=== PATIENT | female | born 1985 | race Two or more races ===

== ENCOUNTER 2019-12-11 17:24 | Emergency (ER) | payer OTHER, SELFPAY ==
[2019-12-11 17:25] VITALS: BP 150/88; PULSE 81; RESP 20; TEMP 36.4; O2SAT 100
[2019-12-11 18:04] VITALS: BP 150/88; PULSE 100; RESP 20; TEMP 36.4; O2SAT 100
--- NOTE | 2019-12-11 18:18 | ED.GENADULT ---
HPI - General Adult General Chief complaint: Headache Stated complaint: headache History of Present Illness HPI narrative: Patient is a 34-year-old female presents the urgent care via POV for evaluation of a headache that has been present for approximately 5 days. She reports her headache to be intermittent and stabbing and throbbing in nature. Headache is located in the occipital region that radiates to frontal region. She also reports mild nausea, lightheaded, fatigue, and photophobia. No relief with 1000 mg of Tylenol. Current pain is 5 out of 10 on a pain scale. Sleep improved symptoms. Of note, she reports she has been unusually stressed. She states she has a 4-month-old, a sister who relies on her for emotional support, and lack of sleep. Denies history of hypertension, renal insufficiency, diabetes mellitus. pertinent negatives: fever, chills, sweats, change in appetite, poor p.o. intake, dizziness, lymphadenopathy, vision changes, swelling, erythema, weakness, syncope, vertigo, LOC, seizure activity, memory loss, difficulty with coordination/gait/equilibrium, paresthesias, abdominal pain, vomiting, diarrhea, constipation, shortness of breath, cough, chest pain, and heart palpitations/murmurs. Additionally, she denies any systemic symptoms, illness, or condition (eg, fever, weight loss, cancer, , immunocompromised state, including human immunodeficiency virus [HIV]). The onset is not new or sudden. Hx of headaches. Today's headache is different to previous headaches. She states this headache is more painful and it is the worst headache of her life. No associated conditions or features (eg, head trauma, illicit drug use, or toxic exposure; headache awakens from sleep, is worse with Valsalva maneuvers, or is precipitated by cough, exertion, or sexual activity) Related Data Home Medications Medication Instructions Recorded Confirmed norethindrone (contraceptive) mg 12/11/19 Allergies Allergy/AdvReac Type Severity Reaction Status Date / Time latex Allergy Mild ITCHING Verified 06/27/19 12:36 Review of Systems Review of Systems: Narrative: All other systems reviewed and are negative [facility] Family History Family History Grandparent Diabetes mellitus Carcinoma of colon Father Adrenal disease Heart disease Mother Parkinson disease Sibling Dameon de la Tourette disorder Social History Social History Smoking status: Unknown if ever smoked Second hand tobacco smoke exposure: No Alcohol intake: never Substance use: never Gender identity (if verbalized by the patient): Female Comments I have reviewed and agree with the patient's past medical, surgical, social, and family hx as documented by the RN. There is no relevant family history pertinent to the presenting complaint. Exam Narrative: Exam Narrative: GENERAL: Well-appearing, well-nourished, and in no acute distress. HEAD: Normocephalic, atraumatic. No sinus tenderness or facial swelling appreciated. No evidence of ear bleeding or drainage from ears. No evidence of foreign bodies. No signs of basilar skull fracture: no hemotympanum, bautista's sign, or raccoon's eyes. EYES: PERRLA and EOMI. No evidence of erythema, swelling, or drainage. ENT: Bilateral external ears and ear canals normal. Bilateral TMs are normal. No TM perforation. Nares clear, no septal hematoma or epistaxis. Bilateral turbinates without erythema/ swelling. Mucous membranes moist and pink. Uvula is midline without erythema and swelling. No evidence of petechial rash, cobblestoning, lesions, ulcers, erythema, swelling, exudates, peritonsillar abscess, tenting, or drooling. Breath odor and voice normal. NECK: Supple. No injury or pain appreciated. No lymphadenopathy or nuchal rigidity appreciated. CHEST: Bilateral lung
== END 2019-12-11 18:21 | disposition left against medical advice (07) ==
PROVIDERS: Emergency Provider Nurse Practitioner Family
DX: R51 Headache (principal); R01.1 Cardiac murmur, unspecified
CPT/HCPCS: 99213; G0463

== ENCOUNTER → 2021-05-15 03:47 | Outpatient (CLI) | payer OTHER, SELFPAY ==
[2021-05-15 18:14] LABS: SARS-CoV-2 RNA PCR Negative
== END ==
PROVIDERS: PCP Family Medicine; Visit Provider Physician Assistant Medical
DX: Z20.822 Contact with and (suspected) exposure to COVID-19 (principal); R09.89 Other specified symptoms and signs involving the circulatory and respiratory systems
CPT/HCPCS: C9803; U0003; U0005

== ENCOUNTER → 2021-10-08 08:36 | Outpatient (CLI) | payer OTHER, SELFPAY ==
--- NOTE | ~2021-10-08 | XR_ITS ---
EXAMINATION: XR foot RT min 3V EXAM DATE: 10/08/2021 08:54 INDICATION: M79.671 - Pain in right foot. TECHNIQUE: Right foot dorsoplantar, lateral and oblique projections obtained and reviewed. There is no prior study for comparison. FINDINGS: Right metatarsal bones unremarkable. There are no acute fractures or dislocations identifi ed. There is no subcutaneous gas. The soft tissue is unremarkable. There are no radiopaque foreig n bodies. There are no bony erosions identified. No periosteal reaction or band of sclerosis to sugg est subacute stress fracture. IMPRESSION: 1. Unremarkable XR foot RT min 3V exam. Reviewed, dictated and finalized at location A. ER MACHINE HAND
== END ==
PROVIDERS: PCP Family Medicine; Visit Provider Nurse Practitioner Family
DX: M79.671 Pain in right foot (principal)
CPT/HCPCS: 73630

== ENCOUNTER 2021-12-23 08:00 | Outpatient (RCR) | payer OTHER, SELFPAY ==
--- NOTE | 2021-11-25 10:08 | PTOPEVAL ---
PHYSICAL THERAPY INITIAL EVALUATION. Thank you for referring Whit Rivers to [facility].? The patient is scheduled to be seen for therapy?2x/week for 4 weeks. Please review, sign, date and return this plan of care JUAN. I agree with and certify that the following plan of care is medically necessary. Referring Physician Date Attending Provider: Abbey Ferguson DPM *PT Outpatient Evaluation Start: 11/25/21 Evaluation Information Diagnosis R plantar fascitis Onset Sep' Subjective Information Pt states she went to the foot Query Text:As Reported By Patient/ doctor 2 weeks ago, they gave Family her custom shoe insoles. She states she can only tolerate standing 4-5 hours before she absolutely needs to sit down, her pain increases during walking. She has a job that requires her to stand all day. Pt described her pain as someone stabbing her heel, since this started she has been walking on just the ball of her foot which causes other pains. 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 Pain started just in heel, is now along the medial arch, ball of her foot, and ankle, she also reports numbness and tingling. Pain Assessment Right Heel(s) Reported Pain Level 4 Pain Description Numbness,Stabbing,Tingling, With Movement Pain Frequency Acute,Intermittent Lowest Pain Intensity 2 Greatest Pain Intensity 10 Lower Extremity Range of Motion Gross Lower Extremity Range of Motion R hamstring - 35 Comments L hamsting -20 Ankle/Foot Range of Motion Right Ankle Dorsiflexion With Knee Extension 10 Range of Motion - Active Ankle Dorsiflexion With Knee Extension 18 Range of Motion - Passive Ankle Dorsiflexion With Knee Flexed 16 Range of Motion - Active Ankle Plantarflexion Range of Motion - 46 Active Ankle Range of Motion Comments L active df with knee bent 18 L active df with knee straight 0 L active pf 44 Foot
--- NOTE | 2021-12-16 08:30 | PCPTNOTE ---
Patient called & cancelled scheduled appointment this date due to children being sick.
--- NOTE | 2021-12-23 08:38 | PTOPEVAL ---
PHYSICAL THERAPY PROGRESS REPORT AND DISCHARGE NOTE. Thank you for referring Whit Rivers to [facility].? The patient is to be discharged from skilled physical therapy services at this time. Please review, sign, date and return this plan of care JUAN. I agree with and certify that the following plan of care is medically necessary. Referring Physician Date Attending Provider: Abbey Ferguson DPM *PT Outpatient Evaluation Start: 11/25/21 Evaluation Information Diagnosis R plantar fascitis Onset Sep' Subjective Information Pt states her pain in doing Query Text:As Reported By Patient/ better, she reports good Family compliance with her home exercise program. She has occasional heel pain but the stretches she has been taught help to relieve this. 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 Pain Assessment Right Heel(s) Reported Pain Level 0 Greatest Pain Intensity 3 Lower Extremity Range of Motion Gross Lower Extremity Range of Motion R hamstring - 20 Comments L hamstring -20 Ankle/Foot Range of Motion Right Ankle Dorsiflexion With Knee Extension 10 active Ankle Dorsiflexion With Knee Extension 18 passive Ankle Dorsiflexion With Knee Flexed 18 active Ankle Plantarflexion Range of Motion - 45 active Ankle Range of Motion Comments L active df with knee bent 18 L active df with knee straight 12 L active pf 44 Foot/Toe Range of Motion Comments B great toe extension 80 deg Lower Extremity Muscle Strength Testing Gross Lower Extremity Strength limited ROM during single leg heel raise Ankle Strength Right Ankle Dorsiflexion Strength 5 Normal Ankle Plantarflexion Strength 5 Normal Ankle Eversion Strength 5 Normal Ankle Inversion Strength 5 Normal Posture Ankle/Foot Posture (L) Neutral,(R) Neutral Foot Arch Posture (L) Medium Arch,(R) Medium Arch Gait Assessment Gait Pattern Assessment Other Gait Observations Increased pelvic rotation, and slight in toeing PT Clinical Summary Whit presents to therapy today for her progress report following 3 visits of therapy to address her plantar fascitis. Today she demonstrates increase active and passive ankle ROM, increase ankle strength, and
== END 2021-12-30 14:30 | disposition home or self-care (01) ==
LOC: ANHPT 08:00
PROVIDERS: PCP Family Medicine; Visit Provider Student in an Organized Health Care Education/Training Program
DX: M72.2 Plantar fascial fibromatosis (principal)
CPT/HCPCS: 97110; 97112; 97140; 97161; 97530

== ENCOUNTER 2022-02-19 14:04 | Emergency (ER) | payer OTHER, SELFPAY ==
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
[2022-02-19 14:06] VITALS: BP 156/104; PULSE 105; RESP 14; TEMP 36.5; O2SAT 99
[2022-02-19] MEDS: IBUPROFEN 600 MG TABLET PO (14:49)
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
--- NOTE | 2022-02-19 15:32 | PC.NURSE ---
removed c-collar - ok per Dr Robbins
== END 2022-02-19 16:31 | disposition home or self-care (01) ==
PROVIDERS: Emergency Provider Emergency Medicine; PCP Family Medicine
DX: S06.0X0A Concussion without loss of consciousness, initial encounter (principal); S16.1XXA Strain of muscle, fascia and tendon at neck level, initial encounter; Z86.2 Personal history of diseases of the blood and blood-forming organs and certain disorders involving the immune mechanism; E66.01 Morbid (severe) obesity due to excess calories; Z68.41 Body mass index [BMI] 40.0-44.9, adult; E55.9 Vitamin D deficiency, unspecified; V43.52XA Car driver injured in collision with other type car in traffic accident, initial encounter
CPT/HCPCS: 72125; 72128; 99284; A9270

== ENCOUNTER 2022-02-25 03:00 | Emergency (ER) | payer OTHER, SELFPAY ==
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
[2022-02-25 03:01] VITALS: BP 121/75; PULSE 69; RESP 18; TEMP 36.1; O2SAT 100
[2022-02-25 03:16] VITALS: BP 105/64; PULSE 71; RESP 18; O2SAT 96
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
[2022-02-25] MEDS: methocarbamoL 750 MG TABLET PO (03:52)
[2022-02-25 03:57] VITALS: BP 138/84; PULSE 72; RESP 16; O2SAT 100
== END 2022-02-25 03:58 | disposition home or self-care (01) ==
PROVIDERS: Emergency Provider Family Medicine; PCP Family Medicine
DX: M62.830 Muscle spasm of back (principal); E66.01 Morbid (severe) obesity due to excess calories; Z68.41 Body mass index [BMI] 40.0-44.9, adult; E55.9 Vitamin D deficiency, unspecified; F41.9 Anxiety disorder, unspecified; Z86.2 Personal history of diseases of the blood and blood-forming organs and certain disorders involving the immune mechanism; Z79.899 Other long term (current) drug therapy; V49.40XA Driver injured in collision with unspecified motor vehicles in traffic accident, initial encounter; M47.814 Spondylosis without myelopathy or radiculopathy, thoracic region
CPT/HCPCS: 72070; 99283; A9270

== ENCOUNTER 2023-07-22 19:47 | Emergency (ER) | payer OTHER, SELFPAY ==
[2023-07-22] VITALS (7 sets, daily range): BP systolic 119–135; BP diastolic 71–77; PULSE 80–90; RESP 13–19; TEMP 36.1; O2SAT 97–100
--- NOTE | ~2023-07-22 | CT_ITS ---
EXAMINATION: CT abdomen pelvis w con DATE: 07/22/2023 21:44 INDICATION: Abdominal pain. Diarrhea. Leukocytosis. TECHNIQUE: Computed tomography (CT) of the abdomen and pelvis was performed with 100 mL Omnipaque 350 intravenous contrast. Automated exposure control and iterative reconstruction technique were employe d. The dose-length product was 1605.66 mGy-cm. COMPARISON: CT abdomen and pelvis 11/28/2005 FINDINGS: The visualized portions of the lung bases demonstrate mild kyphosis. No pleural effusion. T he heart size is normal. No pericardial effusion. The liver is normal. There are gallstones in the ga llbladder, which is normal in size. The spleen, pancreas, adrenal glands, and kidneys are normal. The re are no dilated loops of bowel. There is liquid stool in the colon correlating with the symptom of diarrhea. The appendix is normal. There are no pathologically enlarged lymph nodes. There is no free intraperitoneal fluid. There is mild thoracic and lumbar spondylosis. IMPRESSION: 1. Cholelithiasis. No evidence of acute cholecystitis. Reviewed, dictated and finalized at location E. COLLECTOR OPERATOR
--- NOTE | ~2023-07-22 | XR_ITS ---
EXAMINATION: XR chest 1V portable DATE: 07/22/2023 20:29 INDICATION: Syncope. TECHNIQUE: A single frontal view of the chest was obtained. COMPARISON: Chest single view 09/13/2018 FINDINGS: There is mild elevation of left hemidiaphragm. No pneumonia, pleural effusion, or pneumotho rax. The heart size is normal. IMPRESSION: 1. No acute cardiopulmonary disease. Reviewed, dictated and finalized at location E. PATIONAL THERAPIST'S ASSISTANT
--- NOTE | 2023-07-22 19:50 | ECG_ITS ---
Measurements Intervals [place] Rate: 50 P: 5 VT: 168 QRS: 28 QRSD: 82 T: 37 QT: 402 QTc: 370 Interpretive Statements SINUS BRADYCARDIA BASELINE WANDER- III, AVR, AVF, V1-V2 BORDERLINE ECG COMPARED TO ECG 05/23/2019 12:55:25 SINUS BRADYCARDIA NOW PRESENT Electronically Signed On 07-24-2023 11:59:09 DETAIL MANAGER by Wilmer Garcia D.O.
[2023-07-22 20:04] LABS: Glucose Point of Care 150 mg/dl (65-105)
[2023-07-22 20:09] LABS: Basophils Absolute Auto 0.1 K/mm3 (0.0-0.1); Basophils Percent Auto 0.3 % (0.2-1.2); Eosinophils Absolute Auto 0.3 K/mm3 (0-0.3); Eosinophils Percent Auto 1.3 % (0-4.4); Hematocrit 43.6 % (37.0-47.0); Immature Granulocyte Absolute 0.07 K/mm3 (0.00-0.031); Immature Granulocyte Percent A 0.3 % (0-0.5); Lymphocytes Absolute Auto 3.31 K/mm3 (0.9-3.2); Lymphocytes Percent Auto 16.2 % (18.3-44.2); Mean Corpuscular HGB Conc 32.1 g/dl (32-36); Mean Corpuscular Hemoglobin 27.3 pg (26-34); Mean Corpuscular Volume 85.2 fl (80-100); Mean Platelet Volume 9.8 fl (7.4-10.4); Monocytes Absolute Auto 1.2 K/mm3 (0.1-0.6); Monocytes Percent Auto 5.9 % (2.6-8.5); Neutrophils Absolute Auto 15.6 K/mm3 (1.3-6.7); Platelet Count Result 322 k/mm3 (150-375); Red Blood Count 5.12 M/mm3 (4.2-5.4); Red Cell Distribution Width 12.7 % (11.5-14.5); White Blood Count 20.5 K/mm3 (4.5-10.0)
[2023-07-22 20:18] LABS: Alanine Aminotransferase 40 U/L (6-35); Albumin Level 4.7 g/dL (3.5-5.1); Alkaline Phosphatase 105 U/L (38-126); Anion Gap 13 mmol/L (8-16); Aspartate Amino Transferase 31 U/L (14-36); Bilirubin,Total 0.8 mg/dL (0.2-1.3); Blood Urea Nitrogen 13 mg/dL (7-17); Calcium 9.6 mg/dL (8.4-10.2); Carbon Dioxide 21 mmol/L (22-30); Chloride 104 mmol/L (98-107); Estimated Glomerular Filt Rate > 60; Glucose 149 mg/dL (65-110); Potassium 3.7 mmol/L (3.4-5.0); Sodium 138 mmol/L (137-145)
[2023-07-22] MEDS: SODIUM CHLORIDE 0.9% IV 1,000 ML 999 ML IV CONT ×2 (20:22)
--- NOTE | 2023-07-22 20:29 | ED.GENADULT ---
HPI - General Adult General Chief complaint: Syncope Stated complaint: syncope Time Seen by Provider: 07/22/23 20:06 History of Present Illness HPI narrative: Patient is a 38-year-old female who presents the emergency department with chief complaint of syncope. Patient reports throughout the day she has had multiple episodes of diarrhea and has been unable to keep fluids in her body. Patient states that every time she drinks something she has explosive watery diarrhea patient reports that she does not really have abdominal pain but does have cramping right before she has a bowel movement. Patient states that she had several episodes where she became extremely lightheaded and then briefly passed out. The patient denies chest pain denies shortness of breath patient states that she has had similar episodes in the past whenever she is getting dehydrated Related Data Home Medications Medication Instructions Recorded Confirmed multivitamin 1 tablet PO DAILY 12/12/20 07/11/23 Allergies Allergy/AdvReac Type Severity Reaction Status Date / Time No Known Allergies Allergy Verified 07/11/23 08:20 Review of Systems Review of Systems: A 10 system review of systems was completed on the patient and is negative except for what is stated in the HPI. Nursing and ancillary documentation was reviewed. [facility] Past Medical History Medical History Acute left flank pain Anemia Anxiety BMI 40.0-44.9, adult BMI 45.0-49.9, adult Obesity, Class III, BMI 40-49.9 (morbid obesity) Seasonal allergies Tendinopathy of right biceps tendon Vitamin D deficiency Surgical History Surgical History History of wisdom tooth extraction Family History Family History Grandparent Diabetes mellitus Carcinoma of colon Father Adrenal disease Heart disease Mother Parkinson disease Sibling Dameon de la Tourette disorder Social History Social History Smoking status: Never smoker Second hand tobacco smoke exposure: No Alcohol intake: current Substance use: never Substance use type: does not use Lack of Transportation: No Lack of Food: Never True Current Housing: I Have Housing Concerned About Future Housing: No Difficulty Paying Gas/Electric Bills: No Difficulty Paying for Meds: No Currently Unemployed: No Education: Associate Degree Difficulty w/ Childcare or Family Care: No Living arrangements: with family Occupation/Education: occupation 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 Gender identity (if verbalized by the patient): Female Exam Narrative: GENERAL: Well-appearing, well-nourished, and in no acute distress. HEAD: Normocephalic, atraumatic. EYES: PERRLA and EOMI. ENT: Nares clear, no rhinorrhea or epistaxis. Mucous membranes moist. NECK: Supple. CHEST: Clear to auscultation. No respiratory distress. HEART: Regular rate and rhythm. No murmur heard. Normal peripheral pulses. ABDOMEN: Soft, nontender, nondistended, normal active bowel sounds. EXTREMITIES: Normal range of motion. No edema. SKIN: Warm, dry, no rash. NEURO: No focal deficits. Alert and oriented x3. PSYCH: Normal mood and affect. Course Vital Signs Vital signs: Vital Signs Temperature 36.1 C L 07/22/23 20:02 Pulse Rate 81 07/22/23 20:02 Respiratory Rate 14 07/22/23 20:02 Blood Pressure 125/71 07/22/23 20:02 Pulse Oximetry 97 07/22/23 20:02 Temperature 36.1 C L 07/22/23 20:02 Pulse Rate 90 07/22/23 22:00 Respiratory Rate 17 07/22/23 22:00 Blood Pressure 119/77 07/22/23 20:31 Pulse Oximetry 100 07/22/23 22:00 Medical Decision Making Vital Si
[2023-07-22 20:35] LABS: Lactic Acid Reflex 1.4 mmol/L (0.7-2.0)
[2023-07-22 20:41] LABS: Lipase 49 U/L (23-300); Magnesium 1.8 mg/dL (1.6-2.3)
[2023-07-22 21:49] LABS: Appearance Urine Cloudy (Clear); Bacteria Urine 1+ /hpf; Bilirubin Urine Negative (Negative); Blood Urine Negative (Negative); Color Urine Dark Yellow (Yellow); Glucose Urine UA Negative (Negative); Ketones Urine Negative (Negative); Leukocyte Esterase Ur Negative LEU/UL (Negative); Need Manual Microscopic Reviewed; Nitrate Urine Negative (Negative); Protein Urine Trace mg/dL (Negative); Specific Grav Ur 1.029 (1.001-1.035); Squamous Epithelial Cell Urine Few /hpf (Few); Urobilinogen Urine 0.2 mg/dL (<2.0)
[2023-07-22 21:50] LABS: Add Urine Microscopic? YES
== END 2023-07-22 23:12 | disposition home or self-care (01) ==
PROVIDERS: Emergency Provider Emergency Medicine; PCP Family Medicine
DX: R55 Syncope and collapse (principal); N39.0 Urinary tract infection, site not specified; R19.7 Diarrhea, unspecified
CPT/HCPCS: 36415; 71045; 74177; 80053; 81001; 81025; 82948; 83605; 83690; 83735; 85025; 87086; 93005; 96360; 99284; J2405; J7030; Q9967

== ENCOUNTER 2024-02-07 08:04 | Emergency (ER) | payer OTHER, SELFPAY ==
[2024-02-07 08:07] VITALS: BP 146/80; PULSE 82; RESP 17; O2SAT 99
--- NOTE | 2024-02-07 08:10 | ECG_ITS ---
SEE SCANNED COPY FOR CONFIRMED REPORT MTDD
[2024-02-07 08:12] VITALS: PULSE 87
[2024-02-07 08:17] VITALS: BP 146/80; PULSE 88
[2024-02-07 08:18] VITALS: BP 143/111; BP 146/103; PULSE 87; PULSE 88
[2024-02-07 08:40] LABS: Basophils Percent Auto 0.3 % (0.2-1.2); Eosinophils Absolute Auto 0.2 K/mm3 (0-0.3); Eosinophils Percent Auto 2.1 % (0-4.4); Hematocrit 39.7 % (37.0-47.0); Hemoglobin 12.9 g/dL (12.0-15.0); Immature Granulocyte Absolute 0.04 K/mm3 (0.00-0.031); Immature Granulocyte Percent A 0.4 % (0-0.5); Lymphocytes Percent Auto 21.5 % (18.3-44.2); Mean Corpuscular HGB Conc 32.5 g/dl (32-36); Mean Corpuscular Hemoglobin 28.1 pg (26-34); Mean Corpuscular Volume 86.5 fl (80-100); Mean Platelet Volume 9.6 fl (7.4-10.4); Monocytes Absolute Auto 0.6 K/mm3 (0.1-0.6); Monocytes Percent Auto 6.1 % (2.6-8.5); Neutrophils Absolute Auto 7.1 K/mm3 (1.3-6.7); Neutrophils Percent Auto 69.6 % (45.5-73.1); Platelet Count Result 298 k/mm3 (150-375); Red Blood Count 4.59 M/mm3 (4.2-5.4); Red Cell Distribution Width 12.7 % (11.5-14.5); White Blood Count 10.2 K/mm3 (4.5-10.0)
[2024-02-07 08:51] LABS: Alanine Aminotransferase 16 U/L (6-35); Albumin Level 4.1 g/dL (3.5-5.1); Alkaline Phosphatase 100 U/L (38-126); Anion Gap 6 mmol/L (4-12); Aspartate Amino Transferase 17 U/L (14-36); Bilirubin,Total 0.3 mg/dL (0.2-1.3); Blood Urea Nitrogen 12 mg/dL (7-17); Calcium 8.7 mg/dL (8.4-10.2); Carbon Dioxide 21 mmol/L (22-30); Chloride 111 mmol/L (98-107); Estimated CRCL calculation 108 ml/min; Estimated Glomerular Filt Rate > 60; Glucose 121 mg/dL (65-110); Potassium 3.7 mmol/L (3.4-5.0); Sodium 138 mmol/L (137-145)
[2024-02-07 09:22] VITALS: BP 110/64; PULSE 71; RESP 12; O2SAT 100
[2024-02-07] MEDS: SODIUM CHLORIDE 0.9% IV 1,000 ML 999 ML IV CONT (09:42)
--- NOTE | 2024-02-07 10:00 | ED.DIZZY ---
HPI - Dizziness General Chief Complaint: Dizziness Stated Complaint: dizzy Time Seen by Provider: 02/07/24 08:56 Source: patient Mode of arrival: ambulatory Limitations: no limitations History of Present Illness HPI Narrative: This is a 38-year-old female who presents to the ED with chief complaint of dizziness and palpitations this started last night. Patient reports the dizziness is worse with movements. States it does feel like she gets lightheaded and that she might pass out. Denies any full syncope. Reports that when she lays on her right side sometimes the palpitations will improve. Dizziness and palpitations seem to be intermittent. Denies any chest pain or shortness of breath. She does note that her kids have been sick and she started to get sick yesterday. Denies fevers, chills, cough, headache, back pain, abdominal pain, nausea, vomiting, numbness, weakness. States she has not had any problems with ambulation. Related Data Home Medications Medication Instructions Recorded Confirmed multivitamin 1 tablet PO DAILY 12/12/20 12/02/23 cholecalciferol (vitamin D3) 125 250 mcg PO DAILY 12/02/23 01/09/24 mcg (5,000 unit) capsule norethindrone acetate 1 mg-ethinyl 1 tablet PO DAILY 01/09/24 01/09/24 estradiol 20 mcg tablet Allergies Allergy/AdvReac Type Severity Reaction Status Date / Time No Known Allergies Allergy Verified 02/07/24 08:13 Review of Systems Review of Systems: All systems as dictated in HPI PMFSH Past Medical History Medical History Acute left flank pain Anemia Anxiety BMI 40.0-44.9, adult Obesity, Class III, BMI 40-49.9 (morbid obesity) Seasonal allergies Tendinopathy of right biceps tendon Vitamin D deficiency Surgical History Surgical History History of wisdom tooth extraction Family History Family History Grandparent Diabetes mellitus Carcinoma of colon Father Adrenal disease Heart disease Mother Parkinson disease H/O Jaciel thyroiditis Sibling Dameon de la Tourette disorder Low testosterone Social History Social History Smoking status: Never smoker Second hand tobacco smoke exposure: No Alcohol intake: current Substance use: never Substance use type: does not use Do You Feel Safe in your Home?: Yes Lack of Transportation: No Lack of Food: Never True Current Housing: I Have Housing Concerned About Future Housing: No Difficulty Paying Gas/Electric Bills: No Difficulty Paying for Meds: No Currently Unemployed: No Education: Associate Degree Difficulty w/ Childcare or Family Care: No Living arrangements: with family Occupation/Education: occupation 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 Gender identity (if verbalized by the patient): Female Exam Narrative: GENERAL: Well-appearing, well-nourished, and in no acute distress. HEAD: Normocephalic, atraumatic. EYES: PERRLA and EOMI. ENT: Nares clear, no rhinorrhea or epistaxis. Mucous membranes moist. Oropharynx without tonsillar hypertrophy exudate or other lesions. NECK: Supple. No adenopathy or masses. CHEST: No respiratory distress. Clear to auscultation. No wheezes rales or rhonchi HEART: Regular rate and rhythm. No murmur heard. Normal peripheral pulses. ABDOMEN: Soft, nontender, nondistended, normal active bowel sounds. MSK: Normal range of motion. No edema. SKIN: Warm, dry, no rash. NEURO: Alert and oriented x4. No focal deficits. No nystagmus. Coordination intact. PSYCH: Normal mood and affect. Course Vital Signs Vital signs: Vital Signs Pulse Rate 82 02/07/24 08:07 Respiratory Rate 17 02/07/24 08:07 Blood Pressure 146/80 H 02/07/24 08:07 Pulse Oxi
[2024-02-07] MEDS: METOCLOPRAMIDE HCL INJ 10 MG/2 ML VIAL IV PUSH (10:39)
[2024-02-07] MEDS: MECLIZINE HCL 25 MG TABLET PO (10:39)
[2024-02-07 10:53] VITALS: BP 128/93; PULSE 75; RESP 15; O2SAT 100
== END 2024-02-07 10:55 | disposition home or self-care (01) ==
PROVIDERS: Emergency Medicine; Emergency Provider Physician Assistant; PCP Family Medicine
DX: R42 Dizziness and giddiness (principal); Z86.2 Personal history of diseases of the blood and blood-forming organs and certain disorders involving the immune mechanism; E55.9 Vitamin D deficiency, unspecified; Z79.3 Long term (current) use of hormonal contraceptives; Z79.899 Other long term (current) drug therapy
CPT/HCPCS: 36415; 80053; 85025; 93005; 96361; 96374; 99284; A9270; J2765; J7030

== ENCOUNTER 2024-04-18 08:31 | Outpatient (CLI) | payer OTHER, SELFPAY ==
[2024-04-18 09:06] LABS: Anion Gap 10 mmol/L (4-12); Blood Urea Nitrogen 15 mg/dL (7-17); Carbon Dioxide 24 mmol/L (22-30); Chloride 103 mmol/L (98-107); Cholesterol 180 mg/dL (0-200); Estimated Glomerular Filt Rate > 60; Glucose 100 mg/dL (65-110); HDL Direct 46 mg/dL; Potassium 4.5 mmol/L (3.4-5.0); Sodium 137 mmol/L (137-145); Triglycerides 143 mg/dL (<150)
[2024-04-18 09:16] LABS: Basophils Percent Auto 0.4 % (0.2-1.2); Eosinophils Absolute Auto 0.2 K/mm3 (0-0.3); Eosinophils Percent Auto 2.1 % (0-4.4); Hematocrit 40.5 % (37.0-47.0); Hemoglobin 12.9 g/dL (12.0-15.0); Immature Granulocyte Absolute 0.04 K/mm3 (0.00-0.031); Immature Granulocyte Percent A 0.4 % (0-0.5); Lymphocytes Percent Auto 27.7 % (18.3-44.2); Mean Corpuscular HGB Conc 31.9 g/dl (32-36); Mean Platelet Volume 10.2 fl (7.4-10.4); Monocytes Absolute Auto 0.7 K/mm3 (0.1-0.6); Monocytes Percent Auto 7.1 % (2.6-8.5); Neutrophils Absolute Auto 5.8 K/mm3 (1.3-6.7); Neutrophils Percent Auto 62.3 % (45.5-73.1); Platelet Count Result 311 k/mm3 (150-375); Red Cell Distribution Width 12.6 % (11.5-14.5); White Blood Count 9.4 K/mm3 (4.5-10.0)
[2024-04-18 09:17] LABS: LDL Cholesterol Direct 106 mg/dL
[2024-04-18 10:02] LABS: Hemoglobin A1C 5.6 % (<5.7)
[2024-04-18 10:10] LABS: Iron 51 ug/dL (37-170)
[2024-04-18 10:19] LABS: Percent Iron Saturation 14 % (20-50)
[2024-04-18 12:05] LABS: Vitamin D 25 Hydroxy 30.9 ng/mL
[2024-04-18 12:57] LABS: Free T4 Free Thyroxine 1.06 ng/mL (0.78-2.19)
== END 2024-04-18 08:32 | disposition home or self-care (01) ==
LOC: ANHLAB 08:34
PROVIDERS: PCP Family Medicine; Visit Provider Family Medicine
DX: E55.9 Vitamin D deficiency, unspecified (principal); R73.9 Hyperglycemia, unspecified; Z13.220 Encounter for screening for lipoid disorders; D64.9 Anemia, unspecified; F41.9 Anxiety disorder, unspecified
CPT/HCPCS: 36415; 80048; 80061; 82306; 82728; 83036; 83540; 83550; 84439; 84443; 85025

== ENCOUNTER 2024-04-18 08:54 | Outpatient (CLI) | payer OTHER, SELFPAY ==
--- NOTE | ~2024-04-18 | XR_ITS ---
3 VIEWS LUMBAR SPINE Ordering provider: Tawanda Sanders MD History: . M54.16 - Radiculopathy, lumbar region; chronic . Comparison: None. FINDINGS: VERTEBRAL BODIES: No visible fracture or subluxation. DISK SPACES: Normal. SOFT TISSUES: Normal. IMPRESSION: No acute osseous abnormality lumbar spine. Reviewed, dictated and finalized at location A.
== END 2024-04-18 08:55 ==
PROVIDERS: PCP Chiropractor; Visit Provider Family Medicine
DX: M54.16 Radiculopathy, lumbar region (principal)
CPT/HCPCS: 72114

== ENCOUNTER 2025-05-05 08:21 | Outpatient (CLI) | payer OTHER, SELFPAY ==
--- NOTE | ~2025-05-05 | US_ITS ---
US OB limited 05/05/2025 09:27 Indication: Possible fluid leak. Evaluate amniotic fluid index. Procedure: Limited obstetrical ultrasound Comparison: 05/21/2016 Findings: There is a single living intrauterine in vertex presentation. heart rate 162 BPM. Placenta is posterior without previa. Normal HILL measures 19.5 cm. No cervical funneling. Impression: 1: Normal HILL measures 19.5 cm. Reviewed, dictated and finalized at location O. Impression: 1: Normal HILL measures 19.5 cm.
[2025-05-05 08:46] VITALS: BP 116/74; PULSE 91
--- NOTE | 2025-05-05 09:26 | PC.NURSE ---
Called Larissa Whitaker CNM with ultrasound report. January D/C home.
[2025-05-05 09:36] LABS: OBXCEM ROM Plus Negative (Negative)
== END 2025-05-05 09:30 | disposition home or self-care (01) ==
LOC: ANHOBOP 08:27 → ANHOBPP 08:28
PROVIDERS: Advanced Practice Midwife; PCP Family Medicine; Visit Provider Obstetrics & Gynecology
DX: O42.90 Premature rupture of membranes, unspecified as to length of time between rupture and onset of labor, unspecified weeks of gestation (principal); Z3A.00 Weeks of gestation of pregnancy not specified
CPT/HCPCS: 59025; 76815; 84112; 99199

== ENCOUNTER 2025-07-26 05:48 | Inpatient (IN) | payer OTHER, SELFPAY ==
[2025-07-26] VITALS (210 sets, daily range): BP systolic 112–180; BP diastolic 52–128; PULSE 25–109; RESP 20–24; TEMP 36.6–37.1; O2SAT 80–100; BMI 48.8
--- OUTSIDE RECORDS SUMMARY | 2025-07-26 05:55 | XMS_ITS | Clinical Summary ---
Author Organization [facility] Address [address] [place] [address] Care Team Providers Care Gis Instructor Name Role Phone Nathaniel Chacon MD Primary Care Provider [phone] Allergies No known active allergies Medications multi vitamin/minerals tablet Take 1 tablet by mouth daily. Active Cholecalciferol (VITAMIN D) 1000 UNIT tablet Take 1,000 Units by mouth daily. Active Ascorbic Acid (VITAMIN C) 100 MG tablet Take 100 mg by mouth daily. Active guaifenesin-code ine 100-10 MG/5ML syrupIndications :Acute bronchitis, unspecified organism,Upper respiratory tract infection, unspecified type Take 5 mLs by mouth every 4 (four) hours as needed for Cough. 120 mL 08/24/2018 Active predniSONE 20 MG tabletIndication s:Acute bronchitis, unspecified organism,Upper respiratory tract infection, unspecified type 3 tabs by mouth today, then 2 tabs by mouth every morning x 3 days, then 1 tab every morning x 3 days, then 1/2 tab every morning x 3 days. 14 tablet 08/24/2018 Active Active Problems Problem Noted Date Diagnosed Date BMI 40.0-44.9, adult 09/13/2017 Overview (08/24/2018): Transitioned From: Obese Occipital headache 09/13/2017 Weight increased 09/13/2017 Immunizations Immunization Administration Dates Next Due Tdap (Boostrix) 04/26/2016 Family History Medical History Relation Comments None Father CVA Maternal Grandmother Cancer Maternal Grandmother None Mother Diabetes Paternal Grandfather Tourettes Sister Relation Status Comments Father Maternal Grandmother Mother Paternal Grandfather Sister Social History Tobacco Use Types Packs/Day Years Used Date Smoking Tobacco: Never Smokeless Tobacco: Never Comments Unknown Sex and Gender Information Value Date Recorded Sex Assigned at Not on file Legal Sex Female 11:37 PM CDT Gender Identity Not on file Sexual Orientation Not on file Last Filed Vital Signs Vital Sign Reading Time Taken Comments Blood Pressure 110/70 08/24/2018 10:38 AM [facility] Pulse 90 08/24/2018 10:38 AM [facility] Temperature 36.9 C (98.4 F) 08/24/2018 10:38 AM [facility] Respiratory Rate 18 08/24/2018 10:38 AM [facility] Oxygen Saturation 99% 08/24/2018 10:38 AM [facility] Inhaled Oxygen Concentration - - Weight 133.4 kg (294 lb) 08/24/2018 10:38 AM [facility] Height 170.2 cm (5' 7) 08/24/2018 10:38 AM [facility] Body Mass Index 46.05 08/24/2018 10:38 AM [facility] Plan of Treatment Health Maintenance Due Date Last Done Comments Cervical Cancer Screening Pa p Smear (Age 30 to 64) Every 3 Years 1987 Annual Physical 1990 Hepatitis B Vaccines (1 of 3 - 19+ 3-dose series) 2006 HPV Vaccines (1 - 3-dose SCD M series) 2014 Cervical Cancer Screening Pa p with HPV Testing (Age 30 to 64) Every 5 Years 2017 Cervical Cancer Screening with HPV 2017 COVID-19 Vaccine (2024-2 6 season) 2025 Influenza Adult (#1) 2025 DTaP, Tdap and Td Vaccines ( 2 - Td or Tdap) 04/26/2026 04/26/2016 Hepatitis C Completed 11/17/2016 Hepatitis A Vaccines Aged Out No long er eligible based on patient's age to complete this topic Meningococcal B Vaccine Aged Out No l onger eligible based on patient's age to complete this topic Meningococcal Vaccine Aged Out No susan raquel eligible based on patient's age to complete this topic Pneumococcal Vaccine: Pediat rics (0 to 5 Years) and At-Risk Patients (6 to 49 Years) Aged Out No longer eligi ble based on patient's age to complete this topic RSV Immunizations Under 20 Months Aged Out No longer eligible based on patient's age to complete this topic Procedures Procedure Name Priority Date/Time Associated Diagnosis Comments HEPATITIS C ANTIBODY Routine 11/17/2016 9:15 AM [facility] from Last 3 Months or Most Recently Relevant to Health Maintenance Results * HEPATITIS C ANTIBODY (11/17/2016 9:15 AM [facility]) HEPATITIS C AB NON-REACTI VE NON-REACTI VE 11/18/2016 6:29 PM [facility] Comment: TEST[place] [address] SERUM OR PLASMA SPECIMEN / Unknown 11/17/2016 9:15 AM [facility] 11/17/2016 10:47 AM [facility] us Generic Conversion Md [facility] Final R esult [facility] [address] [place] [id number], from Last 3 Months or Most Recently Relevant to Health Maintenance Insurance [place] Care Teams Gis Instructor Relationship Specialty Start Date End Date Nathaniel Chacon MD PCP - General INTERNAL MEDICINE 08/24/18
--- OUTSIDE RECORDS SUMMARY | 2025-07-26 05:55 | XMS_ITS | Continuity of Care Document ---
Author Organization [facility] Address [address] [place] [address] Care Team Providers Care Manager Cancer Name Role Phone HA MORTON Primary Care Provider Assessment No assessment recorded. Plan of Treatment Reminders Order Date Submit Date Provider Last Modified By Organization Details Last Modified Time Details Appointments INDUCTI ON 2024 06:00A M VILLA BurnsM Not available Not available Not available U/S OB BPP 2024 08:30A M ULTRASOUND Not available Not available Not available NST 2024 09:00A M NST SCHEDULE Not available Not available Not available OB ROUTINE 2024 09:30A M Medina Whitaker CNM Not available Not available Not available U/S OB BPP 2024 08:30A M ULTRASOUND Not available Not available Not available NST 2024 09:00A M NST SCHEDULE Not available Not available Not available OB ROUTINE 2024 09:30A M Medina Whitaker CNM Not available Not available Not available U/S OB BPP 2024 08:30A M ULTRASOUND Not available Not available Not available NST 2024 09:00A M NST SCHEDULE Not available Not available Not available OB ROUTINE 2024 09:30A M Medina Whitaker CNM Not available Not available Not available Lab None recorde d. Referral None recorde d. Procedures None recorde d. Surgeries None recorde d. Imaging non-str ess test 2024 025 [email or web address], [address], [address], [place], [address], 07/10/2025 17:20:31 Medication Orders None recorde d. Patient TargetsNo targets recorded. Patient InstructionsNo instructions recorded. Reason for Referral None Reported. Results Created Date Observation Date Name Description Value Unit Range Abnormal Flag Note LastModifiedBy Organization Detail LastModifiedTime 02/15/2002/14/2025 [UNIT Y] ANEUP LOIDY NIPT fraction 3.9% normal Not Available [facility] [address], [place], [address], 02/14/2025 01:55:32 02/15/20 25 02/14/2025 [UNIT Y] ANEUP LOIDY NIPT 22Q11.2 microdeletio n LOW RISK <1 in 10,000 normal Not Available [facility] [address], [place], [address], 02/14/2025 01:55:32 02/15/20 25 02/14/2025 [UNIT Y] ANEUP LOIDY NIPT sex chromosome aneuploidy NOT DETECT ED normal Not Available [facility] [address], [place], [address], 02/14/2025 01:55:32 02/15/20 25 02/14/2025 [UNIT Y] ANEUP LOIDY NIPT monosomy X LOW RISK <1 in 10,000 normal Not Available [facility] [address], [place], [address], 02/14/2025 01:55:32 02/15/20 25 02/14/2025 [UNIT Y] ANEUP LOIDY NIPT trisomy 13 LOW RISK <1 in 10,000 normal Not Available [facility] [address], [place], [address], 02/14/2025 01:55:32 02/15/20 25 02/14/2025 [UNIT Y] ANEUP LOIDY NIPT trisomy 18 LOW RISK <1 in 10,000 normal Not Available [facility] [address], [place], [address], 02/14/2025 01:55:32 02/15/20 25 02/14/2025 [UNIT Y] ANEUP LOIDY NIPT trisomy 21 LOW RISK <1 in 10,000 normal Not Available [facility] [address], [place], [address], 02/14/2025 01:55:32 02/15/20 25 02/14/2025 [UNIT Y] ANEUP LOIDY NIPT sex MALE normal Not Available [facility] [address], [place], [address], 02/14/2025 01:55:32 02/15/20 25 02/14/2025 [UNIT Y] ANEUP LOIDY NIPT gestation SINGLE TON normal Not Available [facility] [address], [place], [address], 02/14/2025 01:55:32 02/15/20 25 02/14/2025 [UNIT Y] ANEUP LOIDY NIPT for detailed report, see pdf See PDF normal Not Available [facility] [address], [place], [address], 02/14/2025 01:55:32 02/18/20 25 02/17/2025 [UNIT Y] OTTO Islas sickle cell disease/beta -thalassemia /hemoglobino pathies carrier screen NEGATI VE normal Not Available [facility] [address], [place], [address], 02/17/2025 10:24:39 02/18/20 25 02/17/2025 [UNIT Y] OTTO JORGE Islas alpha-thalas semia carrier screen NEGATI VE normal Not Available [facility] [address], [place], [address], 02/17/2025 10:24:39 02/18/20 25 02/17/2025 [UNIT Y] OTTO LANGFORD Janel cystic fibrosis carrier screen NEGATI VE normal Not Available [facility] [address], [place], [address], 02/17/2025 10:24:39 02/18/20 25 02/17/2025 [UNIT Y] OTTO LANGFORD Janel spinal muscular atrophy carrier screen NEGATI VE 2 SMN1 copies , SNP not presen t normal Not Available [facility] [address], [place], [address], 02/17/2025 10:24:39 02/18/20 25 02/17/2025 [UNIT Y] OTTO KNIGHTTracie Islas for detailed report, see pdf See PDF normal Not Available [facility] [address], [place], [address], 02/17/2025 10:24:39 02/07/20 25 02/06/2025 CBC W/DIF F WBC 12.0 10'3/ uL 3.5-10 .5 high Not Available [facility] (Lab) [address], [place], [address], 02/07/2025 13:12:55 02/07/20 25 02/06/2025 CBC W/DIF F RBC 4.52 10'6/ uL (based on docume nted legal sex) 3.80-5 .20 Not Available [facility] (Lab) [address], [place], [address], 02/07/2025 13:12:55 02/07/20 25 02/06/2025 CBC W/DIF F HGB 12.4 g/dL (based on docume nted legal sex) 11.6-1 5.4 Not Available [facility] (Lab) [address] , [place], [address], 02/07/2025 13:12:55 02/07/20 25 02/06/2025 CBC W/DIF F HCT 38.9 % (based on docume nted legal sex) 34.0-4 5.0 Not Available [facility] (Lab) [address], [place], [address], 02/07/2025 13:12:55 02/07/20 25 02/06/2025 CBC W/DIF F MCV 86.1 fL 80.0-9 9.0 Not Available [facility] (Lab) [address], [place], [address], 02/07/2025 13:12:55 02/07/20 25 02/06/2025 CBC W/DIF F MCH 27.4 pg 27.0-3 4.0 Not Available [facility] (Lab) [address], [place], [address], 02/07/2025 13:12:55 02/07/20 25 02/06/2025 CBC W/DIF F MCHC 31.9 g/dL 32.0-3 5.5 low Not Available [facility] (Lab) [address], [place], [address], 02/07/2025 13:12:55 02/07/20 25 02/06/2025 CBC W/DIF F RDW 12.9 % 11.0-1 5.0 Not Available [facility] (Lab) [address], [place], [address], 02/07/2025 13:12:55 02/07/20 25 02/06/2025 CBC W/DIF F plt 281 10'3/ uL 150-40 0 Not Available [facility] (Lab) [address] [place], [address], 02/07/2025 13:12:55 02/07/20 25 02/06/2025 CBC W/DIF F MPV 11.0 fL 8.8-12 .1 Not Available [facility] (Lab) [address], [place], [address], 02/07/2025 13:12:55 02/07/20 25 02/06/2025 CBC W/DIF F NRBC's 0.0 % 0.0 Not Available [facility] (Lab) [address], [place], [address], 02/07/2025 13:12:55 02/07/20 25 02/06/2025 CBC W/DIF F absolute NRBCs 0.0 10'3/ uL no refere nce range establ ished Not Available [facility] (Lab) [address], [place], [address], 02/07/2025 13:12:55 02/07/20 25 02/06/2025 CBC W/DIF F neutrophils 72.5 % 34.0-7 3.0 Not Available [facility] (Lab) [address], [place], [address], 02/07/2025 13:12:55 02/07/20 25 02/06/2025 CBC W/DIF F lymphocytes 20.4 % 15.0-5 0.0 Not Available [facility] (Lab) [address], [place], [address], 02/07/2025 13:12:55 02/07/20 25 02/06/2025 CBC W/DIF F monocytes 5.9 % 1.0-15 .0 Not Available [facility] (Lab) [address], [place], [address], 02/07/2025 13:12:55 02/07/20 25 02/06/2025 CBC W/DIF F eosinophils 0.6 % 0.0-8. 0 Not Available [facility] (Lab) [address], [place], [address], 02/07/2025 13:12:55 02/07/20 25 02/06/2025 CBC W/DIF F basophils 0.3 % 0.0-2. 0 Not Available [facility] (Lab) [address], [place], [address], 02/07/2025 13:12:55 02/07/2002/06/2025 CBC W/DIF F immature granulocytes 0.3 % no define d refere nce range Immat ure Granu locyt es (IG) repre sents autom ated enume ratio n of Metam yeloc ytes, Myelo cytes and Promy elocy shlomo when IG is < 5%. Blast s are not inclu ded in IG and repor ruy separ ately if prese nt. Not Available [facility] (Lab) [address], [place], [address], 02/07/2025 13:12:55 02/07/20 25 02/06/2025 CBC W/DIF F absolute neutrophils 8.7 10'3/ uL 1.5-8. 0 high Not Available [facility] (Lab) [address], [place], [address], 02/07/2025 13:12:55 02/07/20 25 02/06/2025 CBC W/DIF F absolute lymphocytes 2.4 10'3/ uL 1.0-4. 0 Not Available [facility] (Lab) [address], [place], [address], 02/07/2025 13:12:55 02/07/20 25 02/06/2025 CBC W/DIF F absolute monocytes 0.7 10'3/ uL 0.2-1. 0 Not Available [facility] (Lab) [address], [place], [address], 02/07/2025 13:12:55 02/07/20 25 02/06/2025 CBC W/DIF F absolute eosinophils 0.1 10'3/ uL 0.0-0. 6 Not Available [facility] (Lab) [address], [place], [address], 02/07/2025 13:12:55 02/07/20 25 02/06/2025 CBC W/DIF F absolute basophils 0.0 10'3/ uL 0.0-0. 3 Not Available [facility] (Lab) [address], [place], [address], 02/07/2025 13:12:55 02/07/2002/06/2025 CBC W/DIF F absolute immature granulocytes 0.0 10'3/ uL 0.00-0 .10 Refer ence range s for nonbi nary/ inter sex or unspe cifie d gende r patie nts have not been estab lishe d. Pleas e refer to the follo wing table for range s estab lishe d for cisge nder patie nts and evalu ate in the clini patrice kristal xt of the indiv idual patie nt: https :[email or web address] [email or web address] book. [email or web address].or g/gen derx Not Available [facility] (Lab) [address], [place], [address], 02/07/2025 13:12:55 02/07/2002/06/2025 HEPAT ITIS B SURFA CE ANTIG EN hepatitis B surface antigen Non-re active non-re active This assay was perfo rmed using [employer] ratio n reage nts and test kits. Value s obtai dexter with other assay metho ds or kits canno t be used inter lopez eably . Not Available [facility] (Lab) [address], [place], [address], 02/07/2025 13:12:55 02/07/2002/06/2025 HIV 1/2 ANTIG EN/AN TIBOD Y, REFLE X CONFI RMATI ON HIV antigen/anti body Nonrea ctive nonrea ctive HIV-1 antig en and HIV-1 /HIV- 2 antib odies were not detec ruy. No labor atory evide nce of HIV infec tion. Not Available [facility] (Lab) [address] , [place], [address], 02/07/2025 13:12:56 02/07/2002/06/2025 HEPAT ITIS C ANTIB ANITA SCREE N, REFLE X TO CONFI RMATI ON hepatitis C antibody Non-re active non-re active Antib odies to HCV Not Detec ruy, does not exclu de the possi bilit y of expos ure to HCV. Not Available [facility] (Lab) [address], [place], [address], 02/07/2025 13:12:56 02/07/2002/06/2025 RUBEL LA IGG ANTIB ANITA, QUANT rubella antibodies, IgG Reacti ve reacti ve Not Available [facility] (Lab) [address], [place], [address], 02/07/2025 13:12:56 02/07/2002/06/2025 RUBEL LA IGG ANTIB ANITA, QUANT rubella antibodies, IgG quant 61.9 IU/mL >=10 Non-r eacti ve (Non- Immun e) <10 IU/mL React essie (Immu ne) > or = 10 IU/mL Not Available [facility] (Lab) [address], [place], [address], 02/07/2025 13:12:56 02/07/2002/06/2025 TYPE/ RH/SC REEN ABO/Rh type O POS Not Available [facility] (Lab) [address], [place], [address], 02/07/2025 13:12:57 02/07/2002/06/2025 TYPE/ RH/SC REEN antibody screen NEG Not Available [facility] (Lab) [address], [place], [address], 02/07/2025 13:12:57 02/07/20 25 02/06/2025 TYPE/ RH/SC REEN exp date 2024 23:59 Not Available [facility] (Lab) [address], [place], [address], 02/07/2025 13:12:57 02/07/20 25 02/06/2025 RPR SCREE N, REFLE X TITER /CONF IRMAT ION RPR qualitative Nonrea ctive nonrea ctive Not Available [facility] (Lab) [address], [place], [address], 02/07/2025 13:12:57 02/07/20 25 02/06/2025 HEMOG LOBIN A1C hemoglobin A1C 5.4 % 4.0-5. 6 The Ameri can Diabe shlomo [employer] iatio n recom mends that a prima ry goal of thera py shoul d be a HBA1C of < 7% and that physi cians shoul d reeva luate the treat ment regim en in patie nts with HBA1C value s consi stent ly > 8%. <5.7% Carol l 5.7 - 6.4% Incre ased risk for diabe shlomo >=6.5 % Diagn ostic of diabe shlomo <7.0% Goal of thera py >8.0% Actio n sugge sted Not Available [facility] (Lab) [address], [place], [address], 02/07/2025 13:12:57 02/07/2002/06/2025 CULTU RE: URINE result report SEE RESULT S BELOW Test: Cultu re: Urine Speci men Sourc e: Urine - Clean Catch Speci men Type: Urine Speci men Date: 2024 1737 Resul t Date: 2024 0700 Resul t Statu s: Final resul t Abnor mal: No Resul ting Lab: [facility] [address] [facility] [address] Tel: CULTU RE ----- ----- ----- --- Cultu re resul t (>=3 organ isms prese nt) indic ates possi ble conta minat ion. Repea t cultu re if sympt oms indic ate. Not Available [facility] (Lab) [address], [place], [address], 02/08/2025 08:03:32 05/28/20 25 02/06/2025 drug scree n, urine Amphetamines : negati ve Not Available [facility] [address], [place], [address], 02/06/2025 18:30:19 02/07/20 25 02/06/2025 drug scree n, urine Cannabinoids : negati ve Not Available [facility] [address], [place], [address], 02/06/2025 18:30:19 02/07/20 25 02/06/2025 drug scree n, urine Cocaine: negati ve Not Available [facility] [address], [place], [address], 02/06/2025 18:30:19 02/07/20 25 02/06/2025 drug scree n, urine Opiates: negati ve Not Available [facility] [address], [place], [address], 02/06/2025 18:30:19 02/07/20 25 02/06/2025 drug scree n, urine Phenocyclidi ne: negati ve Not Available [facility] [address], [place], [address], 02/06/2025 18:30:19 02/07/20 25 02/06/2025 drug scree n, urine Barbiturates : negati ve Not Available [facility] [address], [place], [address], 02/06/2025 18:30:19 02/07/20 25 02/06/2025 drug scree n, urine Benzodiazepi brayan: negati ve Not Available [facility] [address], [place], [address], 02/06/2025 18:30:19 02/07/20 25 02/06/2025 drug scree n, urine Ethanol: negati ve Not Available [facility] [address], [place], [address], 02/06/2025 18:30:19 02/07/20 25 02/06/2025 drug scree n, urine Hallucinogen s: negati ve Not Available [facility] [address], [place], [address], 02/06/2025 18:30:19 02/07/20 25 02/06/2025 drug scree n, urine Inhalants: negati ve Not Available [address], [place], [address], 02/06/2025 18:30:19 02/07/20 25 02/06/2025 drug scree n, urine Anabolic Steroids: negati ve Not Available [address], [place], [address], 02/06/2025 18:30:19 02/07/20 25 02/06/2025 drug scree n, urine Other: negati ve Not Available [address], [place], [address], 02/06/2025 18:30:19 05/15/20 25 05/15/2025 HEMOG LOBIN (HGB) HGB 10.9 g/dL (based on docume nted legal sex) 11.6-1 5.4 low Not Available [facility] (Lab) [address], [place], [address], 05/16/2025 09:55:38 05/15/20 25 05/15/2025 HEMAT OCRIT (HCT) HCT 35.7 % (based on docume nted legal sex) 34.0-4 5.0 Not Available [facility] (Lab) [address], [place], [address], 05/16/2025 09:55:39 05/15/2005/15/2025 CBC W/DIF F WBC 14.6 10'3/ uL 3.5-10 .5 high Not Available [facility] (Lab) [address], [place], [address], 05/16/2025 09:55:39 05/15/2005/15/2025 CBC W/DIF F RBC 4.01 10'6/ uL (based on docume nted legal sex) 3.80-5 .20 Not Available [facility] (Lab) [address], [place], [address], 05/16/2025 09:55:39 05/15/2005/15/2025 CBC W/DIF F HGB 10.9 g/dL (based on docume nted legal sex) 11.6-1 5.4 low Not Available [facility] (Lab) [address], [place], [address], 05/16/2025 09:55:39 05/15/2005/15/2025 CBC W/DIF F HCT 35.7 % (based on docume nted legal sex) 34.0-4 5.0 Not Available [facility] (Lab) [address], [place], [address], 05/16/2025 09:55:39 05/15/2005/15/2025 CBC W/DIF F MCV 89.0 fL 80.0-9 9.0 Not Available [facility] (Lab) [address], [place], [address], 05/16/2025 09:55:39 05/15/2005/15/2025 CBC W/DIF F MCH 27.2 pg 27.0-3 4.0 Not Available [facility] (Lab) [address], [place], [address], 05/16/2025 09:55:39 05/15/2005/15/2025 CBC W/DIF F MCHC 30.5 g/dL 32.0-3 5.5 low Not Available [facility] (Lab) [address], [place], [address], 05/16/2025 09:55:39 05/15/2005/15/2025 CBC W/DIF F RDW 14.5 % 11.0-1 5.0 Not Available [facility] (Lab) [address], [place], [address], 05/16/2025 09:55:39 05/15/2005/15/2025 CBC W/DIF F plt 218 10'3/ uL 150-40 0 Not Available [facility] (Lab) [address], [place], [address], 05/16/2025 09:55:39 05/15/2005/15/2025 CBC W/DIF F MPV 11.1 fL 8.8-12 .1 Not Available [facility] (Lab) [address], [place], [address], 05/16/2025 09:55:39 05/15/2005/15/2025 CBC W/DIF F NRBC's 0.0 % 0.0 Not Available [facility] (Lab) [address], [place], [address], 05/16/2025 09:55:39 05/15/2005/15/2025 CBC W/DIF F absolute NRBCs 0.0 10'3/ uL no refere nce range establ ished Not Available [facility] (Lab) [address], [place], [address], 05/16/2025 09:55:39 05/15/2005/15/2025 CBC W/DIF F neutrophils 78.7 % 34.0-7 3.0 high Not Available [facility] (Lab) [address], [place], [address], 05/16/2025 09:55:39 05/15/20 05/15/2025 CBC W/DIF F lymphocytes 15.0 % 15.0-5 0.0 Not Available [facility] (Lab) [address], [place], [address], 05/16/2025 09:55:39 05/15/2005/15/2025 CBC W/DIF F monocytes 4.9 % 1.0-15 .0 Not Available [facility] (Lab) [address], [place], [address], 05/16/2025 09:55:39 05/15/2005/15/2025 CBC W/DIF F eosinophils 0.6 % 0.0-8. 0 Not Available [facility] (Lab) [address], [place], [address], 05/16/2025 09:55:39 05/15/2005/15/2025 CBC W/DIF F basophils 0.3 % 0.0-2. 0 Not Available [facility] (Lab) [address], [place], [address], 05/16/2025 09:55:39 05/15/2005/15/2025 CBC W/DIF F immature granulocytes 0.5 % no define d refere nce range Immat ure Granu locyt es (IG) repre sents autom ated enume ratio n of Metam yeloc ytes, Myelo cytes and Promy elocy shlomo when IG is < 5%. Blast s are not inclu ded in IG and repor ruy separ ately if prese nt. Not Available [facility] (Lab) [address], [place], [address], 05/16/2025 09:55:39 05/15/2005/15/2025 CBC W/DIF F absolute neutrophils 11.4 10'3/ uL 1.5-8. 0 high Not Available [facility] (Lab) [address], [place], [address], 05/16/2025 09:55:39 05/15/2005/15/2025 CBC W/DIF F absolute lymphocytes 2.2 10'3/ uL 1.0-4. 0 Not Available [facility] (Lab) [address], [place], [address], 05/16/2025 09:55:39 05/15/2005/15/2025 CBC W/DIF F absolute monocytes 0.7 10'3/ uL 0.2-1. 0 Not Available [facility] (Lab) [address], [place], [address], 05/16/2025 09:55:39 05/15/2005/15/2025 CBC W/DIF F absolute eosinophils 0.1 10'3/ uL 0.0-0. 6 Not Available [facility] (Lab) [address], [place], [address], 05/16/2025 09:55:39 05/15/2005/15/2025 CBC W/DIF F absolute basophils 0.1 10'3/ uL 0.0-0. 3 Not Available [facility] (Lab) [address], [place], [address], 05/16/2025 09:55:39 05/15/2005/15/2025 CBC W/DIF F absolute immature granulocytes 0.1 10'3/ uL 0.00-0 .10 Refer ence range s for nonbi nary/ inter sex or unspe cifie d gende r patie nts have not been estab lishe d. Pleas e refer to the follo wing table for range s estab lishe d for cisge nder patie nts and evalu ate in the clini patrice kristal xt of the indiv idual patie nt: https :[email or web address] [email or web address] [email or web address].or g/gen derx Not Available [facility] (Lab) [address], [place], [address], 05/16/2025 09:55:39 05/15/2005/15/2025 GTT - GESTA KHANH Bryce PRIMITIVO Janel, ACOG OB glucose, 1 hour screen 115 mg/dL 70-135 Not Available [facility] (Lab) [address], [place], [address], 05/16/2025 09:55:40 05/15/20 25 05/15/2025 URIC ACID uric acid 4.1 mg/dL 2.3-6. 6 Not Available [facility] (Lab) [address], [place], [address], 05/16/2025 09:55:40 05/15/20 25 05/15/2025 CMP(C OMPRE HENSI VE METAB OLIC PANEL ) sodium 138 mmol/ L 133-14 6 Not Available [facility] (Lab) [address], [place], [address], 05/16/2025 09:55:41 05/15/20 25 05/15/2025 CMP(C OMPRE HENSI VE METAB OLIC PANEL ) potassium 4.1 mmol/ L 3.5-5. 1 Not Available [facility] (Lab) [address], [place], [address], 05/16/2025 09:55:41 05/15/20 25 05/15/2025 CMP(C OMPRE HENSI VE METAB OLIC PANEL ) chloride 104 mmol/ L 98-107 Not Available [facility] (Lab) [address] [place], [address], 05/16/2025 09:55:41 05/15/20 25 05/15/2025 CMP(C OMPRE HENSI VE METAB OLIC PANEL ) carbon dioxide 24 mmol/ L 21-31 Not Available [facility] (Lab) [address] [place], [address], 05/16/2025 09:55:41 05/15/20 25 05/15/2025 CMP(C OMPRE HENSI VE METAB OLIC PANEL ) anion gap 10 mmol/ L 4-13 Not Available [facility] (Lab) [address], [place], [address], 05/16/2025 09:55:41 05/15/2005/15/2025 CMP(C OMPRE HENSI VE METAB OLIC PANEL ) blood urea nitrogen 7 mg/dL 7-25 Not Available [facility] (Lab) [address], [place], [address], 05/16/2025 09:55:41 05/15/2005/15/2025 CMP(C OMPRE HENSI VE METAB OLIC PANEL ) creatinine 0.55 mg/dL 0.60-1 .30 low Not Available [facility] (Lab) [address], [place], [address], 05/16/2025 09:55:41 05/15/2005/15/2025 CMP(C OMPRE HENSI VE METAB OLIC PANEL ) egfrcr (CKD-epi 2020) >90 mL/mi n/1.7 3_m2 >=60 Not Available [facility] (Lab) [address], [place], [address], 05/16/2025 09:55:41 05/15/2005/15/2025 CMP(C OMPRE HENSI VE METAB OLIC PANEL ) calcium 8.7 mg/dL 8.3-10 .5 Not Available [facility] (Lab) [address], [place], [address], 05/16/2025 09:55:41 05/15/2005/15/2025 CMP(C OMPRE HENSI VE METAB OLIC PANEL ) glucose 115 mg/dL 70-100 high Not Available [facility] (Lab) [address], [place], [address], 05/16/2025 09:55:41 05/15/2005/15/2025 CMP(C OMPRE HENSI VE METAB OLIC PANEL ) protein, total 5.7 g/dL 6.4-8. 3 low Not Available [facility] (Lab) [address], [place], [address], 05/16/2025 09:55:41 05/15/2005/15/2025 CMP(C OMPRE HENSI VE METAB OLIC PANEL ) albumin 3.1 g/dL 3.5-5. 0 low Not Available [facility] (Lab) [address], [place], [address], 05/16/2025 09:55:41 05/15/20 25 05/15/2025 CMP(C OMPRE HENSI VE METAB OLIC PANEL ) ALT 9 units /L 9-43 Not Available [facility] (Lab) [address], [place], [address], 05/16/2025 09:55:41 05/15/2005/15/2025 CMP(C OMPRE HENSI VE METAB OLIC PANEL ) alkaline phosphatase 114 units /L 34-104 high Not Available [facility] (Lab) [address], [place], [place], [address], 05/16/2025 09:55:41 05/15/20 25 05/15/2025 CMP(C OMPRE HENSI VE METAB OLIC PANEL ) AST 11 units /L 13-39 low Not Available [facility] (Lab) [address], [place], [address], 05/16/2025 09:55:41 05/15/2005/15/2025 CMP(C OMPRE HENSI VE METAB OLIC PANEL ) bilirubin, total 0.3 mg/dL 0.2-1. 2 Not Available [facility] (Lab) [address] [place], [address], 05/16/2025 09:55:41 05/15/2005/15/2025 HIV 1/2 ANTIG EN/AN TIBOD Y, REFLE X CONFI RMATI ON HIV antigen/anti body Nonrea ctive nonrea ctive HIV-1 antig en and HIV-1 /HIV- 2 antib odies were not detec ruy. No labor atory evide nce of HIV infec tion. Not Available [facility] (Lab) [address], [place], [address], 05/16/2025 09:55:41 05/15/20 25 05/15/2025 PROTE IN/CR EATIN INE RATIO , URINE creatinine, urine 13.0 mg/dL R-No refer ence range estab lishe d for this assay Not Available [facility] (Lab) [address], [place], [address], 05/16/2025 09:55:42 05/15/20 25 05/15/2025 PROTE IN/CR EATIN INE RATIO , URINE protein, urine <4 mg/dL R-No refer ence range estab lishe d for this assay Not Available [facility] (Lab) [address], [place], [address], 05/16/2025 09:55:42 05/15/20 25 05/15/2025 PROTE IN/CR EATIN INE RATIO , URINE protein/crea tinine ratio, urine . No Refer ence Range avail able for Rando m Urine s. Unabl e to perfo rm calcu latio n due to low david te yogi ntrat ion A prote in to creat inine ratio of >=0.1 9 is a good predi ctor of signi fican t prote inuri a. A level of <0.14 can rule out signi fican t prote inuri a. Not Available [facility] (Lab) [address], [place], [address], 05/16/2025 09:55:42 05/15/20 25 05/15/2025 RPR SCREE N, REFLE X TITER /CONF IRMAT ION RPR qualitative Nonrea ctive nonrea ctive Not Available [facility] (Lab) [address], [place], [address], 05/16/2025 09:55:42 06/26/20 25 06/26/2025 PROTE IN/CR EATIN INE RATIO , URINE creatinine, urine 177.6 mg/dL R-No refer ence range estab lishe d for this assay Not Available [facility] (Lab) [address], [place], [address], 06/27/2025 04:29:05 06/26/20 25 06/26/2025 PROTE IN/CR EATIN INE RATIO , URINE protein, urine 15 mg/dL R-No refer ence range estab lishe d for this assay Not Available [facility] (Lab) [address], [place], [address], 06/27/2025 04:29:05 06/26/2006/26/2025 PROTE IN/CR EATIN INE RATIO , URINE protein/crea tinine ratio, urine 0.08 . No Refer ence Range avail able for Rando m Urine s. A prote in to creat inine ratio of >=0.1 9 is a good predi ctor of signi fican t prote inuri a. A level of <0.14 can rule out signi fican t prote inuri a. Not Available [facility] (Lab) [address], [place], [address], 06/27/2025 04:29:05 06/26/20 25 06/26/2025 CBC W/DIF F WBC 13.4 10'3/ uL 3.5-10 .5 high Not Available [facility] (Lab) [address], [place], [address], 06/27/2025 04:29:05 06/26/20 25 06/26/2025 CBC W/DIF F RBC 4.22 10'6/ uL (based on docume nted legal sex) 3.80-5 .20 Not Available [facility] (Lab) [address], [place], [address], 06/27/2025 04:29:05 06/26/20 25 06/26/2025 CBC W/DIF F HGB 11.9 g/dL (based on docume nted legal sex) 11.6-1 5.4 Not Available [facility] (Lab) [address], [place], [address], 06/27/2025 04:29:05 06/26/2006/26/2025 CBC W/DIF F HCT 37.5 % (based on docume nted legal sex) 34.0-4 5.0 Not Available [facility] (Lab) [address], [place], [address], 06/27/2025 04:29:05 06/26/2006/26/2025 CBC W/DIF F MCV 88.9 fL 80.0-9 9.0 Not Available [facility] (Lab) [address], [place], [address], 06/27/2025 04:29:05 06/26/2006/26/2025 CBC W/DIF F MCH 28.2 pg 27.0-3 4.0 Not Available [facility] (Lab) [address], [place], [address], 06/27/2025 04:29:05 06/26/2006/26/2025 CBC W/DIF F MCHC 31.7 g/dL 32.0-3 5.5 low Not Available [facility] (Lab) [address], [place], [address], 06/27/2025 04:29:05 06/26/2006/26/2025 CBC W/DIF F RDW 14.6 % 11.0-1 5.0 Not Available [facility] (Lab) [address], [place], [address], 06/27/2025 04:29:05 06/26/2006/26/2025 CBC W/DIF F plt 224 10'3/ uL 150-40 0 Not Available [facility] (Lab) [address] [place], [address], 06/27/2025 04:29:05 06/26/20 06/26/2025 CBC W/DIF F MPV 12.2 fL 8.8-12 .1 high Not Available [facility] (Lab) [address], [place], [address], 06/27/2025 04:29:05 06/26/20 25 06/26/2025 CBC W/DIF F NRBC's 0.0 % 0.0 Not Available [facility] (Lab) [address], [place], [address], 06/27/2025 04:29:05 06/26/20 25 06/26/2025 CBC W/DIF F absolute NRBCs 0.0 10'3/ uL no refere nce range establ ished Not Available [facility] (Lab) [address], [place], [address], 06/27/2025 04:29:05 06/26/20 25 06/26/2025 CBC W/DIF F neutrophils 73.2 % 34.0-7 3.0 high Not Available [facility] (Lab) [address], [place], [address], 06/27/2025 04:29:05 06/26/20 25 06/26/2025 CBC W/DIF F lymphocytes 18.3 % 15.0-5 0.0 Not Available [facility] (Lab) [address], [place], [address], 06/27/2025 04:29:05 06/26/20 25 06/26/2025 CBC W/DIF F monocytes 7.5 % 1.0-15 .0 Not Available [facility] (Lab) [address], [place], [address], 06/27/2025 04:29:05 06/26/20 25 06/26/2025 CBC W/DIF F eosinophils 0.4 % 0.0-8. 0 Not Available [facility] (Lab) [address], [place], [address], 06/27/2025 04:29:05 06/26/20 25 06/26/2025 CBC W/DIF F basophils 0.2 % 0.0-2. 0 Not Available [facility] (Lab) [address], [place], [address], 06/27/2025 04:29:05 06/26/20 25 06/26/2025 CBC W/DIF F immature granulocytes 0.4 % no define d refere nce range Immat ure Granu locyt es (IG) repre sents autom ated enume ratio n of Metam yeloc ytes, Myelo cytes and Promy elocy shlomo when IG is < 5%. Blast s are not inclu ded in IG and repor ruy separ ately if prese nt. Not Available [facility] (Lab) [address], [place], [address], 06/27/2025 04:29:05 06/26/20 25 06/26/2025 CBC W/DIF F absolute neutrophils 9.8 10'3/ uL 1.5-8. 0 high Not Available [facility] (Lab) [address], [place], [address], 06/27/2025 04:29:05 06/26/20 25 06/26/2025 CBC W/DIF F absolute lymphocytes 2.5 10'3/ uL 1.0-4. 0 Not Available [facility] (Lab) [address], [place], [address], 06/27/2025 04:29:05 06/26/20 25 06/26/2025 CBC W/DIF F absolute monocytes 1.0 10'3/ uL 0.2-1. 0 Not Available [facility] (Lab) [address], [place], [address], 06/27/2025 04:29:05 06/26/20 25 06/26/2025 CBC W/DIF F absolute eosinophils 0.1 10'3/ uL 0.0-0. 6 Not Available [facility] (Lab) [address], [place], [address], 06/27/2025 04:29:05 06/26/20 25 06/26/2025 CBC W/DIF F absolute basophils 0.0 10'3/ uL 0.0-0. 3 Not Available [facility] (Lab) [address], [place], [address], 06/27/2025 04:29:05 06/26/20 25 06/26/2025 CBC W/DIF F absolute immature granulocytes 0.1 10'3/ uL 0.00-0 .10 Refer ence range s for nonbi nary/ inter sex or unspe cifie d gende r patie nts have not been estab lishe d. [facility] for range s estab lishe d for cisge nder patie nts and evalu ate in the clini patrice kristal xt of the indiv idual patie nt: [email or web address] :[email or web address] [email or web address] book. nm.or g/gen derx Not Available [facility] (Lab) [address], [place], [address], 06/27/2025 04:29:05 06/26/2006/26/2025 URIC ACID uric acid 4.8 mg/dL 2.3-6. 6 Not Available [facility] (Lab) [address] [place], [address], 06/27/2025 04:29:06 06/26/2006/26/2025 CMP(C OMPRE HENSI VE METAB OLIC PANEL ) sodium 138 mmol/ L 133-14 6 Not Available [facility] (Lab) [address] [place], [address], 06/27/2025 04:29:06 06/26/20 25 06/26/2025 CMP(C OMPRE HENSI VE METAB OLIC PANEL ) potassium 4.0 mmol/ L 3.5-5. 1 Not Available [facility] (Lab) [address] [place], [address], 06/27/2025 04:29:06 06/26/20 25 06/26/2025 CMP(C OMPRE HENSI VE METAB OLIC PANEL ) chloride 103 mmol/ L 98-107 Not Available [facility] (Lab) [address], [place], [address], 06/27/2025 04:29:06 06/26/20 25 06/26/2025 CMP(C OMPRE HENSI VE METAB OLIC PANEL ) carbon dioxide 26 mmol/ L 21-31 Not Available [facility] (Lab) [address], [place], [address], 06/27/2025 04:29:06 06/26/2006/26/2025 CMP(C OMPRE HENSI VE METAB OLIC PANEL ) anion gap 9 mmol/ L 4-13 Not Available [facility] (Lab) [address], [place], [address], 06/27/2025 04:29:06 06/26/2006/26/2025 CMP(C OMPRE HENSI VE METAB OLIC PANEL ) blood urea nitrogen 7 mg/dL 7-25 Not Available [facility] (Lab) [address], [place], [address], 06/27/2025 04:29:06 06/26/2006/26/2025 CMP(C OMPRE HENSI VE METAB OLIC PANEL ) creatinine 0.66 mg/dL 0.60-1 .30 Not Available [facility] (Lab) [address], [place], [address], 06/27/2025 04:29:06 06/26/2006/26/2025 CMP(C OMPRE HENSI VE METAB OLIC PANEL ) egfrcr (CKD-epi 2020) >90 mL/mi n/1.7 3_m2 >=60 Not Available [facility] (Lab) [address], [place], [address], 06/27/2025 04:29:06 06/26/20 25 06/26/2025 CMP(C OMPRE HENSI VE METAB OLIC PANEL ) calcium 9.0 mg/dL 8.3-10 .5 Not Available [facility] (Lab) [address], [place], [address], 06/27/2025 04:29:06 06/26/20 25 06/26/2025 CMP(C OMPRE HENSI VE METAB OLIC PANEL ) glucose 74 mg/dL 70-100 Not Available [facility] (Lab) [address], [place], [address], 06/27/2025 04:29:06 06/26/2006/26/2025 CMP(C OMPRE HENSI VE METAB OLIC PANEL ) protein, total 6.1 g/dL 6.4-8. 3 low Not Available [facility] (Lab) [address], [place], [address], 06/27/2025 04:29:06 06/26/20 25 06/26/2025 CMP(C OMPRE HENSI VE METAB OLIC PANEL ) albumin 3.3 g/dL 3.5-5. 0 low Not Available [facility] (Lab) [address], [place], [address], 06/27/2025 04:29:06 06/26/20 25 06/26/2025 CMP(C OMPRE HENSI VE METAB OLIC PANEL ) ALT 36 units /L 9-43 Not Available [facility] (Lab) [address], [place], [address], 06/27/2025 04:29:06 06/26/20 25 06/26/2025 CMP(C OMPRE HENSI VE METAB OLIC PANEL ) alkaline phosphatase 131 units /L 34-104 high Not Available [facility] (Lab) [address] [place], [address], 06/27/2025 04:29:06 06/26/20 25 06/26/2025 CMP(C OMPRE HENSI VE METAB OLIC PANEL ) AST 20 units /L 13-39 Not Available [facility] (Lab) [address], [place], [address], 06/27/2025 04:29:06 06/26/20 25 06/26/2025 CMP(C OMPRE HENSI VE METAB OLIC PANEL ) bilirubin, total 0.3 mg/dL 0.2-1. 2 Not Available [facility] (Lab) [address], [place], [address], 06/27/2025 04:29:06 07/10/20 25 07/10/2025 CULTU RE: GROUP B STREP SCREE N, REFLE X SUSCE PTIBI LITY result report SEE RESULT S BELOW Test: Cultu re: Group B Strep , Refle x Susce ptibi lity ([facility]/ [facility] ) Speci men Sourc e: Vagin a/Rec fernando Speci men Type: Vagin al/Re ctal Speci men Date: 07/10 1436 Resul t Date: 2024 1404 Resul t Statu s: Final resul t Abnor mal: No Resul ting Lab: [facility] [address] [facility] [address] Tel: CULTU RE ----- ----- ----- --- No Group B strep isola ruy at 2 days (bailee ctive broth enhan cemen t) Not Available [facility] (Lab) [address], [place], [address], 07/13/2025 15:08:33 02/07/20 25 02/06/2025 US, opal lemos, nucha l trans lucen cy No observ ation record ed. [email or web address] [address], [place], [address], 02/06/2025 17:26:10 02/07/20 25 02/06/2025 US, opal lemos, follo w-up No observ ation record ed. Vivi [address], [place], [address], 02/07/2025 11:49:39 03/27/20 25 03/27/2025 US, obste tric, 2nd or 3rd trime ster No observ ation record ed. [email or web address] [address], [place], [address], 03/27/2025 16:50:03 03/27/20 25 03/27/2025 US, obste tric, 2nd or 3rd trime ster No observ ation record ed. [email or web address] [address], [place], [address], 04/01/2025 20:55:55 04/24/20 25 04/24/2025 US, obste tric, follo w-up No observ ation record ed. [email or web address] [address], [place], [address], 04/24/2025 18:50:20 04/24/20 25 04/24/2025 US, obste tric, follo w-up No observ ation record ed. [email or web address] [address], [place], [address], 05/02/2025 18:12:06 05/05/20 25 05/05/2025 US, obste tric, limit ed No observ ation record ed. [address] [facility], [place], [address], 05/08/2025 11:23:32 05/05/20 25 05/05/2025 US, obste tric, limit ed No observ ation record ed. [address], [place], [address], 05/08/2025 11:23:15 05/06/20 25 05/05/2025 non-s tress test No observ ation record ed. [facility] [address], [place], [address], 05/14/2025 16:17:57 06/12/2006/12/2025 US, obste tric, follo w-up No observ ation record ed. [email or web address] [address], [place], [address], 06/12/2025 13:37:49 06/12/2006/12/2025 US, obste tric, follo w-up No observ ation record ed. [email or web address] [address], [place], [address], 06/14/2025 12:40:46 06/26/2006/26/2025 non-s tress test No observ ation record ed. [address], [place], [address], 06/26/2025 17:40:02 06/26/20 non-s tress test No observ ation record ed. [email or web address] [address], [place], [address], 06/26/2025 17:40:25 07/03/2007/03/2025 US, obsttracie tric, bioph ysica l profi le + non-s tress test No observ ation record ed. [email or web address] [address], [place], [address], 07/03/2025 10:21:51 07/03/2007/03/2025 US, obste tric, bioph ysica l profi le + non-s tress test No observ ation record ed. [email or web address] [address], [place], [address], 07/03/2025 10:36:03 07/03/2007/03/2025 non-s tress test No observ ation record ed. [email or web address] [address], [place], [address], 07/03/2025 17:34:00 07/03/20 non-s tress test No observ ation record ed. [address], [place], [address], 07/03/2025 16:02:31 07/10/2007/10/2025 US, obste tric, follo w-up No observ ation record ed. [email or web address] Trinidad [address], [place], [address], 07/10/2025 11:53:53 07/10/2007/10/2025 US, obste tric, follo w-up No observ ation record ed. [facility] [address], [place], [address], 07/10/2025 13:24:28 07/10/2007/10/2025 US, obste tric, bioph ysica l profi le + non-s tress test No observ ation record ed. [facility] [address], [place], [address], 07/10/2025 13:24:41 07/10/2007/10/2025 non-s tress test No observ ation record ed. [address], [place], [address], 07/10/2025 16:54:42 07/10/20 non-s tress test No observ ation record ed. [address], [place], [address], 07/10/2025 16:55:51 07/17/2007/17/2025 non-s tress test No observ ation record ed. FELICITY [address], [place], [address], 07/19/2025 11:50:49 07/17/20 non-s tress test No observ ation record ed. [address], [place], [address], 07/17/2025 10:56:47 07/17/2007/17/2025 US, obste tric, bioph ysica l profi le + non-s tress test No observ ation record ed. [email or web address] [address], [place], [address], 07/17/2025 13:24:17 07/17/2007/17/2025 US, obste tric, bioph ysica l profi le + non-s tress test No observ ation record ed. [email or web address] [address], [place], [address], 07/17/2025 11:37:56 07/24/2007/24/2025 US, obste tric, bioph ysica l profi le + non-s tress test No observ ation record ed. [email or web address] [address], [place], [address], 07/24/2025 11:16:54 07/24/2007/24/2025 US, obste tric, bioph ysica l profi le + non-s tress test No observ ation record ed. bertha [address], [place], [address], 07/24/2025 18:17:48 07/24/2007/24/2025 non-s tress test No observ ation record ed. bertha [address], [place], [address], 07/24/2025 18:19:09 07/24/20 25 non-s tress test No observ ation record ed. [address], [place], [address], 07/24/2025 16:00:08 Result Notes None recorded. Problems Name Problem SNOMED Code Status Onset Date Resolution Date Notes Provider Name and Address Organization Details Recorded Time Pregnanc y test negative 294401052 Completed 201409/02/2020 Pregnanc y examinat ion or test, negative result;R ecorded Elsewher e: No Locat ion: [facility] S ource: EHR Stage Technician elena: N Practi ce ID: 0001 Grabiel lable Time: 03:15:00 PM Beverley lopez, [facility] 0 17:56:19 Obesity [id number] Completed 201409/03/2020 Obesity, unspecif ied;Prac bronson ID: 0001 Beverley lopez, [facility] 0 14:20:47 Speciali zed medical examinat ion Completed 201409/02/2020 Routine gynecolo gical examinat ion;Prac bronson ID: 0001 Beverley lopez, [facility] 0 17:57:40 Screenin g for malignan t neoplasm of cervix Completed 201409/02/2020 Pap Smear;Pr actice ID: 0001 Beverley lopez, [facility] 0 17:56:38 Educatio n Completed 201409/02/2020 Family planning ;Recorde d Elsewher e: No Locat ion: [facility] S ource: EHR Stage Technician elena: N Practi ce ID: 0001 Grabiel lable Time: 04:00:00 PM Beverley lopez [facility] 0 17:55:08 Female inferbonifacio covington [id number] Completed 201410/17/2020 Ebony covington, female, of unspecif ied origin;Tomeka sabatice ID: 0001 Beverley lopez, [facility] 1 10:55:45 Body mass index 30+ - obesity [id number] Completed 201510/17/2020 Body mass index (BMI) 39.0-39. 9, adult;Re corded Elsewher e: No Locat ion: [facility] S ource: EHR Stage Technician elena: N Practi ce ID: 0001 Grabiel lable Time: 11:00:00 AM Beverley lopez, [facility] 1 10:55:40 Syncope and collapse [id number] Completed 201510/17/2020 Syncope and collapse ;Recorde d Elsewher e: No Locat ion: [facility] S ource: EHR Stage Technician elena: N Practi ce ID: 0001 Grabiel lable Time: 10:30:00 AM Beverley lopez, [facility] 1 10:56:12 Gestatio n less than 9 weeks [id number] Completed 201509/02/2020 Less than 8 weeks gestatio n of pregnanc y;Practi ce ID: 0001 Beverley lopez, [facility] 0 17:55:27 Pregnanc y, childbir th and puerperi um finding Completed 201510/17/2020 Encntr for suprvsn of normal first preg, first trimeste r;Practi ce ID: 0001 Beverley lopez, [facility] 1 10:55:59 Gestatio n period, 12 weeks [id number] Completed 201509/02/2020 12 weeks gestatio n of pregnanc y;Practi ce ID: 0001 Beverley lopez [facility] 0 17:55:30 Pregnanc y, childbir th and puerperi um finding Completed 201509/02/2020 Encntr for suprvsn of normal first preg, second trimeste r;Practi ce ID: 0001 Beverley Dos Santostz jessica, [facility] 0 17:56:27 Gestatio n period, 32 weeks [id number] Completed 201509/02/2020 32 weeks gestatio n of pregnanc y;Practi ce ID: 0001 Beverley Sun jessica, [facility] 0 17:55:35 Pregnanc y, childbir th and puerperi um finding Completed 201509/03/2020 Encounte r for supervis ion of normal first pregnanc y, third trimeste r;Record ed Elsewher e: No Locat ion: [facility] S ource: EHR Stage Technician elena: N Practi ce ID: 0001 Grabiel lable Time: 05:30:00 PM Beverley Dos Santostz jessica, [facility] 0 14:20:36 Gestatio n period, 33 weeks [id number] Completed 201509/02/2020 33 weeks gestatio n of pregnanc y;Record ed Elsewher e: No Locat ion: [facility] S ource: EHR Stage Technician elena: N Practi ce ID: 0001 Grabiel lable Time: 09:00:00 AM Beverley Dos Santostz jessica, [facility] 0 17:55:39 Normal pregnanc y in multigra geneva [id number] Completed 201509/02/2020 Encounte r for suprvsn of normal pregnanc y, third trimeste r;Practi ce ID: 0001 Beverley Sun jessica, [facility] 0 17:56:11 Gestatio n period, 34 weeks [id number] Completed 201509/02/2020 34 weeks gestatio n of pregnanc y;Practi ce ID: 0001 Beverley lopez, [facility] 0 17:55:42 Pregnanc y-induce d hyperten tonya Completed 201503/27/2021 Gestatio nal htn w/o signific ant proteinu che, third trimeste r;Record ed Elsewher e: No Locat ion: [facility] S ource: EHR Stage Technician elena: N Practi ce ID: 0001 Grabiel lable Time: 03:00:00 PM Beverley lopez, [facility] 1 16:36:34 Gestatio n period, 36 weeks [id number] Completed 201509/02/2020 36 weeks gestatio n of pregnanc y;Practi ce ID: 0001 Beverley lopez, [facility] 0 17:55:48 Single live from singleto n pregnanc y [id number] Completed 201509/03/2020 Single live ;Pr actice ID: 0001 Beverley lopez, [facility] 0 14:20:54 Gestatio n period, 37 weeks [id number] Completed 201509/02/2020 37 weeks gestatio n of pregnanc y;Practi ce ID: 0001 Beverley lopez, [facility] 0 17:55:50 Pregnanc y-induce d hyperten tonya Completed 201509/02/2020 Gestatio nal htn w/o signific ant proteinu che, unsp trimeste r;Practi ce ID: 0001 Beverley lopez, [facility] 0 17:57:29 Hyperten sive disorder [id number] Completed 201503/27/2021 Benign hyperten tonya;Rec orded Elsewher e: No Locat ion: [facility] S ource: EHR Stage Technician elena: N Practi ce ID: [id number] Grabiel lable Time: 10:30:00 AM Beverley Corinne lopez [facility] 5 19:18:30 Non-prot einuric hyperten tonya of pregnanc y [id number] Completed 201510/17/2020 Gestatnl htn without signific ant protein, comp the puerp;Pr actice ID: 0001 Beverley Sun jessica, [facility] 1 10:56:02 Lochia finding Completed 201510/17/2020 Encounte r for routine postpart um follow-u p;Pracxenia ce ID: 0001 Beverley Sun jessica, [facility] 1 10:55:[address] Concept Completed 201809/02/2020 Encntr for basket person exam (general ) (routine ) w/o abn findings ;Recorde d Elsewher e: No Locat ion: Sally [facility] S ource: EHR Stage Technician elena: N Practi ce ID: [id number] Grabiel lable Time: 10:30:00 AM Beverley Corinne lopez [facility] 0 17:56:45 Pregnanc y detectio n examinat ion Completed 201809/02/2020 Encounte r for pregnanc y test, result positive ;Practic e ID: 0001 Beverley Sun jessica, [facility] 0 17:56:17 Uterine size for dates discrepa ncy Completed 201810/17/2020 Uterine size-malia e discrepa ncy, first trimeste r;Mathieuti ce ID: 0001 Beverley Sun [facility], [facility] 1 10:56:17 Secondar y amenorrh ea [id number] Completed 201810/17/2020 Secondar y amenorrh ea;Recor ded Elsewher e: No Locat ion: Sally malik [facility] S ource: EHR Stage Technician elena: N Practi ce ID: 0001 Grabiel lable Time: 10:30:00 AM Beverley Corinne jessica, [facility] 1 10:56:05 Infectio n screenin g Completed 201809/02/2020 Encounte r for screenin g for oth infec/pa rastc diseases ;Recorde d Elsewher e: No Locat ion: [facility] N Practi ce ID: 0001 Grabiel lable Time: 10:30:00 AM Beverley Corinne jessica, [facility] 0 17:56:03 Syphilis test finding [id number] Completed 201809/03/2020 Encntr screen for infectio ns w sexl mode of transmis s;Record ed Elsewher e: No Locat ion: [facility]: N Practi ce ID: 0001 Grabiel lable Time: 10:30:00 AM Beverley Sun jessica, [facility] 0 14:20:58 Finding of viabilit y of pregnanc y [id number] Completed 201809/02/2020 Pregnanc y w inconclu sive viabilit y, unsp;Pra ctice ID: 0001 Beverley Sun [facility], [facility] 0 17:55:21 Finding of contents of cervix [id number] Completed 201809/02/2020 Weeks of gestatio n of pregnanc y not specifie d;Practi ce ID: 0001 Beverley Sun [facility], [facility] 0 17:55:14 Threaten ed miscarri age [id number] Completed 201810/17/2020 Threaten ed ;Recorde d Elsewher e: No Locat ion: [facility] S ource: EHR Stage Technician elena: N Practi ce ID: 0001 Grabiel lable Time: 12:30:00 PM Beverley Sun null, [facility] 1 10:56:15 Gestatio n period, 8 weeks [id number] Completed 201809/02/2020 8 weeks gestatio n of pregnanc y;Practi ce ID: 0001 Beverley lopez, [facility] 0 17:55:55 Rubella screenin g status [id number] Completed 201809/02/2020 Encounte r for antenata l screenin g, unspecif ied;Benitez rded Elsewher e: No Locat ion: Sally [facility] S ource: EHR Stage Technician elena: N Practi ce ID: 0001 Grabiel lable Time: 04:30:00 PM Beverley lopez, [facility] 0 17:56:34 Antenata l screenin g Completed 201809/02/2020 Encounte r for antenata l screenin g for nuchal transluc ency;Pra ctice ID: 0001 Beverley lopez, [facility] 0 17:57:11 Antenata l screenin g for malforma tion Completed 201809/02/2020 Encounte r for antenata l screenin g for malforma tions;Re corded Elsewher e: No [facility] S ource: EHR Stage Technician elena: N Practi ce ID: 0001 Grabiel lable Time: 08:15:00 AM Beverley lopez, [facility] 0 17:57:13 Gestatio n period, 29 weeks [id number] Completed 201809/02/2020 29 weeks gestatio n of pregnanc y;Record ed Elsewher e: No Locat ion: [facility] S ource: EHR Stage Technician elena: N Practi ce ID: 0001 Grabiel lable Time: 03:45:00 PM Beverley lopez [facility] 0 17:55:32 Clinical finding Completed 201810/17/2020 Tachycar rishi, unspecif ied;Benitez rded Elsewher e: No Locat ion: Liviabhaveshmario alberto malik [facility] S ource: EHR Stage Technician elena: N Practi ce ID: 0001 Grabiel lable Time: 11:15:00 AM Beverley lopez, [facility] 1 10:55:44 Clinical finding Completed 201809/02/2020 Obesity, unspecif ied;Benitez rded Elsewher e: No Locat ion: Liviabhaveshmario alberto malik [facility] S ource: EHR Stage Technician elena: N Practi ce ID: 0001 Grabiel lable Time: 03:00:00 PM Beverley lopez, [facility] 0 17:55:24 Finding of body mass index 191445108 Completed 201809/02/2020 Body mass index (BMI) 40.0-44. 9, adult;Re corded Elsewher e: No [facility] S ource: EHR Stage Technician elena: N Practi ce ID: 0001 Grabiel lable Time: 02:00:00 PM Beverley lopez, [facility] 0 17:56:59 Gestatio n period, 35 weeks [id number] Completed 201809/02/2020 35 weeks gestatio n of pregnanc y;Record ed Elsewher e: No Locat ion: Sally malik [facility] S ource: EHR Stage Technician elena: N Practi ce ID: 0001 Grabiel lable Time: 02:00:00 PM Beverley lopez, [facility] 0 17:55:44 Severe obesity complica ting pregnanc y [id number] Completed 201810/17/2020 Obesity complica ting pregnanc y, third trimeste r;Record ed Elsewher e: No Locat ion: Liviaella tracie [facility] S ource: EHR Stage Technician elena: N Practi ce ID: 0001 Grabiel lable Time: 03:00:00 PM Beverley lopez, [facility] 1 10:56:10 Gestatio n period, 38 weeks [id number] Completed 201809/02/2020 38 weeks gestatio n of pregnanc y;Record ed Elsewher e: No [facility] S ource: EHR Stage Technician elena: N Practi ce ID: 0001 Grabiel lable Time: 11:00:00 AM Beverley lopez, [facility] 0 17:55:53 Hyperten tonya in the obstetri c context Completed 201810/17/2020 Pre-exis ting essentia l htn comp pregnanc y, third trimeste r;Practi ce ID: 0001 Beverley lopez, [facility] 1 10:55:52 Attentio n deficit hyperact ivity disorder 988253220 Active 2024 stopped taking medicati on when found out Beverley lopez [facility] 5 19:38:30 Mixed anxiety and depressi ve disorder 293415940 Active 2024 Beverley lopez, [facility] 5 19:37:00 Hyperten sive disorder 38457516 Active 2024 Medina Whitaker CNM [address], [place], [address], [facility] 5 17:26:39 Headache 79508718 Active 2024 Beverley lopez, [facility] 5 19:37:14 Pregnanc y 28978670 Active 2024 Beverley lopez [facility] 19:36:35 Mixed anxiety and depressi ve disorder 477648770 Active 2024 Beverley lopez [facility] 19:37:00 Headache 50927397 Active 2024 Beverley lopez [facility] 19:37:14 Past pregnanc y history of gestatio nal hyperten tonya 634393316 Active 2024 2016 pregnanc y start bASA x 2 daily Medina Whitaker CNM [address], [place], [address], [facility] 17:26:14 Attentio n deficit hyperact ivity disorder 101026672 Active 2024 stopped taking medicati on when found out Beverley Sun [facility] 19:38:30 Obesity 865313309 Active 2024 antenata l testing @ [facility] Sonya Lester [facility] 5 20:55:07 Hyperten tonya AND/OR vomiting complica ting pregnanc y childbir th AND/OR puerperi um 804648158 Active 2024 Medina Whitaker CNM [address], [place], [address], [facility] 5 15:51:32 Notes:Encounter for antenata l screening of mother Recorded Elsewhere: No Location: [facility] Source: EHR Chronic: N Practice ID: 0001 Billable Time: 10:30:00 AM Encounter for screening of mother Practice ID: 0001 Encounter for screening of mother Recorded Elsewhere: No Location: [facility] Source: EHR Chronic: N Practice ID: 0001 Billable Time: 10:30:00 AM Encounter for screening of mother Practice ID: 0001 Problem Notes None recorded. Procedures Surgical History Date Name Laterality Status Provider Name and Address Organization Details Recorded Time Date of Last Pap Smear completed Beverley Sun [facility] 02/06/2025 08:37:03 1 extraction of wisdom tooth completed Beverley Sun [facility] 02/06/2025 19:33:27 Imaging Results None recorded. Procedure Notes None recorded. Medical Equipment None Reported. Allergies No known drug allergies Medications Name Sig Start Date Stop Date Status Note LastModified by Organization Details LastModified Time Prescript ion - Prior Authoriza tion Request 03/27 completed Not Available Not Available Not Available cyclobenz aprine 10 mg tablet TAKE 1 TABLET BY MOUTH THREE TIMES DAILY NEEDED FOR MUSCLE SPASM 01/07 completed Not Available Not Available Not Available prednison e 10 mg tablet TAKE 3 TABLETS BY MOUTH DAILY FOR 5 DAYS 01/07 completed Not Available Not Available Not Available ibuprofen 800 mg tablet 09/02 completed Not Available Not Available Not Available clomiphen e citrate 50 mg tablet take 1 tablet by oral route cycle days 5-9 06/28 completed Prescrib ed Elsewher e: No Locat ion: [facility] odify By: [email or web address] Bosch ter DateTime : 08/25/20 08:06:19 AM Not Available Not Available Not Available meloxicam 15 mg tablet TAKE 1 TABLET BY MOUTH DAILY ALTERNAT E WITH NAPROXEN 01/07 completed Not Available Not Available Not Available ondansetr on HCl 4 mg tablet 09/02 completed Not Available Not Available Not Available dextroamp hetamine- amphetami ne 10 mg tablet TAKE 1 TABLET BY MOUTH TWICE DAILY NEEDED AT LEAST 4 TO 6 HOURS APART 01/07 completed Not Available Not Available Not Available sertralin e 100 mg tablet TAKE 1 TABLET BY MOUTH EVERY DAY 02/25 completed Not Available Not Available Not Available phentermi ne 15 mg capsule TAKE 1 CAPSULE BY MOUTH DAILY 01/07 completed Not Available Not Available Not Available Diflucan 150 mg tablet Take 1 tablet by oral route once and again in 48 hours if needed 09/02 completed Prescrib ed Elsewher e: No Locat ion: [facility] M odify By: [email or web address] Bosch ter DateTime : 10/26/19 11:16:05 AM Not Available Not Available Not Available sumatript an 50 mg tablet Take 1 tablet by oral route as needed. 03/27 completed Not Available Not Available Not Available topiramat e 25 mg tablet TAKE 1 TABLET BY MOUTH DAILY 01/07 completed Not Available Not Available Not Available Zyrtec 10 mg tablet Take 1 tablet every day by oral route. active Not Available Not Available No t Available phentermi ne 37.5 mg tablet TAKE 1 TABLET BY MOUTH EVERY DAY 03/27 completed Not Available Not Available Not Available alprazola m 0.25 mg tablet TAKE 1 TABLET BY MOUTH THREE TIMES DAILY NEEDED FOR ANXIETY 02/25 completed Not Available Not Available Not Available dextroamp hetamine- amphetami ne ER 20 mg 24hr capsule,e xtend release TAKE 1 CAPSULE BY MOUTH DAILY 01/07 completed Not Available Not Available Not Available cephalexi n 500 mg capsule TAKE 1 CAPSULE BY MOUTH EVERY 12 HOURS FOR 7 DAYS 01/07 completed Not Available Not Available Not Available sertralin e 25 mg tablet TAKE 1 TABLET BY MOUTH EVERY DAY 03/27 completed Not Available Not Available Not Available dextroamp hetamine- amphetami ne ER 10 mg 24hr capsule,e xtend release TAKE 1 CAPSULE BY MOUTH DAILY 01/07 completed Not Available Not Available Not Available norethind anson acetate 1 mg-ethiny l estradiol 20 mcg tablet TAKE 1 TABLET DAILY 01/07 completed Not Available Not Available Not Available diclofena c sodium 50 mg tablet,de layed release TAKE 1 TABLET BY MOUTH TWICE DAILY 03/27 completed Not Available Not Available Not Available ergocalci ferol (vitamin D2) 1,250 mcg (50,000 unit) capsule TAKE 1 CAPSULE BY MOUTH EVERY WEEK 02/25 completed Not Available Not Available Not Available ibuprofen 600 mg tablet TAKE 1 TABLET BY MOUTH THREE TIMES DAILY 02/25 completed Not Available Not Available Not Available letrozole 2.5 mg tablet take 1 tablet by oral route cycle days 5-9 06/28 completed Prescrib camilo Fritz e: No Locat ion: [facility] odify By: [email or web address] z Encoun ter DateTime : 03/31/20 15 09:00:00 AM Not Available Not Available Not Available methylpre dnisolone 4 mg tablets in a dose pack FOLLOW PACKAGE DIRECTIO NS. DO NOT TAKE NSAIDS DURING STEROID PACK 02/25 completed Not Available Not Available Not Available labetalol 100 mg tablet take 1 tablet by oral route 2 times every day 07/23 completed Prescrib ed Lam e: No Locat ion: Sally malik [facility] odify By: [email or web address] Encounte r DateTime : 07/05/20 12:34:25 PM Not Available Not Available Not Available norethind anson (contrace ptive) 0.35 mg tablet TAKE ONE TABLET BY MOUTH ONCE DAILY. BC, RMA 09/02 completed Not Available Not Available Not Available sertralin e 50 mg tablet Take one tablet by mouth every day 11/05 completed Not Available Not Available Not Available phentermi ne 37.5 mg capsule TAKE 1 CAPSULE BY MOUTH DAILY MUST ADMINIST ER 30 MINUTES BEFORE OR 1 TO 2 HOURS AFTER BREAKFAS T 03/27 completed Not Available Not Available Not Available naproxen 500 mg tablet TAKE 1 TABLET BY MOUTH TWICE DAILY 03/27 completed Not Available Not Available Not Available escitalop igor 10 mg tablet (NEW DOSE) PATIENT IS TO TAKE 1 AND 1/2 TABLETS DAILY 10/17 completed Not Available Not Available Not Available escitalop igor 20 mg tablet TAKE 1 TABLET BY MOUTH EVERY DAY 10/17 completed Not Available Not Available Not Available bupropion HCl XL 300 mg 24 hr tablet, extended release TAKE 1 TABLET BY MOUTH EVERY DAY 03/27 completed Not Available Not Available Not Available bupropion HCl XL 150 mg 24 hr tablet, extended release TAKE 1 TABLET BY MOUTH EVERY MORNING 03/27 completed Not Available Not Available Not Available nitrofura ntoin monohydra te/macroc rystals 100 mg capsule TAKE 1 CAPSULE BY MOUTH EVERY 12 HOURS FOR 10 DAYS 01/07 completed Not Available Not Available Not Available iron active Not Available Not Availa ble Not Available Stool Softener active Not Available Not Available Not Available Vitamin D3 active Not Available Not Available Not Available active Not Available Not Avai lable Not Available C 500 Timed Released 02/06 completed Not Available Not Available Not Available Iodides Tincture topical 08/13 /2025 completed Not Available Not Available Not Available Naprelan CR 750 mg tab,exten ded release 24 hr mphase 03/27 completed Not Available Not Available Not Available OB Complete One 40 mg-10 mg-1 mg-300 mg capsule Take One Capsule By mouth Daily 2024 active Not Available Not Available Not Avai lable Fish Oil 1,000 mg (120 mg-180 mg) capsule Take 1 capsule every day by oral route. 2024 active Not Available Not Available Not Avai lable omega3 300 mg-dha,ep a 250 mg-other omega 3s-fish oil 1,000 mg capsule TAKE 1 CAPSULE BY MOUTH EVERY DAY active Not Available Not Available No t Available Slynd 4 mg (28) tablet TAKE 1 TABLET DAILY 02/25 completed Not Available Not Available Not Available Zepbound 10 mg/0.5 mL subcutane ous pen injector ADMINIST ER 10 MG UNDER THE SKIN WEEKLY 01/07 completed Not Available Not Available Not Available Zepbound 5 mg/0.5 mL subcutane ous pen injector ADMINIST ER 5 MG UNDER THE SKIN WEEKLY 01/07 completed Not Available Not Available Not Available Zepbound 2.5 mg/0.5 mL subcutane ous pen injector ADMINIST ER 2.5 MG UNDER THE SKIN WEEKLY FOR 4 WEEKS 01/07 completed Not Available Not Available Not Available Zepbound 7.5 mg/0.5 mL subcutane ous pen injector ADMINIST ER 7.5 MG UNDER THE SKIN WEEKLY 01/07 completed Not Available Not Available Not Available Vitals Date Recorded Body weight Systolic And Diastolic Provider Name and Address Organization Details Last Updated DateTime 07/10/2025 727391.5331 g 128/85 mm[Hg] Barbie Coronado [facility] 07/10/2025 10:56:59 Date Recorded Body height Body mass index (BMI) Body weight Systolic And Diastolic Provider Name and Address Organization Details Last Updated DateTime 07/10/2025 167.64 cm 50 kg/m2 906495.63 g 128/85 mm[Hg] Zita Westfall [facility] 07/10/2025 16:50:05 Social History Question Answer Notes LastModified by Organizat ion Details LastModified Time Tobacco Smoking Status Never Smoker Beverley Sun [facility] 03/21/2020 13:16:23 Do You Have An Advance Directive? No Information n ot available 01/07/2025 If You Are , What Was Your Level Of Alcohol Consumption Prior To ? Occasional [email or web address] Information not available 10/17/2020 Are You Blind Or Do You Have Difficulty Seeing? No [email or web address] Information n ot available 03/27/2021 What Is Your Level Of Caffeine Consumption? Occasional [email or web address] Information not available 10/17/2020 In The 14 Days Before Symptom Onset, Have You Had Close Contact With A Laboratory-confirm ed COVID-19 While That Case Was Ill? No [email or web address] Information n ot available 03/27/2021 In The 14 Days Before Symptom Onset, Have You Had Close Contact With A Person Who Is Under Investigation For COVID-19 While That Person Was Ill? No [email or web address] Information not available 03/27/2021 Have You Been To An Area Known To Be High Risk For COVID-19? No [email or web address] Information not available 03/27/2021 Are You Deaf Or Do You Have Serious Difficulty Hearing? No [email or web address] Information not available 03/27/2021 What Type Of Diet Are You Following? REGULAR [email or web address] Information n ot available 03/27/2021 What Is The Highest Grade Or Level Of School You Have Completed Or The Highest Degree You Have Received? [id number] Information not available 01/07/2025 What Was The Date Of Your Most Recent Tobacco Screening? 02/06/2025 [email or web address] Information not available 02/06/2025 Have You Ever Been Counseled For Unhealthy Alcohol Use? No [email or web address] Information not available 10/17/2020 Do You Use Protection During Sex? No Information not available 01/07/2025 Do You Use Your Seat Belt Or Car Seat Routinely? Yes [email or web address] Information not available 03/27/2021 Do You Have Smoke And Carbon Monoxide Detectors In Your Home? Yes [email or web address] Information not available 03/27/2021 How Much Tobacco Do You Smoke? No [email or web address] Information not available 03/21/2020 Do You Use Sunscreen Routinely? Yes [email or web address] Information not available 03/27/2021 Has Tobacco Cessation Counseling Been Provided? No Information not available 10/17/2020 Have You Used IV Drugs? No Information not available 01/07/2025 Do You Have Difficulty Walking Or Climbing Stairs? No [email or web address] Information not available 02/06/2025 Sex: Unknown Functional Status Question Answer Note LastModified by Organizat ion Details LastModified Time Do you use any illicit or recreational drugs? No [email or web address] Information not available 10/17/2020 Do you or have you ever used any other forms of tobacco or nicotine? No [email or web address] Information not available 10/17/2020 What is your level of alcohol consumption? None [email or web address] Information not available 02/06/2025 Do you or have you ever used smokeless tobacco? Never used smokeless tobacco [email or web address] Information not available 03/21/2020 Are you able to walk independently without assistance or assistive devices? YESWOREST [email or web address] Information not available 03/27/2021 Are you able to care for yourself independently? Yes Information not available 02/06/2025 Do you have difficulty dressing, bathing, grooming, or toileting? No [email or web address] Information not available 02/06/2025 Do you or have you ever used e-cigarettes or vape? Never used electronic cigarettes [email or web address] Information not available 03/21/2020 What is your exercise level? Occasional [email or web address] Information not available 03/21/2020 Mental Status Question Answer Note LastModified by Organization D etails LastModified Time Do you feel stressed (tense, restless, nervous, or anxious, or unable to sleep at night)? [id number] [email or web address] Information not available 03/27/2021 Family History Relationship Description Onset Age of this Age Resolved Age Notes LastModified by Organization Details LastModified Time Mother Disorder of thyroid gland [email or web address] Not available 03/21 13:15:49 Father Diabetes mellitus [email or web address] Not available 03/21 13:16:06 Maternal Grandfather Diabetes mellitus [email or web address] Not available 03/21 13:16:06 Maternal Grandmother Malignant neoplasm of lung [email or web address] Not available 12/13 11:16:48 Medical History Condition Response Allergies (Food, seasonal, environmental ) Y Other N Drug/Latex Allergies/Reactions N Blood Transfusion N Breast Cancer N Dermatologic Disorders N Lung Disease N Defects or Inherited Disease N Breast Problem N Gestational Diabetes N Hematologic disorders N Anesthesia Complications N History of STI Y Deep Vein Thrombosis N Polycystic ovary syndrome N Anxiety Disorder Y Autoimmune disease N Arthritis N Polyps N Infertility N Acid Reflux (GERD) N History of abnormal pap N Cancer N Varicosities N Stroke N Neurologic/Epilepsy Y Endometriosis N High Cholesterol N Fibromyalgia N Headaches Y Kidney Disease N Heart Problems N Thyroid Problems N Kidney or Bladder Problems N GI Problems N Eating Disorder N Anemia N Art (IVF or FET) N Psychiatric Illness Y Ovarian Cancer N Diabetes N Pulmonary (TB, Asthma) N Hepatitis/Liver Disease N Eczema N Urinary Tract Infection N Abuse/Domestic Violence N Asthma N Trauma/Violence N Depression/ depression Y Heart Disease N Pre-Eclampsia N Hypertension Y Osteoporosis N Thrombophilias N Gynecological History Statement/Question Response Abnormal Pap N Date of Last Mammogram Date of LMP Was last menstrual period normal Y STIs/STDs Y HPV Vaccine N Current Control Method Are cycles usually normal Y Date of Last Colonoscopy Sexually Active? Y Menses Monthly N Date of DEXA bone scan Age of first menstrual cycle 12 Date of Last Pap Smear 03/27/2021 Sexual Problems? N Desired Control Method LMP Unknown Obstetrics History GPAL:G 3 P 2 0 0 2 Type Value Full Term 2 Living 2 Total 3 Past Encounters Encounter ID Performer Location Encounter Start Date Encounter Closed Date Diagnosis/Indication Diagnosis SNOMED-CT Code Diagnosis ICD10 Code Diagnosis IMO Codes Diagnosis Note [id number] Lobito Salinas MD [facility] [address] [address] 06/12/2025 11:17:33 06/12/2025 12:05:04 Large for gestation age fetus 248275428 O36.60X0 Z3A.31 [id number] Medina Whitaker CNM [facility] [address] [address] 06/12/2025 11:18:32 06/12/2025 14:07:15 Gestation period, 31 weeks 65111573 Z3A.31 7477496 [id number] Medina Whitaker [facility] [address],[place] [address] 06/26/2025 14:50:38 06/26/2025 15:53:19 Gestation period, 33 weeks 66123991 Z3A.33 [id number] Medina Whitaker [facility] [address],[place] [address] 06/26/2025 15:32:15 06/26/2025 17:47:00 Hypertension AND/OR vomiting complicating childbirth AND/OR puerperium 899504773 O13.3 5362917 [id number] Lobito Salinas MD [facility] [address] [place] [address] 07/03/2025 09:24:44 07/03/2025 10:27:55 -induced hypertension 29050003 O13.3 Z3A.34 [id number] Medina Whitaker [place] [address] [place] [address] 07/03/2025 09:24:58 07/03/2025 16:17:39 Maternal obesity complicating , childbirth and the puerperium, antepartum 5097041131 07 O99.210 [id number] rf phentermin e, ok for one more refill then must take break [id number] [facility] [address] [place] [address] 07/03/2025 09:25:15 07/03/2025 11:45:20 Gestation period, 34 weeks 39325073 Z3A.34 [id number] Lobito Salinas MD [facility] [address] [place] [address] 07/10/2025 09:26:17 07/10/2025 10:22:03 Chronic hypertension complicating AND/OR reason for care during 40540343 O10.919 O36.60X0 O99.210 Z3A.35 [id number] Medina Whitaker CNM [facility] [address] [address] 07/10/2025 09:27:40 07/10/2025 17:20:31 Maternal obesity complicating , childbirth and the puerperium, antepartum 8472224967 07 O99.210 [id number] rf phentermin e, ok for one more refill then must take break [id number] Medina Whitaker CNM [facility] [address] [address] 07/10/2025 09:27:58 07/10/2025 12:08:57 Gestation period, 35 weeks 04723364 Z3A.35 [id number] Health Concerns Section Related Observation LastModified by Organization Detai ls LastModified Time None Recorded Concern Status LastModified by Organization Details LastModified Time None Recorded Payers Encounter Date Sequence Insurance Name Policy Number Policy [place] Covered Member ID [place] Member ID Guarantor Name 07/10/2025 1 [facility] [id number] Apolinar Rivers [id number] Whit Rivers Notes Date Note Type Note Provider Name and Address Organization Details Recorded Time 07/10/2025 text/html Generic HPI TemplateReported by Patient Medina Whitaker CNM [address], [place], [address], [facility] 07/10/2025 12:07:27 OBGyn Episode Ob Episode Information Episode Created Date Number of Fetuses Patient Bloodtype Patient rh Status Prepregnancy Weight lbs Domestic Partner Domestic Partner Phone Father Name Infrastructure Tech Status 02/07/20 25 1 O Positive 291 Apolinar Rivers OPEN Fetus Data First Name Last Name Admitted to NICU Weight (g) Sex Living Outcome Pediatric Complications Fetus ID Race Codes Race Delivery Type [id number] Problems Problem Notes Problem Name Start Date End Date Resolution Snomed Code Not e Attention deficit hyperactivity disorder 02/06/2025 [id number] stopped taking medication when found out Past history of gestational hypertension 02/06/2025 [id number] 2016 pregnancys tart bASA x 2 daily Obesity 02/07/2025 [id number] testing @ 34wks Headache 02/06/2025 [id number] Mixed anxiety and depressive disorder 02/06/2025 [id number] Hypertension AND/OR vomiting complicating childbirth AND/OR puerperium 06/26/2025 [id number] Alfa Calculation Initial Alfa Date Initial Exam Date Initial Exam Provider Initial Ultrasound Date Last Menstrual Period Date Ultra Sound Weeks Gestation 08/14/2025 01/09/2025 [email or web address] 12/25/2024 6 Eighteen To Twenty Week Alfa Update Ultra Sound Date Fundal Height At Umbil Quickening Date Ultra Sound Latest Weeks Gestation Final Alfa Confirmed By Final Alfa Confirmed Date Final Alfa Date Ultra Sound Latest Days Gestation 0 08/14/20 25 0 Pre-alonso Flowsheet Flowsheet Date 02/06/2025 Bunn Score Blood Edema Fundus Height Fundus Units Glucose Ketones Leukocytes Nitrite Labor Signs Protein Cervic Dilation Cervic Effacement Cervic Station neg none none trace Type Weight in lbs Pre/Post Dialysis Refused Weight 289.778439229818 BP Diastolic BP Location Tested BP Systolic BP Type 84 130 Fetus Heart Rate Present Fetus Movement A Yes Comments Patient states that is havin g some nausea. reviewed us wnl, reviewed hx of vaginal deliveries with HTN, plan bASA x 2, testing, education and precautions, begin routine care Flowsheet Date 03/06/2025 Bunn Score Blood Edema Fundus Height Fundus Units Glucose Ketones Leukocytes Nitrite Labor Signs Protein Cervic Dilation Cervic Effacement Cervic Station Type Weight in lbs Pre/Post Dialysis Refused Weight 294.803738175336 BP Diastolic BP Location Tested BP Systolic BP Type 79 L arm 127 sitting Fetus Heart Rate Present A 145 Fetus Movement Comments +FM, doing well, precautions and education f/u anatomy in 3 weeks Flowsheet Date 03/27/2025 Bunn Score Blood Edema Fundus Height Fundus Units Glucose Ketones Leukocytes Nitrite Labor Signs Protein Cervic Dilation Cervic Effacement Cervic Station Type Weight in lbs Pre/Post Dialysis Refused BP Diastolic BP Location Tested BP Systolic BP Type Fetus Heart Rate Present Fetus Movement Comments Flowsheet Date 03/27/2025 Bunn Score Blood Edema Fundus Height Fundus Units Glucose Ketones Leukocytes Nitrite Labor Signs Protein Cervic Dilation Cervic Effacement Cervic Station Type Weight in lbs Pre/Post Dialysis Refused 297.529548800837 BP Diastolic BP Location Tested BP Systolic BP Type 79 L arm 116 sitting Fetus Heart Rate Present Fetus Movement A Yes Comments anatomy incomplete, efw 92%, precautions and education f/u 4 weeks Flowsheet Date 04/17/2025 Bunn Score Blood Edema Fundus Height Fundus Units Glucose Ketones Leukocytes Nitrite Labor Signs Protein Cervic Dilation Cervic Effacement Cervic Station Type Weight in lbs Pre/Post Dialysis Refused BP Diastolic BP Location Tested BP Systolic BP Type Fetus Heart Rate Present Fetus Movement Comments pt here today for decreased movement, fluid appears wnl, baby is now breach FHR 155, very active and pt now feels movement and is reassured f/u scheduled Flowsheet Date 04/24/2025 Bunn Score Blood Edema Fundus Height Fundus Units Glucose Ketones Leukocytes Nitrite Labor Signs Protein Cervic Dilation Cervic Effacement Cervic Station Type Weight in lbs Pre/Post Dialysis Refused BP Diastolic BP Location Tested BP Systolic BP Type Fetus Heart Rate Present Fetus Movement Comments Flowsheet Date 04/24/2025 Bunn Score Blood Edema Fundus Height Fundus Units Glucose Ketones Leukocytes Nitrite Labor Signs Protein Cervic Dilation Cervic Effacement Cervic Station Type Weight in lbs Pre/Post Dialysis Refused 302.468751456364 BP Diastolic BP Location Tested BP Systolic BP Type 84 L arm 131 sitting Fetus Heart Rate Present Fetus Movement A Yes Comments LGA at efw 95%, discussed IO L desired by pt, would like fish oil rx to pharmacy education and precautions anatomy complete f/u 4 weeks with gct Flowsheet Date 05/15/2025 Bunn Score Blood Edema Fundus Height Fundus Units Glucose Ketones Leukocytes Nitrite Labor Signs Protein Cervic Dilation Cervic Effacement Cervic Station Type Weight in lbs Pre/Post Dialysis Refused Weight 305.020403585512 BP Diastolic BP Location Tested BP Systolic BP Type 80 L arm 150 sitting Fetus Heart Rate Present A 142 Present Fetus Movement A Yes Comments no sxs check labs with gct t thony, +FM, precautions and education f/u 2 week Flowsheet Date 05/29/2025 Bunn Score Blood Edema Fundus Height Fundus Units Glucose Ketones Leukocytes Nitrite Labor Signs Protein Cervic Dilation Cervic Effacement Cervic Station Type Weight in lbs Pre/Post Dialysis Refused Weight 306.015042446949 BP Diastolic BP Location Tested BP Systolic BP Type 85 L arm 138 sitting Fetus Heart Rate Present A 146 Present Fetus Movement A Yes Comments +FM doing well, denies any c omplaints f/u 2 weeks with growth LGA f/u 2 weeks Flowsheet Date 06/12/2025 Bunn Score Blood Edema Fundus Height Fundus Units Glucose Ketones Leukocytes Nitrite Labor Signs Protein Cervic Dilation Cervic Effacement Cervic Station Type Weight in lbs Pre/Post Dialysis Refused BP Diastolic BP Location Tested BP Systolic BP Type Fetus Heart Rate Present Fetus Movement Comments Flowsheet Date 06/12/2025 Bunn Score Blood Edema Fundus Height Fundus Units Glucose Ketones Leukocytes Nitrite Labor Signs Protein Cervic Dilation Cervic Effacement Cervic Station Type Weight in lbs Pre/Post Dialysis Refused Weight 305.490994665954 BP Diastolic BP Location Tested BP Systolic BP Type 86 L arm 124 sitting Fetus Heart Rate Present Fetus Movement A Yes Comments +FM, precautions and educati on efw 99%, vtx, lga rpt in 4 weeks, declines rsv Flowsheet Date 06/26/2025 Bunn Score Blood Edema Fundus Height Fundus Units Glucose Ketones Leukocytes Nitrite Labor Signs Protein Cervic Dilation Cervic Effacement Cervic Station Type Weight in lbs Pre/Post Dialysis Refused Weight 307.301744722909 BP Diastolic BP Location Tested BP Systolic BP Type 90 140 Fetus Heart Rate Present Fetus Movement A Yes Comments discussed elevated bp start weekly bpp, denies any sxs, plan IOL nov 12, precautions and education f/u one week Flowsheet Date 06/26/2025 Bunn Score Blood Edema Fundus Height Fundus Units Glucose Ketones Leukocytes Nitrite Labor Signs Protein Cervic Dilation Cervic Effacement Cervic Station Type Weight in lbs Pre/Post Dialysis Refused BP Diastolic BP Location Tested BP Systolic BP Type Fetus Heart Rate Present Fetus Movement Comments Flowsheet Date 07/03/2025 Bunn Score Blood Edema Fundus Height Fundus Units Glucose Ketones Leukocytes Nitrite Labor Signs Protein Cervic Dilation Cervic Effacement Cervic Station Type Weight in lbs Pre/Post Dialysis Refused BP Diastolic BP Location Tested BP Systolic BP Type Fetus Heart Rate Present Fetus Movement Comments Flowsheet Date 07/03/2025 Bunn Score Blood Edema Fundus Height Fundus Units Glucose Ketones Leukocytes Nitrite Labor Signs Protein Cervic Dilation Cervic Effacement Cervic Station Type Weight in lbs Pre/Post Dialysis Refused 308.846587189637 BP Diastolic BP Location Tested BP Systolic BP Type 81 L arm 132 sitting Fetus Heart Rate Present Fetus Movement A Yes Comments Flowsheet Date 07/03/2025 Bunn Score Blood Edema Fundus Height Fundus Units Glucose Ketones Leukocytes Nitrite Labor Signs Protein Cervic Dilation Cervic Effacement Cervic Station Type Weight in lbs Pre/Post Dialysis Refused 308.126325918574 BP Diastolic BP Location Tested BP Systolic BP Type 81 L arm 132 sitting Fetus Heart Rate Present Fetus Movement Comments +FM bpp 8/8, vertex, denies sxs, diagnosed GHTN, precautions and education , f/u gbs next week Flowsheet Date 07/10/2025 Bunn Score Blood Edema Fundus Height Fundus Units Glucose Ketones Leukocytes Nitrite Labor Signs Protein Cervic Dilation Cervic Effacement Cervic Station Type Weight in lbs Pre/Post Dialysis Refused BP Diastolic BP Location Tested BP Systolic BP Type Fetus Heart Rate Present Fetus Movement Comments Flowsheet Date 07/10/2025 Bunn Score Blood Edema Fundus Height Fundus Units Glucose Ketones Leukocytes Nitrite Labor Signs Protein Cervic Dilation Cervic Effacement Cervic Station Type Weight in lbs Pre/Post Dialysis Refused Weight 310.239302700177 BP Diastolic BP Location Tested BP Systolic BP Type 85 L arm 128 sitting Fetus Heart Rate Present Fetus Movement A Yes Comments Flowsheet Date 07/10/2025 Bunn Score Blood Edema Fundus Height Fundus Units Glucose Ketones Leukocytes Nitrite Labor Signs Protein Cervic Dilation Cervic Effacement Cervic Station Type Weight in lbs Pre/Post Dialysis Refused 310.237330769033 BP Diastolic BP Location Tested BP Systolic BP Type 85 L arm 128 sitting Fetus Heart Rate Present Fetus Movement A Yes Comments +FM, GHTN, efw 99% will disc uss c/s vs vag del next week, pt not currently wanting bpp 8/8 f/u one week Flowsheet Date 07/17/2025 Bunn Score Blood Edema Fundus Height Fundus Units Glucose Ketones Leukocytes Nitrite Labor Signs Protein Cervic Dilation Cervic Effacement Cervic Station Type Weight in lbs Pre/Post Dialysis Refused BP Diastolic BP Location Tested BP Systolic BP Type Fetus Heart Rate Present Fetus Movement Comments Flowsheet Date 07/17/2025 Bunn Score Blood Edema Fundus Height Fundus Units Glucose Ketones Leukocytes Nitrite Labor Signs Protein Cervic Dilation Cervic Effacement Cervic Station Type Weight in lbs Pre/Post Dialysis Refused BP Diastolic BP Location Tested BP Systolic BP Type Fetus Heart Rate Present Fetus Movement Comments Flowsheet Date 07/17/2025 Bunn Score Blood Edema Fundus Height Fundus Units Glucose Ketones Leukocytes Nitrite Labor Signs Protein Cervic Dilation Cervic Effacement Cervic Station Type Weight in lbs Pre/Post Dialysis Refused 311.746670243463 BP Diastolic BP Location Tested BP Systolic BP Type 78 L arm 130 sitting Fetus Heart Rate Present Fetus Movement A Yes Comments bpp 04/21 doing well, denies cardona visual changes, discussed dr bautista rec for delivery due to LGA, discuss risk of , permanent injury. pt declines for now, +FM today percautions and education Flowsheet Date 07/24/2025 Bunn Score Blood Edema Fundus Height Fundus Units Glucose Ketones Leukocytes Nitrite Labor Signs Protein Cervic Dilation Cervic Effacement Cervic Station Type Weight in lbs Pre/Post Dialysis Refused BP Diastolic BP Location Tested BP Systolic BP Type Fetus Heart Rate Present Fetus Movement Comments Flowsheet Date 07/24/2025 Bunn Score Blood Edema Fundus Height Fundus Units Glucose Ketones Leukocytes Nitrite Labor Signs Protein Cervic Dilation Cervic Effacement Cervic Station Type Weight in lbs Pre/Post Dialysis Refused Weight 312.650514027776 BP Diastolic BP Location Tested BP Systolic BP Type 84 L arm 131 sitting Fetus Heart Rate Present Fetus Movement A Yes Comments Flowsheet Date 07/24/2025 Bunn Score Blood Edema Fundus Height Fundus Units Glucose Ketones Leukocytes Nitrite Labor Signs Protein Cervic Dilation Cervic Effacement Cervic Station 1cm 50% -2 Type Weight in lbs Pre/Post Dialysis Refused Weight 312.719809246311 BP Diastolic BP Location Tested BP Systolic BP Type 84 L arm 131 sitting Fetus Heart Rate Present Fetus Movement Comments bpp 06/21 +FM, IOL planned or tuesday reviewed rec for , education and precautions f/u as scheduled Menstrual History Last Menstrual Date Menses Monthly On Bcp Conception Prior Menses Frequency Hcg Plus Date Menarche Onset Age Delivery Information Delivery Date Delivery Type Labor Anesthesia Weeks Gestation Incision Type Labor Labor Length Hrs Delivered By Post Complications Tubal Sterilization Discharge Date Comments Discharge Information Feeding Method Contraceptive Method Maternal HG B and HCT Levels
--- OUTSIDE RECORDS SUMMARY | 2025-07-26 05:55 | XMS_ITS | Continuity of Care Document ---
Author Organization [facility] Address [address] [place] [address] Care Team Providers Care Box Inspector Name Role Phone HA MORTON Primary Care Provider [phone] Assessment Encounter Date Assessment Date Assessment LastModified by Organization Details LastModified Time 06/26/2025 06/26/2025 Patient is 33___weeks . Discussed plan. Not available 06/26/2025 15:50:58 Plan of Treatment Reminders Order Date Submit Date Provider Last Modified By Organization Details Last Modified Time Details Appointments INDUCTI ON 2024 06:00A M Medina Whitaker CNM Not available Not [...] available OB ROUTINE 2024 09:30A M Medina Whitaker, JENNIFER Not available Not available Not available Lab None recorde d. Referral None recorde d. Procedures None recorde d. Surgeries None recorde d. Imaging None recorde d. Medication Orders None recorde d. Patient TargetsNo targets recorded. Patient InstructionsNo instructions recorded. Reason for Referral None Reported. Results Created Date Observation Date Name Description Value Unit Range Abnormal Flag Note LastModifiedBy Organization Detail LastModifiedTime 02/15/20 25 02/14/2025 [UNIT Y] ANEUP LOIDY NIPT fraction 3.9% normal Not Available [facility] [address], [place], [address], 02/14/2025 01:55:32 02/15/20 25 02/14/2025 [UNIT Y] ANEUP LOIDY NIPT 22Q11.2 microdeletio n LOW RISK <1 in 10,000 normal Not Available [facility] [address], [place], [address], 02/14/2025 01:55:32 02/15/20 25 02/14/2025 [UNIT Y] ANEUP LOIDY NIPT sex chromosome aneuploidy NOT DETECT ED normal Not Available [facility] [address], [place], [address], 02/14/2025 01:55:32 02/15/20 25 02/14/2025 [UNIT Y] ANEUP LOIDY NIPT monosomy X LOW RISK <1 in 10,000 normal Not Available [facility] [address], [place], [address], 02/14/2025 01:55:32 02/15/20 25 02/14/2025 [UNIT Y] ANEUP LOIDY NIPT trisomy 13 LOW RISK <1 in 10,000 normal Not Available [facility] [address], [place], [address], 02/14/2025 01:55:32 02/15/20 25 02/14/2025 [UNIT Y] ANEUP LOIDY NIPT trisomy 18 LOW RISK <1 in 10,000 normal Not Available [facility] [address], [place], [address], 02/14/2025 01:55:32 02/15/20 25 02/14/2025 [UNIT Y] ANEUP LOIDY NIPT trisomy 21 LOW RISK <1 in 10,000 normal Not Available [facility] [address], [place], [address], 02/14/2025 01:55:32 02/15/20 25 02/14/2025 [UNIT Y] ANEUP LOIDY NIPT sex MALE normal Not Available [facility] [address], [place], [address], 02/14/2025 01:55:32 02/15/20 25 02/14/2025 [UNIT Y] ANEUP LOIDY NIPT gestation SINGLE TON normal Not Available [facility] [address], [place], [address], 02/14/2025 01:55:32 02/15/20 25 02/14/2025 [UNIT Y] ANEUP LOIDY NIPT for detailed report, see pdf See PDF normal Not Available [facility] [address], [place], [address], 02/14/2025 01:55:32 02/18/20 25 02/17/2025 [UNIT Y] OTTO Islas sickle cell disease/beta -thalassemia /hemoglobino pathies carrier screen NEGATI VE normal Not Available [facility] [address], [place], [address], 02/17/2025 10:24:39 02/18/20 25 02/17/2025 [UNIT Y] OTTO Islas alpha-thalas semia carrier screen NEGATI VE normal Not Available [facility] [address], [place], [address], 02/17/2025 10:24:39 02/18/20 25 02/17/2025 [UNIT Y] OTTO LANGFORD Janel cystic fibrosis carrier screen NEGATI VE normal Not Available [facility] [address], [place], [address], 02/17/2025 10:24:39 02/18/20 25 02/17/2025 [UNIT Y] OTTO LANGFORD Janel spinal muscular atrophy carrier screen NEGATI VE 2 SMN1 copies , SNP not presen t normal Not Available [facility] [address], [place], [address], 02/17/2025 10:24:39 02/18/20 25 02/17/2025 [UNIT Y] OTTO LANGFORD Janel for detailed report, see pdf See PDF normal Not Available [facility] [address], [place], [address], 02/17/2025 10:24:39 02/07/20 25 02/06/2025 CBC W/DIF F WBC 12.0 10'3/ uL 3.5-10 .5 high Not Available [facility] (Lab) [address], [place], [address], 02/07/2025 13:12:55 02/07/20 25 02/06/2025 CBC W/DIF F RBC 4.52 10'6/ uL (based on docume nted legal sex) 3.80-5 .20 Not Available [facility] (Lab) [address] , [place], [address], 02/07/2025 13:12:55 02/07/20 25 02/06/2025 CBC W/DIF F HGB 12.4 g/dL (based on docume nted legal sex) 11.6-1 5.4 Not Available [facility] (Lab) [address], [place], [address], 02/07/2025 13:12:55 02/07/20 25 02/06/2025 CBC W/DIF F HCT 38.9 % (based on docume nted legal sex) 34.0-4 5.0 Not Available [facility] (Lab) [address], [place], [address], 02/07/2025 13:12:55 02/07/20 25 02/06/2025 CBC W/DIF F MCV 86.1 fL 80.0-9 9.0 Not Available [facility] (Lab) [address], [place], [address], 02/07/2025 13:12:55 02/07/20 25 02/06/2025 CBC W/DIF F MCH 27.4 pg 27.0-3 4.0 Not Available [facility] (Lab) [address], [place], [address], 02/07/2025 13:12:55 02/07/20 25 02/06/2025 CBC W/DIF F MCHC 31.9 g/dL 32.0-3 5.5 low Not Available [facility] (Lab) [address], [place], [address], 02/07/2025 13:12:55 02/07/20 25 02/06/2025 CBC W/DIF F RDW 12.9 % 11.0-1 5.0 Not Available [facility] (Lab) [address], [place], [address], 02/07/2025 13:12:55 02/07/20 25 02/06/2025 CBC W/DIF F plt 281 10'3/ uL 150-40 0 Not Available [facility] (Lab) [address], [place], [address], 02/07/2025 13:12:55 02/07/20 25 02/06/2025 CBC W/DIF F MPV 11.0 fL 8.8-12 .1 Not Available [facility] (Lab) [address], [place], [address], 02/07/2025 13:12:55 02/07/20 25 02/06/2025 CBC W/DIF F NRBC's 0.0 % 0.0 Not Available [facility] (Lab) [address], [place], [address], 02/07/2025 13:12:55 02/07/20 25 02/06/2025 CBC W/DIF F absolute NRBCs 0.0 10'3/ uL no refere nce range establ ished Not Available [facility] (Lab) [address], [place], [address], 02/07/2025 13:12:55 02/07/20 25 02/06/2025 CBC W/DIF F neutrophils 72.5 % 34.0-7 3.0 Not Available [facility] (Lab) [address], [place], [address], 02/07/2025 13:12:55 02/07/20 25 02/06/2025 CBC W/DIF F lymphocytes 20.4 % 15.0-5 0.0 Not Available [facility] (Lab) [address], [place], [address], 02/07/2025 13:12:55 02/07/20 25 02/06/2025 CBC W/DIF F monocytes 5.9 % 1.0-15 .0 Not Available [facility] (Lab) [address], [place], [address], 02/07/2025 13:12:55 02/07/20 25 02/06/2025 CBC W/DIF F eosinophils 0.6 % 0.0-8. 0 Not Available [facility] (Lab) [address] [place], [address], 02/07/2025 13:12:55 02/07/20 25 02/06/2025 CBC W/DIF F basophils 0.3 % 0.0-2. 0 Not Available [facility] (Lab) [address], [place], [address], 02/07/2025 13:12:55 02/07/20 25 02/06/2025 CBC W/DIF F immature granulocytes 0.3 % no define d refere nce range Immat ure Granu locyt es (IG) repre sents autom ated enume ratio n of Metam yeloc ytes, Myelo cytes and Promy elocy shlomo when IG is < 5%. Blast s are not inclu ded in IG and repor ruy separ ately if prese nt. Not Available [facility] (Lab) [address], [place], [address], 02/07/2025 13:12:55 02/07/20 25 02/06/2025 CBC W/DIF F absolute neutrophils 8.7 10'3/ uL 1.5-8. 0 high Not Available [facility] (Lab) [address] , [place], [address], 02/07/2025 13:12:55 02/07/20 25 02/06/2025 CBC W/DIF F absolute lymphocytes 2.4 10'3/ uL 1.0-4. 0 Not Available [facility] (Lab) [address], [place], [address], 02/07/2025 13:12:55 02/07/20 25 02/06/2025 CBC W/DIF F absolute monocytes 0.7 10'3/ uL 0.2-1. 0 Not Available [facility] (Lab) [address], [place], [address], 02/07/2025 13:12:55 02/07/20 25 02/06/2025 CBC W/DIF F absolute eosinophils 0.1 10'3/ uL 0.0-0. 6 Not Available [facility] (Lab) [address], [place], [address], 02/07/2025 13:12:55 02/07/20 25 02/06/2025 CBC W/DIF F absolute basophils 0.0 10'3/ uL 0.0-0. 3 Not Available [facility] (Lab) [address], [place], [address], 02/07/2025 13:12:55 02/07/2002/06/2025 CBC W/DIF F absolute [...] of the indiv idual patie nt: https ://la bhand book. nm.or g/gen derx Not Available [facility] (Lab) [address], [place], [address], 02/07/2025 13:12:55 02/07/2002/06/2025 HEPAT ITIS B SURFA CE ANTIG EN hepatitis B surface antigen Non-re active non-re active This assay was perfo rmed using [employer] ratio n reage nts and test kits. Value s obtai dexter with other assay metho ds or kits canno t be used inter lopez eably . Not Available [facility] (Lab) [address], [place], [address], 02/07/2025 13:12:55 02/07/2002/06/2025 HIV 1/2 ANTIG EN/AN TIBOD Y, REFLE X CONFI RMATI ON HIV antigen/anti body Nonrea ctive nonrea ctive HIV-1 antig en and HIV-1 /HIV- 2 antib odies were not detec ruy. No labor atory evide nce of HIV infec tion. Not Available [facility] (Lab) [address], [place], [address], 02/07/2025 13:12:56 02/07/2002/06/2025 HEPAT ITIS C ANTIB ANITA SCREE N, REFLE X TO CONFI RMATI ON hepatitis C antibody Non-re active non-re active Antib odies to HCV Not Detec ruy, does not exclu de the possi bilit y of expos ure to HCV. Not Available [facility] (Lab) [address], [place], [address], 02/07/2025 13:12:56 02/07/20 25 02/06/2025 RUBEL LA IGG ANTIB ANITA, QUANT rubella antibodies, IgG Reacti ve reacti ve Not Available [facility] (Lab) [address], [place], [address], 02/07/2025 13:12:56 02/07/20 25 02/06/2025 RUBEL LA IGG ANTIB ANITA, QUANT rubella antibodies, IgG quant 61.9 IU/mL >=10 Non-r eacti ve (Non- Immun e) <10 IU/mL React essie (Immu ne) > or = 10 IU/mL Not Available [facility] (Lab) [address], [place], [address], 02/07/2025 13:12:56 02/07/2002/06/2025 TYPE/ RH/SC REEN ABO/Rh type O POS Not Available [facility] (Lab) [address], [place], [address], 02/07/2025 13:12:57 02/07/2002/06/2025 TYPE/ RH/SC REEN antibody screen NEG Not Available [facility] (Lab) [address], [place], [address], 02/07/2025 13:12:57 02/07/2002/06/2025 TYPE/ RH/SC REEN exp date 2024 23:59 Not Available [facility] (Lab) [address], [place], [address], 02/07/2025 13:12:57 02/07/20 02/06/2025 RPR SCREE N, REFLE X TITER /CONF IRMAT ION RPR qualitative Nonrea ctive nonrea ctive Not Available [facility] (Lab) [address], [place], [address], 02/07/2025 13:12:57 02/07/20 25 02/06/2025 HEMOG LOBIN [...] >8.0% Actio n sugge sted Not Available [facility] (Lab) [address], [place], [address], 02/07/2025 13:12:57 02/07/2002/06/2025 CULTU RE: URINE result report SEE RESULT S BELOW Test: Cultu re: Urine Speci men Sourc e: Urine - Clean Catch Speci men Type: Urine Speci men Date: 2024 1737 Resul t Date: 2024 0700 Resul t Statu s: Final resul t Abnor mal: No Resul ting Lab: [facility] [address] [facility] [address] Tel: [phone] CULTU RE ----- ----- ----- --- Cultu re resul t (>=3 organ isms prese nt) indic ates possi ble conta minat ion. Repea t cultu re if sympt oms indic ate. Not Available [facility] (Lab) [address], [place], [address], 02/08/2025 08:03:32 02/07/20 25 02/06/2025 drug scree n, urine Amphetamines : negati ve Not Available [facility] [address], [place], [address], 02/06/2025 18:30:19 02/07/20 25 02/06/2025 drug scree n, urine Cannabinoids : negati ve Not Available [facility] [address], [place], [address], 02/06/2025 18:30:19 02/07/20 25 02/06/2025 drug scree n, urine Cocaine: negati ve Not Available [facility] [address], [place], [address], 02/06/2025 18:30:19 02/07/20 25 02/06/2025 drug scree n, urine Opiates: negati ve Not Available [facility] [address], [place], [address], 02/06/2025 18:30:19 02/07/20 25 02/06/2025 drug scree n, urine Phenocyclidi ne: negati ve Not Available [facility] [address], [place], [address], 02/06/2025 18:30:19 02/07/20 25 02/06/2025 drug scree n, urine Barbiturates : negati ve Not Available [facility] [address], [place], [address], 02/06/2025 18:30:19 02/07/20 25 02/06/2025 drug scree n, urine Benzodiazepi brayan: negati ve Not Available [facility] [address], [place], [address], 02/06/2025 18:30:19 02/07/20 25 02/06/2025 drug scree n, urine Ethanol: negati ve Not Available [facility] [address], [place], [address], 02/06/2025 18:30:19 02/07/2002/06/2025 drug scree n, urine Hallucinogen s: negati ve Not Available [facility] [address], [place], [address], 02/06/2025 18:30:19 02/07/20 25 02/06/2025 drug scree n, urine Inhalants: negati ve Not Available [facility] [address], [place], [address], 02/06/2025 18:30:19 02/07/20 25 02/06/2025 drug scree n, urine Anabolic Steroids: negati ve Not Available [facility] [address], [place], [address], 02/06/2025 18:30:19 02/07/20 25 02/06/2025 drug scree n, urine Other: negati ve Not Available [facility] [address], [place], [address], 02/06/2025 18:30:19 05/15/20 25 05/15/2025 HEMOG LOBIN (HGB) HGB 10.9 g/dL (based on docume nted legal sex) 11.6-1 5.4 low Not Available [facility] (Lab) [address] [place], [address], 05/16/2025 09:55:38 05/15/20 25 05/15/2025 HEMAT OCRIT (HCT) HCT 35.7 % (based on docume nted legal sex) 34.0-4 5.0 Not Available [facility] (Lab) [address] , [place], [address], 05/16/2025 09:55:39 05/15/20 25 05/15/2025 CBC W/DIF F WBC 14.6 10'3/ uL 3.5-10 .5 high Not Available [facility] (Lab) [address], [place], [address], 05/16/2025 09:55:39 05/15/2005/15/2025 CBC W/DIF F RBC 4.01 10'6/ uL (based on docume nted legal sex) 3.80-5 .20 Not Available [facility] (Lab) [address], [place], [address], 05/16/2025 09:55:39 05/15/2005/15/2025 CBC W/DIF F HGB 10.9 g/dL (based on docume nted legal sex) 11.6-1 5.4 low Not Available [facility] (Lab) [address], [place], [address], 05/16/2025 09:55:39 05/15/2005/15/2025 CBC W/DIF F HCT 35.7 % (based on docume nted legal sex) 34.0-4 5.0 Not Available [facility] (Lab) [address], [place], [address], 05/16/2025 09:55:39 05/15/2005/15/2025 CBC W/DIF F MCV 89.0 fL 80.0-9 9.0 Not Available [facility] (Lab) [address], [place], [address], 05/16/2025 09:55:39 05/15/2005/15/2025 CBC W/DIF F MCH 27.2 pg 27.0-3 4.0 Not Available [facility] (Lab) [address], [place], [address], 05/16/2025 09:55:39 05/15/2005/15/2025 CBC W/DIF F MCHC 30.5 g/dL 32.0-3 5.5 low Not Available [facility] (Lab) [address], [place], [address], 05/16/2025 09:55:39 05/15/2005/15/2025 CBC W/DIF F RDW 14.5 % 11.0-1 5.0 Not Available [facility] (Lab) [address], [place], [address], 05/16/2025 09:55:39 05/15/2005/15/2025 CBC W/DIF F plt 218 10'3/ uL 150-40 0 Not Available [facility] (Lab) [address], [place], [address], 05/16/2025 09:55:39 05/15/2005/15/2025 CBC W/DIF F MPV 11.1 fL 8.8-12 .1 Not Available [facility] (Lab) [address], [place], [address], 05/16/2025 09:55:39 05/15/2005/15/2025 CBC W/DIF F NRBC's 0.0 % 0.0 Not Available [facility] (Lab) [address], [place], [address], 05/16/2025 09:55:39 05/15/2005/15/2025 CBC W/DIF F absolute NRBCs 0.0 10'3/ uL no refere nce range establ ished Not Available [facility] (Lab) [address], [place], [address], 05/16/2025 09:55:39 05/15/2005/15/2025 CBC W/DIF F neutrophils 78.7 % 34.0-7 3.0 high Not Available [facility] (Lab) [address], [place], [address], 05/16/2025 09:55:39 05/15/2005/15/2025 CBC W/DIF F lymphocytes 15.0 % 15.0-5 0.0 Not Available [facility] (Lab) [address], [place], [address], 05/16/2025 09:55:39 05/15/2005/15/2025 CBC W/DIF F monocytes 4.9 % 1.0-15 .0 Not Available [facility] (Lab) [address], [place], [address], 05/16/2025 09:55:39 05/15/2005/15/2025 CBC W/DIF F eosinophils 0.6 % 0.0-8. 0 Not Available [facility] (Lab) [address], [place], [address], 05/16/2025 09:55:39 05/15/2005/15/2025 CBC W/DIF F basophils 0.3 % 0.0-2. 0 Not Available [facility] (Lab) [address], [place], [address], 05/16/2025 09:55:39 05/15/2005/15/2025 CBC W/DIF F immature granulocytes 0.5 % no define d refere nce range Immat ure Granu locyt es (IG) repre sents autom ated enume ratio n of Metam yeloc ytes, Myelo cytes and Promy elocy shlomo when IG is < 5%. Blast s are not inclu ded in IG and repor ruy separ ately if prese nt. Not Available [facility] (Lab) [address], [place], [address], 05/16/2025 09:55:39 05/15/2005/15/2025 CBC W/DIF F absolute neutrophils 11.4 10'3/ uL 1.5-8. 0 high Not Available [facility] (Lab) [address], [place], [address], 05/16/2025 09:55:39 05/15/2005/15/2025 CBC W/DIF F absolute lymphocytes 2.2 10'3/ uL 1.0-4. 0 Not Available [facility] (Lab) [address], [place], [address], 05/16/2025 09:55:39 05/15/2005/15/2025 CBC W/DIF F absolute monocytes 0.7 10'3/ uL 0.2-1. 0 Not Available [facility] (Lab) [address], [place], [address], 05/16/2025 09:55:39 05/15/2005/15/2025 CBC W/DIF F absolute eosinophils 0.1 10'3/ uL 0.0-0. 6 Not Available [facility] (Lab) [address], [place], [address], 05/16/2025 09:55:39 05/15/2005/15/2025 CBC W/DIF F absolute basophils 0.1 10'3/ uL 0.0-0. 3 Not Available [facility] (Lab) [address], [place], [address], 05/16/2025 09:55:39 05/15/2005/15/2025 CBC W/DIF F absolute [...] hyman book. nm.or g/gen derx Not Available [facility] (Lab) [address] , [place], [address], 05/16/2025 09:55:39 05/15/2005/15/2025 GTT - GESTA KHANH Islas, ACOG OB glucose, 1 hour screen 115 mg/dL 70-135 Not Available [facility] (Lab) [address], [place], [address], 05/16/2025 09:55:40 05/15/20 25 05/15/2025 URIC ACID uric acid 4.1 mg/dL 2.3-6. 6 Not Available [facility] (Lab) [address] [place], [address], 05/16/2025 09:55:40 05/15/20 25 05/15/2025 CMP(C OMPRE HENSI VE METAB OLIC PANEL ) sodium 138 mmol/ L 133-14 6 Not Available [facility] (Lab) [address], [place], [address], 05/16/2025 09:55:41 05/15/20 25 05/15/2025 CMP(C OMPRE HENSI VE METAB OLIC PANEL ) potassium 4.1 mmol/ L 3.5-5. 1 Not Available [facility] (Lab) [address], [place], [address], 05/16/2025 09:55:41 05/15/20 25 05/15/2025 CMP(C OMPRE HENSI VE METAB OLIC PANEL ) chloride 104 mmol/ L 98-107 Not Available [facility] (Lab) [address] [place], [address], 05/16/2025 09:55:41 05/15/20 25 05/15/2025 CMP(C OMPRE HENSI VE METAB OLIC PANEL ) carbon dioxide 24 mmol/ L 21-31 Not Available [facility] (Lab) [address] [place], [address], 05/16/2025 09:55:41 05/15/20 25 05/15/2025 CMP(C OMPRE HENSI VE METAB OLIC PANEL ) anion gap 10 mmol/ L 4-13 Not Available [facility] (Lab) [address] [place], [address], 05/16/2025 09:55:41 05/15/20 25 05/15/2025 CMP(C OMPRE HENSI VE METAB OLIC PANEL ) blood urea nitrogen 7 mg/dL 7-25 Not Available [facility] (Lab) [address], [place], [address], 05/16/2025 09:55:41 05/15/2005/15/2025 CMP(C OMPRE HENSI VE METAB OLIC PANEL ) creatinine 0.55 mg/dL 0.60-1 .30 low Not Available [facility] (Lab) [address], [place], [address], 05/16/2025 09:55:41 05/15/2005/15/2025 CMP(C OMPRE HENSI VE METAB OLIC PANEL ) egfrcr (CKD-epi 2020) >90 mL/mi n/1.7 3_m2 >=60 Not Available [facility] (Lab) [address], [place], [address], 05/16/2025 09:55:41 05/15/20 25 05/15/2025 CMP(C OMPRE HENSI VE METAB OLIC PANEL ) calcium 8.7 mg/dL 8.3-10 .5 Not Available [facility] (Lab) [address] [place], [address], 05/16/2025 09:55:41 05/15/20 25 05/15/2025 CMP(C OMPRE HENSI VE METAB OLIC PANEL ) glucose 115 mg/dL 70-100 high Not Available [facility] (Lab) [address] [place], [address], 05/16/2025 09:55:41 05/15/20 25 05/15/2025 CMP(C OMPRE HENSI VE METAB OLIC PANEL ) protein, total 5.7 g/dL 6.4-8. 3 low Not Available [facility] (Lab) [address], [place], [address], 05/16/2025 09:55:41 05/15/20 25 05/15/2025 CMP(C OMPRE HENSI VE METAB OLIC PANEL ) albumin 3.1 g/dL 3.5-5. 0 low Not Available [facility] (Lab) [address], [place], [address], 05/16/2025 09:55:41 05/15/2005/15/2025 CMP(C OMPRE HENSI VE METAB OLIC PANEL ) ALT 9 units /L 9-43 Not Available [facility] (Lab) [address], [place], [address], 05/16/2025 09:55:41 05/15/2005/15/2025 CMP(C OMPRE HENSI VE METAB OLIC PANEL ) alkaline phosphatase 114 units /L 34-104 high Not Available [facility] (Lab) [address], [place], [address], 05/16/2025 09:55:41 05/15/20 25 05/15/2025 CMP(C OMPRE HENSI VE METAB OLIC PANEL ) AST 11 units /L 13-39 low Not Available [facility] (Lab) [address], [place], [address], 05/16/2025 09:55:41 05/15/2005/15/2025 CMP(C OMPRE HENSI VE METAB OLIC PANEL ) bilirubin, total 0.3 mg/dL 0.2-1. 2 Not Available [facility] (Lab) [address], [place], [address], 05/16/2025 09:55:41 05/15/2005/15/2025 HIV 1/2 ANTIG EN/AN TIBOD Y, REFLE X CONFI RMATI ON HIV antigen/anti body Nonrea ctive nonrea ctive HIV-1 antig en and HIV-1 /HIV- 2 antib odies were not detec ruy. No labor atory evide nce of HIV infec tion. Not Available [facility] (Lab) [address], [place], [address], 05/16/2025 09:55:41 05/15/20 25 05/15/2025 PROTE IN/CR EATIN INE RATIO , URINE creatinine, urine 13.0 mg/dL R-No refer ence range estab lishe d for this assay Not Available [facility] (Lab) [address], [place], [address], 05/16/2025 09:55:42 05/15/20 25 05/15/2025 PROTE IN/CR EATIN INE RATIO , URINE protein, urine <4 mg/dL R-No refer ence range estab lishe d for this assay Not Available [facility] (Lab) [address], [place], [address], 05/16/2025 09:55:42 05/15/20 25 05/15/2025 PROTE IN/CR [...] fican t prote inuri a. Not Available [facility] (Lab) [address], [place], [address], 05/16/2025 09:55:42 05/15/20 25 05/15/2025 RPR SCREE N, REFLE X TITER /CONF IRMAT ION RPR qualitative Nonrea ctive nonrea ctive Not Available [facility] (Lab) [address], [place], [place], [address], 05/16/2025 09:55:42 06/26/20 25 06/26/2025 PROTE IN/CR EATIN INE RATIO , URINE creatinine, urine 177.6 mg/dL R-No refer ence range estab lishe d for this assay Not Available [facility] (Lab) [address], [place], [address], 06/27/2025 04:29:05 06/26/20 25 06/26/2025 PROTE IN/CR EATIN INE RATIO , URINE protein, urine 15 mg/dL R-No refer ence range estab lishe d for this assay Not Available [facility] (Lab) [address], [place], [address], 06/27/2025 04:29:05 06/26/20 25 06/26/2025 PROTE IN/CR [...] fican t prote inuri a. Not Available [facility] (Lab) [address], [place], [address], 06/27/2025 04:29:05 06/26/20 25 06/26/2025 CBC W/DIF F WBC 13.4 10'3/ uL 3.5-10 .5 high Not Available [facility] (Lab) [address], [place], [address], 06/27/2025 04:29:05 06/26/20 25 06/26/2025 CBC W/DIF F RBC 4.22 10'6/ uL (based on docume nted legal sex) 3.80-5 .20 Not Available [facility] (Lab) [address], [place], [address], 06/27/2025 04:29:05 06/26/20 25 06/26/2025 CBC W/DIF F HGB 11.9 g/dL (based on docume nted legal sex) 11.6-1 5.4 Not Available [facility] (Lab) [address], [place], [address], 06/27/2025 04:29:05 06/26/20 25 06/26/2025 CBC W/DIF F HCT 37.5 % (based on docume nted legal sex) 34.0-4 5.0 Not Available [facility] (Lab) [address], [place], [address], 06/27/2025 04:29:05 06/26/20 25 06/26/2025 CBC W/DIF F MCV 88.9 fL 80.0-9 9.0 Not Available [facility] (Lab) [address], [place], [address], 06/27/2025 04:29:05 06/26/2006/26/2025 CBC W/DIF F MCH 28.2 pg 27.0-3 4.0 Not Available [facility] (Lab) [address], [place], [address], 06/27/2025 04:29:05 06/26/20 25 06/26/2025 CBC W/DIF F MCHC 31.7 g/dL 32.0-3 5.5 low Not Available [facility] (Lab) [address], [place], [address], 06/27/2025 04:29:05 06/26/20 25 06/26/2025 CBC W/DIF F RDW 14.6 % 11.0-1 5.0 Not Available [facility] (Lab) [address], [place], [address], 06/27/2025 04:29:05 06/26/2006/26/2025 CBC W/DIF F plt 224 10'3/ uL 150-40 0 Not Available [facility] (Lab) [address], [place], [address], 06/27/2025 04:29:05 06/26/20 25 06/26/2025 CBC W/DIF F MPV 12.2 fL 8.8-12 .1 high Not Available [facility] (Lab) [address], [place], [address], 06/27/2025 04:29:05 06/26/20 25 06/26/2025 CBC W/DIF F NRBC's 0.0 % 0.0 Not Available [facility] (Lab) [address], [place], [address], 06/27/2025 04:29:05 06/26/20 25 06/26/2025 CBC W/DIF F absolute NRBCs 0.0 10'3/ uL no refere nce range establ ished Not Available [facility] (Lab) [address], [place], [address], 06/27/2025 04:29:05 06/26/20 25 06/26/2025 CBC W/DIF F neutrophils 73.2 % 34.0-7 3.0 high Not Available [facility] (Lab) [address], [place], [address], 06/27/2025 04:29:05 06/26/20 25 06/26/2025 CBC W/DIF F lymphocytes 18.3 % 15.0-5 0.0 Not Available [facility] (Lab) [address], [place], [address], 06/27/2025 04:29:05 06/26/20 25 06/26/2025 CBC W/DIF F monocytes 7.5 % 1.0-15 .0 Not Available [facility] (Lab) [address], [place], [address], 06/27/2025 04:29:05 06/26/20 25 06/26/2025 CBC W/DIF F eosinophils 0.4 % 0.0-8. 0 Not Available [facility] (Lab) [address], [place], [address], 06/27/2025 04:29:05 06/26/20 25 06/26/2025 CBC W/DIF F basophils 0.2 % 0.0-2. 0 Not Available [facility] (Lab) [address], [place], [address], 06/27/2025 04:29:05 06/26/20 25 06/26/2025 CBC W/DIF [...] separ ately if prese nt. Not Available [facility] (Lab) [address], [place], [address], 06/27/2025 04:29:05 06/26/20 25 06/26/2025 CBC W/DIF F absolute neutrophils 9.8 10'3/ uL 1.5-8. 0 high Not Available [facility] (Lab) [address] , [place], [address], 06/27/2025 04:29:05 06/26/20 25 06/26/2025 CBC W/DIF F absolute lymphocytes 2.5 10'3/ uL 1.0-4. 0 Not Available [facility] (Lab) [address] , [place], [address], 06/27/2025 04:29:05 06/26/20 25 06/26/2025 CBC W/DIF F absolute monocytes 1.0 10'3/ uL 0.2-1. 0 Not Available [facility] (Lab) [address] , [place], [address], 06/27/2025 04:29:05 06/26/20 25 06/26/2025 CBC W/DIF F absolute eosinophils 0.1 10'3/ uL 0.0-0. 6 Not Available [facility] (Lab) [address], [place], [address], 06/27/2025 04:29:05 06/26/20 25 06/26/2025 CBC W/DIF F absolute basophils 0.0 10'3/ uL 0.0-0. 3 Not Available [facility] (Lab) [address], [place], [address], 06/27/2025 04:29:05 06/26/20 25 06/26/2025 CBC W/DIF F absolute immature granulocytes 0.1 10'3/ uL 0.00-0 .10 Refer ence range s for nonbi nary/ inter sex or unspe cifie d gende r patie nts have not been estab lishe d. [facility] for range s estab lishe d for cisge nder patie nts and evalu ate in the clini patrice kristal xt of the indiv idual patie nt: https ://jose donna book. nm.or g/gen derx Not Available [facility] (Lab) [address], [place], [address], 06/27/2025 04:29:05 06/26/2006/26/2025 URIC ACID uric acid 4.8 mg/dL 2.3-6. 6 Not Available [facility] (Lab) [address] [place], [address], 06/27/2025 04:29:06 06/26/20 25 06/26/2025 CMP(C OMPRE HENSI VE METAB OLIC PANEL ) sodium 138 mmol/ L 133-14 6 Not Available [facility] (Lab) [address], [place], [address], 06/27/2025 04:29:06 06/26/20 25 06/26/2025 CMP(C OMPRE HENSI VE METAB OLIC PANEL ) potassium 4.0 mmol/ L 3.5-5. 1 Not Available [facility] (Lab) [address] [place], [address], 06/27/2025 04:29:06 06/26/20 25 06/26/2025 CMP(C OMPRE HENSI VE METAB OLIC PANEL ) chloride 103 mmol/ L 98-107 Not Available [facility] (Lab) [address], [place], [address], 06/27/2025 04:29:06 06/26/20 25 06/26/2025 CMP(C OMPRE HENSI VE METAB OLIC PANEL ) carbon dioxide 26 mmol/ L 21-31 Not Available [facility] (Lab) [address], [place], [address], 06/27/2025 04:29:06 06/26/2006/26/2025 CMP(C OMPRE HENSI VE METAB OLIC PANEL ) anion gap 9 mmol/ L 4-13 Not Available [facility] (Lab) [address], [place], [address], 06/27/2025 04:29:06 06/26/20 25 06/26/2025 CMP(C OMPRE HENSI VE METAB OLIC PANEL ) blood urea nitrogen 7 mg/dL 7-25 Not Available [facility] (Lab) [address], [place], [address], 06/27/2025 04:29:06 06/26/20 25 06/26/2025 CMP(C OMPRE HENSI VE METAB OLIC PANEL ) creatinine 0.66 mg/dL 0.60-1 .30 Not Available [facility] (Lab) [address], [place], [address], 06/27/2025 04:29:06 06/26/2006/26/2025 CMP(C OMPRE HENSI VE METAB OLIC PANEL ) egfrcr (CKD-epi 2020) >90 mL/mi n/1.7 3_m2 >=60 Not Available [facility] (Lab) [address], [place], [address], 06/27/2025 04:29:06 06/26/20 25 06/26/2025 CMP(C OMPRE HENSI VE METAB OLIC PANEL ) calcium 9.0 mg/dL 8.3-10 .5 Not Available [facility] (Lab) [address], [place], [address], 06/27/2025 04:29:06 06/26/20 25 06/26/2025 CMP(C OMPRE HENSI VE METAB OLIC PANEL ) glucose 74 mg/dL 70-100 Not Available [facility] (Lab) [address], [place], [address], 06/27/2025 04:29:06 06/26/2006/26/2025 CMP(C OMPRE HENSI VE METAB OLIC PANEL ) protein, total 6.1 g/dL 6.4-8. 3 low Not Available [facility] (Lab) [address] [place], [address], 06/27/2025 04:29:06 06/26/20 25 06/26/2025 CMP(C OMPRE HENSI VE METAB OLIC PANEL ) albumin 3.3 g/dL 3.5-5. 0 low Not Available [facility] (Lab) [address] [place], [address], 06/27/2025 04:29:06 06/26/20 25 06/26/2025 CMP(C OMPRE HENSI VE METAB OLIC PANEL ) ALT 36 units /L 9-43 Not Available [facility] (Lab) [address] [place], [address], 06/27/2025 04:29:06 06/26/20 25 06/26/2025 CMP(C OMPRE HENSI VE METAB OLIC PANEL ) alkaline phosphatase 131 units /L 34-104 high Not Available [facility] (Lab) [address] [place], [address], 06/27/2025 04:29:06 06/26/20 25 06/26/2025 CMP(C OMPRE HENSI VE METAB OLIC PANEL ) AST 20 units /L 13-39 Not Available [facility] (Lab) [address], [place], [address], 06/27/2025 04:29:06 06/26/20 25 06/26/2025 CMP(C OMPRE HENSI VE METAB OLIC PANEL ) bilirubin, total 0.3 mg/dL 0.2-1. 2 Not Available [facility] (Lab) [address], [place], [address], 06/27/2025 04:29:06 02/07/20 25 02/06/2025 US, obste tric, nucha l trans lucen cy No observ ation record ed. [email or web address] [address], [place], [address], 02/06/2025 17:26:10 02/07/20 25 02/06/2025 US, obste tric, follo w-up No observ ation record ed. [email or web address] Vivi [address], [place], [address], 02/07/2025 11:49:39 03/27/20 25 03/27/2025 US, obste tric, 2nd or 3rd trime ster No observ ation record ed. [email or web address] [address], [place], [address], 03/27/2025 16:50:03 03/27/20 25 03/27/2025 US, obste tric, 2nd or 3rd trime ster No observ ation record ed. [email or web address] Vivi [address], [place], [address], 04/01/2025 20:55:55 04/24/20 25 04/24/2025 US, obste tric, follo w-up No observ ation record ed. bertha [address], [place], [address], 04/24/2025 18:50:20 04/24/20 25 04/24/2025 US, obste tric, follo w-up No observ ation record ed. [email or web address] Vivi [address], [place], [address], 05/02/2025 18:12:06 05/05/20 25 05/05/2025 US, obste tric, limit ed No observ ation record ed. [address] [facility], [place], [address], 05/08/2025 11:23:32 05/05/20 25 05/05/2025 US, obste tric, limit ed No observ ation record ed. [address] [facility], [place], [address], 05/08/2025 11:23:15 05/06/20 25 05/05/2025 non-s tress test No observ ation record ed. [address] [facility], [place], [address], 05/14/2025 16:17:57 06/12/2006/12/2025 US, obste tric, follo w-up No observ ation record ed. [email or web address] [address], [place], [address], 06/12/2025 13:37:49 06/12/2006/12/2025 US, obste tric, follo w-up No observ ation record ed. [email or web address] Vivi [address], [place], [address], 06/14/2025 12:40:46 06/26/20 25 06/26/2025 non-s tress test No observ ation record ed. [email or web address] [address], [place], [address], 06/26/2025 17:40:02 06/26/20 non-s tress test No observ ation record ed. [email or web address] [address], [place], [address], 06/26/2025 17:40:25 07/03/20 25 07/03/2025 US, obste tric, bioph ysica l profi le + non-s tress test No observ ation record ed. [email or web address] [address], [place], [address], 07/03/2025 10:21:51 07/03/2007/03/2025 US, obste tric, bioph ysica l profi le + non-s tress test No observ ation record ed. [email or web address] Vivi [address], [place], [address], 07/03/2025 10:36:03 07/03/2007/03/2025 non-s tress test No observ ation record ed. [email or web address] [address], [place], [address], 07/03/2025 17:34:00 07/03/20 non-s tress test No observ ation record ed. [email or web address] [address], [place], [address], 07/03/2025 16:02:31 07/10/2007/10/2025 US, obste tric, follo w-up No observ ation record ed. [email or web address] Viv[address], [place], [address], 07/10/2025 11:53:53 07/10/2007/10/2025 US, obste tric, follo w-up No observ ation record ed. [email or web address] [address], [place], [address], 07/10/2025 13:24:28 07/10/20 25 07/10/2025 US, obste tric, bioph ysica l profi le + non-s tress test No observ ation record ed. [email or web address] [address], [place], [address], 07/10/2025 13:24:41 07/10/20 25 07/10/2025 non-s tress test No observ ation record ed. [email or web address] [address], [place], [address], 07/10/2025 16:54:42 07/10/20 non-s tress test No observ ation record ed. [address], [place], [address], 07/10/2025 16:55:51 07/17/2007/17/2025 non-s tress test No observ ation record ed. [email or web address] [address], [place], [address], 07/19/2025 11:50:49 07/17/20 non-s tress test No observ ation record ed. [address], [place], [address], 07/17/2025 10:56:47 07/17/2007/17/2025 US, obste tric, bioph ysica l profi le + non-s tress test No observ ation record ed. [email or web address] [address], [place], [address], 07/17/2025 13:24:17 07/17/20 25 07/17/2025 US, obste tric, bioph ysica l profi le + non-s tress test No observ ation record ed. [email or web address] Vivi [address], [place], [address], 07/17/2025 11:37:56 07/24/2007/24/2025 US, obste tric, bioph ysica l profi le + non-s tress test No observ ation record ed. [email or web address] Vivi [address], [place], [address], 07/24/2025 11:16:54 07/24/2007/24/2025 US, obste tric, bioph ysica l profi le + non-s tress test No observ ation record ed. [facility] [address], [place], [address], 07/24/2025 18:17:48 07/24/2007/24/2025 non-s tress test No observ ation record ed. [facility] [address], [place], [address], 07/24/2025 18:19:09 07/24/20 non-s tress test No observ ation record ed. [email or web address] [address], [place], [address], 07/24/2025 16:00:08 Result Notes None recorded. Problems Name Problem SNOMED Code Status Onset Date Resolution Date Notes Provider Name and Address Organization Details Recorded Time Pregnanc y test negative 659834241 Completed 201409/02/2020 Pregnanc y examinat ion or test, negative result;R ecorded Elsewher e: No [facility] EHR Bulldozer Press Operator elena: N Practi ce ID: 0001 Grabiel lable Time: 03:15:00 PM Beverley [place], [place] - [facility] 0 17:56:19 Obesity [id number] Completed 201409/03/2020 Obesity, unspecif ied;Prac bronson ID: 0001 Beverley lopez, [facility] 0 14:20:47 Speciali zed medical examinat ion Completed 201409/02/2020 Routine gynecolo gical examinat ion;Prac bronson ID: 0001 Beverley lopez, [facility] 0 17:57:40 Screenin g for malignan t neoplasm of cervix Completed 201409/02/2020 Pap Smear;Pr actice ID: 0001 Beverley lopez, [facility] 0 17:56:38 Educatio n Completed 201409/02/2020 Family planning ;Recorde d Elsewher e: No Locat ion: [facility] S ource: EHR Bulldozer Press Operator elena: N Practi ce ID: 0001 Grabiel lable Time: 04:00:00 PM Beverley lopez, [facility] 0 17:55:08 Female infertil ity [id number] Completed 201410/17/2020 Infertil ity, female, of unspecif ied origin;P ractice ID: 0001 Beverley lopez, [facility] 1 10:55:45 Body mass index 30+ - obesity [id number] Completed 201510/17/2020 Body mass index (BMI) 39.0-39. 9, adult;Re corded Elsewher e: No Locat ion: [facility] S ource: EHR Bul[employer]ozer Press Operator elena: N Practi ce ID: 0001 Grabiel lable Time: 11:00:00 AM Beverley lopez, [facility] 1 10:55:40 Syncope and collapse [id number] Completed 201510/17/2020 Syncope and collapse ;Recorde d Elsewher e: No Locat ion: [facility] S ource: EHR Bulldozer Press Operator elena: N Practi ce ID: 0001 Grabiel lable Time: 10:30:00 AM Beverley lopez, [facility] 1 10:56:12 Gestatio n less than 9 weeks [id number] Completed 201509/02/2020 Less than 8 weeks gestatio n of pregnanc y;Practi ce ID: 0001 Beverley Corinne lopez, [facility] 0 17:55:27 Pregnanc y, childbir th and puerperi um finding Completed 201510/17/2020 Encntr for suprvsn of normal first preg, first trimeste r;Practi ce ID: 0001 Beverley lopez, [facility] 1 10:55:59 Gestatio n period, 12 weeks [id number] Completed 201509/02/2020 12 weeks gestatio n of pregnanc y;Practi ce ID: 0001 Beverley lopez, [facility] 0 17:55:30 Pregnanc y, childbir th and puerperi um finding Completed 201509/02/2020 Encntr for suprvsn of normal first preg, second trimeste r;Practi ce ID: 0001 Beverley lopez, [facility] 0 17:56:27 Gestatio n period, 32 weeks [id number] Completed 201509/02/2020 32 weeks gestatio n of pregnanc y;Practi ce ID: 0001 Beverley lopez, [facility] 0 17:55:35 Pregnanc y, childbir th and puerperi um finding Completed 201509/03/2020 Encounte r for supervis ion of normal first pregnanc y, third trimeste r;Record ed Elsewher e: No Locat ion: Sally malik [facility] S ource: EHR Bulldozer Press Operator elena: N Practi ce ID: 0001 Grabiel lable Time: 05:30:00 PM Beverley lopez, [facility] 0 14:20:36 Gestatio n period, 33 weeks [id number] Completed 201509/02/2020 33 weeks gestatio n of pregnanc y;Record ed Elsewher e: No Locat ion: Sally malik [facility] S ource: EHR Bulldozer Press Operator elena: N Practi ce ID: 0001 Grabiel lable Time: 09:00:00 AM Beverley lopez, [facility] 0 17:55:39 Normal pregnanc y in multigra [place] [id number] Completed 201509/02/2020 Encounte r for suprvsn of normal pregnanc y, third trimeste r;Practi ce ID: 0001 Beverley lopez, [facility] 0 17:56:11 Gestatio n period, 34 weeks [id number] Completed 201509/02/2020 34 weeks gestatio n of pregnanc y;Practi ce ID: 0001 Beverley lopez, [facility] 0 17:55:42 Pregnanc y-induce d hyperten tonya Completed 201503/27/2021 Gestatio nal htn w/o signific ant proteinu che, third trimeste r;Record ed Elsewher e: No Locat ion: Sally malik [facility] S ource: EHR Bulldozer Press Operator elena: N Practi ce ID: 0001 Grabiel lable Time: 03:00:00 PM Beverley lopez, [facility] 1 16:36:34 Gestatio n period, 36 weeks [id number] Completed 201509/02/2020 36 weeks gestatio n of pregnanc y;Practi ce ID: 0001 Beverley lopez, [facility] 0 17:55:48 Single live from singleto n pregnanc y [id number] Completed 201509/03/2020 Single live ;Pr actice ID: 0001 Beverley lopez, [facility] 0 14:20:54 Gestatio n period, 37 weeks [id number] Completed 201509/02/2020 37 weeks gestatio n of pregnanc y;Practi ce ID: 0001 Beverley lopez, [facility] 0 17:55:50 Pregnanc y-induce d hyperten tonya Completed 201509/02/2020 Gestatio nal htn w/o signific ant proteinu che, unsp trimeste r;Practi ce ID: 0001 Beverley lopez, [facility] 0 17:57:29 Hyperten sive disorder [id number] Completed 201503/27/2021 Benign hyperten tonya;Rec orded Elsewher e: No Locat ion: Sally malik [facility] S ource: EHR Bulldozer Press Operator elena: N Practi ce ID: 0001 Grabiel lable Time: 10:30:00 AM Beverley lopez [facility] 5 19:18:30 Non-prot einuric hyperten tonya of pregnanc y [id number] Completed 201510/17/2020 Gestatnl htn without signific ant protein, comp the puerp;Pr actice ID: 0001 Beverley lopez [facility] 1 10:56:02 Lochia finding Completed 201510/17/2020 Encounte r for routine postpart um follow-u p;Practi ce ID: 0001 Beverley lopez [facility] 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 S ource: EHR Bulldozer Press Operator elena: N Practi ce ID: 0001 Grabiel lable Time: 10:30:00 AM Beverley lopez, [facility] 0 17:56:45 Pregnanc y detectio n examinat ion Completed 201809/02/2020 Encounte r for pregnanc y test, result positive ;Practic e ID: 0001 Beverley lopez, [facility] 0 17:56:17 Uterine size for dates discrepa ncy Completed 201810/17/2020 Uterine size-malia e discrepa ncy, first trimeste r;Practi ce ID: 0001 Beverley Sun jessica, [facility] 1 10:56:17 Secondar y amenorrh ea [id number] Completed 201810/17/2020 Secondar y amenorrh ea;Recor ded Elsewher e: No Locat ion: [facility] S ource: EHR Bulldozer Press Operator elena: N Practi ce ID: 0001 Grabiel lable Time: 10:30:00 AM Beverley Sun jessica, [facility] 1 10:56:05 Infectio n screenin g Completed 201809/02/2020 Encounte r for screenin g for oth infec/pa rastc diseases ;Recorde d Elsewher e: No Locat ion: [facility] S ource: EHR Bulldozer Press Operator elena: N Practi ce ID: 0001 Grabiel lable Time: 10:30:00 AM Beverley Sun jessica, [facility] 0 17:56:03 Syphilis test finding [id number] Completed 201809/03/2020 Encntr screen for infectio ns w sexl mode of transmis s;Record ed Elsewher e: No Locat ion: [facility] S ource: EHR Bulldozer Press Operator elena: N Practi ce ID: 0001 Grabiel lable Time: 10:30:00 AM Beverley Sun jessica [facility] 0 14:20:58 Finding of viabilit y of pregnanc y [id number] Completed 201809/02/2020 Pregnanc y w inconclu sive viabilit y, unsp;Pra ctice ID: 0001 Beverley lopez, [facility] 0 17:55:21 Finding of contents of cervix [id number] Completed 201809/02/2020 Weeks of gestatio n of pregnanc y not specifie d;Practi ce ID: 0001 Beverley Sun [facility], [facility] 0 17:55:14 Threaten ed miscarri age [id number] Completed 201810/17/2020 Threaten ed ;Recorde d Elsewher e: No Locat ion: [facility] S ource: EHR Bulldozer Press Operator elena: N Practi ce ID: [id number] Grabiel lable Time: 12:30:00 PM Beverley Sun [facility], [facility] 1 10:56:15 Gestatio n period, 8 weeks [id number] Completed 201809/02/2020 8 weeks gestatio n of pregnanc y;Practi ce ID: 0001 Beverley Sun [facility], [facility] 0 17:55:55 Rubella screenin g status [id number] Completed 201809/02/2020 Encounte r for antenata l screenin g, unspecif ied;Benitez rded Elsewher e: No Locat ion: [facility] S ource: EHR Bulldozer Press Operator elena: N Practi ce ID: 0001 Grabiel lable Time: 04:30:00 PM Beverley Sun [facility], [facility] 0 17:56:34 Antenata l screenin g Completed 201809/02/2020 Encounte r for antenata l screenin g for nuchal transluc ency;Pra ctice ID: 0001 Beverleykaty Sun [facility], [facility] 0 17:57:11 Antenata l screenin g for malforma tion Completed 201809/02/2020 Encounte r for antenata l screenin g for malforma tions;Re corded Elsewher e: No Locat ion: Reilly helena [facility] S ource: EHR Bulldozer Press Operator elena: N Practi ce ID: 0001 Grabiel lable Time: 08:15:00 AM Beverley Sun jessica, [facility] 0 17:57:13 Gestatio n period, 29 weeks [id number] Completed 201809/02/2020 29 weeks gestatio n of pregnanc y;Record ed Elsewher e: No Locat ion: [facility] helena [facility] [facility]: EHR Bulldozer Press Operator elena: N Practi ce ID: 0001 Grabiel lable Time: 03:45:00 PM Beverley lopez, [facility] 0 17:55:32 Clinical finding Completed 201810/17/2020 Tachycar rishi, unspecif ied;Benitez rded Elsewher e: No [facility]: EHR Bulldozer Press Operator elena: N Practi ce ID: 0001 Grabiel lable Time: 11:15:00 AM Beverley Sun jessica, [facility] 1 10:55:44 Clinical finding Completed 201809/02/2020 Obesity, unspecif ied;Benitez rded Elsewher e: No [facility]: EHR Bulldozer Press Operator elena: N Practi ce ID: 0001 Grabiel lable Time: 03:00:00 PM Bevelrey Sun jessica, [facility] 0 17:55:24 Finding of body mass index 211602669 Completed 201809/02/2020 Body mass index (BMI) 40.0-44. 9, adult;Re corded Elsewher e: No Locat ion: [facility] S ource: EHR Bulldozer Press Operator elena: N Practi ce ID: 0001 Grabiel lable Time: 02:00:00 PM Beverley lopez [facility] 0 17:56:59 Gestatio n period, 35 weeks 45986112 Completed 201809/02/2020 35 weeks gestatio n of pregnanc y;Record ed Elsewher e: No Locat ion: Sally malik [facility] S ource: EHR Bulldozer Press Operator elena: N Practi ce ID: 0001 Grabiel lable Time: 02:00:00 PM Beverley lopez [facility] 0 17:55:44 Severe obesity complica ting pregnanc y 8554317034 1496142 Completed 201810/17/2020 Obesity complica ting pregnanc y, third trimeste r;Record ed Elsewher e: No Locat ion: Sally malik [facility] S ource: EHR Bulldozer Press Operator elena: N Practi ce ID: 0001 Grabiel lable Time: 03:00:00 PM Beverley lopez [facility] 1 10:56:10 Gestatio n period, 38 weeks 96906069 Completed 201809/02/2020 38 weeks gestatio n of pregnanc y;Record ed Elsewher e: No Locat ion: [facility] Practi ce ID: 0001 Grabiel lable Time: 11:00:00 AM Beverley lopez [facility] 0 17:55:53 Hyperten tonya in the obstetri c context Completed 201810/17/2020 Pre-exis ting essentia l htn comp pregnanc y, third trimeste r;Practi ce ID: 0001 Beverley lopez, [facility] 1 10:55:52 Attentio n deficit hyperact ivity disorder 654009097 Active 2024 stopped taking medicati on when found out Beverley lopez, [facility] 19:38:30 Mixed anxiety and depressi ve disorder 461341721 Active 2024 Beverley lopez, [facility] 19:37:00 Hyperten sive disorder 90480820 Active 2024 Medina Whitaker CNM [address], [place], [address], [facility] 17:26:39 Headache 04228601 Active 2024 Beverley Sun [facility], [facility] 19:37:14 Pregnanc y 04764871 Active 2024 Beverley lopez, [facility] 19:36:35 Mixed anxiety and depressi ve disorder 762601187 Active 2024 Beverley lopez, [facility] 19:37:00 Headache 17765451 Active 2024 Beverley Sun [facility], [facility] 19:37:14 Past pregnanc y history of gestatio nal hyperten tonya 715871294 Active 2024 2016 pregnanc y start bASA x 2 daily Medina Whitaker CNM [address], [place], [address], [facility] 17:26:14 Attentio n deficit hyperact ivity disorder 703846920 Active 2024 stopped taking medicati on when found out Beverley olpez, [facility] 19:38:30 Obesity 838177923 Active 2024 antenata l testing @ 34wks Sonya lopez, [facility] 07/21/202 5 20:55:07 Hyperten tonya AND/OR vomiting complica ting pregnanc y childbir th AND/OR puerperi 416920308 Active 2024 Medina Whitaker CNM [address], [place], [address], [facility] 5 15:51:32 Notes:Encounter for antenata l screening of mother Recorded Elsewhere: No Location: [facility] Source: EHR Chronic: N Practice ID: [id number] Billable Time: 10:30:00 AM Encounter for screening of mother Practice ID: [id number] Encounter for screening of mother Recorded Elsewhere: No Location: [facility] Source: EHR Chronic: N Practice ID: 0001 Billable Time: 10:30:00 AM Encounter for screening of mother Practice ID: 0001 Problem Notes None recorded. Procedures Surgical History Date Name Laterality Status Provider Name and Address Organization Details Recorded Time 1 Date of Last Pap Smear completed [facility] 02/06/2025 08:37:03 1 extraction of wisdom tooth completed [facility] 02/06/2025 19:33:27 Imaging Results None recorded. [...] Prescrib ed Elsewher e: No [facility] odify By: [email or web address] z Encoun ter DateTime : 08/25/20 08:06:19 AM Not [...] hours if needed 09/02 completed Prescrib ed [facility] e: No Locat ion: [facility] odify By: rocio solorzano DateTime : 10/26/19 11:16:05 AM Not Available [...] Prescrib ed Elsewher e: No Locat ion: [facility] odify By: [email or web address] z Encoun ter DateTime [...] times every day 07/23 completed Prescrib ed Elsewher e: No Locat ion: [facility] odify By: [email or web address] Encounte r DateTime : 07/05/20 16 12:34:25 PM Not Available Not Available Not [...] Not Available Not Available Iodides Tincture topical 04/24 completed Not Available Not Available Not Available [...] Not Available Not Available Vitals Date Recorded Systolic And Diastolic Provider Name and Address Organization Details Last Updated DateTime 06/26/2025 140/90 mm[Hg] Medina Whitaker , [facility] [address], [place], [address], [facility] 06/26/2025 15:51:43 Date Recorded Body height Body mass index (BMI) Body weight Provider Name and Address Organization Details Last Updated DateTime 06/26/2025 167.64 cm 49.6 kg/m2 974216.86 g Jaqueline Maier [facility] 06/26/2025 14:59:44 Social History Question Answer Notes LastModified by Organizat ion Details LastModified Time Tobacco Smoking Status Never Smoker Beverley lopez, [facility] 03/21/2020 13:16:23 Do You Have An Advance Directive? No Information n ot available 01/07/2025 If You Are , What Was Your Level Of Alcohol Consumption Prior To ? Occasional Information not available 10/17/2020 Are You Blind Or Do You Have Difficulty Seeing? No [email or web address] Information n ot available 03/27/2021 What Is Your Level Of Caffeine Consumption? Occasional [email or web address] Information not available 10/17/2020 In The 14 Days Before Symptom Onset, Have You Had Close Contact With A Laboratory-confirm ed COVID-19 While That Case Was Ill? No [email or web address] Information n ot available 03/27/2021 In The 14 Days Before Symptom Onset, Have You Had Close Contact With A Person Who Is Under Investigation For COVID-19 While That Person Was Ill? No [email or web address] Information not available 03/27/2021 Have You Been To An Area Known To Be High Risk For COVID-19? No [email or web address] Information not available 03/27/2021 Are You Deaf Or Do You Have Serious Difficulty Hearing? No [email or web address] Information not available 03/27/2021 What Type Of Diet Are You Following? REGULAR [email or web address] Information n ot available 03/27/2021 What Is The Highest Grade Or Level Of School You Have Completed Or The Highest Degree You Have Received? DX87314-7 Information not available 01/07/2025 What Was The Date Of Your Most Recent Tobacco Screening? 02/06/2025 [email or web address] Information not available 02/06/2025 Have You Ever Been Counseled For Unhealthy Alcohol Use? No [email or web address] Information not available 10/17/2020 Do You Use Protection During Sex? No Information not available 01/07/2025 Do You Use Your Seat Belt Or Car Seat Routinely? Yes [email or web address] Information not available 03/27/2021 Do You Have Smoke And Carbon Monoxide Detectors In Your Home? Yes [email or web address] Information not available 03/27/2021 How Much Tobacco Do You Smoke? No [email or web address] Information not available 03/21/2020 Do You Use Sunscreen Routinely? Yes [email or web address] Information not available 03/27/2021 Has Tobacco Cessation Counseling Been Provided? No [email or web address] Information not available 10/17/2020 Have You Used IV Drugs? No Information not available 01/07/2025 Do You Have Difficulty Walking Or Climbing Stairs? No [email or web address] Information not available 02/06/2025 Sex: Unknown Functional Status Question Answer Note LastModified by Organizat ion Details LastModified Time Do you use any illicit or recreational drugs? No [email or web address] Information not available 10/17/2020 Do you or have you ever used any other forms of tobacco or nicotine? No [email or web address] Information not available 10/17/2020 What is your level of alcohol consumption? None [email or web address] Information not available 02/06/2025 Do you or have you ever used smokeless tobacco? Never used smokeless tobacco [email or web address] Information not available 03/21/2020 Are you able to walk independently without assistance or assistive devices? YESWOREST [email or web address] Information not available 03/27/2021 Are you able to care for yourself independently? Yes [email or web address] Information not available 02/06/2025 Do you have difficulty dressing, bathing, grooming, or toileting? No [email or web address] Information not available 02/06/2025 Do you or have you ever used e-cigarettes or vape? Never used electronic cigarettes Information not available 03/21/2020 What is your exercise level? Occasional Information not available 03/21/2020 Mental Status Question Answer Note LastModified by Organization D etails LastModified Time Do you feel stressed (tense, restless, nervous, or anxious, or unable to sleep at night)? [id number] [email or web address] Information not available 03/27/2021 Family History Relationship Description Onset Age of this Age Resolved Age Notes LastModified by Organization Details LastModified Time Mother Disorder of thyroid gland [email or web address] Not available 03/21 13:15:49 Father Diabetes mellitus Not available 03/21 13:16:06 Maternal Grandfather Diabetes mellitus [email or web address] Not available 03/21 13:16:06 Maternal Grandmother Malignant neoplasm of lung [email or web address] Not available 12/13 11:16:48 Medical History Condition Response Allergies (Food, seasonal, environmental ) Y Other N Drug/Latex Allergies/Reactions N Breast Cancer N Blood Transfusion N Dermatologic Disorders N Lung Disease N [...] ICD10 Code Diagnosis IMO Codes Diagnosis Note [id number] [facility] [address] [address] 05/29/2025 09:18:49 05/29/2025 09:51:39 Gestation period, 29 weeks 63212142 Z3A.29 1751341 [id number] Lobito Salinas MD [place] [address] [place] [address] 06/12/2025 11:17:33 06/12/2025 12:05:04 Large for gestation age fetus 310290898 O36.60X0 Z3A.31 61119022 [id number] [facility] [address] [place] [address] 06/12/2025 11:18:32 06/12/2025 14:07:15 Gestation period, 31 weeks 09081100 Z3A.31 9686525 [id number] [facility] [address] [place] [address] 06/26/2025 14:50:38 06/26/2025 15:53:19 Gestation period, 33 weeks 39216370 Z3A.33 0755894 [id number] [facility] [address] [place] [address] 06/26/2025 15:32:15 06/26/2025 17:47:00 Hypertension AND/OR vomiting complicating childbirth AND/OR puerperium 784761960 O13.3 [id number] Health Concerns Section Related Observation LastModified by Organization Detai ls LastModified Time None Recorded Concern Status LastModified by Organization Details LastModified Time None Recorded Payers Encounter Date Sequence Insurance Name Policy Number Policy Ventura Covered Member ID Ventura Member ID Guarantor Name 06/26/2025 1 [employer] [id number] Apolinar Rivers [id number] Whit Rivers Notes Date Note Type Note Provider Name and Address Organization Details Recorded Time 06/26/2025 text/html Generic HPI TemplateReported by Patient Medina Whitaker CNM [address], [place], [address], [facility] 06/26/2025 15:52:45 OBGyn Episode Ob Episode Information Episode Created Date Number of Fetuses Patient Bloodtype Patient rh Status Prepregnancy Weight lbs Domestic Partner Domestic Partner Phone Father Name Solar Technician Status 02/07/20 25 1 O Positive [address] Rivers OPEN Fetus Data First Name Last Name Admitted to NICU Weight (g) Sex Living Outcome Pediatric Complications Fetus ID Race Codes Race Delivery Type [id number] Problems Problem Notes Problem Name Start Date End Date Resolution Snomed Code Not e Attention deficit hyperactivity disorder 02/06/2025 514461672 stopped taking medication when found out Past history of gestational hypertension 02/06/2025 904617968 2016 pregnancys tart bASA x 2 daily Obesity 02/07/2025 188207618 testing @ 34wks Headache 02/06/2025 33537378 Mixed anxiety and depressive disorder 02/06/2025 772343270 Hypertension AND/OR vomiting complicating childbirth AND/OR puerperium 06/26/2025 155930374 Alfa Calculation Initial Alfa Date Initial Exam [...] Latest Days Gestation 0 08/14/20 25 0 Pre- Flowsheet Flowsheet Date 02/06/2025 Bunn Score Blood Edema Fundus Height Fundus Units Glucose Ketones Leukocytes Nitrite Labor Signs Protein Cervic Dilation Cervic Effacement Cervic Station neg none none trace Type Weight in lbs Pre/Post Dialysis Refused Weight 289.964960442770 BP Diastolic BP Location Tested BP Systolic [...] Weight in lbs Pre/Post Dialysis Refused Weight 294.179044577524 BP Diastolic BP Location Tested BP Systolic [...] Type Weight in lbs Pre/Post Dialysis Refused 297.836456270136 BP Diastolic BP Location Tested BP Systolic [...] Type Weight in lbs Pre/Post Dialysis Refused 302.598485637394 BP Diastolic BP Location Tested BP Systolic [...] Weight in lbs Pre/Post Dialysis Refused Weight 305.981088118490 BP Diastolic BP Location Tested BP Systolic [...] Weight in lbs Pre/Post Dialysis Refused Weight 306.498579949646 BP Diastolic BP Location Tested BP Systolic [...] Weight in lbs Pre/Post Dialysis Refused Weight 305.638674295816 BP Diastolic BP Location Tested BP Systolic [...] Weight in lbs Pre/Post Dialysis Refused Weight 307.074453257540 BP Diastolic BP Location Tested BP Systolic [...] Type Weight in lbs Pre/Post Dialysis Refused 308.213178484122 BP Diastolic BP Location Tested BP Systolic BP Type 81 L arm 132 sitting Fetus Heart Rate Present Fetus Movement A Yes Comments Flowsheet Date 07/03/2025 Bunn Score Blood Edema Fundus Height Fundus Units Glucose Ketones Leukocytes Nitrite Labor Signs Protein Cervic Dilation Cervic Effacement Cervic Station Type Weight in lbs Pre/Post Dialysis Refused 308.082437033060 BP Diastolic BP Location Tested BP Systolic [...] Present Fetus Movement Comments Flowsheet Date 07/10/2025 Ubnn Score Blood Edema Fundus Height Fundus Units Glucose Ketones Leukocytes Nitrite Labor Signs Protein Cervic Dilation Cervic Effacement Cervic Station Type Weight in lbs Pre/Post Dialysis Refused Weight 310.868979346093 BP Diastolic BP Location Tested BP Systolic BP Type 85 L arm 128 sitting Fetus Heart Rate Present Fetus Movement A Yes Comments Flowsheet Date 07/10/2025 Bunn Score Blood Edema Fundus Height Fundus Units Glucose Ketones Leukocytes Nitrite Labor Signs Protein Cervic Dilation Cervic Effacement Cervic Station Type Weight in lbs Pre/Post Dialysis Refused 310.373876104233 BP Diastolic BP Location Tested BP Systolic [...] Type Weight in lbs Pre/Post Dialysis Refused 311.410693646999 BP Diastolic BP Location Tested BP Systolic BP Type 78 L arm 130 sitting Fetus Heart Rate Present Fetus Movement A Yes Comments bpp 8/10 doing well, denies cardona visual changes, discussed [...] Weight in lbs Pre/Post Dialysis Refused Weight 312.611463390463 BP Diastolic BP Location Tested BP Systolic BP Type 84 L arm 131 sitting Fetus Heart Rate Present Fetus Movement A Yes Comments Flowsheet Date 07/24/2025 Bunn Score Blood Edema Fundus Height Fundus Units Glucose Ketones Leukocytes Nitrite Labor Signs Protein Cervic Dilation Cervic Effacement Cervic Station 1cm 50% -2 Type Weight in lbs Pre/Post Dialysis Refused Weight 312.736796961517 BP Diastolic BP Location Tested BP Systolic BP Type 84 L arm 131 sitting Fetus Heart Rate Present Fetus Movement Comments bpp 10/10 +FM, IOL planned or tuesday reviewed rec [...]
--- OUTSIDE RECORDS SUMMARY | 2025-07-26 05:55 | XMS_ITS | Patient Health Record ---
Author Organization [facility] Address [address] [place], [place] [address] Care Team Providers Care Museum Guide Name Role Phone CyrilCASTRO white Unavailable [phone] Tawanda Sanders Unavailable Unavailable Reason For Referral No Information Social History Social History Additional Details Category Social Info Options Details Migrated Social History Migrated Social History Smoking Status : Never used tobacco , History of tobacco use : Plan Of Treatment No Information Insurance Providers Payer Name Payer Address Payer Phone Subscriber Number Group Number Insured Name Patient Relationship to Insured Coverage Start Date Coverage End Date [facility] [address] [address] [place] [address] [id number] FIDEL MCGINNIS Self - patient is the insured
--- OUTSIDE RECORDS SUMMARY | 2025-07-26 05:55 | XMS_ITS | Clinical Summary ---
Author Organization [facility] Address [address] [place] [address] Care Team Providers Care Equipment Monitor Phototypesetting Name Role Phone Lobito Salinas MD Unavailable [phone] Lobito Salinas MD Primary Care Provider [phone] Allergies No known active allergies Medications PNV 39-iron jli-hqzqe-skt-d cardona 30 mg iron-1.2 mg-55 mg-265 mg capsule Take 1 capsule by mouth daily Active Active Problems Problem Noted Date Diagnosed Date Sinus tachycardia 05/28/2019 05/28/2019 Murmur, heart 05/28/2019 Mixed hyperlipidemia 05/28/2019 Family History Medical History Relation Name Comments accidental fall Father Parkinsonism Mother Relation Name Status Comments Father (Age 58) Mother Alive Social History Tobacco Use Types Packs/Day Years Used Date Smoking Tobacco: Never Smokeless Tobacco: Never Alcohol Use Standard Drinks/Week Comments Not Currently 0 (1 standard drink = 0.6 oz pur e alcohol) Personal Safety Answer Date Recorded Getting School Help Needed Not on file 11/26 Comments Unknown Sex and Gender Information Value Date Recorded Sex Assigned at Not on file Legal Sex Female 2:34 PM CDT Gender Identity Not on file Sexual Orientation Not on file Obstetrics History Para Term AB IAB SAB Ectopic Multiple Livin g Live Births 1 Date Outcome GA Total Labor Labor/2nd/3rd Weight Sex Type Anes PTL Emilee A1 A5 Name Clin Last Filed Vital Signs Vital Sign Reading Time Taken Comments Blood Pressure 116/82 05/28/2019 8:14 AM CDT Pulse 82 05/28/2019 8:14 AM CDT Temperature - - Respiratory Rate - - Oxygen Saturation 98% 05/28/2019 8:14 AM CDT Inhaled Oxygen Concentration - - Weight 129.3 kg (285 lb) 05/28/2019 8:14 AM CDT Height 170.2 cm (5' 7) 05/28/2019 8:14 AM CDT Body Mass Index 44.64 05/28/2019 8:14 AM CDT Plan of Treatment Not on file Insurance [facility] Care Teams Equipment Monitor Phototypesetting Relationship Specialty Start Date End Date Lobito Salinas MD [address] [place] [address] PCP - General Obstetrics and Gynecology 05/28/19 Lobito Salinas MD [address] [place] [address] Referring Physician Obstetrics and Gynecology 05/27/19
--- OUTSIDE RECORDS SUMMARY | 2025-07-26 05:55 | XMS_ITS | Continuity of Care Document ---
Author Organization [facility] [place] Address [address] [place] [address] Care Team Providers Care Bakery Associate Name Role Phone HA MORTON Primary Care Provider Assessment Encounter Date Assessment Date Assessment LastModified by Organization Details LastModified Time 05/15/2025 05/15/2025 Patient is _27__weeks . Discussed plan. Not available 05/15/2025 10:46:52 Plan of Treatment Reminders Order Date Submit [...] Not Available [facility] [address], [place], [address], 02/14/2025 01:55:32 02/15/20 25 02/14/2025 [UNIT Y] ANEUP LOIDY NIPT 22Q11.2 microdeletio n LOW RISK <1 in 10,000 normal Not Available [facility] [address], [place], [address], 02/14/2025 01:55:32 02/15/20 25 02/14/2025 [UNIT Y] ANEUP LOIDY NIPT sex chromosome aneuploidy NOT DETECT ED normal Not Available [facility] [address], [place], [address], 02/14/2025 01:55:32 02/15/20 25 02/14/2025 [UNIT Y] ANEUP LOIDY NIPT monosomy X LOW RISK <1 in 10,000 normal Not Available [facility] [address], [place], [address], 02/14/2025 01:55:32 02/15/20 25 02/14/2025 [UNIT Y] ANEUP LOIDY NIPT trisomy 13 LOW RISK <1 in 10,000 normal Not Available [facility] [address], [place], [address], 02/14/2025 01:55:32 02/15/20 25 02/14/2025 [UNIT Y] ANEUP LOIDY NIPT trisomy 18 LOW RISK <1 in 10,000 normal Not Available [facility] [address], [place], [address], 02/14/2025 01:55:32 02/15/20 25 02/14/2025 [UNIT Y] ANEUP LOIDY NIPT trisomy 21 LOW RISK <1 in 10,000 normal Not Available [facility] [address], [place], [address], 02/14/2025 01:55:32 02/15/20 25 02/14/2025 [UNIT Y] ANEUP LOIDY NIPT sex MALE normal Not Available [facility] [address], [place], [address], 02/14/2025 01:55:32 02/15/20 25 02/14/2025 [UNIT Y] ANEUP LOIDY NIPT gestation SINGLE TON normal Not Available [facility] [address], [place], [address], 02/14/2025 01:55:32 02/15/20 25 02/14/2025 [UNIT Y] ANEUP LOIDY NIPT for detailed report, see pdf See PDF normal Not Available [facility] [address], [place], [address], 02/14/2025 01:55:32 02/18/20 25 02/17/2025 [UNIT Y] OTTO Islas sickle cell disease/beta -thalassemia /hemoglobino pathies carrier screen NEGATI VE normal Not Available [facility] [address], [place], [address], 02/17/2025 10:24:39 02/18/20 25 02/17/2025 [UNIT Y] OTTO Islas alpha-thalas semia carrier screen NEGATI VE normal Not Available [facility] [address], [place], [address], 02/17/2025 10:24:39 02/18/20 25 02/17/2025 [UNIT Y] OTTO LANGFORD Janel cystic fibrosis carrier screen NEGATI VE normal Not Available [facility] [address], [place], [address], 02/17/2025 10:24:39 02/18/20 25 02/17/2025 [UNIT Y] OTTO LANGFORD Janel spinal muscular atrophy carrier screen NEGATI VE 2 SMN1 copies , SNP not presen t normal Not Available [facility] [address], [place], [address], 02/17/2025 10:24:39 02/18/20 25 02/17/2025 [UNIT Y] OTTO LANGFORD Janel for detailed report, see pdf See PDF normal Not Available [facility] [address], [place], [address], 02/17/2025 10:24:39 02/07/20 25 02/06/2025 CBC W/DIF F WBC 12.0 10'3/ uL 3.5-10 .[address] [facility] (Lab) [address], [place], [address], 02/07/2025 13:12:55 02/07/20 25 02/06/2025 CBC W/DIF F RBC 4.52 10'6/ uL (based on docume nted legal sex) 3.80-[address] [facility] (Lab) [address] , [place], [address], 02/07/2025 13:12:55 02/07/20 25 02/06/2025 CBC W/DIF F HGB 12.4 g/dL (based on docume nted legal sex) 11.6-[address] [facility] (Lab) [address], [place], [address], 02/07/2025 13:12:55 02/07/20 25 02/06/2025 CBC W/DIF F HCT 38.9 % (based on docume nted legal sex) 34.0-[address] [facility] (Lab) [address], [place], [address], 02/07/2025 13:12:55 02/07/20 25 02/06/2025 CBC W/DIF F MCV 86.1 fL 80.0-[address] [facility] (Lab) [address], [place], [address], 02/07/2025 13:12:55 02/07/20 25 02/06/2025 CBC W/DIF F MCH 27.4 pg 27.0-[address] [facility] (Lab) [address], [place], [address], 02/07/2025 13:12:55 02/07/20 25 02/06/2025 CBC W/DIF F MCHC 31.9 g/dL 32.0-3 5.[address] [facility] (Lab) [address], [place], [address], 02/07/2025 13:12:55 02/07/20 25 02/06/2025 CBC W/DIF F RDW 12.9 % 11.0-[address] [facility] (Lab) [address], [place], [address], 02/07/2025 13:12:55 02/07/20 25 02/06/2025 CBC W/DIF F plt 281 10'3/ uL 150-[address] [facility] (Lab) [address], [place], [address], 02/07/2025 13:12:55 02/07/20 25 02/06/2025 CBC W/DIF F MPV 11.0 fL 8.8-[address] [facility] (Lab) [address], [place], [address], 02/07/2025 13:12:55 02/07/20 25 02/06/2025 CBC W/DIF F NRBC's 0.0 % 0.[address] [facility] (Lab) [address], [place], [address], 02/07/2025 13:12:55 02/07/20 25 02/06/2025 CBC W/DIF F absolute NRBCs 0.0 10'3/ uL no refere nce range establ ished Not Available [facility] (Lab) [address], [place], [address], 02/07/2025 13:12:55 02/07/20 25 02/06/2025 CBC W/DIF F neutrophils 72.5 % 34.0-[address] [facility] (Lab) [address], [place], [address], 02/07/2025 13:12:55 02/07/20 25 02/06/2025 CBC W/DIF F lymphocytes 20.4 % 15.0-[address] [facility] (Lab) [address], [place], [address], 02/07/2025 13:12:55 02/07/20 25 02/06/2025 CBC W/DIF F monocytes 5.9 % 1.0-[address] [facility] (Lab) [address] [facility], [place], [address], 02/07/2025 13:12:55 02/07/20 25 02/06/2025 CBC W/DIF F eosinophils 0.6 % 0.0-8. [address] [facility] (Lab) [address] [place], [address], 02/07/2025 13:12:55 02/07/20 25 02/06/2025 CBC W/DIF F basophils 0.3 % 0.0-2. [address] [facility] (Lab) [address], [place], [address], 02/07/2025 13:12:55 02/07/20 25 02/06/2025 CBC W/DIF [...] separ ately if prese nt. Not Available [facility] (Lab) [address] [facility], [place], [address], 02/07/2025 13:12:55 02/07/20 25 02/06/2025 CBC W/DIF F absolute neutrophils 8.7 10'3/ uL 1.5-8. [address] [facility] (Lab) [address] , [place], [address], 02/07/2025 13:12:55 02/07/20 25 02/06/2025 CBC W/DIF F absolute lymphocytes 2.4 10'3/ uL 1.0-4. [address] [facility] (Lab) [address] [facility], [place], [address], 02/07/2025 13:12:55 02/07/20 25 02/06/2025 CBC W/DIF F absolute monocytes 0.7 10'3/ uL 0.2-1. [address] [facility] (Lab) [address] [facility], [place], [address], 02/07/2025 13:12:55 02/07/20 25 02/06/2025 CBC W/DIF F absolute eosinophils 0.1 10'3/ uL 0.0-0. [address] [facility] (Lab) [address] [facility], [place], [address], 02/07/2025 13:12:55 02/07/20 25 02/06/2025 CBC W/DIF F absolute basophils 0.0 10'3/ uL 0.0-0. [address] [facility] (Lab) [address] [facility], [place], [address], 02/07/2025 13:12:55 02/07/2002/06/2025 CBC W/DIF F absolute [...] bhand book. nm.or g/gen derx Not Available [facility] (Lab) [address] [facility], [place], [address], 02/07/2025 13:12:55 02/07/2002/06/2025 HEPAT ITIS B SURFA CE ANTIG EN hepatitis B surface antigen Non-re active non-re active This assay was perfo rmed using [employer] ratio n reage nts and test kits. Value s obtai dexter with other assay metho ds or kits canno t be used inter lopez eably . Not Available [facility] (Lab) [address] [facility], [place], [address], 02/07/2025 13:12:55 02/07/2002/06/2025 HIV 1/2 ANTIG EN/AN TIBOD Y, REFLE X CONFI RMATI ON HIV antigen/anti body Nonrea ctive nonrea ctive HIV-1 antig en and HIV-1 /HIV- 2 antib odies were not detec ruy. No labor atory evide nce of HIV infec tion. Not Available [facility] (Lab) [address] [facility], [place], [address], 02/07/2025 13:12:56 02/07/2002/06/2025 HEPAT ITIS C ANTIB ANITA SCREE N, REFLE X TO CONFI RMATI ON hepatitis C antibody Non-re active non-re active Antib odies to HCV Not Detec ruy, does not exclu de the possi bilit y of expos ure to HCV. Not Available [facility] (Lab) [address] [facility], [place], [address], 02/07/2025 13:12:56 02/07/20 25 02/06/2025 RUBEL LA IGG ANTIB ANITA, QUANT rubella antibodies, IgG Reacti ve reacti ve Not Available [facility] (Lab) [address] [facility], [place], [address], 02/07/2025 13:12:56 02/07/20 25 02/06/2025 RUBEL LA IGG ANTIB ANITA, QUANT rubella antibodies, IgG quant 61.9 IU/mL >=10 Non-r eacti ve (Non- Immun e) <10 IU/mL React essie (Immu ne) > or = 10 IU/mL Not Available [facility] (Lab) [address] [facility], [place], [address], 02/07/2025 13:12:56 02/07/2002/06/2025 TYPE/ RH/SC REEN ABO/Rh type O POS Not Available [facility] (Lab) [address] [facility], [place], [address], 02/07/2025 13:12:57 02/07/2002/06/2025 TYPE/ RH/SC REEN antibody screen NEG Not Available [facility] (Lab) [address] [facility], [place], [address], 02/07/2025 13:12:57 02/07/2002/06/2025 TYPE/ RH/SC REEN exp date 2024 23:[address] [facility] (Lab) [address] [facility], [place], [address], 02/07/2025 13:12:57 02/07/20 02/06/2025 RPR SCREE N, REFLE X TITER /CONF IRMAT ION RPR qualitative Nonrea ctive nonrea ctive Not Available [facility] (Lab) [address] [facility], [place], [address], 02/07/2025 13:12:57 02/07/20 25 02/06/2025 HEMOG LOBIN [...] >8.0% Actio n sugge sted Not Available [facility] (Lab) [address] [facility], [place], [address], 02/07/2025 13:12:57 02/07/2002/06/2025 CULTU RE: URINE result report SEE RESULT S BELOW Test: Cultu re: Urine Speci men Sourc e: Urine - Clean Catch Speci men Type: Urine Speci men Date: 2024 1737 Resul t Date: 2024 0700 Resul t Statu s: Final resul t Abnor mal: No Resul ting Lab: [facility] [address] [facility] [address] Tel: [phone] CULTU RE ----- ----- ----- --- Cultu re resul t (>=3 organ isms prese nt) indic ates possi ble conta minat ion. Repea t cultu re if sympt oms indic ate. Not Available [facility] (Lab) [address] [facility], [place], [address], 02/08/2025 08:03:32 02/07/20 25 02/06/2025 drug scree n, urine Amphetamines : negati ve Not Available [place] [address], [place], [address], 02/06/2025 18:30:19 02/07/20 25 02/06/2025 drug scree n, urine Cannabinoids : negati ve Not Available [facility] [address], [place], [address], 02/06/2025 18:30:19 02/07/20 25 02/06/2025 drug scree n, urine Cocaine: negati ve Not Available [facility] [address], [place], [address], 02/06/2025 18:30:19 02/07/20 25 02/06/2025 drug scree n, urine Opiates: negati ve Not Available [facility] [address], [place], [address], 02/06/2025 18:30:19 02/07/20 25 02/06/2025 drug scree n, urine Phenocyclidi ne: negati ve Not Available [facility] [address], [place], [address], 02/06/2025 18:30:19 02/07/20 25 02/06/2025 drug scree n, urine Barbiturates : negati ve Not Available [facility] [address], [place], [address], 02/06/2025 18:30:19 02/07/20 25 02/06/2025 drug scree n, urine Benzodiazepi brayan: negati ve Not Available [facility] [address], [place], [address], 02/06/2025 18:30:19 02/07/20 25 02/06/2025 drug scree n, urine Ethanol: negati ve Not Available [facility] [address], [place], [address], 02/06/2025 18:30:19 02/07/2002/06/2025 drug scree n, urine Hallucinogen s: negati ve Not Available [facility] [address], [place], [address], 02/06/2025 18:30:19 02/07/20 25 02/06/2025 drug scree n, urine Inhalants: negati ve Not Available [facility] [address], [place], [address], 02/06/2025 18:30:19 02/07/20 25 02/06/2025 drug scree n, urine Anabolic Steroids: negati ve Not Available [facility] [address], [place], [address], 02/06/2025 18:30:19 02/07/20 25 02/06/2025 drug scree n, urine Other: negati ve Not Available [facility] [address], [place], [address], 02/06/2025 18:30:19 05/15/20 25 05/15/2025 HEMOG LOBIN (HGB) HGB 10.9 g/dL (based on docume nted legal sex) 11.6-1 [address] [facility] (Lab) [address] [place], [address], 05/16/2025 09:55:38 05/15/20 25 05/15/2025 HEMAT OCRIT (HCT) HCT 35.7 % (based on docume nted legal sex) 34.0-[address] [facility] (Lab) [address] , [place], [address], 05/16/2025 09:55:39 05/15/20 25 05/15/2025 CBC W/DIF F WBC 14.6 10'3/ uL 3.5-10 .[address] [facility] (Lab) [address], [place], [address], 05/16/2025 09:55:39 05/15/2005/15/2025 CBC W/DIF F RBC 4.01 10'6/ uL (based on docume nted legal sex) 3.80-[address] [facility] (Lab) [address], [place], [address], 05/16/2025 09:55:39 05/15/2005/15/2025 CBC W/DIF F HGB 10.9 g/dL (based on docume nted legal sex) 11.6-1 5.[address] [facility] (Lab) [address], [place], [address], 05/16/2025 09:55:39 05/15/2005/15/2025 CBC W/DIF F HCT 35.7 % (based on docume nted legal sex) 34.0-[address] [facility] (Lab) [address], [place], [address], 05/16/2025 09:55:39 05/15/2005/15/2025 CBC W/DIF F MCV 89.0 fL 80.0-[address] [facility] (Lab) [address], [place], [address], 05/16/2025 09:55:39 05/15/2005/15/2025 CBC W/DIF F MCH 27.2 pg 27.0-[address] [facility] (Lab) [address], [place], [address], 05/16/2025 09:55:39 05/15/2005/15/2025 CBC W/DIF F MCHC 30.5 g/dL 32.0-3 5.5 low Not Available [facility] (Lab) [address], [place], [address], 05/16/2025 09:55:39 05/15/2005/15/2025 CBC W/DIF F RDW 14.5 % 11.0-[address] [facility] (Lab) [address], [place], [address], 05/16/2025 09:55:39 05/15/2005/15/2025 CBC W/DIF F plt 218 10'3/ uL 150-[address] [facility] (Lab) [address], [place], [address], 05/16/2025 09:55:39 05/15/2005/15/2025 CBC W/DIF F MPV 11.1 fL 8.8-[address] [facility] (Lab) [address], [place], [address], 05/16/2025 09:55:39 05/15/2005/15/2025 CBC W/DIF F NRBC's 0.0 % 0.[address] [facility] (Lab) [address], [place], [address], 05/16/2025 09:55:39 05/15/2005/15/2025 CBC W/DIF F absolute NRBCs 0.0 10'3/ uL no refere nce range establ ished Not Available [facility] (Lab) [address], [place], [address], 05/16/2025 09:55:39 05/15/2005/15/2025 CBC W/DIF F neutrophils 78.7 % 34.0-7 3.[address] [facility] (Lab) [address], [place], [address], 05/16/2025 09:55:39 05/15/2005/15/2025 CBC W/DIF F lymphocytes 15.0 % 15.0-[address] [facility] (Lab) [address] [facility], [place], [address], 05/16/2025 09:55:39 05/15/2005/15/2025 CBC W/DIF F monocytes 4.9 % 1.0-[address] [facility] (Lab) [address] [facility], [place], [address], 05/16/2025 09:55:39 05/15/2005/15/2025 CBC W/DIF F eosinophils 0.6 % 0.0-8. [address] [facility] (Lab) [address] [facility], [place], [address], 05/16/2025 09:55:39 05/15/2005/15/2025 CBC W/DIF F basophils 0.3 % 0.0-2. [address] [facility] (Lab) [address] [facility], [place], [address], 05/16/2025 09:55:39 05/15/2005/15/2025 CBC W/DIF F immature granulocytes 0.5 % no define d refere nce range Immat ure Granu locyt es (IG) repre sents autom ated enume ratio n of Metam yeloc ytes, Myelo cytes and Promy elocy shlomo when IG is < 5%. Blast s are not inclu ded in IG and repor ruy separ ately if prese nt. Not Available [facility] (Lab) [address] [facility], [place], [address], 05/16/2025 09:55:39 05/15/2005/15/2025 CBC W/DIF F absolute neutrophils 11.4 10'3/ uL 1.5-8. [address] [facility] (Lab) [address] [facility], [place], [address], 05/16/2025 09:55:39 05/15/2005/15/2025 CBC W/DIF F absolute lymphocytes 2.2 10'3/ uL 1.0-4. [address] [facility] (Lab) [address] [facility], [place], [address], 05/16/2025 09:55:39 05/15/2005/15/2025 CBC W/DIF F absolute monocytes 0.7 10'3/ uL 0.2-1. [address] [facility] (Lab) [address] [facility], [place], [address], 05/16/2025 09:55:39 05/15/2005/15/2025 CBC W/DIF F absolute eosinophils 0.1 10'3/ uL 0.0-0. [address] [facility] (Lab) [address] [facility], [place], [address], 05/16/2025 09:55:39 05/15/2005/15/2025 CBC W/DIF F absolute basophils 0.1 10'3/ uL 0.0-0. [address] [facility] (Lab) [address] [facility], [place], [address], 05/16/2025 09:55:39 05/15/2005/15/2025 CBC W/DIF F absolute [...] hyman book. nm.or g/gen derx Not Available [facility] (Lab) [address] , [place], [address], 05/16/2025 09:55:39 05/15/2005/15/2025 GTT - GESTA KHANH Islas, ACOG OB glucose, 1 hour screen 115 mg/dL 70-[address] [facility] (Lab) [address] [facility], [place], [address], 05/16/2025 09:55:40 05/15/20 25 05/15/2025 URIC ACID uric acid 4.1 mg/dL 2.3-6. [address] [facility] (Lab) [address] [place], [address], 05/16/2025 09:55:40 05/15/20 25 05/15/2025 CMP(C OMPRE HENSI VE METAB OLIC PANEL ) sodium 138 mmol/ L 133-[address] [facility] (Lab) [address] [facility], [place], [address], 05/16/2025 09:55:41 05/15/20 25 05/15/2025 CMP(C OMPRE HENSI VE METAB OLIC PANEL ) potassium 4.1 mmol/ L 3.5-5. [address] [facility] (Lab) [address] [facility], [place], [address], 05/16/2025 09:55:41 05/15/20 25 05/15/2025 CMP(C OMPRE HENSI VE METAB OLIC PANEL ) chloride 104 mmol/ L 98-[address] [facility] (Lab) [address] [place], [address], 05/16/2025 09:55:41 05/15/20 25 05/15/2025 CMP(C OMPRE HENSI VE METAB OLIC PANEL ) carbon dioxide 24 mmol/ L 21-[address] [facility] (Lab) [address] [place], [address], 05/16/2025 09:55:41 05/15/20 25 05/15/2025 CMP(C OMPRE HENSI VE METAB OLIC PANEL ) anion gap 10 mmol/ L 4-[address] [facility] (Lab) [address] [place], [address], 05/16/2025 09:55:41 05/15/20 25 05/15/2025 CMP(C OMPRE HENSI VE METAB OLIC PANEL ) blood urea nitrogen 7 mg/dL 7-[address] [facility] (Lab) [address] [facility], [place], [address], 05/16/2025 09:55:41 05/15/2005/15/2025 CMP(C OMPRE HENSI VE METAB OLIC PANEL ) creatinine 0.55 mg/dL 0.60-1 [address] [facility] (Lab) [address] [facility], [place], [address], 05/16/2025 09:55:41 05/15/2005/15/2025 CMP(C OMPRE HENSI VE METAB OLIC PANEL ) egfrcr (CKD-epi 2020) >90 mL/mi n/1.7 3_m2 >=[address] [facility] (Lab) [address] [facility], [place], [address], 05/16/2025 09:55:41 05/15/20 25 05/15/2025 CMP(C OMPRE HENSI VE METAB OLIC PANEL ) calcium 8.7 mg/dL 8.3-[address] [facility] (Lab) [address] [place], [address], 05/16/2025 09:55:41 05/15/20 25 05/15/2025 CMP(C OMPRE HENSI VE METAB OLIC PANEL ) glucose 115 mg/dL 70-[address] [facility] (Lab) [address] [place], [address], 05/16/2025 09:55:41 05/15/20 25 05/15/2025 CMP(C OMPRE HENSI VE METAB OLIC PANEL ) protein, total 5.7 g/dL 6.4-8. [address] [facility] (Lab) [address] [facility], [place], [address], 05/16/2025 09:55:41 05/15/20 25 05/15/2025 CMP(C OMPRE HENSI VE METAB OLIC PANEL ) albumin 3.1 g/dL 3.5-5. [address] [facility] (Lab) [address] [facility], [place], [address], 05/16/2025 09:55:41 05/15/2005/15/2025 CMP(C OMPRE HENSI VE METAB OLIC PANEL ) ALT 9 units /L 9-[address] [facility] (Lab) [address] [facility], [place], [address], 05/16/2025 09:55:41 05/15/2005/15/2025 CMP(C OMPRE HENSI VE METAB OLIC PANEL ) alkaline phosphatase 114 units /L 34-[address] [facility] (Lab) [address] [facility], [place], [address], 05/16/2025 09:55:41 05/15/20 25 05/15/2025 CMP(C OMPRE HENSI VE METAB OLIC PANEL ) AST 11 units /L 13-[address] [facility] (Lab) [address] [facility], [place], [address], 05/16/2025 09:55:41 05/15/2005/15/2025 CMP(C OMPRE HENSI VE METAB OLIC PANEL ) bilirubin, total 0.3 mg/dL 0.2-1. [address] [facility] (Lab) [address] [facility], [place], [address], 05/16/2025 09:55:41 05/15/2005/15/2025 HIV 1/2 ANTIG EN/AN TIBOD Y, REFLE X CONFI RMATI ON HIV antigen/anti body Nonrea ctive nonrea ctive HIV-1 antig en and HIV-1 /HIV- 2 antib odies were not detec ruy. No labor atory evide nce of HIV infec tion. Not Available [facility] (Lab) [address] [facility], [place], [address], 05/16/2025 09:55:41 05/15/20 25 05/15/2025 PROTE IN/CR EATIN INE RATIO , URINE creatinine, urine 13.0 mg/dL R-No refer ence range estab lishe d for this assay Not Available [facility] (Lab) [address] [facility], [place], [address], 05/16/2025 09:55:42 05/15/20 25 05/15/2025 PROTE IN/CR EATIN INE RATIO , URINE protein, urine <4 mg/dL R-No refer ence range estab lishe d for this assay Not Available [facility] (Lab) [address] [facility], [place], [address], 05/16/2025 09:55:42 05/15/20 25 05/15/2025 PROTE IN/CR [...] fican t prote inuri a. Not Available [facility] (Lab) [address] [facility], [place], [address], 05/16/2025 09:55:42 05/15/20 25 05/15/2025 RPR SCREE N, REFLE X TITER /CONF IRMAT ION RPR qualitative Nonrea ctive nonrea ctive Not Available [facility] (Lab) [address] [facility], [place], [address], 05/16/2025 09:55:42 02/07/20 25 02/06/2025 US, obste tric, nucha l trans lucen cy No observ ation record ed. [email or web address] [place] [address], [place], [address], 02/06/2025 17:26:10 02/07/20 25 02/06/2025 US, obste tric, follo w-up No observ ation record ed. [email or web address] Vivi [address], [place], [address], 02/07/2025 11:49:39 03/27/20 25 03/27/2025 US, obste tric, 2nd or 3rd trime ster No observ ation record ed. [email or web address] [place] [address], [place], [address], 03/27/2025 16:50:03 03/27/20 25 03/27/2025 US, obste tric, 2nd or 3rd trime ster No observ ation record ed. [email or web address] Vivi [address], [place], [address], 04/01/2025 20:55:55 04/24/20 25 04/24/2025 US, obste tric, follo w-up No observ ation record ed. [email or web address] [address], [place], [address], 04/24/2025 18:50:20 04/24/20 25 04/24/2025 US, obste tric, follo w-up No observ ation record ed. [email or web address] Vivi [address], [place], [address], 05/02/2025 18:12:06 05/05/20 25 05/05/2025 US, obste tric, limit ed No observ ation record ed. [place] [id number], [place], [address], 05/08/2025 11:23:32 05/05/20 25 05/05/2025 US, obste tric, limit ed No observ ation record ed. [email or web address] [facility] [address], [place], [address], 05/08/2025 11:23:15 05/06/2005/05/2025 non-s tress test No observ ation record ed. [facility] [address], [place], [address], 05/14/2025 16:17:57 06/12/2006/12/2025 US, obste tric, follo w-up No observ ation record ed. [email or web address] [place] [address], [place], [address], 06/12/2025 13:37:49 06/12/2006/12/2025 US, opal tric, follo w-up No observ ation record ed. [email or web address] Vivi [address], [place], [address], 06/14/2025 12:40:46 06/26/2006/26/2025 non-s tress test No observ ation record ed. [email or web address] [place] [address], [place], [address], 06/26/2025 17:40:02 06/26/20 non-s tress test No observ ation record ed. [email or web address] [place] [address], [place], [address], 06/26/2025 17:40:25 07/03/2007/03/2025 US, opal lemos bioph ysica l profi le + non-s tress test No observ ation record ed. [email or web address] [place] [address], [place], [address], 07/03/2025 10:21:51 07/03/2007/03/2025 US, obste tric, bioph ysica l profi le + non-s tress test No observ ation record ed. [email or web address] Vivi [address], [place], [address], 07/03/2025 10:36:03 07/03/2007/03/2025 non-s tress test No observ ation record ed. [address], [place], [address], 07/03/2025 17:34:00 07/03/20 non-s tress test No observ ation record ed. [address], [place], [address], 07/03/2025 16:02:31 07/10/2007/10/2025 US, obste tric, follo w-up No observ ation record ed. [email or web address] Vivi [address], [place], [address], 07/10/2025 11:53:53 07/10/2007/10/2025 US, obste tric, follo w-up No observ ation record ed. [facility] [address], [place], [address], 07/10/2025 13:24:28 07/10/2007/10/2025 US, obste tric, bioph ysica l profi le + non-s tress test No observ ation record ed. [facility] [address], [place], [address], 07/10/2025 13:24:41 07/10/2007/10/2025 non-s tress test No observ ation record ed. [address], [place], [address], 07/10/2025 16:54:42 07/10/20 non-s tress test No observ ation record ed. [email or web address] [place] [address], [place], [address], 07/10/2025 16:55:51 07/17/2007/17/2025 non-s tress test No observ ation record ed. [email or web address] [place] [address], [place], [address], 07/19/2025 11:50:49 07/17/20 non-s tress test No observ ation record ed. [place] [address], [place], [address], 07/17/2025 10:56:47 07/17/2007/17/2025 US, obste tric, bioph ysica l profi le + non-s tress test No observ ation record ed. [email or web address] [place] [address], [place], [address], 07/17/2025 13:24:17 07/17/2007/17/2025 US, obste tric, bioph ysica l profi le + non-s tress test No observ ation record ed. [email or web address] Vivi [address], [place], [address], 07/17/2025 11:37:56 07/24/2007/24/2025 US, obste tric, bioph ysica l profi le + non-s tress test No observ ation record ed. [email or web address] Vivi [address], [place], [address], 07/24/2025 11:16:54 07/24/20 25 07/24/2025 US, obste tric, bioph ysica l profi le + non-s tress test No observ ation record ed. [email or web address] [place] [address], [place], [address], 07/24/2025 18:17:48 07/24/20 25 07/24/2025 non-s tress test No observ ation record ed. [facility] [address], [place], [address], 07/24/2025 18:19:09 07/24/20 25 non-s tress test No observ ation record ed. [address], [place], [address], 07/24/2025 16:00:08 Result Notes None recorded. 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 0 17:56:19 Obesity 250382063 Completed 201409/03/2020 Obesity, unspecif ied;Prac bronson ID: 0001 Beverley lopez [facility] 0 14:20:47 Speciali zed medical examinat ion Completed 201409/02/2020 Routine gynecolo gical examinat ion;Prac bronson ID: 0001 Beverley lopez [facility] 0 17:57:40 Screenin g for malignan t neoplasm of cervix Completed 201409/02/2020 Pap Smear;Pr actice ID: 0001 Beverley lopez [facility] 0 17:56:38 Educatio n Completed 201409/02/2020 Family planning ;Recorde d Elsewher e: No Locat ion: [facility] S ource: EHR Hospitalist Program Director elena: N Practi ce ID: 0001 Grabiel lable Time: 04:00:00 PM Beverley Sun jessica, [facility] 0 17:55:08 Female infertil ity 3056629 Completed 201410/17/2020 Infertil ity, female, of unspecif ied origin;P ractice ID: 0001 Beverley Sun jessica, [facility] 1 10:55:45 Body mass index 30+ - obesity 923248697 Completed 201510/17/2020 Body mass index (BMI) 39.0-39. 9, adult;Re corded Elsewher e: No [facility]: EHR Hospitalist Program Director elena: N Practi ce ID: 0001 Grabiel lable Time: 11:00:00 AM Beverley Sun jessica [facility] 1 10:55:40 Syncope and collapse 788055953 Completed 201510/17/2020 Syncope and collapse ;Recorde d Elsewher e: No Locat ion: [facility] S ource: EHR Hospitalist Program Director elena: N Practi ce ID: 0001 Grabiel lable Time: 10:30:00 AM Beverley Sun jessica [facility] 1 10:56:12 Gestatio n less than 9 weeks 289547951 Completed 201509/02/2020 Less than 8 weeks gestatio n of pregnanc y;Practi ce ID: 0001 Beverley Sun jessica, [facility] 0 17:55:27 Pregnanc y, childbir th and puerperi um finding Completed 201510/17/2020 Encntr for suprvsn of normal first preg, first trimeste r;Practi ce ID: 0001 Beverley lopez, [facility] 1 10:55:59 Gestatio n period, 12 weeks 76932361 Completed 201509/02/2020 12 weeks gestatio n of pregnanc y;Practi ce ID: 0001 Beverley lopez, [facility] 0 17:55:30 Pregnanc y, childbir th and puerperi um finding Completed 201509/02/2020 Encntr for suprvsn of normal first preg, second trimeste r;Practi ce ID: 0001 Beverley lopez, [facility] 0 17:56:27 Gestatio n period, 32 weeks 7210364 Completed 201509/02/2020 32 weeks gestatio n of pregnanc y;Practi ce ID: 0001 Beverley lopez, [facility] 0 17:55:35 Pregnanc y, childbir th and puerperi um finding Completed 201509/03/2020 Encounte r for supervis ion of normal first pregnanc y, third trimeste r;Record ed Elsewher e: No Locat ion: [facility] S ource: EHR Hospitalist Program Director elena: N Practi ce ID: 0001 Grabiel lable Time: 05:30:00 PM Beverley lopez [facility] 0 14:20:36 Gestatio n period, 33 weeks 30953585 Completed 201509/02/2020 33 weeks gestatio n of pregnanc y;Record ed Elsewher e: No Locat ion: [facility] S ource: EHR Hospitalist Program Director elena: N Practi ce ID: 0001 Grabiel lable Time: 09:00:00 AM Beverley lopez [facility] 0 17:55:39 Normal pregnanc y in multigra [place] 0507744139 26833 Completed 201509/02/2020 Encounte r for suprvsn of normal pregnanc y, third trimeste r;Practi ce ID: 0001 Beverley lopez, [facility] 0 17:56:11 Gestatio n period, 34 weeks 62280380 Completed 201509/02/2020 34 weeks gestatio n of pregnanc y;Practi ce ID: 0001 Beverley lopez, [facility] 0 17:55:42 Pregnanc y-induce d hyperten tonya Completed 201503/27/2021 Gestatio nal htn w/o signific ant proteinu che, third trimeste r;Record ed Elsewher e: No Locat ion: [facility] S ource: EHR Hospitalist Program Director elena: N Practi ce ID: 0001 Grabiel lable Time: 03:00:00 PM Beverley lopez, [facility] 1 16:36:34 Gestatio n period, 36 weeks 01002750 Completed 201509/02/2020 36 weeks gestatio n of pregnanc y;Practi ce ID: 0001 Beverley lopez, [facility] 0 17:55:48 Single live from singleto n pregnanc y 925473805 Completed 201509/03/2020 Single live ;Pr actice ID: 0001 Beverley lopez, [facility] 0 14:20:54 Gestatio n period, 37 weeks 50003651 Completed 201509/02/2020 37 weeks gestatio n of pregnanc y;Practi ce ID: 0001 Beverley lopez, [facility] 0 17:55:50 Pregnanc y-induce d hyperten tonya Completed 201509/02/2020 Gestatio nal htn w/o signific ant proteinu che, unsp trimeste r;Practi ce ID: 0001 Beverley lopez, [facility] 0 17:57:29 Hyperten sive disorder 38643126 Completed 201503/27/2021 Benign hyperten tonya;Rec orded Elsewher e: No Locat ion: [facility] S ource: EHR Hospitalist Program Director elena: N Practi ce ID: 0001 Grabiel lable Time: 10:30:00 AM Beverley Corinne jessica, [facility] 5 19:18:30 Non-prot einuric hyperten tonya of pregnanc y 722828292 Completed 201510/17/2020 Gestatnl htn without signific ant protein, comp the puerp;Pr actice ID: 0001 Beverley Sun jessica, [facility] 1 10:56:02 Lochia finding Completed 201510/17/2020 Encounte r for routine postpart um follow-u p;Practi ce ID: 0001 Beverley Sun [facility], [facility] 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 0 17:56:45 Pregnanc y detectio n examinat ion Completed 201809/02/2020 Encounte r for pregnanc y test, result positive ;Practic e ID: 0001 Beverley Sun jessica [facility] 0 17:56:17 Uterine size for dates discrepa ncy Completed 201810/17/2020 Uterine size-malia e discrepa ncy, first trimeste r;Practi ce ID: 0001 Beverley Sun jessica, [facility] 1 10:56:17 Secondar y amenorrh ea 165033038 Completed 201810/17/2020 Secondar y amenorrh ea;Recor ded Elsewher e: No Locat ion: [facility] S ource: EHR Hospitalist Program Director elena: N Practi ce ID: 0001 Grabiel lable Time: 10:30:00 AM Beverley Sun jessica, [facility] 1 10:56:05 Infectio n screenin g Completed 201809/02/2020 Encounte r for screenin g for oth infec/pa rastc diseases ;Recorde d Elsewher e: No Locat ion: [facility] N Practi ce ID: 0001 Grabiel lable Time: 10:30:00 AM Beverley Sun [facility], [facility] 0 17:56:03 Syphilis test finding 052517872 Completed 201809/03/2020 Encntr screen for infectio ns w sexl mode of transmis s;Record ed Elsewher e: No Locat ion: [facility] S ource: EHR Hospitalist Program Director elena: N Practi ce ID: 0001 Grabiel lable Time: 10:30:00 AM Beverley Sun jessica, [facility] 0 14:20:58 Finding of viabilit y of pregnanc y 415099206 Completed 201809/02/2020 Pregnanc y w inconclu sive viabilit y, unsp;Pra ctice ID: 0001 Beverley Sun jessica, [facility] 0 17:55:21 Finding of contents of cervix 189496927 Completed 201809/02/2020 Weeks of gestatio n of pregnanc y not specifie d;Practi ce ID: 0001 Beverley Sun jessica, [facility] 0 17:55:14 Threaten ed miscarri age 96075935 Completed 201810/17/2020 Threaten ed ;Recorde d Elsewher e: No Locat ion: [facility] S ource: EHR Hospitalist Program Director elena: N Practi ce ID: 0001 Grabiel lable Time: 12:30:00 PM Beverley lopez, [facility] 1 10:56:15 Gestatio n period, 8 weeks 48406113 Completed 201809/02/2020 8 weeks gestatio n of pregnanc y;Practi ce ID: 0001 Beverley Sun [facility], [facility] 0 17:55:55 Rubella screenin g status 569992482 Completed 201809/02/2020 Encounte r for antenata l screenin g, unspecif ied;Benitez rded Elsewher e: No [facility]: EHR Hospitalist Program Director elena: N Practi ce ID: 0001 Grabiel lable Time: 04:30:00 PM Beverley lopez, [facility] 0 17:56:34 Antenata l screenin g Completed 201809/02/2020 Encounte r for antenata l screenin g for nuchal transluc ency;Pra ctice ID: 0001 Beverley lopez, [facility] 0 17:57:11 Antenata l screenin g for malforma tion Completed 201809/02/2020 Encounte r for antenata l screenin g for malforma tions;Re corded Elsewher e: No Locat ion: [facility] S ource: EHR Hospitalist Program Director elena: N Practi ce ID: 0001 Grabiel lable Time: 08:15:00 AM Beverley lopez, [facility] 0 17:57:13 Gestatio n period, 29 weeks [id number] Completed 201809/02/2020 29 weeks gestatio n of pregnanc y;Record ed Elsewher e: No Locat ion: [facility] S ource: EHR Hospitalist Program Director elena: N Mathieuti ce ID: 0001 Grabiel lable Time: 03:45:00 PM Beverley lopez, [facility] 0 17:55:32 Clinical finding Completed 201810/17/2020 Tachycar rishi, unspecif ied;Benitez rded Elsewher e: No Locat ion: [facility] S ource: EHR Hospitalist Program Director elena: N Practi ce ID: 0001 Grabiel lable Time: 11:15:00 AM Beverley Dos Santostz jessica, [facility] 1 10:55:44 Clinical finding Completed 201809/02/2020 Obesity, unspecif ied;Benitez rded Elsewher e: No [facility]at ion[facility] S ource: EHR Hospitalist Program Director elena: N Mathieuti ce ID: 0001 Grabiel lable Time: 03:00:00 PM Beverley Sun jessica, [facility] 0 17:55:24 Finding of body mass index 275299598 Completed 201809/02/2020 Body mass index (BMI) 40.0-44. 9, adult;Re corded Elsewher e: No Locat ion: [facility] S ource: EHR Hospitalist Program Director elena: N Practi ce ID: 0001 Grabiel lable Time: 02:00:00 PM Beverley Dos Santostz jessica, [facility] 0 17:56:59 Gestatio n period, 35 weeks 91128159 Completed 201809/02/2020 35 weeks gestatio n of pregnanc y;Record ed Elsewher e: No Locat ion: [facility] S ource: EHR Hospitalist Program Director elena: N Practi ce ID: 0001 Grabiel lable Time: 02:00:00 PM Beverley Sun jessica, [facility] 0 17:55:44 Severe obesity complica ting pregnanc y 2142626856 1740142 Completed 201810/17/2020 Obesity complica ting pregnanc y, third trimeste r;Record ed Elsewher e: No Locat ion: [facility] S ource: EHR Hospitalist Program Director elena: N Practi ce ID: 0001 Grabiel lable Time: 03:00:00 PM Beverley lopez [facility] 1 10:56:10 Gestatio n period, 38 weeks 15497242 Completed 201809/02/2020 38 weeks gestatio n of pregnanc y;Record ed Elsewher e: No Locat ion: [facility] S ource: EHR Hospitalist Program Director elena: N Practi ce ID: 0001 Grabiel lable Time: 11:00:00 AM Beverley lopez, [facility] 0 17:55:53 Hyperten tonya in the obstetri c context Completed 201810/17/2020 Pre-exis ting essentia l htn comp pregnanc y, third trimeste r;Practi ce ID: 0001 Beverley Sun [facility], [facility] 1 10:55:52 Attentio n deficit hyperact ivity disorder 356764508 Active 2024 stopped taking medicati on when found out Beverley lopez [facility] 5 19:38:30 Mixed anxiety and depressi ve disorder 052717446 Active 2024 Beverley lopez [facility] 5 19:37:00 Hyperten sive disorder 55475640 Active 2024 Medina Whitaker CNM [address], [place], [address], [facility] 17:26:39 Headache 62754183 Active 2024 Beverley Sun [facility], [facility] 19:37:14 Pregnanc y 40707316 Active 2024 Beverley Sun [facility] 19:36:35 Mixed anxiety and depressi ve disorder 293146881 Active 2024 Beverley Dos Santosmontserrat lopez, [facility] 19:37:00 Headache 55769116 Active 2024 Beverley Sun [facility], [facility] 19:37:14 Past pregnanc y history of gestatio nal hyperten tonya 255686537 Active 2024 2016 pregnanc y start bASA x 2 daily Medina Whitaker CNM [address], [place], [address], [facility] 17:26:14 Attentio n deficit hyperact ivity disorder 420798176 Active 2024 stopped taking medicati on when found out Beverley Sun [facility] 19:38:30 Obesity 788429678 Active 2024 antenata l testing @ 34wks Sonya Batista [facility] 20:55:07 Hyperten tonya AND/OR vomiting complica ting pregnanc y childbir th AND/OR puerperi 874871228 Active 2024 Medina Whitaker CNM [address], [place], [address], [facility] 5 15:51:32 Notes:Encounter for antenata l screening of mother Recorded Elsewhere: No Location: [facility] Source: EHR Chronic: N Practice ID: 0001 Billable Time: 10:30:00 AM Encounter for screening of mother Practice ID: 0001 Encounter for screening of mother Recorded Elsewhere: No Location: [facility] Source: EHR Chronic: N Practice ID: 0001 Billable Time: 10:30:00 AM Encounter for screening of mother Practice ID: 0001 Problem Notes None recorded. Procedures Surgical History Date Name Laterality Status Provider Name and Address Organization Details Recorded Time Date of Last Pap Smear completed [facility] 02/06/2025 08:37:03 1 extraction of wisdom tooth completed [facility] 02/06/2025 19:33:27 Imaging Results None recorded. [...] cycle days 5-9 06/28 completed Prescrib camilo Elsewher e: No Locat ion: [facility] M odify By: [email or web address] z Encoun ter [...] Prescrib ed Elsewher e: No Locat ion: [facility] odify By: rocio solorzano DateTime : 10/26/19 [...] Prescrib ed Elsewher e: No Locat ion: [facility] odify By: [email or web address] z Hiro ter DateTime : 03/31/20 09:00:00 AM Not Available Not Available Not Available methylpre dnisolone 4 mg tablets in a dose pack FOLLOW PACKAGE DIRECTIO NS. DO NOT TAKE NSAIDS DURING STEROID PACK 02/25 completed Not Available Not Available Not Available labetalol 100 mg tablet take 1 tablet by oral route 2 times every day 07/23 completed Prescrib ed Elsewher e: No Locat ion: [facility] odify By: belem haley DateTime : 07/05/20 12:34:25 PM Not Available [...] Available Not Available Vitals Date Recorded Body height Body mass index (BMI) Body weight Systolic And Diastolic Provider Name and Address Organization Details Last Updated DateTime 05/15/2025 167.64 cm 49.2 kg/m2 808102.67 g 150/80 mm[Hg] Jaqueline Maier [facility] 05/15/2025 10:26:29 Social History Question Answer Notes LastModified by Organizat ion Details LastModified Time Tobacco Smoking Status Never Smoker Beverley Sun [facility] 03/21/2020 13:16:23 Do You Have An Advance Directive? No Information n ot available 01/07/2025 If You Are , What Was Your Level Of Alcohol Consumption Prior To ? Occasional [email or web address] Information not available 10/17/2020 Are You Blind Or Do You Have Difficulty Seeing? No [email or web address] Information n ot available 03/27/2021 What Is Your Level Of Caffeine Consumption? Occasional Information not available 10/17/2020 In The 14 Days Before Symptom Onset, Have You Had Close Contact With A Laboratory-confirm ed COVID-19 While That Case Was Ill? No [email or web address] Information n ot available 03/27/2021 In The 14 Days Before Symptom Onset, Have You Had Close Contact With A Person Who Is Under Investigation For COVID-19 While That Person Was Ill? No [email or web address] Information not available 03/27/2021 Have You Been To An Area Known To Be High Risk For COVID-19? No [email or web address] Information not available 03/27/2021 Are You Deaf Or Do You Have Serious Difficulty Hearing? No [email or web address] Information not available 03/27/2021 What Type Of Diet Are You Following? REGULAR Information n ot available 03/27/2021 What Is The Highest Grade Or Level Of School You Have Completed Or The Highest Degree You Have Received? [id number] Information not available 01/07/2025 What Was The Date Of Your Most Recent Tobacco Screening? 02/06/2025 [email or web address] Information not available 02/06/2025 Have You Ever Been Counseled For Unhealthy Alcohol Use? No [email or web address] Information not available 10/17/2020 Do You Use Protection During Sex? No Information not available 01/07/2025 Do You Use Your Seat Belt Or Car Seat Routinely? Yes [email or web address] Information not available 03/27/2021 Do You Have Smoke And Carbon Monoxide Detectors In Your Home? Yes [email or web address] Information not available 03/27/2021 How Much Tobacco Do You Smoke? No [email or web address] Information not available 03/21/2020 Do You Use Sunscreen Routinely? Yes [email or web address] Information not available 03/27/2021 Has Tobacco Cessation Counseling Been Provided? No [email or web address] Information not available 10/17/2020 Have You Used IV Drugs? No Information not available 01/07/2025 Do You Have Difficulty Walking Or Climbing Stairs? No [email or web address] Information not available 02/06/2025 Sex: Unknown Functional Status Question Answer Note LastModified by Organizat ion Details LastModified Time Do you use any illicit or recreational drugs? No Information not available 10/17/2020 Do you or have you ever used any other forms of tobacco or nicotine? No [email or web address] Information not available 10/17/2020 What is your level of alcohol consumption? None [email or web address] Information not available 02/06/2025 Do you or have you ever used smokeless tobacco? Never used smokeless tobacco [email or web address] Information not available 03/21/2020 Are you able to walk independently without assistance or assistive devices? YESWOREST [email or web address] Information not available 03/27/2021 Are you able to care for yourself independently? Yes [email or web address] Information not available 02/06/2025 Do you have difficulty dressing, bathing, grooming, or toileting? No [email or web address] Information not available 02/06/2025 Do you or have you ever used e-cigarettes or vape? Never used electronic cigarettes [email or web address] Information not available 03/21/2020 What is your exercise level? Occasional [email or web address] Information not available 03/21/2020 Mental Status Question Answer Note LastModified by Organization D etails LastModified Time Do you feel stressed (tense, restless, nervous, or anxious, or unable to sleep at night)? [id number] [email or web address] Information not available 03/27/2021 Family History Relationship Description Onset Age of this Age Resolved Age Notes LastModified by Organization Details LastModified Time Mother Disorder of thyroid gland [email or web address] Not available 03/21 13:15:49 Father Diabetes mellitus [email or web address] Not available 03/21 13:16:06 Maternal Grandfather Diabetes mellitus [email or web address] Not available 03/21 13:16:06 Maternal Grandmother Malignant [...] ICD10 Code Diagnosis IMO Codes Diagnosis Note [id number] Medina Whitaker CNM [place] [address] [address] 04/17/2025 09:33:41 04/22/2025 10:16:02 [id number] Lobito Salinas MD [place] [address] [address] 04/24/2025 13:55:21 04/24/2025 14:56:57 Follow-up encounter [id number] Z36.2 Z3A.24 [id number] Medina Whitaker CNM [place] [address] [address] 04/24/2025 13:55:53 04/24/2025 15:36:56 Gestation period, 24 weeks [id number] Z3A.24 [id number] Medina Whitaker CNM [place] [address] [address] 05/15/2025 09:49:32 05/15/2025 10:47:27 Gestation period, 27 weeks [id number] Z3A.27 [id number] Health Concerns Section Related Observation LastModified by Organization Detai ls LastModified Time None Recorded Concern Status LastModified by Organization Details LastModified Time None Recorded Payers Encounter Date Sequence Insurance Name Policy Number Policy [place] Covered Member ID [place] Member ID Guarantor Name 05/15/2025 1 [facility] [id number] Apolinar Rivers [id number] Whit Rivers Notes Date Note Type Note Provider Name and Address Organization Details Recorded Time 05/15/2025 text/html Generic HPI TemplateReported by Patient Medina Whitaker CNM [address], [place], [address], [facility] 05/15/2025 10:47:11 OBGyn Episode Ob Episode Information Episode Created Date Number of Fetuses Patient Bloodtype Patient rh Status Prepregnancy Weight lbs Domestic Partner Domestic Partner Phone Father Name Slunk Skinner Status 02/07/20 25 1 O Positive 291 Apolinar Rivers OPEN Fetus Data First Name Last Name Admitted to NICU Weight (g) Sex Living Outcome Pediatric Complications Fetus ID Race Codes Race Delivery Type [id number] Problems Problem Notes Problem Name Start Date End Date Resolution Snomed Code Not e Attention deficit hyperactivity disorder 02/06/2025 [id number] stopped taking medication when found out Past history of gestational hypertension 02/06/2025 [id number] 2015 pregnancys tart bASA x 2 daily Obesity 02/07/2025 [id number] testing @ 34wks Headache 02/06/2025 [id number] Mixed anxiety and depressive disorder 02/06/2025 [id number] Hypertension AND/OR vomiting complicating childbirth AND/OR puerperium 06/26/2025 641906522 Alfa Calculation Initial Alfa Date Initial Exam [...] Weight in lbs Pre/Post Dialysis Refused Weight 289.851754735945 BP Diastolic BP Location Tested BP Systolic [...] Weight in lbs Pre/Post Dialysis Refused Weight 294.938874467092 BP Diastolic BP Location Tested BP Systolic [...] Type Weight in lbs Pre/Post Dialysis Refused 297.946817021994 BP Diastolic BP Location Tested BP Systolic [...] Type Weight in lbs Pre/Post Dialysis Refused 302.625053336752 BP Diastolic BP Location Tested BP Systolic [...] Weight in lbs Pre/Post Dialysis Refused Weight 305.517134309609 BP Diastolic BP Location Tested BP Systolic [...] Weight in lbs Pre/Post Dialysis Refused Weight 306.320020481950 BP Diastolic BP Location Tested BP Systolic [...] Weight in lbs Pre/Post Dialysis Refused Weight 305.661048483021 BP Diastolic BP Location Tested BP Systolic [...] Weight in lbs Pre/Post Dialysis Refused Weight 307.167937988932 BP Diastolic BP Location Tested BP Systolic [...] Type Weight in lbs Pre/Post Dialysis Refused 308.249240550787 BP Diastolic BP Location Tested BP Systolic BP Type 81 L arm 132 sitting Fetus Heart Rate Present Fetus Movement A Yes Comments Flowsheet Date 07/03/2025 Bunn Score Blood Edema Fundus Height Fundus Units Glucose Ketones Leukocytes Nitrite Labor Signs Protein Cervic Dilation Cervic Effacement Cervic Station Type Weight in lbs Pre/Post Dialysis Refused 308.883898256728 BP Diastolic BP Location Tested BP Systolic [...] Weight in lbs Pre/Post Dialysis Refused Weight 310.253961118322 BP Diastolic BP Location Tested BP Systolic BP Type 85 L arm 128 sitting Fetus Heart Rate Present Fetus Movement A Yes Comments Flowsheet Date 07/10/2025 Bunn Score Blood Edema Fundus Height Fundus Units Glucose Ketones Leukocytes Nitrite Labor Signs Protein Cervic Dilation Cervic Effacement Cervic Station Type Weight in lbs Pre/Post Dialysis Refused 310.219350750146 BP Diastolic BP Location Tested BP Systolic [...] Type Weight in lbs Pre/Post Dialysis Refused 311.310435199527 BP Diastolic BP Location Tested BP Systolic [...] Weight in lbs Pre/Post Dialysis Refused Weight 312.837429051544 BP Diastolic BP Location Tested BP Systolic BP Type 84 L arm 131 sitting Fetus Heart Rate Present Fetus Movement A Yes Comments Flowsheet Date 07/24/2025 Bunn Score Blood Edema Fundus Height Fundus Units Glucose Ketones Leukocytes Nitrite Labor Signs Protein Cervic Dilation Cervic Effacement Cervic Station 1cm 50% -2 Type Weight in lbs Pre/Post Dialysis Refused Weight 312.899522560800 BP Diastolic BP Location Tested BP Systolic BP Type 84 L arm 131 sitting Fetus Heart Rate Present Fetus Movement Comments bpp 10 +FM, IOL planned f or tuesday reviewed rec for , education [...]
--- OUTSIDE RECORDS SUMMARY | 2025-07-26 05:56 | XMS_ITS | Continuity of Care Document ---
Author Organization [facility] Address [address] [place] [address] Care Team Providers Care Body Component Engineer Name Role Phone HA MORTON Primary Care Provider [phone] Assessment Encounter Date Assessment Date Assessment LastModified by Organization Details LastModified Time 07/03/2025 07/03/2025 Patient is _34__weeks . Discussed plan. Not available 07/03/2025 11:34:37 Plan of Treatment Reminders Order Date Submit [...] Not Available [facility] [address], [place], [address], 02/14/2025 01:55:32 02/15/20 25 02/14/2025 [UNIT Y] ANEUP LOIDY NIPT 22Q11.2 microdeletio n LOW RISK <1 in 10,000 normal Not Available [facility] [address], [place], [address], 02/14/2025 01:55:32 02/15/20 25 02/14/2025 [UNIT Y] ANEUP LOIDY NIPT sex chromosome aneuploidy NOT DETECT ED normal Not Available [facility] [address], [place], [address], 02/14/2025 01:55:32 02/15/20 25 02/14/2025 [UNIT Y] ANEUP LOIDY NIPT monosomy X LOW RISK <1 in 10,000 normal Not Available [facility] [address], [place], [address], 02/14/2025 01:55:32 02/15/20 25 02/14/2025 [UNIT Y] ANEUP LOIDY NIPT trisomy 13 LOW RISK <1 in 10,000 normal Not Available [facility] [address], [place], [address], 02/14/2025 01:55:32 02/15/20 25 02/14/2025 [UNIT Y] ANEUP LOIDY NIPT trisomy 18 LOW RISK <1 in 10,000 normal Not Available [facility] [address], [place], [address], 02/14/2025 01:55:32 02/15/20 25 02/14/2025 [UNIT Y] ANEUP LOIDY NIPT trisomy 21 LOW RISK <1 in 10,000 normal Not Available [facility] [address], [place], [address], 02/14/2025 01:55:32 02/15/20 25 02/14/2025 [UNIT Y] ANEUP LOIDY NIPT sex MALE normal Not Available [facility] [address], [place], [address], 02/14/2025 01:55:32 02/15/20 25 02/14/2025 [UNIT Y] ANEUP LOIDY NIPT gestation SINGLE TON normal Not Available [facility] [address], [place], [address], 02/14/2025 01:55:32 02/15/20 25 02/14/2025 [UNIT Y] ANEUP LOIDY NIPT for detailed report, see pdf See PDF normal Not Available [facility] [address], [place], [address], 02/14/2025 01:55:32 02/18/20 25 02/17/2025 [UNIT Y] OTTO Islas sickle cell disease/beta -thalassemia /hemoglobino pathies carrier screen NEGATI VE normal Not Available [facility] [address], [place], [address], 02/17/2025 10:24:39 02/18/20 25 02/17/2025 [UNIT Y] OTTO Islas alpha-thalas semia carrier screen NEGATI VE normal Not Available [facility] [address], [place], [address], 02/17/2025 10:24:39 02/18/20 25 02/17/2025 [UNIT Y] OTTO LANGFORD Janel cystic fibrosis carrier screen NEGATI VE normal Not Available [facility] [address], [place], [address], 02/17/2025 10:24:39 02/18/20 25 02/17/2025 [UNIT Y] OTTO LANGFORD Janel spinal muscular atrophy carrier screen NEGATI VE 2 SMN1 copies , SNP not presen t normal Not Available [facility] [address], [place], [address], 02/17/2025 10:24:39 02/18/20 25 02/17/2025 [UNIT Y] OTTO LANGFORD Janel for detailed report, see pdf See PDF normal Not Available [facility] [address], [place], [address], 02/17/2025 10:24:39 02/07/20 25 02/06/2025 CBC W/DIF F WBC 12.0 10'3/ uL 3.5-10 .5 high Not Available [facility] (Lab) [address], [place], [address], 02/07/2025 13:12:55 02/07/20 25 02/06/2025 CBC W/DIF F RBC 4.52 10'6/ uL (based on docume nted legal sex) 3.80-5 .20 Not Available [facility] (Lab) [address] , [place], [address], 02/07/2025 13:12:55 02/07/20 25 02/06/2025 CBC W/DIF F HGB 12.4 g/dL (based on docume nted legal sex) 11.6-1 5.4 Not Available [facility] (Lab) [address], [place], [address], 02/07/2025 13:12:55 02/07/20 25 02/06/2025 CBC W/DIF F HCT 38.9 % (based on docume nted legal sex) 34.0-4 5.0 Not Available [facility] (Lab) [address], [place], [address], 02/07/2025 13:12:55 02/07/20 25 02/06/2025 CBC W/DIF F MCV 86.1 fL 80.0-9 9.0 Not Available [facility] (Lab) [address], [place], [address], 02/07/2025 13:12:55 02/07/20 25 02/06/2025 CBC W/DIF F MCH 27.4 pg 27.0-3 4.0 Not Available [facility] (Lab) [address], [place], [address], 02/07/2025 13:12:55 02/07/20 25 02/06/2025 CBC W/DIF F MCHC 31.9 g/dL 32.0-3 5.5 low Not Available [facility] (Lab) [address], [place], [address], 02/07/2025 13:12:55 02/07/20 25 02/06/2025 CBC W/DIF F RDW 12.9 % 11.0-1 5.0 Not Available [facility] (Lab) [address], [place], [address], 02/07/2025 13:12:55 02/07/20 25 02/06/2025 CBC W/DIF F plt 281 10'3/ uL 150-40 0 Not Available [facility] (Lab) [address], [place], [address], 02/07/2025 13:12:55 02/07/20 25 02/06/2025 CBC W/DIF F MPV 11.0 fL 8.8-12 .1 Not Available [facility] (Lab) [address], [place], [address], 02/07/2025 13:12:55 02/07/20 25 02/06/2025 CBC W/DIF F NRBC's 0.0 % 0.0 Not Available [facility] (Lab) [address], [place], [address], 02/07/2025 13:12:55 02/07/20 25 02/06/2025 CBC W/DIF F absolute NRBCs 0.0 10'3/ uL no refere nce range establ ished Not Available [facility] (Lab) [address], [place], [address], 02/07/2025 13:12:55 02/07/20 25 02/06/2025 CBC W/DIF F neutrophils 72.5 % 34.0-7 3.0 Not Available [facility] (Lab) [address], [place], [address], 02/07/2025 13:12:55 02/07/20 25 02/06/2025 CBC W/DIF F lymphocytes 20.4 % 15.0-5 0.0 Not Available [facility] (Lab) [address], [place], [address], 02/07/2025 13:12:55 02/07/20 25 02/06/2025 CBC W/DIF F monocytes 5.9 % 1.0-15 .0 Not Available [facility] (Lab) [address] [facility], [place], [address], 02/07/2025 13:12:55 02/07/20 25 02/06/2025 CBC W/DIF F eosinophils 0.6 % 0.0-8. 0 Not Available [facility] (Lab) [address] [place], [address], 02/07/2025 13:12:55 02/07/20 25 02/06/2025 CBC W/DIF F basophils 0.3 % 0.0-2. 0 Not Available [facility] (Lab) [address], [place], [address], 02/07/2025 13:12:55 02/07/20 25 02/06/2025 CBC W/DIF [...] separ ately if prese nt. Not Available [facility] (Lab) [address] [facility], [place], [address], 02/07/2025 13:12:55 02/07/20 25 02/06/2025 CBC W/DIF F absolute neutrophils 8.7 10'3/ uL 1.5-8. 0 high Not Available [facility] (Lab) [address] , [place], [address], 02/07/2025 13:12:55 02/07/20 25 02/06/2025 CBC W/DIF F absolute lymphocytes 2.4 10'3/ uL 1.0-4. 0 Not Available [facility] (Lab) [address] [facility], [place], [address], 02/07/2025 13:12:55 02/07/20 25 02/06/2025 CBC W/DIF F absolute monocytes 0.7 10'3/ uL 0.2-1. 0 Not Available [facility] (Lab) [address] [facility], [place], [address], 02/07/2025 13:12:55 02/07/20 25 02/06/2025 CBC W/DIF F absolute eosinophils 0.1 10'3/ uL 0.0-0. 6 Not Available [facility] (Lab) [address] [facility], [place], [address], 02/07/2025 13:12:55 02/07/20 25 02/06/2025 CBC W/DIF F absolute basophils 0.0 10'3/ uL 0.0-0. 3 Not Available [facility] (Lab) [address] [facility], [place], [address], 02/07/2025 13:12:55 02/07/2002/06/2025 CBC W/DIF F absolute [...] bhand book. nm.or g/gen derx Not Available [facility] (Lab) [address] [facility], [place], [address], 02/07/2025 13:12:55 02/07/2002/06/2025 HEPAT ITIS B SURFA CE ANTIG EN hepatitis B surface antigen Non-re active non-re active This assay was perfo rmed using [employer] ratio n reage nts and test kits. Value s obtai dexter with other assay metho ds or kits canno t be used inter lopez eably . Not Available [facility] (Lab) [address] [facility], [place], [address], 02/07/2025 13:12:55 02/07/2002/06/2025 HIV 1/2 ANTIG EN/AN TIBOD Y, REFLE X CONFI RMATI ON HIV antigen/anti body Nonrea ctive nonrea ctive HIV-1 antig en and HIV-1 /HIV- 2 antib odies were not detec ruy. No labor atory evide nce of HIV infec tion. Not Available [facility] (Lab) [address] [facility], [place], [address], 02/07/2025 13:12:56 02/07/2002/06/2025 HEPAT ITIS C ANTIB ANITA SCREE N, REFLE X TO CONFI RMATI ON hepatitis C antibody Non-re active non-re active Antib odies to HCV Not Detec ruy, does not exclu de the possi bilit y of expos ure to HCV. Not Available [facility] (Lab) [address] [facility], [place], [address], 02/07/2025 13:12:56 02/07/20 25 02/06/2025 RUBEL LA IGG ANTIB ANITA, QUANT rubella antibodies, IgG Reacti ve reacti ve Not Available [facility] (Lab) [address] [facility], [place], [address], 02/07/2025 13:12:56 02/07/20 25 02/06/2025 RUBEL LA IGG ANTIB ANITA, QUANT rubella antibodies, IgG quant 61.9 IU/mL >=10 Non-r eacti ve (Non- Immun e) <10 IU/mL React essie (Immu ne) > or = 10 IU/mL Not Available [facility] (Lab) [address] [facility], [place], [address], 02/07/2025 13:12:56 02/07/2002/06/2025 TYPE/ RH/SC REEN ABO/Rh type O POS Not Available [facility] (Lab) [address] [facility], [place], [address], 02/07/2025 13:12:57 02/07/2002/06/2025 TYPE/ RH/SC REEN antibody screen NEG Not Available [facility] (Lab) [address] [facility], [place], [address], 02/07/2025 13:12:57 02/07/2002/06/2025 TYPE/ RH/SC REEN exp date 2024 23:59 Not Available [facility] (Lab) [address] [facility], [place], [address], 02/07/2025 13:12:57 02/07/20 02/06/2025 RPR SCREE N, REFLE X TITER /CONF IRMAT ION RPR qualitative Nonrea ctive nonrea ctive Not Available [facility] (Lab) [address] [facility], [place], [address], 02/07/2025 13:12:57 02/07/20 25 02/06/2025 HEMOG LOBIN [...] >8.0% Actio n sugge sted Not Available [facility] (Lab) [address] [facility], [place], [address], 02/07/2025 13:12:57 02/07/2002/06/2025 CULTU RE: URINE result report SEE RESULT S BELOW Test: Cultu re: Urine Speci men Sourc e: Urine - Clean Catch Speci men Type: Urine Speci men Date: 2024 1737 Resul t Date: 2024 0700 Resul t Statu s: Final resul t Abnor mal: No Resul ting Lab: [facility] [address] [facility] [address] Tel: [phone] CULTU RE ----- ----- ----- --- Cultu re resul t (>=3 organ isms prese nt) indic ates possi ble conta minat ion. Repea t cultu re if sympt oms indic ate. Not Available [facility] (Lab) [address] [facility], [place], [address], 02/08/2025 08:03:32 02/07/20 25 02/06/2025 drug scree n, urine Amphetamines : negati ve Not Available [facility] [address], [place], [address], 02/06/2025 18:30:19 02/07/20 25 02/06/2025 drug scree n, urine Cannabinoids : negati ve Not Available [facility] [address], [place], [address], 02/06/2025 18:30:19 02/07/20 25 02/06/2025 drug scree n, urine Cocaine: negati ve Not Available [facility] [address], [place], [address], 02/06/2025 18:30:19 02/07/20 25 02/06/2025 drug scree n, urine Opiates: negati ve Not Available [facility] [address], [place], [address], 02/06/2025 18:30:19 02/07/20 25 02/06/2025 drug scree n, urine Phenocyclidi ne: negati ve Not Available [facility] [address], [place], [address], 02/06/2025 18:30:19 02/07/20 25 02/06/2025 drug scree n, urine Barbiturates : negati ve Not Available [facility] [address], [place], [address], 02/06/2025 18:30:19 02/07/20 25 02/06/2025 drug scree n, urine Benzodiazepi brayan: negati ve Not Available [facility] [address], [place], [address], 02/06/2025 18:30:19 02/07/20 25 02/06/2025 drug scree n, urine Ethanol: negati ve Not Available [facility] [address], [place], [address], 02/06/2025 18:30:19 02/07/2002/06/2025 drug scree n, urine Hallucinogen s: negati ve Not Available [facility] [address], [place], [address], 02/06/2025 18:30:19 02/07/20 25 02/06/2025 drug scree n, urine Inhalants: negati ve Not Available [facility] [address], [place], [address], 02/06/2025 18:30:19 02/07/20 25 02/06/2025 drug scree n, urine Anabolic Steroids: negati ve Not Available [facility] [address], [place], [address], 02/06/2025 18:30:19 02/07/20 25 02/06/2025 drug scree n, urine Other: negati ve Not Available [facility] [address], [place], [address], 02/06/2025 18:30:19 05/15/20 25 05/15/2025 HEMOG LOBIN (HGB) HGB 10.9 g/dL (based on docume nted legal sex) 11.6-1 5.4 low Not Available [facility] (Lab) [address] [place], [address], 05/16/2025 09:55:38 05/15/20 25 05/15/2025 HEMAT OCRIT (HCT) HCT 35.7 % (based on docume nted legal sex) 34.0-4 5.0 Not Available [facility] (Lab) [address] , [place], [address], 05/16/2025 09:55:39 05/15/20 25 05/15/2025 CBC W/DIF F WBC 14.6 10'3/ uL 3.5-10 .5 high Not Available [facility] (Lab) [address], [place], [address], 05/16/2025 09:55:39 05/15/2005/15/2025 CBC W/DIF F RBC 4.01 10'6/ uL (based on docume nted legal sex) 3.80-5 .20 Not Available [facility] (Lab) [address], [place], [address], 05/16/2025 09:55:39 05/15/2005/15/2025 CBC W/DIF F HGB 10.9 g/dL (based on docume nted legal sex) 11.6-1 5.4 low Not Available [facility] (Lab) [address], [place], [address], 05/16/2025 09:55:39 05/15/2005/15/2025 CBC W/DIF F HCT 35.7 % (based on docume nted legal sex) 34.0-4 5.0 Not Available [facility] (Lab) [address], [place], [address], 05/16/2025 09:55:39 05/15/2005/15/2025 CBC W/DIF F MCV 89.0 fL 80.0-9 9.0 Not Available [facility] (Lab) [address], [place], [address], 05/16/2025 09:55:39 05/15/2005/15/2025 CBC W/DIF F MCH 27.2 pg 27.0-3 4.0 Not Available [facility] (Lab) [address], [place], [address], 05/16/2025 09:55:39 05/15/2005/15/2025 CBC W/DIF F MCHC 30.5 g/dL 32.0-3 5.5 low Not Available [facility] (Lab) [address], [place], [address], 05/16/2025 09:55:39 05/15/2005/15/2025 CBC W/DIF F RDW 14.5 % 11.0-1 5.0 Not Available [facility] (Lab) [address], [place], [address], 05/16/2025 09:55:39 05/15/2005/15/2025 CBC W/DIF F plt 218 10'3/ uL 150-40 0 Not Available [facility] (Lab) [address], [place], [address], 05/16/2025 09:55:39 05/15/2005/15/2025 CBC W/DIF F MPV 11.1 fL 8.8-12 .1 Not Available [facility] (Lab) [address], [place], [address], 05/16/2025 09:55:39 05/15/2005/15/2025 CBC W/DIF F NRBC's 0.0 % 0.0 Not Available [facility] (Lab) [address], [place], [address], 05/16/2025 09:55:39 05/15/2005/15/2025 CBC W/DIF F absolute NRBCs 0.0 10'3/ uL no refere nce range establ ished Not Available [facility] (Lab) [address], [place], [address], 05/16/2025 09:55:39 05/15/2005/15/2025 CBC W/DIF F neutrophils 78.7 % 34.0-7 3.0 high Not Available [facility] (Lab) [address], [place], [address], 05/16/2025 09:55:39 05/15/2005/15/2025 CBC W/DIF F lymphocytes 15.0 % 15.0-5 0.0 Not Available [facility] (Lab) [address] [facility], [place], [address], 05/16/2025 09:55:39 05/15/2005/15/2025 CBC W/DIF F monocytes 4.9 % 1.0-15 .0 Not Available [facility] (Lab) [address] [facility], [place], [address], 05/16/2025 09:55:39 05/15/2005/15/2025 CBC W/DIF F eosinophils 0.6 % 0.0-8. 0 Not Available [facility] (Lab) [address] [facility], [place], [address], 05/16/2025 09:55:39 05/15/2005/15/2025 CBC W/DIF F basophils 0.3 % 0.0-2. 0 Not Available [facility] (Lab) [address] [facility], [place], [address], 05/16/2025 09:55:39 05/15/2005/15/2025 CBC W/DIF F immature granulocytes 0.5 % no define d refere nce range Immat ure Granu locyt es (IG) repre sents autom ated enume ratio n of Metam yeloc ytes, Myelo cytes and Promy elocy shlomo when IG is < 5%. Blast s are not inclu ded in IG and repor ruy separ ately if prese nt. Not Available [facility] (Lab) [address] [facility], [place], [address], 05/16/2025 09:55:39 05/15/2005/15/2025 CBC W/DIF F absolute neutrophils 11.4 10'3/ uL 1.5-8. 0 high Not Available [facility] (Lab) [address] [facility], [place], [address], 05/16/2025 09:55:39 05/15/2005/15/2025 CBC W/DIF F absolute lymphocytes 2.2 10'3/ uL 1.0-4. 0 Not Available [facility] (Lab) [address] [facility], [place], [address], 05/16/2025 09:55:39 05/15/2005/15/2025 CBC W/DIF F absolute monocytes 0.7 10'3/ uL 0.2-1. 0 Not Available [facility] (Lab) [address] [facility], [place], [address], 05/16/2025 09:55:39 05/15/2005/15/2025 CBC W/DIF F absolute eosinophils 0.1 10'3/ uL 0.0-0. 6 Not Available [facility] (Lab) [address] [facility], [place], [address], 05/16/2025 09:55:39 05/15/2005/15/2025 CBC W/DIF F absolute basophils 0.1 10'3/ uL 0.0-0. 3 Not Available [facility] (Lab) [address] [facility], [place], [address], 05/16/2025 09:55:39 05/15/2005/15/2025 CBC W/DIF F absolute [...] hyman book. nm.or g/gen derx Not Available [facility] (Lab) [address] , [place], [address], 05/16/2025 09:55:39 05/15/2005/15/2025 GTT - GESTA KHANH Islas, ACOG OB glucose, 1 hour screen 115 mg/dL 70-135 Not Available [facility] (Lab) [address] [facility], [place], [address], 05/16/2025 09:55:40 05/15/20 25 05/15/2025 URIC ACID uric acid 4.1 mg/dL 2.3-6. 6 Not Available [facility] (Lab) [address] [place], [address], 05/16/2025 09:55:40 05/15/20 25 05/15/2025 CMP(C OMPRE HENSI VE METAB OLIC PANEL ) sodium 138 mmol/ L 133-14 6 Not Available [facility] (Lab) [address] [facility], [place], [address], 05/16/2025 09:55:41 05/15/20 25 05/15/2025 CMP(C OMPRE HENSI VE METAB OLIC PANEL ) potassium 4.1 mmol/ L 3.5-5. 1 Not Available [facility] (Lab) [address] [facility], [place], [address], 05/16/2025 09:55:41 05/15/20 25 05/15/2025 CMP(C OMPRE HENSI VE METAB OLIC PANEL ) chloride 104 mmol/ L 98-107 Not Available [facility] (Lab) [address] [place], [address], 05/16/2025 09:55:41 05/15/20 25 05/15/2025 CMP(C OMPRE HENSI VE METAB OLIC PANEL ) carbon dioxide 24 mmol/ L 21-31 Not Available [facility] (Lab) [address] [place], [address], 05/16/2025 09:55:41 05/15/20 25 05/15/2025 CMP(C OMPRE HENSI VE METAB OLIC PANEL ) anion gap 10 mmol/ L 4-13 Not Available [facility] (Lab) [address] [place], [address], 05/16/2025 09:55:41 05/15/20 25 05/15/2025 CMP(C OMPRE HENSI VE METAB OLIC PANEL ) blood urea nitrogen 7 mg/dL 7-25 Not Available [facility] (Lab) [address] [facility], [place], [address], 05/16/2025 09:55:41 05/15/2005/15/2025 CMP(C OMPRE HENSI VE METAB OLIC PANEL ) creatinine 0.55 mg/dL 0.60-1 .30 low Not Available [facility] (Lab) [address] [facility], [place], [address], 05/16/2025 09:55:41 05/15/2005/15/2025 CMP(C OMPRE HENSI VE METAB OLIC PANEL ) egfrcr (CKD-epi 2020) >90 mL/mi n/1.7 3_m2 >=60 Not Available [facility] (Lab) [address] [facility], [place], [address], 05/16/2025 09:55:41 05/15/20 25 05/15/2025 CMP(C OMPRE HENSI VE METAB OLIC PANEL ) calcium 8.7 mg/dL 8.3-10 .5 Not Available [facility] (Lab) [address] [place], [address], 05/16/2025 09:55:41 05/15/20 25 05/15/2025 CMP(C OMPRE HENSI VE METAB OLIC PANEL ) glucose 115 mg/dL 70-100 high Not Available [facility] (Lab) [address] [place], [address], 05/16/2025 09:55:41 05/15/20 25 05/15/2025 CMP(C OMPRE HENSI VE METAB OLIC PANEL ) protein, total 5.7 g/dL 6.4-8. 3 low Not Available [facility] (Lab) [address] [facility], [place], [address], 05/16/2025 09:55:41 05/15/20 25 05/15/2025 CMP(C OMPRE HENSI VE METAB OLIC PANEL ) albumin 3.1 g/dL 3.5-5. 0 low Not Available [facility] (Lab) [address] [facility], [place], [address], 05/16/2025 09:55:41 05/15/2005/15/2025 CMP(C OMPRE HENSI VE METAB OLIC PANEL ) ALT 9 units /L 9-43 Not Available [facility] (Lab) [address] [facility], [place], [address], 05/16/2025 09:55:41 05/15/2005/15/2025 CMP(C OMPRE HENSI VE METAB OLIC PANEL ) alkaline phosphatase 114 units /L 34-104 high Not Available [facility] (Lab) [address] [facility], [place], [address], 05/16/2025 09:55:41 05/15/20 25 05/15/2025 CMP(C OMPRE HENSI VE METAB OLIC PANEL ) AST 11 units /L 13-39 low Not Available [facility] (Lab) [address] [facility], [place], [address], 05/16/2025 09:55:41 05/15/2005/15/2025 CMP(C OMPRE HENSI VE METAB OLIC PANEL ) bilirubin, total 0.3 mg/dL 0.2-1. 2 Not Available [facility] (Lab) [address] [facility], [place], [address], 05/16/2025 09:55:41 05/15/2005/15/2025 HIV 1/2 ANTIG EN/AN TIBOD Y, REFLE X CONFI RMATI ON HIV antigen/anti body Nonrea ctive nonrea ctive HIV-1 antig en and HIV-1 /HIV- 2 antib odies were not detec ruy. No labor atory evide nce of HIV infec tion. Not Available [facility] (Lab) [address] [facility], [place], [address], 05/16/2025 09:55:41 05/15/20 25 05/15/2025 PROTE IN/CR EATIN INE RATIO , URINE creatinine, urine 13.0 mg/dL R-No refer ence range estab lishe d for this assay Not Available [facility] (Lab) [address] [facility], [place], [address], 05/16/2025 09:55:42 05/15/20 25 05/15/2025 PROTE IN/CR EATIN INE RATIO , URINE protein, urine <4 mg/dL R-No refer ence range estab lishe d for this assay Not Available [facility] (Lab) [address] [facility], [place], [address], 05/16/2025 09:55:42 05/15/20 25 05/15/2025 PROTE IN/CR [...] fican t prote inuri a. Not Available [facility] (Lab) [address], [place], [address], 05/16/2025 09:55:42 05/15/20 25 05/15/2025 RPR SCREE N, REFLE X TITER /CONF IRMAT ION RPR qualitative Nonrea ctive nonrea ctive Not Available [facility] (Lab) [address], [place], [address], 05/16/2025 09:55:42 06/26/20 25 06/26/2025 PROTE IN/CR EATIN INE RATIO , URINE creatinine, urine 177.6 mg/dL R-No refer ence range estab lishe d for this assay Not Available [facility] (Lab) [address], [place], [address], 06/27/2025 04:29:05 06/26/20 25 06/26/2025 PROTE IN/CR EATIN INE RATIO , URINE protein, urine 15 mg/dL R-No refer ence range estab lishe d for this assay Not Available [facility] (Lab) [address], [place], [address], 06/27/2025 04:29:05 06/26/20 25 06/26/2025 PROTE IN/CR [...] fican t prote inuri a. Not Available [facility] (Lab) [address], [place], [address], 06/27/2025 04:29:05 06/26/20 25 06/26/2025 CBC W/DIF F WBC 13.4 10'3/ uL 3.5-10 .5 high Not Available [facility] (Lab) [address], [place], [address], 06/27/2025 04:29:05 06/26/20 25 06/26/2025 CBC W/DIF F RBC 4.22 10'6/ uL (based on docume nted legal sex) 3.80-5 .20 Not Available [facility] (Lab) [address], [place], [address], 06/27/2025 04:29:05 06/26/20 25 06/26/2025 CBC W/DIF F HGB 11.9 g/dL (based on docume nted legal sex) 11.6-1 5.4 Not Available [facility] (Lab) [address], [place], [address], 06/27/2025 04:29:05 06/26/20 25 06/26/2025 CBC W/DIF F HCT 37.5 % (based on docume nted legal sex) 34.0-4 5.0 Not Available [facility] (Lab) [address], [place], [address], 06/27/2025 04:29:05 06/26/20 25 06/26/2025 CBC W/DIF F MCV 88.9 fL 80.0-9 9.0 Not Available [facility] (Lab) [address], [place], [address], 06/27/2025 04:29:05 06/26/2006/26/2025 CBC W/DIF F MCH 28.2 pg 27.0-3 4.0 Not Available [facility] (Lab) [address], [place], [address], 06/27/2025 04:29:05 06/26/20 25 06/26/2025 CBC W/DIF F MCHC 31.7 g/dL 32.0-3 5.5 low Not Available [facility] (Lab) [address], [place], [address], 06/27/2025 04:29:05 06/26/20 25 06/26/2025 CBC W/DIF F RDW 14.6 % 11.0-1 5.0 Not Available [facility] (Lab) [address], [place], [address], 06/27/2025 04:29:05 06/26/2006/26/2025 CBC W/DIF F plt 224 10'3/ uL 150-40 0 Not Available [facility] (Lab) [address], [place], [address], 06/27/2025 04:29:05 06/26/20 25 06/26/2025 CBC W/DIF F MPV 12.2 fL 8.8-12 .1 high Not Available [facility] (Lab) [address], [place], [address], 06/27/2025 04:29:05 06/26/20 25 06/26/2025 CBC W/DIF F NRBC's 0.0 % 0.0 Not Available [facility] (Lab) [address], [place], [address], 06/27/2025 04:29:05 06/26/20 25 06/26/2025 CBC W/DIF F absolute NRBCs 0.0 10'3/ uL no refere nce range establ ished Not Available [facility] (Lab) [address], [place], [address], 06/27/2025 04:29:05 06/26/20 25 06/26/2025 CBC W/DIF F neutrophils 73.2 % 34.0-7 3.0 high Not Available [facility] (Lab) [address], [place], [address], 06/27/2025 04:29:05 06/26/20 25 06/26/2025 CBC W/DIF F lymphocytes 18.3 % 15.0-5 0.0 Not Available [facility] (Lab) [address], [place], [address], 06/27/2025 04:29:05 06/26/20 25 06/26/2025 CBC W/DIF F monocytes 7.5 % 1.0-15 .0 Not Available [facility] (Lab) [address], [place], [address], 06/27/2025 04:29:05 06/26/20 25 06/26/2025 CBC W/DIF F eosinophils 0.4 % 0.0-8. 0 Not Available [facility] (Lab) [address], [place], [address], 06/27/2025 04:29:05 06/26/20 25 06/26/2025 CBC W/DIF F basophils 0.2 % 0.0-2. 0 Not Available [facility] (Lab) [address], [place], [address], 06/27/2025 04:29:05 06/26/20 25 06/26/2025 CBC W/DIF [...] separ ately if prese nt. Not Available [facility] (Lab) [address], [place], [address], 06/27/2025 04:29:05 06/26/20 25 06/26/2025 CBC W/DIF F absolute neutrophils 9.8 10'3/ uL 1.5-8. 0 high Not Available [facility] (Lab) [address] , [place], [address], 06/27/2025 04:29:05 06/26/20 25 06/26/2025 CBC W/DIF F absolute lymphocytes 2.5 10'3/ uL 1.0-4. 0 Not Available [facility] (Lab) [address] , [place], [address], 06/27/2025 04:29:05 06/26/20 25 06/26/2025 CBC W/DIF F absolute monocytes 1.0 10'3/ uL 0.2-1. 0 Not Available [facility] (Lab) [address] , [place], [address], 06/27/2025 04:29:05 06/26/20 25 06/26/2025 CBC W/DIF F absolute eosinophils 0.1 10'3/ uL 0.0-0. 6 Not Available [facility] (Lab) [address], [place], [address], 06/27/2025 04:29:05 06/26/20 25 06/26/2025 CBC W/DIF F absolute basophils 0.0 10'3/ uL 0.0-0. 3 Not Available [facility] (Lab) [address], [place], [address], 06/27/2025 04:29:05 06/26/20 25 06/26/2025 CBC W/DIF F absolute immature granulocytes 0.1 10'3/ uL 0.00-0 .10 Refer ence range s for nonbi nary/ inter sex or unspe cifie d gende r patie nts have not been estab lishe d. [facility]as [facility] for range s estab lishe d for cisge nder patie nts and evalu ate in the clini patrice kristal xt of the indiv idual patie nt: https :[email or web address] donna book. nm.or g/gen derx Not Available [facility] (Lab) [address], [place], [address], 06/27/2025 04:29:05 06/26/2006/26/2025 URIC ACID uric acid 4.8 mg/dL 2.3-6. 6 Not Available [facility] (Lab) [address] [place], [address], 06/27/2025 04:29:06 06/26/20 25 06/26/2025 CMP(C OMPRE HENSI VE METAB OLIC PANEL ) sodium 138 mmol/ L 133-14 6 Not Available [facility] (Lab) [address], [place], [address], 06/27/2025 04:29:06 06/26/20 25 06/26/2025 CMP(C OMPRE HENSI VE METAB OLIC PANEL ) potassium 4.0 mmol/ L 3.5-5. 1 Not Available [facility] (Lab) [address] [place], [address], 06/27/2025 04:29:06 06/26/20 25 06/26/2025 CMP(C OMPRE HENSI VE METAB OLIC PANEL ) chloride 103 mmol/ L 98-107 Not Available [facility] (Lab) [address], [place], [address], 06/27/2025 04:29:06 06/26/20 25 06/26/2025 CMP(C OMPRE HENSI VE METAB OLIC PANEL ) carbon dioxide 26 mmol/ L 21-31 Not Available [facility] (Lab) [address], [place], [address], 06/27/2025 04:29:06 06/26/2006/26/2025 CMP(C OMPRE HENSI VE METAB OLIC PANEL ) anion gap 9 mmol/ L 4-13 Not Available [facility] (Lab) [address], [place], [address], 06/27/2025 04:29:06 06/26/20 25 06/26/2025 CMP(C OMPRE HENSI VE METAB OLIC PANEL ) blood urea nitrogen 7 mg/dL 7-25 Not Available [facility] (Lab) [address], [place], [address], 06/27/2025 04:29:06 06/26/20 25 06/26/2025 CMP(C OMPRE HENSI VE METAB OLIC PANEL ) creatinine 0.66 mg/dL 0.60-1 .30 Not Available [facility] (Lab) [address], [place], [address], 06/27/2025 04:29:06 06/26/2006/26/2025 CMP(C OMPRE HENSI VE METAB OLIC PANEL ) egfrcr (CKD-epi 2020) >90 mL/mi n/1.7 3_m2 >=60 Not Available [facility] (Lab) [address], [place], [address], 06/27/2025 04:29:06 06/26/20 25 06/26/2025 CMP(C OMPRE HENSI VE METAB OLIC PANEL ) calcium 9.0 mg/dL 8.3-10 .5 Not Available [facility] (Lab) [address], [place], [address], 06/27/2025 04:29:06 06/26/20 25 06/26/2025 CMP(C OMPRE HENSI VE METAB OLIC PANEL ) glucose 74 mg/dL 70-100 Not Available [facility] (Lab) [address], [place], [address], 06/27/2025 04:29:06 06/26/2006/26/2025 CMP(C OMPRE HENSI VE METAB OLIC PANEL ) protein, total 6.1 g/dL 6.4-8. 3 low Not Available [facility] (Lab) [address] [place], [address], 06/27/2025 04:29:06 06/26/20 25 06/26/2025 CMP(C OMPRE HENSI VE METAB OLIC PANEL ) albumin 3.3 g/dL 3.5-5. 0 low Not Available [facility] (Lab) [address] [place], [address], 06/27/2025 04:29:06 06/26/20 25 06/26/2025 CMP(C OMPRE HENSI VE METAB OLIC PANEL ) ALT 36 units /L 9-43 Not Available [facility] (Lab) [address] [place], [address], 06/27/2025 04:29:06 06/26/20 25 06/26/2025 CMP(C OMPRE HENSI VE METAB OLIC PANEL ) alkaline phosphatase 131 units /L 34-104 high Not Available [facility] (Lab) [address] [place], [address], 06/27/2025 04:29:06 06/26/20 25 06/26/2025 CMP(C OMPRE HENSI VE METAB OLIC PANEL ) AST 20 units /L 13-39 Not Available [facility] (Lab) [address], [place], [address], 06/27/2025 04:29:06 06/26/20 25 06/26/2025 CMP(C OMPRE HENSI VE METAB OLIC PANEL ) bilirubin, total 0.3 mg/dL 0.2-1. 2 Not Available [facility] (Lab) [address], [place], [address], 06/27/2025 04:29:06 02/07/20 25 02/06/2025 US, obste tric, nucha l trans lucen cy No observ ation record ed. [email or web address] [address], [place], [address], 02/06/2025 17:26:10 02/07/20 25 02/06/2025 US, obste tric, follo w-up No observ ation record ed. [email or web address] [address], [place], [address], 02/07/2025 11:49:39 03/27/20 25 03/27/2025 US, obste tric, 2nd or 3rd trime ster No observ ation record ed. [email or web address] [address], [place], [address], 03/27/2025 16:50:03 03/27/20 25 03/27/2025 US, obste tric, 2nd or 3rd trime ster No observ ation record ed. [email or web address] Vivi [address], [place], [address], 04/01/2025 20:55:55 04/24/20 25 04/24/2025 US, obste tric, follo w-up No observ ation record ed. [email or web address] [address], [place], [address], 04/24/2025 18:50:20 04/24/20 25 04/24/2025 US, obste tric, follo w-up No observ ation record ed. [email or web address] Vivi [address], [place], [address], 05/02/2025 18:12:06 05/05/20 25 05/05/2025 US, obste tric, limit ed No observ ation record ed. [address] [facility], [place], [address], 05/08/2025 11:23:32 05/05/20 25 05/05/2025 US, obste tric, limit ed No observ ation record ed. [address] [facility], [place], [address], 05/08/2025 11:23:15 05/06/20 25 05/05/2025 non-s tress test No observ ation record ed. [address] [facility], [place], [address], 05/14/2025 16:17:57 06/12/2006/12/2025 US, obste tric, follo w-up No observ ation record ed. [email or web address] [address], [place], [address], 06/12/2025 13:37:49 06/12/2006/12/2025 US, obste tric, follo w-up No observ ation record ed. [email or web address] Vivi [address], [place], [address], 06/14/2025 12:40:46 06/26/20 25 06/26/2025 non-s tress test No observ ation record ed. [email or web address] [address], [place], [address], 06/26/2025 17:40:02 06/26/20 non-s tress test No observ ation record ed. [email or web address] [address], [place], [address], 06/26/2025 17:40:25 07/03/20 25 07/03/2025 US, obste tric, bioph ysica l profi le + non-s tress test No observ ation record ed. [email or web address] [address], [place], [address], 07/03/2025 10:21:51 07/03/2007/03/2025 US, obste tric, bioph ysica l profi le + non-s tress test No observ ation record ed. [email or web address] Vivi [address], [place], [address], 07/03/2025 10:36:03 07/03/2007/03/2025 non-s tress test No observ ation record ed. [address], [place], [address], 07/03/2025 17:34:00 07/03/20 non-s tress test No observ ation record ed. [email or web address] [address], [place], [address], 07/03/2025 16:02:31 07/10/2007/10/2025 US, obste tric, follo w-up No observ ation record ed. [email or web address] [address], [place], [address], 07/10/2025 11:53:53 07/10/2007/10/2025 US, obste tric, follo w-up No observ ation record ed. [email or web address] [address], [place], [address], 07/10/2025 13:24:28 07/10/20 25 07/10/2025 US, obste tric, bioph ysica l profi le + non-s tress test No observ ation record ed. [email or web address] [address], [place], [address], 07/10/2025 13:24:41 07/10/20 25 07/10/2025 non-s tress test No observ ation record ed. [email or web address] [address], [place], [address], 07/10/2025 16:54:42 07/10/20 non-s tress test No observ ation record ed. [address], [place], [address], 07/10/2025 16:55:51 07/17/2007/17/2025 non-s tress test No observ ation record ed. FELICITY [address], [place], [address], 07/19/2025 11:50:49 07/17/20 non-s tress test No observ ation record ed. [address], [place], [address], 07/17/2025 10:56:47 07/17/2007/17/2025 US, obste tric, bioph ysica l profi le + non-s tress test No observ ation record ed. [email or web address] [address], [place], [address], 07/17/2025 13:24:17 07/17/20 25 07/17/2025 US, obste tric, bioph ysica l profi le + non-s tress test No observ ation record ed. [email or web address] Vivi [address], [place], [address], 07/17/2025 11:37:56 07/24/2007/24/2025 US, obste tric, bioph ysica l profi le + non-s tress test No observ ation record ed. [email or web address] Vivi [address], [place], [address], 07/24/2025 11:16:54 07/24/2007/24/2025 US, obste tric, bioph ysica l profi le + non-s tress test No observ ation record ed. [facility] [address], [place], [address], 07/24/2025 18:17:48 07/24/2007/24/2025 non-s tress test No observ ation record ed. [facility] [address], [place], [address], 07/24/2025 18:19:09 07/24/20 non-s tress test No observ ation record ed. [email or web address] [address], [place], [address], 07/24/2025 16:00:08 Result Notes None recorded. Problems Name Problem SNOMED Code Status Onset Date Resolution Date Notes Provider Name and Address Organization Details Recorded Time Pregnanc y test negative 098589238 Completed 201409/02/2020 Pregnanc y examinat ion or test, negative result;R ecorded Elsewher e: No [facility] EHR Supervisor [employer] elena: N Practi ce ID: 0001 Grabiel lable Time: 03:15:00 PM Beverley Sun [place], [place] - [facility] 0 17:56:19 Obesity [id number] Completed 201409/03/2020 Obesity, unspecif ied;Prac bronson ID: 0001 Beverley lopez, [facility] 0 14:20:47 Speciali zed medical examinat ion Completed 201409/02/2020 Routine gynecolo gical examinat ion;Prac bronson ID: 0001 Beverley lopez, [facility] 0 17:57:40 Screenin g for malignan t neoplasm of cervix Completed 201409/02/2020 Pap Smear;Pr actice ID: 0001 Beverley lopez, [facility] 0 17:56:38 Educatio n Completed 201409/02/2020 Family planning ;Recorde d Elsewher e: No Locat ion: [facility] S ource: EHR Supervisor [employer] elena: N Practi ce ID: 0001 Grabiel lable Time: 04:00:00 PM Beverley lopez, [facility] 0 17:55:08 Female infertil ity [id number] Completed 201410/17/2020 Infertil ity, female, of unspecif ied origin;P ractice ID: 0001 Beverley lopez, [facility] 1 10:55:45 Body mass index 30+ - obesity [id number] Completed 201510/17/2020 Body mass index (BMI) 39.0-39. 9, adult;Re corded Elsewher e: No Locat ion: [facility] S ource: EHR Supervisor [employer] elena: N Practi ce ID: 0001 Grabiel lable Time: 11:00:00 AM Beverley lopez, [facility] 1 10:55:40 Syncope and collapse [id number] Completed 201510/17/2020 Syncope and collapse ;Recorde d Elsewher e: No Locat ion: [facility] S ource: EHR Supervisor [employer] elena: N Practi ce ID: 0001 Grabiel lable Time: 10:30:00 AM Beverley lopez, [facility] 1 10:56:12 Gestatio n less than 9 weeks [id number] Completed 201509/02/2020 Less than 8 weeks gestatio n of pregnanc y;Practi ce ID: 0001 Beverley Corinne lopez, [facility] 0 17:55:27 Pregnanc y, childbir th and puerperi um finding Completed 201510/17/2020 Encntr for suprvsn of normal first preg, first trimeste r;Practi ce ID: 0001 Beverley lopez, [facility] 1 10:55:59 Gestatio n period, 12 weeks [id number] Completed 201509/02/2020 12 weeks gestatio n of pregnanc y;Practi ce ID: 0001 Beverley lopez, [facility] 0 17:55:30 Pregnanc y, childbir th and puerperi um finding Completed 201509/02/2020 Encntr for suprvsn of normal first preg, second trimeste r;Practi ce ID: 0001 Beverley lopez, [facility] 0 17:56:27 Gestatio n period, 32 weeks [id number] Completed 201509/02/2020 32 weeks gestatio n of pregnanc y;Practi ce ID: 0001 Beverley lopez, [facility] 0 17:55:35 Pregnanc y, childbir th and puerperi um finding Completed 201509/03/2020 Encounte r for supervis ion of normal first pregnanc y, third trimeste r;Record ed Elsewher e: No Locat ion: [facility] S ource: EHR Supervisor [employer] elena: N Practi ce ID: 0001 Grabiel lable Time: 05:30:00 PM Beverley lopez, [facility] 0 14:20:36 Gestatio n period, 33 weeks [id number] Completed 201509/02/2020 33 weeks gestatio n of pregnanc y;Record ed Elsewher e: No Locat ion: [facility] S ource: EHR Supervisor [employer] elena: N Practi ce ID: 0001 Grabiel lable Time: 09:00:00 AM Beverley lopez, [facility] 0 17:55:39 Normal pregnanc y in multigra [place] [id number] 83560 Completed 201509/02/2020 Encounte r for suprvsn of normal pregnanc y, third trimeste r;Practi ce ID: 0001 Beverley lopez, [facility] 0 17:56:11 Gestatio n period, 34 weeks [id number] Completed 201509/02/2020 34 weeks gestatio n of pregnanc y;Practi ce ID: 0001 Beverley lopez, [facility] 0 17:55:42 Pregnanc y-induce d hyperten tonya Completed 201503/27/2021 Gestatio nal htn w/o signific ant proteinu che, third trimeste r;Record ed Elsewher e: No Locat ion: [facility] S ource: EHR Supervisor [employer] elena: N Practi ce ID: 0001 Grabiel lable Time: 03:00:00 PM Beverley lopez, [facility] 1 16:36:34 Gestatio n period, 36 weeks [id number] Completed 201509/02/2020 36 weeks gestatio n of pregnanc y;Practi ce ID: 0001 Beverley lopez, [facility] 0 17:55:48 Single live from singleto n pregnanc y [id number] Completed 201509/03/2020 Single live ;Pr actice ID: 0001 Beverley lopez, [facility] 0 14:20:54 Gestatio n period, 37 weeks [id number] Completed 201509/02/2020 37 weeks gestatio n of pregnanc y;Practi ce ID: 0001 Beverley lopez, [facility] 0 17:55:50 Pregnanc y-induce d hyperten tonya Completed 201509/02/2020 Gestatio nal htn w/o signific ant proteinu che, unsp trimeste r;Practi ce ID: 0001 Beverley lopez, [facility] 0 17:57:29 Hyperten sive disorder [id number] Completed 201503/27/2021 Benign hyperten tonya;Rec orded Elsewher e: No Locat ion: [facility] S ource: EHR Supervisor [employer] elena: N Practi ce ID: 0001 Grabiel lable Time: 10:30:00 AM Beverley lopez [facility] 5 19:18:30 Non-prot einuric hyperten tonya of pregnanc y [id number] Completed 201510/17/2020 Gestatnl htn without signific ant protein, comp the puerp;Pr actice ID: 0001 Beverley lopez [facility] 1 10:56:02 Lochia finding Completed 201510/17/2020 Encounte r for routine postpart um follow-u p;Practi ce ID: 0001 Beverley lopez [facility] 1 10:55:[address] Concept Completed 201809/02/2020 Encntr for manager customer exam (general ) (routine ) w/o abn findings ;Recorde d Elsewher e: No Locat ion: [facility] S ource: EHR Supervisor [employer] elena: N Practi ce ID: 0001 Grabiel lable Time: 10:30:00 AM Beverley lopez, [facility] 0 17:56:45 Pregnanc y detectio n examinat ion Completed 201809/02/2020 Encounte r for pregnanc y test, result positive ;Practic e ID: 0001 Beverley lopez, [facility] 0 17:56:17 Uterine size for dates discrepa ncy Completed 201810/17/2020 Uterine size-malia e discrepa ncy, first trimeste r;Practi ce ID: 0001 Beverley Sun jessica, [facility] 1 10:56:17 Secondar y amenorrh ea [id number] Completed 201810/17/2020 Secondar y amenorrh ea;Recor ded Elsewher e: No Locat ion: [facility] S ource: EHR Supervisor [employer] elena: N Practi ce ID: 0001 Grabiel lable Time: 10:30:00 AM Beverley Sun jessica, [facility] 1 10:56:05 Infectio n screenin g Completed 201809/02/2020 Encounte r for screenin g for oth infec/pa rastc diseases ;Recorde d Elsewher e: No Locat ion: [facility] S ource: EHR Supervisor [employer] elena: N Practi ce ID: 0001 Grabiel lable Time: 10:30:00 AM Beverley Sun jessica, [facility] 0 17:56:03 Syphilis test finding [id number] Completed 201809/03/2020 Encntr screen for infectio ns w sexl mode of transmis s;Record ed Elsewher e: No Locat ion: [facility] S ource: EHR Supervisor [employer] elena: N Practi ce ID: 0001 Grabiel lable Time: 10:30:00 AM Beverley Sun jessica [facility] 0 14:20:58 Finding of viabilit y of pregnanc y [id number] Completed 201809/02/2020 Pregnanc y w inconclu sive viabilit y, unsp;Pra ctice ID: 0001 Beverley lopez, [facility] 0 17:55:21 Finding of contents of cervix [id number] Completed 201809/02/2020 Weeks of gestatio n of pregnanc y not specifie d;Practi ce ID: 0001 Beverley Sun [facility], [facility] 0 17:55:14 Threaten ed miscarri age [id number] Completed 201810/17/2020 Threaten ed ;Recorde d Elsewher e: No Locat ion: [facility] S ource: EHR Supervisor [employer] elena: N Practi ce ID: 0001 Grabiel lable Time: 12:30:00 PM Beverley Sun [facility], [facility] 1 10:56:15 Gestatio n period, 8 weeks [id number] Completed 201809/02/2020 8 weeks gestatio n of pregnanc y;Practi ce ID: 0001 Beverley Sun [facility], [facility] 0 17:55:55 Rubella screenin g status [id number] Completed 201809/02/2020 Encounte r for antenata l screenin g, unspecif ied;Benitez rded Elsewher e: No Locat ion: [facility] S ource: EHR Supervisor [employer] elena: N Practi ce ID: 0001 Grabiel lable Time: 04:30:00 PM Beverley Sun [facility], [facility] 0 17:56:34 Antenata l screenin g Completed 201809/02/2020 Encounte r for antenata l screenin g for nuchal transluc ency;Pra ctice ID: 0001 Beverleykaty Sun [facility], [facility] 0 17:57:11 Antenata l screenin g for malforma tion Completed 201809/02/2020 Encounte r for antenata l screenin g for malforma tions;Re corded Elsewher e: No Locat ion: [facility] S ource: EHR Supervisor [employer] elena: N Practi ce ID: 0001 Grabiel lable Time: 08:15:00 AM Beverley Sun jessica, [facility] 0 17:57:13 Gestatio n period, 29 weeks [id number] Completed 201809/02/2020 29 weeks gestatio n of pregnanc y;Record ed Elsewher e: No Locat ion: [facility] S ource: EHR Supervisor [employer] elena: N Practi ce ID: 0001 Grabiel lable Time: 03:45:00 PM Beverley lopez, [facility] 0 17:55:32 Clinical finding Completed 201810/17/2020 Tachycar rishi, unspecif ied;Benitez rded Elsewher e: No [facility]: EHR Supervisor [employer] elena: N Practi ce ID: 0001 Grabiel lable Time: 11:15:00 AM Beverley Sun jessica, [facility] 1 10:55:44 Clinical finding Completed 201809/02/2020 Obesity, unspecif ied;Benitez rded Elsewher e: No [facility] S ource: EHR Supervisor [employer] elena: N Practi ce ID: 0001 Grabiel lable Time: 03:00:00 PM Beverley Sun jessica, [facility] 0 17:55:24 Finding of body mass index [id number] Completed 201809/02/2020 Body mass index (BMI) 40.0-44. 9, adult;Re corded Elsewher e: No Locat ion: [facility] S ource: EHR Supervisor [employer] elena: N Practi ce ID: [id number] Grabiel lable Time: 02:00:00 PM Beverley lopez [facility] 0 17:56:59 Gestatio n period, 35 weeks [id number] Completed 201809/02/2020 35 weeks gestatio n of pregnanc y;Record ed Elsewher e: No Locat ion: [facility] S ource: EHR Supervisor [employer] elena: N Practi ce ID: [id number] Grabiel lable Time: 02:00:00 PM Beverley lopez [facility] 0 17:55:44 Severe obesity complica ting pregnanc y [id number] Completed 201810/17/2020 Obesity complica ting pregnanc y, third trimeste r;Record ed Elsewher e: No Locat ion: [facility] S ource: EHR Supervisor [employer] elena: N Practi ce ID: [id number] Grabiel lable Time: 03:00:00 PM Beverley lopez [facility] 1 10:56:10 Gestatio n period, 38 weeks [id number] Completed 201809/02/2020 38 weeks gestatio n of pregnanc y;Record ed Elsewher e: No [facility]at [facility] N Practi ce ID: [id number] Grabiel lable Time: 11:00:00 AM Beverley lopez [facility] 0 17:55:53 Hyperten tonya in the obstetri c context Completed 201810/17/2020 Pre-exis ting essentia l htn comp pregnanc y, third trimeste r;Practi ce ID: [id number] Beverley lopez, [facility] 1 10:55:52 Attentio n deficit hyperact ivity disorder 131572853 Active 2024 stopped taking medicati on when found out Beverley lopez, [facility] 19:38:30 Mixed anxiety and depressi ve disorder 334756816 Active 2024 Beverley lopez, [facility] 19:37:00 Hyperten sive disorder 89939109 Active 2024 Medina Whitaker CNM [address], [place], [address], [facility] 17:26:39 Headache 94572801 Active 2024 Beverley [facility], [facility] 19:37:14 Pregnanc y 73517123 Active 2024 Beverley lopez, [facility] 19:36:35 Mixed anxiety and depressi ve disorder 121052649 Active 2024 Beverley lopez, [facility] 19:37:00 Headache 60274568 Active 2024 Beverley [facility], [facility] 19:37:14 Past pregnanc y history of gestatio nal hyperten tonya 595805277 Active 2024 2016 pregnanc y start bASA x 2 daily Medina Whitaker CNM [address], [place], [address], [facility] 17:26:14 Attentio n deficit hyperact ivity disorder 857184952 Active 2024 stopped taking medicati on when found out Beverley lopez, [facility] 19:38:30 Obesity 057777599 Active 2024 antenata l testing @ 34wks Sonya lopez, [facility] 07/21/202 5 20:55:07 Hyperten tonya AND/OR vomiting complica ting pregnanc y childbir th AND/OR puerperi 097725497 Active 2024 Medina Whitaker CNM [address], [place], [address], [facility] 5 15:51:32 Notes:Encounter for antenata l screening of mother Recorded Elsewhere: No Location: [facility] Source: EHR Chronic: N Practice ID: [id number] Billable Time: 10:30:00 AM Encounter for screening of mother Practice ID: [id number] Encounter for screening of mother Recorded Elsewhere: No Location: [facility] Source: EHR Chronic: N Practice ID: [id number] Billable Time: 10:30:00 AM Encounter for screening of mother Practice ID: [id number] Problem Notes None recorded. Procedures Surgical History Date Name Laterality Status Provider Name and Address Organization Details Recorded Time 1 Date of Last Pap Smear completed [facility] 02/06/2025 08:37:03 1 extraction of wisdom tooth completed [facility] 02/06/2025 19:33:27 Imaging Results None [...] Prescrib ed Elsewher e: No [facility] [email or web address] [facility] [...] hours if needed 09/02 completed Prescrib ed [facility] e: No Locat ion: [facility] odify By: rocio solorzano DateTime : 10/26/19 [...] Prescrib ed Elsewher e: No Locat ion: [facility] odify By: [email or web address] z Encoun ter DateTime [...] Prescrib ed Elsewher e: No Locat ion: [facility] odify By: [email or web address] Encounte r DateTime : [...] and Address Organization Details Last Updated DateTime 07/03/2025 808248.92586 g 132/81 mm[Hg] Barbie Coronado [facility] 07/03/2025 11:23:56 Date Recorded Body weight Systolic And Diastolic Provider Name and Address Organization Details Last Updated DateTime 07/03/2025 464317.97811 g 132/81 mm[Hg] Zita Khoi [facility] 07/03/2025 15:58:08 Social History Question Answer Notes LastModified by Organizat ion Details LastModified Time Tobacco Smoking Status Never Smoker Beverley lopez, [facility] 03/21/2020 13:16:23 Do You Have An Advance Directive? No Information n ot available 01/07/2025 If You Are , What Was Your Level Of Alcohol Consumption Prior To ? Occasional [email or web address] Information not available 10/17/2020 Are You Blind Or Do You Have Difficulty Seeing? No Information n ot available 03/27/2021 What Is Your Level Of Caffeine Consumption? Occasional [email or web address] Information not available 10/17/2020 In The 14 Days Before Symptom Onset, Have You Had Close Contact With A Laboratory-confirm ed COVID-19 While That Case Was Ill? No [email or web address] Information n ot available 03/27/2021 In The 14 Days Before Symptom Onset, Have You Had Close Contact With A Person Who Is Under Investigation For COVID-19 While That Person Was Ill? No [email or web address] Information not available 03/27/2021 Have You Been To An Area Known To Be High Risk For COVID-19? No [email or web address] Information not available 03/27/2021 Are You Deaf Or Do You Have Serious Difficulty Hearing? No [email or web address] Information not available 03/27/2021 What Type Of Diet Are You Following? REGULAR [email or web address] Information n ot available 03/27/2021 What Is The Highest Grade Or Level Of School You Have Completed Or The Highest Degree You Have Received? [id number] Information not available 01/07/2025 What Was The Date Of Your Most Recent Tobacco Screening? 02/06/2025 [email or web address] Information not available 02/06/2025 Have You Ever Been Counseled For Unhealthy Alcohol Use? No [email or web address] Information not available 10/17/2020 Do You Use Protection During Sex? No Information not available 01/07/2025 Do You Use Your Seat Belt Or Car Seat Routinely? Yes [email or web address] Information not available 03/27/2021 Do You Have Smoke And Carbon Monoxide Detectors In Your Home? Yes [email or web address] Information not available 03/27/2021 How Much Tobacco Do You Smoke? No Information not available 03/21/2020 Do You Use Sunscreen Routinely? Yes [email or web address] Information not available 03/27/2021 Has Tobacco Cessation Counseling Been Provided? No [email or web address] Information not available 10/17/2020 Have You Used IV Drugs? No Information not available 01/07/2025 Do You Have Difficulty Walking Or Climbing Stairs? No [email or web address] Information not available 02/06/2025 Sex: Unknown Functional Status Question Answer Note LastModified by Organizat ion Details LastModified Time Do you use any illicit or recreational drugs? No [email or web address] Information not available 10/17/2020 Do you or have you ever used any other forms of tobacco or nicotine? No [email or web address] Information not available 10/17/2020 What is your level of alcohol consumption? None [email or web address] Information not available 02/06/2025 Do you or have you ever used smokeless tobacco? Never used smokeless tobacco Information not available 03/21/2020 Are you able to walk independently without assistance or assistive devices? YESWOREST [email or web address] Information not available 03/27/2021 Are you able to care for yourself independently? Yes [email or web address] Information not available 02/06/2025 Do you have difficulty dressing, bathing, grooming, or toileting? No [email or web address] Information not available 02/06/2025 Do you or have you ever used e-cigarettes or vape? Never used electronic cigarettes [email or web address] Information not available 03/21/2020 What is your exercise level? Occasional [email or web address] Information not available 03/21/2020 Mental Status Question Answer Note LastModified by Organization D etails LastModified Time Do you feel stressed (tense, restless, nervous, or anxious, or unable to sleep at night)? [id number] [email or web address] Information not available 03/27/2021 Family History Relationship Description Onset Age of this Age Resolved Age Notes LastModified by Organization Details LastModified Time Mother Disorder of thyroid gland [email or web address] Not available 03/21 13:15:49 Father Diabetes mellitus [email or web address] Not available 03/21 13:16:06 Maternal Grandfather Diabetes mellitus [email or web address] Not available 03/21 13:16:06 Maternal Grandmother Malignant [...] ICD10 Code Diagnosis IMO Codes Diagnosis Note [id number] Lobito Salinas MD [facility] [address] [address] 06/12/2025 11:17:33 06/12/2025 12:05:04 Large for gestation age fetus 928940388 O36.60X0 Z3A.31 58024873 [id number] Medina Whitaker [address] [place] [address] 06/12/2025 11:18:32 06/12/2025 14:07:15 Gestation period, 31 weeks 28150553 Z3A.31 6537814 [id number] Medina Whitaker [address] [place] [address] 06/26/2025 14:50:38 06/26/2025 15:53:19 Gestation period, 33 weeks 64014285 Z3A.33 6970271 [id number] Medina Whitaker [facility] [address] [place] [address] 06/26/2025 15:32:15 06/26/2025 17:47:00 Hypertension AND/OR vomiting complicating childbirth AND/OR puerperium 491967295 O13.3 6114356 [id number] Lobito Salinas MD [facility] [address] [place] [address] 07/03/2025 09:24:44 07/03/2025 10:27:55 -induced hypertension 52046529 O13.3 Z3A.34 724600 [id number] Medina Whitaker [facility] [address] [place] [address] 07/03/2025 09:24:58 07/03/2025 16:17:39 Maternal obesity complicating , childbirth and the puerperium, antepartum 0032148101 07 O99.210 [id number] rf phentermin e, ok for one more refill then must take break [id number] Medina Whitaker CNM [facility] [address] [address] 07/03/2025 09:25:15 07/03/2025 11:45:20 Gestation period, 34 weeks 27534261 Z3A.34 [id number] Health Concerns Section Related Observation LastModified by Organization Detai ls LastModified Time None Recorded Concern Status LastModified by Organization Details LastModified Time None Recorded Payers Encounter Date Sequence Insurance Name Policy Number Policy [place] Covered Member ID Ventura Member ID Guarantor Name 07/03/2025 1 [facility] [id number] Apolinar Rivers [id number] Whit Rivers Notes Date Note Type Note Provider Name and Address Organization Details Recorded Time 07/03/2025 text/html Generic HPI TemplateReported by Patient Medina Whitaker CNM [address], [place], [address], [facility] 07/03/2025 11:34:57 OBGyn Episode Ob Episode Information Episode Created Date Number of Fetuses Patient Bloodtype Patient rh Status Prepregnancy Weight lbs Domestic Partner Domestic Partner Phone Father Name Service Manager Status 02/07/20 25 1 O Positive 291 Apolinar Rivers OPEN Fetus Data First Name Last Name Admitted to NICU Weight (g) Sex Living Outcome Pediatric Complications Fetus ID Race Codes Race Delivery Type [id number] Problems Problem Notes Problem Name Start Date End Date Resolution Snomed Code Not e Attention deficit hyperactivity disorder 02/06/2025 431841609 stopped taking medication when found out Past history of gestational hypertension 02/06/2025 430485346 2016 pregnancys tart bASA x 2 daily Obesity 02/07/2025 244150765 testing @ 34wks Headache 02/06/2025 66286224 Mixed anxiety and depressive disorder 02/06/2025 887515668 Hypertension AND/OR vomiting complicating childbirth AND/OR puerperium 06/26/2025 149234619 Alfa Calculation Initial Alfa Date Initial Exam [...] Weight in lbs Pre/Post Dialysis Refused Weight 289.858952015843 BP Diastolic BP Location Tested BP Systolic [...] Weight in lbs Pre/Post Dialysis Refused Weight 294.066316597863 BP Diastolic BP Location Tested BP Systolic [...] Type Weight in lbs Pre/Post Dialysis Refused 297.240985372871 BP Diastolic BP Location Tested BP Systolic [...] Type Weight in lbs Pre/Post Dialysis Refused 302.998209693889 BP Diastolic BP Location Tested BP Systolic [...] Weight in lbs Pre/Post Dialysis Refused Weight 305.060929199529 BP Diastolic BP Location Tested BP Systolic [...] Weight in lbs Pre/Post Dialysis Refused Weight 306.484387836290 BP Diastolic BP Location Tested BP Systolic [...] Weight in lbs Pre/Post Dialysis Refused Weight 305.261935705040 BP Diastolic BP Location Tested BP Systolic [...] Weight in lbs Pre/Post Dialysis Refused Weight 307.996983667091 BP Diastolic BP Location Tested BP Systolic BP Type 90 140 Fetus Heart Rate Present Fetus Movement A Yes Comments discussed elevated bp start weekly bpp, denies any sxs, plan IOL nov , precautions and education f/u one week Flowsheet [...] Type Weight in lbs Pre/Post Dialysis Refused 308.746650684742 BP Diastolic BP Location Tested BP Systolic BP Type 81 L arm 132 sitting Fetus Heart Rate Present Fetus Movement A Yes Comments Flowsheet Date 07/03/2025 Bunn Score Blood Edema Fundus Height Fundus Units Glucose Ketones Leukocytes Nitrite Labor Signs Protein Cervic Dilation Cervic Effacement Cervic Station Type Weight in lbs Pre/Post Dialysis Refused 308.614118528486 BP Diastolic BP Location Tested BP Systolic [...] Weight in lbs Pre/Post Dialysis Refused Weight 310.810485817080 BP Diastolic BP Location Tested BP Systolic BP Type 85 L arm 128 sitting Fetus Heart Rate Present Fetus Movement A Yes Comments Flowsheet Date 07/10/2025 Bunn Score Blood Edema Fundus Height Fundus Units Glucose Ketones Leukocytes Nitrite Labor Signs Protein Cervic Dilation Cervic Effacement Cervic Station Type Weight in lbs Pre/Post Dialysis Refused 310.327991741168 BP Diastolic BP Location Tested BP Systolic [...] Type Weight in lbs Pre/Post Dialysis Refused 311.244197097819 BP Diastolic BP Location Tested BP Systolic [...] Weight in lbs Pre/Post Dialysis Refused Weight 312.675482030966 BP Diastolic BP Location Tested BP Systolic BP Type 84 L arm 131 sitting Fetus Heart Rate Present Fetus Movement A Yes Comments Flowsheet Date 07/24/2025 Bunn Score Blood Edema Fundus Height Fundus Units Glucose Ketones Leukocytes Nitrite Labor Signs Protein Cervic Dilation Cervic Effacement Cervic Station 1cm 50% -2 Type Weight in lbs Pre/Post Dialysis Refused Weight 312.205509329716 BP Diastolic BP Location Tested BP Systolic BP Type 84 L arm 131 sitting Fetus Heart Rate Present Fetus Movement Comments bpp 06/21 +FM, IOL planned f or tuesday reviewed [...]
--- OUTSIDE RECORDS SUMMARY | 2025-07-26 05:56 | XMS_ITS | Continuity of Care Document ---
Author Organization [facility] Address [address] [place] [address] Care Team Providers Care Yard Person Name Role Phone HA MOTRON Primary Care Provider Assessment No assessment recorded. Plan of Treatment Reminders Order Date Submit Date Provider Last Modified By Organization Details Last Modified Time Details Appointments [place] 2024 06:00A M VLILA BurnsM Not available Not available Not available [...] d. Imaging non-str ess test 2024 025 [email or web address] [address], [address], [place], [address], 07/24/2025 16:13:38 Medication Orders None recorde d. Patient TargetsNo targets recorded. Patient InstructionsNo instructions recorded. Reason for Referral None Reported. Results Created Date Observation Date Name Description Value Unit Range Abnormal Flag Note LastModifiedBy Organization Detail LastModifiedTime 02/15/2002/14/2025 [UNIT Y] ANEUP LOIDY NIPT fraction 3.9% normal Not Available [facility] [address], [place], [address], 02/14/2025 01:55:32 02/15/20 25 02/14/2025 [UNIT Y] ANEUP LOIDY NIPT 22Q11.2 microdeletio n LOW RISK <1 in 10,000 normal Not Available [facility] [address], [place], [address], 02/14/2025 01:55:32 02/15/20 25 02/14/2025 [UNIT Y] ANEUP LOIDY NIPT sex chromosome aneuploidy NOT DETECT ED normal Not Available [facility] [address], [place], [address], 02/14/2025 01:55:32 02/15/20 25 02/14/2025 [UNIT Y] ANEUP LOIDY NIPT monosomy X LOW RISK <1 in 10,000 normal Not Available [facility] [address], [place], [address], 02/14/2025 01:55:32 02/15/20 25 02/14/2025 [UNIT Y] ANEUP LOIDY NIPT trisomy 13 LOW RISK <1 in 10,000 normal Not Available [facility] [address], [place], [address], 02/14/2025 01:55:32 02/15/20 25 02/14/2025 [UNIT Y] ANEUP LOIDY NIPT trisomy 18 LOW RISK <1 in 10,000 normal Not Available [facility] [address], [place], [address], 02/14/2025 01:55:32 02/15/20 25 02/14/2025 [UNIT Y] ANEUP LOIDY NIPT trisomy 21 LOW RISK <1 in 10,000 normal Not Available [facility] [address], [place], [address], 02/14/2025 01:55:32 02/15/20 25 02/14/2025 [UNIT Y] ANEUP LOIDY NIPT sex MALE normal Not Available [facility] [address], [place], [address], 02/14/2025 01:55:32 02/15/20 25 02/14/2025 [UNIT Y] ANEUP LOIDY NIPT gestation SINGLE TON normal Not Available [facility] [address], [place], [address], 02/14/2025 01:55:32 02/15/20 25 02/14/2025 [UNIT Y] ANEUP LOIDY NIPT for detailed report, see pdf See PDF normal Not Available [facility] [address], [place], [address], 02/14/2025 01:55:32 02/18/20 25 02/17/2025 [UNIT Y] OTTO Islas sickle cell disease/beta -thalassemia /hemoglobino pathies carrier screen NEGATI VE normal Not Available [facility] [address], [place], [address], 02/17/2025 10:24:39 02/18/20 25 02/17/2025 [UNIT Y] OTTO Islas alpha-thalas semia carrier screen NEGATI VE normal Not Available [facility] [address], [place], [address], 02/17/2025 10:24:39 02/18/20 25 02/17/2025 [UNIT Y] OTTO LANGFORD Janel cystic fibrosis carrier screen NEGATI VE normal Not Available [facility] [address], [place], [address], 02/17/2025 10:24:39 02/18/20 25 02/17/2025 [UNIT Y] OTTO LANGFORD Janel spinal muscular atrophy carrier screen NEGATI VE 2 SMN1 copies , SNP not presen t normal Not Available [facility] [address], [place], [address], 02/17/2025 10:24:39 02/18/20 25 02/17/2025 [UNIT Y] OTTO LANGFORD Janel for detailed report, see pdf See PDF normal Not Available [facility] [address], [place], [address], 02/17/2025 10:24:39 02/07/20 25 02/06/2025 CBC W/DIF F WBC 12.0 10'3/ uL 3.5-10 .5 high Not Available [facility] (Lab) [address], [place], [address], 02/07/2025 13:12:55 02/07/20 25 02/06/2025 CBC W/DIF F RBC 4.52 10'6/ uL (based on docume nted legal sex) 3.80-5 .20 Not Available [facility] (Lab) [address], [place], [address], 02/07/2025 13:12:55 02/07/20 25 02/06/2025 CBC W/DIF F HGB 12.4 g/dL (based on docume nted legal sex) 11.6-1 5.4 Not Available [facility] (Lab) [address] [place], [address], 02/07/2025 13:12:55 02/07/20 25 02/06/2025 CBC W/DIF F HCT 38.9 % (based on docume nted legal sex) 34.0-4 5.0 Not Available [facility] (Lab) [address], [place], [address], 02/07/2025 13:12:55 02/07/20 25 02/06/2025 CBC W/DIF F MCV 86.1 fL 80.0-9 9.0 Not Available [facility] (Lab) [address], [place], [address], 02/07/2025 13:12:55 02/07/20 25 02/06/2025 CBC W/DIF F MCH 27.4 pg 27.0-3 4.0 Not Available [facility] (Lab) [address], [place], [address], 02/07/2025 13:12:55 02/07/20 25 02/06/2025 CBC W/DIF F MCHC 31.9 g/dL 32.0-3 5.5 low Not Available [facility] (Lab) [address], [place], [address], 02/07/2025 13:12:55 02/07/20 25 02/06/2025 CBC W/DIF F RDW 12.9 % 11.0-1 5.0 Not Available [facility] (Lab) [address], [place], [address], 02/07/2025 13:12:55 02/07/20 25 02/06/2025 CBC W/DIF F plt 281 10'3/ uL 150-40 0 Not Available [facility] (Lab) [address] [place], [address], 02/07/2025 13:12:55 02/07/20 25 02/06/2025 CBC W/DIF F MPV 11.0 fL 8.8-12 .1 Not Available [facility] (Lab) [address], [place], [address], 02/07/2025 13:12:55 02/07/20 25 02/06/2025 CBC W/DIF F NRBC's 0.0 % 0.0 Not Available [facility] (Lab) [address] [facility], [place], [address], 02/07/2025 13:12:55 02/07/20 25 02/06/2025 CBC W/DIF F absolute NRBCs 0.0 10'3/ uL no refere nce range establ ished Not Available [facility] (Lab) [address] [facility], [place], [address], 02/07/2025 13:12:55 02/07/20 25 02/06/2025 CBC W/DIF F neutrophils 72.5 % 34.0-7 3.0 Not Available [facility] (Lab) [address] [facility], [place], [address], 02/07/2025 13:12:55 02/07/20 25 02/06/2025 CBC W/DIF F lymphocytes 20.4 % 15.0-5 0.0 Not Available [facility] (Lab) [address] [facility], [place], [address], 02/07/2025 13:12:55 02/07/20 25 02/06/2025 CBC W/DIF F monocytes 5.9 % 1.0-15 .0 Not Available [facility] (Lab) [address] [facility], [place], [address], 02/07/2025 13:12:55 02/07/20 25 02/06/2025 CBC W/DIF F eosinophils 0.6 % 0.0-8. 0 Not Available [facility] (Lab) [address] [facility], [place], [address], 02/07/2025 13:12:55 02/07/20 25 02/06/2025 CBC W/DIF F basophils 0.3 % 0.0-2. 0 Not Available [facility] (Lab) [address] [facility], [place], [address], 02/07/2025 13:12:55 02/07/2002/06/2025 CBC W/DIF F immature granulocytes 0.3 % no define d refere nce range Immat ure Granu locyt es (IG) repre sents autom ated enume ratio n of Metam yeloc ytes, Myelo cytes and Promy elocy shlomo when IG is < 5%. Blast s are not inclu ded in IG and repor ruy separ ately if prese nt. Not Available [facility] (Lab) [address] [facility], [place], [address], 02/07/2025 13:12:55 02/07/20 25 02/06/2025 CBC W/DIF F absolute neutrophils 8.7 10'3/ uL 1.5-8. 0 high Not Available [facility] (Lab) [address] [facility], [place], [address], 02/07/2025 13:12:55 02/07/20 25 02/06/2025 CBC W/DIF F absolute lymphocytes 2.4 10'3/ uL 1.0-4. 0 Not Available [facility] (Lab) [address] [facility], [place], [address], 02/07/2025 13:12:55 02/07/20 25 02/06/2025 CBC W/DIF F absolute monocytes 0.7 10'3/ uL 0.2-1. 0 Not Available [facility] (Lab) [address] [facility], [place], [address], 02/07/2025 13:12:55 02/07/20 25 02/06/2025 CBC W/DIF F absolute eosinophils 0.1 10'3/ uL 0.0-0. 6 Not Available [facility] (Lab) [address] [facility], [place], [address], 02/07/2025 13:12:55 02/07/20 25 02/06/2025 CBC W/DIF F absolute basophils 0.0 10'3/ uL 0.0-0. 3 Not Available [facility] (Lab) [address], [place], [address], 02/07/2025 13:12:55 02/07/20 25 02/06/2025 CBC W/DIF F absolute immature granulocytes 0.0 [...] hyman book. nm.or g/gen derx Not Available [facility] (Lab) [address], [place], [address], 02/07/2025 13:12:55 02/07/2002/06/2025 HEPAT ITIS B SURFA CE ANTIG EN hepatitis B surface antigen Non-re active non-re active This assay was perfo rmed using [employer] ratio n reage nts and test kits. Value s obtai dexter with other assay metho ds or kits canno t be used inter lopez eably . Not Available [facility] (Lab) [address] , [place], [address], 02/07/2025 13:12:55 02/07/2002/06/2025 HIV 1/2 ANTIG EN/AN TIBOD Y, REFLE X CONFI RMATI ON HIV antigen/anti body Nonrea ctive nonrea ctive HIV-1 antig en and HIV-1 /HIV- 2 antib odies were not detec ruy. No labor atory evide nce of HIV infec tion. Not Available [facility] (Lab) [address] , [place], [address], 02/07/2025 13:12:56 02/07/2002/06/2025 HEPAT ITIS C ANTIB ANITA SCREE N, REFLE X TO CONFI RMATI ON hepatitis C antibody Non-re active non-re active Antib odies to HCV Not Detec ruy, does not exclu de the possi bilit y of expos ure to HCV. Not Available [facility] (Lab) [address], [place], [address], 02/07/2025 13:12:56 02/07/2002/06/2025 RUBEL LA IGG ANTIB ANITA, QUANT rubella antibodies, IgG Reacti ve reacti ve Not Available [facility] (Lab) [address] [facility], [place], [address], 02/07/2025 13:12:56 02/07/20 25 02/06/2025 RUBEL LA IGG ANTIB ANITA, QUANT rubella antibodies, IgG quant 61.9 IU/mL >=10 Non-r eacti ve (Non- Immun e) <10 IU/mL React essie (Immu ne) > or = 10 IU/mL Not Available [facility] (Lab) [address] [facility], [place], [address], 02/07/2025 13:12:56 02/07/2002/06/2025 TYPE/ RH/SC REEN ABO/Rh type O POS Not Available [facility] (Lab) [address] [facility], [place], [address], 02/07/2025 13:12:57 02/07/2002/06/2025 TYPE/ RH/SC REEN antibody screen NEG Not Available [facility] (Lab) [address] [facility], [place], [address], 02/07/2025 13:12:57 02/07/20 25 02/06/2025 TYPE/ RH/SC REEN exp date 2024 23:59 Not Available [facility] (Lab) [address] [facility], [place], [address], 02/07/2025 13:12:57 02/07/20 25 02/06/2025 RPR SCREE N, REFLE X TITER /CONF IRMAT ION RPR qualitative Nonrea ctive nonrea ctive Not Available [facility] (Lab) [address] [facility], [place], [address], 02/07/2025 13:12:57 02/07/20 25 02/06/2025 HEMOG LOBIN [...] >8.0% Actio n sugge sted Not Available [facility] (Lab) [address] [facility], [place], [address], 02/07/2025 13:12:57 02/07/2002/06/2025 CULTU RE: URINE result report SEE RESULT S BELOW Test: Cultu re: Urine Speci men Sourc e: Urine - Clean Catch Speci men Type: Urine Speci men Date: 2024 1737 Resul t Date: 2024 0700 Resul t Statu s: Final resul t Abnor mal: No Resul ting Lab: [facility] [address] [facility] [address] Tel: CULTU RE ----- ----- ----- --- Cultu re resul t (>=3 organ isms prese nt) indic ates possi ble conta minat ion. Repea t cultu re if sympt oms indic ate. Not Available [facility] (Lab) [address] [facility], [place], [address], 02/08/2025 08:03:32 02/07/20 25 02/06/2025 drug scree n, urine Amphetamines : negati ve Not Available [facility] [address], [place], [address], 02/06/2025 18:30:19 02/07/20 25 02/06/2025 drug scree n, urine Cannabinoids : negati ve Not Available [facility] [address], [place], [address], 02/06/2025 18:30:19 02/07/20 25 02/06/2025 drug scree n, urine Cocaine: negati ve Not Available [address], [place], [address], 02/06/2025 18:30:19 02/07/20 25 02/06/2025 drug scree n, urine Opiates: negati ve Not Available [facility] [address], [place], [address], 02/06/2025 18:30:19 02/07/20 25 02/06/2025 drug scree n, urine Phenocyclidi ne: negati ve Not Available [facility] [address], [place], [address], 02/06/2025 18:30:19 02/07/20 25 02/06/2025 drug scree n, urine Barbiturates : negati ve Not Available [facility] [address], [place], [address], 02/06/2025 18:30:19 02/07/20 25 02/06/2025 drug scree n, urine Benzodiazepi brayan: negati ve Not Available [address] [address], [place], [address], 02/06/2025 18:30:19 02/07/20 25 02/06/2025 drug scree n, urine Ethanol: negati ve Not Available [address], [place], [address], 02/06/2025 18:30:19 02/07/20 25 02/06/2025 drug scree n, urine Hallucinogen s: negati ve Not Available [facility] [address], [place], [address], 02/06/2025 18:30:19 02/07/20 25 02/06/2025 drug scree n, urine Inhalants: negati ve Not Available [address], [place], [address], 02/06/2025 18:30:19 02/07/20 25 02/06/2025 drug scree n, urine Anabolic Steroids: negati ve Not Available [address], [place], [address], 02/06/2025 18:30:19 02/07/20 25 02/06/2025 drug scree n, urine Other: negati ve Not Available [facility] [address], [place], [address], 02/06/2025 18:30:19 05/15/20 25 05/15/2025 HEMOG LOBIN (HGB) HGB 10.9 g/dL (based on docume nted legal sex) 11.6-1 5.4 low Not Available [facility] (Lab) [address] [place], [address], 05/16/2025 09:55:38 05/15/2005/15/2025 HEMAT OCRIT (HCT) HCT 35.7 % (based on docume nted legal sex) 34.0-4 5.0 Not Available [facility] (Lab) [address] [place], [address], 05/16/2025 09:55:39 05/15/2005/15/2025 CBC W/DIF F WBC 14.6 10'3/ uL 3.5-10 .5 high Not Available [facility] (Lab) [address], [place], [address], 05/16/2025 09:55:39 05/15/2005/15/2025 CBC W/DIF F RBC 4.01 10'6/ uL (based on docume nted legal sex) 3.80-5 .20 Not Available [facility] (Lab) [address] [facility], [place], [address], 05/16/2025 09:55:39 05/15/2005/15/2025 CBC W/DIF F HGB 10.9 g/dL (based on docume nted legal sex) 11.6-1 5.4 low Not Available [facility] (Lab) [address] [facility], [place], [address], 05/16/2025 09:55:39 05/15/2005/15/2025 CBC W/DIF F HCT 35.7 % (based on docume nted legal sex) 34.0-4 5.0 Not Available [facility] (Lab) [address], [place], [address], 05/16/2025 09:55:39 05/15/2005/15/2025 CBC W/DIF F MCV 89.0 fL 80.0-9 9.0 Not Available [facility] (Lab) [address] [facility], [place], [address], 05/16/2025 09:55:39 05/15/2005/15/2025 CBC W/DIF F MCH 27.2 pg 27.0-3 4.0 Not Available [facility] (Lab) [address] [facility], [place], [address], 05/16/2025 09:55:39 05/15/2005/15/2025 CBC W/DIF F MCHC 30.5 g/dL 32.0-3 5.5 low Not Available [facility] (Lab) [address] [facility], [place], [address], 05/16/2025 09:55:39 05/15/2005/15/2025 CBC W/DIF F RDW 14.5 % 11.0-1 5.0 Not Available [facility] (Lab) [address] [facility], [place], [address], 05/16/2025 09:55:39 05/15/2005/15/2025 CBC W/DIF F plt 218 10'3/ uL 150-40 0 Not Available [facility] (Lab) [address] [facility], [place], [address], 05/16/2025 09:55:39 05/15/2005/15/2025 CBC W/DIF F MPV 11.1 fL 8.8-12 .1 Not Available [facility] (Lab) [address] [facility], [place], [address], 05/16/2025 09:55:39 05/15/2005/15/2025 CBC W/DIF F NRBC's 0.0 % 0.0 Not Available [facility] (Lab) [address] [facility], [place], [address], 05/16/2025 09:55:39 05/15/2005/15/2025 CBC W/DIF F absolute NRBCs 0.0 10'3/ uL no refere nce range establ ished Not Available [facility] (Lab) [address] [facility], [place], [address], 05/16/2025 09:55:39 05/15/2005/15/2025 CBC W/DIF F neutrophils 78.7 % 34.0-7 3.0 high Not Available [facility] (Lab) [address] [facility], [place], [address], 05/16/2025 09:55:39 05/15/2005/15/2025 CBC W/DIF F lymphocytes 15.0 % 15.0-5 0.0 Not Available [facility] (Lab) [address] [facility], [place], [address], 05/16/2025 09:55:39 05/15/2005/15/2025 CBC W/DIF F monocytes 4.9 % 1.0-15 .0 Not Available [facility] (Lab) [address] [facility], [place], [address], 05/16/2025 09:55:39 05/15/2005/15/2025 CBC W/DIF F eosinophils 0.6 % 0.0-8. 0 Not Available [facility] (Lab) [address] [facility], [place], [address], 05/16/2025 09:55:39 05/15/2005/15/2025 CBC W/DIF F basophils 0.3 % 0.0-2. 0 Not Available [facility] (Lab) [address] [facility], [place], [address], 05/16/2025 09:55:39 05/15/2005/15/2025 CBC W/DIF F immature granulocytes 0.5 % no define d refere nce range Immat ure Granu locyt es (IG) repre sents autom ated enume ratio n of Metam yeloc ytes, Myelo cytes and Promy elocy shlomo when IG is < 5%. Blast s are not inclu ded in IG and repor ruy separ ately if prese nt. Not Available [facility] (Lab) [address] [facility], [place], [address], 05/16/2025 09:55:39 05/15/2005/15/2025 CBC W/DIF F absolute neutrophils 11.4 10'3/ uL 1.5-8. 0 high Not Available [facility] (Lab) [address] [facility], [place], [address], 05/16/2025 09:55:39 05/15/2005/15/2025 CBC W/DIF F absolute lymphocytes 2.2 10'3/ uL 1.0-4. 0 Not Available [facility] (Lab) [address] [facility], [place], [address], 05/16/2025 09:55:39 05/15/2005/15/2025 CBC W/DIF F absolute monocytes 0.7 10'3/ uL 0.2-1. 0 Not Available [facility] (Lab) [address] [facility], [place], [address], 05/16/2025 09:55:39 05/15/2005/15/2025 CBC W/DIF F absolute eosinophils 0.1 10'3/ uL 0.0-0. 6 Not Available [facility] (Lab) [address] [facility], [place], [address], 05/16/2025 09:55:39 05/15/2005/15/2025 CBC W/DIF F absolute basophils 0.1 10'3/ uL 0.0-0. 3 Not Available [facility] (Lab) [address] [facility], [place], [address], 05/16/2025 09:55:39 05/15/2005/15/2025 CBC W/DIF F absolute [...] hyman book. nm.or g/gen derx Not Available [facility] (Lab) [address], [place], [address], 05/16/2025 09:55:39 05/15/2005/15/2025 GTT - GESTA KHANH L PRIMITIVO Janel, ACOG OB glucose, 1 hour screen 115 mg/dL 70-[address] [facility] (Lab) [address] [facility], [place], [address], 05/16/2025 09:55:40 05/15/20 25 05/15/2025 URIC ACID uric acid 4.1 mg/dL 2.3-6. 6 Not Available [facility] (Lab) [address] [place], [address], 05/16/2025 09:55:40 05/15/20 25 05/15/2025 CMP(C OMPRE HENSI VE METAB OLIC PANEL ) sodium 138 mmol/ L 133-14 6 Not Available [facility] (Lab) [address] [facility], [place], [address], 05/16/2025 09:55:41 05/15/20 25 05/15/2025 CMP(C OMPRE HENSI VE METAB OLIC PANEL ) potassium 4.1 mmol/ L 3.5-5. 1 Not Available [facility] (Lab) [address] [place], [address], 05/16/2025 09:55:41 05/15/20 25 05/15/2025 CMP(C OMPRE HENSI VE METAB OLIC PANEL ) chloride 104 mmol/ L 98-107 Not Available [facility] (Lab) [address] [place], [address], 05/16/2025 09:55:41 05/15/20 25 05/15/2025 CMP(C OMPRE HENSI VE METAB OLIC PANEL ) carbon dioxide 24 mmol/ L 21-31 Not Available [facility] (Lab) [address] [place], [address], 05/16/2025 09:55:41 05/15/20 25 05/15/2025 CMP(C OMPRE HENSI VE METAB OLIC PANEL ) anion gap 10 mmol/ L 4-13 Not Available [facility] (Lab) [address] [place], [address], 05/16/2025 09:55:41 05/15/20 25 05/15/2025 CMP(C OMPRE HENSI VE METAB OLIC PANEL ) blood urea nitrogen 7 mg/dL 7-[address] [facility] (Lab) [address] [facility], [place], [address], 05/16/2025 09:55:41 05/15/20 25 05/15/2025 CMP(C OMPRE HENSI VE METAB OLIC PANEL ) creatinine 0.55 mg/dL 0.60-1 .30 low Not Available [facility] (Lab) [address] [facility], [place], [address], 05/16/2025 09:55:41 05/15/20 25 05/15/2025 CMP(C OMPRE HENSI VE METAB OLIC PANEL ) egfrcr (CKD-epi 2020) >90 mL/mi n/1.7 3_m2 >=60 Not Available [facility] (Lab) [address] [facility], [place], [address], 05/16/2025 09:55:41 05/15/2005/15/2025 CMP(C OMPRE HENSI VE METAB OLIC PANEL ) calcium 8.7 mg/dL 8.3-10 .5 Not Available [facility] (Lab) [address] [place], [address], 05/16/2025 09:55:41 05/15/2005/15/2025 CMP(C OMPRE HENSI VE METAB OLIC PANEL ) glucose 115 mg/dL 70-100 high Not Available [facility] (Lab) [address] [place], [address], 05/16/2025 09:55:41 05/15/2005/15/2025 CMP(C OMPRE HENSI VE METAB OLIC PANEL ) protein, total 5.7 g/dL 6.4-8. 3 low Not Available [facility] (Lab) [address] [place], [address], 05/16/2025 09:55:41 05/15/20 25 05/15/2025 CMP(C OMPRE HENSI VE METAB OLIC PANEL ) albumin 3.1 g/dL 3.5-5. 0 low Not Available [facility] (Lab) [address] [facility], [place], [address], 05/16/2025 09:55:41 05/15/20 25 05/15/2025 CMP(C OMPRE HENSI VE METAB OLIC PANEL ) ALT 9 units /L 9-43 Not Available [facility] (Lab) [address] [facility], [place], [address], 05/16/2025 09:55:41 05/15/20 25 05/15/2025 CMP(C OMPRE HENSI VE METAB OLIC PANEL ) alkaline phosphatase 114 units /L 34-104 high Not Available [facility] (Lab) [address] [facility], [place], [address], 05/16/2025 09:55:41 05/15/20 25 05/15/2025 CMP(C OMPRE HENSI VE METAB OLIC PANEL ) AST 11 units /L 13-39 low Not Available [facility] (Lab) [address] [facility], [place], [address], 05/16/2025 09:55:41 05/15/2005/15/2025 CMP(C OMPRE HENSI VE METAB OLIC PANEL ) bilirubin, total 0.3 mg/dL 0.2-1. 2 Not Available [facility] (Lab) [address] [place], [address], 05/16/2025 09:55:41 05/15/2005/15/2025 HIV 1/2 ANTIG EN/AN TIBOD Y, REFLE X CONFI RMATI ON HIV antigen/anti body Nonrea ctive nonrea ctive HIV-1 antig en and HIV-1 /HIV- 2 antib odies were not detec ruy. No labor atory evide nce of HIV infec tion. Not Available [facility] (Lab) [address], [place], [address], 05/16/2025 09:55:41 05/15/20 25 05/15/2025 PROTE IN/CR EATIN INE RATIO , URINE creatinine, urine 13.0 mg/dL R-No refer ence range estab lishe d for this assay Not Available [facility] (Lab) [address], [place], [address], 05/16/2025 09:55:42 05/15/20 25 05/15/2025 PROTE IN/CR EATIN INE RATIO , URINE protein, urine <4 mg/dL R-No refer ence range estab lishe d for this assay Not Available [facility] (Lab) [address], [place], [address], 05/16/2025 09:55:42 05/15/20 25 05/15/2025 PROTE IN/CR [...] fican t prote inuri a. Not Available [facility] (Lab) [address], [place], [address], 05/16/2025 09:55:42 05/15/20 25 05/15/2025 RPR SCREE N, REFLE X TITER /CONF IRMAT ION RPR qualitative Nonrea ctive nonrea ctive Not Available [facility] (Lab) [address], [place], [address], 05/16/2025 09:55:42 06/26/20 25 06/26/2025 PROTE IN/CR EATIN INE RATIO , URINE creatinine, urine 177.6 mg/dL R-No refer ence range estab lishe d for this assay Not Available [facility] (Lab) [address], [place], [address], 06/27/2025 04:29:05 06/26/20 25 06/26/2025 PROTE IN/CR EATIN INE RATIO , URINE protein, urine 15 mg/dL R-No refer ence range estab lishe d for this assay Not Available [facility] (Lab) [address], [place], [address], 06/27/2025 04:29:05 06/26/20 25 06/26/2025 PROTE IN/CR [...] fican t prote inuri a. Not Available [facility] (Lab) [address], [place], [address], 06/27/2025 04:29:05 06/26/20 25 06/26/2025 CBC W/DIF F WBC 13.4 10'3/ uL 3.5-10 .5 high Not Available [facility] (Lab) [address], [place], [address], 06/27/2025 04:29:05 06/26/20 25 06/26/2025 CBC W/DIF F RBC 4.22 10'6/ uL (based on docume nted legal sex) 3.80-5 .20 Not Available [facility] (Lab) [address], [place], [address], 06/27/2025 04:29:05 06/26/20 25 06/26/2025 CBC W/DIF F HGB 11.9 g/dL (based on docume nted legal sex) 11.6-1 5.4 Not Available [facility] (Lab) [address], [place], [address], 06/27/2025 04:29:05 06/26/2006/26/2025 CBC W/DIF F HCT 37.5 % (based on docume nted legal sex) 34.0-4 5.0 Not Available [facility] (Lab) [address], [place], [address], 06/27/2025 04:29:05 06/26/2006/26/2025 CBC W/DIF F MCV 88.9 fL 80.0-9 9.0 Not Available [facility] (Lab) [address], [place], [address], 06/27/2025 04:29:05 06/26/2006/26/2025 CBC W/DIF F MCH 28.2 pg 27.0-3 4.0 Not Available [facility] (Lab) [address], [place], [address], 06/27/2025 04:29:05 06/26/2006/26/2025 CBC W/DIF F MCHC 31.7 g/dL 32.0-3 5.5 low Not Available [facility] (Lab) [address], [place], [address], 06/27/2025 04:29:05 06/26/2006/26/2025 CBC W/DIF F RDW 14.6 % 11.0-1 5.0 Not Available [facility] (Lab) [address], [place], [address], 06/27/2025 04:29:05 06/26/2006/26/2025 CBC W/DIF F plt 224 10'3/ uL 150-40 0 Not Available [facility] (Lab) [address] [place], [address], 06/27/2025 04:29:05 06/26/2006 0706/26/2025 CBC W/DIF F MPV 12.2 fL 8.8-12 .1 high Not Available [facility] (Lab) [address], [place], [address], 06/27/2025 04:29:05 06/26/20 25 06/26/2025 CBC W/DIF F NRBC's 0.0 % 0.0 Not Available [facility] (Lab) [address], [place], [address], 06/27/2025 04:29:05 06/26/20 25 06/26/2025 CBC W/DIF F absolute NRBCs 0.0 10'3/ uL no refere nce range establ ished Not Available [facility] (Lab) [address], [place], [address], 06/27/2025 04:29:05 06/26/20 25 06/26/2025 CBC W/DIF F neutrophils 73.2 % 34.0-7 3.0 high Not Available [facility] (Lab) [address], [place], [address], 06/27/2025 04:29:05 06/26/20 25 06/26/2025 CBC W/DIF F lymphocytes 18.3 % 15.0-5 0.0 Not Available [facility] (Lab) [address], [place], [address], 06/27/2025 04:29:05 06/26/20 25 06/26/2025 CBC W/DIF F monocytes 7.5 % 1.0-15 .0 Not Available [facility] (Lab) [address], [place], [address], 06/27/2025 04:29:05 06/26/20 25 06/26/2025 CBC W/DIF F eosinophils 0.4 % 0.0-8. 0 Not Available [facility] (Lab) [address] [place], [address], 06/27/2025 04:29:05 06/26/20 25 06/26/2025 CBC W/DIF F basophils 0.2 % 0.0-2. 0 Not Available [facility] (Lab) [address], [place], [address], 06/27/2025 04:29:05 06/26/20 25 06/26/2025 CBC W/DIF [...] separ ately if prese nt. Not Available [facility] (Lab) [address], [place], [address], 06/27/2025 04:29:05 06/26/20 25 06/26/2025 CBC W/DIF F absolute neutrophils 9.8 10'3/ uL 1.5-8. 0 high Not Available [facility] (Lab) [address], [place], [address], 06/27/2025 04:29:05 06/26/20 25 06/26/2025 CBC W/DIF F absolute lymphocytes 2.5 10'3/ uL 1.0-4. 0 Not Available [facility] (Lab) [address], [place], [address], 06/27/2025 04:29:05 06/26/20 25 06/26/2025 CBC W/DIF F absolute monocytes 1.0 10'3/ uL 0.2-1. 0 Not Available [facility] (Lab) [address], [place], [address], 06/27/2025 04:29:05 06/26/20 25 06/26/2025 CBC W/DIF F absolute eosinophils 0.1 10'3/ uL 0.0-0. 6 Not Available [facility] (Lab) [address], [place], [address], 06/27/2025 04:29:05 06/26/20 25 06/26/2025 CBC W/DIF F absolute basophils 0.0 10'3/ uL 0.0-0. 3 Not Available [facility] (Lab) [address], [place], [address], 06/27/2025 04:29:05 06/26/20 25 06/26/2025 CBC W/DIF F absolute immature granulocytes 0.1 10'3/ uL 0.00-0 .10 Refer ence range s for nonbi nary/ inter sex or unspe cifie d gende r patie nts have not been estab lishe d. [facility]as [facility] for range s estab lishe d for cisge nder patie nts and evalu ate in the clini patrice kristal xt of the indiv idual patie nt: https :[email or web address] hyman book. nm.or g/gen derx Not Available [facility] (Lab) [address], [place], [address], 06/27/2025 04:29:05 06/26/2006/26/2025 URIC ACID uric acid 4.8 mg/dL 2.3-6. 6 Not Available [facility] (Lab) [address] [place], [address], 06/27/2025 04:29:06 06/26/20 25 06/26/2025 CMP(C OMPRE HENSI VE METAB OLIC PANEL ) sodium 138 mmol/ L 133-14 6 Not Available [facility] (Lab) [address] [place], [address], 06/27/2025 04:29:06 06/26/20 25 06/26/2025 CMP(C OMPRE HENSI VE METAB OLIC PANEL ) potassium 4.0 mmol/ L 3.5-5. 1 Not Available [facility] (Lab) [address] [place], [address], 06/27/2025 04:29:06 06/26/20 25 06/26/2025 CMP(C OMPRE HENSI VE METAB OLIC PANEL ) chloride 103 mmol/ L 98-107 Not Available [facility] (Lab) [address], [place], [address], 06/27/2025 04:29:06 06/26/20 25 06/26/2025 CMP(C OMPRE HENSI VE METAB OLIC PANEL ) carbon dioxide 26 mmol/ L 21-31 Not Available [facility] (Lab) [address], [place], [address], 06/27/2025 04:29:06 06/26/2006/26/2025 CMP(C OMPRE HENSI VE METAB OLIC PANEL ) anion gap 9 mmol/ L 4-13 Not Available [facility] (Lab) [address], [place], [address], 06/27/2025 04:29:06 06/26/2006/26/2025 CMP(C OMPRE HENSI VE METAB OLIC PANEL ) blood urea nitrogen 7 mg/dL 7-[address] [facility] (Lab) [address], [place], [address], 06/27/2025 04:29:06 06/26/20 25 06/26/2025 CMP(C OMPRE HENSI VE METAB OLIC PANEL ) creatinine 0.66 mg/dL 0.60-1 .30 Not Available [facility] (Lab) [address], [place], [address], 06/27/2025 04:29:06 06/26/2006/26/2025 CMP(C OMPRE HENSI VE METAB OLIC PANEL ) egfrcr (CKD-epi 2020) >90 mL/mi n/1.7 3_m2 >=60 Not Available [facility] (Lab) [address], [place], [address], 06/27/2025 04:29:06 06/26/20 25 06/26/2025 CMP(C OMPRE HENSI VE METAB OLIC PANEL ) calcium 9.0 mg/dL 8.3-10 .5 Not Available [facility] (Lab) [address], [place], [address], 06/27/2025 04:29:06 06/26/20 25 06/26/2025 CMP(C OMPRE HENSI VE METAB OLIC PANEL ) glucose 74 mg/dL 70-100 Not Available [facility] (Lab) [address], [place], [address], 06/27/2025 04:29:06 06/26/2006/26/2025 CMP(C OMPRE HENSI VE METAB OLIC PANEL ) protein, total 6.1 g/dL 6.4-8. 3 low Not Available [facility] (Lab) [address], [place], [address], 06/27/2025 04:29:06 06/26/20 25 06/26/2025 CMP(C OMPRE HENSI VE METAB OLIC PANEL ) albumin 3.3 g/dL 3.5-5. 0 low Not Available [facility] (Lab) [address] [facility] [address], [place], [address], 06/27/2025 04:29:06 06/26/20 25 06/26/2025 CMP(C OMPRE HENSI VE METAB OLIC PANEL ) ALT 36 units /L 9-43 Not Available [facility] (Lab) [address] [facility], [place], [address], 06/27/2025 04:29:06 06/26/2006/26/2025 CMP(C OMPRE HENSI VE METAB OLIC PANEL ) alkaline phosphatase 131 units /L 34-104 high Not Available [facility] (Lab) [address], [place], [address], 06/27/2025 04:29:06 06/26/20 25 06/26/2025 CMP(C OMPRE HENSI VE METAB OLIC PANEL ) AST 20 units /L 13-39 Not Available [facility] (Lab) [address], [place], [address], 06/27/2025 04:29:06 06/26/20 25 06/26/2025 CMP(C OMPRE HENSI VE METAB OLIC PANEL ) bilirubin, total 0.3 mg/dL 0.2-1. 2 Not Available [facility] (Lab) [address], [place], [address], 06/27/2025 04:29:06 07/10/20 25 07/10/2025 CULTU RE: [...] t Abnor mal: No Resul ting Lab: [facility] [address] [facility] [address] Tel: CULTU RE ----- ----- ----- --- No Group B strep isola ruy at 2 days (bailee ctive broth enhan cemen t) Not Available [facility] (Lab) [address], [place], [address], 07/13/2025 15:08:33 02/07/20 25 02/06/2025 US, opal lemos, nucha l trans lucen cy No observ ation record ed. [email or web address] [address], [place], [address], 02/06/2025 17:26:10 02/07/20 25 02/06/2025 US, opal lemos, follo w-up No observ ation record ed. [email or web address] Vivi [address], [place], [address], 02/07/2025 11:49:39 03/27/20 25 03/27/2025 US, obste tric, 2nd or 3rd trime ster No observ ation record ed. [email or web address] [address], [place], [address], 03/27/2025 16:50:03 03/27/20 25 03/27/2025 US, obste tric, 2nd or 3rd trime ster No observ ation record ed. [email or web address] Vivi [address], [place], [address], 04/01/2025 20:55:55 04/24/20 25 04/24/2025 US, obste tric, follo w-up No observ ation record ed. [email or web address] [address], [place], [address], 04/24/2025 18:50:20 04/24/20 25 04/24/2025 US, obste tric, follo w-up No observ ation record ed. [email or web address] Vivi [address], [place], [address], 05/02/2025 18:12:06 05/05/20 25 05/05/2025 US, obste tric, limit ed No observ ation record ed. [address] [facility], [place], [address], 05/08/2025 11:23:32 05/05/20 25 05/05/2025 US, obste tric, limit ed No observ ation record ed. [address], [place], [address], 05/08/2025 11:23:15 05/06/20 25 05/05/2025 non-s tress test No observ ation record ed. [facility] [address], [place], [address], 05/14/2025 16:17:57 06/12/2006/12/2025 US, obste tric, follo w-up No observ ation record ed. [email or web address] [address], [place], [address], 06/12/2025 13:37:49 06/12/2006/12/2025 US, obste tric, follo w-up No observ ation record ed. [email or web address] Vivi [address], [place], [address], 06/14/2025 12:40:46 06/26/2006/26/2025 non-s tress test No observ ation record ed. [email or web address] [address], [place], [address], 06/26/2025 17:40:02 06/26/20 non-s tress test No observ ation record ed. [email or web address] [address], [place], [address], 06/26/2025 17:40:25 07/03/2007/03/2025 US, obste tric, bioph ysica l profi le + non-s tress test No observ ation record ed. [email or web address] [address], [place], [address], 07/03/2025 10:21:51 07/03/2007/03/2025 US, obste tric, bioph ysica l profi le + non-s tress test No observ ation record ed. [email or web address] Vivi [address], [place], [address], 07/03/2025 10:36:03 07/03/2007/03/2025 non-s tress test No observ ation record ed. [address], [place], [address], 07/03/2025 17:34:00 07/03/20 non-s tress test No observ ation record ed. [address], [place], [address], 07/03/2025 16:02:31 07/10/2007/10/2025 US, obste tric, follo w-up No observ ation record ed. [email or web address] Lemose [address], [place], [address], 07/10/2025 11:53:53 07/10/2007/10/2025 US, obste tric, follo w-up No observ ation record ed. [facility] [address], [place], [address], 07/10/2025 13:24:28 07/10/2007/10/2025 US, obste tric, bioph ysica l profi le + non-s tress test No observ ation record ed. [facility] [address], [place], [address], 07/10/2025 13:24:41 07/10/2007/10/2025 non-s tress test No observ ation record ed. [address], [place], [address], 07/10/2025 16:54:42 07/10/20 non-s tress test No observ ation record ed. [address], [place], [address], 07/10/2025 16:55:51 07/17/2007/17/2025 non-s tress test No observ ation record ed. [email or web address] [address], [place], [address], 07/19/2025 11:50:49 07/17/20 non-s tress test No observ ation record ed. [address], [place], [address], 07/17/2025 10:56:47 07/17/2007/17/2025 US, obste tric, bioph ysica l profi le + non-s tress test No observ ation record ed. [email or web address] [address], [place], [address], 07/17/2025 13:24:17 07/17/2007/17/2025 US, obste tric, bioph ysica l profi le + non-s tress test No observ ation record ed. [email or web address] Vivi [address], [place], [address], 07/17/2025 11:37:56 07/24/2007/24/2025 US, obste tric, bioph ysica l profi le + non-s tress test No observ ation record ed. [email or web address] Vivi [address], [place], [address], 07/24/2025 11:16:54 07/24/2007/24/2025 US, obste tric, bioph ysica l profi le + non-s tress test No observ ation record ed. bertha [address], [place], [address], 07/24/2025 18:17:48 07/24/2007/24/2025 non-s tress test No observ ation record ed. bertha [address], [place], [address], 07/24/2025 18:19:09 07/24/20 25 non-s tress test No observ ation record ed. [email or web address] [address] [address], [place], [address], 07/24/2025 16:00:08 Result Notes None recorded. Problems Name Problem SNOMED Code Status Onset Date Resolution Date Notes Provider Name and Address Organization Details Recorded Time Pregnanc y test negative 317732916 Completed 201409/02/2020 Pregnanc y examinat ion or test, negative result;R ecorded Elsewher e: No Locat ion: [facility] S ource: EHR Radiator Core Tester elena: N Practi ce ID: 0001 Grabiel lable Time: 03:15:00 PM Beverley lopez, [facility] 0 17:56:19 Obesity [id number] Completed 201409/03/2020 Obesity, unspecif ied;Prac bronson ID: 0001 Beverley lopez, [facility] 0 14:20:47 Speciali zed medical examinat ion Completed 201409/02/2020 Routine gynecolo gical examinat ion;Prac bronson ID: 0001 Beverley lopez, [facility] 0 17:57:40 Screenin g for malignan t neoplasm of cervix Completed 201409/02/2020 Pap Smear;Pr actice ID: 0001 Beverley lopez, [facility] 0 17:56:38 Educatio n Completed 201409/02/2020 Family planning ;Recorde d Elsewher e: No Locat ion: [facility] S ource: EHR Radiator Core Tester elena: N Practi ce ID: 0001 Grabiel lable Time: 04:00:00 PM Beverley lopez, [facility] 0 17:55:08 Female inferbonifacio covington [id number] Completed 201410/17/2020 Ebony covington, female, of unspecif ied origin;Tomeka sabatice ID: 0001 Beverley lopez, [facility] 1 10:55:45 Body mass index 30+ - obesity [id number] Completed 201510/17/2020 Body mass index (BMI) 39.0-39. 9, adult;Re corded Elsewher e: No Locat ion: [facility] S ource: EHR Radiator Core Tester elena: N Practi ce ID: 0001 Grabiel lable Time: 11:00:00 AM Beverley lopez [facility] 1 10:55:40 Syncope and collapse [id number] Completed 201510/17/2020 Syncope and collapse ;Recorde d Elsewher e: No Locat ion: [facility] S ource: EHR Radiator Core Tester elena: N Practi ce ID: 0001 Grabiel lable Time: 10:30:00 AM Beverley lopez [facility] 1 10:56:12 Gestatio n less than 9 weeks [id number] Completed 201509/02/2020 Less than 8 weeks gestatio n of pregnanc y;Practi ce ID: 0001 Beverley lopez [facility] 0 17:55:27 Pregnanc y, childbir th and puerperi um finding Completed 201510/17/2020 Encntr for suprvsn of normal first preg, first trimeste r;Practi ce ID: 0001 Beverley lopez, [facility] 1 10:55:59 Gestatio n period, 12 weeks [id number] Completed 201509/02/2020 12 weeks gestatio n of pregnanc y;Practi ce ID: 0001 Beverley lopez [facility] 0 17:55:30 Pregnanc y, childbir th and puerperi um finding Completed 201509/02/2020 Encntr for suprvsn of normal first preg, second trimeste r;Practi ce ID: 0001 Beverley lopez, [facility] 0 17:56:27 Gestatio n period, 32 weeks [id number] Completed 201509/02/2020 32 weeks gestatio n of pregnanc y;Practi ce ID: 0001 Beverley Sun jessica, [facility] 0 17:55:35 Pregnanc y, childbir th and puerperi um finding Completed 201509/03/2020 Encounte r for supervis ion of normal first pregnanc y, third trimeste r;Record ed Elsewher e: No Locat ion: [facility] S ource: EHR Radiator Core Tester elena: N Practi ce ID: 0001 Grabiel lable Time: 05:30:00 PM Beverley Dos Santostz jessica, [facility] 0 14:20:36 Gestatio n period, 33 weeks [id number] Completed 201509/02/2020 33 weeks gestatio n of pregnanc y;Record ed Elsewher e: No Locat ion: [facility] S ource: EHR Radiator Core Tester elena: N Practi ce ID: 0001 Grabiel lable Time: 09:00:00 AM Beverley lopez, [facility] 0 17:55:39 Normal pregnanc y in multig[place] [id number] Completed 201509/02/2020 Encounte r for suprvsn of normal pregnanc y, third trimeste r;Practi ce ID: 0001 Beverley Corinne jessica, [facility] 0 17:56:11 Gestatio n period, 34 weeks [id number] Completed 201509/02/2020 34 weeks gestatio n of pregnanc y;Practi ce ID: 0001 Beverley lopez, [facility] 0 17:55:42 Pregnanc y-induce d hyperten tonya Completed 201503/27/2021 Gestatio nal htn w/o signific ant proteinu che, third trimeste r;Record ed Elsewher e: No Locat ion: [facility] S ource: EHR Radiator Core Tester elena: N Practi ce ID: 0001 Grabiel lable Time: 03:00:00 PM Beverley lopez, [facility] 1 16:36:34 Gestatio n period, 36 weeks [id number] Completed 201509/02/2020 36 weeks gestatio n of pregnanc y;Practi ce ID: 0001 Beverley lopez, [facility] 0 17:55:48 Single live from singleto n pregnanc y [id number] Completed 201509/03/2020 Single live ;Pr actice ID: 0001 Beverley lopez, [facility] 0 14:20:54 Gestatio n period, 37 weeks [id number] Completed 201509/02/2020 37 weeks gestatio n of pregnanc y;Practi ce ID: 0001 Beverley lopez, [facility] 0 17:55:50 Pregnanc y-induce d hyperten tonya Completed 201509/02/2020 Gestatio nal htn w/o signific ant proteinu che, unsp trimeste r;Practi ce ID: 0001 Beverley lopez, [facility] 0 17:57:29 Hyperten sive disorder [id number] Completed 201503/27/2021 Benign hyperten tonya;Rec orded Elsewher e: No Locat ion: [facility] S ource: EHR Radiator Core Tester elena: N Practi ce ID: 0001 Grabiel lable Time: 10:30:00 AM Beverley lopez [facility] 5 19:18:30 Non-prot einuric hyperten tonya of pregnanc y [id number] Completed 201510/17/2020 Gestatnl htn without signific ant protein, comp the puerp;Pr actice ID: 0001 Beverley Sun jessica, [facility] 1 10:56:02 Lochia finding Completed 201510/17/2020 Encounte r for routine postpart um follow-u p;Practi ce ID: 0001 Beverley Sun jessica, [facility] 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 0 17:56:45 Pregnanc y detectio n examinat ion Completed 201809/02/2020 Encounte r for pregnanc y test, result positive ;Practic e ID: 0001 Beverley Sun jessica, [facility] 0 17:56:17 Uterine size for dates discrepa ncy Completed 201810/17/2020 Uterine size-malia e discrepa ncy, first trimeste r;Mathieuti ce ID: 0001 Beverley Sun [facility], [facility] 1 10:56:17 Secondar y amenorrh ea [id number] Completed 201810/17/2020 Secondar y amenorrh ea;Recor ded Elsewher e: No Locat ion: [facility] S ource: EHR Radiator Core Tester elena: N Practi ce ID: 0001 Grabiel lable Time: 10:30:00 AM Beverley Corinne jessica, [facility] 1 10:56:05 Infectio n screenin g Completed 201809/02/2020 Encounte r for screenin g for oth infec/pa rastc diseases ;Recorde d Elsewher e: No Locat ion: [facility] Practi [facility] ID: 0001 Grabiel lable Time: 10:30:00 AM Beverley Corinne jessica, [facility] 0 17:56:03 Syphilis test finding [id number] Completed 201809/03/2020 Encntr screen for infectio ns w sexl mode of transmis s;Record ed Elsewher e: No [facility]at [facility] Practi ce ID: 0001 Grabiel lable Time: 10:30:00 AM Beverley Sun jessica, [facility] 0 14:20:58 Finding of viabilit y of pregnanc y [id number] Completed 201809/02/2020 Pregnanc y w inconclu sive viabilit y, unsp;Pra ctice ID: 0001 Beverley Sun [facility], [facility] 0 17:55:21 Finding of contents of cervix [id number] Completed 201809/02/2020 Weeks of gestatio n of pregnanc y not specifie d;Practi ce ID: 0001 Beverley Sun [facility], [facility] 0 17:55:14 Threaten ed miscarri age [id number] Completed 201810/17/2020 Threaten ed ;Recorde d Elsewher e: No [facility]at ion[facility] Practi ce ID: 0001 Grabiel lable Time: 12:30:00 PM Beverley Sun null, [facility] 1 10:56:15 Gestatio n period, 8 weeks [id number] Completed 201809/02/2020 8 weeks gestatio n of pregnanc y;Practi ce ID: 0001 Beverley lopez, [facility] 0 17:55:55 Rubella screenin g status [id number] Completed 201809/02/2020 Encounte r for antenata l screenin g, unspecif ied;Benitez rded Elsewher e: No [facility] [employer] elena: N Practi ce ID: 0001 Grabiel lable Time: 04:30:00 PM Beverley lopez, [facility] 0 17:56:34 Antenata l screenin g Completed 201809/02/2020 Encounte r for antenata l screenin g for nuchal transluc ency;Pra ctice ID: 0001 Beverley lopez, [facility] [facility] 0 17:57:11 Antenata l screenin g for malforma tion Completed 201809/02/2020 Encounte r for antenata l screenin g for malforma tions;Re corded Elsewher e: No [facility] S ource: EHR Radiator Core Tester elena: N Practi ce ID: 0001 Grabiel lable Time: 08:15:00 AM Beverley lopez, [facility] 0 17:57:13 Gestatio n period, 29 weeks 55923839 Completed 201809/02/2020 29 weeks gestatio n of pregnanc y;Record ed Elsewher e: No Locat ion: [facility] S ource: EHR Radiator Core Tester elena: N Practi ce ID: 0001 Grabiel lable Time: 03:45:00 PM Beverley lopez [facility] 0 17:55:32 Clinical finding Completed 201810/17/2020 Tachycar rishi, unspecif ied;Benitez rded Elsewher e: No Locat ion: Liviaella helena [facility] S ource: EHR Radiator Core Tester elena: N Practi ce ID: 0001 Grabiel lable Time: 11:15:00 AM Beverley lopez, [facility] 1 10:55:44 Clinical finding Completed 201809/02/2020 Obesity, unspecif ied;Benitez rded Elsewher e: No Locat ion: Liviaella helena [facility] S ource: EHR Radiator Core Tester elena: N Practi ce ID: 0001 Grabiel lable Time: 03:00:00 PM Beverley lopez, [facility] 0 17:55:24 Finding of body mass index 743507128 Completed 201809/02/2020 Body mass index (BMI) 40.0-44. 9, adult;Re corded Elsewher e: No Locat ion: Liviabhavesh helena [facility] S ource: EHR Radiator Core Tester elena: N Practi ce ID: 0001 Grabiel lable Time: 02:00:00 PM Beverley lopez, [facility] 0 17:56:59 Gestatio n period, 35 weeks 24137449 Completed 201809/02/2020 35 weeks gestatio n of pregnanc y;Record ed Elsewher e: No Locat ion: [facility]io alberto malik [facility] S ource: EHR Radiator Core Tester elena: N Practi ce ID: 0001 Grabiel lable Time: 02:00:00 PM Beverley lopez, [facility] 0 17:55:44 Severe obesity complica ting pregnanc y 0600656166 8803175 Completed 201810/17/2020 Obesity complica ting pregnanc y, third trimeste r;Record ed Elsewher e: No Locat ion: Liviaella helena [facility] S ource: EHR Radiator Core Tester elena: N Practi ce ID: 0001 Grabiel lable Time: 03:00:00 PM Beverley lopez, [facility] 1 10:56:10 Gestatio n period, 38 weeks 44671492 Completed 201809/02/2020 38 weeks gestatio n of pregnanc y;Record ed Elsewher e: No Locat ion: Livia[facility] S ource: EHR Radiator Core Tester elena: N Practi ce ID: 0001 Grabiel lable Time: 11:00:00 AM Beverley lopez, [facility] 0 17:55:53 Hyperten tonya in the obstetri c context Completed 201810/17/2020 Pre-exis ting essentia l htn comp pregnanc y, third trimeste r;Practi ce ID: 0001 Beverley lopez, [facility] 1 10:55:52 Attentio n deficit hyperact ivity disorder 512881875 Active 2024 stopped taking medicati on when found out Beverley lopez [facility] 5 19:38:30 Mixed anxiety and depressi ve disorder 307763782 Active 2024 Beverley lopez, [facility] 5 19:37:00 Hyperten sive disorder 28897912 Active 2024 Medina Whitaker CNM [address], [place], [address], [facility] 5 17:26:39 Headache 72901317 Active 2024 Beverley lopez, [facility] 5 19:37:14 Pregnanc y 86695219 Active 2024 Beverley lopez [facility] 19:36:35 Mixed anxiety and depressi ve disorder 143375276 Active 2024 Beverley lopez, [facility] 19:37:00 Headache 34245156 Active 2024 Beverley lopez [facility] 19:37:14 Past pregnanc y history of gestatio nal hyperten tonya 633889364 Active 2024 2016 pregnanc y start bASA x 2 daily Medina Whitaker CNM [address], [place], [address], [facility] 17:26:14 Attentio n deficit hyperact ivity disorder 710279815 Active 2024 stopped taking medicati on when found out Beverley Sun [facility] 5 19:38:30 Obesity 460066917 Active 2024 antenata l testing @ 34ks Sonya Lester [facility] 5 20:55:07 Hyperten tonya AND/OR vomiting complica ting pregnanc y childbir th AND/OR puerperi 537899271 Active 2024 Medina Whitaker CNM [address], [place], [address], [facility] 5 15:51:32 Notes:Encounter for antenata l screening of mother Recorded Elsewhere: No Location: [facility] Source: EHR Chronic: N Practice ID: [id number] Billable Time: 10:30:00 AM Encounter for screening of mother Practice ID: [id number] Encounter for screening of mother Recorded Elsewhere: No Location: [facility] Source: EHR Chronic: N Practice ID: [id number] Billable Time: 10:30:00 AM Encounter for screening of mother Practice ID: [id number] Problem Notes None recorded. Procedures Surgical History Date Name Laterality Status Provider Name and Address Organization Details Recorded Time Date of Last Pap Smear completed Beverley Sun [facility] 02/06/2025 08:37:03 1 extraction of wisdom tooth completed Beverley Sun [facility] 02/06/2025 19:33:27 Imaging Results None [...] Prescrib ed Elsewher e: No Locat ion: [facility] odify By: [email or web address] Bosch ter DateTime : [...] Prescrib ed Elsewher e: No Locat ion: [facility] odify By: [email or web address] Bosch ter DateTime : [...] Prescrib camilo Fritz e: No Locat ion: [facility] odify By: [email or web address] z Encoun ter [...] times every day 07/23 completed Prescrib ed Blayneher e: No Locat ion: Sally malik [facility] [place] odify By: [email or web address] Encounte r DateTime [...] and Address Organization Details Last Updated DateTime 07/24/2025 167.64 cm 50.4 kg/m2 362629.82 g 131/84 mm[Hg] Barbie Coronado [facility] 07/24/2025 10:38:14 Date Recorded Body height Body mass index (BMI) Body weight Systolic And Diastolic Provider Name and Address Organization Details Last Updated DateTime 07/24/2025 167.64 cm 50.4 kg/m2 970968.82 g 131/84 mm[Hg] Zita Westfall [facility] 07/24/2025 15:57:46 Social History Question Answer Notes LastModified by Organizat ion Details LastModified Time Tobacco Smoking Status Never Smoker Beverley Sun [facility] 03/21/2020 13:16:23 Do You Have An Advance Directive? No Information n ot available 01/07/2025 If You Are , What Was Your Level Of Alcohol Consumption Prior To ? Occasional [email or web address] Information not available 10/17/2020 Are You Blind Or Do You Have Difficulty Seeing? No [email or web address] Information n ot available 03/27/2021 What Is Your Level Of Caffeine Consumption? Occasional [email or web address] Information not available 10/17/2020 In The 14 Days Before Symptom Onset, Have You Had Close Contact With A Laboratory-confirm ed COVID-19 While That Case Was Ill? No [email or web address] Information n ot available 03/27/2021 In The 14 Days Before Symptom Onset, Have You Had Close Contact With A Person Who Is Under Investigation For COVID-19 While That Person Was Ill? No [email or web address] Information not available 03/27/2021 Have You Been To An Area Known To Be High Risk For COVID-19? No [email or web address] Information not available 03/27/2021 Are You Deaf Or Do You Have Serious Difficulty Hearing? No [email or web address] Information not available 03/27/2021 What Type Of Diet Are You Following? REGULAR [email or web address] Information n ot available 03/27/2021 What Is The Highest Grade Or Level Of School You Have Completed Or The Highest Degree You Have Received? [id number] Information not available 01/07/2025 What Was The Date Of Your Most Recent Tobacco Screening? 02/06/2025 [email or web address] Information not available 02/06/2025 Have You Ever Been Counseled For Unhealthy Alcohol Use? No [email or web address] Information not available 10/17/2020 Do You Use Protection During Sex? No Information not available 01/07/2025 Do You Use Your Seat Belt Or Car Seat Routinely? Yes [email or web address] Information not available 03/27/2021 Do You Have Smoke And Carbon Monoxide Detectors In Your Home? Yes Information not available 03/27/2021 How Much Tobacco Do You Smoke? No [email or web address] Information not available 03/21/2020 Do You Use Sunscreen Routinely? Yes [email or web address] Information not available 03/27/2021 Has Tobacco Cessation Counseling Been Provided? No [email or web address] Information not available 10/17/2020 Have You Used IV Drugs? No Information not available 01/07/2025 Do You Have Difficulty Walking Or Climbing Stairs? No Information not available 02/06/2025 Sex: Unknown Functional Status Question Answer Note LastModified by Organizat ion Details LastModified Time Do you use any illicit or recreational drugs? No [email or web address] Information not available 10/17/2020 Do you or have you ever used any other forms of tobacco or nicotine? No Information not available 10/17/2020 What is your level of alcohol consumption? None [email or web address] Information not available 02/06/2025 Do you or have you ever used smokeless tobacco? Never used smokeless tobacco [email or web address] Information not available 03/21/2020 Are you able to walk independently without assistance or assistive devices? YESWOREST [email or web address] Information not available 03/27/2021 Are you able to care for yourself independently? Yes [email or web address] Information not available 02/06/2025 Do you have difficulty dressing, bathing, grooming, or toileting? No [email or web address] Information not available 02/06/2025 Do you or have you ever used e-cigarettes or vape? Never used electronic cigarettes [email or web address] Information not available 03/21/2020 What is your exercise level? Occasional [email or web address] Information not available 03/21/2020 Mental Status Question Answer Note LastModified by Organization D etails LastModified Time Do you feel stressed (tense, restless, nervous, or anxious, or unable to sleep at night)? [id number] [email or web address] Information not available 03/27/2021 Family History Relationship Description Onset Age of this Age Resolved Age Notes LastModified by Organization Details LastModified Time Mother Disorder of thyroid gland [email or web address] Not available 03/21 13:15:49 Father Diabetes mellitus [email or web address] Not available 03/21 13:16:06 Maternal Grandfather Diabetes mellitus [email or web address] Not available 03/21 13:16:06 Maternal Grandmother Malignant neoplasm of lung [email or web address] Not available 12/13 11:16:48 Medical History Condition Response Allergies (Food, seasonal, environmental ) Y Other N Breast Cancer N Drug/Latex Allergies/Reactions N Blood Transfusion N Dermatologic Disorders N Lung Disease N Defects or Inherited Disease N Breast Problem N Gestational Diabetes N Hematologic disorders N Anesthesia Complications N History of STI Y Deep Vein Thrombosis N Polycystic ovary syndrome N Anxiety Disorder Y Autoimmune disease N Arthritis N Infertility N Polyps N Acid Reflux (GERD) N History of abnormal pap N Cancer N Stroke N Varicosities N Neurologic/Epilepsy Y Endometriosis N High Cholesterol N Headaches Y Fibromyalgia N Kidney Disease N Heart Problems N Kidney or Bladder Problems N Thyroid Problems N GI Problems N Eating Disorder [...] ICD10 Code Diagnosis IMO Codes Diagnosis Note [id number] Medina Whitaker CNM [facility] [address] [address] 06/26/2025 14:50:38 06/26/2025 15:53:19 Gestation period, 33 weeks 38178387 Z3A.33 6751834 [id number] Medina Whitaker CNM [facility] [address] [address] 06/26/2025 15:32:15 06/26/2025 17:47:00 Hypertension AND/OR vomiting complicating childbirth AND/OR puerperium 350454677 O13.3 0989235 [id number] Lobito Salinas MD [facility] [address],[place] [address] 07/03/2025 09:24:44 07/03/2025 10:27:55 -induced hypertension 36194793 O13.3 Z3A.34 724033 [id number] Medina Whitaker CNM [facility] [address] [place] [address] 07/03/2025 09:24:58 07/03/2025 16:17:39 Maternal obesity complicating , childbirth and the puerperium, antepartum 3551666405 07 O99.210 4369452601 rf phentermin e, ok for one more refill then must take break [id number] Medina Whitaker CNM [facility] [address] [place] [address] 07/03/2025 09:25:15 07/03/2025 11:45:20 Gestation period, 34 weeks 65462211 Z3A.34 6679806 [id number] Lobito Salinas MD [facility] [address] [place] [address] 07/10/2025 09:26:17 07/10/2025 10:22:03 Chronic hypertension complicating AND/OR reason for care during 34068198 O10.919 O36.60X0 O99.210 Z3A.35 70649105 [id number] Medina Whitaker CNM [facility] [address] [place] [address] 07/10/2025 09:27:40 07/10/2025 17:20:31 Maternal obesity complicating , childbirth and the puerperium, antepartum 2496811569 07 O99.210 5005846970 rf phentermin e, ok for one more refill then must take break [id number] Medina Whitaker CNM [facility] [address],[place] [address] 07/10/2025 09:27:58 07/10/2025 12:08:57 Gestation period, 35 weeks 48336281 Z3A.35 4755426 [id number] Lobito Salinas MD [facility] [address],[place] [address] 07/17/2025 09:20:51 07/17/2025 11:18:20 -induced hypertension 78019114 O13.3 O99.213 Z3A.36 895874 [id number] MIKE OROZCO MD [facility] [address],[place] [address] 07/17/2025 09:21:09 07/17/2025 11:18:15 Maternal obesity complicating , childbirth and the puerperium, antepartum 6579397794 07 O99.210 2808905240 [id number] Medina Whitaker [facility] [address],[place] [address] 07/17/2025 09:21:21 07/17/2025 11:41:53 Gestation period, 36 weeks 99431814 Z3A.36 7906975 [id number] Lobito Salinas MD [facility] [address],[place] [address] 07/24/2025 09:18:30 07/24/2025 12:01:03 Maternal hypertension 012422335 O16.3 O99.210 Z3A.37 8336333 [id number] Medina Whitaker [facility] [address],[place] [address] 07/24/2025 09:18:44 07/24/2025 16:13:38 Maternal obesity complicating , childbirth and the puerperium, antepartum 3033696233 07 O99.210 4546604974 [id number] Medina Whitaker [facility] [address],[place] [address] 07/24/2025 09:18:55 07/24/2025 13:26:59 Gestation period, 37 weeks 26874625 Z3A.37 9045707 Health Concerns Section Related Observation LastModified by Organization Detai ls LastModified Time None Recorded Concern Status LastModified by Organization Details LastModified Time None Recorded Payers Encounter Date Sequence Insurance Name Policy Number Policy Ventura Covered Member ID Ventura Member ID Guarantor Name 07/24/2025 1 [facility] [id number] Apolinar Rivers [id number] Whit Rivers Notes Date Note Type Note Provider Name and Address Organization Details Recorded Time 07/24/2025 text/html Generic HPI TemplateReported by Patient Medina Herber Whitaker CNM [address], [place], [address], [facility] 07/24/2025 13:05:42 OBGyn Episode Ob Episode Information Episode Created Date Number of Fetuses Patient Bloodtype Patient rh Status Prepregnancy Weight lbs Domestic Partner Domestic Partner Phone Father Name Match Up Person Status 02/07/20 25 1 O Positive 291 Apolinar Rivers OPEN Fetus Data First Name Last Name Admitted to NICU Weight (g) Sex Living Outcome Pediatric Complications Fetus ID Race Codes Race Delivery Type [id number] Problems Problem Notes Problem Name Start Date End Date Resolution Snomed Code Not e Attention deficit hyperactivity disorder 02/06/2025 565135242 stopped taking medication when found out Past history of gestational hypertension 02/06/2025 508556265 2016 pregnancys tart bASA x 2 daily Obesity 02/07/2025 923087616 testing @ 34wks Headache 02/06/2025 23132299 Mixed anxiety and depressive disorder 02/06/2025 532803100 Hypertension AND/OR vomiting complicating childbirth AND/OR puerperium 06/26/2025 191534685 Alfa Calculation Initial Alfa Date Initial Exam [...] Weight in lbs Pre/Post Dialysis Refused Weight 289.510018085431 BP Diastolic BP Location Tested BP Systolic [...] Weight in lbs Pre/Post Dialysis Refused Weight 294.639057228877 BP Diastolic BP Location Tested BP Systolic [...] Type Weight in lbs Pre/Post Dialysis Refused 297.875435324968 BP Diastolic BP Location Tested BP Systolic [...] Type Weight in lbs Pre/Post Dialysis Refused 302.519108745681 BP Diastolic BP Location Tested BP Systolic [...] Weight in lbs Pre/Post Dialysis Refused Weight 305.322668915997 BP Diastolic BP Location Tested BP Systolic [...] Weight in lbs Pre/Post Dialysis Refused Weight 306.515036149167 BP Diastolic BP Location Tested BP Systolic [...] Weight in lbs Pre/Post Dialysis Refused Weight 305.378895079713 BP Diastolic BP Location Tested BP Systolic [...] Weight in lbs Pre/Post Dialysis Refused Weight 307.970542243375 BP Diastolic BP Location Tested BP Systolic [...] Type Weight in lbs Pre/Post Dialysis Refused 308.577525715027 BP Diastolic BP Location Tested BP Systolic BP Type 81 L arm 132 sitting Fetus Heart Rate Present Fetus Movement A Yes Comments Flowsheet Date 07/03/2025 Bunn Score Blood Edema Fundus Height Fundus Units Glucose Ketones Leukocytes Nitrite Labor Signs Protein Cervic Dilation Cervic Effacement Cervic Station Type Weight in lbs Pre/Post Dialysis Refused 308.367544600079 BP Diastolic BP Location Tested BP Systolic [...] Weight in lbs Pre/Post Dialysis Refused Weight 310.582763670028 BP Diastolic BP Location Tested BP Systolic BP Type 85 L arm 128 sitting Fetus Heart Rate Present Fetus Movement A Yes Comments Flowsheet Date 07/10/2025 Bunn Score Blood Edema Fundus Height Fundus Units Glucose Ketones Leukocytes Nitrite Labor Signs Protein Cervic Dilation Cervic Effacement Cervic Station Type Weight in lbs Pre/Post Dialysis Refused 310.286571710669 BP Diastolic BP Location Tested BP Systolic BP Type 85 L arm 128 sitting Fetus Heart Rate Present Fetus Movement A Yes Comments +FM, GHTN, efw 99% will disc uss c/s vs vag del next week, pt not currently wanting bpp 8/ f/u one week Flowsheet Date 07/17/2025 Bunn [...] Type Weight in lbs Pre/Post Dialysis Refused 311.522979718380 BP Diastolic BP Location Tested BP Systolic BP Type 78 L arm 130 sitting Fetus Heart Rate Present Fetus Movement A Yes Comments bpp 8 doing well, denies cardona visual changes, discussed [...] Weight in lbs Pre/Post Dialysis Refused Weight 312.758275561308 BP Diastolic BP Location Tested BP Systolic BP Type 84 L arm 131 sitting Fetus Heart Rate Present Fetus Movement A Yes Comments Flowsheet Date 07/24/2025 Bunn Score Blood Edema Fundus Height Fundus Units Glucose Ketones Leukocytes Nitrite Labor Signs Protein Cervic Dilation Cervic Effacement Cervic Station 1cm 50% -2 Type Weight in lbs Pre/Post Dialysis Refused Weight 312.188763167723 BP Diastolic BP Location Tested BP Systolic [...]
--- OUTSIDE RECORDS SUMMARY | 2025-07-26 05:56 | XMS_ITS | Continuity of Care Document ---
Author Organization [facility] Address [address] [place] [address] Care Team Providers Care It Systems Engineer Name Role Phone HA MORTON Primary [...] d. Imaging non-str ess test 2024 025 [email or web address] [address], [address], [address], [place], [address], 06/26/2025 17:47:00 Medication Orders None recorde d. Patient TargetsNo targets recorded. Patient InstructionsNo instructions recorded. Reason for Referral None Reported. Results Created Date Observation Date Name Description Value Unit Range Abnormal Flag Note LastModifiedBy Organization Detail LastModifiedTime 02/15/2002/14/2025 [UNIT Y] ANEUP LOIDY NIPT fraction 3.9% normal Not Available [facility] [address], [place], [address], 02/14/2025 01:55:32 02/15/20 25 02/14/2025 [UNIT Y] ANEUP LOIDY NIPT 22Q11.2 microdeletio n LOW RISK <1 in 10,000 normal Not Available [facility] [address], [place], [address], 02/14/2025 01:55:32 02/15/20 25 02/14/2025 [UNIT Y] ANEUP LOIDY NIPT sex chromosome aneuploidy NOT DETECT ED normal Not Available [facility] [address], [place], [address], 02/14/2025 01:55:32 02/15/20 25 02/14/2025 [UNIT Y] ANEUP LOIDY NIPT monosomy X LOW RISK <1 in 10,000 normal Not Available [facility] [address], [place], [address], 02/14/2025 01:55:32 02/15/20 25 02/14/2025 [UNIT Y] ANEUP LOIDY NIPT trisomy 13 LOW RISK <1 in 10,000 normal Not Available [facility] [address], [place], [address], 02/14/2025 01:55:32 02/15/20 25 02/14/2025 [UNIT Y] ANEUP LOIDY NIPT trisomy 18 LOW RISK <1 in 10,000 normal Not Available [facility] [address], [place], [address], 02/14/2025 01:55:32 02/15/20 25 02/14/2025 [UNIT Y] ANEUP LOIDY NIPT trisomy 21 LOW RISK <1 in 10,000 normal Not Available [facility] [address], [place], [address], 02/14/2025 01:55:32 02/15/20 25 02/14/2025 [UNIT Y] ANEUP LOIDY NIPT sex MALE normal Not Available [facility] [address], [place], [address], 02/14/2025 01:55:32 02/15/20 25 02/14/2025 [UNIT Y] ANEUP LOIDY NIPT gestation SINGLE TON normal Not Available [facility] [address], [place], [address], 02/14/2025 01:55:32 02/15/20 25 02/14/2025 [UNIT Y] ANEUP LOIDY NIPT for detailed report, see pdf See PDF normal Not Available [facility] [address], [place], [address], 02/14/2025 01:55:32 02/18/20 25 02/17/2025 [UNIT Y] OTTO Islas sickle cell disease/beta -thalassemia /hemoglobino pathies carrier screen NEGATI VE normal Not Available [facility] [address], [place], [address], 02/17/2025 10:24:39 02/18/20 25 02/17/2025 [UNIT Y] OTTO JORGE Islas alpha-thalas semia carrier screen NEGATI VE normal Not Available [facility] [address], [place], [address], 02/17/2025 10:24:39 02/18/20 25 02/17/2025 [UNIT Y] OTTO LANGFORD Jnael cystic fibrosis carrier screen NEGATI VE normal Not Available [facility] [address], [place], [address], 02/17/2025 10:24:39 02/18/20 25 02/17/2025 [UNIT Y] OTTO LANGFORD Janel spinal muscular atrophy carrier screen NEGATI VE 2 SMN1 copies , SNP not presen t normal Not Available [facility] [address], [place], [address], 02/17/2025 10:24:39 02/18/20 25 02/17/2025 [UNIT Y] OTTO KNIGHTHelena Islas for detailed report, see pdf See PDF normal Not Available [facility] [address], [place], [address], 02/17/2025 10:24:39 02/07/20 25 02/06/2025 CBC W/DIF F WBC 12.0 10'3/ uL 3.5-10 .5 high Not Available [facility] (Lab) [address], [place], [address], 02/07/2025 13:12:55 02/07/20 25 02/06/2025 CBC W/DIF F RBC 4.52 10'6/ uL (based on docume nted legal sex) 3.80-5 .20 Not Available [facility] (Lab) [address], [place], [address], 02/07/2025 13:12:55 02/07/20 25 02/06/2025 CBC W/DIF F HGB 12.4 g/dL (based on docume nted legal sex) 11.6-1 5.4 Not Available [facility] (Lab) [address] , [place], [address], 02/07/2025 13:12:55 02/07/20 25 02/06/2025 CBC W/DIF F HCT 38.9 % (based on docume nted legal sex) 34.0-4 5.0 Not Available [facility] (Lab) [address], [place], [address], 02/07/2025 13:12:55 02/07/20 25 02/06/2025 CBC W/DIF F MCV 86.1 fL 80.0-9 9.0 Not Available [facility] (Lab) [address], [place], [address], 02/07/2025 13:12:55 02/07/20 25 02/06/2025 CBC W/DIF F MCH 27.4 pg 27.0-3 4.0 Not Available [facility] (Lab) [address], [place], [address], 02/07/2025 13:12:55 02/07/20 25 02/06/2025 CBC W/DIF F MCHC 31.9 g/dL 32.0-3 5.5 low Not Available [facility] (Lab) [address], [place], [address], 02/07/2025 13:12:55 02/07/20 25 02/06/2025 CBC W/DIF F RDW 12.9 % 11.0-1 5.0 Not Available [facility] (Lab) [address], [place], [address], 02/07/2025 13:12:55 02/07/20 25 02/06/2025 CBC W/DIF F plt 281 10'3/ uL 150-40 0 Not Available [facility] (Lab) [address] [place], [address], 02/07/2025 13:12:55 02/07/20 25 02/06/2025 CBC W/DIF F MPV 11.0 fL 8.8-12 .1 Not Available [facility] (Lab) [address], [place], [address], 02/07/2025 13:12:55 02/07/20 25 02/06/2025 CBC W/DIF F NRBC's 0.0 % 0.0 Not Available [facility] (Lab) [address] [facility], [place], [address], 02/07/2025 13:12:55 02/07/20 25 02/06/2025 CBC W/DIF F absolute NRBCs 0.0 10'3/ uL no refere nce range establ ished Not Available [facility] (Lab) [address] [facility], [place], [address], 02/07/2025 13:12:55 02/07/20 25 02/06/2025 CBC W/DIF F neutrophils 72.5 % 34.0-7 3.0 Not Available [facility] (Lab) [address] [facility], [place], [address], 02/07/2025 13:12:55 02/07/20 25 02/06/2025 CBC W/DIF F lymphocytes 20.4 % 15.0-5 0.0 Not Available [facility] (Lab) [address] [facility], [place], [address], 02/07/2025 13:12:55 02/07/20 25 02/06/2025 CBC W/DIF F monocytes 5.9 % 1.0-15 .0 Not Available [facility] (Lab) [address] [facility], [place], [address], 02/07/2025 13:12:55 02/07/20 25 02/06/2025 CBC W/DIF F eosinophils 0.6 % 0.0-8. 0 Not Available [facility] (Lab) [address] [facility], [place], [address], 02/07/2025 13:12:55 02/07/20 25 02/06/2025 CBC W/DIF F basophils 0.3 % 0.0-2. 0 Not Available [facility] (Lab) [address] [facility], [place], [address], 02/07/2025 13:12:55 02/07/2002/06/2025 CBC W/DIF F immature granulocytes 0.3 % no define d refere nce range Immat ure Granu locyt es (IG) repre sents autom ated enume ratio n of Metam yeloc ytes, Myelo cytes and Promy elocy shlomo when IG is < 5%. Blast s are not inclu ded in IG and repor ruy separ ately if prese nt. Not Available [facility] (Lab) [address] [facility], [place], [address], 02/07/2025 13:12:55 02/07/20 25 02/06/2025 CBC W/DIF F absolute neutrophils 8.7 10'3/ uL 1.5-8. 0 high Not Available [facility] (Lab) [address] [facility], [place], [address], 02/07/2025 13:12:55 02/07/20 25 02/06/2025 CBC W/DIF F absolute lymphocytes 2.4 10'3/ uL 1.0-4. 0 Not Available [facility] (Lab) [address] [facility], [place], [address], 02/07/2025 13:12:55 02/07/20 25 02/06/2025 CBC W/DIF F absolute monocytes 0.7 10'3/ uL 0.2-1. 0 Not Available [facility] (Lab) [address] [facility], [place], [address], 02/07/2025 13:12:55 02/07/20 25 02/06/2025 CBC W/DIF F absolute eosinophils 0.1 10'3/ uL 0.0-0. 6 Not Available [facility] (Lab) [address] [facility], [place], [address], 02/07/2025 13:12:55 02/07/20 25 02/06/2025 CBC W/DIF F absolute basophils 0.0 10'3/ uL 0.0-0. 3 Not Available [facility] (Lab) [address], [place], [address], 02/07/2025 13:12:55 02/07/2002/06/2025 CBC W/DIF F absolute [...] hyman book. nm.or g/gen derx Not Available [facility] (Lab) [address], [place], [address], 02/07/2025 13:12:55 02/07/2002/06/2025 HEPAT ITIS B SURFA CE ANTIG EN hepatitis B surface antigen Non-re active non-re active This assay was perfo rmed using [employer] ratio n reage nts and test kits. Value s obtai dexter with other assay metho ds or kits canno t be used inter lopez eably . Not Available [facility] (Lab) [address], [place], [address], 02/07/2025 13:12:55 02/07/2002/06/2025 HIV 1/2 ANTIG EN/AN TIBOD Y, REFLE X CONFI RMATI ON HIV antigen/anti body Nonrea ctive nonrea ctive HIV-1 antig en and HIV-1 /HIV- 2 antib odies were not detec ruy. No labor atory evide nce of HIV infec tion. Not Available [facility] (Lab) [address] , [place], [address], 02/07/2025 13:12:56 02/07/2002/06/2025 HEPAT ITIS C ANTIB ANITA SCREE N, REFLE X TO CONFI RMATI ON hepatitis C antibody Non-re active non-re active Antib odies to HCV Not Detec ruy, does not exclu de the possi bilit y of expos ure to HCV. Not Available [facility] (Lab) [address], [place], [address], 02/07/2025 13:12:56 02/07/2002/06/2025 RUBEL LA IGG ANTIB ANITA, QUANT rubella antibodies, IgG Reacti ve reacti ve Not Available [facility] (Lab) [address] [facility], [place], [address], 02/07/2025 13:12:56 02/07/2002/06/2025 RUBEL LA IGG ANTIB ANITA, QUANT rubella antibodies, IgG quant 61.9 IU/mL >=10 Non-r eacti ve (Non- Immun e) <10 IU/mL React essie (Immu ne) > or = 10 IU/mL Not Available [facility] (Lab) [address] [facility], [place], [address], 02/07/2025 13:12:56 02/07/2002/06/2025 TYPE/ RH/SC REEN ABO/Rh type O POS Not Available [facility] (Lab) [address] [facility], [place], [address], 02/07/2025 13:12:57 02/07/2002/06/2025 TYPE/ RH/SC REEN antibody screen NEG Not Available [facility] (Lab) [address] [facility], [place], [address], 02/07/2025 13:12:57 02/07/20 25 02/06/2025 TYPE/ RH/SC REEN exp date 2024 23:59 Not Available [facility] (Lab) [address] [facility], [place], [address], 02/07/2025 13:12:57 02/07/20 25 02/06/2025 RPR SCREE N, REFLE X TITER /CONF IRMAT ION RPR qualitative Nonrea ctive nonrea ctive Not Available [facility] (Lab) [address] [facility], [place], [address], 02/07/2025 13:12:57 02/07/20 25 02/06/2025 HEMOG LOBIN [...] >8.0% Actio n sugge sted Not Available [facility] (Lab) [address] [facility], [place], [address], 02/07/2025 13:12:57 02/07/2002/06/2025 CULTU RE: URINE result report SEE RESULT S BELOW Test: Cultu re: Urine Speci men Sourc e: Urine - Clean Catch Speci men Type: Urine Speci men Date: 2024 1737 Resul t Date: 2024 0700 Resul t Statu s: Final resul t Abnor mal: No Resul ting Lab: [facility] [address] [facility] [address] Tel: CULTU RE ----- ----- ----- --- Cultu re resul t (>=3 organ isms prese nt) indic ates possi ble conta minat ion. Repea t cultu re if sympt oms indic ate. Not Available [facility] (Lab) [address] [facility], [place], [address], 02/08/2025 08:03:32 05/28/20 25 02/06/2025 drug scree n, urine Amphetamines : negati ve Not Available [facility] [address], [place], [address], 02/06/2025 18:30:19 02/07/20 25 02/06/2025 drug scree n, urine Cannabinoids : negati ve Not Available [facility] [address], [place], [address], 02/06/2025 18:30:19 02/07/20 25 02/06/2025 drug scree n, urine Cocaine: negati ve Not Available [facility] [address], [place], [address], 02/06/2025 18:30:19 02/07/20 25 02/06/2025 drug scree n, urine Opiates: negati ve Not Available [facility] [address], [place], [address], 02/06/2025 18:30:19 02/07/20 25 02/06/2025 drug scree n, urine Phenocyclidi ne: negati ve Not Available [facility] [address], [place], [address], 02/06/2025 18:30:19 02/07/20 25 02/06/2025 drug scree n, urine Barbiturates : negati ve Not Available [facility] [address], [place], [address], 02/06/2025 18:30:19 02/07/20 25 02/06/2025 drug scree n, urine Benzodiazepi brayan: negati ve Not Available [facility] [address], [place], [address], 02/06/2025 18:30:19 02/07/20 25 02/06/2025 drug scree n, urine Ethanol: negati ve Not Available [facility] [address], [place], [address], 02/06/2025 18:30:19 02/07/20 25 02/06/2025 drug scree n, urine Hallucinogen s: negati ve Not Available [facility] [address], [place], [address], 02/06/2025 18:30:19 02/07/20 25 02/06/2025 drug scree n, urine Inhalants: negati ve Not Available [facility] [address], [place], [address], 02/06/2025 18:30:19 02/07/20 25 02/06/2025 drug scree n, urine Anabolic Steroids: negati ve Not Available [facility] [address], [place], [address], 02/06/2025 18:30:19 02/07/20 25 02/06/2025 drug scree n, urine Other: negati ve Not Available [facility] [address], [place], [address], 02/06/2025 18:30:19 05/15/20 25 05/15/2025 HEMOG LOBIN (HGB) HGB 10.9 g/dL (based on docume nted legal sex) 11.6-1 5.4 low Not Available [facility] (Lab) [address], [place], [address], 05/16/2025 09:55:38 05/15/20 25 05/15/2025 HEMAT OCRIT (HCT) HCT 35.7 % (based on docume nted legal sex) 34.0-4 5.0 Not Available [facility] (Lab) [address], [place], [address], 05/16/2025 09:55:39 05/15/2005/15/2025 CBC W/DIF F WBC 14.6 10'3/ uL 3.5-10 .5 high Not Available [facility] (Lab) [address], [place], [address], 05/16/2025 09:55:39 05/15/2005/15/2025 CBC W/DIF F RBC 4.01 10'6/ uL (based on docume nted legal sex) 3.80-5 .20 Not Available [facility] (Lab) [address] [facility], [place], [address], 05/16/2025 09:55:39 05/15/2005/15/2025 CBC W/DIF F HGB 10.9 g/dL (based on docume nted legal sex) 11.6-1 5.4 low Not Available [facility] (Lab) [address] [facility], [place], [address], 05/16/2025 09:55:39 05/15/2005/15/2025 CBC W/DIF F HCT 35.7 % (based on docume nted legal sex) 34.0-4 5.0 Not Available [facility] (Lab) [address], [place], [address], 05/16/2025 09:55:39 05/15/2005/15/2025 CBC W/DIF F MCV 89.0 fL 80.0-9 9.0 Not Available [facility] (Lab) [address] [facility], [place], [address], 05/16/2025 09:55:39 05/15/2005/15/2025 CBC W/DIF F MCH 27.2 pg 27.0-3 4.0 Not Available [facility] (Lab) [address] [facility], [place], [address], 05/16/2025 09:55:39 05/15/2005/15/2025 CBC W/DIF F MCHC 30.5 g/dL 32.0-3 5.5 low Not Available [facility] (Lab) [address] [facility], [place], [address], 05/16/2025 09:55:39 05/15/2005/15/2025 CBC W/DIF F RDW 14.5 % 11.0-1 5.0 Not Available [facility] (Lab) [address] [facility], [place], [address], 05/16/2025 09:55:39 05/15/2005/15/2025 CBC W/DIF F plt 218 10'3/ uL 150-40 0 Not Available [facility] (Lab) [address] [facility], [place], [address], 05/16/2025 09:55:39 05/15/2005/15/2025 CBC W/DIF F MPV 11.1 fL 8.8-12 .1 Not Available [facility] (Lab) [address] [facility], [place], [address], 05/16/2025 09:55:39 05/15/2005/15/2025 CBC W/DIF F NRBC's 0.0 % 0.0 Not Available [facility] (Lab) [address] [facility], [place], [address], 05/16/2025 09:55:39 05/15/2005/15/2025 CBC W/DIF F absolute NRBCs 0.0 10'3/ uL no refere nce range establ ished Not Available [facility] (Lab) [address] [facility], [place], [address], 05/16/2025 09:55:39 05/15/2005/15/2025 CBC W/DIF F neutrophils 78.7 % 34.0-7 3.0 high Not Available [facility] (Lab) [address] [facility], [place], [address], 05/16/2025 09:55:39 05/15/20 05/15/2025 CBC W/DIF F lymphocytes 15.0 % 15.0-5 0.0 Not Available [facility] (Lab) [address] [facility], [place], [address], 05/16/2025 09:55:39 05/15/2005/15/2025 CBC W/DIF F monocytes 4.9 % 1.0-15 .0 Not Available [facility] (Lab) [address] [facility], [place], [address], 05/16/2025 09:55:39 05/15/2005/15/2025 CBC W/DIF F eosinophils 0.6 % 0.0-8. 0 Not Available [facility] (Lab) [address] [facility], [place], [address], 05/16/2025 09:55:39 05/15/2005/15/2025 CBC W/DIF F basophils 0.3 % 0.0-2. 0 Not Available [facility] (Lab) [address] [facility], [place], [address], 05/16/2025 09:55:39 05/15/2005/15/2025 CBC W/DIF F immature granulocytes 0.5 % no define d refere nce range Immat ure Granu locyt es (IG) repre sents autom ated enume ratio n of Metam yeloc ytes, Myelo cytes and Promy elocy shlomo when IG is < 5%. Blast s are not inclu ded in IG and repor ruy separ ately if prese nt. Not Available [facility] (Lab) [address], [place], [address], 05/16/2025 09:55:39 05/15/2005/15/2025 CBC W/DIF F absolute neutrophils 11.4 10'3/ uL 1.5-8. 0 high Not Available [facility] (Lab) [address], [place], [address], 05/16/2025 09:55:39 05/15/2005/15/2025 CBC W/DIF F absolute lymphocytes 2.2 10'3/ uL 1.0-4. 0 Not Available [facility] (Lab) [address] [facility], [place], [address], 05/16/2025 09:55:39 05/15/2005/15/2025 CBC W/DIF F absolute monocytes 0.7 10'3/ uL 0.2-1. 0 Not Available [facility] (Lab) [address] [facility], [place], [address], 05/16/2025 09:55:39 05/15/2005/15/2025 CBC W/DIF F absolute eosinophils 0.1 10'3/ uL 0.0-0. 6 Not Available [facility] (Lab) [address] [facility], [place], [address], 05/16/2025 09:55:39 05/15/2005/15/2025 CBC W/DIF F absolute basophils 0.1 10'3/ uL 0.0-0. 3 Not Available [facility] (Lab) [address] [facility], [place], [address], 05/16/2025 09:55:39 05/15/2005/15/2025 CBC W/DIF F absolute [...] hyman book. nm.or g/gen derx Not Available [facility] (Lab) [address], [place], [address], 05/16/2025 09:55:39 05/15/2005/15/2025 GTT - GESTA KHANH Bryce PRIMITIVO Janel, ACOG OB glucose, 1 hour screen 115 mg/dL 70-135 Not Available [facility] (Lab) [address] [facility], [place], [address], 05/16/2025 09:55:40 05/15/20 25 05/15/2025 URIC ACID uric acid 4.1 mg/dL 2.3-6. 6 Not Available [facility] (Lab) [address] [facility], [place], [address], 05/16/2025 09:55:40 05/15/20 25 05/15/2025 CMP(C OMPRE HENSI VE METAB OLIC PANEL ) sodium 138 mmol/ L 133-14 6 Not Available [facility] (Lab) [address] [facility], [place], [address], 05/16/2025 09:55:41 05/15/20 25 05/15/2025 CMP(C OMPRE HENSI VE METAB OLIC PANEL ) potassium 4.1 mmol/ L 3.5-5. 1 Not Available [facility] (Lab) [address] [facility], [place], [address], 05/16/2025 09:55:41 05/15/20 25 05/15/2025 CMP(C OMPRE HENSI VE METAB OLIC PANEL ) chloride 104 mmol/ L 98-107 Not Available [facility] (Lab) [address] [place], [address], 05/16/2025 09:55:41 05/15/20 25 05/15/2025 CMP(C OMPRE HENSI VE METAB OLIC PANEL ) carbon dioxide 24 mmol/ L 21-31 Not Available [facility] (Lab) [address] [place], [address], 05/16/2025 09:55:41 05/15/20 25 05/15/2025 CMP(C OMPRE HENSI VE METAB OLIC PANEL ) anion gap 10 mmol/ L 4-13 Not Available [facility] (Lab) [address] [facility], [place], [address], 05/16/2025 09:55:41 05/15/2005/15/2025 CMP(C OMPRE HENSI VE METAB OLIC PANEL ) blood urea nitrogen 7 mg/dL 7-25 Not Available [facility] (Lab) [address] [facility], [place], [address], 05/16/2025 09:55:41 05/15/2005/15/2025 CMP(C OMPRE HENSI VE METAB OLIC PANEL ) creatinine 0.55 mg/dL 0.60-1 .30 low Not Available [facility] (Lab) [address] [facility], [place], [address], 05/16/2025 09:55:41 05/15/2005/15/2025 CMP(C OMPRE HENSI VE METAB OLIC PANEL ) egfrcr (CKD-epi 2020) >90 mL/mi n/1.7 3_m2 >=60 Not Available [facility] (Lab) [address] [facility], [place], [address], 05/16/2025 09:55:41 05/15/2005/15/2025 CMP(C OMPRE HENSI VE METAB OLIC PANEL ) calcium 8.7 mg/dL 8.3-10 .5 Not Available [facility] (Lab) [address] [facility], [place], [address], 05/16/2025 09:55:41 05/15/2005/15/2025 CMP(C OMPRE HENSI VE METAB OLIC PANEL ) glucose 115 mg/dL 70-100 high Not Available [facility] (Lab) [address] [facility], [place], [address], 05/16/2025 09:55:41 05/15/2005/15/2025 CMP(C OMPRE HENSI VE METAB OLIC PANEL ) protein, total 5.7 g/dL 6.4-8. 3 low Not Available [facility] (Lab) [address] [facility], [place], [address], 05/16/2025 09:55:41 05/15/2005/15/2025 CMP(C OMPRE HENSI VE METAB OLIC PANEL ) albumin 3.1 g/dL 3.5-5. 0 low Not Available [facility] (Lab) [address] [facility], [place], [address], 05/16/2025 09:55:41 05/15/20 25 05/15/2025 CMP(C OMPRE HENSI VE METAB OLIC PANEL ) ALT 9 units /L 9-43 Not Available [facility] (Lab) [address] [facility], [place], [address], 05/16/2025 09:55:41 05/15/2005/15/2025 CMP(C OMPRE HENSI VE METAB OLIC PANEL ) alkaline phosphatase 114 units /L 34-104 high Not Available [facility] (Lab) [address] [facility], [place], [address], 05/16/2025 09:55:41 05/15/20 25 05/15/2025 CMP(C OMPRE HENSI VE METAB OLIC PANEL ) AST 11 units /L 13-39 low Not Available [facility] (Lab) [address] [facility], [place], [address], 05/16/2025 09:55:41 05/15/2005/15/2025 CMP(C OMPRE HENSI VE METAB OLIC PANEL ) bilirubin, total 0.3 mg/dL 0.2-1. 2 Not Available [facility] (Lab) [address] [place], [address], 05/16/2025 09:55:41 05/15/2005/15/2025 HIV 1/2 ANTIG EN/AN TIBOD Y, REFLE X CONFI RMATI ON HIV antigen/anti body Nonrea ctive nonrea ctive HIV-1 antig en and HIV-1 /HIV- 2 antib odies were not detec ruy. No labor atory evide nce of HIV infec tion. Not Available [facility] (Lab) [address] [facility], [place], [address], 05/16/2025 09:55:41 05/15/20 25 05/15/2025 PROTE IN/CR EATIN INE RATIO , URINE creatinine, urine 13.0 mg/dL R-No refer ence range estab lishe d for this assay Not Available [facility] (Lab) [address] [facility], [place], [address], 05/16/2025 09:55:42 05/15/20 25 05/15/2025 PROTE IN/CR EATIN INE RATIO , URINE protein, urine <4 mg/dL R-No refer ence range estab lishe d for this assay Not Available [facility] (Lab) [address] [facility], [place], [address], 05/16/2025 09:55:42 05/15/20 25 05/15/2025 PROTE IN/CR [...] fican t prote inuri a. Not Available [facility] (Lab) [address] [facility], [place], [address], 05/16/2025 09:55:42 05/15/20 25 05/15/2025 RPR SCREE N, REFLE X TITER /CONF IRMAT ION RPR qualitative Nonrea ctive nonrea ctive Not Available [facility] (Lab) [address] [facility], [place], [address], 05/16/2025 09:55:42 06/26/20 25 06/26/2025 PROTE IN/CR EATIN INE RATIO , URINE creatinine, urine 177.6 mg/dL R-No refer ence range estab lishe d for this assay Not Available [facility] (Lab) [address] [facility], [place], [address], 06/27/2025 04:29:05 06/26/20 25 06/26/2025 PROTE IN/CR EATIN INE RATIO , URINE protein, urine 15 mg/dL R-No refer ence range estab lishe d for this assay Not Available [facility] (Lab) [address] [facility], [place], [address], 06/27/2025 04:29:05 06/26/2006/26/2025 PROTE IN/CR EATIN INE [...] fican t prote inuri a. Not Available [facility] (Lab) [address] [facility], [place], [address], 06/27/2025 04:29:05 06/26/20 25 06/26/2025 CBC W/DIF F WBC 13.4 10'3/ uL 3.5-10 .5 high Not Available [facility] (Lab) [address] [facility], [place], [address], 06/27/2025 04:29:05 06/26/20 25 06/26/2025 CBC W/DIF F RBC 4.22 10'6/ uL (based on docume nted legal sex) 3.80-5 .20 Not Available [facility] (Lab) [address] [facility], [place], [address], 06/27/2025 04:29:05 06/26/20 25 06/26/2025 CBC W/DIF F HGB 11.9 g/dL (based on docume nted legal sex) 11.6-1 5.4 Not Available [facility] (Lab) [address] [facility], [place], [address], 06/27/2025 04:29:05 06/26/2006/26/2025 CBC W/DIF F HCT 37.5 % (based on docume nted legal sex) 34.0-4 5.0 Not Available [facility] (Lab) [address] [facility], [place], [address], 06/27/2025 04:29:05 06/26/2006/26/2025 CBC W/DIF F MCV 88.9 fL 80.0-9 9.0 Not Available [facility] (Lab) [address] [facility], [place], [address], 06/27/2025 04:29:05 06/26/2006/26/2025 CBC W/DIF F MCH 28.2 pg 27.0-3 4.0 Not Available [facility] (Lab) [address] [facility], [place], [address], 06/27/2025 04:29:05 06/26/2006/26/2025 CBC W/DIF F MCHC 31.7 g/dL 32.0-3 5.5 low Not Available [facility] (Lab) [address] [facility], [place], [address], 06/27/2025 04:29:05 06/26/2006/26/2025 CBC W/DIF F RDW 14.6 % 11.0-1 5.0 Not Available [facility] (Lab) [address] [facility], [place], [address], 06/27/2025 04:29:05 06/26/2006/26/2025 CBC W/DIF F plt 224 10'3/ uL 150-40 0 Not Available [facility] (Lab) [address] [place], [address], 06/27/2025 04:29:05 06/26/20 06/26/2025 CBC W/DIF F MPV 12.2 fL 8.8-12 .1 high Not Available [facility] (Lab) [address] [facility], [place], [address], 06/27/2025 04:29:05 06/26/20 25 06/26/2025 CBC W/DIF F NRBC's 0.0 % 0.0 Not Available [facility] (Lab) [address] [facility], [place], [address], 06/27/2025 04:29:05 06/26/20 25 06/26/2025 CBC W/DIF F absolute NRBCs 0.0 10'3/ uL no refere nce range establ ished Not Available [facility] (Lab) [address] [facility], [place], [address], 06/27/2025 04:29:05 06/26/20 25 06/26/2025 CBC W/DIF F neutrophils 73.2 % 34.0-7 3.0 high Not Available [facility] (Lab) [address] [facility], [place], [address], 06/27/2025 04:29:05 06/26/20 25 06/26/2025 CBC W/DIF F lymphocytes 18.3 % 15.0-5 0.0 Not Available [facility] (Lab) [address] [facility], [place], [address], 06/27/2025 04:29:05 06/26/20 25 06/26/2025 CBC W/DIF F monocytes 7.5 % 1.0-15 .0 Not Available [facility] (Lab) [address] [facility], [place], [address], 06/27/2025 04:29:05 06/26/20 25 06/26/2025 CBC W/DIF F eosinophils 0.4 % 0.0-8. 0 Not Available [facility] (Lab) [address] [facility], [place], [address], 06/27/2025 04:29:05 06/26/20 25 06/26/2025 CBC W/DIF F basophils 0.2 % 0.0-2. 0 Not Available [facility] (Lab) [address], [place], [address], 06/27/2025 04:29:05 06/26/20 25 06/26/2025 CBC W/DIF [...] separ ately if prese nt. Not Available [facility] (Lab) [address], [place], [address], 06/27/2025 04:29:05 06/26/20 25 06/26/2025 CBC W/DIF F absolute neutrophils 9.8 10'3/ uL 1.5-8. 0 high Not Available [facility] (Lab) [address], [place], [address], 06/27/2025 04:29:05 06/26/20 25 06/26/2025 CBC W/DIF F absolute lymphocytes 2.5 10'3/ uL 1.0-4. 0 Not Available [facility] (Lab) [address], [place], [address], 06/27/2025 04:29:05 06/26/20 25 06/26/2025 CBC W/DIF F absolute monocytes 1.0 10'3/ uL 0.2-1. 0 Not Available [facility] (Lab) [address], [place], [address], 06/27/2025 04:29:05 06/26/20 25 06/26/2025 CBC W/DIF F absolute eosinophils 0.1 10'3/ uL 0.0-0. 6 Not Available [facility] (Lab) [address] [facility], [place], [address], 06/27/2025 04:29:05 06/26/20 25 06/26/2025 CBC W/DIF F absolute basophils 0.0 10'3/ uL 0.0-0. 3 Not Available [facility] (Lab) [address] [facility], [place], [address], 06/27/2025 04:29:05 06/26/20 25 06/26/2025 CBC W/DIF F absolute immature granulocytes 0.1 10'3/ uL 0.00-0 .10 Refer ence range s for nonbi nary/ inter sex or unspe cifie d gende r patie nts have not been estab lishe d. [facility]as [facility] for range s estab lishe d for cisge nder patie nts and evalu ate in the clini patrice kristal xt of the indiv idual patie nt: https :[email or web address] hyman book. nm.or g/gen derx Not Available [facility] (Lab) [address] [facility], [place], [address], 06/27/2025 04:29:05 06/26/2006/26/2025 URIC ACID uric acid 4.8 mg/dL 2.3-6. 6 Not Available [facility] (Lab) [address] [place], [address], 06/27/2025 04:29:06 06/26/2006/26/2025 CMP(C OMPRE HENSI VE METAB OLIC PANEL ) sodium 138 mmol/ L 133-14 6 Not Available [facility] (Lab) [address] [place], [address], 06/27/2025 04:29:06 06/26/20 25 06/26/2025 CMP(C OMPRE HENSI VE METAB OLIC PANEL ) potassium 4.0 mmol/ L 3.5-5. 1 Not Available [facility] (Lab) [address] [place], [address], 06/27/2025 04:29:06 06/26/20 25 06/26/2025 CMP(C OMPRE HENSI VE METAB OLIC PANEL ) chloride 103 mmol/ L 98-107 Not Available [facility] (Lab) [address] [facility], [place], [address], 06/27/2025 04:29:06 06/26/20 25 06/26/2025 CMP(C OMPRE HENSI VE METAB OLIC PANEL ) carbon dioxide 26 mmol/ L 21-31 Not Available [facility] (Lab) [address] [facility], [place], [address], 06/27/2025 04:29:06 06/26/2006/26/2025 CMP(C OMPRE HENSI VE METAB OLIC PANEL ) anion gap 9 mmol/ L 4-13 Not Available [facility] (Lab) [address] [facility], [place], [address], 06/27/2025 04:29:06 06/26/2006/26/2025 CMP(C OMPRE HENSI VE METAB OLIC PANEL ) blood urea nitrogen 7 mg/dL 7-25 Not Available [facility] (Lab) [address] [facility], [place], [address], 06/27/2025 04:29:06 06/26/2006/26/2025 CMP(C OMPRE HENSI VE METAB OLIC PANEL ) creatinine 0.66 mg/dL 0.60-1 .30 Not Available [facility] (Lab) [address] [facility], [place], [address], 06/27/2025 04:29:06 06/26/2006/26/2025 CMP(C OMPRE HENSI VE METAB OLIC PANEL ) egfrcr (CKD-epi 2020) >90 mL/mi n/1.7 3_m2 >=60 Not Available [facility] (Lab) [address] [facility], [place], [address], 06/27/2025 04:29:06 06/26/20 25 06/26/2025 CMP(C OMPRE HENSI VE METAB OLIC PANEL ) calcium 9.0 mg/dL 8.3-10 .5 Not Available [facility] (Lab) [address] [facility], [place], [address], 06/27/2025 04:29:06 06/26/20 25 06/26/2025 CMP(C OMPRE HENSI VE METAB OLIC PANEL ) glucose 74 mg/dL 70-100 Not Available [facility] (Lab) [address] [facility], [place], [address], 06/27/2025 04:29:06 06/26/2006/26/2025 CMP(C OMPRE HENSI VE METAB OLIC PANEL ) protein, total 6.1 g/dL 6.4-8. 3 low Not Available [facility] (Lab) [address] [facility], [place], [address], 06/27/2025 04:29:06 06/26/20 25 06/26/2025 CMP(C OMPRE HENSI VE METAB OLIC PANEL ) albumin 3.3 g/dL 3.5-5. 0 low Not Available [facility] (Lab) [address] [facility], [place], [address], 06/27/2025 04:29:06 06/26/20 25 06/26/2025 CMP(C OMPRE HENSI VE METAB OLIC PANEL ) ALT 36 units /L 9-43 Not Available [facility] (Lab) [address] [facility], [place], [address], 06/27/2025 04:29:06 06/26/20 25 06/26/2025 CMP(C OMPRE HENSI VE METAB OLIC PANEL ) alkaline phosphatase 131 units /L 34-104 high Not Available [facility] (Lab) [address] [place], [address], 06/27/2025 04:29:06 06/26/20 25 06/26/2025 CMP(C OMPRE HENSI VE METAB OLIC PANEL ) AST 20 units /L 13-39 Not Available [facility] (Lab) [address] [facility], [place], [address], 06/27/2025 04:29:06 06/26/20 25 06/26/2025 CMP(C OMPRE HENSI VE METAB OLIC PANEL ) bilirubin, total 0.3 mg/dL 0.2-1. 2 Not Available [facility] (Lab) [address] [facility], [place], [address], 06/27/2025 04:29:06 02/07/20 25 02/06/2025 US, obste tric, nucha l trans lucen cy No observ ation record ed. [email or web address] Connelly [address], [place], [address], 02/06/2025 17:26:10 02/07/20 25 02/06/2025 US, obste tric, follo w-up No observ ation record ed. [email or web address] Vivi [address], [place], [address], 02/07/2025 11:49:39 03/27/20 25 03/27/2025 US, obste tric, 2nd or 3rd trime ster No observ ation record ed. [email or web address] Connelly [address], [place], [address], 03/27/2025 16:50:03 03/27/20 25 03/27/2025 US, obste tric, 2nd or 3rd trime ster No observ ation record ed. [email or web address] Vivi [address], [place], [address], 04/01/2025 20:55:55 04/24/20 25 04/24/2025 US, obste tric, follo w-up No observ ation record ed. [email or web address] Connelly [address], [place], [address], 04/24/2025 18:50:20 04/24/2004/24/2025 US, obste tric, follo w-up No observ ation record ed. [email or web address] Vivi [address], [place], [address], 05/02/2025 18:12:06 05/05/20 25 05/05/2025 US, obste tric, limit ed No observ ation record ed. [address] [facility], [place], [address], 05/08/2025 11:23:32 05/05/20 25 05/05/2025 US, obste tric, limit ed No observ ation record ed. [address] [facility], [place], [address], 05/08/2025 11:23:15 05/06/20 25 05/05/2025 non-s tress test No observ ation record ed. [address] [facility], [place], [address], 05/14/2025 16:17:57 06/12/2006/12/2025 US, obste tric, follo w-up No observ ation record ed. [email or web address] Connelly [address], [place], [address], 06/12/2025 13:37:49 06/12/2006/12/2025 US, obste tric, follo w-up No observ ation record ed. [email or web address] Vivi [address], [place], [address], 06/14/2025 12:40:46 06/26/20 25 06/26/2025 non-s tress test No observ ation record ed. [email or web address] Connelly [address], [place], [address], 06/26/2025 17:40:02 06/26/20 non-s tress test No observ ation record ed. [email or web address] Connelly [address], [place], [address], 06/26/2025 17:40:25 07/03/20 25 07/03/2025 US, obste tric, bioph ysica l profi le + non-s tress test No observ ation record ed. [email or web address] Connelly [address], [place], [address], 07/03/2025 10:21:51 07/03/2007/03/2025 US, obste tric, bioph ysica l profi le + non-s tress test No observ ation record ed. [email or web address] Vivi [address], [place], [address], 07/03/2025 10:36:03 07/03/2007/03/2025 non-s tress test No observ ation record ed. [email or web address] Connelly [address], [place], [address], 07/03/2025 17:34:00 07/03/20 non-s tress test No observ ation record ed. Connel[address], [place], [address], 07/03/2025 16:02:31 07/10/20 25 07/10/2025 US, obste tric, follo w-up No observ ation record ed. [email or web address] Vivi [address], [place], [address], 07/10/2025 11:53:53 07/10/20 25 07/10/2025 US, obste tric, follo w-up No observ ation record ed. [email or web address] Connel[address], [place], [address], 07/10/2025 13:24:28 07/10/2007/10/2025 US, obste tric, bioph ysica l profi le + non-s tress test No observ ation record ed. [email or web address] Connel[address], [place], [address], 07/10/2025 13:24:41 07/10/20 25 07/10/2025 non-s tress test No observ ation record ed. Connelly [address], [place], [address], 07/10/2025 16:54:42 07/10/20 non-s tress test No observ ation record ed. Connel[address], [place], [address], 07/10/2025 16:55:51 07/17/2007/17/2025 non-s tress test No observ ation record ed. [email or web address] Connelly [address], [place], [address], 07/19/2025 11:50:49 07/17/20 non-s tress test No observ ation record ed. Connel[address], [place], [address], 07/17/2025 10:56:47 07/17/2007/17/2025 US, obste tric, bioph ysica l profi le + non-s tress test No observ ation record ed. [email or web address] Connelly [address], [place], [address], 07/17/2025 13:24:17 07/17/20 25 07/17/2025 US, obste tric, bioph ysica l profi le + non-s tress test No observ ation record ed. [email or web address] Vivi [address], [place], [address], 07/17/2025 11:37:56 07/24/20 25 07/24/2025 US, obste tric, bioph ysica l profi le + non-s tress test No observ ation record ed. [email or web address] Vivi [address] [place] [address] [address], [place], [address], 07/24/2025 11:16:54 07/24/20 25 07/24/2025 US, obste tric, bioph ysica l profi le + non-s tress test No observ ation record ed. [facility] [address], [place], [address], 07/24/2025 18:17:48 07/24/20 25 07/24/2025 non-s tress test No observ ation record ed. [facility] [address], [place], [address], 07/24/2025 18:19:09 07/24/20 non-s tress test No observ ation record ed. [email or web address] [place] [address] [address], [place], [address], 07/24/2025 16:00:08 Result Notes None recorded. Problems Name Problem SNOMED Code Status Onset Date Resolution Date Notes Provider Name and Address Organization Details Recorded Time Pregnanc y test negative 131489464 Completed 201409/02/2020 Pregnanc y examinat ion or test, negative result;R ecorded Elsewher e: No Locat ion: Sally malik [facility] S ource: EHR Architectural Project Manager elena: N Practi ce ID: 0001 Grabiel lable Time: 03:15:00 PM Beverley Sun [facility] [place] - [facility] 0 17:56:19 Obesity [id number] Completed 201409/03/2020 Obesity, unspecif ied;Prac bronson ID: 0001 Beverley lopez, [facility] 0 14:20:47 Speciali zed medical examinat ion Completed 201409/02/2020 Routine gynecolo gical examinat ion;Prac bronson ID: 0001 Beverley lopez, [facility] 0 17:57:40 Screenin g for malignan t neoplasm of cervix Completed 201409/02/2020 Pap Smear;Pr actice ID: 0001 Beverley Sun [facility], [facility] 0 17:56:38 Educatio n Completed 201409/02/2020 Family planning ;Recorde d Elsewher e: No Locat ion: [facility] S ource: EHR Architectural Project Manager elena: N Mathieuti ce ID: 0001 Grabiel lable Time: 04:00:00 PM Beverley lopez, [facility] 0 17:55:08 Female infertil ity [id number] Completed 201410/17/2020 Infertil ity, female, of unspecif ied origin;P ractice ID: 0001 Beverley lopez, [facility] 1 10:55:45 Body mass index 30+ - obesity [id number] Completed 201510/17/2020 Body mass index (BMI) 39.0-39. 9, adult;Re corded Elsewher e: No Locat ion: [facility] S ource: EHR Architectural Project Manager elena: N Practi ce ID: 0001 Grabiel lable Time: 11:00:00 AM Beverley Sun [facility], [facility] 1 10:55:40 Syncope and collapse [id number] Completed 201510/17/2020 Syncope and collapse ;Recorde d Elsewher e: No Locat ion: [facility] S ource: EHR Architectural Project Manager elena: N Practi ce ID: 0001 Grabiel lable Time: 10:30:00 AM Beverley Dos Santosmontserrat lopez, [facility] 1 10:56:12 Gestatio n less than 9 weeks [id number] Completed 201509/02/2020 Less than 8 weeks gestatio n of pregnanc y;Practi ce ID: 0001 Beverley Dos Santosmontserrat lopez, [facility] 0 17:55:27 Pregnanc y, childbir th and puerperi um finding Completed 201510/17/2020 Encntr for suprvsn of normal first preg, first trimeste r;Practi ce ID: 0001 Beverley Dos Santosmontserrat lopez, [facility] 1 10:55:59 Gestatio n period, 12 weeks [id number] Completed 201509/02/2020 12 weeks gestatio n of pregnanc y;Practi ce ID: 0001 Beverley Sun null, [facility] 0 17:55:30 Pregnanc y, childbir th and puerperi um finding Completed 201509/02/2020 Encntr for suprvsn of normal first preg, second trimeste r;Practi ce ID: 0001 Beverley Dos Santosmontserrat lopez, [facility] 0 17:56:27 Gestatio n period, 32 weeks [id number] Completed 201509/02/2020 32 weeks gestatio n of pregnanc y;Practi ce ID: 0001 Beverley Dos Santosmontserrat lopez, [facility] 0 17:55:35 Pregnanc y, childbir th and puerperi um finding Completed 201509/03/2020 Encounte r for supervis ion of normal first pregnanc y, third trimeste r;Record ed Elsewher e: No Locat ion: Sally malik [facility] S ource: EHR Architectural Project Manager elena: N Practi ce ID: 0001 Grabiel lable Time: 05:30:00 PM Beverley lopez, [facility] 0 14:20:36 Gestatio n period, 33 weeks [id number] Completed 201509/02/2020 33 weeks gestatio n of pregnanc y;Record ed Elsewher e: No Locat ion: Sally malik [facility] S ource: EHR Architectural Project Manager elena: N Practi ce ID: 0001 Grabiel lable Time: 09:00:00 AM Beverley lopez, [facility] 0 17:55:39 Normal pregnanc y in multigra [place] [id number] 21201 Completed 201509/02/2020 Encounte r for suprvsn of normal pregnanc y, third trimeste r;Practi ce ID: 0001 Beverley lopez, [facility] 0 17:56:11 Gestatio n period, 34 weeks [id number] Completed 201509/02/2020 34 weeks gestatio n of pregnanc y;Practi ce ID: 0001 Beverley lopez, [facility] 0 17:55:42 Pregnanc y-induce d hyperten tonya Completed 201503/27/2021 Gestatio nal htn w/o signific ant proteinu che, third trimeste r;Record ed Elsewher e: No Locat ion: [facility] S ource: EHR Architectural Project Manager elena: N Practi ce ID: 0001 Grabiel lable Time: 03:00:00 PM Beverley lopez, [facility] 1 16:36:34 Gestatio n period, 36 weeks [id number] Completed 201509/02/2020 36 weeks gestatio n of pregnanc y;Practi ce ID: 0001 Beverley lopez, [facility] 0 17:55:48 Single live from singleto n pregnanc y [id number] Completed 201509/03/2020 Single live ;Pr actice ID: 0001 Beverley lopez, [facility] 0 14:20:54 Gestatio n period, 37 weeks [id number] Completed 201509/02/2020 37 weeks gestatio n of pregnanc y;Practi ce ID: 0001 Beverley lopze, [facility] 0 17:55:50 Pregnanc y-induce d hyperten tonya Completed 201509/02/2020 Gestatio nal htn w/o signific ant proteinu che, unsp trimeste r;Practi ce ID: 0001 Beverley lopez, [facility] 0 17:57:29 Hyperten sive disorder [id number] Completed 201503/27/2021 Benign hyperten tonya;Rec orded Elsewher e: No Locat ion: Sally malik [facility] S ource: EHR Architectural Project Manager elena: N Practi ce ID: 0001 Grabiel lable Time: 10:30:00 AM Beverley lopez [facility] 5 19:18:30 Non-prot einuric hyperten tonya of pregnanc y [id number] Completed 201510/17/2020 Gestatnl htn without signific ant protein, comp the puerp;Pr actice ID: 0001 Beverley lopez, [facility] 1 10:56:02 Lochia finding Completed 201510/17/2020 Encounte r for routine postpart um follow-u p;Practi ce ID: 0001 Beverley lopez [facility] 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 0 17:56:45 Pregnanc y detectio n examinat ion Completed 201809/02/2020 Encounte r for pregnanc y test, result positive ;Practic e ID: 0001 Beverley lopez, [facility] 0 17:56:17 Uterine size for dates discrepa ncy Completed 201810/17/2020 Uterine size-malia e discrepa ncy, first trimeste r;Practi ce ID: 0001 Beverley Sun jessica, [facility] 1 10:56:17 Secondar y amenorrh ea [id number] Completed 201810/17/2020 Secondar y amenorrh ea;Recor ded Elsewher e: No Locat ion: [facility]ce[facility]: N Mathieuti ce ID: 0001 Grabiel lable Time: 10:30:00 AM Beverley lopez [facility] 1 10:56:05 Infectio n screenin g Completed 201809/02/2020 Encounte r for screenin g for oth infec/pa rastc diseases ;Recorde d Elsewher e: No Locat ion: [facility] S ource: EHR Architectural Project Manager elena: N Practi ce ID: 0001 Grabiel lable Time: 10:30:00 AM Beverley lopez [facility] 0 17:56:03 Syphilis test finding [id number] Completed 201809/03/2020 Encntr screen for infectio ns w sexl mode of transmis s;Record ed Elsewher e: No Locat ion: [facility] S ource: EHR Architectural Project Manager elena: N Practi ce ID: 0001 Grabiel lable Time: 10:30:00 AM Beverley lopez [facility] 0 14:20:58 Finding of viabilit y of pregnanc y [id number] Completed 201809/02/2020 Pregnanc y w inconclu sive viabilit y, unsp;Pra ctice ID: 0001 Beverley lopez, [facility] 0 17:55:21 Finding of contents of cervix [id number] Completed 201809/02/2020 Weeks of gestatio n of pregnanc y not specifie d;Practi ce ID: 0001 Beverley Sun [facility], [facility] 0 17:55:14 Threaten ed miscarri age [id number] Completed 201810/17/2020 Threaten ed ;Recorde d Elsewher e: No Locat ion: [facility] S ource: EHR Architectural Project Manager elena: N Practi ce ID: [id number] Grabiel lable Time: 12:30:00 PM Beverley Sun [facility], [facility] 1 10:56:15 Gestatio n period, 8 weeks [id number] Completed 201809/02/2020 8 weeks gestatio n of pregnanc y;Practi ce ID: 0001 Beverley Sun [facility], [facility] 0 17:55:55 Rubella screenin g status [id number] Completed 201809/02/2020 Encounte r for antenata l screenin g, unspecif ied;Benitez rded Elsewher e: No [facility] S ource: EHR Architectural Project Manager elena: N Practi ce ID: 0001 Grabiel lable Time: 04:30:00 PM Beverley Sun [facility], [facility] 0 17:56:34 Antenata l screenin g Completed 201809/02/2020 Encounte r for antenata l screenin g for nuchal transluc ency;Pra ctice ID: 0001 Beverley lopez, [facility] 0 17:57:11 Antenata l screenin g for malforma tion Completed 201809/02/2020 Encounte r for antenata l screenin g for malforma tions;Re corded Elsewher e: No Locat ion: [facility] S ource: EHR Architectural Project Manager elena: N Practi ce ID: 0001 Grabiel lable Time: 08:15:00 AM Beverley lopez, [facility] 0 17:57:13 Gestatio n period, 29 weeks [id number] Completed 201809/02/2020 29 weeks gestatio n of pregnanc y;Record ed Elsewher e: No Locat ion: [facility] S ource: EHR Architectural Project Manager elena: N Practi ce ID: 0001 Grabiel lable Time: 03:45:00 PM Beverley Sun jessica, [facility] 0 17:55:32 Clinical finding Completed 201810/17/2020 Tachycar rishi, unspecif ied;Benitez rded Elsewher e: No [facility] S ource: EHR Architectural Project Manager elena: N Practi ce ID: 0001 Grabiel lable Time: 11:15:00 AM Beverley lopez, [facility] 1 10:55:44 Clinical finding Completed 201809/02/2020 Obesity, unspecif ied;Benitez rded Elsewher e: No [facility] S ource: EHR Architectural Project Manager elena: N Practi ce ID: 0001 Grabiel lable Time: 03:00:00 PM Beverley lopez, [facility] 0 17:55:24 Finding of body mass index 232372977 Completed 201809/02/2020 Body mass index (BMI) 40.0-44. 9, adult;Re corded Elsewher e: No [facility] S ource: EHR Architectural Project Manager elena: N Practi ce ID: 0001 Grabiel lable Time: 02:00:00 PM Beverley lopez, [facility] 0 17:56:59 Gestatio n period, 35 weeks 57727591 Completed 201809/02/2020 35 weeks gestatio n of pregnanc y;Record ed Elsewher e: No Locat ion: Sally malik [facility] S ource: EHR Architectural Project Manager elena: N Practi ce ID: 0001 Grabiel lable Time: 02:00:00 PM Beverley lopez [facility] 0 17:55:44 Severe obesity complica ting pregnanc y 4939971596 4780904 Completed 201810/17/2020 Obesity complica ting pregnanc y, third trimeste r;Record ed Elsewher e: No Locat ion: Sally malik [facility] S ource: EHR Architectural Project Manager elena: N Practi ce ID: 0001 Grabiel lable Time: 03:00:00 PM Beverley lopez [facility] 1 10:56:10 Gestatio n period, 38 weeks 87112675 Completed 201809/02/2020 38 weeks gestatio n of pregnanc y;Record ed Elsewher e: No Locat ion: [facility] S ource: EHR Architectural Project Manager elena: N Practi ce ID: 0001 Grabiel lable Time: 11:00:00 AM Beverley lopez, [facility] 0 17:55:53 Hyperten tonya in the obstetri c context Completed 201810/17/2020 Pre-exis ting essentia l htn comp pregnanc y, third trimeste r;Practi ce ID: 0001 Beverley lopez, [facility] 1 10:55:52 Attentio n deficit hyperact ivity disorder 692076384 Active 2024 stopped taking medicati on when found out Beverley lopez [facility] 19:38:30 Mixed anxiety and depressi ve disorder 906781568 Active 2024 Beverley lopez, [facility] 19:37:00 Hyperten sive disorder 83991026 Active 2024 Medina Whitaker CNM [address], [place], [address], [facility] 17:26:39 Headache 43834265 Active 2024 Beverley lopez, [facility] 19:37:14 Pregnanc y 92761048 Active 2024 Beverley Sun [facility], [facility] 19:36:35 Mixed anxiety and depressi ve disorder 468998498 Active 2024 Beverley lopez, [facility] 19:37:00 Headache 00130896 Active 2024 Beverley Sun [facility], [facility] 19:37:14 Past pregnanc y history of gestatio nal hyperten tonya 015342829 Active 2024 2016 pregnanc y start bASA x 2 daily Medina Whitaker CNM [address], [place], [address], [facility] 17:26:14 Attentio n deficit hyperact ivity disorder 201460087 Active 2024 stopped taking medicati on when found out Beverley Sun [facility], [facility] 19:38:30 Obesity 972238620 Active 2024 antenata l testing @ [facility] Sonya lopez, [facility] 5 20:55:07 Hyperten tonya AND/OR vomiting complica ting pregnanc y childbir th AND/OR puerperi 711003525 Active 2024 Medina Whitaker CNM [address], [place], [address], [place] [facility] 5 15:51:32 Notes:Encounter for antenata l screening of mother Recorded Elsewhere: No Location: [facility] Source: EHR Chronic: N Practice ID: [id number] Billable Time: 10:30:00 AM Encounter for screening of mother Practice ID: [id number] Encounter for screening of mother Recorded Elsewhere: No Location: [facility] Source: EHR Chronic: N Practice ID: 0001 Billable Time: 10:30:00 AM Encounter for screening of mother Practice ID: 0001 Problem Notes None recorded. Procedures Surgical History Date Name Laterality Status Provider Name and Address Organization Details Recorded Time 1 Date of Last Pap Smear completed [facility] 02/06/2025 08:37:03 1 extraction of wisdom tooth completed [facility] 02/06/2025 19:33:27 Imaging Results None recorded. [...] Prescrib ed Elsewher e: No [facility] odify By: [email or web address] z [...] hours if needed 09/02 completed [facility] No Locat ion: [facility] odify By: rocio solorzano DateTime : [...] Prescrib ed Elsewher e: No Locat ion: [facility] odify By: cmsguillermo z Hiro solorzano DateTime : 03/31/20 15 09:00:00 AM Not Available Not Available Not Available methylpre dnisolone 4 mg tablets in a dose pack FOLLOW PACKAGE DIRECTIO NS. DO NOT TAKE NSAIDS DURING STEROID PACK 02/25 completed Not Available Not Available Not Available labetalol 100 mg tablet take 1 tablet by oral route 2 times every day 07/23 completed Prescrib ed Elsewher e: No Locat ion: [facility] odify By: [email or web address] Brea haley DateTime : 07/05/20 16 12:34:25 PM Not [...] DateTime 06/26/2025 140/90 mm[Hg] Medina Whitaker , JENNIFER [address], [place], [address], [facility] 06/26/2025 15:51:43 Date Recorded Body height Body mass index (BMI) Body weight Provider Name and Address Organization Details Last Updated DateTime 06/26/2025 167.64 cm 49.6 kg/m2 820451.86 g Jaqueline Maier [facility] 06/26/2025 14:59:44 Social History Question Answer Notes LastModified by Organizat ion Details LastModified Time Tobacco Smoking Status Never Smoker Beverley lopez, [facility] 03/21/2020 13:16:23 Do You Have An Advance Directive? No Information n ot available 01/07/2025 If You Are , What Was Your Level Of Alcohol Consumption Prior To ? Occasional [email or web address] Information not available 10/17/2020 Are You Blind Or Do You Have Difficulty Seeing? No [email or web address] Information n ot available 03/27/2021 What Is Your Level Of Caffeine Consumption? Occasional [email or web address] Information not available 10/17/2020 In The 14 Days Before Symptom Onset, Have You Had Close Contact With A Laboratory-confirm ed COVID-19 While That Case Was Ill? No [email or web address] Information n ot available 03/27/2021 In The 14 Days Before Symptom Onset, Have You Had Close Contact With A Person Who Is Under Investigation For COVID-19 While That Person Was Ill? No Information not available 03/27/2021 Have You Been To An Area Known To Be High Risk For COVID-19? No [email or web address] Information not available 03/27/2021 Are You Deaf Or Do You Have Serious Difficulty Hearing? No [email or web address] Information not available 03/27/2021 What Type Of Diet Are You Following? REGULAR Information n ot available 03/27/2021 What Is The Highest Grade Or Level Of School You Have Completed Or The Highest Degree You Have Received? [id number] Information not available 01/07/2025 What Was The Date Of Your Most Recent Tobacco Screening? 02/06/2025 Information not available 02/06/2025 Have You Ever Been Counseled For Unhealthy Alcohol Use? No [email or web address] Information not available 10/17/2020 Do You Use Protection During Sex? No Information not available 01/07/2025 Do You Use Your Seat Belt Or Car Seat Routinely? Yes [email or web address] Information not available 03/27/2021 Do You Have Smoke And Carbon Monoxide Detectors In Your Home? Yes [email or web address] Information not available 03/27/2021 How Much Tobacco Do You Smoke? No [email or web address] Information not available 03/21/2020 Do You Use Sunscreen Routinely? Yes [email or web address] Information not available 03/27/2021 Has Tobacco Cessation Counseling Been Provided? No Information not available 10/17/2020 Have You Used IV Drugs? No Information not available 01/07/2025 Do You Have Difficulty Walking Or Climbing Stairs? No [email or web address] Information not available 02/06/2025 Sex: Unknown Functional Status Question Answer Note LastModified by Organizat ion Details LastModified Time Do you use any illicit or recreational drugs? No [email or web address] Information not available 10/17/2020 Do you or have you ever used any other forms of tobacco or nicotine? No [email or web address] Information not available 10/17/2020 What is your level of alcohol consumption? None [email or web address] Information not available 02/06/2025 Do you or have you ever used smokeless tobacco? Never used smokeless tobacco [email or web address] Information not available 03/21/2020 Are you able to walk independently without assistance or assistive devices? YESWOREST [email or web address] Information not available 03/27/2021 Are you able to care for yourself independently? Yes [email or web address] Information not available 02/06/2025 Do you have difficulty dressing, bathing, grooming, or toileting? No [email or web address] Information not available 02/06/2025 Do you or have you ever used e-cigarettes or vape? Never used electronic cigarettes [email or web address] Information not available 03/21/2020 What is your exercise level? Occasional [email or web address] Information not available 03/21/2020 Mental Status Question Answer Note LastModified by Organization D etails LastModified Time Do you feel stressed (tense, restless, nervous, or anxious, or unable to sleep at night)? [id number] [email or web address] Information not available 03/27/2021 Family History Relationship Description Onset Age of this Age Resolved Age Notes LastModified by Organization Details LastModified Time Mother Disorder of thyroid gland [email or web address] Not available 03/21 13:15:49 Father Diabetes mellitus [email or web address] Not available 03/21 13:16:06 Maternal Grandfather Diabetes mellitus [email or web address] Not available 03/21 13:16:06 Maternal Grandmother Malignant [...] ICD10 Code Diagnosis IMO Codes Diagnosis Note [id number] [place] [address] [address] 05/29/2025 09:18:49 05/29/2025 09:51:39 Gestation period, 29 weeks 22763870 Z3A.29 0243391 [id number] Lobito Salinas MD Connelly [address],[place] [address] 06/12/2025 11:17:33 06/12/2025 12:05:04 Large for gestation age fetus 001851196 O36.60X0 Z3A.31 05902509 [id number] Medina Whitaker [facility] [address],[place] [address] 06/12/2025 11:18:32 06/12/2025 14:07:15 Gestation period, 31 weeks 06146753 Z3A.31 6354742 [id number] Medina Whitaker [facility] [address],[place] [address] 06/26/2025 14:50:38 06/26/2025 15:53:19 Gestation period, 33 weeks 08076320 Z3A.33 5993630 [id number] [facility] [address],[place] [address] 06/26/2025 15:32:15 06/26/2025 17:47:00 Hypertension AND/OR vomiting complicating childbirth AND/OR puerperium 456583127 O13.3 [id number] Health Concerns Section Related Observation LastModified by Organization Detai ls LastModified Time None Recorded Concern Status LastModified by Organization Details LastModified Time None Recorded Payers Encounter Date Sequence Insurance Name Policy Number Policy [place] Covered Member ID [place] Member ID Guarantor Name 06/26/2025 1 [facility] [id number] Apolinar Rivers [id number] Whit Rivers Notes Date Note Type Note Provider Name and Address Organization Details Recorded Time 06/26/2025 text/html Generic HPI TemplateReported by Patient Medina Whitaker CNM [address], [place], [address], [facility] 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 Status 02/07/20 25 1 O Positive 291 Apolinar Silvestre OPEN Fetus Data First Name Last Name Admitted to NICU Weight (g) Sex Living Outcome Pediatric Complications Fetus ID Race Codes Race Delivery Type [id number] Problems Problem Notes Problem Name Start Date End Date Resolution Snomed Code Not e Attention deficit hyperactivity disorder 02/06/2025 720391543 stopped taking medication when found out Past history of gestational hypertension 02/06/2025 502041536 2015 pregnancys tart bASA x 2 daily Obesity 02/07/2025 697800462 testing @ 34w[facility] Headache 02/06/2025 92885309 Mixed anxiety and depressive disorder 02/06/2025 734696677 Hypertension AND/OR vomiting complicating childbirth AND/OR puerperium 06/26/2025 461527434 Alfa Calculation Initial Alfa Date Initial Exam [...] Weight in lbs Pre/Post Dialysis Refused Weight 289.099643434408 BP Diastolic BP Location Tested BP Systolic [...] Weight in lbs Pre/Post Dialysis Refused Weight 294.290220772504 BP Diastolic BP Location Tested BP Systolic [...] Type Weight in lbs Pre/Post Dialysis Refused 297.725410450080 BP Diastolic BP Location Tested BP Systolic [...] Type Weight in lbs Pre/Post Dialysis Refused 302.578483403588 BP Diastolic BP Location Tested BP Systolic [...] Weight in lbs Pre/Post Dialysis Refused Weight 305.706182893297 BP Diastolic BP Location Tested BP Systolic [...] Weight in lbs Pre/Post Dialysis Refused Weight 306.297562652116 BP Diastolic BP Location Tested BP Systolic [...] Weight in lbs Pre/Post Dialysis Refused Weight 305.738150758191 BP Diastolic BP Location Tested BP Systolic [...] Weight in lbs Pre/Post Dialysis Refused Weight 307.757555597349 BP Diastolic BP Location Tested BP Systolic [...] Type Weight in lbs Pre/Post Dialysis Refused 308.793367339864 BP Diastolic BP Location Tested BP Systolic BP Type 81 L arm 132 sitting Fetus Heart Rate Present Fetus Movement A Yes Comments Flowsheet Date 07/03/2025 Bunn Score Blood Edema Fundus Height Fundus Units Glucose Ketones Leukocytes Nitrite Labor Signs Protein Cervic Dilation Cervic Effacement Cervic Station Type Weight in lbs Pre/Post Dialysis Refused 308.365115934740 BP Diastolic BP Location Tested BP Systolic [...] Weight in lbs Pre/Post Dialysis Refused Weight 310.907430176639 BP Diastolic BP Location Tested BP Systolic BP Type 85 L arm 128 sitting Fetus Heart Rate Present Fetus Movement A Yes Comments Flowsheet Date 07/10/2025 Bunn Score Blood Edema Fundus Height Fundus Units Glucose Ketones Leukocytes Nitrite Labor Signs Protein Cervic Dilation Cervic Effacement Cervic Station Type Weight in lbs Pre/Post Dialysis Refused 310.107397908229 BP Diastolic BP Location Tested BP Systolic [...] Type Weight in lbs Pre/Post Dialysis Refused 311.715517690117 BP Diastolic BP Location Tested BP Systolic [...] Weight in lbs Pre/Post Dialysis Refused Weight 312.158255724154 BP Diastolic BP Location Tested BP Systolic BP Type 84 L arm 131 sitting Fetus Heart Rate Present Fetus Movement A Yes Comments Flowsheet Date 07/24/2025 Bunn Score Blood Edema Fundus Height Fundus Units Glucose Ketones Leukocytes Nitrite Labor Signs Protein Cervic Dilation Cervic Effacement Cervic Station 1cm 50% -2 Type Weight in lbs Pre/Post Dialysis Refused Weight 312.152123745061 BP Diastolic BP Location Tested BP Systolic [...]
--- OUTSIDE RECORDS SUMMARY | 2025-07-26 05:56 | XMS_ITS | Continuity of Care Document ---
Author Organization [facility] Address [address] [place] [address] Care Team Providers Care Football Scout Name Role Phone HA MORTON Primary Care Provider [phone] Assessment Encounter Date Assessment Date Assessment LastModified by Organization Details LastModified Time 06/12/2025 06/12/2025 Patient is _31__weeks . Discussed plan. Not available 06/12/2025 14:00:53 Plan of Treatment Reminders Order Date Submit [...] Not Available [facility] [address], [place], [address], 02/14/2025 01:55:32 02/15/20 25 02/14/2025 [UNIT Y] ANEUP LOIDY NIPT 22Q11.2 microdeletio n LOW RISK <1 in 10,000 normal Not Available [facility] [address], [place], [address], 02/14/2025 01:55:32 02/15/20 25 02/14/2025 [UNIT Y] ANEUP LOIDY NIPT sex chromosome aneuploidy NOT DETECT ED normal Not Available [facility] [address], [place], [address], 02/14/2025 01:55:32 02/15/20 25 02/14/2025 [UNIT Y] ANEUP LOIDY NIPT monosomy X LOW RISK <1 in 10,000 normal Not Available [facility] [address], [place], [address], 02/14/2025 01:55:32 02/15/20 25 02/14/2025 [UNIT Y] ANEUP LOIDY NIPT trisomy 13 LOW RISK <1 in 10,000 normal Not Available [facility] [address], [place], [address], 02/14/2025 01:55:32 02/15/20 25 02/14/2025 [UNIT Y] ANEUP LOIDY NIPT trisomy 18 LOW RISK <1 in 10,000 normal Not Available [facility] [address], [place], [address], 02/14/2025 01:55:32 02/15/20 25 02/14/2025 [UNIT Y] ANEUP LOIDY NIPT trisomy 21 LOW RISK <1 in 10,000 normal Not Available [facility] [address], [place], [address], 02/14/2025 01:55:32 02/15/20 25 02/14/2025 [UNIT Y] ANEUP LOIDY NIPT sex MALE normal Not Available [facility] [address], [place], [address], 02/14/2025 01:55:32 02/15/20 25 02/14/2025 [UNIT Y] ANEUP LOIDY NIPT gestation SINGLE TON normal Not Available [facility] [address], [place], [address], 02/14/2025 01:55:32 02/15/20 25 02/14/2025 [UNIT Y] ANEUP LOIDY NIPT for detailed report, see pdf See PDF normal Not Available [facility] [address], [place], [address], 02/14/2025 01:55:32 02/18/20 25 02/17/2025 [UNIT Y] OTTO Islas sickle cell disease/beta -thalassemia /hemoglobino pathies carrier screen NEGATI VE normal Not Available [facility] [address], [place], [address], 02/17/2025 10:24:39 02/18/20 25 02/17/2025 [UNIT Y] OTTO Islas alpha-thalas semia carrier screen NEGATI VE normal Not Available [facility] [address], [place], [address], 02/17/2025 10:24:39 02/18/20 25 02/17/2025 [UNIT Y] OTTO LANGFORD Janel cystic fibrosis carrier screen NEGATI VE normal Not Available [facility] [address], [place], [address], 02/17/2025 10:24:39 02/18/20 25 02/17/2025 [UNIT Y] OTTO LANGFORD Janel spinal muscular atrophy carrier screen NEGATI VE 2 SMN1 copies , SNP not presen t normal Not Available [facility] [address], [place], [address], 02/17/2025 10:24:39 02/18/20 25 02/17/2025 [UNIT Y] OTTO LANGFORD Janel for detailed report, see pdf See PDF normal Not Available [facility] [address], [place], [address], 02/17/2025 10:24:39 02/07/20 25 02/06/2025 CBC W/DIF F WBC 12.0 10'3/ uL 3.5-10 .5 high Not Available [facility] (Lab) [address], [place], [address], 02/07/2025 13:12:55 02/07/20 25 02/06/2025 CBC W/DIF F RBC 4.52 10'6/ uL (based on docume nted legal sex) 3.80-5 .20 Not Available [facility] (Lab) [address] , [place], [address], 02/07/2025 13:12:55 02/07/20 25 02/06/2025 CBC W/DIF F HGB 12.4 g/dL (based on docume nted legal sex) 11.6-1 5.4 Not Available [facility] (Lab) [address], [place], [address], 02/07/2025 13:12:55 02/07/20 25 02/06/2025 CBC W/DIF F HCT 38.9 % (based on docume nted legal sex) 34.0-4 5.0 Not Available [facility] (Lab) [address], [place], [address], 02/07/2025 13:12:55 02/07/20 25 02/06/2025 CBC W/DIF F MCV 86.1 fL 80.0-9 9.0 Not Available [facility] (Lab) [address], [place], [address], 02/07/2025 13:12:55 02/07/20 25 02/06/2025 CBC W/DIF F MCH 27.4 pg 27.0-3 4.0 Not Available [facility] (Lab) [address], [place], [address], 02/07/2025 13:12:55 02/07/20 25 02/06/2025 CBC W/DIF F MCHC 31.9 g/dL 32.0-3 5.5 low Not Available [facility] (Lab) [address], [place], [address], 02/07/2025 13:12:55 02/07/20 25 02/06/2025 CBC W/DIF F RDW 12.9 % 11.0-1 5.0 Not Available [facility] (Lab) [address], [place], [address], 02/07/2025 13:12:55 02/07/20 25 02/06/2025 CBC W/DIF F plt 281 10'3/ uL 150-40 0 Not Available [facility] (Lab) [address], [place], [address], 02/07/2025 13:12:55 02/07/20 25 02/06/2025 CBC W/DIF F MPV 11.0 fL 8.8-12 .1 Not Available [facility] (Lab) [address], [place], [address], 02/07/2025 13:12:55 02/07/20 25 02/06/2025 CBC W/DIF F NRBC's 0.0 % 0.0 Not Available [facility] (Lab) [address], [place], [address], 02/07/2025 13:12:55 02/07/20 25 02/06/2025 CBC W/DIF F absolute NRBCs 0.0 10'3/ uL no refere nce range establ ished Not Available [facility] (Lab) [address], [place], [address], 02/07/2025 13:12:55 02/07/20 25 02/06/2025 CBC W/DIF F neutrophils 72.5 % 34.0-7 3.0 Not Available [facility] (Lab) [address], [place], [address], 02/07/2025 13:12:55 02/07/20 25 02/06/2025 CBC W/DIF F lymphocytes 20.4 % 15.0-5 0.0 Not Available [facility] (Lab) [address], [place], [address], 02/07/2025 13:12:55 02/07/20 25 02/06/2025 CBC W/DIF F monocytes 5.9 % 1.0-15 .0 Not Available [facility] (Lab) [address] [facility], [place], [address], 02/07/2025 13:12:55 02/07/20 25 02/06/2025 CBC W/DIF F eosinophils 0.6 % 0.0-8. 0 Not Available [facility] (Lab) [address] [place], [address], 02/07/2025 13:12:55 02/07/20 25 02/06/2025 CBC W/DIF F basophils 0.3 % 0.0-2. 0 Not Available [facility] (Lab) [address], [place], [address], 02/07/2025 13:12:55 02/07/20 25 02/06/2025 CBC W/DIF [...] separ ately if prese nt. Not Available [facility] (Lab) [address] [facility], [place], [address], 02/07/2025 13:12:55 02/07/20 25 02/06/2025 CBC W/DIF F absolute neutrophils 8.7 10'3/ uL 1.5-8. 0 high Not Available [facility] (Lab) [address] , [place], [address], 02/07/2025 13:12:55 02/07/20 25 02/06/2025 CBC W/DIF F absolute lymphocytes 2.4 10'3/ uL 1.0-4. 0 Not Available [facility] (Lab) [address] [facility], [place], [address], 02/07/2025 13:12:55 02/07/20 25 02/06/2025 CBC W/DIF F absolute monocytes 0.7 10'3/ uL 0.2-1. 0 Not Available [facility] (Lab) [address] [facility], [place], [address], 02/07/2025 13:12:55 02/07/20 25 02/06/2025 CBC W/DIF F absolute eosinophils 0.1 10'3/ uL 0.0-0. 6 Not Available [facility] (Lab) [address] [facility], [place], [address], 02/07/2025 13:12:55 02/07/20 25 02/06/2025 CBC W/DIF F absolute basophils 0.0 10'3/ uL 0.0-0. 3 Not Available [facility] (Lab) [address] [facility], [place], [address], 02/07/2025 13:12:55 02/07/2002/06/2025 CBC W/DIF F absolute [...] bhand book. nm.or g/gen derx Not Available [facility] (Lab) [address] [facility], [place], [address], 02/07/2025 13:12:55 02/07/2002/06/2025 HEPAT ITIS B SURFA CE ANTIG EN hepatitis B surface antigen Non-re active non-re active This assay was perfo rmed using [employer] ratio n reage nts and test kits. Value s obtai dexter with other assay metho ds or kits canno t be used inter lopez eably . Not Available [facility] (Lab) [address] [facility], [place], [address], 02/07/2025 13:12:55 02/07/2002/06/2025 HIV 1/2 ANTIG EN/AN TIBOD Y, REFLE X CONFI RMATI ON HIV antigen/anti body Nonrea ctive nonrea ctive HIV-1 antig en and HIV-1 /HIV- 2 antib odies were not detec ruy. No labor atory evide nce of HIV infec tion. Not Available [facility] (Lab) [address] [facility], [place], [address], 02/07/2025 13:12:56 02/07/2002/06/2025 HEPAT ITIS C ANTIB ANITA SCREE N, REFLE X TO CONFI RMATI ON hepatitis C antibody Non-re active non-re active Antib odies to HCV Not Detec ruy, does not exclu de the possi bilit y of expos ure to HCV. Not Available [facility] (Lab) [address] [facility], [place], [address], 02/07/2025 13:12:56 02/07/20 25 02/06/2025 RUBEL LA IGG ANTIB ANITA, QUANT rubella antibodies, IgG Reacti ve reacti ve Not Available [facility] (Lab) [address] [facility], [place], [address], 02/07/2025 13:12:56 02/07/20 25 02/06/2025 RUBEL LA IGG ANTIB ANITA, QUANT rubella antibodies, IgG quant 61.9 IU/mL >=10 Non-r eacti ve (Non- Immun e) <10 IU/mL React essie (Immu ne) > or = 10 IU/mL Not Available [facility] (Lab) [address] [facility], [place], [address], 02/07/2025 13:12:56 02/07/2002/06/2025 TYPE/ RH/SC REEN ABO/Rh type O POS Not Available [facility] (Lab) [address] [facility], [place], [address], 02/07/2025 13:12:57 02/07/2002/06/2025 TYPE/ RH/SC REEN antibody screen NEG Not Available [facility] (Lab) [address] [facility], [place], [address], 02/07/2025 13:12:57 02/07/2002/06/2025 TYPE/ RH/SC REEN exp date 2024 23:59 Not Available [facility] (Lab) [address] [facility], [place], [address], 02/07/2025 13:12:57 02/07/20 02/06/2025 RPR SCREE N, REFLE X TITER /CONF IRMAT ION RPR qualitative Nonrea ctive nonrea ctive Not Available [facility] (Lab) [address] [facility], [place], [address], 02/07/2025 13:12:57 02/07/20 25 02/06/2025 HEMOG LOBIN [...] >8.0% Actio n sugge sted Not Available [facility] (Lab) [address] [facility], [place], [address], 02/07/2025 13:12:57 02/07/2002/06/2025 CULTU RE: URINE result report SEE RESULT S BELOW Test: Cultu re: Urine Speci men Sourc e: Urine - Clean Catch Speci men Type: Urine Speci men Date: 2024 1737 Resul t Date: 2024 0700 Resul t Statu s: Final resul t Abnor mal: No Resul ting Lab: [facility] [address] [facility] [address] Tel: [phone] CULTU RE ----- ----- ----- --- Cultu re resul t (>=3 organ isms prese nt) indic ates possi ble conta minat ion. Repea t cultu re if sympt oms indic ate. Not Available [facility] (Lab) [address] [facility], [place], [address], 02/08/2025 08:03:32 02/07/20 25 02/06/2025 drug scree n, urine Amphetamines : negati ve Not Available [facility] [address], [place], [address], 02/06/2025 18:30:19 02/07/20 25 02/06/2025 drug scree n, urine Cannabinoids : negati ve Not Available [facility] [address], [place], [address], 02/06/2025 18:30:19 02/07/20 25 02/06/2025 drug scree n, urine Cocaine: negati ve Not Available [facility] [address], [place], [address], 02/06/2025 18:30:19 02/07/20 25 02/06/2025 drug scree n, urine Opiates: negati ve Not Available [facility] [address], [place], [address], 02/06/2025 18:30:19 02/07/20 25 02/06/2025 drug scree n, urine Phenocyclidi ne: negati ve Not Available [facility] [address], [place], [address], 02/06/2025 18:30:19 02/07/20 25 02/06/2025 drug scree n, urine Barbiturates : negati ve Not Available [facility] [address], [place], [address], 02/06/2025 18:30:19 02/07/20 25 02/06/2025 drug scree n, urine Benzodiazepi brayan: negati ve Not Available [facility] [address], [place], [address], 02/06/2025 18:30:19 02/07/20 25 02/06/2025 drug scree n, urine Ethanol: negati ve Not Available [facility] [address], [place], [address], 02/06/2025 18:30:19 02/07/2002/06/2025 drug scree n, urine Hallucinogen s: negati ve Not Available [facility] [address], [place], [address], 02/06/2025 18:30:19 02/07/20 25 02/06/2025 drug scree n, urine Inhalants: negati ve Not Available [facility] [address], [place], [address], 02/06/2025 18:30:19 02/07/20 25 02/06/2025 drug scree n, urine Anabolic Steroids: negati ve Not Available [facility] [address], [place], [address], 02/06/2025 18:30:19 02/07/20 25 02/06/2025 drug scree n, urine Other: negati ve Not Available [facility] [address], [place], [address], 02/06/2025 18:30:19 05/15/20 25 05/15/2025 HEMOG LOBIN (HGB) HGB 10.9 g/dL (based on docume nted legal sex) 11.6-1 5.4 low Not Available [facility] (Lab) [address] [place], [address], 05/16/2025 09:55:38 05/15/20 25 05/15/2025 HEMAT OCRIT (HCT) HCT 35.7 % (based on docume nted legal sex) 34.0-4 5.0 Not Available [facility] (Lab) [address] , [place], [address], 05/16/2025 09:55:39 05/15/20 25 05/15/2025 CBC W/DIF F WBC 14.6 10'3/ uL 3.5-10 .5 high Not Available [facility] (Lab) [address], [place], [address], 05/16/2025 09:55:39 05/15/2005/15/2025 CBC W/DIF F RBC 4.01 10'6/ uL (based on docume nted legal sex) 3.80-5 .20 Not Available [facility] (Lab) [address], [place], [address], 05/16/2025 09:55:39 05/15/2005/15/2025 CBC W/DIF F HGB 10.9 g/dL (based on docume nted legal sex) 11.6-1 5.4 low Not Available [facility] (Lab) [address], [place], [address], 05/16/2025 09:55:39 05/15/2005/15/2025 CBC W/DIF F HCT 35.7 % (based on docume nted legal sex) 34.0-4 5.0 Not Available [facility] (Lab) [address], [place], [address], 05/16/2025 09:55:39 05/15/2005/15/2025 CBC W/DIF F MCV 89.0 fL 80.0-9 9.0 Not Available [facility] (Lab) [address], [place], [address], 05/16/2025 09:55:39 05/15/2005/15/2025 CBC W/DIF F MCH 27.2 pg 27.0-3 4.0 Not Available [facility] (Lab) [address], [place], [address], 05/16/2025 09:55:39 05/15/2005/15/2025 CBC W/DIF F MCHC 30.5 g/dL 32.0-3 5.5 low Not Available [facility] (Lab) [address], [place], [address], 05/16/2025 09:55:39 05/15/2005/15/2025 CBC W/DIF F RDW 14.5 % 11.0-1 5.0 Not Available [facility] (Lab) [address], [place], [address], 05/16/2025 09:55:39 05/15/2005/15/2025 CBC W/DIF F plt 218 10'3/ uL 150-40 0 Not Available [facility] (Lab) [address], [place], [address], 05/16/2025 09:55:39 05/15/2005/15/2025 CBC W/DIF F MPV 11.1 fL 8.8-12 .1 Not Available [facility] (Lab) [address], [place], [address], 05/16/2025 09:55:39 05/15/2005/15/2025 CBC W/DIF F NRBC's 0.0 % 0.0 Not Available [facility] (Lab) [address], [place], [address], 05/16/2025 09:55:39 05/15/2005/15/2025 CBC W/DIF F absolute NRBCs 0.0 10'3/ uL no refere nce range establ ished Not Available [facility] (Lab) [address], [place], [address], 05/16/2025 09:55:39 05/15/2005/15/2025 CBC W/DIF F neutrophils 78.7 % 34.0-7 3.0 high Not Available [facility] (Lab) [address], [place], [address], 05/16/2025 09:55:39 05/15/2005/15/2025 CBC W/DIF F lymphocytes 15.0 % 15.0-5 0.0 Not Available [facility] (Lab) [address] [facility], [place], [address], 05/16/2025 09:55:39 05/15/2005/15/2025 CBC W/DIF F monocytes 4.9 % 1.0-15 .0 Not Available [facility] (Lab) [address] [facility], [place], [address], 05/16/2025 09:55:39 05/15/2005/15/2025 CBC W/DIF F eosinophils 0.6 % 0.0-8. 0 Not Available [facility] (Lab) [address] [facility], [place], [address], 05/16/2025 09:55:39 05/15/2005/15/2025 CBC W/DIF F basophils 0.3 % 0.0-2. 0 Not Available [facility] (Lab) [address] [facility], [place], [address], 05/16/2025 09:55:39 05/15/2005/15/2025 CBC W/DIF F immature granulocytes 0.5 % no define d refere nce range Immat ure Granu locyt es (IG) repre sents autom ated enume ratio n of Metam yeloc ytes, Myelo cytes and Promy elocy shlomo when IG is < 5%. Blast s are not inclu ded in IG and repor ruy separ ately if prese nt. Not Available [facility] (Lab) [address] [facility], [place], [address], 05/16/2025 09:55:39 05/15/2005/15/2025 CBC W/DIF F absolute neutrophils 11.4 10'3/ uL 1.5-8. 0 high Not Available [facility] (Lab) [address] [facility], [place], [address], 05/16/2025 09:55:39 05/15/2005/15/2025 CBC W/DIF F absolute lymphocytes 2.2 10'3/ uL 1.0-4. 0 Not Available [facility] (Lab) [address] [facility], [place], [address], 05/16/2025 09:55:39 05/15/2005/15/2025 CBC W/DIF F absolute monocytes 0.7 10'3/ uL 0.2-1. 0 Not Available [facility] (Lab) [address] [facility], [place], [address], 05/16/2025 09:55:39 05/15/2005/15/2025 CBC W/DIF F absolute eosinophils 0.1 10'3/ uL 0.0-0. 6 Not Available [facility] (Lab) [address] [facility], [place], [address], 05/16/2025 09:55:39 05/15/2005/15/2025 CBC W/DIF F absolute basophils 0.1 10'3/ uL 0.0-0. 3 Not Available [facility] (Lab) [address] [facility], [place], [address], 05/16/2025 09:55:39 05/15/2005/15/2025 CBC W/DIF F absolute [...] hyman book. nm.or g/gen derx Not Available [facility] (Lab) [address] , [place], [address], 05/16/2025 09:55:39 05/15/2005/15/2025 GTT - GESTA KHANH Islas, ACOG OB glucose, 1 hour screen 115 mg/dL 70-135 Not Available [facility] (Lab) [address] [facility], [place], [address], 05/16/2025 09:55:40 05/15/20 25 05/15/2025 URIC ACID uric acid 4.1 mg/dL 2.3-6. 6 Not Available [facility] (Lab) [address] [place], [address], 05/16/2025 09:55:40 05/15/20 25 05/15/2025 CMP(C OMPRE HENSI VE METAB OLIC PANEL ) sodium 138 mmol/ L 133-14 6 Not Available [facility] (Lab) [address] [facility], [place], [address], 05/16/2025 09:55:41 05/15/20 25 05/15/2025 CMP(C OMPRE HENSI VE METAB OLIC PANEL ) potassium 4.1 mmol/ L 3.5-5. 1 Not Available [facility] (Lab) [address] [facility], [place], [address], 05/16/2025 09:55:41 05/15/20 25 05/15/2025 CMP(C OMPRE HENSI VE METAB OLIC PANEL ) chloride 104 mmol/ L 98-107 Not Available [facility] (Lab) [address] [place], [address], 05/16/2025 09:55:41 05/15/20 25 05/15/2025 CMP(C OMPRE HENSI VE METAB OLIC PANEL ) carbon dioxide 24 mmol/ L 21-31 Not Available [facility] (Lab) [address] [place], [address], 05/16/2025 09:55:41 05/15/20 25 05/15/2025 CMP(C OMPRE HENSI VE METAB OLIC PANEL ) anion gap 10 mmol/ L 4-13 Not Available [facility] (Lab) [address] [place], [address], 05/16/2025 09:55:41 05/15/20 25 05/15/2025 CMP(C OMPRE HENSI VE METAB OLIC PANEL ) blood urea nitrogen 7 mg/dL 7-25 Not Available [facility] (Lab) [address] [facility], [place], [address], 05/16/2025 09:55:41 05/15/2005/15/2025 CMP(C OMPRE HENSI VE METAB OLIC PANEL ) creatinine 0.55 mg/dL 0.60-1 .30 low Not Available [facility] (Lab) [address] [facility], [place], [address], 05/16/2025 09:55:41 05/15/2005/15/2025 CMP(C OMPRE HENSI VE METAB OLIC PANEL ) egfrcr (CKD-epi 2020) >90 mL/mi n/1.7 3_m2 >=60 Not Available [facility] (Lab) [address] [facility], [place], [address], 05/16/2025 09:55:41 05/15/20 25 05/15/2025 CMP(C OMPRE HENSI VE METAB OLIC PANEL ) calcium 8.7 mg/dL 8.3-10 .5 Not Available [facility] (Lab) [address] [place], [address], 05/16/2025 09:55:41 05/15/20 25 05/15/2025 CMP(C OMPRE HENSI VE METAB OLIC PANEL ) glucose 115 mg/dL 70-100 high Not Available [facility] (Lab) [address] [place], [address], 05/16/2025 09:55:41 05/15/20 25 05/15/2025 CMP(C OMPRE HENSI VE METAB OLIC PANEL ) protein, total 5.7 g/dL 6.4-8. 3 low Not Available [facility] (Lab) [address] [facility], [place], [address], 05/16/2025 09:55:41 05/15/20 25 05/15/2025 CMP(C OMPRE HENSI VE METAB OLIC PANEL ) albumin 3.1 g/dL 3.5-5. 0 low Not Available [facility] (Lab) [address] [facility], [place], [address], 05/16/2025 09:55:41 05/15/2005/15/2025 CMP(C OMPRE HENSI VE METAB OLIC PANEL ) ALT 9 units /L 9-43 Not Available [facility] (Lab) [address] [facility], [place], [address], 05/16/2025 09:55:41 05/15/2005/15/2025 CMP(C OMPRE HENSI VE METAB OLIC PANEL ) alkaline phosphatase 114 units /L 34-104 high Not Available [facility] (Lab) [address] [facility], [place], [address], 05/16/2025 09:55:41 05/15/20 25 05/15/2025 CMP(C OMPRE HENSI VE METAB OLIC PANEL ) AST 11 units /L 13-39 low Not Available [facility] (Lab) [address] [facility], [place], [address], 05/16/2025 09:55:41 05/15/2005/15/2025 CMP(C OMPRE HENSI VE METAB OLIC PANEL ) bilirubin, total 0.3 mg/dL 0.2-1. 2 Not Available [facility] (Lab) [address] [facility], [place], [address], 05/16/2025 09:55:41 05/15/2005/15/2025 HIV 1/2 ANTIG EN/AN TIBOD Y, REFLE X CONFI RMATI ON HIV antigen/anti body Nonrea ctive nonrea ctive HIV-1 antig en and HIV-1 /HIV- 2 antib odies were not detec ruy. No labor atory evide nce of HIV infec tion. Not Available [facility] (Lab) [address] [facility], [place], [address], 05/16/2025 09:55:41 05/15/20 25 05/15/2025 PROTE IN/CR EATIN INE RATIO , URINE creatinine, urine 13.0 mg/dL R-No refer ence range estab lishe d for this assay Not Available [facility] (Lab) [address] [facility], [place], [address], 05/16/2025 09:55:42 05/15/20 25 05/15/2025 PROTE IN/CR EATIN INE RATIO , URINE protein, urine <4 mg/dL R-No refer ence range estab lishe d for this assay Not Available [facility] (Lab) [address] [facility], [place], [address], 05/16/2025 09:55:42 05/15/20 25 05/15/2025 PROTE IN/CR [...] fican t prote inuri a. Not Available [facility] (Lab) [address] [facility], [place], [address], 05/16/2025 09:55:42 05/15/20 25 05/15/2025 RPR SCREE N, REFLE X TITER /CONF IRMAT ION RPR qualitative Nonrea ctive nonrea ctive Not Available [facility] (Lab) [address] [facility], [place], [address], 05/16/2025 09:55:42 02/07/20 25 02/06/2025 US, obste tric, nucha l trans lucen cy No observ ation record ed. [email or web address] [facility] [address], [place], [address], 02/06/2025 17:26:10 02/07/20 25 02/06/2025 US, obste tric, follo w-up No observ ation record ed. Vivi [address], [place], [address], 02/07/2025 11:49:39 03/27/20 25 03/27/2025 US, obste tric, 2nd or 3rd trime ster No observ ation record ed. [email or web address] [address], [place], [address], 03/27/2025 16:50:03 03/27/20 25 03/27/2025 US, obste tric, 2nd or 3rd trime ster No observ ation record ed. [email or web address] [address], [place], [address], 04/01/2025 20:55:55 04/24/20 25 04/24/2025 US, obste tric, follo w-up No observ ation record ed. [email or web address] [address], [place], [address], 04/24/2025 18:50:20 04/24/20 25 04/24/2025 US, obste tric, follo w-up No observ ation record ed. [email or web address] [address], [place], [address], 05/02/2025 18:12:06 05/05/20 25 05/05/2025 US, obste tric, limit ed No observ ation record ed. [place] [id number], [place], [address], 05/08/2025 11:23:32 05/05/20 25 05/05/2025 US, obste tric, limit ed No observ ation record ed. [email or web address] [facility] [address], [place], [place], [id number], 05/08/2025 11:23:15 05/06/2005/05/2025 non-s tress test No observ ation record ed. [facility] [address], [place], [address], 05/14/2025 16:17:57 06/12/2006/12/2025 US, obste tric, follo w-up No observ ation record ed. [email or web address] [facility] [address], [place], [address], 06/12/2025 13:37:49 06/12/2006/12/2025 US, opal tric, follo w-up No observ ation record ed. [email or web address] Vivi [address], [place], [address], 06/14/2025 12:40:46 06/26/2006/26/2025 non-s tress test No observ ation record ed. [email or web address] [facility] [address], [place], [address], 06/26/2025 17:40:02 06/26/20 non-s tress test No observ ation record ed. [email or web address] [facility] [address], [place], [address], 06/26/2025 17:40:25 07/03/2007/03/2025 US, opal lemos bioph ysica l profi le + non-s tress test No observ ation record ed. [email or web address] [facility] [address], [place], [address], 07/03/2025 10:21:51 07/03/2007/03/2025 US, obste tric, bioph ysica l profi le + non-s tress test No observ ation record ed. [email or web address] Vivi [address], [place], [address], 07/03/2025 10:36:03 07/03/2007/03/2025 non-s tress test No observ ation record ed. [address], [place], [address], 07/03/2025 17:34:00 07/03/20 non-s tress test No observ ation record ed. [address], [place], [address], 07/03/2025 16:02:31 07/10/2007/10/2025 US, obste tric, follo w-up No observ ation record ed. [email or web address] Vivi [address], [place], [address], 07/10/2025 11:53:53 07/10/2007/10/2025 US, obste tric, follo w-up No observ ation record ed. [facility] [address], [place], [address], 07/10/2025 13:24:28 07/10/2007/10/2025 US, obste tric, bioph ysica l profi le + non-s tress test No observ ation record ed. [facility] [address], [place], [address], 07/10/2025 13:24:41 07/10/2007/10/2025 non-s tress test No observ ation record ed. [address], [place], [address], 07/10/2025 16:54:42 07/10/20 non-s tress test No observ ation record ed. [email or web address] [facility] [address], [place], [address], 07/10/2025 16:55:51 07/17/2007/17/2025 non-s tress test No observ ation record ed. FELICITY [facility] [address], [place], [address], 07/19/2025 11:50:49 07/17/20 non-s tress test No observ ation record ed. [facility] [address], [place], [address], 07/17/2025 10:56:47 07/17/2007/17/2025 US, obste tric, bioph ysica l profi le + non-s tress test No observ ation record ed. [email or web address] [facility] [address], [place], [address], 07/17/2025 13:24:17 07/17/2007/17/2025 US, obste tric, bioph ysica l profi le + non-s tress test No observ ation record ed. [email or web address] Vivi [address], [place], [address], 07/17/2025 11:37:56 07/24/2007/24/2025 US, obste tric, bioph ysica l profi le + non-s tress test No observ ation record ed. [email or web address] Vivi [address], [place], [address], 07/24/2025 11:16:54 07/24/20 25 07/24/2025 US, obste tric, bioph ysica l profi le + non-s tress test No observ ation record ed. [email or web address] [facility] [address], [place], [address], 07/24/2025 18:17:48 07/24/20 25 07/24/2025 non-s tress test No observ ation record ed. [facility] [address], [place], [address], 07/24/2025 18:19:09 07/24/20 25 non-s tress test No observ ation record ed. [address], [place], [address], 07/24/2025 16:00:08 Result Notes None recorded. Problems Name Problem SNOMED Code Status Onset Date Resolution Date Notes Provider Name and Address Organization Details Recorded Time Pregnanc y test negative 264411710 Completed 201409/02/2020 Pregnanc y examinat ion or test, negative result;R ecorded Elsewher e: No Locat ion: [facility] S ource: E[employer] Trustee Of Estate elena: N Practi ce ID: 0001 Grabiel lable Time: 03:15:00 PM Beverley lopez [facility] 0 17:56:19 Obesity 539097624 Completed 201409/03/2020 Obesity, unspecif ied;Prac bronson ID: 0001 Beverley lopez [facility] 0 14:20:47 Speciali zed medical examinat ion Completed 201409/02/2020 Routine gynecolo gical examinat ion;Prac bronson ID: 0001 Beverley lopez [facility] 0 17:57:40 Screenin g for malignan t neoplasm of cervix Completed 201409/02/2020 Pap Smear;Pr actice ID: 0001 Beverley lopez [facility] 0 17:56:38 Educatio n Completed 201409/02/2020 Family planning ;Recorde d Elsewher e: No Locat ion: [facility] S ource: EHR Trustee Of Estate elena: N Practi ce ID: 0001 Grabiel lable Time: 04:00:00 PM Beverley Sun jessica, [facility] 0 17:55:08 Female infertil ity 1577179 Completed 201410/17/2020 Infertil ity, female, of unspecif ied origin;P ractice ID: 0001 Beverley Sun jessica, [facility] 1 10:55:45 Body mass index 30+ - obesity 679336677 Completed 201510/17/2020 Body mass index (BMI) 39.0-39. 9, adult;Re corded Elsewher e: No [facility]: EHR Trustee Of Estate elena: N Practi ce ID: 0001 Grabiel lable Time: 11:00:00 AM Beverley Sun jessica [facility] 1 10:55:40 Syncope and collapse 588896757 Completed 201510/17/2020 Syncope and collapse ;Recorde d Elsewher e: No Locat ion: [facility] S ource: EHR Trustee Of Estate elena: N Practi ce ID: 0001 Grabiel lable Time: 10:30:00 AM Beverley Sun jessica [facility] 1 10:56:12 Gestatio n less than 9 weeks 753204448 Completed 201509/02/2020 Less than 8 weeks gestatio n of pregnanc y;Practi ce ID: 0001 Beverley Sun jessica, [facility] 0 17:55:27 Pregnanc y, childbir th and puerperi um finding Completed 201510/17/2020 Encntr for suprvsn of normal first preg, first trimeste r;Practi ce ID: 0001 Beverley lopez, [facility] 1 10:55:59 Gestatio n period, 12 weeks 74446307 Completed 201509/02/2020 12 weeks gestatio n of pregnanc y;Practi ce ID: 0001 Beverley lopez, [facility] 0 17:55:30 Pregnanc y, childbir th and puerperi um finding Completed 201509/02/2020 Encntr for suprvsn of normal first preg, second trimeste r;Practi ce ID: 0001 Beverley lopez, [facility] 0 17:56:27 Gestatio n period, 32 weeks 7403590 Completed 201509/02/2020 32 weeks gestatio n of pregnanc y;Practi ce ID: 0001 Beverley lopez, [facility] 0 17:55:35 Pregnanc y, childbir th and puerperi um finding Completed 201509/03/2020 Encounte r for supervis ion of normal first pregnanc y, third trimeste r;Record ed Elsewher e: No Locat ion: [facility] S ource: E[employer] Trustee [employer] Estate elena: N Practi ce ID: 0001 Grabiel lable Time: 05:30:00 PM Beverley lopez [facility] 0 14:20:36 Gestatio n period, 33 weeks 55111635 Completed 201509/02/2020 33 weeks gestatio n of pregnanc y;Record ed Elsewher e: No Locat ion: [facility] S ource: E[employer] Trustee [employer] Estate elena: N Practi ce ID: 0001 Grabiel lable Time: 09:00:00 AM Beverley lopez [facility] 0 17:55:39 Normal pregnanc y in multigra [place] [id number] 29507 Completed 201509/02/2020 Encounte r for suprvsn of normal pregnanc y, third trimeste r;Practi ce ID: 0001 Beverley lopez, [facility] 0 17:56:11 Gestatio n period, 34 weeks 34340204 Completed 201509/02/2020 34 weeks gestatio n of pregnanc y;Practi ce ID: 0001 Beverley lopez, [facility] 0 17:55:42 Pregnanc y-induce d hyperten tonya Completed 201503/27/2021 Gestatio nal htn w/o signific ant proteinu che, third trimeste r;Record ed Elsewher e: No Locat ion: [facility] S ource: E[employer] Trustee [employer] Estate elena: N Practi ce ID: 0001 Grabiel lable Time: 03:00:00 PM Beverley lopez, [facility] 1 16:36:34 Gestatio n period, 36 weeks 63698656 Completed 201509/02/2020 36 weeks gestatio n of pregnanc y;Practi ce ID: 0001 Beverley lopez, [facility] 0 17:55:48 Single live from singleto n pregnanc y 297808908 Completed 201509/03/2020 Single live ;Pr actice ID: 0001 Beverley lopez, [facility] 0 14:20:54 Gestatio n period, 37 weeks 84963011 Completed 201509/02/2020 37 weeks gestatio n of pregnanc y;Practi ce ID: 0001 Beverley lopez, [facility] 0 17:55:50 Pregnanc y-induce d hyperten tonya Completed 201509/02/2020 Gestatio nal htn w/o signific ant proteinu che, unsp trimeste r;Practi ce ID: 0001 Beverley lopez, [facility] 0 17:57:29 Hyperten sive disorder 94010729 Completed 201503/27/2021 Benign hyperten tonya;Rec orded Elsewher e: No Locat ion: [facility] S ource: E[employer] Trustee Of Estate elena: N Practi ce ID: 0001 Grabiel lable Time: 10:30:00 AM Beverley Corinne jessica, [facility] 5 19:18:30 Non-prot einuric hyperten tonya of pregnanc y 097501102 Completed 201510/17/2020 Gestatnl htn without signific ant protein, comp the puerp;Pr actice ID: 0001 Beverley Sun jessica, [facility] 1 10:56:02 Lochia finding Completed 201510/17/2020 Encounte r for routine postpart um follow-u p;Practi ce ID: 0001 Beverley Sun [facility] [place] [facility], [facility] [address] 10:55:[address] Concept Completed 201809/02/2020 Encntr for director of institutional sales exam (general ) (routine ) w/o abn findings ;Recorde d Elsewher e: No Locat ion: [facility] S ource: EHR Trustee Of Estate elena: N Practi ce ID: 0001 Grabiel lable Time: 10:30:00 AM Beverley Corinne jessica [facility] 0 17:56:45 Pregnanc y detectio n examinat ion Completed 201809/02/2020 Encounte r for pregnanc y test, result positive ;Practic e ID: 0001 Beverley Sun jessica [facility] 0 17:56:17 Uterine size for dates discrepa ncy Completed 201810/17/2020 Uterine size-malia e discrepa ncy, first trimeste r;Practi ce ID: 0001 Beverley Sun jessica, [facility] 1 10:56:17 Secondar y amenorrh ea 067051599 Completed 201810/17/2020 Secondar y amenorrh ea;Recor ded Elsewher e: No Locat ion: [facility] S ource: E[employer] Trustee [employer] Estate elena: N Practi ce ID: 0001 Grabiel lable Time: 10:30:00 AM Beverley Sun jessica, [facility] 1 10:56:05 Infectio n screenin g Completed 201809/02/2020 Encounte r for screenin g for oth infec/pa rastc diseases ;Recorde d Elsewher e: No Locat ion: [facility]: [facility]: N Practi ce ID: 0001 Grabiel lable Time: 10:30:00 AM Beverley Sun [facility] [place] [facility], [facility] 0 17:56:03 Syphilis test finding 514944601 Completed 201809/03/2020 Encntr screen for infectio ns w sexl mode of transmis s;Record ed Elsewher e: No Locat ion: [facility] S ource: E[employer] Trustee Of Estate elena: N Practi ce ID: 0001 Grabiel lable Time: 10:30:00 AM Beverley Sun jessica, [facility] 0 14:20:58 Finding of viabilit y of pregnanc y 127616315 Completed 201809/02/2020 Pregnanc y w inconclu sive viabilit y, unsp;Pra ctice ID: 0001 Beverley Sun jessica, [facility] 0 17:55:21 Finding of contents of cervix 018023291 Completed 201809/02/2020 Weeks of gestatio n of pregnanc y not specifie d;Practi ce ID: 0001 Beverley Sun jessica, [facility] 0 17:55:14 Threaten ed miscarri age 34947424 Completed 201810/17/2020 Threaten ed ;Recorde d Elsewher e: No Locat ion: [facility] S ource: [employer] Trustee [employer] Estate elena: N Practi ce ID: 0001 Grabiel lable Time: 12:30:00 PM Beverley lopez, [facility] 1 10:56:15 Gestatio n period, 8 weeks 84844601 Completed 201809/02/2020 8 weeks gestatio n of pregnanc y;Practi ce ID: 0001 Beverley Sun [facility] [place] [facility], [facility] 0 17:55:55 Rubella screenin g status 710550039 Completed 201809/02/2020 Encounte r for antenata l screenin g, unspecif ied;Benitez rded Elsewher e: No [facility]: EHR Trustee Of Estate elena: N Practi ce ID: 0001 Grabiel lable Time: 04:30:00 PM Beverley lopez, [facility] 0 17:56:34 Antenata l screenin g Completed 201809/02/2020 Encounte r for antenata l screenin g for nuchal transluc ency;Pra ctice ID: 0001 Beverley lopez, [facility] 0 17:57:11 Antenata l screenin g for malforma tion Completed 201809/02/2020 Encounte r for antenata l screenin g for malforma tions;Re corded Elsewher e: No Locat ion: [facility] S ource: E[employer] Trustee [employer] Estate elena: N Practi ce ID: 0001 Grabiel lable Time: 08:15:00 AM Beverley lopez, [facility] 0 17:57:13 Gestatio n period, 29 weeks [id number] Completed 201809/02/2020 29 weeks gestatio n of pregnanc y;Record ed Elsewher e: No Locat ion: Sally malik [facility] S ource: EHR Trustee Of Estate elena: N Mathieuti ce ID: 0001 Grabiel lable Time: 03:45:00 PM Beverley lopez, [facility] 0 17:55:32 Clinical finding Completed 201810/17/2020 Tachycar rishi, unspecif ied;Benitez rded Elsewher e: No Locat ion: Sally malik [facility] S ource: EHR Trustee Of Estate elena: N Practi ce ID: 0001 Grabiel lable Time: 11:15:00 AM Beverley Dos Santostz jessica, [facility] 1 10:55:44 Clinical finding Completed 201809/02/2020 Obesity, unspecif ied;Benitez rded Elsewher e: No [facility] S ource: EHR Trustee [employer] Estate elena: N Mathieuti ce ID: 0001 Grabiel lable Time: 03:00:00 PM Beverley Sun jessica, [facility] 0 17:55:24 Finding of body mass index 207291064 Completed 201809/02/2020 Body mass index (BMI) 40.0-44. 9, adult;Re corded Elsewher e: No [facility] S ource: EHR Trustee Of Estate elena: N Practi ce ID: 0001 Grabiel lable Time: 02:00:00 PM Beverley Dos Santostz jessica, [facility] 0 17:56:59 Gestatio n period, 35 weeks 96177138 Completed 201809/02/2020 35 weeks gestatio n of pregnanc y;Record ed Elsewher e: No Locat ion: [facility] S ource: E[employer] Trustee Of Estate elena: N Practi ce ID: 0001 Grabiel lable Time: 02:00:00 PM Beverley Sun jessica, [facility] 0 17:55:44 Severe obesity complica ting pregnanc y 7640119814 8977257 Completed 201810/17/2020 Obesity complica ting pregnanc y, third trimeste r;Record ed Elsewher e: No Locat ion: [facility] S ource: E[employer] Trustee [employer] Estate elena: N Practi ce ID: 0001 Grabiel lable Time: 03:00:00 PM Beverley lopez [facility] 1 10:56:10 Gestatio n period, 38 weeks 23982275 Completed 201809/02/2020 38 weeks gestatio n of pregnanc y;Record ed Elsewher e: No Locat ion: [facility] S ource: EHR Trustee Of Estate elena: N Practi ce ID: 0001 Grabiel lable Time: 11:00:00 AM Beverley lopez, [facility] 0 17:55:53 Hyperten tonya in the obstetri c context Completed 201810/17/2020 Pre-exis ting essentia l htn comp pregnanc y, third trimeste r;Practi ce ID: 0001 Beverley Sun [facility] [place] [facility], [facility] 1 10:55:52 Attentio n deficit hyperact ivity disorder 033133873 Active 2024 stopped taking medicati on when found out Beverley lopez [facility] 5 19:38:30 Mixed anxiety and depressi ve disorder 023331244 Active 2024 Beverley lopez [facility] 5 19:37:00 Hyperten sive disorder 97025015 Active 2024 Medina Whitaker CNM [address], [place], [address], [facility] 17:26:39 Headache 59423720 Active 2024 Beverley Sun [facility] [place] [facility], [facility] 19:37:14 Pregnanc y 78487011 Active [address] [facility] 19:36:35 Mixed anxiety and depressi ve disorder 674027769 Active 2024 Beverley Dos Santosmontserrat lopez, [facility] 19:37:00 Headache 68312417 Active 2024 Beverley Sun [facility] [place] [facility], [facility] 19:37:14 Past pregnanc y history of gestatio nal hyperten tonya 650052645 Active 2024 2016 pregnanc y start bASA x 2 daily Medina Whitaker CNM [address], [place], [address], [facility] 17:26:14 Attentio n deficit hyperact ivity disorder 101743599 Active 2024 stopped taking medicati on when found out Beverley Sun [facility] 19:38:30 Obesity 248921846 Active 2024 antenata l testing @ 34wks Sonya Batista [facility] 20:55:07 Hyperten tonya AND/OR vomiting complica ting pregnanc y childbir th AND/OR puerperi 745989447 Active 2024 Medina Wihtaker CNM [address], [place], [address], [facility] 5 15:51:32 Notes:Encounter for antenata l screening of mother Recorded Elsewhere: No Location: [facility] Source: EHR Chronic: N Practice ID: 0001 Billable Time: 10:30:00 AM Encounter for screening of mother Practice ID: 0001 Encounter for screening of mother Recorded Elsewhere: No Location: [facility] Source: EHR Chronic: N Practice ID: 0001 Billable Time: 10:30:00 AM Encounter for screening of mother Practice ID: 0001 Problem Notes None recorded. Procedures Surgical History Date Name Laterality Status Provider Name and Address Organization Details Recorded Time Date of Last Pap Smear completed [facility] 02/06/2025 08:37:03 1 extraction of wisdom tooth completed [facility] 02/06/2025 19:33:27 Imaging Results None [...] Prescrib camilo Elsewher e: No Locat ion: [facility] M odify By: [email or web address] z Encoun ter [...] Prescrib ed Elsewher e: No Locat ion: [facility] odify By: rocio solorzano DateTime : [...] Prescrib ed Elsewher e: No Locat ion: [facility] odify By: [email or web address] z Hiro ter DateTime [...] Prescrib ed Elsewher e: No Locat ion: [facility] odify By: belem haley DateTime : 07/05/20 [...] and Address Organization Details Last Updated DateTime 06/12/2025 167.64 cm 49.2 kg/m2 437901.67 g 124/86 mm[Hg] Jaqueline Maier [facility] 06/12/2025 12:17:18 Social History Question Answer Notes LastModified by Organizat ion Details LastModified Time Tobacco Smoking Status Never Smoker Beverley Sun [facility] 03/21/2020 13:16:23 Do You Have An Advance Directive? No Information n ot available 01/07/2025 If You Are , What Was Your Level Of Alcohol Consumption Prior To ? Occasional Information not available 10/17/2020 Are You Blind Or Do You Have Difficulty Seeing? No [email or web address] Information n ot available 03/27/2021 What Is Your Level Of Caffeine Consumption? Occasional [email or web address] Information not available 10/17/2020 In The 14 Days Before Symptom Onset, Have You Had Close Contact With A Laboratory-confirm ed COVID-19 While That Case Was Ill? No [email or web address] Information n ot available 03/27/2021 In The 14 Days Before Symptom Onset, Have You Had Close Contact With A Person Who Is Under Investigation For COVID-19 While That Person Was Ill? No [email or web address] Information not available 03/27/2021 Have You Been To An Area Known To Be High Risk For COVID-19? No Information not available 03/27/2021 Are You Deaf Or Do You Have Serious Difficulty Hearing? No [email or web address] Information not available 03/27/2021 What Type Of Diet Are You Following? REGULAR [email or web address] Information n ot available 03/27/2021 What Is The Highest Grade Or Level Of School You Have Completed Or The Highest Degree You Have Received? [id number] Information not available 01/07/2025 What Was The Date Of Your Most Recent Tobacco Screening? 02/06/2025 [email or web address] Information not available 02/06/2025 Have You Ever Been Counseled For Unhealthy Alcohol Use? No [email or web address] Information not available 10/17/2020 Do You Use Protection During Sex? No Information not available 01/07/2025 Do You Use Your Seat Belt Or Car Seat Routinely? Yes [email or web address] Information not available 03/27/2021 Do You Have Smoke And Carbon Monoxide Detectors In Your Home? Yes [email or web address] Information not available 03/27/2021 How Much Tobacco Do You Smoke? No [email or web address] Information not available 03/21/2020 Do You Use Sunscreen Routinely? Yes Information not available 03/27/2021 Has Tobacco Cessation Counseling Been Provided? No Information not available 10/17/2020 Have You Used IV Drugs? No Information not available 01/07/2025 Do You Have Difficulty Walking Or Climbing Stairs? No [email or web address] Information not available 02/06/2025 Sex: Unknown Functional Status Question Answer Note LastModified by Organizat ion Details LastModified Time Do you use any illicit or recreational drugs? No [email or web address] Information not available 10/17/2020 Do you or have you ever used any other forms of tobacco or nicotine? No [email or web address] Information not available 10/17/2020 What is your level of alcohol consumption? None [email or web address] Information not available 02/06/2025 Do you or have you ever used smokeless tobacco? Never used smokeless tobacco [email or web address] Information not available 03/21/2020 Are you able to walk independently without assistance or assistive devices? YESWOREST Information not available 03/27/2021 Are you able to care for yourself independently? Yes [email or web address] Information not available 02/06/2025 Do you have difficulty dressing, bathing, grooming, or toileting? No [email or web address] Information not available 02/06/2025 Do you or have you ever used e-cigarettes or vape? Never used electronic cigarettes [email or web address] Information not available 03/21/2020 What is your exercise level? Occasional [email or web address] Information not available 03/21/2020 Mental Status Question Answer Note LastModified by Organization D etails LastModified Time Do you feel stressed (tense, restless, nervous, or anxious, or unable to sleep at night)? [id number] [email or web address] Information not available 03/27/2021 Family History Relationship Description Onset Age of this Age Resolved Age Notes LastModified by Organization Details LastModified Time Mother Disorder of thyroid gland [email or web address] Not available 03/21 13:15:49 Father Diabetes mellitus [email or web address] Not available 03/21 13:16:06 Maternal Grandfather Diabetes mellitus Not available 03/21 13:16:06 Maternal Grandmother Malignant neoplasm of lung [email or web address] Not available 12/13 11:16:48 Medical History Condition Response Allergies (Food, seasonal, environmental ) Y Other N Drug/Latex Allergies/Reactions N Blood Transfusion N Breast Cancer N Lung Disease N Dermatologic Disorders N Defects or Inherited Disease N Breast [...] ICD10 Code Diagnosis IMO Codes Diagnosis Note [id number] Medina Whitaker CNM [facility] [address] [address] 05/15/2025 09:49:32 05/15/2025 10:47:27 Gestation period, 27 weeks 59547855 Z3A.27 6715351 [id number] Medina Whitaker CNM [facility] [address] [address] 05/29/2025 09:18:49 05/29/2025 09:51:39 Gestation period, 29 weeks 38429060 Z3A.29 [id number] Lobito Salinas MD [facility] [address] [address] 06/12/2025 11:17:33 06/12/2025 12:05:04 Large for gestation age fetus 505971970 [id number] Z3A.31 [id number] [id number] Medina Whitaker CNM [facility] [address] [address] 06/12/2025 11:18:32 06/12/2025 14:07:15 Gestation period, 31 weeks 46668272 Z3A.31 [id number] Health Concerns Section Related Observation LastModified by Organization Detai ls LastModified Time None Recorded Concern Status LastModified by Organization Details LastModified Time None Recorded Payers Encounter Date Sequence Insurance Name Policy Number Policy [employer] Covered Member ID [employer] Member ID Guarantor Name 06/12/[address] [facility] [address] [id number] Whit Rivers Notes Date Note Type Note Provider Name and Address Organization Details Recorded Time 06/12/2025 text/html Generic HPI TemplateReported by Patient Medina Whitaker CNM [address], [place], [address], [facility] 06/12/2025 14:01:10 OBGyn Episode Ob Episode Information Episode Created Date Number of Fetuses Patient Bloodtype Patient rh Status Prepregnancy Weight lbs Domestic Partner Domestic Partner Phone Father Name Dispatch Supervisor Status 02/07/20 25 1 O Positive [address] OPEN Fetus Data First Name Last Name Admitted to NICU Weight (g) Sex Living Outcome Pediatric Complications Fetus ID Race Codes Race Delivery Type [id number] Problems Problem Notes Problem Name Start Date End Date Resolution Snomed Code Not e Attention deficit hyperactivity disorder 02/06/2025 [id number] stopped taking medication when found out Past history of gestational hypertension 02/06/2025 [id number] 2016 pregnancys tart bASA x 2 daily Obesity 02/07/2025 [id number] testing @ 34wks Headache 02/06/2025 [id number] Mixed anxiety and depressive disorder 02/06/2025 [id number] Hypertension AND/OR vomiting complicating childbirth AND/OR puerperium 06/26/2025 [id number] Alfa Calculation Initial Alfa Date Initial Exam [...] Weight in lbs Pre/Post Dialysis Refused Weight 289.890390418532 BP Diastolic BP Location Tested BP Systolic [...] Weight in lbs Pre/Post Dialysis Refused Weight 294.124779079752 BP Diastolic BP Location Tested BP Systolic [...] Type Weight in lbs Pre/Post Dialysis Refused 297.059570680150 BP Diastolic BP Location Tested BP Systolic [...] Type Weight in lbs Pre/Post Dialysis Refused 302.665735056274 BP Diastolic BP Location Tested BP Systolic [...] Weight in lbs Pre/Post Dialysis Refused Weight 305.435801588639 BP Diastolic BP Location Tested BP Systolic [...] Weight in lbs Pre/Post Dialysis Refused Weight 306.850618463148 BP Diastolic BP Location Tested BP Systolic [...] Weight in lbs Pre/Post Dialysis Refused Weight 305.848715585204 BP Diastolic BP Location Tested BP Systolic [...] Weight in lbs Pre/Post Dialysis Refused Weight 307.634587944775 BP Diastolic BP Location Tested BP Systolic BP Type 90 140 Fetus Heart Rate Present Fetus Movement A Yes Comments discussed elevated bp start weekly bpp, denies any sxs, plan IOL jul 24, precautions and education f/u one week Flowsheet [...] Type Weight in lbs Pre/Post Dialysis Refused 308.385126257340 BP Diastolic BP Location Tested BP Systolic BP Type 81 L arm 132 sitting Fetus Heart Rate Present Fetus Movement A Yes Comments Flowsheet Date 07/03/2025 Bunn Score Blood Edema Fundus Height Fundus Units Glucose Ketones Leukocytes Nitrite Labor Signs Protein Cervic Dilation Cervic Effacement Cervic Station Type Weight in lbs Pre/Post Dialysis Refused 308.912750277623 BP Diastolic BP Location Tested BP Systolic [...] Weight in lbs Pre/Post Dialysis Refused Weight 310.701658503091 BP Diastolic BP Location Tested BP Systolic BP Type 85 L arm 128 sitting Fetus Heart Rate Present Fetus Movement A Yes Comments Flowsheet Date 07/10/2025 Bunn Score Blood Edema Fundus Height Fundus Units Glucose Ketones Leukocytes Nitrite Labor Signs Protein Cervic Dilation Cervic Effacement Cervic Station Type Weight in lbs Pre/Post Dialysis Refused 310.820287604362 BP Diastolic BP Location Tested BP Systolic [...] Type Weight in lbs Pre/Post Dialysis Refused 311.917093980106 BP Diastolic BP Location Tested BP Systolic [...] Weight in lbs Pre/Post Dialysis Refused Weight 312.887652629763 BP Diastolic BP Location Tested BP Systolic BP Type 84 L arm 131 sitting Fetus Heart Rate Present Fetus Movement A Yes Comments Flowsheet Date 07/24/2025 Bunn Score Blood Edema Fundus Height Fundus Units Glucose Ketones Leukocytes Nitrite Labor Signs Protein Cervic Dilation Cervic Effacement Cervic Station 1cm 50% -2 Type Weight in lbs Pre/Post Dialysis Refused Weight 312.891283030039 BP Diastolic BP Location Tested BP Systolic [...]
--- OUTSIDE RECORDS SUMMARY | 2025-07-26 05:56 | XMS_ITS | Continuity of Care Document ---
Author Organization [facility] Address [address] [place] [address] Care Team Providers Care Certified Control Systems Technician Name Role Phone HA MORTON Primary Care Provider Assessment Encounter Date Assessment Date Assessment LastModified by Organization Details LastModified Time 07/17/2025 07/17/2025 Patient is _36__weeks . Discussed plan. Not available 07/17/2025 11:28:45 Plan of Treatment Reminders Order Date Submit [...] Not Available [facility] [address], [place], [address], 02/14/2025 01:55:32 02/15/20 25 02/14/2025 [UNIT Y] ANEUP LOIDY NIPT 22Q11.2 microdeletio n LOW RISK <1 in 10,000 normal Not Available [facility] [address], [place], [address], 02/14/2025 01:55:32 02/15/20 25 02/14/2025 [UNIT Y] ANEUP LOIDY NIPT sex chromosome aneuploidy NOT DETECT ED normal Not Available [facility] [address], [place], [address], 02/14/2025 01:55:32 02/15/20 25 02/14/2025 [UNIT Y] ANEUP LOIDY NIPT monosomy X LOW RISK <1 in 10,000 normal Not Available [facility] [address], [place], [address], 02/14/2025 01:55:32 02/15/20 25 02/14/2025 [UNIT Y] ANEUP LOIDY NIPT trisomy 13 LOW RISK <1 in 10,000 normal Not Available [facility] [address], [place], [address], 02/14/2025 01:55:32 02/15/20 25 02/14/2025 [UNIT Y] ANEUP LOIDY NIPT trisomy 18 LOW RISK <1 in 10,000 normal Not Available [facility] [address], [place], [address], 02/14/2025 01:55:32 02/15/20 25 02/14/2025 [UNIT Y] ANEUP LOIDY NIPT trisomy 21 LOW RISK <1 in 10,000 normal Not Available [facility] [address], [place], [address], 02/14/2025 01:55:32 02/15/20 25 02/14/2025 [UNIT Y] ANEUP LOIDY NIPT sex MALE normal Not Available [facility] [address], [place], [address], 02/14/2025 01:55:32 02/15/20 25 02/14/2025 [UNIT Y] ANEUP LOIDY NIPT gestation SINGLE TON normal Not Available [facility] [address], [place], [address], 02/14/2025 01:55:32 02/15/20 25 02/14/2025 [UNIT Y] ANEUP LOIDY NIPT for detailed report, see pdf See PDF normal Not Available [facility] [address], [place], [address], 02/14/2025 01:55:32 02/18/20 25 02/17/2025 [UNIT Y] OTTO Islas sickle cell disease/beta -thalassemia /hemoglobino pathies carrier screen NEGATI VE normal Not Available [facility] [address], [place], [address], 02/17/2025 10:24:39 02/18/20 25 02/17/2025 [UNIT Y] OTTO Islas alpha-thalas semia carrier screen NEGATI VE normal Not Available [facility] [address], [place], [address], 02/17/2025 10:24:39 02/18/20 25 02/17/2025 [UNIT Y] OTTO LANGFORD Janel cystic fibrosis carrier screen NEGATI VE normal Not Available [facility] [address], [place], [address], 02/17/2025 10:24:39 02/18/20 25 02/17/2025 [UNIT Y] OTTO LANGFORD Janel spinal muscular atrophy carrier screen NEGATI VE 2 SMN1 copies , SNP not presen t normal Not Available [facility] [address], [place], [address], 02/17/2025 10:24:39 02/18/20 25 02/17/2025 [UNIT Y] OTTO LANGFODR Janel for detailed report, see pdf See PDF normal Not Available [facility] [address], [place], [address], 02/17/2025 10:24:39 02/07/20 25 02/06/2025 CBC W/DIF F WBC 12.0 10'3/ uL 3.5-10 .5 high Not Available [facility] (Lab) [address], [place], [address], 02/07/2025 13:12:55 02/07/20 25 02/06/2025 CBC W/DIF F RBC 4.52 10'6/ uL (based on docume nted legal sex) 3.80-5 .20 Not Available [facility] (Lab) [address] , [place], [address], 02/07/2025 13:12:55 02/07/20 25 02/06/2025 CBC W/DIF F HGB 12.4 g/dL (based on docume nted legal sex) 11.6-1 5.4 Not Available [facility] (Lab) [address], [place], [address], 02/07/2025 13:12:55 02/07/20 25 02/06/2025 CBC W/DIF F HCT 38.9 % (based on docume nted legal sex) 34.0-4 5.0 Not Available [facility] (Lab) [address], [place], [address], 02/07/2025 13:12:55 02/07/20 25 02/06/2025 CBC W/DIF F MCV 86.1 fL 80.0-9 9.0 Not Available [facility] (Lab) [address], [place], [address], 02/07/2025 13:12:55 02/07/20 25 02/06/2025 CBC W/DIF F MCH 27.4 pg 27.0-3 4.0 Not Available [facility] (Lab) [address], [place], [address], 02/07/2025 13:12:55 02/07/20 25 02/06/2025 CBC W/DIF F MCHC 31.9 g/dL 32.0-3 5.5 low Not Available [facility] (Lab) [address], [place], [address], 02/07/2025 13:12:55 02/07/20 25 02/06/2025 CBC W/DIF F RDW 12.9 % 11.0-1 5.0 Not Available [facility] (Lab) [address], [place], [address], 02/07/2025 13:12:55 02/07/20 25 02/06/2025 CBC W/DIF F plt 281 10'3/ uL 150-40 0 Not Available [facility] (Lab) [address], [place], [address], 02/07/2025 13:12:55 02/07/20 25 02/06/2025 CBC W/DIF F MPV 11.0 fL 8.8-12 .1 Not Available [facility] (Lab) [address], [place], [address], 02/07/2025 13:12:55 02/07/20 25 02/06/2025 CBC W/DIF F NRBC's 0.0 % 0.0 Not Available [facility] (Lab) [address], [place], [address], 02/07/2025 13:12:55 02/07/20 25 02/06/2025 CBC W/DIF F absolute NRBCs 0.0 10'3/ uL no refere nce range establ ished Not Available [facility] (Lab) [address], [place], [address], 02/07/2025 13:12:55 02/07/20 25 02/06/2025 CBC W/DIF F neutrophils 72.5 % 34.0-7 3.0 Not Available [facility] (Lab) [address], [place], [address], 02/07/2025 13:12:55 02/07/20 25 02/06/2025 CBC W/DIF F lymphocytes 20.4 % 15.0-5 0.0 Not Available [facility] (Lab) [address], [place], [address], 02/07/2025 13:12:55 02/07/20 25 02/06/2025 CBC W/DIF F monocytes 5.9 % 1.0-15 .0 Not Available [facility] (Lab) [address] [facility], [place], [address], 02/07/2025 13:12:55 02/07/20 25 02/06/2025 CBC W/DIF F eosinophils 0.6 % 0.0-8. 0 Not Available [facility] (Lab) [address] [place], [address], 02/07/2025 13:12:55 02/07/20 25 02/06/2025 CBC W/DIF F basophils 0.3 % 0.0-2. 0 Not Available [facility] (Lab) [address], [place], [address], 02/07/2025 13:12:55 02/07/20 25 02/06/2025 CBC W/DIF [...] separ ately if prese nt. Not Available [facility] (Lab) [address] [facility], [place], [address], 02/07/2025 13:12:55 02/07/20 25 02/06/2025 CBC W/DIF F absolute neutrophils 8.7 10'3/ uL 1.5-8. 0 high Not Available [facility] (Lab) [address] , [place], [address], 02/07/2025 13:12:55 02/07/20 25 02/06/2025 CBC W/DIF F absolute lymphocytes 2.4 10'3/ uL 1.0-4. 0 Not Available [facility] (Lab) [address] [facility], [place], [address], 02/07/2025 13:12:55 02/07/20 25 02/06/2025 CBC W/DIF F absolute monocytes 0.7 10'3/ uL 0.2-1. 0 Not Available [facility] (Lab) [address] [facility], [place], [address], 02/07/2025 13:12:55 02/07/20 25 02/06/2025 CBC W/DIF F absolute eosinophils 0.1 10'3/ uL 0.0-0. 6 Not Available [facility] (Lab) [address] [facility], [place], [address], 02/07/2025 13:12:55 02/07/20 25 02/06/2025 CBC W/DIF F absolute basophils 0.0 10'3/ uL 0.0-0. 3 Not Available [facility] (Lab) [address] [facility], [place], [address], 02/07/2025 13:12:55 02/07/2002/06/2025 CBC W/DIF F absolute [...] bhand book. nm.or g/gen derx Not Available [facility] (Lab) [address] [facility], [place], [address], 02/07/2025 13:12:55 02/07/2002/06/2025 HEPAT ITIS B SURFA CE ANTIG EN hepatitis B surface antigen Non-re active non-re active This assay was perfo rmed using [employer] ratio n reage nts and test kits. Value s obtai dexter with other assay metho ds or kits canno t be used inter lopez eably . Not Available [facility] (Lab) [address] [facility], [place], [address], 02/07/2025 13:12:55 02/07/2002/06/2025 HIV 1/2 ANTIG EN/AN TIBOD Y, REFLE X CONFI RMATI ON HIV antigen/anti body Nonrea ctive nonrea ctive HIV-1 antig en and HIV-1 /HIV- 2 antib odies were not detec ruy. No labor atory evide nce of HIV infec tion. Not Available [facility] (Lab) [address] [facility], [place], [address], 02/07/2025 13:12:56 02/07/2002/06/2025 HEPAT ITIS C ANTIB ANITA SCREE N, REFLE X TO CONFI RMATI ON hepatitis C antibody Non-re active non-re active Antib odies to HCV Not Detec ruy, does not exclu de the possi bilit y of expos ure to HCV. Not Available [facility] (Lab) [address] [facility], [place], [address], 02/07/2025 13:12:56 02/07/20 25 02/06/2025 RUBEL LA IGG ANTIB ANITA, QUANT rubella antibodies, IgG Reacti ve reacti ve Not Available [facility] (Lab) [address] [facility], [place], [address], 02/07/2025 13:12:56 02/07/20 25 02/06/2025 RUBEL LA IGG ANTIB ANITA, QUANT rubella antibodies, IgG quant 61.9 IU/mL >=10 Non-r eacti ve (Non- Immun e) <10 IU/mL React essie (Immu ne) > or = 10 IU/mL Not Available [facility] (Lab) [address] [facility], [place], [address], 02/07/2025 13:12:56 02/07/2002/06/2025 TYPE/ RH/SC REEN ABO/Rh type O POS Not Available [facility] (Lab) [address] [facility], [place], [address], 02/07/2025 13:12:57 02/07/2002/06/2025 TYPE/ RH/SC REEN antibody screen NEG Not Available [facility] (Lab) [address] [facility], [place], [address], 02/07/2025 13:12:57 02/07/2002/06/2025 TYPE/ RH/SC REEN exp date 2024 23:59 Not Available [facility] (Lab) [address] [facility], [place], [address], 02/07/2025 13:12:57 02/07/20 02/06/2025 RPR SCREE N, REFLE X TITER /CONF IRMAT ION RPR qualitative Nonrea ctive nonrea ctive Not Available [facility] (Lab) [address] [facility], [place], [address], 02/07/2025 13:12:57 02/07/20 25 02/06/2025 HEMOG LOBIN [...] >8.0% Actio n sugge sted Not Available [facility] (Lab) [address] [facility], [place], [address], 02/07/2025 13:12:57 02/07/2002/06/2025 CULTU RE: URINE result report SEE RESULT S BELOW Test: Cultu re: Urine Speci men Sourc e: Urine - Clean Catch Speci men Type: Urine Speci men Date: 2024 1737 Resul t Date: 2024 0700 Resul t Statu s: Final resul t Abnor mal: No Resul ting Lab: [facility] [address] [facility] [address] Tel: [phone] CULTU RE ----- ----- ----- --- Cultu re resul t (>=3 organ isms prese nt) indic ates possi ble conta minat ion. Repea t cultu re if sympt oms indic ate. Not Available [facility] (Lab) [address] [facility], [place], [address], 02/08/2025 08:03:32 02/07/20 25 02/06/2025 drug scree n, urine Amphetamines : negati ve Not Available [facility] [address], [place], [address], 02/06/2025 18:30:19 02/07/20 25 02/06/2025 drug scree n, urine Cannabinoids : negati ve Not Available [facility] [address], [place], [address], 02/06/2025 18:30:19 02/07/20 25 02/06/2025 drug scree n, urine Cocaine: negati ve Not Available [facility] [address], [place], [address], 02/06/2025 18:30:19 02/07/20 25 02/06/2025 drug scree n, urine Opiates: negati ve Not Available [facility] [address], [place], [address], 02/06/2025 18:30:19 02/07/20 25 02/06/2025 drug scree n, urine Phenocyclidi ne: negati ve Not Available [facility] [address], [place], [address], 02/06/2025 18:30:19 02/07/20 25 02/06/2025 drug scree n, urine Barbiturates : negati ve Not Available [facility] [address], [place], [address], 02/06/2025 18:30:19 02/07/20 25 02/06/2025 drug scree n, urine Benzodiazepi brayan: negati ve Not Available [facility] [address], [place], [address], 02/06/2025 18:30:19 02/07/20 25 02/06/2025 drug scree n, urine Ethanol: negati ve Not Available [facility] [address], [place], [address], 02/06/2025 18:30:19 02/07/2002/06/2025 drug scree n, urine Hallucinogen s: negati ve Not Available [facility] [address], [place], [address], 02/06/2025 18:30:19 02/07/20 25 02/06/2025 drug scree n, urine Inhalants: negati ve Not Available [facility] [address], [place], [address], 02/06/2025 18:30:19 02/07/20 25 02/06/2025 drug scree n, urine Anabolic Steroids: negati ve Not Available [facility] [address], [place], [address], 02/06/2025 18:30:19 02/07/20 25 02/06/2025 drug scree n, urine Other: negati ve Not Available [facility] [address], [place], [address], 02/06/2025 18:30:19 05/15/20 25 05/15/2025 HEMOG LOBIN (HGB) HGB 10.9 g/dL (based on docume nted legal sex) 11.6-1 5.4 low Not Available [facility] (Lab) [address] [place], [address], 05/16/2025 09:55:38 05/15/20 25 05/15/2025 HEMAT OCRIT (HCT) HCT 35.7 % (based on docume nted legal sex) 34.0-4 5.0 Not Available [facility] (Lab) [address] , [place], [address], 05/16/2025 09:55:39 05/15/20 25 05/15/2025 CBC W/DIF F WBC 14.6 10'3/ uL 3.5-10 .5 high Not Available [facility] (Lab) [address], [place], [address], 05/16/2025 09:55:39 05/15/2005/15/2025 CBC W/DIF F RBC 4.01 10'6/ uL (based on docume nted legal sex) 3.80-5 .20 Not Available [facility] (Lab) [address], [place], [address], 05/16/2025 09:55:39 05/15/2005/15/2025 CBC W/DIF F HGB 10.9 g/dL (based on docume nted legal sex) 11.6-1 5.4 low Not Available [facility] (Lab) [address], [place], [address], 05/16/2025 09:55:39 05/15/2005/15/2025 CBC W/DIF F HCT 35.7 % (based on docume nted legal sex) 34.0-4 5.0 Not Available [facility] (Lab) [address], [place], [address], 05/16/2025 09:55:39 05/15/2005/15/2025 CBC W/DIF F MCV 89.0 fL 80.0-9 9.0 Not Available [facility] (Lab) [address], [place], [address], 05/16/2025 09:55:39 05/15/2005/15/2025 CBC W/DIF F MCH 27.2 pg 27.0-3 4.0 Not Available [facility] (Lab) [address], [place], [address], 05/16/2025 09:55:39 05/15/2005/15/2025 CBC W/DIF F MCHC 30.5 g/dL 32.0-3 5.5 low Not Available [facility] (Lab) [address], [place], [address], 05/16/2025 09:55:39 05/15/2005/15/2025 CBC W/DIF F RDW 14.5 % 11.0-1 5.0 Not Available [facility] (Lab) [address], [place], [address], 05/16/2025 09:55:39 05/15/2005/15/2025 CBC W/DIF F plt 218 10'3/ uL 150-40 0 Not Available [facility] (Lab) [address], [place], [address], 05/16/2025 09:55:39 05/15/2005/15/2025 CBC W/DIF F MPV 11.1 fL 8.8-12 .1 Not Available [facility] (Lab) [address], [place], [address], 05/16/2025 09:55:39 05/15/2005/15/2025 CBC W/DIF F NRBC's 0.0 % 0.0 Not Available [facility] (Lab) [address], [place], [address], 05/16/2025 09:55:39 05/15/2005/15/2025 CBC W/DIF F absolute NRBCs 0.0 10'3/ uL no refere nce range establ ished Not Available [facility] (Lab) [address], [place], [address], 05/16/2025 09:55:39 05/15/2005/15/2025 CBC W/DIF F neutrophils 78.7 % 34.0-7 3.0 high Not Available [facility] (Lab) [address], [place], [address], 05/16/2025 09:55:39 05/15/2005/15/2025 CBC W/DIF F lymphocytes 15.0 % 15.0-5 0.0 Not Available [facility] (Lab) [address] [facility], [place], [address], 05/16/2025 09:55:39 05/15/2005/15/2025 CBC W/DIF F monocytes 4.9 % 1.0-15 .0 Not Available [facility] (Lab) [address] [facility], [place], [address], 05/16/2025 09:55:39 05/15/2005/15/2025 CBC W/DIF F eosinophils 0.6 % 0.0-8. 0 Not Available [facility] (Lab) [address] [facility], [place], [address], 05/16/2025 09:55:39 05/15/2005/15/2025 CBC W/DIF F basophils 0.3 % 0.0-2. 0 Not Available [facility] (Lab) [address] [facility], [place], [address], 05/16/2025 09:55:39 05/15/2005/15/2025 CBC W/DIF F immature granulocytes 0.5 % no define d refere nce range Immat ure Granu locyt es (IG) repre sents autom ated enume ratio n of Metam yeloc ytes, Myelo cytes and Promy elocy shlomo when IG is < 5%. Blast s are not inclu ded in IG and repor ruy separ ately if prese nt. Not Available [facility] (Lab) [address] [facility], [place], [address], 05/16/2025 09:55:39 05/15/2005/15/2025 CBC W/DIF F absolute neutrophils 11.4 10'3/ uL 1.5-8. 0 high Not Available [facility] (Lab) [address] [facility], [place], [address], 05/16/2025 09:55:39 05/15/2005/15/2025 CBC W/DIF F absolute lymphocytes 2.2 10'3/ uL 1.0-4. 0 Not Available [facility] (Lab) [address] [facility], [place], [address], 05/16/2025 09:55:39 05/15/2005/15/2025 CBC W/DIF F absolute monocytes 0.7 10'3/ uL 0.2-1. 0 Not Available [facility] (Lab) [address] [facility], [place], [address], 05/16/2025 09:55:39 05/15/2005/15/2025 CBC W/DIF F absolute eosinophils 0.1 10'3/ uL 0.0-0. 6 Not Available [facility] (Lab) [address] [facility], [place], [address], 05/16/2025 09:55:39 05/15/2005/15/2025 CBC W/DIF F absolute basophils 0.1 10'3/ uL 0.0-0. 3 Not Available [facility] (Lab) [address] [facility], [place], [address], 05/16/2025 09:55:39 05/15/2005/15/2025 CBC W/DIF F absolute [...] hyman book. nm.or g/gen derx Not Available [facility] (Lab) [address] , [place], [address], 05/16/2025 09:55:39 05/15/2005/15/2025 GTT - GESTA KHANH Islas, ACOG OB glucose, 1 hour screen 115 mg/dL 70-135 Not Available [facility] (Lab) [address] [facility], [place], [address], 05/16/2025 09:55:40 05/15/20 25 05/15/2025 URIC ACID uric acid 4.1 mg/dL 2.3-6. 6 Not Available [facility] (Lab) [address] [place], [address], 05/16/2025 09:55:40 05/15/20 25 05/15/2025 CMP(C OMPRE HENSI VE METAB OLIC PANEL ) sodium 138 mmol/ L 133-14 6 Not Available [facility] (Lab) [address] [facility], [place], [address], 05/16/2025 09:55:41 05/15/20 25 05/15/2025 CMP(C OMPRE HENSI VE METAB OLIC PANEL ) potassium 4.1 mmol/ L 3.5-5. 1 Not Available [facility] (Lab) [address] [facility], [place], [address], 05/16/2025 09:55:41 05/15/20 25 05/15/2025 CMP(C OMPRE HENSI VE METAB OLIC PANEL ) chloride 104 mmol/ L 98-107 Not Available [facility] (Lab) [address] [place], [address], 05/16/2025 09:55:41 05/15/20 25 05/15/2025 CMP(C OMPRE HENSI VE METAB OLIC PANEL ) carbon dioxide 24 mmol/ L 21-31 Not Available [facility] (Lab) [address] [place], [address], 05/16/2025 09:55:41 05/15/20 25 05/15/2025 CMP(C OMPRE HENSI VE METAB OLIC PANEL ) anion gap 10 mmol/ L 4-13 Not Available [facility] (Lab) [address] [place], [address], 05/16/2025 09:55:41 05/15/20 25 05/15/2025 CMP(C OMPRE HENSI VE METAB OLIC PANEL ) blood urea nitrogen 7 mg/dL 7-25 Not Available [facility] (Lab) [address] [facility], [place], [address], 05/16/2025 09:55:41 05/15/2005/15/2025 CMP(C OMPRE HENSI VE METAB OLIC PANEL ) creatinine 0.55 mg/dL 0.60-1 .30 low Not Available [facility] (Lab) [address] [facility], [place], [address], 05/16/2025 09:55:41 05/15/2005/15/2025 CMP(C OMPRE HENSI VE METAB OLIC PANEL ) egfrcr (CKD-epi 2020) >90 mL/mi n/1.7 3_m2 >=60 Not Available [facility] (Lab) [address] [facility], [place], [address], 05/16/2025 09:55:41 05/15/20 25 05/15/2025 CMP(C OMPRE HENSI VE METAB OLIC PANEL ) calcium 8.7 mg/dL 8.3-10 .5 Not Available [facility] (Lab) [address] [place], [address], 05/16/2025 09:55:41 05/15/20 25 05/15/2025 CMP(C OMPRE HENSI VE METAB OLIC PANEL ) glucose 115 mg/dL 70-100 high Not Available [facility] (Lab) [address] [place], [address], 05/16/2025 09:55:41 05/15/20 25 05/15/2025 CMP(C OMPRE HENSI VE METAB OLIC PANEL ) protein, total 5.7 g/dL 6.4-8. 3 low Not Available [facility] (Lab) [address] [facility], [place], [address], 05/16/2025 09:55:41 05/15/20 25 05/15/2025 CMP(C OMPRE HENSI VE METAB OLIC PANEL ) albumin 3.1 g/dL 3.5-5. 0 low Not Available [facility] (Lab) [address] [facility], [place], [address], 05/16/2025 09:55:41 05/15/2005/15/2025 CMP(C OMPRE HENSI VE METAB OLIC PANEL ) ALT 9 units /L 9-43 Not Available [facility] (Lab) [address] [facility], [place], [address], 05/16/2025 09:55:41 05/15/2005/15/2025 CMP(C OMPRE HENSI VE METAB OLIC PANEL ) alkaline phosphatase 114 units /L 34-104 high Not Available [facility] (Lab) [address] [facility], [place], [address], 05/16/2025 09:55:41 05/15/20 25 05/15/2025 CMP(C OMPRE HENSI VE METAB OLIC PANEL ) AST 11 units /L 13-39 low Not Available [facility] (Lab) [address] [facility], [place], [address], 05/16/2025 09:55:41 05/15/2005/15/2025 CMP(C OMPRE HENSI VE METAB OLIC PANEL ) bilirubin, total 0.3 mg/dL 0.2-1. 2 Not Available [facility] (Lab) [address] [facility], [place], [address], 05/16/2025 09:55:41 05/15/2005/15/2025 HIV 1/2 ANTIG EN/AN TIBOD Y, REFLE X CONFI RMATI ON HIV antigen/anti body Nonrea ctive nonrea ctive HIV-1 antig en and HIV-1 /HIV- 2 antib odies were not detec ruy. No labor atory evide nce of HIV infec tion. Not Available [facility] (Lab) [address] [facility], [place], [address], 05/16/2025 09:55:41 05/15/20 25 05/15/2025 PROTE IN/CR EATIN INE RATIO , URINE creatinine, urine 13.0 mg/dL R-No refer ence range estab lishe d for this assay Not Available [facility] (Lab) [address] [facility], [place], [address], 05/16/2025 09:55:42 05/15/20 25 05/15/2025 PROTE IN/CR EATIN INE RATIO , URINE protein, urine <4 mg/dL R-No refer ence range estab lishe d for this assay Not Available [facility] (Lab) [address] [facility], [place], [address], 05/16/2025 09:55:42 05/15/20 25 05/15/2025 PROTE IN/CR [...] fican t prote inuri a. Not Available [facility] (Lab) [address] [facility] [facility], [place], [address], 05/16/2025 09:55:42 05/15/20 25 05/15/2025 RPR SCREE N, REFLE X TITER /CONF IRMAT ION RPR qualitative Nonrea ctive nonrea ctive Not Available [facility] (Lab) [address] [facility], [place], [address], 05/16/2025 09:55:42 06/26/20 25 06/26/2025 PROTE IN/CR EATIN INE RATIO , URINE creatinine, urine 177.6 mg/dL R-No refer ence range estab lishe d for this assay Not Available [facility] (Lab) [address] [facility], [place], [address], 06/27/2025 04:29:05 06/26/20 25 06/26/2025 PROTE IN/CR EATIN INE RATIO , URINE protein, urine 15 mg/dL R-No refer ence range estab lishe d for this assay Not Available [facility] (Lab) [address] [facility], [place], [address], 06/27/2025 04:29:05 06/26/20 25 06/26/2025 PROTE IN/CR [...] fican t prote inuri a. Not Available [facility] (Lab) [address] [facility], [place], [address], 06/27/2025 04:29:05 06/26/20 25 06/26/2025 CBC W/DIF F WBC 13.4 10'3/ uL 3.5-10 .5 high Not Available [facility] (Lab) [address] [facility], [place], [address], 06/27/2025 04:29:05 06/26/20 25 06/26/2025 CBC W/DIF F RBC 4.22 10'6/ uL (based on docume nted legal sex) 3.80-5 .20 Not Available [facility] (Lab) [address] [facility], [place], [address], 06/27/2025 04:29:05 06/26/20 25 06/26/2025 CBC W/DIF F HGB 11.9 g/dL (based on docume nted legal sex) 11.6-1 5.4 Not Available [facility] (Lab) [address] [facility], [place], [address], 06/27/2025 04:29:05 06/26/20 25 06/26/2025 CBC W/DIF F HCT 37.5 % (based on docume nted legal sex) 34.0-4 5.0 Not Available [facility] (Lab) [address] [facility], [place], [address], 06/27/2025 04:29:05 06/26/20 25 06/26/2025 CBC W/DIF F MCV 88.9 fL 80.0-9 9.0 Not Available [facility] (Lab) [address] [facility], [place], [address], 06/27/2025 04:29:05 06/26/2006/26/2025 CBC W/DIF F MCH 28.2 pg 27.0-3 4.0 Not Available [facility] (Lab) [address] [facility], [place], [address], 06/27/2025 04:29:05 06/26/20 25 06/26/2025 CBC W/DIF F MCHC 31.7 g/dL 32.0-3 5.5 low Not Available [facility] (Lab) [address] [facility], [place], [address], 06/27/2025 04:29:05 06/26/20 25 06/26/2025 CBC W/DIF F RDW 14.6 % 11.0-1 5.0 Not Available [facility] (Lab) [address] [facility], [place], [address], 06/27/2025 04:29:05 06/26/2006/26/2025 CBC W/DIF F plt 224 10'3/ uL 150-40 0 Not Available [facility] (Lab) [address] [facility], [place], [address], 06/27/2025 04:29:05 06/26/20 25 06/26/2025 CBC W/DIF F MPV 12.2 fL 8.8-12 .1 high Not Available [facility] (Lab) [address] [facility], [place], [address], 06/27/2025 04:29:05 06/26/20 25 06/26/2025 CBC W/DIF F NRBC's 0.0 % 0.0 Not Available [facility] (Lab) [address] [facility], [place], [address], 06/27/2025 04:29:05 06/26/20 25 06/26/2025 CBC W/DIF F absolute NRBCs 0.0 10'3/ uL no refere nce range establ ished Not Available [facility] (Lab) [address] [facility], [place], [address], 06/27/2025 04:29:05 06/26/20 25 06/26/2025 CBC W/DIF F neutrophils 73.2 % 34.0-7 3.0 high Not Available [facility] (Lab) [address] [facility], [place], [address], 06/27/2025 04:29:05 06/26/20 25 06/26/2025 CBC W/DIF F lymphocytes 18.3 % 15.0-5 0.0 Not Available [facility] (Lab) [address] [facility], [place], [address], 06/27/2025 04:29:05 06/26/20 25 06/26/2025 CBC W/DIF F monocytes 7.5 % 1.0-15 .0 Not Available [facility] (Lab) [address] [facility], [place], [address], 06/27/2025 04:29:05 06/26/20 25 06/26/2025 CBC W/DIF F eosinophils 0.4 % 0.0-8. 0 Not Available [facility] (Lab) [address] [facility], [place], [address], 06/27/2025 04:29:05 06/26/20 25 06/26/2025 CBC W/DIF F basophils 0.2 % 0.0-2. 0 Not Available [facility] (Lab) [address], [place], [address], 06/27/2025 04:29:05 06/26/20 25 06/26/2025 CBC W/DIF [...] separ ately if prese nt. Not Available [facility] (Lab) [address], [place], [address], 06/27/2025 04:29:05 06/26/20 25 06/26/2025 CBC W/DIF F absolute neutrophils 9.8 10'3/ uL 1.5-8. 0 high Not Available [facility] (Lab) [address] , [place], [address], 06/27/2025 04:29:05 06/26/20 25 06/26/2025 CBC W/DIF F absolute lymphocytes 2.5 10'3/ uL 1.0-4. 0 Not Available [facility] (Lab) [address] , [place], [address], 06/27/2025 04:29:05 06/26/20 25 06/26/2025 CBC W/DIF F absolute monocytes 1.0 10'3/ uL 0.2-1. 0 Not Available [facility] (Lab) [address] , [place], [address], 06/27/2025 04:29:05 06/26/20 25 06/26/2025 CBC W/DIF F absolute eosinophils 0.1 10'3/ uL 0.0-0. 6 Not Available [facility] (Lab) [address], [place], [address], 06/27/2025 04:29:05 06/26/20 25 06/26/2025 CBC W/DIF F absolute basophils 0.0 10'3/ uL 0.0-0. 3 Not Available [facility] (Lab) [address] [facility], [place], [address], 06/27/2025 04:29:05 06/26/20 25 06/26/2025 CBC W/DIF F absolute immature granulocytes 0.1 10'3/ uL 0.00-0 .10 Refer ence range s for nonbi nary/ inter sex or unspe cifie d gende r patie nts have not been estab lishe d. [facility]as [facility] for range s estab lishe d for cisge nder patie nts and evalu ate in the clini patrice kristal xt of the indiv idual patie nt: https ://jose donna book. nm.or g/gen derx Not Available [facility] (Lab) [address] [facility], [place], [address], 06/27/2025 04:29:05 06/26/2006/26/2025 URIC ACID uric acid 4.8 mg/dL 2.3-6. 6 Not Available [facility] (Lab) [address] [place], [address], 06/27/2025 04:29:06 06/26/20 25 06/26/2025 CMP(C OMPRE HENSI VE METAB OLIC PANEL ) sodium 138 mmol/ L 133-14 6 Not Available [facility] (Lab) [address] [facility], [place], [address], 06/27/2025 04:29:06 06/26/20 25 06/26/2025 CMP(C OMPRE HENSI VE METAB OLIC PANEL ) potassium 4.0 mmol/ L 3.5-5. 1 Not Available [facility] (Lab) [address] [place], [address], 06/27/2025 04:29:06 06/26/20 25 06/26/2025 CMP(C OMPRE HENSI VE METAB OLIC PANEL ) chloride 103 mmol/ L 98-107 Not Available [facility] (Lab) [address] [facility], [place], [address], 06/27/2025 04:29:06 06/26/20 25 06/26/2025 CMP(C OMPRE HENSI VE METAB OLIC PANEL ) carbon dioxide 26 mmol/ L 21-31 Not Available [facility] (Lab) [address] [facility], [place], [address], 06/27/2025 04:29:06 06/26/2006/26/2025 CMP(C OMPRE HENSI VE METAB OLIC PANEL ) anion gap 9 mmol/ L 4-13 Not Available [facility] (Lab) [address] [facility], [place], [address], 06/27/2025 04:29:06 06/26/20 25 06/26/2025 CMP(C OMPRE HENSI VE METAB OLIC PANEL ) blood urea nitrogen 7 mg/dL 7-25 Not Available [facility] (Lab) [address] [facility], [place], [address], 06/27/2025 04:29:06 06/26/20 25 06/26/2025 CMP(C OMPRE HENSI VE METAB OLIC PANEL ) creatinine 0.66 mg/dL 0.60-1 .30 Not Available [facility] (Lab) [address] [facility], [place], [address], 06/27/2025 04:29:06 06/26/2006/26/2025 CMP(C OMPRE HENSI VE METAB OLIC PANEL ) egfrcr (CKD-epi 2020) >90 mL/mi n/1.7 3_m2 >=60 Not Available [facility] (Lab) [address] [facility], [place], [address], 06/27/2025 04:29:06 06/26/20 25 06/26/2025 CMP(C OMPRE HENSI VE METAB OLIC PANEL ) calcium 9.0 mg/dL 8.3-10 .5 Not Available [facility] (Lab) [address] [facility], [place], [address], 06/27/2025 04:29:06 06/26/20 25 06/26/2025 CMP(C OMPRE HENSI VE METAB OLIC PANEL ) glucose 74 mg/dL 70-100 Not Available [facility] (Lab) [address] [facility], [place], [address], 06/27/2025 04:29:06 06/26/2006/26/2025 CMP(C OMPRE HENSI VE METAB OLIC PANEL ) protein, total 6.1 g/dL 6.4-8. 3 low Not Available [facility] (Lab) [address] [place], [address], 06/27/2025 04:29:06 06/26/20 25 06/26/2025 CMP(C OMPRE HENSI VE METAB OLIC PANEL ) albumin 3.3 g/dL 3.5-5. 0 low Not Available [facility] (Lab) [address] [place], [address], 06/27/2025 04:29:06 06/26/20 25 06/26/2025 CMP(C OMPRE HENSI VE METAB OLIC PANEL ) ALT 36 units /L 9-43 Not Available [facility] (Lab) [address] [place], [address], 06/27/2025 04:29:06 06/26/20 25 06/26/2025 CMP(C OMPRE HENSI VE METAB OLIC PANEL ) alkaline phosphatase 131 units /L 34-104 high Not Available [facility] (Lab) [address] [place], [address], 06/27/2025 04:29:06 06/26/20 25 06/26/2025 CMP(C OMPRE HENSI VE METAB OLIC PANEL ) AST 20 units /L 13-39 Not Available [facility] (Lab) [address] [facility], [place], [address], 06/27/2025 04:29:06 06/26/20 25 06/26/2025 CMP(C OMPRE HENSI VE METAB OLIC PANEL ) bilirubin, total 0.3 mg/dL 0.2-1. 2 Not Available [facility] (Lab) [address] [facility], [place], [address], 06/27/2025 04:29:06 07/10/20 25 07/10/2025 CULTU RE: [...] Resul ting Lab: [facility] [address] [facility] [address] Tel: CULTU RE ----- ----- ----- --- No Group B strep isola ruy at 2 days (bailee ctive broth enhan cemen t) Not Available [facility] (Lab) [address] [facility], [place], [address], 07/13/2025 15:08:33 02/07/20 25 02/06/2025 US, opal tric, nucha l trans lucen cy No observ ation record ed. [email or web address] [place] [address], [place], [address], 02/06/2025 17:26:10 02/07/20 25 02/06/2025 US, elíase tric, follo w-up No observ ation record ed. [email or web address] [address], [place], [address], 02/07/2025 11:49:39 03/27/20 25 03/27/2025 US, obste tric, 2nd or 3rd trime ster No observ ation record ed. [email or web address] [place] [address], [place], [address], 03/27/2025 16:50:03 03/27/20 25 03/27/2025 US, obste tric, 2nd or 3rd trime ster No observ ation record ed. Vivi [address], [place], [address], 04/01/2025 20:55:55 04/24/20 25 04/24/2025 US, obste tric, follo w-up No observ ation record ed. [email or web address] [place] [address], [place], [address], 04/24/2025 18:50:20 04/24/20 25 04/24/2025 US, obste tric, follo w-up No observ ation record ed. [email or web address] [address], [place], [address], 05/02/2025 18:12:06 05/05/20 25 05/05/2025 US, obste tric, limit ed No observ ation record ed. [address] [facility], [place], [address], 05/08/2025 11:23:32 05/05/20 25 05/05/2025 US, obste tric, limit ed No observ ation record ed. [address], [place], [address], 05/08/2025 11:23:15 05/06/20 25 05/05/2025 non-s tress test No observ ation record ed. [place] [address], [place], [address], 05/14/2025 16:17:57 06/12/2006/12/2025 US, obste tric, follo w-up No observ ation record ed. [email or web address] [place] [address], [place], [address], 06/12/2025 13:37:49 06/12/2006/12/2025 US, obste tric, follo w-up No observ ation record ed. [email or web address] [address], [place], [address], 06/14/2025 12:40:46 06/26/2006/26/2025 non-s tress test No observ ation record ed. [place] [address], [place], [address], 06/26/2025 17:40:02 06/26/20 non-s tress test No observ ation record ed. [place] [address], [place], [address], 06/26/2025 17:40:25 07/03/20 25 07/03/2025 US, opal tric, bioph ysica l profi le + non-s tress test No observ ation record ed. [email or web address] [place] [address], [place], [address], 07/03/2025 10:21:51 07/03/2007/03/2025 US, obste tric, bioph ysica l profi le + non-s tress test No observ ation record ed. [email or web address] [address], [place], [address], 07/03/2025 10:36:03 07/03/2007/03/2025 non-s tress test No observ ation record ed. [email or web address] [place] [address], [place], [address], 07/03/2025 17:34:00 07/03/20 non-s tress test No observ ation record ed. [address], [place], [address], 07/03/2025 16:02:31 07/10/2007/10/2025 US, obste tric, follo w-up No observ ation record ed. [email or web address] [address], [place], [address], 07/10/2025 11:53:53 07/10/2007/10/2025 US, obste tric, follo w-up No observ ation record ed. [facility] [address], [place], [address], 07/10/2025 13:24:28 07/10/2007/10/2025 US, obste tric, bioph ysica l profi le + non-s tress test No observ ation record ed. [facility] [address], [place], [address], 07/10/2025 13:24:41 07/10/2007/10/2025 non-s tress test No observ ation record ed. [address], [place], [address], 07/10/2025 16:54:42 07/10/20 non-s tress test No observ ation record ed. [address], [place], [address], 07/10/2025 16:55:51 07/17/2007/17/2025 non-s tress test No observ ation record ed. FELICITY [place] [address], [place], [address], 07/19/2025 11:50:49 07/17/20 non-s tress test No observ ation record ed. [place] [address], [place], [address], 07/17/2025 10:56:47 07/17/2007/17/2025 US, obste tric, bioph ysica l profi le + non-s tress test No observ ation record ed. [email or web address] [place] [address], [place], [address], 07/17/2025 13:24:17 07/17/2007/17/2025 US, obste tric, bioph ysica l profi le + non-s tress test No observ ation record ed. [email or web address] [address], [place], [address], 07/17/2025 11:37:56 07/24/2007/24/2025 US, obste tric, bioph ysica l profi le + non-s tress test No observ ation record ed. [email or web address] [address], [place], [address], 07/24/2025 11:16:54 07/24/2007/24/2025 US, obste tric, bioph ysica l profi le + non-s tress test No observ ation record ed. bertha [place] [address], [place], [address], 07/24/2025 18:17:48 07/24/2007/24/2025 non-s tress test No observ ation record ed. bertha [place] [address], [place], [address], 07/24/2025 18:19:09 07/24/20 25 non-s tress test No observ ation record ed. [email or web address] [place] [address], [place], [address], 07/24/2025 16:00:08 Result Notes None recorded. Problems Name Problem SNOMED Code Status Onset Date Resolution Date Notes Provider Name and Address Organization Details Recorded Time Pregnanc y test negative [id number] Completed 201409/02/2020 Pregnanc y examinat ion or test, negative result;R ecorded Elsewher e: No Locat ion: [facility] S ource: EHR [employer] Equipment Sales Engineer elena: N Practi ce ID: 0001 Grabiel lable Time: 03:15:00 PM Beverley lopez, [facility] 0 17:56:19 Obesity [id number] Completed 201409/03/2020 Obesity, unspecif ied;Prac bronson ID: 0001 Beverley [place], [facility] 0 14:20:47 Speciali zed medical examinat ion Completed 201409/02/2020 Routine gynecolo gical examinat ion;Prac bronson ID: 0001 Beverley lopez, [facility] 0 17:57:40 Screenin g for malignan t neoplasm of cervix Completed 201409/02/2020 Pap Smear;Pr actice ID: 0001 Beverley lopez, [facility] 0 17:56:38 Educatio n Completed 201409/02/2020 Family planning ;Recorde d Elsewher e: No Locat ion: [facility] S ource: EHR [employer] Sales Engineer elena: N Practi ce ID: 0001 Grabiel lable Time: 04:00:00 PM Beverley [place], [facility] 0 17:55:08 Female rosa m [place] [id number] Completed 201410/17/2020 Rosa M [place], female, of unspecif ied origin;P wandytice ID: 0001 Beverley lopez, [facility] 1 10:55:45 Body mass index 30+ - obesity [id number] Completed 201510/17/2020 Body mass index (BMI) 39.0-39. 9, adult;Re corded Elsewher e: No [facility] E[facility] [employer] Equipment Sales Engineer elena: N Practi ce ID: 0001 Grabiel lable Time: 11:00:00 AM Beverley lopez [facility] 1 10:55:40 Syncope and collapse [id number] Completed 201510/17/2020 Syncope and collapse ;Recorde d Elsewher e: No Locat ion: [facility] S ource: EHR [employer] Equipment Sales Engineer elena: N Practi ce ID: 0001 Grabiel lable Time: 10:30:00 AM Beverley lopez [facility] 1 10:56:12 Gestatio n less than 9 weeks [id number] Completed 201509/02/2020 Less than 8 weeks gestatio n of pregnanc y;Practi ce ID: 0001 Beverley lopez [facility] 0 17:55:27 Pregnanc y, childbir th and puerperi um finding Completed 201510/17/2020 Encntr for suprvsn of normal first preg, first trimeste r;Practi ce ID: 0001 Beverley lopez [facility] 1 10:55:59 Gestatio n period, 12 weeks [id number] Completed 201509/02/2020 12 weeks gestatio n of pregnanc y;Practi ce ID: 0001 Beverley lopez [facility] 0 17:55:30 Pregnanc y, childbir th and puerperi um finding Completed 201509/02/2020 Encntr for suprvsn of normal first preg, second trimeste r;Practi ce ID: 0001 Beverley lopez, [facility] 0 17:56:27 Gestatio n period, 32 weeks [id number] Completed 201509/02/2020 32 weeks gestatio n of pregnanc y;Practi ce ID: 0001 Beverley Sun jessica, [facility] 0 17:55:35 Pregnanc y, childbir th and puerperi um finding Completed 201509/03/2020 Encounte r for supervis ion of normal first pregnanc y, third trimeste r;Record ed Elsewher e: No Locat ion: [facility] S ource: EHR Agricultural Equipment Sales Engineer elena: N Practi ce ID: 0001 Grabiel lable Time: 05:30:00 PM Beverley Sun jessica, [facility] 0 14:20:36 Gestatio n period, 33 weeks [id number] Completed 201509/02/2020 33 weeks gestatio n of pregnanc y;Record ed Elsewher e: No Locat ion: [facility] S ource: EHR [employer] Equipment Sales Engineer elena: N Practi ce ID: 0001 Grabiel lable Time: 09:00:00 AM Beverley Corinne jessica, [facility] 0 17:55:39 Normal pregnanc y in multigra geneva [id number] Completed 201509/02/2020 Encounte r for suprvsn of normal pregnanc y, third trimeste r;Practi ce ID: 0001 Beverley Sun jessica, [facility] 0 17:56:11 Gestatio n period, 34 weeks [id number] Completed 201509/02/2020 34 weeks gestatio n of pregnanc y;Practi ce ID: 0001 Beverley lopez, [facility] 0 17:55:42 Pregnanc y-induce d hyperten tonya Completed 201503/27/2021 Gestatio nal htn w/o signific ant proteinu che, third trimeste r;Record ed Elsewher e: No Locat ion: Sally malik [facility] S ource: EHR [employer] Equipment Sales Engineer elena: N Practi ce ID: 0001 Grabiel lable Time: 03:00:00 PM Beverley lopez, [facility] 1 16:36:34 Gestatio n period, 36 weeks [id number] Completed 201509/02/2020 36 weeks gestatio n of pregnanc y;Practi ce ID: 0001 Beverley lopez, [facility] 0 17:55:48 Single live from singleto n pregnanc y [id number] Completed 201509/03/2020 Single live ;Pr actice ID: 0001 Beverley Corinne lopez, [facility] 0 14:20:54 Gestatio n period, 37 weeks [id number] Completed 201509/02/2020 37 weeks gestatio n of pregnanc y;Practi ce ID: 0001 Beverley lopez, [facility] 0 17:55:50 Pregnanc y-induce d hyperten tonya Completed 201509/02/2020 Gestatio nal htn w/o signific ant proteinu che, unsp trimeste r;Practi ce ID: 0001 Beverley lopez, [facility] 0 17:57:29 Hyperten sive disorder [id number] Completed 201503/27/2021 Benign hyperten tonya;Rec orded Elsewher e: No [facility] S ource: EHR Agricultural Equipment Sales Engineer elena: N Practi ce ID: 0001 Grabiel lable Time: 10:30:00 AM Beverley Corinne jessica [facility] 5 19:18:30 Non-prot einuric hyperten tonya of pregnanc y [id number] Completed 201510/17/2020 Gestatnl htn without signific ant protein, comp the puerp;Pr actice ID: 0001 Beverley Sun jessica, [facility] 1 10:56:02 Lochia finding Completed 201510/17/2020 Encounte r for routine postpart um follow-u p;Practi ce ID: 0001 Beverley Sun jessica, [facility] 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 0 17:56:45 Pregnanc y detectio n examinat ion Completed 201809/02/2020 Encounte r for pregnanc y test, result positive ;Practic e ID: 0001 Beverley Sun jessica, [facility] 0 17:56:17 Uterine size for dates discrepa ncy Completed 201810/17/2020 Uterine size-malia e discrepa ncy, first trimeste r;Practi ce ID: 0001 Beverley lopez, [facility] 1 10:56:17 Secondar y amenorrh ea [id number] Completed 201810/17/2020 Secondar y amenorrh ea;Recor ded Elsewher e: No Locat ion: Sally malik [facility] S ource: EHR [employer] Equipment Sales Engineer elena: N Practi ce ID: 0001 Grabiel lable Time: 10:30:00 AM Beverley Corinne jessica, [facility] 1 10:56:05 Infectio n screenin g Completed 201809/02/2020 Encounte r for screenin g for oth infec/pa rastc diseases ;Recorde d Elsewher e: No Locat ion: [facility] S ource: EHR [employer] Equipment Sales Engineer elena: N Practi ce ID: 0001 Rgabiel lable Time: 10:30:00 AM Beverley [place], [facility] 0 17:56:03 Syphilis test finding [id number] Completed 201809/03/2020 Encntr screen for infectio ns w sexl mode of transmis s;Record ed Elsewher e: No Locat ion: [facility] S ource: EHR Agricultural Equipment Sales Engineer elena: N Practi ce ID: 0001 Grabiel lable Time: 10:30:00 AM Beverley lopez, [facility] 0 14:20:58 Finding of viabilit y of pregnanc y [id number] Completed 201809/02/2020 Pregnanc y w inconclu sive viabilit y, unsp;Pra ctice ID: 0001 Beverley [place], [facility] 0 17:55:21 Finding of contents of cervix [id number] Completed 201809/02/2020 Weeks of gestatio n of pregnanc y not specifie d;Practi ce ID: 0001 Beverley [place], [facility] 0 17:55:14 Threaten ed miscarri age [id number] Completed 201810/17/2020 Threaten ed ;Recorde d Elsewher e: No Locat ion: [facility] S ource: EHR Agricultural Equipment Sales Engineer elena: N Practi ce ID: 0001 Grabiel lable Time: 12:30:00 PM Beverley [place], [facility] 1 10:56:15 Gestatio n period, 8 weeks [id number] Completed 201809/02/2020 8 weeks gestatio n of pregnanc y;Practi ce ID: 0001 Beverley lopez, [facility] 0 17:55:55 Rubella screenin g status [id number] Completed 201809/02/2020 Encounte r for antenata l screenin g, unspecif ied;Benitez rded Elsewher e: No Locat ion: Sally [facility] S ource: EHR Agricultural Equipment Sales Engineer elena: N Practi ce ID: 0001 Grabiel lable Time: 04:30:00 PM Beverley lopez, [facility] 0 17:56:34 Antenata l screenin g Completed 201809/02/2020 Encounte r for antenata l screenin g for nuchal transluc ency;Pra ctice ID: [id number] Beverley lopez, [facility] 0 17:57:11 Antenata l screenin g for malforma tion Completed 201809/02/2020 Encounte r for antenata l screenin g for malforma tions;Re corded Elsewher e: No [facility] S ource: EHR Agricultural Equipment Sales Engineer elena: N Practi ce ID: [id number] Grabiel lable Time: 08:15:00 AM Beverley lopez, [facility] 0 17:57:13 Gestatio n period, 29 weeks [id number] Completed 201809/02/2020 29 weeks gestatio n of pregnanc y;Record ed Elsewher e: No Locat ion: [facility] S ource: EHR Agricultural Equipment Sales Engineer elena: N Practi ce ID: [id number] Grabiel lable Time: 03:45:00 PM Beverley lopez [facility] 0 17:55:32 Clinical finding Completed 201810/17/2020 Tachycar rishi, unspecif ied;Benitez rded Elsewher e: No Locat ion: [facility] S ource: EHR Agricultural Equipment Sales Engineer elena: N Mathieuti ce ID: [id number] Grabiel lable Time: 11:15:00 AM Beverley lopez, [facility] 1 10:55:44 Clinical finding Completed 201809/02/2020 Obesity, unspecif ied;Benitez rded Elsewher e: No Locat ion: Liviabhaveshmario alberto malik [facility] S ource: EHR Agricultural Equipment Sales Engineer elena: N Practi ce ID: [id number] Grabiel lable Time: 03:00:00 PM Beverley Sun jessica, [facility] 0 17:55:24 Finding of body mass index 353111336 Completed 201809/02/2020 Body mass index (BMI) 40.0-44. 9, adult;Re corded Elsewher e: No Locat ion: Liviabhaveshmario alberto malik [facility] S ource: EHR Agricultural Equipment Sales Engineer elena: N Mathieuti ce ID: 0001 Grabiel lable Time: 02:00:00 PM Beverley Sun jessica, [facility] 0 17:56:59 Gestatio n period, 35 weeks 46400881 Completed 201809/02/2020 35 weeks gestatio n of pregnanc y;Record ed Elsewher e: No Locat ion: Sally malik [facility] S ource: EHR Agricultural Equipment Sales Engineer elena: N Practi ce ID: 0001 Grabiel lable Time: 02:00:00 PM Beverley Sun jessica, [facility] 0 17:55:44 Severe obesity complica ting pregnanc y [id number] Completed 201810/17/2020 Obesity complica ting pregnanc y, third trimeste r;Record ed Elsewher e: No Locat ion: Liviaella helena [facility] S ource: EHR Agricultural Equipment Sales Engineer elena: N Practi ce ID: [id number] Grabiel lable Time: 03:00:00 PM Beverley Sun jessica, [facility] 10:56:10 Gestatio n period, 38 weeks [id number] Completed 201809/02/2020 38 weeks gestatio n of pregnanc y;Record ed Elsewher e: No Locat ion: Sally malik [facility] S ource: EHR Agricultural Equipment Sales Engineer elena: N Practi ce ID: [id number] Grabiel lable Time: 11:00:00 AM Beverley lopez, [facility] 0 17:55:53 Hyperten tonya in the obstetri c context Completed 201810/17/2020 Pre-exis ting essentia l htn comp pregnanc y, third trimeste r;Practi ce ID: 0001 Beverley lopez, [facility] 10:55:52 Attentio n deficit hyperact ivity disorder 016218937 Active 2024 stopped taking medicati on when found out Beverley lopez [facility] 19:38:30 Mixed anxiety and depressi ve disorder 828923287 Active 2024 Beverley lopez [facility] 19:37:00 Hyperten sive disorder 37150335 Active 2024 Medina Whitaker, JENNIFER [address], [place], [address], , P.C[facility] 17:26:39 Headache 29061569 Active 2024 Beverley lopez, [facility] 19:37:14 Pregnanc y 48002740 Active 2024 Beverley lopez [facility] 19:36:35 Mixed anxiety and depressi ve disorder 889937182 Active 2024 Beverley lopez, [facility] 19:37:00 Headache 42245242 Active 2024 Beverley lopez [facility] 19:37:14 Past pregnanc y history of gestatio nal hyperten tonya 807112802 Active 2024 2016 pregnanc y start bASA x 2 daily Medina Whitaker CNM [address], [place], [address], , P.C. 17:26:14 Attentio n deficit hyperact ivity disorder 907493969 Active 2024 stopped taking medicati on when found out Beverley lopez, [facility] 19:38:30 Obesity 691439055 Active 2024 antenata l testing @ [facility] 20:55:07 Hyperten tonya AND/OR vomiting complica ting pregnanc y childbir th AND/OR puerperi um 442129322 Active 2024 Medina Whitaker CNM [address], [place], [address], , P.C[facility] 5 15:51:32 Notes:Encounter for antenata l screening of mother Recorded Elsewhere: No Location: [facility] Source: EHR Chronic: N Practice ID: [id number] Billable Time: 10:30:00 AM Encounter for screening of mother Practice ID: [id number] Encounter for screening of mother Recorded Elsewhere: No Location: [facility] Source: EHR Chronic: N Practice ID: [id number] Billable Time: 10:30:00 AM Encounter for screening of mother Practice ID: 0001 Problem Notes None recorded. Procedures Surgical History Date Name Laterality Status Provider Name and Address Organization Details Recorded Time Date of Last Pap Smear completed Beverley Sun [facility] 02/06/2025 08:37:03 1 extraction of wisdom tooth completed Beverley Sun [facility] 02/06/2025 19:33:27 Imaging Results None recorded. [...] Prescrib ed Elsewher e: No Locat ion: [facility] odify By: [email or web address] Bosch ter DateTime : 08/25/20 08:06:19 AM [...] Prescrib ed Elsewher e: No Locat ion: [facility] odify By: [email or web address] Bosch ter DateTime [...] Prescrib camilo Fritz e: No Locat ion: [facility] M odify By: [email or web address] z Encoun ter [...] 2 times every day 07/23 completed Prescrib camilo Fritz e: No Locat ion: Sally malik [facility] [place] odify By: [email or web address] Encounte r [...] and Address Organization Details Last Updated DateTime 07/17/2025 316419.43056 g 130/78 mm[Hg] Barbie Coronado [facility] 07/17/2025 10:53:15 Social History Question Answer Notes LastModified by Organizat ion Details LastModified Time Tobacco Smoking Status Never Smoker Beverley lopez, [facility] 03/21/2020 13:16:23 Do You Have An Advance Directive? No Information n ot available 01/07/2025 If You Are , What Was Your Level Of Alcohol Consumption Prior To ? Occasional [email or web address] Information not available 10/17/2020 Are You Blind Or Do You Have Difficulty Seeing? No [email or web address] Information n ot available 03/27/2021 What Is Your Level Of Caffeine Consumption? Occasional [email or web address] Information not available 10/17/2020 In The 14 Days Before Symptom Onset, Have You Had Close Contact With A Laboratory-confirm ed COVID-19 While That Case Was Ill? No Information n ot available 03/27/2021 In The 14 Days Before Symptom Onset, Have You Had Close Contact With A Person Who Is Under Investigation For COVID-19 While That Person Was Ill? No [email or web address] Information not available 03/27/2021 Have You Been To An Area Known To Be High Risk For COVID-19? No [email or web address] Information not available 03/27/2021 Are You Deaf Or Do You Have Serious Difficulty Hearing? No [email or web address] Information not available 03/27/2021 What Type Of Diet Are You Following? REGULAR [email or web address] Information n ot available 03/27/2021 What Is The Highest Grade Or Level Of School You Have Completed Or The Highest Degree You Have Received? [id number] Information not available 01/07/2025 What Was The Date Of Your Most Recent Tobacco Screening? 02/06/2025 [email or web address] Information not available 02/06/2025 Have You Ever Been Counseled For Unhealthy Alcohol Use? No [email or web address] Information not available 10/17/2020 Do You Use Protection During Sex? No Information not available 01/07/2025 Do You Use Your Seat Belt Or Car Seat Routinely? Yes Information not available 03/27/2021 Do You Have Smoke And Carbon Monoxide Detectors In Your Home? Yes [email or web address] Information not available 03/27/2021 How Much Tobacco Do You Smoke? No [email or web address] Information not available 03/21/2020 Do You Use Sunscreen Routinely? Yes [email or web address] Information not available 03/27/2021 Has Tobacco Cessation Counseling Been Provided? No [email or web address] Information not available 10/17/2020 Have You Used IV Drugs? No Information not available 01/07/2025 Do You Have Difficulty Walking Or Climbing Stairs? No [email or web address] Information not available 02/06/2025 Sex: Unknown Functional Status Question Answer Note LastModified by Organizat ion Details LastModified Time Do you use any illicit or recreational drugs? No Information not available 10/17/2020 Do you or have you ever used any other forms of tobacco or nicotine? No Information not available 10/17/2020 What is your level of alcohol consumption? None [email or web address] Information not available 02/06/2025 Do you or have you ever used smokeless tobacco? Never used smokeless tobacco [email or web address] Information not available 03/21/2020 Are you able to walk independently without assistance or assistive devices? YESWOREST [email or web address] Information not available 03/27/2021 Are you able to care for yourself independently? Yes [email or web address] Information not available 02/06/2025 Do you have difficulty dressing, bathing, grooming, or toileting? No [email or web address] Information not available 02/06/2025 Do you or have you ever used e-cigarettes or vape? Never used electronic cigarettes [email or web address] Information not available 03/21/2020 What is your exercise level? Occasional Information not available 03/21/2020 Mental Status Question Answer Note LastModified by Organization D etails LastModified Time Do you feel stressed (tense, restless, nervous, or anxious, or unable to sleep at night)? [id number] [email or web address] Information not available 03/27/2021 Family History Relationship Description Onset Age of this Age Resolved Age Notes LastModified by Organization Details LastModified Time Mother Disorder of thyroid gland [email or web address] Not available 03/21 13:15:49 Father Diabetes mellitus [email or web address] Not available 03/21 13:16:06 Maternal Grandfather Diabetes mellitus [email or web address] Not available 03/21 13:16:06 Maternal Grandmother Malignant neoplasm of lung [email or web address] Not available 12/13 11:16:48 Medical History Condition Response Allergies (Food, seasonal, environmental ) Y Other N Blood Transfusion N Drug/Latex Allergies/Reactions N Breast Cancer N Dermatologic Disorders N [...] ICD10 Code Diagnosis IMO Codes Diagnosis Note [id number] Medina Whitaker [facility] [address] [address] 06/26/2025 14:50:38 06/26/2025 15:53:19 Gestation period, 33 weeks 27243124 Z3A.33 7285187 [id number] [facility] [address],[place] [address] 06/26/2025 15:32:15 06/26/2025 17:47:00 Hypertension AND/OR vomiting complicating childbirth AND/OR puerperium 196303557 O13.3 2898657 [id number] Lobito Salinas MD [place] [address],[facility] [place] [address] 07/03/2025 09:24:44 07/03/2025 10:27:55 -induced hypertension 88652726 O13.3 Z3A.34 584185 [id number] Medina Whitaker [facility] [address],[place] [address] 07/03/2025 09:24:58 07/03/2025 16:17:39 Maternal obesity complicating , childbirth and the puerperium, antepartum 2985285133 07 O99.210 2825304149 rf phentermin e, ok for one more refill then must take break [id number] Medina Whitaker [facility] [address] [place] [address] 07/03/2025 09:25:15 07/03/2025 11:45:20 Gestation period, 34 weeks 27296964 Z3A.34 9355807 [id number] Lobito Salinas MD [place] [address] [place] [address] 07/10/2025 09:26:17 07/10/2025 10:22:03 Chronic hypertension complicating AND/OR reason for care during 09742090 O10.919 O36.60X0 O99.210 Z3A.35 30909831 [id number] Medina Whitaker [facility] [address],[place] [address] 07/10/2025 09:27:40 07/10/2025 17:20:31 Maternal obesity complicating , childbirth and the puerperium, antepartum 8821240955 07 O99.210 4619526969 rf phentermin e, ok for one more refill then must take break [id number] [facility] [address] [place] [address] 07/10/2025 09:27:58 07/10/2025 12:08:57 Gestation period, 35 weeks 79042784 Z3A.35 5213149 [id number] Lobito Salinas MD [place] [address] [place] [address] 07/17/2025 09:20:51 07/17/2025 11:18:20 -induced hypertension 99014763 O13.3 O99.213 Z3A.36 977743 [id number] MIKE OROZCO MD [place] [address] [address] 07/17/2025 09:21:09 07/17/2025 11:18:15 Maternal obesity complicating , childbirth and the puerperium, antepartum 5065605628 07 O99.210 0404866029 [id number] Medina Whitaker CNM [place] [address] [address] 07/17/2025 09:21:21 07/17/2025 11:41:53 Gestation period, 36 weeks 35997856 Z3A.36 [id number] Health Concerns Section Related Observation LastModified by Organization Detai ls LastModified Time None Recorded Concern Status LastModified by Organization Details LastModified Time None Recorded Payers Encounter Date Sequence Insurance Name Policy Number Policy [place] Covered Member ID [place] Member ID Guarantor Name 07/17/2025 1 [facility] [id number] Apolinar Rivers [id number] Whit Rivers Notes Date Note Type Note Provider Name and Address Organization Details Recorded Time 07/17/2025 text/html Generic HPI TemplateReported by Patient Medina Whitaker CNM [address], [place], [address], , P[facility] 07/17/2025 11:30:47 OBGyn Episode Ob Episode Information Episode Created Date Number of Fetuses Patient Bloodtype Patient rh Status Prepregnancy Weight lbs Domestic Partner Domestic Partner Phone Father Name Paint Technician Status 02/07/20 25 1 O Positive 291 Apolinar Rivers OPEN Fetus Data First Name Last Name Admitted to NICU Weight (g) Sex Living Outcome Pediatric Complications Fetus ID Race Codes Race Delivery Type [id number] Problems Problem Notes Problem Name Start Date End Date Resolution Snomed Code Not e Attention deficit hyperactivity disorder 02/06/2025 308219821 stopped taking medication when found out Past history of gestational hypertension 02/06/2025 455944954 2016 pregnancys tart bASA x 2 daily Obesity 02/07/2025 598466694 testing @ 34wks Headache 02/06/2025 12334131 Mixed anxiety and depressive disorder 02/06/2025 933022645 Hypertension AND/OR vomiting complicating childbirth AND/OR puerperium 06/26/2025 550352786 Alfa Calculation Initial Alfa Date Initial Exam [...] Weight in lbs Pre/Post Dialysis Refused Weight 289.854331901128 BP Diastolic BP Location Tested BP Systolic [...] Weight in lbs Pre/Post Dialysis Refused Weight 294.374128565251 BP Diastolic BP Location Tested BP Systolic [...] Type Weight in lbs Pre/Post Dialysis Refused 297.420002533428 BP Diastolic BP Location Tested BP Systolic [...] Type Weight in lbs Pre/Post Dialysis Refused 302.914225354042 BP Diastolic BP Location Tested BP Systolic [...] Weight in lbs Pre/Post Dialysis Refused Weight 305.867515704366 BP Diastolic BP Location Tested BP Systolic [...] Weight in lbs Pre/Post Dialysis Refused Weight 306.705167006069 BP Diastolic BP Location Tested BP Systolic [...] Weight in lbs Pre/Post Dialysis Refused Weight 305.736079417342 BP Diastolic BP Location Tested BP Systolic [...] Weight in lbs Pre/Post Dialysis Refused Weight 307.737960958532 BP Diastolic BP Location Tested BP Systolic [...] Type Weight in lbs Pre/Post Dialysis Refused 308.000683551758 BP Diastolic BP Location Tested BP Systolic BP Type 81 L arm 132 sitting Fetus Heart Rate Present Fetus Movement A Yes Comments Flowsheet Date 07/03/2025 Bunn Score Blood Edema Fundus Height Fundus Units Glucose Ketones Leukocytes Nitrite Labor Signs Protein Cervic Dilation Cervic Effacement Cervic Station Type Weight in lbs Pre/Post Dialysis Refused 308.267149833153 BP Diastolic BP Location Tested BP Systolic [...] Weight in lbs Pre/Post Dialysis Refused Weight 310.826945021737 BP Diastolic BP Location Tested BP Systolic BP Type 85 L arm 128 sitting Fetus Heart Rate Present Fetus Movement A Yes Comments Flowsheet Date 07/10/2025 Bunn Score Blood Edema Fundus Height Fundus Units Glucose Ketones Leukocytes Nitrite Labor Signs Protein Cervic Dilation Cervic Effacement Cervic Station Type Weight in lbs Pre/Post Dialysis Refused 310.399805474155 BP Diastolic BP Location Tested BP Systolic [...] Type Weight in lbs Pre/Post Dialysis Refused 311.145261439921 BP Diastolic BP Location Tested BP Systolic [...] Weight in lbs Pre/Post Dialysis Refused Weight 312.036307068297 BP Diastolic BP Location Tested BP Systolic BP Type 84 L arm 131 sitting Fetus Heart Rate Present Fetus Movement A Yes Comments Flowsheet Date 07/24/2025 Bunn Score Blood Edema Fundus Height Fundus Units Glucose Ketones Leukocytes Nitrite Labor Signs Protein Cervic Dilation Cervic Effacement Cervic Station 1cm 50% -2 Type Weight in lbs Pre/Post Dialysis Refused Weight 312.883382596511 BP Diastolic BP Location Tested BP Systolic [...]
--- OUTSIDE RECORDS SUMMARY | 2025-07-26 05:57 | XMS_ITS | Continuity of Care Document ---
Author Organization [facility] Address [address] [place] [address] Care Team Providers Care Resume Writer Name Role Phone HA MORTON Primary Care Provider [phone] Assessment No assessment recorded. Plan of Treatment [...] Not available OB ROUTINE 2024 09:30A M VILLA BurnsM Not available Not available Not available Lab None recorde d. Referral None recorde d. Procedures None recorde d. Surgeries None recorde d. Imaging US, obstetr ic, biophys ical profile + non-str ess test 2024 025 [email or web address] [place], [facility] [address], [address], [place], [address], 07/03/2025 10:41:20 Medication Orders None recorde d. Patient TargetsNo targets recorded. Patient InstructionsNo instructions recorded. Reason for Referral None Reported. Results Created Date Observation Date Name Description Value Unit Range Abnormal Flag Note LastModifiedBy Organization Detail LastModifiedTime 02/15/2002/14/2025 [UNIT Y] ANEUP LOIDY NIPT fraction 3.9% normal Not Available [facility] [address], [place], [address], 02/14/2025 01:55:32 02/15/20 25 02/14/2025 [UNIT Y] ANEUP LOIDY NIPT 22Q11.2 microdeletio n LOW RISK <1 in 10,000 normal Not Available [facility] [address], [place], [address], 02/14/2025 01:55:32 02/15/20 25 02/14/2025 [UNIT Y] ANEUP LOIDY NIPT sex chromosome aneuploidy NOT DETECT ED normal Not Available [facility] [address], [place], [address], 02/14/2025 01:55:32 02/15/20 25 02/14/2025 [UNIT Y] ANEUP LOIDY NIPT monosomy X LOW RISK <1 in 10,000 normal Not Available [facility] [address], [place], [address], 02/14/2025 01:55:32 02/15/20 25 02/14/2025 [UNIT Y] ANEUP LOIDY NIPT trisomy 13 LOW RISK <1 in 10,000 normal Not Available [facility] [address], [place], [address], 02/14/2025 01:55:32 02/15/20 25 02/14/2025 [UNIT Y] ANEUP LOIDY NIPT trisomy 18 LOW RISK <1 in 10,000 normal Not Available [facility] [address], [place], [address], 02/14/2025 01:55:32 02/15/20 25 02/14/2025 [UNIT Y] ANEUP LOIDY NIPT trisomy 21 LOW RISK <1 in 10,000 normal Not Available [facility] [address], [place], [address], 02/14/2025 01:55:32 02/15/20 25 02/14/2025 [UNIT Y] ANEUP LOIDY NIPT sex MALE normal Not Available [facility] [address], [place], [address], 02/14/2025 01:55:32 02/15/20 25 02/14/2025 [UNIT Y] ANEUP LOIDY NIPT gestation SINGLE TON normal Not Available [facility] [address], [place], [address], 02/14/2025 01:55:32 02/15/20 25 02/14/2025 [UNIT Y] ANEUP LOIDY NIPT for detailed report, see pdf See PDF normal Not Available [facility] [address], [place], [address], 02/14/2025 01:55:32 02/18/20 25 02/17/2025 [UNIT Y] OTTO Islas sickle cell disease/beta -thalassemia /hemoglobino pathies carrier screen NEGATI VE normal Not Available [facility] [address], [place], [address], 02/17/2025 10:24:39 02/18/20 25 02/17/2025 [UNIT Y] OTTO Islas alpha-thalas semia carrier screen NEGATI VE normal Not Available [facility] [address], [place], [address], 02/17/2025 10:24:39 02/18/20 25 02/17/2025 [UNIT Y] OTTO JORGE Islas cystic fibrosis carrier screen NEGATI VE normal Not Available [facility] [address], [place], [address], 02/17/2025 10:24:39 02/18/20 25 02/17/2025 [UNIT Y] OTTO JORGE Islas spinal muscular atrophy carrier screen NEGATI VE 2 SMN1 copies , SNP not presen t normal Not Available [facility] [address], [place], [address], 02/17/2025 10:24:39 02/18/20 25 02/17/2025 [UNIT Y] OTTO JORGE Islas for detailed report, see pdf See PDF normal Not Available [facility] [address], [place], [address], 02/17/2025 10:24:39 02/07/20 25 02/06/2025 CBC W/DIF F WBC 12.0 10'3/ uL 3.5-10 .5 high Not Available [facility] (Lab) [address], [place], [address], 02/07/2025 13:12:55 02/07/20 25 02/06/2025 CBC W/DIF F RBC 4.52 10'6/ uL (based on docume nted legal sex) 3.80-5 .20 Not Available [facility] (Lab) [address], [place], [address], 02/07/2025 13:12:55 02/07/20 25 02/06/2025 CBC W/DIF F HGB 12.4 g/dL (based on docume nted legal sex) 11.6-1 5.4 Not Available [facility] (Lab) [address], [place], [address], 02/07/2025 13:12:55 02/07/20 25 02/06/2025 CBC W/DIF F HCT 38.9 % (based on docume nted legal sex) 34.0-4 5.0 Not Available [facility] (Lab) [address], [place], [address], 02/07/2025 13:12:55 02/07/20 25 02/06/2025 CBC W/DIF F MCV 86.1 fL 80.0-9 9.0 Not Available [facility] (Lab) [address], [place], [address], 02/07/2025 13:12:55 02/07/20 25 02/06/2025 CBC W/DIF F MCH 27.4 pg 27.0-3 4.0 Not Available [facility] (Lab) [address], [place], [address], 02/07/2025 13:12:55 02/07/20 25 02/06/2025 CBC W/DIF F MCHC 31.9 g/dL 32.0-3 5.5 low Not Available [facility] (Lab) [address], [place], [address], 02/07/2025 13:12:55 02/07/20 25 02/06/2025 CBC W/DIF F RDW 12.9 % 11.0-1 5.0 Not Available [facility] (Lab) [address], [place], [address], 02/07/2025 13:12:55 02/07/20 25 02/06/2025 CBC W/DIF F plt 281 10'3/ uL 150-40 0 Not Available [facility] (Lab) [address] [place], [address], 02/07/2025 13:12:55 02/07/20 25 02/06/2025 CBC W/DIF F MPV 11.0 fL 8.8-12 .1 Not Available [facility] (Lab) [address], [place], [address], 02/07/2025 13:12:55 02/07/20 25 02/06/2025 CBC W/DIF F NRBC's 0.0 % 0.0 Not Available [facility] (Lab) [address] [facility], [place], [address], 02/07/2025 13:12:55 02/07/20 25 02/06/2025 CBC W/DIF F absolute NRBCs 0.0 10'3/ uL no refere nce range establ ished Not Available [facility] (Lab) [address] [facility], [place], [address], 02/07/2025 13:12:55 02/07/20 25 02/06/2025 CBC W/DIF F neutrophils 72.5 % 34.0-7 3.0 Not Available [facility] (Lab) [address] [facility], [place], [address], 02/07/2025 13:12:55 02/07/20 25 02/06/2025 CBC W/DIF F lymphocytes 20.4 % 15.0-5 0.0 Not Available [facility] (Lab) [address] [facility], [place], [address], 02/07/2025 13:12:55 02/07/20 25 02/06/2025 CBC W/DIF F monocytes 5.9 % 1.0-15 .0 Not Available [facility] (Lab) [address] [facility], [place], [address], 02/07/2025 13:12:55 02/07/20 25 02/06/2025 CBC W/DIF F eosinophils 0.6 % 0.0-8. 0 Not Available [facility] (Lab) [address] [facility], [place], [address], 02/07/2025 13:12:55 02/07/20 25 02/06/2025 CBC W/DIF F basophils 0.3 % 0.0-2. 0 Not Available [facility] (Lab) [address] [facility], [place], [address], 02/07/2025 13:12:55 02/07/20 25 02/06/2025 CBC W/DIF [...] separ ately if prese nt. Not Available [facility] (Lab) [address] [facility], [place], [address], 02/07/2025 13:12:55 02/07/20 25 02/06/2025 CBC W/DIF F absolute neutrophils 8.7 10'3/ uL 1.5-8. 0 high Not Available [facility] (Lab) [address] [facility], [place], [address], 02/07/2025 13:12:55 02/07/20 25 02/06/2025 CBC W/DIF F absolute lymphocytes 2.4 10'3/ uL 1.0-4. 0 Not Available [facility] (Lab) [address] [facility], [place], [address], 02/07/2025 13:12:55 02/07/20 25 02/06/2025 CBC W/DIF F absolute monocytes 0.7 10'3/ uL 0.2-1. 0 Not Available [facility] (Lab) [address] [facility], [place], [address], 02/07/2025 13:12:55 02/07/20 25 02/06/2025 CBC W/DIF F absolute eosinophils 0.1 10'3/ uL 0.0-0. 6 Not Available [facility] (Lab) [address] [facility], [place], [address], 02/07/2025 13:12:55 02/07/20 25 02/06/2025 CBC W/DIF F absolute basophils 0.0 10'3/ uL 0.0-0. 3 Not Available [facility] (Lab) [address], [place], [address], 02/07/2025 13:12:55 02/07/20 25 02/06/2025 CBC W/DIF [...] the indiv idual patie nt: https ://jose and book. nm.or g/gen derx Not Available [facility] (Lab) [address], [place], [address], 02/07/2025 13:12:55 02/07/20 25 02/06/2025 HEPAT ITIS B SURFA CE ANTIG EN hepatitis B surface antigen Non-re active non-re active This assay was perfo rmed using [employer] ratio n reage nts and test kits. Value s obtai dexter with other assay metho ds or kits canno t be used inter lopez eably . Not Available [facility] (Lab) [address], [place], [address], 02/07/2025 13:12:55 02/07/2002/06/2025 HIV 1/2 ANTIG EN/AN TIBOD Y, REFLE X CONFI RMATI ON HIV antigen/anti body Nonrea ctive nonrea ctive HIV-1 antig en and HIV-1 /HIV- 2 antib odies were not detec ruy. No labor atory evide nce of HIV infec tion. Not Available [facility] (Lab) [address], [place], [address], 02/07/2025 13:12:56 02/07/2002/06/2025 HEPAT ITIS C ANTIB ANITA SCREE N, REFLE X TO CONFI RMATI ON hepatitis C antibody Non-re active non-re active Antib odies to HCV Not Detec ruy, does not exclu de the possi bilit y of expos ure to HCV. Not Available [facility] (Lab) [address], [place], [address], 02/07/2025 13:12:56 02/07/20 25 02/06/2025 RUBEL LA IGG ANTIB ANITA, QUANT rubella antibodies, IgG Reacti ve reacti ve Not Available [facility] (Lab) [address], [place], [address], 02/07/2025 13:12:56 02/07/20 25 02/06/2025 RUBEL LA IGG ANTIB ANITA, QUANT rubella antibodies, IgG quant 61.9 IU/mL >=10 Non-r eacti ve (Non- Immun e) <10 IU/mL React essie (Immu ne) > or = 10 IU/mL Not Available [facility] (Lab) [address], [place], [address], 02/07/2025 13:12:56 02/07/20 25 02/06/2025 TYPE/ RH/SC REEN ABO/Rh type O POS Not Available [facility] (Lab) [address], [place], [address], 02/07/2025 13:12:57 02/07/2002/06/2025 TYPE/ RH/SC REEN antibody screen NEG Not Available [facility] (Lab) [address], [place], [address], 02/07/2025 13:12:57 02/07/20 25 02/06/2025 TYPE/ RH/SC REEN exp date 2024 23:59 Not Available [facility] (Lab) [address], [place], [address], 02/07/2025 13:12:57 02/07/20 25 02/06/2025 RPR SCREE N, REFLE X TITER /CONF IRMAT ION RPR qualitative Nonrea ctive nonrea ctive Not Available [facility] (Lab) [address] [place], [address], 02/07/2025 13:12:57 02/07/20 25 02/06/2025 HEMOG LOBIN [...] >8.0% Actio n sugge sted Not Available [facility] (Lab) [address], [place], [address], 02/07/2025 13:12:57 02/07/2002/06/2025 CULTU RE: URINE result report SEE RESULT S BELOW Test: Cultu re: Urine Speci men Sourc e: Urine - Clean Catch Speci men Type: Urine Speci men Date: 2024 1737 Resul t Date: 2024 0700 Resul t Statu s: Final resul t Abnor mal: No Resul ting Lab: [facility] [address] [facility] [address] [address] [facility] [address] Tel: CULTU RE ----- ----- ----- --- Cultu re resul t (>=3 organ isms prese nt) indic ates possi ble conta minat ion. Repea t cultu re if sympt oms indic ate. Not Available [facility] (Lab) [address] [place], [address], 02/08/2025 08:03:32 02/07/20 25 02/06/2025 drug scree n, urine Amphetamines : negati ve Not Available [place] [address], [place], [address], 02/06/2025 18:30:19 02/07/20 25 02/06/2025 drug scree n, urine Cannabinoids : negati ve Not Available [place] [address], [place], [address], 02/06/2025 18:30:19 02/07/20 25 02/06/2025 drug scree n, urine Cocaine: negati ve Not Available [place] [address], [place], [address], 02/06/2025 18:30:19 02/07/20 25 02/06/2025 drug scree n, urine Opiates: negati ve Not Available [place] [address], [place], [address], 02/06/2025 18:30:19 02/07/20 25 02/06/2025 drug scree n, urine Phenocyclidi ne: negati ve Not Available [place] [address], [place], [address], 02/06/2025 18:30:19 02/07/20 25 02/06/2025 drug scree n, urine Barbiturates : negati ve Not Available [place] [address], [place], [address], 02/06/2025 18:30:19 02/07/20 25 02/06/2025 drug scree n, urine Benzodiazepi brayan: negati ve Not Available [place] [address], [place], [address], 02/06/2025 18:30:19 02/07/20 25 02/06/2025 drug scree n, urine Ethanol: negati ve Not Available [place] [address], [place], [address], 02/06/2025 18:30:19 02/07/20 25 02/06/2025 drug scree n, urine Hallucinogen s: negati ve Not Available [place] [address], [place], [address], 02/06/2025 18:30:19 02/07/20 25 02/06/2025 drug scree n, urine Inhalants: negati ve Not Available [place] [address], [place], [address], 02/06/2025 18:30:19 02/07/20 25 02/06/2025 drug scree n, urine Anabolic Steroids: negati ve Not Available [place] [address], [place], [address], 02/06/2025 18:30:19 02/07/20 25 02/06/2025 drug scree n, urine Other: negati ve Not Available [place] [address], [place], [address], 02/06/2025 18:30:19 05/15/20 25 05/15/2025 HEMOG LOBIN (HGB) HGB 10.9 g/dL (based on docume nted legal sex) 11.6-1 5.4 low Not Available [facility] (Lab) [address], [place], [address], 05/16/2025 09:55:38 05/15/2005/15/2025 HEMAT OCRIT (HCT) HCT 35.7 % (based on docume nted legal sex) 34.0-4 5.0 Not Available [facility] (Lab) [address], [place], [address], 05/16/2025 09:55:39 05/15/2005/15/2025 CBC W/DIF F WBC 14.6 10'3/ uL 3.5-10 .5 high Not Available [facility] (Lab) [address], [place], [address], 05/16/2025 09:55:39 05/15/2005/15/2025 CBC W/DIF F RBC 4.01 10'6/ uL (based on docume nted legal sex) 3.80-5 .20 Not Available [facility] (Lab) [address], [place], [address], 05/16/2025 09:55:39 05/15/2005/15/2025 CBC W/DIF F HGB 10.9 g/dL (based on docume nted legal sex) 11.6-1 5.4 low Not Available [facility] (Lab) [address] [place], [address], 05/16/2025 09:55:39 05/15/2005/15/2025 CBC W/DIF F HCT 35.7 % (based on docume nted legal sex) 34.0-4 5.0 Not Available [facility] (Lab) [address], [place], [address], 05/16/2025 09:55:39 05/15/2005/15/2025 CBC W/DIF F MCV 89.0 fL 80.0-9 9.0 Not Available [facility] (Lab) [address] [facility], [place], [address], 05/16/2025 09:55:39 05/15/2005/15/2025 CBC W/DIF F MCH 27.2 pg 27.0-3 4.0 Not Available [facility] (Lab) [address], [place], [address], 05/16/2025 09:55:39 05/15/2005/15/2025 CBC W/DIF F MCHC 30.5 g/dL 32.0-3 5.5 low Not Available [facility] (Lab) [address], [place], [address], 05/16/2025 09:55:39 05/15/2005/15/2025 CBC W/DIF F RDW 14.5 % 11.0-1 5.0 Not Available [facility] (Lab) [address], [place], [address], 05/16/2025 09:55:39 05/15/2005/15/2025 CBC W/DIF F plt 218 10'3/ uL 150-40 0 Not Available [facility] (Lab) [address], [place], [address], 05/16/2025 09:55:39 05/15/2005/15/2025 CBC W/DIF F MPV 11.1 fL 8.8-12 .1 Not Available [facility] (Lab) [address], [place], [address], 05/16/2025 09:55:39 05/15/2005/15/2025 CBC W/DIF F NRBC's 0.0 % 0.0 Not Available [facility] (Lab) [address], [place], [address], 05/16/2025 09:55:39 05/15/2005/15/2025 CBC W/DIF F absolute NRBCs 0.0 10'3/ uL no refere nce range establ ished Not Available [facility] (Lab) [address], [place], [address], 05/16/2025 09:55:39 05/15/2005/15/2025 CBC W/DIF F neutrophils 78.7 % 34.0-7 3.0 high Not Available [facility] (Lab) [address], [place], [address], 05/16/2025 09:55:39 05/15/20 25 05/15/2025 CBC W/DIF F lymphocytes 15.0 % 15.0-5 0.0 Not Available [facility] (Lab) [address], [place], [address], 05/16/2025 09:55:39 05/15/20 25 05/15/2025 CBC W/DIF F monocytes 4.9 % 1.0-15 .0 Not Available [facility] (Lab) [address] [facility], [place], [address], 05/16/2025 09:55:39 05/15/2005/15/2025 CBC W/DIF F eosinophils 0.6 % 0.0-8. 0 Not Available [facility] (Lab) [address], [place], [address], 05/16/2025 09:55:39 05/15/2005/15/2025 CBC W/DIF F basophils 0.3 % 0.0-2. 0 Not Available [facility] (Lab) [address] [facility], [place], [address], 05/16/2025 09:55:39 05/15/2005/15/2025 CBC W/DIF F immature granulocytes 0.5 % no define d refere nce range Immat ure Granu locyt es (IG) repre sents autom ated enume ratio n of Metam yeloc ytes, Myelo cytes and Promy elocy shlomo when IG is < 5%. Blast s are not inclu ded in IG and repor ruy separ ately if prese nt. Not Available [facility] (Lab) [address], [place], [address], 05/16/2025 09:55:39 05/15/2005/15/2025 CBC W/DIF F absolute neutrophils 11.4 10'3/ uL 1.5-8. 0 high Not Available [facility] (Lab) [address], [place], [address], 05/16/2025 09:55:39 05/15/2005/15/2025 CBC W/DIF F absolute lymphocytes 2.2 10'3/ uL 1.0-4. 0 Not Available [facility] (Lab) [address], [place], [address], 05/16/2025 09:55:39 05/15/2005/15/2025 CBC W/DIF F absolute monocytes 0.7 10'3/ uL 0.2-1. 0 Not Available [facility] (Lab) [address], [place], [address], 05/16/2025 09:55:39 05/15/2005/15/2025 CBC W/DIF F absolute eosinophils 0.1 10'3/ uL 0.0-0. 6 Not Available [facility] (Lab) [address], [place], [address], 05/16/2025 09:55:39 05/15/2005/15/2025 CBC W/DIF F absolute basophils 0.1 10'3/ uL 0.0-0. 3 Not Available [facility] (Lab) [address], [place], [address], 05/16/2025 09:55:39 05/15/2005/15/2025 CBC W/DIF F absolute [...] hyman book. nm.or g/gen derx Not Available [facility] (Lab) [address], [place], [address], 05/16/2025 09:55:39 05/15/2005/15/2025 GTT - GESTA KHANH Bryce LANGFORD N, ACOG OB glucose, 1 hour screen 115 mg/dL 70-135 Not Available [facility] (Lab) [address] [facility], [place], [address], 05/16/2025 09:55:40 05/15/20 25 05/15/2025 URIC ACID uric acid 4.1 mg/dL 2.3-6. 6 Not Available [facility] (Lab) [address] [facility], [place], [address], 05/16/2025 09:55:40 05/15/20 25 05/15/2025 CMP(C OMPRE HENSI VE METAB OLIC PANEL ) sodium 138 mmol/ L 133-14 6 Not Available [facility] (Lab) [address] [facility], [place], [address], 05/16/2025 09:55:41 05/15/20 25 05/15/2025 CMP(C OMPRE HENSI VE METAB OLIC PANEL ) potassium 4.1 mmol/ L 3.5-5. 1 Not Available [facility] (Lab) [address] [facility], [place], [address], 05/16/2025 09:55:41 05/15/20 25 05/15/2025 CMP(C OMPRE HENSI VE METAB OLIC PANEL ) chloride 104 mmol/ L 98-107 Not Available [facility] (Lab) [address] [place], [address], 05/16/2025 09:55:41 05/15/20 25 05/15/2025 CMP(C OMPRE HENSI VE METAB OLIC PANEL ) carbon dioxide 24 mmol/ L 21-31 Not Available [facility] (Lab) [address] [facility], [place], [address], 05/16/2025 09:55:41 05/15/20 25 05/15/2025 CMP(C OMPRE HENSI VE METAB OLIC PANEL ) anion gap 10 mmol/ L 4-13 Not Available [facility] (Lab) [address] [facility], [place], [address], 05/16/2025 09:55:41 05/15/20 25 05/15/2025 CMP(C OMPRE HENSI VE METAB OLIC PANEL ) blood urea nitrogen 7 mg/dL 7-25 Not Available [facility] (Lab) [address] [facility], [place], [address], 05/16/2025 09:55:41 05/15/20 25 05/15/2025 CMP(C OMPRE HENSI VE METAB OLIC PANEL ) creatinine 0.55 mg/dL 0.60-1 .30 low Not Available [facility] (Lab) [address] [facility], [place], [address], 05/16/2025 09:55:41 05/15/20 25 05/15/2025 CMP(C OMPRE HENSI VE METAB OLIC PANEL ) egfrcr (CKD-epi 2020) >90 mL/mi n/1.7 3_m2 >=60 Not Available [facility] (Lab) [address] [facility], [place], [address], 05/16/2025 09:55:41 05/15/20 25 05/15/2025 CMP(C OMPRE HENSI VE METAB OLIC PANEL ) calcium 8.7 mg/dL 8.3-10 .5 Not Available [facility] (Lab) [address] [facility], [place], [address], 05/16/2025 09:55:41 05/15/20 25 05/15/2025 CMP(C OMPRE HENSI VE METAB OLIC PANEL ) glucose 115 mg/dL 70-100 high Not Available [facility] (Lab) [address] [facility], [place], [address], 05/16/2025 09:55:41 05/15/20 25 05/15/2025 CMP(C OMPRE HENSI VE METAB OLIC PANEL ) protein, total 5.7 g/dL 6.4-8. 3 low Not Available [facility] (Lab) [address] [facility], [place], [address], 05/16/2025 09:55:41 05/15/2005/15/2025 CMP(C OMPRE HENSI VE METAB OLIC PANEL ) albumin 3.1 g/dL 3.5-5. 0 low Not Available [facility] (Lab) [address] [facility], [place], [address], 05/16/2025 09:55:41 05/15/2005/15/2025 CMP(C OMPRE HENSI VE METAB OLIC PANEL ) ALT 9 units /L 9-43 Not Available [facility] (Lab) [address] [facility], [place], [address], 05/16/2025 09:55:41 05/15/20 25 05/15/2025 CMP(C OMPRE HENSI VE METAB OLIC PANEL ) alkaline phosphatase 114 units /L 34-104 high Not Available [facility] (Lab) [address] [facility], [place], [address], 05/16/2025 09:55:41 05/15/20 25 05/15/2025 CMP(C OMPRE HENSI VE METAB OLIC PANEL ) AST 11 units /L 13-39 low Not Available [facility] (Lab) [address] [facility], [place], [address], 05/16/2025 09:55:41 05/15/20 25 05/15/2025 CMP(C OMPRE HENSI VE METAB OLIC PANEL ) bilirubin, total 0.3 mg/dL 0.2-1. 2 Not Available [facility] (Lab) [address] [place], [address], 05/16/2025 09:55:41 05/15/2005/15/2025 HIV 1/2 ANTIG EN/AN TIBOD Y, REFLE X CONFI RMATI ON HIV antigen/anti body Nonrea ctive nonrea ctive HIV-1 antig en and HIV-1 /HIV- 2 antib odies were not detec ruy. No labor atory evide nce of HIV infec tion. Not Available [facility] (Lab) [address] [facility], [place], [address], 05/16/2025 09:55:41 05/15/20 25 05/15/2025 PROTE IN/CR EATIN INE RATIO , URINE creatinine, urine 13.0 mg/dL R-No refer ence range estab lishe d for this assay Not Available [facility] (Lab) [address] [facility], [place], [address], 05/16/2025 09:55:42 05/15/2005/15/2025 PROTE IN/CR EATIN INE RATIO , URINE protein, urine <4 mg/dL R-No refer ence range estab lishe d for this assay Not Available [facility] (Lab) [address] [facility], [place], [address], 05/16/2025 09:55:42 05/15/20 25 05/15/2025 PROTE IN/CR [...] fican t prote inuri a. Not Available [facility] (Lab) [address] [facility], [place], [address], 05/16/2025 09:55:42 05/15/20 25 05/15/2025 RPR SCREE N, REFLE X TITER /CONF IRMAT ION RPR qualitative Nonrea ctive nonrea ctive Not Available [facility] (Lab) [address] [facility], [place], [address], 05/16/2025 09:55:42 06/26/20 25 06/26/2025 PROTE IN/CR EATIN INE RATIO , URINE creatinine, urine 177.6 mg/dL R-No refer ence range estab lishe d for this assay Not Available [facility] (Lab) [address] [facility], [place], [address], 06/27/2025 04:29:05 06/26/20 25 06/26/2025 PROTE IN/CR EATIN INE RATIO , URINE protein, urine 15 mg/dL R-No refer ence range estab lishe d for this assay Not Available [facility] (Lab) [address] [facility], [place], [address], 06/27/2025 04:29:05 06/26/2006/26/2025 PROTE IN/CR EATIN INE [...] fican t prote inuri a. Not Available [facility] (Lab) [address] [facility], [place], [address], 06/27/2025 04:29:05 06/26/20 25 06/26/2025 CBC W/DIF F WBC 13.4 10'3/ uL 3.5-10 .5 high Not Available [facility] (Lab) [address] [facility], [place], [address], 06/27/2025 04:29:05 06/26/20 25 06/26/2025 CBC W/DIF F RBC 4.22 10'6/ uL (based on docume nted legal sex) 3.80-5 .20 Not Available [facility] (Lab) [address], [place], [address], 06/27/2025 04:29:05 06/26/20 25 06/26/2025 CBC W/DIF F HGB 11.9 g/dL (based on docume nted legal sex) 11.6-1 5.4 Not Available [facility] (Lab) [address], [place], [address], 06/27/2025 04:29:05 06/26/20 25 06/26/2025 CBC W/DIF F HCT 37.5 % (based on docume nted legal sex) 34.0-4 5.0 Not Available [facility] (Lab) [address], [place], [address], 06/27/2025 04:29:05 06/26/20 25 06/26/2025 CBC W/DIF F MCV 88.9 fL 80.0-9 9.0 Not Available [facility] (Lab) [address], [place], [address], 06/27/2025 04:29:05 06/26/2006/26/2025 CBC W/DIF F MCH 28.2 pg 27.0-3 4.0 Not Available [facility] (Lab) [address], [place], [address], 06/27/2025 04:29:05 06/26/2006/26/2025 CBC W/DIF F MCHC 31.7 g/dL 32.0-3 5.5 low Not Available [facility] (Lab) [address], [place], [address], 06/27/2025 04:29:05 06/26/20 25 06/26/2025 CBC W/DIF F RDW 14.6 % 11.0-1 5.0 Not Available [facility] (Lab) [address], [place], [address], 06/27/2025 04:29:05 06/26/20 25 06/26/2025 CBC W/DIF F plt 224 10'3/ uL 150-40 0 Not Available [facility] (Lab) [address], [place], [address], 06/27/2025 04:29:05 06/26/20 25 06/26/2025 CBC W/DIF F MPV 12.2 fL 8.8-12 .1 high Not Available [facility] (Lab) [address], [place], [address], 06/27/2025 04:29:05 06/26/20 25 06/26/2025 CBC W/DIF F NRBC's 0.0 % 0.0 Not Available [facility] (Lab) [address], [place], [address], 06/27/2025 04:29:05 06/26/20 25 06/26/2025 CBC W/DIF F absolute NRBCs 0.0 10'3/ uL no refere nce range establ ished Not Available [facility] (Lab) [address], [place], [address], 06/27/2025 04:29:05 06/26/20 25 06/26/2025 CBC W/DIF F neutrophils 73.2 % 34.0-7 3.0 high Not Available [facility] (Lab) [address], [place], [address], 06/27/2025 04:29:05 06/26/20 25 06/26/2025 CBC W/DIF F lymphocytes 18.3 % 15.0-5 0.0 Not Available [facility] (Lab) [address], [place], [address], 06/27/2025 04:29:05 06/26/20 25 06/26/2025 CBC W/DIF F monocytes 7.5 % 1.0-15 .0 Not Available [facility] (Lab) [address], [place], [address], 06/27/2025 04:29:05 06/26/20 25 06/26/2025 CBC W/DIF F eosinophils 0.4 % 0.0-8. 0 Not Available [facility] (Lab) [address], [place], [address], 06/27/2025 04:29:05 06/26/20 25 06/26/2025 CBC W/DIF F basophils 0.2 % 0.0-2. 0 Not Available [facility] (Lab) [address], [place], [address], 06/27/2025 04:29:05 06/26/20 25 06/26/2025 CBC W/DIF [...] separ ately if prese nt. Not Available [facility] (Lab) [address], [place], [address], 06/27/2025 04:29:05 06/26/20 25 06/26/2025 CBC W/DIF F absolute neutrophils 9.8 10'3/ uL 1.5-8. 0 high Not Available [facility] (Lab) [address], [place], [address], 06/27/2025 04:29:05 06/26/20 25 06/26/2025 CBC W/DIF F absolute lymphocytes 2.5 10'3/ uL 1.0-4. 0 Not Available [facility] (Lab) [address], [place], [address], 06/27/2025 04:29:05 06/26/20 25 06/26/2025 CBC W/DIF F absolute monocytes 1.0 10'3/ uL 0.2-1. 0 Not Available [facility] (Lab) [address], [place], [address], 06/27/2025 04:29:05 06/26/20 25 06/26/2025 CBC W/DIF F absolute eosinophils 0.1 10'3/ uL 0.0-0. 6 Not Available [facility] (Lab) [address], [place], [address], 06/27/2025 04:29:05 06/26/20 25 06/26/2025 CBC W/DIF F absolute basophils 0.0 10'3/ uL 0.0-0. 3 Not Available [facility] (Lab) [address], [place], [address], 06/27/2025 04:29:05 06/26/20 25 06/26/2025 CBC W/DIF F absolute immature granulocytes 0.1 10'3/ uL 0.00-0 .10 Refer ence range s for nonbi nary/ inter sex or unspe cifie d gende r patie nts have not been estab lishe d. [facility] range s estab lishe d for cisge nder patie nts and evalu ate in the clini patrice kristal xt of the indiv idual patie nt: https ://la and book. nm.or g/gen derx Not Available [facility] (Lab) [address], [place], [address], 06/27/2025 04:29:05 06/26/20 25 06/26/2025 URIC ACID uric acid 4.8 mg/dL 2.3-6. 6 Not Available [facility] (Lab) [address] [place], [address], 06/27/2025 04:29:06 06/26/20 25 06/26/2025 CMP(C OMPRE HENSI VE METAB OLIC PANEL ) sodium 138 mmol/ L 133-14 6 Not Available [facility] (Lab) [address] [place], [address], 06/27/2025 04:29:06 06/26/20 25 06/26/2025 CMP(C OMPRE HENSI VE METAB OLIC PANEL ) potassium 4.0 mmol/ L 3.5-5. 1 Not Available [facility] (Lab) [address], [place], [address], 06/27/2025 04:29:06 06/26/20 25 06/26/2025 CMP(C OMPRE HENSI VE METAB OLIC PANEL ) chloride 103 mmol/ L 98-107 Not Available [facility] (Lab) [address], [place], [address], 06/27/2025 04:29:06 06/26/20 25 06/26/2025 CMP(C OMPRE HENSI VE METAB OLIC PANEL ) carbon dioxide 26 mmol/ L 21-31 Not Available [facility] (Lab) [address], [place], [address], 06/27/2025 04:29:06 06/26/20 25 06/26/2025 CMP(C OMPRE HENSI VE METAB OLIC PANEL ) anion gap 9 mmol/ L 4-13 Not Available [facility] (Lab) [address], [place], [address], 06/27/2025 04:29:06 06/26/20 25 06/26/2025 CMP(C OMPRE HENSI VE METAB OLIC PANEL ) blood urea nitrogen 7 mg/dL 7-25 Not Available [facility] (Lab) [address], [place], [address], 06/27/2025 04:29:06 06/26/20 25 06/26/2025 CMP(C OMPRE HENSI VE METAB OLIC PANEL ) creatinine 0.66 mg/dL 0.60-1 .30 Not Available [facility] (Lab) [address], [place], [address], 06/27/2025 04:29:06 06/26/2006/26/2025 CMP(C OMPRE HENSI VE METAB OLIC PANEL ) egfrcr (CKD-epi 2020) >90 mL/mi n/1.7 3_m2 >=60 Not Available [facility] (Lab) [address], [place], [address], 06/27/2025 04:29:06 06/26/20 25 06/26/2025 CMP(C OMPRE HENSI VE METAB OLIC PANEL ) calcium 9.0 mg/dL 8.3-10 .5 Not Available [facility] (Lab) [address], [place], [address], 06/27/2025 04:29:06 06/26/20 25 06/26/2025 CMP(C OMPRE HENSI VE METAB OLIC PANEL ) glucose 74 mg/dL 70-100 Not Available [facility] (Lab) [address], [place], [address], 06/27/2025 04:29:06 06/26/20 25 06/26/2025 CMP(C OMPRE HENSI VE METAB OLIC PANEL ) protein, total 6.1 g/dL 6.4-8. 3 low Not Available [facility] (Lab) [address] [place], [address], 06/27/2025 04:29:06 06/26/20 25 06/26/2025 CMP(C OMPRE HENSI VE METAB OLIC PANEL ) albumin 3.3 g/dL 3.5-5. 0 low Not Available [facility] (Lab) [address] [place], [address], 06/27/2025 04:29:06 06/26/20 25 06/26/2025 CMP(C OMPRE HENSI VE METAB OLIC PANEL ) ALT 36 units /L 9-43 Not Available [facility] (Lab) [address] [place], [address], 06/27/2025 04:29:06 06/26/20 25 06/26/2025 CMP(C OMPRE HENSI VE METAB OLIC PANEL ) alkaline phosphatase 131 units /L 34-104 high Not Available [facility] (Lab) [address] [place], [address], 06/27/2025 04:29:06 06/26/20 25 06/26/2025 CMP(C OMPRE HENSI VE METAB OLIC PANEL ) AST 20 units /L 13-39 Not Available [facility] (Lab) [address], [place], [address], 06/27/2025 04:29:06 06/26/20 25 06/26/2025 CMP(C OMPRE HENSI VE METAB OLIC PANEL ) bilirubin, total 0.3 mg/dL 0.2-1. 2 Not Available [facility] (Lab) [address], [place], [address], 06/27/2025 04:29:06 02/07/20 25 02/06/2025 US, obste tric, nucha l trans lucen cy No observ ation record ed. [email or web address] [place] [address], [place], [address], 02/06/2025 17:26:10 02/07/20 25 02/06/2025 US, obste tric, follo w-up No observ ation record ed. [email or web address] [address], [place], [address], 02/07/2025 11:49:39 03/27/20 25 03/27/2025 US, obste tric, 2nd or 3rd trime ster No observ ation record ed. [email or web address] [place] [address], [place], [address], 03/27/2025 16:50:03 03/27/20 25 03/27/2025 US, obste tric, 2nd or 3rd trime ster No observ ation record ed. [email or web address] Vivi [address], [place], [address], 04/01/2025 20:55:55 04/24/20 25 04/24/2025 US, obste tric, follo w-up No observ ation record ed. [facility] [address], [place], [address], 04/24/2025 18:50:20 04/24/2004/24/2025 US, obste tric, follo w-up No observ ation record ed. [email or web address] Vivi [address], [place], [address], 05/02/2025 18:12:06 05/05/20 25 05/05/2025 US, obste tric, limit ed No observ ation record ed. [address], [place], [address], 05/08/2025 11:23:32 05/05/20 25 05/05/2025 US, obste tric, limit ed No observ ation record ed. [address] [facility], [place], [address], 05/08/2025 11:23:15 05/06/20 25 05/05/2025 non-s tress test No observ ation record ed. [address], [place], [address], 05/14/2025 16:17:57 06/12/20 25 06/12/2025 US, obste tric, follo w-up No observ ation record ed. [email or web address] [place] [address], [place], [address], 06/12/2025 13:37:49 06/12/20 25 06/12/2025 US, obste tric, follo w-up No observ ation record ed. [email or web address] Viv[address], [place], [address], 06/14/2025 12:40:46 06/26/20 25 06/26/2025 non-s tress test No observ ation record ed. [email or web address] [place] [address], [place], [address], 06/26/2025 17:40:02 06/26/20 non-s tress test No observ ation record ed. [email or web address] [place] [address], [place], [address], 06/26/2025 17:40:25 07/03/20 25 07/03/2025 US, obste tric, bioph ysica l profi le + non-s tress test No observ ation record ed. [email or web address] [place] [address], [place], [address], 07/03/2025 10:21:51 07/03/2007/03/2025 US, obste tric, bioph ysica l profi le + non-s tress test No observ ation record ed. [email or web address] [address], [place], [address], 07/03/2025 10:36:03 07/03/20 25 07/03/2025 non-s tress test No observ ation record ed. [email or web address] [place] [address], [place], [address], 07/03/2025 17:34:00 07/03/20 non-s tress test No observ ation record ed. [place] [address], [place], [address], 07/03/2025 16:02:31 07/10/20 25 07/10/2025 US, obste tric, follo w-up No observ ation record ed. [email or web address] Vivi [address], [place], [address], 07/10/2025 11:53:53 07/10/20 25 07/10/2025 US, obste tric, follo w-up No observ ation record ed. [email or web address] [place] [address], [place], [address], 07/10/2025 13:24:28 07/10/2007/10/2025 US, obste tric, bioph ysica l profi le + non-s tress test No observ ation record ed. [email or web address] [place] [address], [place], [address], 07/10/2025 13:24:41 07/10/2007/10/2025 non-s tress test No observ ation record ed. [email or web address] [place] [address], [place], [address], 07/10/2025 16:54:42 07/10/20 non-s tress test No observ ation record ed. [email or web address] [place] [address], [place], [address], 07/10/2025 16:55:51 07/17/2007/17/2025 non-s tress test No observ ation record ed. [email or web address] [place] [address], [place], [address], 07/19/2025 11:50:49 07/17/20 non-s tress test No observ ation record ed. [place] [address], [place], [address], 07/17/2025 10:56:47 07/17/2007/17/2025 US, obste tric, bioph ysica l profi le + non-s tress test No observ ation record ed. [email or web address] [place] [address], [place], [address], 07/17/2025 13:24:17 07/17/20 25 07/17/2025 US, obste tric, bioph ysica l profi le + non-s tress test No observ ation record ed. [email or web address] Vivi [address], [place], [address], 07/17/2025 11:37:56 07/24/2007/24/2025 US, obste tric, bioph ysica l profi le + non-s tress test No observ ation record ed. [email or web address] [address], [place], [address], 07/24/2025 11:16:54 07/24/2007/24/2025 US, obste tric, bioph ysica l profi le + non-s tress test No observ ation record ed. [facility] [address], [place], [address], 07/24/2025 18:17:48 07/24/2007/24/2025 non-s tress test No observ ation record ed. [facility] [address], [place], [address], 07/24/2025 18:19:09 07/24/20 non-s tress test No observ ation record ed. [email or web address] [place] [address], [place], [address], 07/24/2025 16:00:08 Result Notes None recorded. Problems Name Problem SNOMED Code Status Onset Date Resolution Date Notes Provider Name and Address Organization Details Recorded Time Pregnanc y test negative [id number] Completed 201409/02/2020 Pregnanc y examinat ion or test, negative result;R ecorded Elsewher e: No [facility] S ource: EHR Composition Roofer elena: N Practi ce ID: 0001 Grabiel lable Time: 03:15:[address] [facility] [place] - [facility] 0 17:56:19 Obesity [id number] Completed 201409/03/2020 Obesity, unspecif ied;Prac bronson ID: 0001 Beverley lopez, [facility] 0 14:20:47 Speciali zed medical examinat ion Completed 201409/02/2020 Routine gynecolo gical examinat ion;Prac bronson ID: 0001 Beverley lopez, [facility] 0 17:57:40 Screenin g for malignan t neoplasm of cervix Completed 201409/02/2020 Pap Smear;Pr actice ID: [address] [facility], [facility] 0 17:56:38 Educatio n Completed 201409/02/2020 Family planning ;Recorde d Elsewher e: No [facility]: EHR Composition Roofer elena: N Mathieuti ce ID: 0001 Grabiel lable Time: 04:00:00 PM Beverley lopez, [facility] 0 17:55:08 Female infertil ity [id number] Completed 201410/17/2020 Infertil ity, female, of unspecif ied origin;P ractice ID: 0001 Beverley lopez, [facility] 1 10:55:45 Body mass index 30+ - obesity 180315036 Completed 201510/17/2020 Body mass index (BMI) 39.0-39. 9, adult;Re corded Elsewher e: No Locat ion: [facility] S ource: EHR Composition Roofer elena: N Mathieuti ce ID: 0001 Grabiel lable Time: 11:00:[address] [facility], [facility] 1 10:55:40 Syncope and collapse [id number] Completed 201510/17/2020 Syncope and collapse ;Recorde d Elsewher e: No Locat ion: [facility] S ource: EHR Composition Roofer elena: N Practi ce ID: 0001 Grabiel lable Time: 10:30:00 AM Beverley Corinne jessica, [facility] 1 10:56:12 Gestatio n less than 9 weeks [id number] Completed 201509/02/2020 Less than 8 weeks gestatio n of pregnanc y;Practi ce ID: 0001 Beverley Sun jessica, [facility] 0 17:55:27 Pregnanc y, childbir th and puerperi um finding Completed 201510/17/2020 Encntr for suprvsn of normal first preg, first trimeste r;Practi ce ID: 0001 Beverley Sun jessica, [facility] 1 10:55:59 Gestatio n period, 12 weeks [id number] Completed 201509/02/2020 12 weeks gestatio n of pregnanc y;Practi ce ID: 0001 Beverley Sun jessica, [facility] 0 17:55:30 Pregnanc y, childbir th and puerperi um finding Completed 201509/02/2020 Encntr for suprvsn of normal first preg, second trimeste r;Practi ce ID: 0001 Beverley Sun jessica, [facility] 0 17:56:27 Gestatio n period, 32 weeks [id number] Completed 201509/02/2020 32 weeks gestatio n of pregnanc y;Practi ce ID: 0001 Beverley Dos Santostz jessica, [facility] 0 17:55:35 Pregnanc y, childbir th and puerperi um finding Completed 201509/03/2020 Encounte r for supervis ion of normal first pregnanc y, third trimeste r;Record ed Elsewher e: No Locat ion: [facility] S ource: EHR Composition Roofer elena: N Practi ce ID: 0001 Grabiel lable Time: 05:30:00 PM Beverley lopez, [facility] 0 14:20:36 Gestatio n period, 33 weeks [id number] Completed 201509/02/2020 33 weeks gestatio n of pregnanc y;Record ed Elsewher e: No Locat ion: [facility] S ource: [facility] Composition Roofer elena: N Practi ce ID: 0001 Grabiel lable Time: 09:00:00 AM Beverley lopez, [facility] 0 17:55:39 [id number] Completed 201509/02/2020 Encounte r for suprvsn of normal pregnanc y, third trimeste r;Practi ce ID: 0001 Beverley lopez, [facility] 0 17:56:11 Gestatio n period, 34 weeks [id number] Completed 201509/02/2020 34 weeks gestatio n of pregnanc y;Practi ce ID: 0001 Beverley lopez, [facility] 0 17:55:42 Pregnanc y-induce d hyperten tonya Completed 201503/27/2021 Gestatio nal htn w/o signific ant proteinu che, third trimeste r;Record ed Elsewher e: No Locat ion: [facility] S ource: [facility] elena: N Practi ce ID: 0001 Grabiel lable Time: 03:00:00 PM Beverley lopez, [facility] 1 16:36:34 Gestatio n period, 36 weeks [id number] Completed 201509/02/2020 36 weeks gestatio n of pregnanc y;Practi ce ID: 0001 Beverley lopez, [facility] 0 17:55:48 Single live from singleto n pregnanc y [id number] Completed 201509/03/2020 Single live ;Pr actice ID: 0001 Beverley lopez, [facility] 0 14:20:54 Gestatio n period, 37 weeks [id number] Completed 201509/02/2020 37 weeks gestatio n of pregnanc y;Practi ce ID: 0001 Beverley lopez, [facility] 0 17:55:50 Pregnanc y-induce d hyperten tonya Completed 201509/02/2020 Gestatio nal htn w/o signific ant proteinu che, unsp trimeste r;Practi ce ID: 0001 Beverley lopez, [facility] 0 17:57:29 Hyperten sive disorder [id number] Completed 201503/27/2021 Benign hyperten tonya;Rec orded Elsewher e: No Locat ion: [facility] S ource: EHR Composition Roofer elena: N Practi ce ID: 0001 Grabiel lable Time: 10:30:00 AM Beverley lopez [facility] 5 19:18:30 Non-prot einuric hyperten tonya of pregnanc y 621091814 Completed 201510/17/2020 Gestatnl htn without signific ant protein, comp the puerp;Pr actice ID: 0001 Beverley lopez [facility] 1 10:56:02 Lochia finding Completed 201510/17/2020 Encounte r for routine postpart um follow-u p;Practi ce ID: 0001 Beverley lopez [facility] 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 0 17:56:45 Pregnanc y detectio n examinat ion Completed 201809/02/2020 Encounte r for pregnanc y test, result positive ;Practic e ID: 0001 Beverley lopez, [facility] 0 17:56:17 Uterine size for dates discrepa ncy Completed 201810/17/2020 Uterine size-malia e discrepa ncy, first trimeste r;Practi ce ID: 0001 Beverley Sun jessica, [facility] 1 10:56:17 Secondar y amenorrh ea [id number] Completed 201810/17/2020 Secondar y amenorrh ea;Recor ded Elsewher e: No Locat ion: [facility] S ource: EHR Composition Roofer elena: N Practi ce ID: 0001 Grabiel lable Time: 10:30:00 AM Beverley Sun jessica, [facility] 1 10:56:05 Infectio n screenin g Completed 201809/02/2020 Encounte r for screenin g for oth infec/pa rastc diseases ;Recorde d Elsewher e: No [facility]: EHR Composition Roofer elena: N Practi ce ID: 0001 Grabiel lable Time: 10:30:00 AM Beverley lopez, [facility] 0 17:56:03 Syphilis test finding [id number] Completed 201809/03/2020 Encntr screen for infectio ns w sexl mode of transmis s;Record ed Elsewher e: No Locat ion: [facility] S ource: EHR Composition Roofer elena: N Practi ce ID: 0001 Grabiel lable Time: 10:30:00 AM Beverley lopez [facility] 0 14:20:58 Finding of viabilit y of pregnanc y [id number] Completed 201809/02/2020 Pregnanc y w inconclu sive viabilit y, unsp;Pra ctice ID: 0001 Beverley lopez, [facility] 0 17:55:21 Finding of contents of cervix [id number] Completed 201809/02/2020 Weeks of gestatio n of pregnanc y not specifie d;Practi ce ID: [address] [facility], [facility] 0 17:55:14 Threaten ed miscarri age [id number] Completed 201810/17/2020 Threaten ed ;Recorde d Elsewher e: No Locat ion: [facility] S ource: EHR Composition Roofer elena: N Practi ce ID: 0001 Grabiel lable Time: 12:30:00 PM Beverley lopez, [facility] 1 10:56:15 Gestatio n period, 8 weeks [id number] Completed 201809/02/2020 8 weeks gestatio n of pregnanc y;Practi ce ID: 0001 Beverley lopez, [facility] 0 17:55:55 Rubella screenin g status [id number] Completed 201809/02/2020 Encounte r for antenata l screenin g, unspecif ied;Benitez rded Elsewher e: No Locat ion: [facility] S ource: EHR Composition Roofer elena: N Practi ce ID: 0001 Grabiel lable Time: 04:30:00 PM Beverley lopez, [facility] 0 17:56:34 Antenata l screenin g Completed 201809/02/2020 Encounte r for antenata l screenin g for nuchal transluc ency;Pra ctice ID: [id number] Beverley lopez, [facility] 0 17:57:11 Antenata l screenin g for malforma tion Completed 201809/02/2020 Encounte r for antenata l screenin g for malforma tions;Re corded Elsewher e: No Locat ion: [facility] S ource: EHR Composition Roofer elena: N Practi ce ID: [id number] Grabiel lable Time: 08:15:00 AM Beverley lopez, [facility] 0 17:57:13 Gestatio n period, 29 weeks [id number] Completed 201809/02/2020 29 weeks gestatio n of pregnanc y;Record ed Elsewher e: No Locat ion: [facility] S ource: EHR Composition Roofer elena: N Practi ce ID: [id number] Grabiel lable Time: 03:45:00 PM Beverley lopez, [facility] 0 17:55:32 Clinical finding Completed 201810/17/2020 Tachycar rishi, unspecif ied;Benitez rded Elsewher e: No [facility] Composition Roofer elena: N Practi ce ID: [id number] Grabiel lable Time: 11:15:00 AM eBverley lopez, [facility] 1 10:55:44 Clinical finding Completed 201809/02/2020 Obesity, unspecif ied;Benitez rded Elsewher e: No [facility]: [facility] Composition Roofer elena: N Practi ce ID: [id number] Grabiel lable Time: 03:00:00 PM Beverley lopez, [facility] 0 17:55:24 Finding of body mass index [id number] Completed 201809/02/2020 Body mass index (BMI) 40.0-44. 9, adult;Re corded Elsewher e: No Locat ion: [facility] S ource: EHR Composition Roofer elena: N Practi ce ID: [id number] Grabiel lable Time: 02:00:00 PM Beverley lopez, [facility] [facility] 0 17:56:59 Gestatio n period, 35 weeks [id number] Completed 201809/02/2020 35 weeks gestatio n of pregnanc y;Record ed Elsewher e: No Locat ion: [facility] S ource: EHR Composition Roofer elena: N Practi ce ID: 0001 Grabiel lable Time: 02:00:00 PM Beverley lopez, [facility] 0 17:55:44 Severe obesity complica ting pregnanc y [id number] Completed 201810/17/2020 Obesity complica ting pregnanc y, third trimeste r;Record ed Elsewher e: No Locat ion: [facility] S ource: EHR Composition Roofer elena: N Practi ce ID: 0001 Grabiel lable Time: 03:00:00 PM Beverley lopez, [facility] 1 10:56:10 Gestatio n period, 38 weeks 41970379 Completed 201809/02/2020 38 weeks gestatio n of pregnanc y;Record ed Elsewher e: No Locat ion: [facility] S ource: EHR Composition Roofer elena: N Practi ce ID: 0001 Grabiel lable Time: 11:00:00 AM Beverley lopez, [facility] 0 17:55:53 Hyperten tonya in the obstetri c context Completed 201810/17/2020 Pre-exis ting essentia l htn comp pregnanc y, third trimeste r;Practi ce ID: 0001 Beverley lopez, [facility] 1 10:55:52 Attentio n deficit hyperact ivity disorder 290504804 Active 05/28/ 2025 stopped taking medicati on when found out Beverley lopez, [facility] 19:38:30 Mixed anxiety and depressi ve disorder 558291515 Active 2024 Beverley lopez, [facility] 19:37:00 Hyperten sive disorder 09968019 Active 2024 Medina Whitaker CNM [address], [place], [address], [facility] 17:26:39 Headache 47073040 Active 2024 Beverley lopez, [facility] 19:37:14 Pregnanc y 56168475 Active [address] [facility], [facility] 19:36:35 Mixed anxiety and depressi ve disorder 437325651 Active [address] [facility], [facility] 19:37:00 Headache 51729292 Active [address] [facility], [facility] 19:37:14 Past pregnanc y history of gestatio nal hyperten tonya 186021170 Active 2024 2016 pregnanc y start bASA x 2 daily Medina Whitaker CNM [address], [place], [address], [facility] 17:26:14 Attentio n deficit hyperact ivity disorder 064875977 Active 2024 stopped taking medicati on when found out Beverley lopez, [facility] 19:38:30 Obesity 975763743 Active 2024 antenata l testing @ 34wks Sonya lopez, [facility] 5 20:55:07 Hyperten tonya AND/OR vomiting complica ting pregnanc y childbir th AND/OR puerperi 316866169 Active 2024 Medina Whitaker CNM [address], [place], [address], [facility] 5 15:51:32 Notes:Encounter for antenata l screening of mother Recorded Elsewhere: No Location: [facility] Source: EHR Chronic: N Practice ID: [id number] Billable Time: 10:30:00 AM Encounter for screening of mother Practice ID: [id number] Encounter for screening of mother Recorded Elsewhere: No Location: [facility] Source: EHR Chronic: N Practice ID: [id number] Billable Time: 10:30:00 AM Encounter for screening of mother Practice ID: [id number] Problem Notes None recorded. Procedures Surgical History Date Name Laterality Status Provider Name and Address Organization Details Recorded Time 1 Date of Last Pap Smear completed [facility] 02/06/2025 08:37:03 1 extraction of wisdom tooth completed [facility] 02/06/2025 19:33:27 Imaging Results [...] Prescrib ed Elsewher e: No [facility] DateTime : 08/25/20 08:06:19 AM [...] Prescrib ed Elsewher e: No Locat ion: [facility] odify By: [email or web address] solorzano DateTime : 10/26/19 11:16:05 AM Not [...] Prescrib ed Elsewher e: No Locat ion: [facility] odify By: [email or web address] z Hiro ter DateTime : 03/31/20 15 09:00:00 AM [...] Prescrib ed Elsewher e: No Locat ion: [facility] odify By: [email or web address] Brea haley DateTime [...] Address Organization Details Last Updated DateTime 07/03/2025 110911.56176 g 132/81 mm[Hg] Barbie Cliff [facility] 07/03/2025 11:23:56 Date Recorded Body weight Systolic And Diastolic Provider Name and Address Organization Details Last Updated DateTime 07/03/2025 814740.79386 g 132/81 mm[Hg] Zita Westfall [facility] 07/03/2025 15:58:08 Social History Question Answer Notes LastModified by Organizat ion Details LastModified Time Tobacco Smoking Status Never Smoker Beverley lopez, [facility] 03/21/2020 13:16:23 Do You Have An Advance Directive? No Information n ot available 01/07/2025 If You Are , What Was Your Level Of Alcohol Consumption Prior To ? Occasional [email or web address] Information not available 10/17/2020 Are You Blind Or Do You Have Difficulty Seeing? No Information n ot available 03/27/2021 What Is Your Level Of Caffeine Consumption? Occasional [email or web address] Information not available 10/17/2020 In The 14 Days Before Symptom Onset, Have You Had Close Contact With A Laboratory-confirm ed COVID-19 While That Case Was Ill? No [email or web address] Information n ot available 03/27/2021 In The 14 Days Before Symptom Onset, Have You Had Close Contact With A Person Who Is Under Investigation For COVID-19 While That Person Was Ill? No [email or web address] Information not available 03/27/2021 Have You Been To An Area Known To Be High Risk For COVID-19? No [email or web address] Information not available 03/27/2021 Are You Deaf Or Do You Have Serious Difficulty Hearing? No Information not available 03/27/2021 What Type Of Diet Are You Following? REGULAR [email or web address] Information n ot available 03/27/2021 What Is The Highest Grade Or Level Of School You Have Completed Or The Highest Degree You Have Received? [id number] Information not available 01/07/2025 What Was The Date Of Your Most Recent Tobacco Screening? 02/06/2025 [email or web address] Information not available 02/06/2025 Have You Ever Been Counseled For Unhealthy Alcohol Use? No [email or web address] Information not available 10/17/2020 Do You Use Protection During Sex? No Information not available 01/07/2025 Do You Use Your Seat Belt Or Car Seat Routinely? Yes [email or web address] Information not available 03/27/2021 Do You Have Smoke And Carbon Monoxide Detectors In Your Home? Yes [email or web address] Information not available 03/27/2021 How Much Tobacco Do You Smoke? No [email or web address] Information not available 03/21/2020 Do You Use Sunscreen Routinely? Yes [email or web address] Information not available 03/27/2021 Has Tobacco Cessation Counseling Been Provided? No [email or web address] Information not available 10/17/2020 Have You Used IV Drugs? No Information not available 01/07/2025 Do You Have Difficulty Walking Or Climbing Stairs? No [email or web address] Information not available 02/06/2025 Sex: Unknown Functional Status Question Answer Note LastModified by Organizat ion Details LastModified Time Do you use any illicit or recreational drugs? No [email or web address] Information not available 10/17/2020 Do you or have you ever used any other forms of tobacco or nicotine? No [email or web address] Information not available 10/17/2020 What is your level of alcohol consumption? None [email or web address] Information not available 02/06/2025 Do you or have you ever used smokeless tobacco? Never used smokeless tobacco [email or web address] Information not available 03/21/2020 Are you able to walk independently without assistance or assistive devices? YESWOREST [email or web address] Information not available 03/27/2021 Are you able to care for yourself independently? Yes [email or web address] Information not available 02/06/2025 Do you have difficulty dressing, bathing, grooming, or toileting? No [email or web address] Information not available 02/06/2025 Do you or have you ever used e-cigarettes or vape? Never used electronic cigarettes [email or web address] Information not available 03/21/2020 What is your exercise level? Occasional Information not available 03/21/2020 Mental Status Question Answer Note LastModified by Organization D etails LastModified Time Do you feel stressed (tense, restless, nervous, or anxious, or unable to sleep at night)? [id number] [email or web address] Information not available 03/27/2021 Family History Relationship Description Onset Age of this Age Resolved Age Notes LastModified by Organization Details LastModified Time Mother Disorder of thyroid gland [email or web address] Not available 03/21 13:15:49 Father Diabetes mellitus [email or web address] Not available 03/21 13:16:06 Maternal Grandfather Diabetes mellitus [email or web address] Not available 03/21 13:16:06 Maternal Grandmother Malignant [...] ICD10 Code Diagnosis IMO Codes Diagnosis Note [id number] Lobito Salinas MD [place] [address] [address] 06/12/2025 11:17:33 06/12/2025 12:05:04 Large for gestation age fetus 976717617 O36.60X0 Z3A.31 46151092 [id number] [facility] [address],[place] [address] 06/12/2025 11:18:32 06/12/2025 14:07:15 Gestation period, 31 weeks 81823838 Z3A.31 4224637 [id number] Medina Whitaker [facility] [address] 06/26/2025 14:50:38 06/26/2025 15:53:19 Gestation period, 33 weeks 85782526 Z3A.33 0802837 [id number] [facility] [address] [place] [address] 06/26/2025 15:32:15 06/26/2025 17:47:00 Hypertension AND/OR vomiting complicating childbirth AND/OR puerperium 072691656 O13.3 5470298 [id number] Lobito Salinas MD [place] [address],[place] [address] 07/03/2025 09:24:44 07/03/2025 10:27:55 -induced hypertension 71689164 O13.3 Z3A.34 421038 [id number] VILLA Juares[facility] [place] [address] [address] 07/03/2025 09:24:58 07/03/2025 16:17:39 Maternal obesity complicating , childbirth and the puerperium, antepartum 6998349531 07 O99.210 2663051269 rf phentermin e, ok for one more refill then must take break [id number] Medina Whitaker CNM [place] [address] [address] 07/03/2025 09:25:15 07/03/2025 11:45:20 Gestation period, 34 weeks 06364057 Z3A.34 [id number] Health Concerns Section Related Observation LastModified by Organization Detai ls LastModified Time None Recorded Concern Status LastModified by Organization Details LastModified Time None Recorded Payers Encounter Date Sequence Insurance Name Policy Number Policy [place] Covered Member ID [place] Member ID Guarantor Name 07/03/2025 1 [facility] [id number] Apolinar Rivers [id number] Whit Rivers Notes Date Note Type Note Provider Name and Address Organization Details Recorded Time 07/03/2025 text/html Generic HPI TemplateReported by Patient Medina Whitaker CNM [address], [place], [address], [facility] 07/03/2025 11:34:57 OBGyn Episode Ob Episode Information Episode Created Date Number of Fetuses Patient Bloodtype Patient rh Status Prepregnancy Weight lbs Domestic Partner Domestic Partner Phone Father Name Supervisor Wood Room Status 02/07/20 25 1 O Positive 291 Apolinar Rivers OPEN Fetus Data First Name Last Name Admitted to NICU Weight (g) Sex Living Outcome Pediatric Complications Fetus ID Race Codes Race Delivery Type [id number] Problems Problem Notes Problem Name Start Date End Date Resolution Snomed Code Not e Attention deficit hyperactivity disorder 02/06/2025 099744030 stopped taking medication when found out Past history of gestational hypertension 02/06/2025 793769352 2016 pregnancys tart bASA x 2 daily Obesity 02/07/2025 637020456 testing @ 34wks Headache 02/06/2025 84369574 Mixed anxiety and depressive disorder 02/06/2025 972091994 Hypertension AND/OR vomiting complicating childbirth AND/OR puerperium 06/26/2025 570526062 Alfa Calculation Initial Alfa Date Initial Exam [...] Weight in lbs Pre/Post Dialysis Refused Weight 289.019363083198 BP Diastolic BP Location Tested BP Systolic [...] Weight in lbs Pre/Post Dialysis Refused Weight 294.166321341776 BP Diastolic BP Location Tested BP Systolic [...] Type Weight in lbs Pre/Post Dialysis Refused 297.057123428486 BP Diastolic BP Location Tested BP Systolic [...] Type Weight in lbs Pre/Post Dialysis Refused 302.643867355982 BP Diastolic BP Location Tested BP Systolic [...] Weight in lbs Pre/Post Dialysis Refused Weight 305.296103927830 BP Diastolic BP Location Tested BP Systolic BP Type 80 L arm 150 sitting Fetus Heart Rate Present A 142 Present Fetus Movement A Yes Comments no sxs check labs with gct t htony, +FM, precautions and education f/u 2 week Flowsheet Date 05/29/2025 Bunn Score Blood Edema Fundus Height Fundus Units Glucose Ketones Leukocytes Nitrite Labor Signs Protein Cervic Dilation Cervic Effacement Cervic Station Type Weight in lbs Pre/Post Dialysis Refused Weight 306.312259976955 BP Diastolic BP Location Tested BP Systolic [...] Weight in lbs Pre/Post Dialysis Refused Weight 305.414066354312 BP Diastolic BP Location Tested BP Systolic [...] Weight in lbs Pre/Post Dialysis Refused Weight 307.021282177220 BP Diastolic BP Location Tested BP Systolic [...] Type Weight in lbs Pre/Post Dialysis Refused 308.667303053817 BP Diastolic BP Location Tested BP Systolic BP Type 81 L arm 132 sitting Fetus Heart Rate Present Fetus Movement A Yes Comments Flowsheet Date 07/03/2025 Bunn Score Blood Edema Fundus Height Fundus Units Glucose Ketones Leukocytes Nitrite Labor Signs Protein Cervic Dilation Cervic Effacement Cervic Station Type Weight in lbs Pre/Post Dialysis Refused 308.789862630637 BP Diastolic BP Location Tested BP Systolic [...] Weight in lbs Pre/Post Dialysis Refused Weight 310.947834415385 BP Diastolic BP Location Tested BP Systolic BP Type 85 L arm 128 sitting Fetus Heart Rate Present Fetus Movement A Yes Comments Flowsheet Date 07/10/2025 Bunn Score Blood Edema Fundus Height Fundus Units Glucose Ketones Leukocytes Nitrite Labor Signs Protein Cervic Dilation Cervic Effacement Cervic Station Type Weight in lbs Pre/Post Dialysis Refused 310.900804882440 BP Diastolic BP Location Tested BP Systolic [...] Type Weight in lbs Pre/Post Dialysis Refused 311.565339403020 BP Diastolic BP Location Tested BP Systolic [...] Weight in lbs Pre/Post Dialysis Refused Weight 312.907144585538 BP Diastolic BP Location Tested BP Systolic BP Type 84 L arm 131 sitting Fetus Heart Rate Present Fetus Movement A Yes Comments Flowsheet Date 07/24/2025 Bunn Score Blood Edema Fundus Height Fundus Units Glucose Ketones Leukocytes Nitrite Labor Signs Protein Cervic Dilation Cervic Effacement Cervic Station 1cm 50% -2 Type Weight in lbs Pre/Post Dialysis Refused Weight 312.749937645392 BP Diastolic BP Location Tested BP Systolic BP Type 84 L arm 131 sitting Fetus Heart Rate Present Fetus Movement Comments bpp 10 +FM, IOL planned or tuesday reviewed rec [...]
--- OUTSIDE RECORDS SUMMARY | 2025-07-26 05:57 | XMS_ITS | Continuity of Care Document ---
Author Organization [facility] Address [address] [place] [address] Care Team Providers Care Network Support Technician Name Role Phone HA MORTON Primary Care Provider [phone] Assessment No assessment recorded. Plan of Treatment [...] profile + non-str ess test 2024 025 [id number] [facility], [facility] [address], [address], [place], [address], 07/17/2025 11:18:20 Medication Orders None recorde d. Patient TargetsNo targets recorded. Patient InstructionsNo instructions recorded. Reason for Referral None Reported. Results Created Date Observation Date Name Description Value Unit Range Abnormal Flag Note LastModifiedBy Organization Detail LastModifiedTime 02/15/2002/14/2025 [UNIT Y] ANEUP LOIDY NIPT fraction 3.9% normal Not Available [facility] [address], [place], [address], 02/14/2025 01:55:32 02/15/20 25 02/14/2025 [UNIT Y] ANEUP LOIDY NIPT 22Q11.2 microdeletio n LOW RISK <1 in 10,000 normal Not Available [facility] [address], [place], [address], 02/14/2025 01:55:32 02/15/20 25 02/14/2025 [UNIT Y] ANEUP LOIDY NIPT sex chromosome aneuploidy NOT DETECT ED normal Not Available [facility] [address], [place], [address], 02/14/2025 01:55:32 02/15/20 25 02/14/2025 [UNIT Y] ANEUP LOIDY NIPT monosomy X LOW RISK <1 in 10,000 normal Not Available [facility] [address], [place], [address], 02/14/2025 01:55:32 02/15/20 25 02/14/2025 [UNIT Y] ANEUP LOIDY NIPT trisomy 13 LOW RISK <1 in 10,000 normal Not Available [facility] [address], [place], [address], 02/14/2025 01:55:32 02/15/20 25 02/14/2025 [UNIT Y] ANEUP LOIDY NIPT trisomy 18 LOW RISK <1 in 10,000 normal Not Available [facility] [address], [place], [address], 02/14/2025 01:55:32 02/15/20 25 02/14/2025 [UNIT Y] ANEUP LOIDY NIPT trisomy 21 LOW RISK <1 in 10,000 normal Not Available [facility] [address], [place], [address], 02/14/2025 01:55:32 02/15/20 25 02/14/2025 [UNIT Y] ANEUP LOIDY NIPT sex MALE normal Not Available [facility] [address], [place], [address], 02/14/2025 01:55:32 02/15/20 25 02/14/2025 [UNIT Y] ANEUP LOIDY NIPT gestation SINGLE TON normal Not Available [facility] [address], [place], [address], 02/14/2025 01:55:32 02/15/20 25 02/14/2025 [UNIT Y] ANEUP LOIDY NIPT for detailed report, see pdf See PDF normal Not Available [facility] [address], [place], [address], 02/14/2025 01:55:32 02/18/20 25 02/17/2025 [UNIT Y] OTTO Islas sickle cell disease/beta -thalassemia /hemoglobino pathies carrier screen NEGATI VE normal Not Available [facility] [address], [place], [address], 02/17/2025 10:24:39 02/18/20 25 02/17/2025 [UNIT Y] OTTO Islas alpha-thalas semia carrier screen NEGATI VE normal Not Available [facility] [address], [place], [address], 02/17/2025 10:24:39 02/18/20 25 02/17/2025 [UNIT Y] OTTO JORGE Islas cystic fibrosis carrier screen NEGATI VE normal Not Available [facility] [address], [place], [address], 02/17/2025 10:24:39 02/18/20 25 02/17/2025 [UNIT Y] OTTO JORGE Islas spinal muscular atrophy carrier screen NEGATI VE 2 SMN1 copies , SNP not presen t normal Not Available [facility] [address], [place], [address], 02/17/2025 10:24:39 02/18/20 25 02/17/2025 [UNIT Y] OTTO JORGE Islas for detailed report, see pdf See PDF normal Not Available [facility] [address], [place], [address], 02/17/2025 10:24:39 02/07/20 25 02/06/2025 CBC W/DIF F WBC 12.0 10'3/ uL 3.5-10 .5 high Not Available [facility] (Lab) [address], [place], [address], 02/07/2025 13:12:55 02/07/20 25 02/06/2025 CBC W/DIF F RBC 4.52 10'6/ uL (based on docume nted legal sex) 3.80-5 .20 Not Available [facility] (Lab) [address], [place], [address], 02/07/2025 13:12:55 02/07/20 25 02/06/2025 CBC W/DIF F HGB 12.4 g/dL (based on docume nted legal sex) 11.6-1 5.4 Not Available [facility] (Lab) [address], [place], [address], 02/07/2025 13:12:55 02/07/20 25 02/06/2025 CBC W/DIF F HCT 38.9 % (based on docume nted legal sex) 34.0-4 5.0 Not Available [facility] (Lab) [address], [place], [address], 02/07/2025 13:12:55 02/07/20 25 02/06/2025 CBC W/DIF F MCV 86.1 fL 80.0-9 9.0 Not Available [facility] (Lab) [address], [place], [address], 02/07/2025 13:12:55 02/07/20 25 02/06/2025 CBC W/DIF F MCH 27.4 pg 27.0-3 4.0 Not Available [facility] (Lab) [address], [place], [address], 02/07/2025 13:12:55 02/07/20 25 02/06/2025 CBC W/DIF F MCHC 31.9 g/dL 32.0-3 5.5 low Not Available [facility] (Lab) [address], [place], [address], 02/07/2025 13:12:55 02/07/20 25 02/06/2025 CBC W/DIF F RDW 12.9 % 11.0-1 5.0 Not Available [facility] (Lab) [address], [place], [address], 02/07/2025 13:12:55 02/07/20 25 02/06/2025 CBC W/DIF F plt 281 10'3/ uL 150-40 0 Not Available [facility] (Lab) [address] [place], [address], 02/07/2025 13:12:55 02/07/20 25 02/06/2025 CBC W/DIF F MPV 11.0 fL 8.8-12 .1 Not Available [facility] (Lab) [address], [place], [address], 02/07/2025 13:12:55 02/07/20 25 02/06/2025 CBC W/DIF F NRBC's 0.0 % 0.0 Not Available [facility] (Lab) [address] [facility], [place], [address], 02/07/2025 13:12:55 02/07/20 25 02/06/2025 CBC W/DIF F absolute NRBCs 0.0 10'3/ uL no refere nce range establ ished Not Available [facility] (Lab) [address] [facility], [place], [address], 02/07/2025 13:12:55 02/07/20 25 02/06/2025 CBC W/DIF F neutrophils 72.5 % 34.0-7 3.0 Not Available [facility] (Lab) [address] [facility], [place], [address], 02/07/2025 13:12:55 02/07/20 25 02/06/2025 CBC W/DIF F lymphocytes 20.4 % 15.0-5 0.0 Not Available [facility] (Lab) [address] [facility], [place], [address], 02/07/2025 13:12:55 02/07/20 25 02/06/2025 CBC W/DIF F monocytes 5.9 % 1.0-15 .0 Not Available [facility] (Lab) [address] [facility], [place], [address], 02/07/2025 13:12:55 02/07/20 25 02/06/2025 CBC W/DIF F eosinophils 0.6 % 0.0-8. 0 Not Available [facility] (Lab) [address] [facility], [place], [address], 02/07/2025 13:12:55 02/07/20 25 02/06/2025 CBC W/DIF F basophils 0.3 % 0.0-2. 0 Not Available [facility] (Lab) [address] [facility], [place], [address], 02/07/2025 13:12:55 02/07/20 25 02/06/2025 CBC W/DIF [...] separ ately if prese nt. Not Available [facility] (Lab) [address] [facility], [place], [address], 02/07/2025 13:12:55 02/07/20 25 02/06/2025 CBC W/DIF F absolute neutrophils 8.7 10'3/ uL 1.5-8. 0 high Not Available [facility] (Lab) [address] [facility], [place], [address], 02/07/2025 13:12:55 02/07/20 25 02/06/2025 CBC W/DIF F absolute lymphocytes 2.4 10'3/ uL 1.0-4. 0 Not Available [facility] (Lab) [address] [facility], [place], [address], 02/07/2025 13:12:55 02/07/20 25 02/06/2025 CBC W/DIF F absolute monocytes 0.7 10'3/ uL 0.2-1. 0 Not Available [facility] (Lab) [address] [facility], [place], [address], 02/07/2025 13:12:55 02/07/20 25 02/06/2025 CBC W/DIF F absolute eosinophils 0.1 10'3/ uL 0.0-0. 6 Not Available [facility] (Lab) [address] [facility], [place], [address], 02/07/2025 13:12:55 02/07/20 25 02/06/2025 CBC W/DIF F absolute basophils 0.0 10'3/ uL 0.0-0. 3 Not Available [facility] (Lab) [address], [place], [address], 02/07/2025 13:12:55 02/07/20 25 02/06/2025 CBC W/DIF [...] and book. nm.or g/gen derx Not Available [facility] (Lab) [address], [place], [address], 02/07/2025 13:12:55 02/07/20 25 02/06/2025 HEPAT ITIS B SURFA CE ANTIG EN hepatitis B surface antigen Non-re active non-re active This assay was perfo rmed using [employer] ratio n reage nts and test kits. Value s obtai dexter with other assay metho ds or kits canno t be used inter lopez eably . Not Available [facility] (Lab) [address], [place], [address], 02/07/2025 13:12:55 02/07/2002/06/2025 HIV 1/2 ANTIG EN/AN TIBOD Y, REFLE X CONFI RMATI ON HIV antigen/anti body Nonrea ctive nonrea ctive HIV-1 antig en and HIV-1 /HIV- 2 antib odies were not detec ruy. No labor atory evide nce of HIV infec tion. Not Available [facility] (Lab) [address], [place], [address], 02/07/2025 13:12:56 02/07/2002/06/2025 HEPAT ITIS C ANTIB ANITA SCREE N, REFLE X TO CONFI RMATI ON hepatitis C antibody Non-re active non-re active Antib odies to HCV Not Detec ruy, does not exclu de the possi bilit y of expos ure to HCV. Not Available [facility] (Lab) [address], [place], [address], 02/07/2025 13:12:56 02/07/20 25 02/06/2025 RUBEL LA IGG ANTIB ANITA, QUANT rubella antibodies, IgG Reacti ve reacti ve Not Available [facility] (Lab) [address], [place], [address], 02/07/2025 13:12:56 02/07/20 25 02/06/2025 RUBEL LA IGG ANTIB ANITA, QUANT rubella antibodies, IgG quant 61.9 IU/mL >=10 Non-r eacti ve (Non- Immun e) <10 IU/mL React essie (Immu ne) > or = 10 IU/mL Not Available [facility] (Lab) [address], [place], [address], 02/07/2025 13:12:56 02/07/20 25 02/06/2025 TYPE/ RH/SC REEN ABO/Rh type O POS Not Available [facility] (Lab) [address], [place], [address], 02/07/2025 13:12:57 02/07/2002/06/2025 TYPE/ RH/SC REEN antibody screen NEG Not Available [facility] (Lab) [address], [place], [address], 02/07/2025 13:12:57 02/07/20 25 02/06/2025 TYPE/ RH/SC REEN exp date 2024 23:59 Not Available [facility] (Lab) [address], [place], [address], 02/07/2025 13:12:57 02/07/20 25 02/06/2025 RPR SCREE N, REFLE X TITER /CONF IRMAT ION RPR qualitative Nonrea ctive nonrea ctive Not Available [facility] (Lab) [address] [place], [address], 02/07/2025 13:12:57 02/07/20 25 02/06/2025 HEMOG LOBIN [...] >8.0% Actio n sugge sted Not Available [facility] (Lab) [address], [place], [address], 02/07/2025 13:12:57 02/07/2002/06/2025 CULTU RE: URINE result report SEE RESULT S BELOW Test: Cultu re: Urine Speci men Sourc e: Urine - Clean Catch Speci men Type: Urine Speci men Date: 2024 1737 Resul t Date: 2024 0700 Resul t Statu s: Final resul t Abnor mal: No Resul ting Lab: [facility] [address] [facility] [address] Tel: CULTU RE ----- ----- ----- --- Cultu re resul t (>=3 organ isms prese nt) indic ates possi ble conta minat ion. Repea t cultu re if sympt oms indic ate. Not Available [facility] (Lab) [address] , [place], [address], 02/08/2025 08:03:32 02/07/20 25 02/06/2025 drug scree n, urine Amphetamines : negati ve Not Available [facility] [address], [place], [address], 02/06/2025 18:30:19 02/07/20 25 02/06/2025 drug scree n, urine Cannabinoids : negati ve Not Available [facility] [address], [place], [address], 02/06/2025 18:30:19 02/07/20 25 02/06/2025 drug scree n, urine Cocaine: negati ve Not Available [address], [place], [address], 02/06/2025 18:30:19 02/07/20 25 02/06/2025 drug scree n, urine Opiates: negati ve Not Available [address], [place], [address], 02/06/2025 18:30:19 02/07/20 25 02/06/2025 drug scree n, urine Phenocyclidi ne: negati ve Not Available [facility] [address], [place], [address], 02/06/2025 18:30:19 02/07/20 25 02/06/2025 drug scree n, urine Barbiturates : negati ve Not Available [facility] [address], [place], [address], 02/06/2025 18:30:19 02/07/20 25 02/06/2025 drug scree n, urine Benzodiazepi brayan: negati ve Not Available [address], [place], [address], 02/06/2025 18:30:19 02/07/20 25 02/06/2025 drug scree n, urine Ethanol: negati ve Not Available [facility] [address], [place], [address], 02/06/2025 18:30:19 02/07/20 25 02/06/2025 drug scree n, urine Hallucinogen s: negati ve Not Available [address], [place], [address], 02/06/2025 18:30:19 02/07/20 25 02/06/2025 drug scree n, urine Inhalants: negati ve Not Available [facility] [address], [place], [address], 02/06/2025 18:30:19 02/07/20 25 02/06/2025 drug scree n, urine Anabolic Steroids: negati ve Not Available [facility] [address], [place], [address], 02/06/2025 18:30:19 02/07/20 25 02/06/2025 drug scree n, urine Other: negati ve Not Available [facility] [address], [place], [address], 02/06/2025 18:30:19 05/15/20 25 05/15/2025 HEMOG LOBIN (HGB) HGB 10.9 g/dL (based on docume nted legal sex) 11.6-1 5.4 low Not Available [facility] (Lab) [address], [place], [address], 05/16/2025 09:55:38 05/15/2005/15/2025 HEMAT OCRIT (HCT) HCT 35.7 % (based on docume nted legal sex) 34.0-4 5.0 Not Available [facility] (Lab) [address], [place], [address], 05/16/2025 09:55:39 05/15/2005/15/2025 CBC W/DIF F WBC 14.6 10'3/ uL 3.5-10 .5 high Not Available [facility] (Lab) [address], [place], [address], 05/16/2025 09:55:39 05/15/2005/15/2025 CBC W/DIF F RBC 4.01 10'6/ uL (based on docume nted legal sex) 3.80-5 .20 Not Available [facility] (Lab) [address], [place], [address], 05/16/2025 09:55:39 05/15/2005/15/2025 CBC W/DIF F HGB 10.9 g/dL (based on docume nted legal sex) 11.6-1 5.4 low Not Available [facility] (Lab) [address] [place], [address], 05/16/2025 09:55:39 05/15/2005/15/2025 CBC W/DIF F HCT 35.7 % (based on docume nted legal sex) 34.0-4 5.0 Not Available [facility] (Lab) [address], [place], [address], 05/16/2025 09:55:39 05/15/2005/15/2025 CBC W/DIF F MCV 89.0 fL 80.0-9 9.0 Not Available [facility] (Lab) [address] [facility], [place], [address], 05/16/2025 09:55:39 05/15/2005/15/2025 CBC W/DIF F MCH 27.2 pg 27.0-3 4.0 Not Available [facility] (Lab) [address], [place], [address], 05/16/2025 09:55:39 05/15/2005/15/2025 CBC W/DIF F MCHC 30.5 g/dL 32.0-3 5.5 low Not Available [facility] (Lab) [address], [place], [address], 05/16/2025 09:55:39 05/15/2005/15/2025 CBC W/DIF F RDW 14.5 % 11.0-1 5.0 Not Available [facility] (Lab) [address], [place], [address], 05/16/2025 09:55:39 05/15/2005/15/2025 CBC W/DIF F plt 218 10'3/ uL 150-40 0 Not Available [facility] (Lab) [address], [place], [address], 05/16/2025 09:55:39 05/15/2005/15/2025 CBC W/DIF F MPV 11.1 fL 8.8-12 .1 Not Available [facility] (Lab) [address], [place], [address], 05/16/2025 09:55:39 05/15/2005/15/2025 CBC W/DIF F NRBC's 0.0 % 0.0 Not Available [facility] (Lab) [address], [place], [address], 05/16/2025 09:55:39 05/15/2005/15/2025 CBC W/DIF F absolute NRBCs 0.0 10'3/ uL no refere nce range establ ished Not Available [facility] (Lab) [address], [place], [address], 05/16/2025 09:55:39 05/15/2005/15/2025 CBC W/DIF F neutrophils 78.7 % 34.0-7 3.0 high Not Available [facility] (Lab) [address], [place], [address], 05/16/2025 09:55:39 05/15/20 25 05/15/2025 CBC W/DIF F lymphocytes 15.0 % 15.0-5 0.0 Not Available [facility] (Lab) [address], [place], [address], 05/16/2025 09:55:39 05/15/20 25 05/15/2025 CBC W/DIF F monocytes 4.9 % 1.0-15 .0 Not Available [facility] (Lab) [address] [facility], [place], [address], 05/16/2025 09:55:39 05/15/2005/15/2025 CBC W/DIF F eosinophils 0.6 % 0.0-8. 0 Not Available [facility] (Lab) [address], [place], [address], 05/16/2025 09:55:39 05/15/2005/15/2025 CBC W/DIF F basophils 0.3 % 0.0-2. 0 Not Available [facility] (Lab) [address] [facility], [place], [address], 05/16/2025 09:55:39 05/15/2005/15/2025 CBC W/DIF F immature granulocytes 0.5 % no define d refere nce range Immat ure Granu locyt es (IG) repre sents autom ated enume ratio n of Metam yeloc ytes, Myelo cytes and Promy elocy shlomo when IG is < 5%. Blast s are not inclu ded in IG and repor ruy separ ately if prese nt. Not Available [facility] (Lab) [address], [place], [address], 05/16/2025 09:55:39 05/15/2005/15/2025 CBC W/DIF F absolute neutrophils 11.4 10'3/ uL 1.5-8. 0 high Not Available [facility] (Lab) [address], [place], [address], 05/16/2025 09:55:39 05/15/2005/15/2025 CBC W/DIF F absolute lymphocytes 2.2 10'3/ uL 1.0-4. 0 Not Available [facility] (Lab) [address], [place], [address], 05/16/2025 09:55:39 05/15/2005/15/2025 CBC W/DIF F absolute monocytes 0.7 10'3/ uL 0.2-1. 0 Not Available [facility] (Lab) [address], [place], [address], 05/16/2025 09:55:39 05/15/2005/15/2025 CBC W/DIF F absolute eosinophils 0.1 10'3/ uL 0.0-0. 6 Not Available [facility] (Lab) [address], [place], [address], 05/16/2025 09:55:39 05/15/2005/15/2025 CBC W/DIF F absolute basophils 0.1 10'3/ uL 0.0-0. 3 Not Available [facility] (Lab) [address], [place], [address], 05/16/2025 09:55:39 05/15/2005/15/2025 CBC W/DIF F absolute [...] hyman book. nm.or g/gen derx Not Available [facility] (Lab) [address], [place], [address], 05/16/2025 09:55:39 05/15/2005/15/2025 GTT - GESTA KHANH Bryce [place] N, ACOG OB glucose, 1 hour screen 115 mg/dL 70-135 Not Available [facility] (Lab) [address] [facility], [place], [address], 05/16/2025 09:55:40 05/15/20 25 05/15/2025 URIC ACID uric acid 4.1 mg/dL 2.3-6. 6 Not Available [facility] (Lab) [address] [facility], [place], [address], 05/16/2025 09:55:40 05/15/20 25 05/15/2025 CMP(C OMPRE HENSI VE METAB OLIC PANEL ) sodium 138 mmol/ L 133-14 6 Not Available [facility] (Lab) [address] [facility], [place], [address], 05/16/2025 09:55:41 05/15/20 25 05/15/2025 CMP(C OMPRE HENSI VE METAB OLIC PANEL ) potassium 4.1 mmol/ L 3.5-5. 1 Not Available [facility] (Lab) [address] [facility], [place], [address], 05/16/2025 09:55:41 05/15/20 25 05/15/2025 CMP(C OMPRE HENSI VE METAB OLIC PANEL ) chloride 104 mmol/ L 98-107 Not Available [facility] (Lab) [address] [place], [address], 05/16/2025 09:55:41 05/15/20 25 05/15/2025 CMP(C OMPRE HENSI VE METAB OLIC PANEL ) carbon dioxide 24 mmol/ L 21-31 Not Available [facility] (Lab) [address] [facility], [place], [address], 05/16/2025 09:55:41 05/15/20 25 05/15/2025 CMP(C OMPRE HENSI VE METAB OLIC PANEL ) anion gap 10 mmol/ L 4-13 Not Available [facility] (Lab) [address] [facility], [place], [address], 05/16/2025 09:55:41 05/15/20 25 05/15/2025 CMP(C OMPRE HENSI VE METAB OLIC PANEL ) blood urea nitrogen 7 mg/dL 7-25 Not Available [facility] (Lab) [address] [facility], [place], [address], 05/16/2025 09:55:41 05/15/20 25 05/15/2025 CMP(C OMPRE HENSI VE METAB OLIC PANEL ) creatinine 0.55 mg/dL 0.60-1 .30 low Not Available [facility] (Lab) [address] [facility], [place], [address], 05/16/2025 09:55:41 05/15/20 25 05/15/2025 CMP(C OMPRE HENSI VE METAB OLIC PANEL ) egfrcr (CKD-epi 2020) >90 mL/mi n/1.7 3_m2 >=60 Not Available [facility] (Lab) [address] [facility], [place], [address], 05/16/2025 09:55:41 05/15/20 25 05/15/2025 CMP(C OMPRE HENSI VE METAB OLIC PANEL ) calcium 8.7 mg/dL 8.3-10 .5 Not Available [facility] (Lab) [address] [facility], [place], [address], 05/16/2025 09:55:41 05/15/20 25 05/15/2025 CMP(C OMPRE HENSI VE METAB OLIC PANEL ) glucose 115 mg/dL 70-100 high Not Available [facility] (Lab) [address] [facility], [place], [address], 05/16/2025 09:55:41 05/15/20 25 05/15/2025 CMP(C OMPRE HENSI VE METAB OLIC PANEL ) protein, total 5.7 g/dL 6.4-8. 3 low Not Available [facility] (Lab) [address] [facility], [place], [address], 05/16/2025 09:55:41 05/15/2005/15/2025 CMP(C OMPRE HENSI VE METAB OLIC PANEL ) albumin 3.1 g/dL 3.5-5. 0 low Not Available [facility] (Lab) [address] [facility], [place], [address], 05/16/2025 09:55:41 05/15/2005/15/2025 CMP(C OMPRE HENSI VE METAB OLIC PANEL ) ALT 9 units /L 9-43 Not Available [facility] (Lab) [address] [facility], [place], [address], 05/16/2025 09:55:41 05/15/20 25 05/15/2025 CMP(C OMPRE HENSI VE METAB OLIC PANEL ) alkaline phosphatase 114 units /L 34-104 high Not Available [facility] (Lab) [address] [facility], [place], [address], 05/16/2025 09:55:41 05/15/20 25 05/15/2025 CMP(C OMPRE HENSI VE METAB OLIC PANEL ) AST 11 units /L 13-39 low Not Available [facility] (Lab) [address] [facility], [place], [address], 05/16/2025 09:55:41 05/15/20 25 05/15/2025 CMP(C OMPRE HENSI VE METAB OLIC PANEL ) bilirubin, total 0.3 mg/dL 0.2-1. 2 Not Available [facility] (Lab) [address] [place], [address], 05/16/2025 09:55:41 05/15/2005/15/2025 HIV 1/2 ANTIG EN/AN TIBOD Y, REFLE X CONFI RMATI ON HIV antigen/anti body Nonrea ctive nonrea ctive HIV-1 antig en and HIV-1 /HIV- 2 antib odies were not detec ruy. No labor atory evide nce of HIV infec tion. Not Available [facility] (Lab) [address], [place], [address], 05/16/2025 09:55:41 05/15/20 25 05/15/2025 PROTE IN/CR EATIN INE RATIO , URINE creatinine, urine 13.0 mg/dL R-No refer ence range estab lishe d for this assay Not Available [facility] (Lab) [address], [place], [address], 05/16/2025 09:55:42 05/15/2005/15/2025 PROTE IN/CR EATIN INE RATIO , URINE protein, urine <4 mg/dL R-No refer ence range estab lishe d for this assay Not Available [facility] (Lab) [address], [place], [address], 05/16/2025 09:55:42 05/15/20 25 05/15/2025 PROTE IN/CR [...] fican t prote inuri a. Not Available [facility] (Lab) [address], [place], [address], 05/16/2025 09:55:42 05/15/20 25 05/15/2025 RPR SCREE N, REFLE X TITER /CONF IRMAT ION RPR qualitative Nonrea ctive nonrea ctive Not Available [facility] (Lab) [address], [place], [address], 05/16/2025 09:55:42 06/26/20 25 06/26/2025 PROTE IN/CR EATIN INE RATIO , URINE creatinine, urine 177.6 mg/dL R-No refer ence range estab lishe d for this assay Not Available [facility] (Lab) [address], [place], [address], 06/27/2025 04:29:05 06/26/20 25 06/26/2025 PROTE IN/CR EATIN INE RATIO , URINE protein, urine 15 mg/dL R-No refer ence range estab lishe d for this assay Not Available [facility] (Lab) [address], [place], [address], 06/27/2025 04:29:05 06/26/2006/26/2025 PROTE IN/CR EATIN INE [...] fican t prote inuri a. Not Available [facility] (Lab) [address], [place], [address], 06/27/2025 04:29:05 06/26/20 25 06/26/2025 CBC W/DIF F WBC 13.4 10'3/ uL 3.5-10 .5 high Not Available [facility] (Lab) [address], [place], [address], 06/27/2025 04:29:05 06/26/20 25 06/26/2025 CBC W/DIF F RBC 4.22 10'6/ uL (based on docume nted legal sex) 3.80-5 .20 Not Available [facility] (Lab) [address], [place], [address], 06/27/2025 04:29:05 06/26/20 25 06/26/2025 CBC W/DIF F HGB 11.9 g/dL (based on docume nted legal sex) 11.6-1 5.4 Not Available [facility] (Lab) [address], [place], [address], 06/27/2025 04:29:05 06/26/20 25 06/26/2025 CBC W/DIF F HCT 37.5 % (based on docume nted legal sex) 34.0-4 5.0 Not Available [facility] (Lab) [address], [place], [address], 06/27/2025 04:29:05 06/26/20 25 06/26/2025 CBC W/DIF F MCV 88.9 fL 80.0-9 9.0 Not Available [facility] (Lab) [address], [place], [address], 06/27/2025 04:29:05 06/26/2006/26/2025 CBC W/DIF F MCH 28.2 pg 27.0-3 4.0 Not Available [facility] (Lab) [address], [place], [address], 06/27/2025 04:29:05 06/26/2006/26/2025 CBC W/DIF F MCHC 31.7 g/dL 32.0-3 5.5 low Not Available [facility] (Lab) [address], [place], [address], 06/27/2025 04:29:05 06/26/20 25 06/26/2025 CBC W/DIF F RDW 14.6 % 11.0-1 5.0 Not Available [facility] (Lab) [address], [place], [address], 06/27/2025 04:29:05 06/26/20 25 06/26/2025 CBC W/DIF F plt 224 10'3/ uL 150-40 0 Not Available [facility] (Lab) [address], [place], [address], 06/27/2025 04:29:05 06/26/20 25 06/26/2025 CBC W/DIF F MPV 12.2 fL 8.8-12 .1 high Not Available [facility] (Lab) [address], [place], [address], 06/27/2025 04:29:05 06/26/20 25 06/26/2025 CBC W/DIF F NRBC's 0.0 % 0.0 Not Available [facility] (Lab) [address], [place], [address], 06/27/2025 04:29:05 06/26/20 25 06/26/2025 CBC W/DIF F absolute NRBCs 0.0 10'3/ uL no refere nce range establ ished Not Available [facility] (Lab) [address], [place], [address], 06/27/2025 04:29:05 06/26/20 25 06/26/2025 CBC W/DIF F neutrophils 73.2 % 34.0-7 3.0 high Not Available [facility] (Lab) [address], [place], [address], 06/27/2025 04:29:05 06/26/20 25 06/26/2025 CBC W/DIF F lymphocytes 18.3 % 15.0-5 0.0 Not Available [facility] (Lab) [address], [place], [address], 06/27/2025 04:29:05 06/26/20 25 06/26/2025 CBC W/DIF F monocytes 7.5 % 1.0-15 .0 Not Available [facility] (Lab) [address], [place], [address], 06/27/2025 04:29:05 06/26/20 25 06/26/2025 CBC W/DIF F eosinophils 0.4 % 0.0-8. 0 Not Available [facility] (Lab) [address], [place], [address], 06/27/2025 04:29:05 06/26/20 25 06/26/2025 CBC W/DIF F basophils 0.2 % 0.0-2. 0 Not Available [facility] (Lab) [address], [place], [address], 06/27/2025 04:29:05 06/26/20 25 06/26/2025 CBC W/DIF [...] separ ately if prese nt. Not Available [facility] (Lab) [address], [place], [address], 06/27/2025 04:29:05 06/26/20 25 06/26/2025 CBC W/DIF F absolute neutrophils 9.8 10'3/ uL 1.5-8. 0 high Not Available [facility] (Lab) [address], [place], [address], 06/27/2025 04:29:05 06/26/20 25 06/26/2025 CBC W/DIF F absolute lymphocytes 2.5 10'3/ uL 1.0-4. 0 Not Available [facility] (Lab) [address], [place], [address], 06/27/2025 04:29:05 06/26/20 25 06/26/2025 CBC W/DIF F absolute monocytes 1.0 10'3/ uL 0.2-1. 0 Not Available [facility] (Lab) [address], [place], [address], 06/27/2025 04:29:05 06/26/20 25 06/26/2025 CBC W/DIF F absolute eosinophils 0.1 10'3/ uL 0.0-0. 6 Not Available [facility] (Lab) [address], [place], [address], 06/27/2025 04:29:05 06/26/20 25 06/26/2025 CBC W/DIF F absolute basophils 0.0 10'3/ uL 0.0-0. 3 Not Available [facility] (Lab) [address], [place], [address], 06/27/2025 04:29:05 06/26/20 25 06/26/2025 CBC W/DIF F absolute immature granulocytes 0.1 10'3/ uL 0.00-0 .10 Refer ence range s for nonbi nary/ inter sex or unspe cifie d gende r patie nts have not been estab lishe d. [facility]as e [facility] for range s estab lishe d for cisge nder patie nts and evalu ate in the clini patrice kristal xt of the indiv idual patie nt: https ://la and book. nm.or g/gen derx Not Available [facility] (Lab) [address], [place], [address], 06/27/2025 04:29:05 06/26/20 25 06/26/2025 URIC ACID uric acid 4.8 mg/dL 2.3-6. 6 Not Available [facility] (Lab) [address] [place], [address], 06/27/2025 04:29:06 06/26/20 25 06/26/2025 CMP(C OMPRE HENSI VE METAB OLIC PANEL ) sodium 138 mmol/ L 133-14 6 Not Available [facility] (Lab) [address] [place], [address], 06/27/2025 04:29:06 06/26/20 25 06/26/2025 CMP(C OMPRE HENSI VE METAB OLIC PANEL ) potassium 4.0 mmol/ L 3.5-5. 1 Not Available [facility] (Lab) [address], [place], [address], 06/27/2025 04:29:06 06/26/20 25 06/26/2025 CMP(C OMPRE HENSI VE METAB OLIC PANEL ) chloride 103 mmol/ L 98-107 Not Available [facility] (Lab) [address], [place], [address], 06/27/2025 04:29:06 06/26/20 25 06/26/2025 CMP(C OMPRE HENSI VE METAB OLIC PANEL ) carbon dioxide 26 mmol/ L 21-31 Not Available [facility] (Lab) [address], [place], [address], 06/27/2025 04:29:06 06/26/20 25 06/26/2025 CMP(C OMPRE HENSI VE METAB OLIC PANEL ) anion gap 9 mmol/ L 4-13 Not Available [facility] (Lab) [address], [place], [address], 06/27/2025 04:29:06 06/26/20 25 06/26/2025 CMP(C OMPRE HENSI VE METAB OLIC PANEL ) blood urea nitrogen 7 mg/dL 7-25 Not Available [facility] (Lab) [address], [place], [address], 06/27/2025 04:29:06 06/26/20 25 06/26/2025 CMP(C OMPRE HENSI VE METAB OLIC PANEL ) creatinine 0.66 mg/dL 0.60-1 .30 Not Available [facility] (Lab) [address], [place], [address], 06/27/2025 04:29:06 06/26/2006/26/2025 CMP(C OMPRE HENSI VE METAB OLIC PANEL ) egfrcr (CKD-epi 2020) >90 mL/mi n/1.7 3_m2 >=60 Not Available [facility] (Lab) [address], [place], [address], 06/27/2025 04:29:06 06/26/20 25 06/26/2025 CMP(C OMPRE HENSI VE METAB OLIC PANEL ) calcium 9.0 mg/dL 8.3-10 .5 Not Available [facility] (Lab) [address], [place], [address], 06/27/2025 04:29:06 06/26/20 25 06/26/2025 CMP(C OMPRE HENSI VE METAB OLIC PANEL ) glucose 74 mg/dL 70-100 Not Available [facility] (Lab) [address], [place], [address], 06/27/2025 04:29:06 06/26/20 25 06/26/2025 CMP(C OMPRE HENSI VE METAB OLIC PANEL ) protein, total 6.1 g/dL 6.4-8. 3 low Not Available [facility] (Lab) [address] [place], [address], 06/27/2025 04:29:06 06/26/20 25 06/26/2025 CMP(C OMPRE HENSI VE METAB OLIC PANEL ) albumin 3.3 g/dL 3.5-5. 0 low Not Available [facility] (Lab) [address] [place], [address], 06/27/2025 04:29:06 06/26/20 25 06/26/2025 CMP(C OMPRE HENSI VE METAB OLIC PANEL ) ALT 36 units /L 9-43 Not Available [facility] (Lab) [address] [place], [address], 06/27/2025 04:29:06 06/26/20 25 06/26/2025 CMP(C OMPRE HENSI VE METAB OLIC PANEL ) alkaline phosphatase 131 units /L 34-104 high Not Available [facility] (Lab) [address] [place], [address], 06/27/2025 04:29:06 06/26/20 25 06/26/2025 CMP(C OMPRE HENSI VE METAB OLIC PANEL ) AST 20 units /L 13-39 Not Available [facility] (Lab) [address], [place], [address], 06/27/2025 04:29:06 06/26/20 25 06/26/2025 CMP(C OMPRE HENSI VE METAB OLIC PANEL ) bilirubin, total 0.3 mg/dL 0.2-1. 2 Not Available [facility] (Lab) [address], [place], [address], 06/27/2025 04:29:06 07/10/20 25 07/10/2025 CULTU RE: GROUP B STREP SCREE N, REFLE X SUSCE PTIBI LITY result report SEE RESULT S BELOW Test: Cultu re: Group B Strep , Refle x Susce ptibi lity ([facility] ) Speci men Sourc e: Vagin a/Rec fernando Speci men Type: Vagin al/Re ctal Speci men Date: 07/10 1436 Resul t Date: 2024 1404 Resul t Statu s: Final resul t Abnor mal: No Resul ting Lab: [facility] [address] [facility] [address] Tel: CULTU RE ----- ----- ----- --- No Group B strep isola ruy at 2 days (bailee ctive broth enhan cemen t) Not Available [facility] (Lab) [address], [place], [address], 07/13/2025 15:08:33 02/07/20 25 02/06/2025 US, opal lemos, nucha l trans lucen cy No observ ation record ed. [email or web address] [address], [place], [address], 02/06/2025 17:26:10 02/07/20 25 02/06/2025 US, obste tric, follo w-up No observ ation record ed. [email or web address] Vivi [address], , [address], 02/07/2025 11:49:39 03/27/20 25 03/27/2025 US, obste tric, 2nd or 3rd trime ster No observ ation record ed. [email or web address] [address], [place], [address], 03/27/2025 16:50:03 03/27/20 25 03/27/2025 US, obste tric, 2nd or 3rd trime ster No observ ation record ed. [email or web address] Vivi [address], , [address], 04/01/2025 20:55:55 04/24/20 25 04/24/2025 US, obste tric, follo w-up No observ ation record ed. [email or web address] [address], [place], [address], 04/24/2025 18:50:20 04/24/20 25 04/24/2025 US, obste tric, follo w-up No observ ation record ed. [email or web address] Vivi [address], , [address], 05/02/2025 18:12:06 05/05/20 25 05/05/2025 US, obste tric, limit ed No observ ation record ed. [address], [place], [address], 05/08/2025 11:23:32 05/05/20 25 05/05/2025 US, obste tric, limit ed No observ ation record ed. [address], [place], [address], 05/08/2025 11:23:15 05/06/20 25 05/05/2025 non-s tress test No observ ation record ed. [facility] [address], [place], [address], 05/14/2025 16:17:57 06/12/2006/12/2025 US, obste tric, follo w-up No observ ation record ed. [email or web address] [address], [place], [address], 06/12/2025 13:37:49 06/12/2006/12/2025 US, obste tric, follo w-up No observ ation record ed. [email or web address] Vivi [address], , [address], 06/14/2025 12:40:46 06/26/2006/26/2025 non-s tress test No observ ation record ed. [email or web address] [address], [place], [address], 06/26/2025 17:40:02 06/26/20 non-s tress test No observ ation record ed. [email or web address] [address], [place], [address], 06/26/2025 17:40:25 07/03/2007/03/2025 US, obsthelena tric, bioph ysica l profi le + non-s tress test No observ ation record ed. [email or web address] [address], [place], [address], 07/03/2025 10:21:51 07/03/2007/03/2025 US, obste tric, bioph ysica l profi le + non-s tress test No observ ation record ed. [email or web address] Vivi [address], , [address], 07/03/2025 10:36:03 07/03/2007/03/2025 non-s tress test No observ ation record ed. [email or web address] [address], [place], [address], 07/03/2025 17:34:00 07/03/20 non-s tress test No observ ation record ed. [address], [place], [address], 07/03/2025 16:02:31 07/10/2007/10/2025 US, obste tric, follo w-up No observ ation record ed. [email or web address] Trinidad [address], , [address], 07/10/2025 11:53:53 07/10/2007/10/2025 US, obste tric, follo w-up No observ ation record ed. [facility] [address], [place], [address], 07/10/2025 13:24:28 07/10/2007/10/2025 US, obsthelena tric, bioph ysica l profi le + non-s tress test No observ ation record ed. [facility] [address], [place], [address], 07/10/2025 13:24:41 07/10/2007/10/2025 non-s tress test No observ ation record ed. [address], [place], [address], 07/10/2025 16:54:42 07/10/20 non-s tress test No observ ation record ed. [address], [place], [address], 07/10/2025 16:55:51 07/17/2007/17/2025 non-s tress test No observ ation record ed. FELICITY [address], [place], [address], 07/19/2025 11:50:49 07/17/20 non-s tress test No observ ation record ed. [address], [place], [address], 07/17/2025 10:56:47 07/17/2007/17/2025 US, obste tric, bioph ysica l profi le + non-s tress test No observ ation record ed. [email or web address] [address], [place], [address], 07/17/2025 13:24:17 07/17/2007/17/2025 US, obste tric, bioph ysica l profi le + non-s tress test No observ ation record ed. [email or web address] Vivi [address], , [address], 07/17/2025 11:37:56 07/24/2007/24/2025 US, obste tric, bioph ysica l profi le + non-s tress test No observ ation record ed. [email or web address] Vivi [address], , [address], 07/24/2025 11:16:54 07/24/2007/24/2025 US, obste tric, bioph ysica l profi le + non-s tress test No observ ation record ed. bertha [address], [place], [address], 07/24/2025 18:17:48 07/24/2007/24/2025 non-s tress test No observ ation record ed. [facility] [address], [place], [address], 07/24/2025 18:19:09 07/24/20 25 non-s tress test No observ ation record ed. [email or web address] [address], [place], [address], 07/24/2025 16:00:08 Result Notes None recorded. Problems Name Problem SNOMED Code Status Onset Date Resolution Date Notes Provider Name and Address Organization Details Recorded Time Pregnanc y test negative 103578429 Completed 201409/02/2020 Pregnanc y examinat ion or test, negative result;R ecorded Elsewher e: No Locat ion: [facility] S ource: [employer]ter elena: N Practi ce ID: 0001 Grabiel lable Time: 03:15:00 PM Beverley lopez, [facility] 0 17:56:19 Obesity [id number] Completed 201409/03/2020 Obesity, unspecif ied;Prac bronson ID: 0001 Beverley lopez, [facility] 0 14:20:47 Speciali zed medical examinat ion Completed 201409/02/2020 Routine gynecolo gical examinat ion;Prac bronson ID: 0001 Beverley lopez, [facility] 0 17:57:40 Screenin g for malignan t neoplasm of cervix Completed 201409/02/2020 Pap Smear;Pr actice ID: 0001 Beverley lopez, [facility] 0 17:56:38 Educatio n Completed 201409/02/2020 Family planning ;Recorde d Elsewher e: No Locat ion: [facility] S ource: [employer] elena: N Practi ce ID: 0001 Grabiel lable Time: 04:00:00 PM Beverley lopez [facility] 0 17:55:08 Female infertil ity [id number] Completed 201410/17/2020 Infertil nadya, female, of unspecif ied origin;P ractice ID: 0001 Beverley Sun jessica, [facility] 1 10:55:45 Body mass index 30+ - obesity 512400542 Completed 201510/17/2020 Body mass index (BMI) 39.0-39. 9, adult;Re corded Elsewher e: No Locat ion: [facility] S ource: [employer] elena: N Practi ce ID: 0001 Grabiel lable Time: 11:00:00 AM Beverley Sun jessica, [facility] 1 10:55:40 Syncope and collapse [id number] Completed 201510/17/2020 Syncope and collapse ;Recorde d Elsewher e: No Locat ion: [facility] S ource: [employer] elena: N Practi ce ID: 0001 Grabiel lable Time: 10:30:00 AM Beverley Sun jessica, [facility] 1 10:56:12 Gestatio n less than 9 weeks [id number] Completed 201509/02/2020 Less than 8 weeks gestatio n of pregnanc y;Practi ce ID: 0001 Beverley lopez, [facility] 0 17:55:27 Pregnanc y, childbir th and puerperi um finding Completed 201510/17/2020 Encntr for suprvsn of normal first preg, first trimeste r;Practi ce ID: 0001 Beverley lopez, [facility] 1 10:55:59 Gestatio n period, 12 weeks [id number] Completed 201509/02/2020 12 weeks gestatio n of pregnanc y;Practi ce ID: 0001 Beverley Dos Santostz jessica, [facility] 0 17:55:30 Pregnanc y, childbir th and puerperi um finding Completed 201509/02/2020 Encntr for suprvsn of normal first preg, second trimeste r;Practi ce ID: 0001 Beverley Sun jessica, [facility] 0 17:56:27 Gestatio n period, 32 weeks [id number] Completed 201509/02/2020 32 weeks gestatio n of pregnanc y;Practi ce ID: 0001 Beverley Corinne jessica, [facility] 0 17:55:35 Pregnanc y, childbir th and puerperi um finding Completed 201509/03/2020 Encounte r for supervis ion of normal first pregnanc y, third trimeste r;Record ed Elsewher e: No Locat ion: [facility] S ource: [employer] elena: N Practi ce ID: 0001 Grabiel lable Time: 05:30:00 PM Beverley Sun jessica, [facility] 0 14:20:36 Gestatio n period, 33 weeks [id number] Completed 201509/02/2020 33 weeks gestatio n of pregnanc y;Record ed Elsewher e: No Locat ion: [facility] S ource: [employer] elena: N Practi ce ID: 0001 Grabiel lable Time: 09:00:00 AM Beverley Corinne jessica, [facility] 0 17:55:39 Normal pregnanc y in multigra geneva [id number] Completed 201509/02/2020 Encounte r for suprvsn of normal pregnanc y, third trimeste r;Practi ce ID: 0001 Beverley Sun jessica, [facility] 0 17:56:11 Gestatio n period, 34 weeks [id number] Completed 201509/02/2020 34 weeks gestatio n of pregnanc y;Practi ce ID: 0001 Beverley lopez, [facility] 0 17:55:42 Pregnanc y-induce d hyperten tonya Completed 201503/27/2021 Gestatio nal htn w/o signific ant proteinu che, third trimeste r;Record ed Elsewher e: No Locat ion: Sally malik [facility] S ource: E[facility] [employer] elena: N Practi ce ID: 0001 Grabiel lable Time: 03:00:00 PM Beverley lopez, [facility] 1 16:36:34 Gestatio n period, 36 weeks [id number] Completed 201509/02/2020 36 weeks gestatio n of pregnanc y;Practi ce ID: 0001 Beverley lopez, [facility] 0 17:55:48 Single live from singleto n pregnanc y [id number] Completed 201509/03/2020 Single live ;Pr actice ID: 0001 Beverley lopez, [facility] 0 14:20:54 Gestatio n period, 37 weeks [id number] Completed 201509/02/2020 37 weeks gestatio n of pregnanc y;Practi ce ID: 0001 Beverley lopez, [facility] 0 17:55:50 Pregnanc y-induce d hyperten tonya Completed 201509/02/2020 Gestatio nal htn w/o signific ant proteinu che, unsp trimeste r;Practi ce ID: 0001 Beverley lopez, [facility] 0 17:57:29 Hyperten sive disorder [id number] Completed 201503/27/2021 Benign hyperten tonya;Rec orded Elsewher e: No Locat ion: [facility] S ource: EHR Yard Spotter elena: N Practi ce ID: 0001 Grabiel lable Time: 10:30:00 AM Beverley Corinne jessica [facility] 5 19:18:30 Non-prot einuric hyperten tonya of pregnanc y [id number] Completed 201510/17/2020 Gestatnl htn without signific ant protein, comp the puerp;Pr actice ID: 0001 Beverley Sun jessica, [facility] 1 10:56:02 Lochia finding Completed 201510/17/2020 Encounte r for routine postpart um follow-u p;Practi ce ID: 0001 Beverley Sun jessica, [facility] [address] 10:55:[address] [employer] Completed 201809/02/2020 Encntr for fitness consultant exam (general ) (routine ) w/o abn findings ;Recorde d Elsewher e: No Locat ion: Liviabhaveshmario alberto malik [facility]: N Practi ce ID: 0001 Grabiel lable Time: 10:30:00 AM Beverley Sun jessica [facility] 0 17:56:45 Pregnanc y detectio n examinat ion Completed 201809/02/2020 Encounte r for pregnanc y test, result positive ;Practic e ID: 0001 Beverley Sun jessica [facility] 0 17:56:17 Uterine size for dates discrepa ncy Completed 201810/17/2020 Uterine size-malia e discrepa ncy, first trimeste r;Practi ce ID: 0001 Beverley Sun [facility] 1 10:56:17 Secondar y amenorrh ea [id number] Completed 201810/17/2020 Secondar y amenorrh ea;Recor ded Elsewher e: No Locat ion: Sally malik [facility] S ource: [employer] elena: N Practi ce ID: 0001 Grabiel lable Time: 10:30:00 AM Beverley lopez, [facility] 1 10:56:05 Infectio n screenin g Completed 201809/02/2020 Encounte r for screenin g for oth infec/pa rastc diseases ;Recorde d Elsewher e: No Locat ion: Sally malik [facility] S ource: [facility] Yard Spotter elena: N Practi ce ID: 0001 Grabiel lable Time: 10:30:00 AM Beverley Sun jessica, [facility] 0 17:56:03 Syphilis test finding [id number] Completed 201809/03/2020 Encntr screen for infectio ns w sexl mode of transmis s;Record ed Elsewher e: No Locat ion: Sally malik [facility]: N Practi ce ID: [id number] Grabiel lable Time: 10:30:00 AM Beverley lopez, [facility] 0 14:20:58 Finding of viabilit y of pregnanc y [id number] Completed 201809/02/2020 Pregnanc y w inconclu sive viabilit y, unsp;Pra ctice ID: 0001 Beverley Sun jessica, [facility] 0 17:55:21 Finding of contents of cervix [id number] Completed 201809/02/2020 Weeks of gestatio n of pregnanc y not specifie d;Practi ce ID: 0001 Beverley Sun jessica, [facility] 0 17:55:14 Threaten ed miscarri age [id number] Completed 201810/17/2020 Threaten ed ;Recorde d Elsewher e: No Locat ion: Sally malik [facility] S ource: [facility] [employer] elena: N Practi ce ID: [id number] Grabiel lable Time: 12:30:00 PM Beverley lopez, [facility] 1 10:56:15 Gestatio n period, 8 weeks [id number] Completed 201809/02/2020 8 weeks gestatio n of pregnanc y;Practi ce ID: 0001 Beverley lopez, [facility] 0 17:55:55 Rubella screenin g status [id number] Completed 201809/02/2020 Encounte r for antenata l screenin g, unspecif ied;Benitez rded Elsewher e: No Locat ion: Sally malik [facility] S ource: [facility] [employer] elena: N Practi ce ID: 0001 Grabiel lable Time: 04:30:00 PM Beverley lopez [facility] 0 17:56:34 Antenata l screenin g Completed 201809/02/2020 Encounte r for antenata l screenin g for nuchal transluc ency;Pra ctice ID: [id number] Beverley lopez, [facility] 0 17:57:11 Antenata l screenin g for malforma tion Completed 201809/02/2020 Encounte r for antenata l screenin g for malforma tions;Re corded Elsewher e: No Locat ion: Sally malik [facility] S ource: EHR Yard Spotter elena: N Practi ce ID: 0001 Grabiel lable Time: 08:15:00 AM Beverley lopez, [facility] 0 17:57:13 Gestatio n period, 29 weeks [id number] Completed 201809/02/2020 29 weeks gestatio n of pregnanc y;Record ed Elsewher e: No Locat ion: [facility] S ource: EHR Yard Spotter elena: N Practi ce ID: 0001 Grabiel lable Time: 03:45:00 PM Beverley lopez [facility] 0 17:55:32 Clinical finding Completed 201810/17/2020 Tachycar rishi, unspecif ied;Benitez rded Elsewher e: No Locat ion: Liviabhaveshmario alberto malik [facility] S ource: EHR Yard Spotter elena: N Practi ce ID: 0001 Grabiel lable Time: 11:15:00 AM Beverley lopez, [facility] 1 10:55:44 Clinical finding Completed 201809/02/2020 Obesity, unspecif ied;Benitez rded Elsewher e: No Locat ion: Liviaella helena [facility] S ource: EHR Yard Spotter elena: N Practi ce ID: 0001 Grabiel lable Time: 03:00:00 PM Beverley lopez, [facility] 0 17:55:24 Finding of body mass index 613854171 Completed 201809/02/2020 Body mass index (BMI) 40.0-44. 9, adult;Re corded Elsewher e: No Locat ion: Liviabhaveshmario alberto malik [facility] S ource: EHR Yard Spotter elena: N Practi ce ID: 0001 Grabiel lable Time: 02:00:00 PM Beverley lopez, [facility] 0 17:56:59 Gestatio n period, 35 weeks 21441827 Completed 201809/02/2020 35 weeks gestatio n of pregnanc y;Record ed Elsewher e: No Locat ion: Sally malik [facility] S ource: EHR Yard Spotter elena: N Practi ce ID: 0001 Grabiel lable Time: 02:00:00 PM Beverley Sun jessica [facility] 0 17:55:44 Severe obesity complica ting pregnanc y [id number] 9748701 Completed 201810/17/2020 Obesity complica ting pregnanc y, third trimeste r;Record ed Elsewher e: No Locat ion: Sally helena [facility] S ource: EHR Yard Spotter elena: N Practi ce ID: 0001 Grabiel lable Time: 03:00:00 PM Beverley Sun jessica, [facility] 10:56:10 Gestatio n period, 38 weeks 53638220 Completed 201809/02/2020 38 weeks gestatio n of pregnanc y;Record ed Elsewher e: No Locat ion: [facility] S ource: EHR Yard Spotter elena: N Practi ce ID: 0001 Grabiel lable Time: 11:00:00 AM Beverley Corinne lopez, [facility] 0 17:55:53 Hyperten tonya in the obstetri c context Completed 201810/17/2020 Pre-exis ting essentia l htn comp pregnanc y, third trimeste r;Practi ce ID: 0001 Beverley lopez, [facility] 10:55:52 Attentio n deficit hyperact ivity disorder 617228102 Active 2024 stopped taking medicati on when found out Beverley lopez, [facility] 19:38:30 Mixed anxiety and depressi ve disorder 082815983 Active 2024 Beverley lopez, [facility] 19:37:00 Hyperten sive disorder 27657631 Active 2024 Medina Whitaker CNM [address], [place], [address], [facility] 17:26:39 Headache 30005629 Active 2024 Beverley lopez, [facility] 19:37:14 Pregnanc y 19702197 Active 2024 Beverley lopez, [facility] 19:36:35 Mixed anxiety and depressi ve disorder 608618235 Active 2024 Beverley lopez, [facility] 19:37:00 Headache 64156121 Active 2024 Beverley lopze [facility] 19:37:14 Past pregnanc y history of gestatio nal hyperten tonya 159700406 Active 2024 2016 pregnanc y start bASA x 2 daily Medina Whitaker CNM [address], [place], [address], [facility] 17:26:14 Attentio n deficit hyperact ivity disorder 033909583 Active 2024 stopped taking medicati on when found out Beverley lopez [facility] 19:38:30 Obesity 333968821 Active 2024 antenata l [facility] @ [facility] Sonya Lester [facility] 5 20:55:07 Hyperten tonya AND/OR vomiting complica ting pregnanc y childbir th AND/OR puerperi um 199537602 Active 2024 Medina Whitaker CNM [address], [place], [address], [facility] 5 15:51:32 Notes:Encounter for antenata l screening of mother Recorded Elsewhere: No Location: [facility] Source: EHR Chronic: N Practice ID: [id number] Billable Time: 10:30:00 AM Encounter for screening of mother Practice ID: [id number] Encounter for screening of mother Recorded Elsewhere: No Location: [facility] Source: EHR Chronic: N Practice ID: [id number] Billable Time: 10:30:00 AM Encounter for screening of mother Practice ID: [id number] Problem Notes None recorded. Procedures Surgical History Date Name Laterality Status Provider Name and Address Organization Details Recorded Time Date of Last Pap Smear completed Beverley Sun [facility] 02/06/2025 08:37:03 1 extraction of wisdom tooth completed Beverley Sun [facility] 02/06/2025 19:33:27 Imaging Results None recorded. [...] Prescrib ed Elsewher e: No Locat ion: [facility] odify By: geovanny solorzano DateTime : 08/25/20 08:06:19 AM Not Available [...] Prescrib ed Elsewher e: No Locat ion: [facility] odify By: [email or web address] solorzano DateTime : 10/26/19 [...] Prescrib camilo Fritz e: No Locat ion: [facility] odify By: [email or web address] z Encoun ter DateTime : 03/31/20 09:00:00 AM Not [...] Blayneher e: No Locat ion: Sally malik [facility] odify By: belem haley DateTime : [...] Address Organization Details Last Updated DateTime 07/17/2025 037715.27163 g 130/78 mm[Hg] Barbie Coronado [facility] 07/17/2025 10:53:15 Social History Question Answer Notes LastModified by Organizat ion Details LastModified Time Tobacco Smoking Status Never Smoker Beverley lopez, [facility] 03/21/2020 13:16:23 Do You Have An Advance Directive? No Information n ot available 01/07/2025 If You Are , What Was Your Level Of Alcohol Consumption Prior To ? Occasional [email or web address] Information not available 10/17/2020 Are You Blind Or Do You Have Difficulty Seeing? No Information n ot available 03/27/2021 What Is Your Level Of Caffeine Consumption? Occasional [email or web address] Information not available 10/17/2020 In The 14 Days Before Symptom Onset, Have You Had Close Contact With A Laboratory-confirm ed COVID-19 While That Case Was Ill? No [email or web address] Information n ot available 03/27/2021 In The 14 Days Before Symptom Onset, Have You Had Close Contact With A Person Who Is Under Investigation For COVID-19 While That Person Was Ill? No [email or web address] Information not available 03/27/2021 Have You Been To An Area Known To Be High Risk For COVID-19? No [email or web address] Information not available 03/27/2021 Are You Deaf Or Do You Have Serious Difficulty Hearing? No [email or web address] Information not available 03/27/2021 What Type Of Diet Are You Following? REGULAR [email or web address] Information n ot available 03/27/2021 What Is The Highest Grade Or Level Of School You Have Completed Or The Highest Degree You Have Received? [id number] Information not available 01/07/2025 What Was The Date Of Your Most Recent Tobacco Screening? 02/06/2025 [email or web address] Information not available 02/06/2025 Have You Ever Been Counseled For Unhealthy Alcohol Use? No [email or web address] Information not available 10/17/2020 Do You Use Protection During Sex? No Information not available 01/07/2025 Do You Use Your Seat Belt Or Car Seat Routinely? Yes [email or web address] Information not available 03/27/2021 Do You Have Smoke And Carbon Monoxide Detectors In Your Home? Yes [email or web address] Information not available 03/27/2021 How Much Tobacco Do You Smoke? No [email or web address] Information not available 03/21/2020 Do You Use Sunscreen Routinely? Yes [email or web address] Information not available 03/27/2021 Has Tobacco Cessation Counseling Been Provided? No [email or web address] Information not available 10/17/2020 Have You Used IV Drugs? No Information not available 01/07/2025 Do You Have Difficulty Walking Or Climbing Stairs? No [email or web address] Information not available 02/06/2025 Sex: Unknown Functional Status Question Answer Note LastModified by Organizat ion Details LastModified Time Do you use any illicit or recreational drugs? No [email or web address] Information not available 10/17/2020 Do you or have you ever used any other forms of tobacco or nicotine? No Information not available 10/17/2020 What is your level of alcohol consumption? None [email or web address] Information not available 02/06/2025 Do you or have you ever used smokeless tobacco? Never used smokeless tobacco Information not available 03/21/2020 Are you able to walk independently without assistance or assistive devices? YESWOREST [email or web address] Information not available 03/27/2021 Are you able to care for yourself independently? Yes [email or web address] Information not available 02/06/2025 Do you have difficulty dressing, bathing, grooming, or toileting? No [email or web address] Information not available 02/06/2025 Do you or have you ever used e-cigarettes or vape? Never used electronic cigarettes [email or web address] Information not available 03/21/2020 What is your exercise level? Occasional [email or web address] Information not available 03/21/2020 Mental Status Question Answer Note LastModified by Organization D etails LastModified Time Do you feel stressed (tense, restless, nervous, or anxious, or unable to sleep at night)? [id number] [email or web address] Information not available 03/27/2021 Family History Relationship Description Onset Age of this Age Resolved Age Notes LastModified by Organization Details LastModified Time Mother Disorder of thyroid gland [email or web address] Not available 03/21 13:15:49 Father Diabetes mellitus [email or web address] Not available 03/21 13:16:06 Maternal Grandfather Diabetes mellitus [email or web address] Not available 03/21 13:16:06 Maternal Grandmother Malignant [...] ICD10 Code Diagnosis IMO Codes Diagnosis Note [id number] [facility] [address],[facility] [place] [address] 06/26/2025 14:50:38 06/26/2025 15:53:19 Gestation period, 33 weeks 23477273 Z3A.33 8814737 [id number] Medina Whitaker CNM [place] [address] [address] 06/26/2025 15:32:15 06/26/2025 17:47:00 Hypertension AND/OR vomiting complicating childbirth AND/OR puerperium 865023666 O13.3 5948159 [id number] Lobito Salinas MD [place] [address],[facility] [place] [address] 07/03/2025 09:24:44 07/03/2025 10:27:55 -induced hypertension 27934761 O13.3 Z3A.34 267030 [id number] Medina Whitaker [facility] [address] [address] 07/03/2025 09:24:58 07/03/2025 16:17:39 Maternal obesity complicating , childbirth and the puerperium, antepartum 6571705279 07 O99.210 9349900706 rf phentermin e, ok for one more refill then must take break [id number] Medina Whitaker [facility] [address] [place] [address] 07/03/2025 09:25:15 07/03/2025 11:45:20 Gestation period, 34 weeks 31697079 Z3A.34 8044381 [id number] Lobito Salinas MD [place] [address] [address] 07/10/2025 09:26:17 07/10/2025 10:22:03 Chronic hypertension complicating AND/OR reason for care during 53612077 O10.919 O36.60X0 O99.210 Z3A.35 69329165 [id number] Medina Whitaker [place] [address] [place] [address] 07/10/2025 09:27:40 07/10/2025 17:20:31 Maternal obesity complicating , childbirth and the puerperium, antepartum 3252744168 07 O99.210 8101006624 rf phentermin e, ok for one more refill then must take break [id number] [facility] [address] [place] [address] 07/10/2025 09:27:58 07/10/2025 12:08:57 Gestation period, 35 weeks 09660235 Z3A.35 7014073 [id number] Lobito Salinas MD [place] [address] [place] [address] 07/17/2025 09:20:51 07/17/2025 11:18:20 -induced hypertension 44859607 O13.3 O99.213 Z3A.36 941345 [id number] MIKE OROZCO MD [place] [address] [address] 07/17/2025 09:21:09 07/17/2025 11:18:15 Maternal obesity complicating , childbirth and the puerperium, antepartum 2021367141 07 O99.210 0761222173 [id number] Medina Whitaker CNM [place] [address] [address] 07/17/2025 09:21:21 07/17/2025 11:41:53 Gestation period, 36 weeks 40878361 Z3A.36 4234903 Health Concerns Section Related Observation LastModified by Organization Detai ls LastModified Time None Recorded Concern Status LastModified by Organization Details LastModified Time None Recorded Payers Encounter Date Sequence Insurance Name Policy Number Policy [place] Covered Member ID Ventura Member ID Guarantor Name 07/17/2025 1 [facility] [id number] Apolinar Rivers [id number] Whit Rivers Notes Date Note Type Note Provider Name and Address Organization Details Recorded Time 07/17/2025 text/html Generic HPI TemplateReported by Patient Medina Whitaker CNM [address], [place], [address], [facility] 07/17/2025 11:30:47 OBGyn Episode Ob Episode Information Episode Created Date Number of Fetuses Patient Bloodtype Patient rh Status Prepregnancy Weight lbs Domestic Partner Domestic Partner Phone Father Name Motel Manager Status 02/07/20 25 1 O Positive 291 Apolinar Rivers OPEN Fetus Data First Name Last Name Admitted to NICU Weight (g) Sex Living Outcome Pediatric Complications Fetus ID Race Codes Race Delivery Type [id number] Problems Problem Notes Problem Name Start Date End Date Resolution Snomed Code Not e Attention deficit hyperactivity disorder 02/06/2025 502409041 stopped taking medication when found out Past history of gestational hypertension 02/06/2025 326007866 2015 pregnancys tart bASA x 2 daily Obesity 02/07/2025 316666040 testing @ 34wks Headache 02/06/2025 99333466 Mixed anxiety and depressive disorder 02/06/2025 292013076 Hypertension AND/OR vomiting complicating childbirth AND/OR puerperium 06/26/2025 004626116 Alfa Calculation Initial Alfa Date Initial Exam [...] Weight in lbs Pre/Post Dialysis Refused Weight 289.897760872360 BP Diastolic BP Location Tested BP Systolic [...] Weight in lbs Pre/Post Dialysis Refused Weight 294.617161030539 BP Diastolic BP Location Tested BP Systolic [...] Type Weight in lbs Pre/Post Dialysis Refused 297.437565689424 BP Diastolic BP Location Tested BP Systolic [...] Type Weight in lbs Pre/Post Dialysis Refused 302.931338355947 BP Diastolic BP Location Tested BP Systolic [...] Weight in lbs Pre/Post Dialysis Refused Weight 305.328213174791 BP Diastolic BP Location Tested BP Systolic [...] Weight in lbs Pre/Post Dialysis Refused Weight 306.718724898850 BP Diastolic BP Location Tested BP Systolic [...] Weight in lbs Pre/Post Dialysis Refused Weight 305.727521892491 BP Diastolic BP Location Tested BP Systolic [...] Weight in lbs Pre/Post Dialysis Refused Weight 307.300298056895 BP Diastolic BP Location Tested BP Systolic [...] Type Weight in lbs Pre/Post Dialysis Refused 308.395003985953 BP Diastolic BP Location Tested BP Systolic BP Type 81 L arm 132 sitting Fetus Heart Rate Present Fetus Movement A Yes Comments Flowsheet Date 07/03/2025 Bunn Score Blood Edema Fundus Height Fundus Units Glucose Ketones Leukocytes Nitrite Labor Signs Protein Cervic Dilation Cervic Effacement Cervic Station Type Weight in lbs Pre/Post Dialysis Refused 308.658251504505 BP Diastolic BP Location Tested BP Systolic [...] Weight in lbs Pre/Post Dialysis Refused Weight 310.815564400297 BP Diastolic BP Location Tested BP Systolic BP Type 85 L arm 128 sitting Fetus Heart Rate Present Fetus Movement A Yes Comments Flowsheet Date 07/10/2025 Bunn Score Blood Edema Fundus Height Fundus Units Glucose Ketones Leukocytes Nitrite Labor Signs Protein Cervic Dilation Cervic Effacement Cervic Station Type Weight in lbs Pre/Post Dialysis Refused 310.134030226012 BP Diastolic BP Location Tested BP Systolic [...] Type Weight in lbs Pre/Post Dialysis Refused 311.328095798616 BP Diastolic BP Location Tested BP Systolic [...] Weight in lbs Pre/Post Dialysis Refused Weight 312.604721732199 BP Diastolic BP Location Tested BP Systolic BP Type 84 L arm 131 sitting Fetus Heart Rate Present Fetus Movement A Yes Comments Flowsheet Date 07/24/2025 Bunn Score Blood Edema Fundus Height Fundus Units Glucose Ketones Leukocytes Nitrite Labor Signs Protein Cervic Dilation Cervic Effacement Cervic Station 1cm 50% -2 Type Weight in lbs Pre/Post Dialysis Refused Weight 312.994095328312 BP Diastolic BP Location Tested BP Systolic [...]
--- OUTSIDE RECORDS SUMMARY | 2025-07-26 05:57 | XMS_ITS | Continuity of Care Document ---
Author Organization [facility] Address [address] [place] [address] Care Team Providers Care Kettle Cleaner Name Role Phone HA MORTON Primary Care [...] None recorde d. Imaging US, obstetr ic, follow- up 2024 025 [email or web address] [place], [facility] [address], [address], [place], [address], 06/13/2025 11:12:29 Medication Orders None recorde d. Patient TargetsNo targets recorded. Patient InstructionsNo instructions recorded. Reason for Referral None Reported. Results Created Date Observation Date Name Description Value Unit Range Abnormal Flag Note LastModifiedBy Organization Detail LastModifiedTime 02/15/2002/14/2025 [UNIT Y] ANEUP LOIDY NIPT fraction 3.9% normal Not Available [facility] [address], [place], [address], 02/14/2025 01:55:32 02/15/20 25 02/14/2025 [UNIT Y] ANEUP LOIDY NIPT 22Q11.2 microdeletio n LOW RISK <1 in 10,000 normal Not Available [facility] [address], [place], [address], 02/14/2025 01:55:32 02/15/20 25 02/14/2025 [UNIT Y] ANEUP LOIDY NIPT sex chromosome aneuploidy NOT DETECT ED normal Not Available [facility] [address], [place], [address], 02/14/2025 01:55:32 02/15/20 25 02/14/2025 [UNIT Y] ANEUP LOIDY NIPT monosomy X LOW RISK <1 in 10,000 normal Not Available [facility] [address], [place], [address], 02/14/2025 01:55:32 02/15/20 25 02/14/2025 [UNIT Y] ANEUP LOIDY NIPT trisomy 13 LOW RISK <1 in 10,000 normal Not Available [facility] [address], [place], [address], 02/14/2025 01:55:32 02/15/20 25 02/14/2025 [UNIT Y] ANEUP LOIDY NIPT trisomy 18 LOW RISK <1 in 10,000 normal Not Available [facility] [address], [place], [address], 02/14/2025 01:55:32 02/15/20 25 02/14/2025 [UNIT Y] ANEUP LOIDY NIPT trisomy 21 LOW RISK <1 in 10,000 normal Not Available [facility] [address], [place], [address], 02/14/2025 01:55:32 02/15/20 25 02/14/2025 [UNIT Y] ANEUP LOIDY NIPT sex MALE normal Not Available [facility] [address], [place], [address], 02/14/2025 01:55:32 02/15/20 25 02/14/2025 [UNIT Y] ANEUP LOIDY NIPT gestation SINGLE TON normal Not Available [facility] [address], [place], [address], 02/14/2025 01:55:32 02/15/20 25 02/14/2025 [UNIT Y] ANEUP LOIDY NIPT for detailed report, see pdf See PDF normal Not Available [facility] [address], [place], [address], 02/14/2025 01:55:32 02/18/20 25 02/17/2025 [UNIT Y] OTTO Islas sickle cell disease/beta -thalassemia /hemoglobino pathies carrier screen NEGATI VE normal Not Available [facility] [address], [place], [address], 02/17/2025 10:24:39 02/18/20 25 02/17/2025 [UNIT Y] OTTO Islas alpha-thalas semia carrier screen NEGATI VE normal Not Available [facility] [address], [place], [address], 02/17/2025 10:24:39 02/18/20 25 02/17/2025 [UNIT Y] OTTO LANGFORD Janel cystic fibrosis carrier screen NEGATI VE normal Not Available [facility] [address], [place], [address], 02/17/2025 10:24:39 02/18/20 25 02/17/2025 [UNIT Y] OTTO LANGFORD Janel spinal muscular atrophy carrier screen NEGATI VE 2 SMN1 copies , SNP not presen t normal Not Available [facility] [address], [place], [address], 02/17/2025 10:24:39 02/18/20 25 02/17/2025 [UNIT Y] OTTO LANGFORD Janel for detailed report, see pdf See PDF normal Not Available [facility] [address], [place], [address], 02/17/2025 10:24:39 02/07/20 25 02/06/2025 CBC W/DIF F WBC 12.0 10'3/ uL 3.5-10 .5 high Not Available [facility] (Lab) [address], [place], [address], 02/07/2025 13:12:55 02/07/20 25 02/06/2025 CBC W/DIF F RBC 4.52 10'6/ uL (based on docume nted legal sex) 3.80-5 .20 Not Available [facility] (Lab) [address], [place], [address], 02/07/2025 13:12:55 02/07/20 25 02/06/2025 CBC W/DIF F HGB 12.4 g/dL (based on docume nted legal sex) 11.6-1 5.4 Not Available [facility] (Lab) [address] , [place], [address], 02/07/2025 13:12:55 02/07/20 25 02/06/2025 CBC W/DIF F HCT 38.9 % (based on docume nted legal sex) 34.0-4 5.0 Not Available [facility] (Lab) [address], [place], [address], 02/07/2025 13:12:55 02/07/20 25 02/06/2025 CBC W/DIF F MCV 86.1 fL 80.0-9 9.0 Not Available [facility] (Lab) [address], [place], [address], 02/07/2025 13:12:55 02/07/20 25 02/06/2025 CBC W/DIF F MCH 27.4 pg 27.0-3 4.0 Not Available [facility] (Lab) [address], [place], [address], 02/07/2025 13:12:55 02/07/20 25 02/06/2025 CBC W/DIF F MCHC 31.9 g/dL 32.0-3 5.5 low Not Available [facility] (Lab) [address], [place], [address], 02/07/2025 13:12:55 02/07/20 25 02/06/2025 CBC W/DIF F RDW 12.9 % 11.0-1 5.0 Not Available [facility] (Lab) [address], [place], [address], 02/07/2025 13:12:55 02/07/20 25 02/06/2025 CBC W/DIF F plt 281 10'3/ uL 150-40 0 Not Available [facility] (Lab) [address] [place], [address], 02/07/2025 13:12:55 02/07/20 25 02/06/2025 CBC W/DIF F MPV 11.0 fL 8.8-12 .1 Not Available [facility] (Lab) [address] [place], [address], 02/07/2025 13:12:55 02/07/20 25 02/06/2025 CBC W/DIF F NRBC's 0.0 % 0.0 Not Available [facility] (Lab) [address] [facility], [place], [address], 02/07/2025 13:12:55 02/07/20 25 02/06/2025 CBC W/DIF F absolute NRBCs 0.0 10'3/ uL no refere nce range establ ished Not Available [facility] (Lab) [address] [facility], [place], [address], 02/07/2025 13:12:55 02/07/20 25 02/06/2025 CBC W/DIF F neutrophils 72.5 % 34.0-7 3.0 Not Available [facility] (Lab) [address] [facility], [place], [address], 02/07/2025 13:12:55 02/07/20 25 02/06/2025 CBC W/DIF F lymphocytes 20.4 % 15.0-5 0.0 Not Available [facility] (Lab) [address] [facility], [place], [address], 02/07/2025 13:12:55 02/07/20 25 02/06/2025 CBC W/DIF F monocytes 5.9 % 1.0-15 .0 Not Available [facility] (Lab) [address] [facility], [place], [address], 02/07/2025 13:12:55 02/07/20 25 02/06/2025 CBC W/DIF F eosinophils 0.6 % 0.0-8. 0 Not Available [facility] (Lab) [address] [facility], [place], [address], 02/07/2025 13:12:55 02/07/20 25 02/06/2025 CBC W/DIF F basophils 0.3 % 0.0-2. 0 Not Available [facility] (Lab) [address] [facility], [place], [address], 02/07/2025 13:12:55 02/07/2002/06/2025 CBC W/DIF F immature granulocytes 0.3 % no define d refere nce range Immat ure Granu locyt es (IG) repre sents autom ated enume ratio n of Metam yeloc ytes, Myelo cytes and Promy elocy shlomo when IG is < 5%. Blast s are not inclu ded in IG and repor ruy separ ately if prese nt. Not Available [facility] (Lab) [address] [facility], [place], [address], 02/07/2025 13:12:55 02/07/20 25 02/06/2025 CBC W/DIF F absolute neutrophils 8.7 10'3/ uL 1.5-8. 0 high Not Available [facility] (Lab) [address] [facility], [place], [address], 02/07/2025 13:12:55 02/07/20 25 02/06/2025 CBC W/DIF F absolute lymphocytes 2.4 10'3/ uL 1.0-4. 0 Not Available [facility] (Lab) [address] [facility], [place], [address], 02/07/2025 13:12:55 02/07/20 25 02/06/2025 CBC W/DIF F absolute monocytes 0.7 10'3/ uL 0.2-1. 0 Not Available [facility] (Lab) [address] [facility], [place], [address], 02/07/2025 13:12:55 02/07/20 25 02/06/2025 CBC W/DIF F absolute eosinophils 0.1 10'3/ uL 0.0-0. 6 Not Available [facility] (Lab) [address] [facility], [place], [address], 02/07/2025 13:12:55 02/07/20 25 02/06/2025 CBC W/DIF F absolute basophils 0.0 10'3/ uL 0.0-0. 3 Not Available [facility] (Lab) [address], [place], [address], 02/07/2025 13:12:55 02/07/2002/06/2025 CBC W/DIF F absolute [...] hyman book. nm.or g/gen derx Not Available [facility] (Lab) [address], [place], [address], 02/07/2025 13:12:55 02/07/2002/06/2025 HEPAT ITIS B SURFA CE ANTIG EN hepatitis B surface antigen Non-re active non-re active This assay was perfo rmed using [employer] ratio n reage nts and test kits. Value s obtai dextre with other assay metho ds or kits canno t be used inter lopez eably . Not Available [facility] (Lab) [address], [place], [address], 02/07/2025 13:12:55 02/07/2002/06/2025 HIV 1/2 ANTIG EN/AN TIBOD Y, REFLE X CONFI RMATI ON HIV antigen/anti body Nonrea ctive nonrea ctive HIV-1 antig en and HIV-1 /HIV- 2 antib odies were not detec ruy. No labor atory evide nce of HIV infec tion. Not Available [facility] (Lab) [address], [place], [address], 02/07/2025 13:12:56 02/07/2002/06/2025 HEPAT ITIS C ANTIB ANITA SCREE N, REFLE X TO CONFI RMATI ON hepatitis C antibody Non-re active non-re active Antib odies to HCV Not Detec ruy, does not exclu de the possi bilit y of expos ure to HCV. Not Available [facility] (Lab) [address], [place], [address], 02/07/2025 13:12:56 02/07/20 25 02/06/2025 RUBEL LA IGG ANTIB ANITA, QUANT rubella antibodies, IgG Reacti ve reacti ve Not Available [facility] (Lab) [address], [place], [address], 02/07/2025 13:12:56 02/07/20 25 02/06/2025 RUBEL LA IGG ANTIB ANITA, QUANT rubella antibodies, IgG quant 61.9 IU/mL >=10 Non-r eacti ve (Non- Immun e) <10 IU/mL React essie (Immu ne) > or = 10 IU/mL Not Available [facility] (Lab) [address], [place], [address], 02/07/2025 13:12:56 02/07/20 25 02/06/2025 TYPE/ RH/SC REEN ABO/Rh type O POS Not Available [facility] (Lab) [address] [facility], [place], [address], 02/07/2025 13:12:57 02/07/20 25 02/06/2025 TYPE/ RH/SC REEN antibody screen NEG Not Available [facility] (Lab) [address] [facility], [place], [address], 02/07/2025 13:12:57 02/07/20 25 02/06/2025 TYPE/ RH/SC REEN exp date 2024 23:59 Not Available [facility] (Lab) [address], [place], [address], 02/07/2025 13:12:57 02/07/20 25 02/06/2025 RPR SCREE N, REFLE X TITER /CONF IRMAT ION RPR qualitative Nonrea ctive nonrea ctive Not Available [facility] (Lab) [address] , [place], [address], 02/07/2025 13:12:57 02/07/20 25 02/06/2025 HEMOG LOBIN [...] >8.0% Actio n sugge sted Not Available [facility] (Lab) [address] , [place], [address], 02/07/2025 13:12:57 02/07/2002/06/2025 CULTU RE: URINE result report SEE RESULT S BELOW Test: Cultu re: Urine Speci men Sourc e: Urine - Clean Catch Speci men Type: Urine Speci men Date: 2024 1737 Resul t Date: 2024 0700 Resul t Statu s: Final resul t Abnor mal: No Resul ting Lab: [facility] [address] [facility] [address] Tel: CULTU RE ----- ----- ----- --- Cultu re resul t (>=3 organ isms prese nt) indic ates possi ble conta minat ion. Repea t cultu re if sympt oms indic ate. Not Available [facility] (Lab) [address] , [place], [address], 02/08/2025 08:03:32 02/07/20 25 02/06/2025 drug scree n, urine Amphetamines : negati ve Not Available [place] [address], [place], [address], 02/06/2025 18:30:19 02/07/20 25 02/06/2025 drug scree n, urine Cannabinoids : negati ve Not Available [place] [address], [place], [address], 02/06/2025 18:30:19 02/07/20 25 02/06/2025 drug scree n, urine Cocaine: negati ve Not Available [place] [address], [place], [address], 02/06/2025 18:30:19 02/07/20 25 02/06/2025 drug scree n, urine Opiates: negati ve Not Available [place] [address], [place], [address], 02/06/2025 18:30:19 02/07/20 25 02/06/2025 drug scree n, urine Phenocyclidi ne: negati ve Not Available [place] [address], [place], [address], 02/06/2025 18:30:19 02/07/20 25 02/06/2025 drug scree n, urine Barbiturates : negati ve Not Available [place] [address], [place], [address], 02/06/2025 18:30:19 02/07/20 25 02/06/2025 drug scree n, urine Benzodiazepi brayan: negati ve Not Available [place] [address], [place], [address], 02/06/2025 18:30:19 02/07/20 25 02/06/2025 drug scree n, urine Ethanol: negati ve Not Available [place] [address], [place], [address], 02/06/2025 18:30:19 02/07/20 25 02/06/2025 drug scree n, urine Hallucinogen s: negati ve Not Available [place] [address], [place], [address], 02/06/2025 18:30:19 02/07/20 25 02/06/2025 drug scree n, urine Inhalants: negati ve Not Available [place] [address], [place], [address], 02/06/2025 18:30:19 02/07/20 25 02/06/2025 drug scree n, urine Anabolic Steroids: negati ve Not Available [place] [address], [place], [address], 02/06/2025 18:30:19 02/07/20 25 02/06/2025 drug scree n, urine Other: negati ve Not Available [place] [address], [place], [address], 02/06/2025 18:30:19 05/15/20 25 05/15/2025 HEMOG LOBIN (HGB) HGB 10.9 g/dL (based on docume nted legal sex) 11.6-1 5.4 low Not Available [facility] (Lab) [address], [place], [address], 05/16/2025 09:55:38 05/15/20 25 05/15/2025 HEMAT OCRIT (HCT) HCT 35.7 % (based on docume nted legal sex) 34.0-4 5.0 Not Available [facility] (Lab) [address], [place], [address], 05/16/2025 09:55:39 05/15/2005/15/2025 CBC W/DIF F WBC 14.6 10'3/ uL 3.5-10 .5 high Not Available [facility] (Lab) [address] , [place], [address], 05/16/2025 09:55:39 05/15/2005/15/2025 CBC W/DIF F RBC 4.01 10'6/ uL (based on docume nted legal sex) 3.80-5 .20 Not Available [facility] (Lab) [address], [place], [address], 05/16/2025 09:55:39 05/15/2005/15/2025 CBC W/DIF F HGB 10.9 g/dL (based on docume nted legal sex) 11.6-1 5.4 low Not Available [facility] (Lab) [address], [place], [address], 05/16/2025 09:55:39 05/15/2005/15/2025 CBC W/DIF F HCT 35.7 % (based on docume nted legal sex) 34.0-4 5.0 Not Available [facility] (Lab) [address], [place], [address], 05/16/2025 09:55:39 05/15/2005/15/2025 CBC W/DIF F MCV 89.0 fL 80.0-9 9.0 Not Available [facility] (Lab) [address] [facility], [place], [address], 05/16/2025 09:55:39 05/15/2005/15/2025 CBC W/DIF F MCH 27.2 pg 27.0-3 4.0 Not Available [facility] (Lab) [address] [facility], [place], [address], 05/16/2025 09:55:39 05/15/2005/15/2025 CBC W/DIF F MCHC 30.5 g/dL 32.0-3 5.5 low Not Available [facility] (Lab) [address] [facility], [place], [address], 05/16/2025 09:55:39 05/15/2005/15/2025 CBC W/DIF F RDW 14.5 % 11.0-1 5.0 Not Available [facility] (Lab) [address] [facility], [place], [address], 05/16/2025 09:55:39 05/15/2005/15/2025 CBC W/DIF F plt 218 10'3/ uL 150-40 0 Not Available [facility] (Lab) [address] [facility], [place], [address], 05/16/2025 09:55:39 05/15/2005/15/2025 CBC W/DIF F MPV 11.1 fL 8.8-12 .1 Not Available [facility] (Lab) [address] [facility], [place], [address], 05/16/2025 09:55:39 05/15/2005/15/2025 CBC W/DIF F NRBC's 0.0 % 0.0 Not Available [facility] (Lab) [address] [facility], [place], [address], 05/16/2025 09:55:39 05/15/2005/15/2025 CBC W/DIF F absolute NRBCs 0.0 10'3/ uL no refere nce range establ ished Not Available [facility] (Lab) [address] [facility], [place], [address], 05/16/2025 09:55:39 05/15/2005/15/2025 CBC W/DIF F neutrophils 78.7 % 34.0-7 3.0 high Not Available [facility] (Lab) [address] [facility], [place], [address], 05/16/2025 09:55:39 05/15/2005/15/2025 CBC W/DIF F lymphocytes 15.0 % 15.0-5 0.0 Not Available [facility] (Lab) [address] [facility], [place], [address], 05/16/2025 09:55:39 05/15/2005/15/2025 CBC W/DIF F monocytes 4.9 % 1.0-15 .0 Not Available [facility] (Lab) [address], [place], [address], 05/16/2025 09:55:39 05/15/2005/15/2025 CBC W/DIF F eosinophils 0.6 % 0.0-8. 0 Not Available [facility] (Lab) [address] [facility], [place], [address], 05/16/2025 09:55:39 05/15/2005/15/2025 CBC W/DIF F basophils 0.3 % 0.0-2. 0 Not Available [facility] (Lab) [address], [place], [address], 05/16/2025 09:55:39 05/15/2005/15/2025 CBC W/DIF F immature granulocytes 0.5 % no define d refere nce range Immat ure Granu locyt es (IG) repre sents autom ated enume ratio n of Metam yeloc ytes, Myelo cytes and Promy elocy shlomo when IG is < 5%. Blast s are not inclu ded in IG and repor ruy separ ately if prese nt. Not Available [facility] (Lab) [address] [facility], [place], [address], 05/16/2025 09:55:39 05/15/2005/15/2025 CBC W/DIF F absolute neutrophils 11.4 10'3/ uL 1.5-8. 0 high Not Available [facility] (Lab) [address], [place], [address], 05/16/2025 09:55:39 05/15/2005/15/2025 CBC W/DIF F absolute lymphocytes 2.2 10'3/ uL 1.0-4. 0 Not Available [facility] (Lab) [address] [facility], [place], [address], 05/16/2025 09:55:39 05/15/2005/15/2025 CBC W/DIF F absolute monocytes 0.7 10'3/ uL 0.2-1. 0 Not Available [facility] (Lab) [address] [facility], [place], [address], 05/16/2025 09:55:39 05/15/2005/15/2025 CBC W/DIF F absolute eosinophils 0.1 10'3/ uL 0.0-0. 6 Not Available [facility] (Lab) [address] [facility], [place], [address], 05/16/2025 09:55:39 05/15/2005/15/2025 CBC W/DIF F absolute basophils 0.1 10'3/ uL 0.0-0. 3 Not Available [facility] (Lab) [address] [facility], [place], [address], 05/16/2025 09:55:39 05/15/2005/15/2025 CBC W/DIF F absolute [...] hyman book. nm.or g/gen derx Not Available [facility] (Lab) [address] , [place], [address], 05/16/2025 09:55:39 05/15/2005/15/2025 GTT - GESTA KHANH Bryce PRIMITIVO N, ACOG OB glucose, 1 hour screen 115 mg/dL 70-135 Not Available [facility] (Lab) [address] [facility], [place], [address], 05/16/2025 09:55:40 05/15/20 25 05/15/2025 URIC ACID uric acid 4.1 mg/dL 2.3-6. 6 Not Available [facility] (Lab) [address] [facility], [place], [address], 05/16/2025 09:55:40 05/15/20 25 05/15/2025 CMP(C OMPRE HENSI VE METAB OLIC PANEL ) sodium 138 mmol/ L 133-14 6 Not Available [facility] (Lab) [address] [facility], [place], [address], 05/16/2025 09:55:41 05/15/20 25 05/15/2025 CMP(C OMPRE HENSI VE METAB OLIC PANEL ) potassium 4.1 mmol/ L 3.5-5. 1 Not Available [facility] (Lab) [address] [facility], [place], [address], 05/16/2025 09:55:41 05/15/20 25 05/15/2025 CMP(C OMPRE HENSI VE METAB OLIC PANEL ) chloride 104 mmol/ L 98-107 Not Available [facility] (Lab) [address] [place], [address], 05/16/2025 09:55:41 05/15/20 25 05/15/2025 CMP(C OMPRE HENSI VE METAB OLIC PANEL ) carbon dioxide 24 mmol/ L 21-31 Not Available [facility] (Lab) [address] [place], [address], 05/16/2025 09:55:41 05/15/20 25 05/15/2025 CMP(C OMPRE HENSI VE METAB OLIC PANEL ) anion gap 10 mmol/ L 4-13 Not Available [facility] (Lab) [address] [facility], [place], [address], 05/16/2025 09:55:41 05/15/2005/15/2025 CMP(C OMPRE HENSI VE METAB OLIC PANEL ) blood urea nitrogen 7 mg/dL 7-25 Not Available [facility] (Lab) [address] [facility], [place], [address], 05/16/2025 09:55:41 05/15/2005/15/2025 CMP(C OMPRE HENSI VE METAB OLIC PANEL ) creatinine 0.55 mg/dL 0.60-1 .30 low Not Available [facility] (Lab) [address] [facility], [place], [address], 05/16/2025 09:55:41 05/15/2005/15/2025 CMP(C OMPRE HENSI VE METAB OLIC PANEL ) egfrcr (CKD-epi 2020) >90 mL/mi n/1.7 3_m2 >=60 Not Available [facility] (Lab) [address] [facility], [place], [address], 05/16/2025 09:55:41 05/15/2005/15/2025 CMP(C OMPRE HENSI VE METAB OLIC PANEL ) calcium 8.7 mg/dL 8.3-10 .5 Not Available [facility] (Lab) [address] [facility], [place], [address], 05/16/2025 09:55:41 05/15/2005/15/2025 CMP(C OMPRE HENSI VE METAB OLIC PANEL ) glucose 115 mg/dL 70-100 high Not Available [facility] (Lab) [address] [facility], [place], [address], 05/16/2025 09:55:41 05/15/2005/15/2025 CMP(C OMPRE HENSI VE METAB OLIC PANEL ) protein, total 5.7 g/dL 6.4-8. 3 low Not Available [facility] (Lab) [address] [facility], [place], [address], 05/16/2025 09:55:41 05/15/2005/15/2025 CMP(C OMPRE HENSI VE METAB OLIC PANEL ) albumin 3.1 g/dL 3.5-5. 0 low Not Available [facility] (Lab) [address] [facility], [place], [address], 05/16/2025 09:55:41 05/15/2005/15/2025 CMP(C OMPRE HENSI VE METAB OLIC PANEL ) ALT 9 units /L 9-43 Not Available [facility] (Lab) [address] [facility], [place], [address], 05/16/2025 09:55:41 05/15/2005/15/2025 CMP(C OMPRE HENSI VE METAB OLIC PANEL ) alkaline phosphatase 114 units /L 34-104 high Not Available [facility] (Lab) [address] [facility], [place], [address], 05/16/2025 09:55:41 05/15/20 25 05/15/2025 CMP(C OMPRE HENSI VE METAB OLIC PANEL ) AST 11 units /L 13-39 low Not Available [facility] (Lab) [address] [facility], [place], [address], 05/16/2025 09:55:41 05/15/2005/15/2025 CMP(C OMPRE HENSI VE METAB OLIC PANEL ) bilirubin, total 0.3 mg/dL 0.2-1. 2 Not Available [facility] (Lab) [address] [place], [address], 05/16/2025 09:55:41 05/15/2005/15/2025 HIV 1/2 ANTIG EN/AN TIBOD Y, REFLE X CONFI RMATI ON HIV antigen/anti body Nonrea ctive nonrea ctive HIV-1 antig en and HIV-1 /HIV- 2 antib odies were not detec ruy. No labor atory evide nce of HIV infec tion. Not Available [facility] (Lab) [address] [facility], [place], [address], 05/16/2025 09:55:41 05/15/20 25 05/15/2025 PROTE IN/CR EATIN INE RATIO , URINE creatinine, urine 13.0 mg/dL R-No refer ence range estab lishe d for this assay Not Available [facility] (Lab) [address] [facility], [place], [address], 05/16/2025 09:55:42 05/15/20 25 05/15/2025 PROTE IN/CR EATIN INE RATIO , URINE protein, urine <4 mg/dL R-No refer ence range estab lishe d for this assay Not Available [facility] (Lab) [address] [facility], [place], [address], 05/16/2025 09:55:42 05/15/20 25 05/15/2025 PROTE IN/CR [...] fican t prote inuri a. Not Available [facility] (Lab) [address] [facility], [place], [address], 05/16/2025 09:55:42 05/15/20 25 05/15/2025 RPR SCREE N, REFLE X TITER /CONF IRMAT ION RPR qualitative Nonrea ctive nonrea ctive Not Available [facility] (Lab) [address] [facility], [place], [address], 05/16/2025 09:55:42 02/07/20 25 02/06/2025 US, obste tric, nucha l trans lucen cy No observ ation record ed. [email or web address] [place] [address], [place], [address], 02/06/2025 17:26:10 02/07/20 25 02/06/2025 US, obste tric, follo w-up No observ ation record ed. [email or web address] [address], [place], [address], 02/07/2025 11:49:39 03/27/20 25 03/27/2025 US, obste tric, 2nd or 3rd trime ster No observ ation record ed. [email or web address] [place] [address], [place], [address], 03/27/2025 16:50:03 03/27/20 25 03/27/2025 US, obste tric, 2nd or 3rd trime ster No observ ation record ed. [email or web address] [facility] [address], [place], [address], 04/01/2025 20:55:55 04/24/20 25 04/24/2025 US, obste tric, follo w-up No observ ation record ed. [facility] [address], [place], [address], 04/24/2025 18:50:20 04/24/20 25 04/24/2025 US, obste tric, follo w-up No observ ation record ed. [email or web address] [facility], [place], [address], 05/02/2025 18:12:06 05/05/20 25 05/05/2025 US, obste tric, limit ed No observ ation record ed. [place] [id number], [place], [address], 05/08/2025 11:23:32 05/05/20 25 05/05/2025 US, obste tric, limit ed No observ ation record ed. [email or web address], [place], [address], 05/08/2025 11:23:15 05/06/20 25 05/05/2025 non-s tress test No observ ation record ed. [facility] [address], [place], [address], 05/14/2025 16:17:57 06/12/2006/12/2025 US, obste tric, follo w-up No observ ation record ed. [email or web address] [place] [address], [place], [address], 06/12/2025 13:37:49 06/12/2006/12/2025 US, elíase tric, follo w-up No observ ation record ed. [email or web address] [address], [place], [address], 06/14/2025 12:40:46 06/26/2006/26/2025 non-s tress test No observ ation record ed. [place] [address], [place], [address], 06/26/2025 17:40:02 06/26/20 non-s tress test No observ ation record ed. [email or web address] [place] [address], [place], [address], 06/26/2025 17:40:25 07/03/2007/03/2025 US, opal lemos bioph ysica l profi le + non-s tress test No observ ation record ed. [email or web address] [place] [address], [place], [address], 07/03/2025 10:21:51 07/03/2007/03/2025 US, obste tric, bioph ysica l profi le + non-s tress test No observ ation record ed. [email or web address] [address], [place], [address], 07/03/2025 10:36:03 07/03/2007/03/2025 non-s tress test No observ ation record ed. [address], [place], [address], 07/03/2025 17:34:00 07/03/20 non-s tress test No observ ation record ed. [address], [place], [address], 07/03/2025 16:02:31 07/10/2007/10/2025 US, obste tric, follo w-up No observ ation record ed. [email or web address] [address], [place], [address], 07/10/2025 11:53:53 07/10/2007/10/2025 US, obste tric, follo w-up No observ ation record ed. [facility] [address], [place], [address], 07/10/2025 13:24:28 07/10/2007/10/2025 , obste tric, bioph ysica l profi le + non-s tress test No observ ation record ed. [facility] [address], [place], [address], 07/10/2025 13:24:41 07/10/20 25 07/10/2025 non-s tress test No observ ation record ed. [address], [place], [address], 07/10/2025 16:54:42 07/10/20 non-s tress test No observ ation record ed. [email or web address] [place] [address], [place], [address], 07/10/2025 16:55:51 07/17/2007/17/2025 non-s tress test No observ ation record ed. FELICITY [place] [address], [place], [address], 07/19/2025 11:50:49 07/17/20 non-s tress test No observ ation record ed. [place] [address], [place], [address], 07/17/2025 10:56:47 07/17/2007/17/2025 US, obste tric, bioph ysica l profi le + non-s tress test No observ ation record ed. [email or web address] [place] [address], [place], [address], 07/17/2025 13:24:17 07/17/2007/17/2025 US, obste tric, bioph ysica l profi le + non-s tress test No observ ation record ed. [email or web address] [address], [place], [address], 07/17/2025 11:37:56 07/24/2007/24/2025 US, obste tric, bioph ysica l profi le + non-s tress test No observ ation record ed. [email or web address] [address], [place], [address], 07/24/2025 11:16:54 07/24/2007/24/2025 US, obste tric, bioph ysica l profi le + non-s tress test No observ ation record ed. [facility] [address], [place], [address], 07/24/2025 18:17:48 07/24/20 25 07/24/2025 non-s tress test No observ ation record ed. [facility] [address], [place], [address], 07/24/2025 18:19:09 07/24/20 25 non-s tress test No observ ation record ed. [email or web address], [place], [address], 07/24/2025 16:00:08 Result Notes None recorded. Problems Name Problem SNOMED Code Status Onset Date Resolution Date Notes Provider Name and Address Organization Details Recorded Time Pregnanc y test negative 233514624 Completed 201409/02/2020 Pregnanc y examinat ion or test, negative result;R ecorded Elsewher e: No Locat ion: [facility] S ource: EHR Latin American Studies Director elena: N Practi ce ID: 0001 Grabiel lable Time: 03:15:00 PM eBverley lopez [facility] 0 17:56:19 Obesity 554156418 Completed 201409/03/2020 Obesity, unspecif ied;Mathieu bronson ID: 0001 Beverley lopez [facility] 0 14:20:47 Speciali zed medical examinat ion Completed 201409/02/2020 Routine gynecolo gical examinat ion;Prac bronson ID: 0001 [facility] 0 17:57:40 Screenin g for malignan t neoplasm of cervix Completed 201409/02/2020 Pap Smear;Pr actice ID: 0001 Beverley lopez [facility] 0 17:56:38 Educatio n Completed 201409/02/2020 Family planning ;Recorde d Elsewher e: No [facility]at [facility] ource: EHR Latin American Studies Director elena: N Mathieuti ce ID: 0001 Grabiel lable Time: 04:00:00 PM Beverley Sun jessica, [facility] 0 17:55:08 Female rosa m covington [id number] Completed 201410/17/2020 Rosa M covington, female, of unspecif ied origin;P ractice ID: 0001 Beverley Sun jessica, [facility] 1 10:55:45 Body mass index 30+ - obesity 036794875 Completed 201510/17/2020 Body mass index (BMI) 39.0-39. 9, adult;Re corded Elsewher e: No [facility]at [facility] S ource: EHR Latin American Studies Director elena: N Practi ce ID: 0001 Grabiel lable Time: 11:00:00 AM Beverley Sun jessica [facility] 1 10:55:40 Syncope and collapse 392900223 Completed 201510/17/2020 Syncope and collapse ;Recorde d Elsewher e: No Locat ion: [facility] S ource: EHR Latin American Studies Director elena: N Mathieuti ce ID: 0001 Grabiel lable Time: 10:30:00 AM Beverley Sun jessica [facility] 1 10:56:12 Gestatio n less than 9 weeks 707758610 Completed 201509/02/2020 Less than 8 weeks gestatio n of pregnanc y;Mathieuti ce ID: 0001 Beverley lopez, [facility] 0 17:55:27 Pregnanc y, childbir th and puerperi um finding Completed 201510/17/2020 Encntr for suprvsn of normal first preg, first trimeste r;Practi ce ID: 0001 Beverley Corinne lopez, [facility] 1 10:55:59 Gestatio n period, 12 weeks 37703603 Completed 201509/02/2020 12 weeks gestatio n of pregnanc y;Practi ce ID: 0001 Beverley Sun null, [facility] 0 17:55:30 Pregnanc y, childbir th and puerperi um finding Completed 201509/02/2020 Encntr for suprvsn of normal first preg, second trimeste r;Practi ce ID: 0001 Beverley Corinne lopez, [facility] 0 17:56:27 Gestatio n period, 32 weeks [id number] Completed 201509/02/2020 32 weeks gestatio n of pregnanc y;Practi ce ID: 0001 Beverley lopez, [facility] 0 17:55:35 Pregnanc y, childbir th and puerperi um finding Completed 201509/03/2020 Encounte r for supervis ion of normal first pregnanc y, third trimeste r;Record ed Elsewher e: No Locat ion: [facility] S ource: EHR Latin American Studies Director elena: N Practi ce ID: 0001 Grabiel lable Time: 05:30:00 PM Beverley Corinne lopez [facility] 0 14:20:36 Gestatio n period, 33 weeks 07720711 Completed 201509/02/2020 33 weeks gestatio n of pregnanc y;Record ed Elsewher e: No Locat ion: [facility] S ource: EHR Latin American Studies Director elena: N Practi ce ID: 0001 Grabiel lable Time: 09:00:00 AM Beverley lopez [facility] 0 17:55:39 Normal pregnanc y in [place] 6141305161 44661 Completed 201509/02/2020 Encounte r for suprvsn of normal pregnanc y, third trimeste r;Practi ce ID: 0001 Beverley lopez, [facility] 0 17:56:11 Gestatio n period, 34 weeks 83377340 Completed 201509/02/2020 34 weeks gestatio n of pregnanc y;Practi ce ID: 0001 Beverley Sun null, [facility] 0 17:55:42 Pregnanc y-induce d hyperten tonya Completed 201503/27/2021 Gestatio nal htn w/o signific ant proteinu che, third trimeste r;Record ed Elsewher e: No Locat ion: [facility] S ource: EHR Latin American Studies Director elena: N Practi ce ID: 0001 Grabiel lable Time: 03:00:00 PM Beverley lopez, [facility] 1 16:36:34 Gestatio n period, 36 weeks 38549651 Completed 201509/02/2020 36 weeks gestatio n of pregnanc y;Practi ce ID: 0001 Beverley Corinne lopez, [facility] 0 17:55:48 Single live from singleto n pregnanc y 011030836 Completed 201509/03/2020 Single live ;Pr actice ID: 0001 Beverley Corinne lopez, [facility] 0 14:20:54 Gestatio n period, 37 weeks [id number] Completed 201509/02/2020 37 weeks gestatio n of pregnanc y;Practi ce ID: 0001 Beverley lopez, [facility] 0 17:55:50 Pregnanc y-induce d hyperten tonya Completed 201509/02/2020 Gestatio nal htn w/o signific ant proteinu che, unsp trimeste r;Practi ce ID: 0001 Beverley Corinne jessica, [facility] 0 17:57:29 Hyperten sive disorder 70736543 Completed 201503/27/2021 Benign hyperten tonya;Rec orded Elsewher e: No Locat ion: [facility] S ource: EHR Latin American Studies Director elena: N Practi ce ID: 0001 Grabiel lable Time: 10:30:00 AM Beverley Sun jessica, [facility] 5 19:18:30 Non-prot einuric hyperten tonya of pregnanc y 817600578 Completed 201510/17/2020 Gestatnl htn without signific ant protein, comp the puerp;Pr actice ID: 0001 Beverley Corinne jessica, [facility] 1 10:56:02 Lochia finding Completed 201510/17/2020 Encounte r for routine postpart um follow-u p;Practi ce ID: 0001 [facility], [facility] [address] 10:55:[address] Concept Completed 201809/02/2020 Encntr for water and gas helper exam (general ) (routine ) w/o abn findings ;Recorde d Elsewher e: No Locat ion: [facility] S ource: EHR Latin American Studies Director elena: N Practi ce ID: 0001 Grabiel lable Time: 10:30:00 AM Beverley Sun jessica, [facility] 0 17:56:45 Pregnanc y detectio n examinat ion Completed 201809/02/2020 Encounte r for pregnanc y test, result positive ;Practic e ID: 0001 Beverley Sun jessica, [facility] 0 17:56:17 Uterine size for dates discrepa ncy Completed 201810/17/2020 Uterine size-malia e discrepa ncy, first trimeste r;Practi ce ID: 0001 Beverley lopez, [facility] 1 10:56:17 Secondar y amenorrh ea 490452641 Completed 201810/17/2020 Secondar y amenorrh ea;Recor ded Elsewher e: No Locat ion: [facility] S ource: EHR Latin American Studies Director elena: N Practi ce ID: 0001 Grabiel lable Time: 10:30:00 AM Beverley Corinne jessica, [facility] 1 10:56:05 Infectio n screenin g Completed 201809/02/2020 Encounte r for screenin g for oth infec/pa rastc diseases ;Recorde d Elsewher e: No Locat ion: [facility] S ource: EHR Latin American Studies Director elena: N Practi ce ID: 0001 Grabiel lable Time: 10:30:00 AM Beverley Sun jessica, [facility] 0 17:56:03 Syphilis test finding 214954520 Completed 201809/03/2020 Encntr screen for infectio ns w sexl mode of transmis s;Record ed Elsewher e: No Locat ion: [facility] S ource: EHR Latin American Studies Director elena: N Practi ce ID: 0001 Grabiel lable Time: 10:30:00 AM Beverley Sun jessica [facility] 0 14:20:58 Finding of viabilit y of pregnanc y 431986213 Completed 201809/02/2020 Pregnanc y w inconclu sive viabilit y, unsp;Pra ctice ID: 0001 Beverley Sun jessica, [facility] 0 17:55:21 Finding of contents of cervix 268382269 Completed 201809/02/2020 Weeks of gestatio n of pregnanc y not specifie d;Practi ce ID: 0001 Beverley lopez, [facility] 0 17:55:14 Threaten ed miscarri age 48815030 Completed 201810/17/2020 Threaten ed ;Recorde d Elsewher e: No Locat ion: [facility] S ource: EHR Latin American Studies Director elena: N Practi ce ID: 0001 Grabiel lable Time: 12:30:00 PM [facility], [facility] 1 10:56:15 Gestatio n period, 8 weeks 34869172 Completed 201809/02/2020 8 weeks gestatio n of pregnanc y;Practi ce ID: 0001 [facility], [facility] 0 17:55:55 Rubella screenin g status 410133686 Completed 201809/02/2020 Encounte r for antenata l screenin g, unspecif ied;Benitez rded Elsewher e: No [facility]at [facility] S ource: EHR Latin American Studies Director elena: N Practi ce ID: 0001 Grabiel lable Time: 04:30:00 PM [facility], [facility] 0 17:56:34 Antenata l screenin g Completed 201809/02/2020 Encounte r for antenata l screenin g for nuchal transluc ency;Pra ctice ID: 0001 [facility], [facility] 0 17:57:11 Antenata l screenin g for malforma tion Completed 201809/02/2020 Encounte r for antenata l screenin g for malforma tions;Re corded Elsewher e: No Locat ion: [facility] S ource: EHR Latin American Studies Director elena: N Practi ce ID: 0001 Grabiel lable Time: 08:15:00 AM [facility], [facility] 0 17:57:13 Gestatio n period, 29 weeks [id number] Completed 201809/02/2020 29 weeks gestatio n of pregnanc y;Record ed Elsewher e: No [facility] Latin American Studies Director elena: N Mathieuti ce ID: 0001 Grabiel lable Time: 03:45:00 PM Beverley Sun jessica, [facility] 0 17:55:32 Clinical finding Completed 201810/17/2020 Tachycar rishi, unspecif ied;Benitez rded Elsewher e: No Locat ion: [facility] S ource: EHR Latin American Studies Director elena: N Mathieuti ce ID: 0001 Grabiel lable Time: 11:15:00 AM Beverley lopez, [facility] 1 10:55:44 Clinical finding Completed 201809/02/2020 Obesity, unspecif ied;Benitez rded Elsewher e: No Locat ion: [facility] S ource: EHR Latin American Studies Director elena: N Mathieuti ce ID: 0001 Grabiel lable Time: 03:00:00 PM Beverley lopez, [facility] 0 17:55:24 Finding of body mass index 174615069 Completed 201809/02/2020 Body mass index (BMI) 40.0-44. 9, adult;Re corded Elsewher e: No Locat ion: [facility] S ource: EHR Latin American Studies Director elena: N Mathieuti ce ID: 0001 Grabiel lable Time: 02:00:00 PM Beverley lopez, [facility] 0 17:56:59 Gestatio n period, 35 weeks [id number] Completed 201809/02/2020 35 weeks gestatio n of pregnanc y;Record ed Elsewher e: No Locat ion: [facility]: N Mathieuti ce ID: 0001 Grabiel lable Time: 02:00:00 PM Beverley lopez, [facility] 0 17:55:44 Severe obesity complica ting pregnanc y [id number] 0269315 Completed 201810/17/2020 Obesity complica ting pregnanc y, third trimeste r;Record ed Elsewher e: No Locat ion: [facility] S ource: EHR Latin American Studies Director elena: N Practi ce ID: 0001 Grabiel lable Time: 03:00:00 PM Beverley lopez [facility] 1 10:56:10 Gestatio n period, 38 weeks 18953107 Completed 201809/02/2020 38 weeks gestatio n of pregnanc y;Record ed Elsewher e: No Locat ion: [facility] S ource: EHR Latin American Studies Director elena: N Practi ce ID: 0001 Grabiel lable Time: 11:00:00 AM Beverley lopez [facility] 0 17:55:53 Hyperten tonya in the obstetri c context Completed 201810/17/2020 Pre-exis ting essentia l htn comp pregnanc y, third trimeste r;Practi ce ID: 0001 Beverley lopez, [facility] 1 10:55:52 Attentio n deficit hyperact ivity disorder 296756371 Active 2024 stopped taking medicati on when found out Beverley lopez [facility] 5 19:38:30 Mixed anxiety and depressi ve disorder 733606337 Active 2024 Beverley lopez [facility] 5 19:37:00 Hyperten sive disorder 26311139 Active 2024 Medina Whitaker CNM [address], [place], [address], [facility] 5 17:26:39 Headache 61034349 Active 2024 Beverley lopez, [facility] 19:37:14 Pregnanc y 55985533 Active 2024 [facility], [facility] 19:36:35 Mixed anxiety and depressi ve disorder 678785907 Active 2024 Beverley lopez, [facility] 19:37:00 Headache 61675034 Active 2024 [facility], [facility] 19:37:14 Past pregnanc y history of gestatio nal hyperten tonya 388779134 Active 2024 2016 pregnanc y start bASA x 2 daily Medina Whitaker CNM [address], [place], [address], [facility] 17:26:14 Attentio n deficit hyperact ivity disorder 129257083 Active 2024 stopped taking medicati on when found out Bevreley Sun [facility] 19:38:30 Obesity 278010394 Active 2024 antenata l testing @ 34wks Sonya Batista [facility] 20:55:07 Hyperten tonya AND/OR vomiting complica ting pregnanc y childbir th AND/OR puerperi 580731590 Active 2024 Medina Whitaker CNM [address], [place], [address], [facility] 15:51:32 Notes:Encounter for antenata l screening of mother Recorded Elsewhere: No Location: [facility] Source: EHR Chronic: N Practice ID: 0001 Billable Time: 10:30:00 AM Encounter for screening of mother Practice ID: 0001 Encounter for screening of mother Recorded Elsewhere: No Location: [facility] Source: EHR Chronic: N Practice ID: 0001 Billable Time: 10:30:00 AM Encounter for screening of mother Practice ID: 0001 Problem Notes None recorded. Procedures Surgical History Date Name Laterality Status Provider Name and Address Organization Details Recorded Time Date of Last Pap Smear completed [facility]ley [facility] 02/06/2025 08:37:03 1 extraction of wisdom tooth completed [facility] 02/06/2025 19:33:27 Imaging Results None [...] Prescrib ed Elsewher e: No Locat ion: [facility] M odify By: [email or web address] z Encoun ter [...] 48 hours if needed 09/02 completed Prescrib camilo Fritz e: No [facility] By: rocio solorzano DateTime : 10/26/19 [...] 1 TABLET BY MOUTH THREE TIMES DAILY 06/16 /2022 completed Not Available Not Available Not Available letrozole 2.5 mg tablet take 1 tablet by oral route cycle days 5-9 06/28 completed Prescrib ed Elsewher e: No Locat ion: [facility] odify By: geovanny z Hiro ter DateTime : 03/31/20 09:00:00 [...] Prescrib ed Elsewher e: No Locat ion: [facility] odify By: belem haley DateTime : 07/05/20 [...] Updated DateTime 06/12/2025 167.64 cm 49.2 kg/m2 393970.67 g 124/86 mm[Hg] Jaqueline Maier [facility] 06/12/2025 12:17:18 Social History Question Answer Notes LastModified by Organizat ion Details LastModified Time Tobacco Smoking Status Never Smoker [facility] 03/21/2020 13:16:23 Do You Have An Advance Directive? No Information n ot available 01/07/2025 If You Are , What Was Your Level Of Alcohol Consumption Prior To ? Occasional Information not available 10/17/2020 Are You Blind Or Do You Have Difficulty Seeing? No [email or web address] Information n ot available 03/27/2021 What Is Your Level Of Caffeine Consumption? Occasional [email or web address] Information not available 10/17/2020 In The 14 Days Before Symptom Onset, Have You Had Close Contact With A Laboratory-confirm ed COVID-19 While That Case Was Ill? No Information n ot available 03/27/2021 In The 14 Days Before Symptom Onset, Have You Had Close Contact With A Person Who Is Under Investigation For COVID-19 While That Person Was Ill? No [email or web address] Information not available 03/27/2021 Have You Been To An Area Known To Be High Risk For COVID-19? No [email or web address] Information not available 03/27/2021 Are You Deaf Or Do You Have Serious Difficulty Hearing? No [email or web address] Information not available 03/27/2021 What Type Of Diet Are You Following? REGULAR [email or web address] Information n ot available 03/27/2021 What Is The Highest Grade Or Level Of School You Have Completed Or The Highest Degree You Have Received? [id number] Information not available 01/07/2025 What Was The Date Of Your Most Recent Tobacco Screening? 02/06/2025 Information not available 02/06/2025 Have You Ever Been Counseled For Unhealthy Alcohol Use? No [email or web address] Information not available 10/17/2020 Do You Use Protection During Sex? No Information not available 01/07/2025 Do You Use Your Seat Belt Or Car Seat Routinely? Yes [email or web address] Information not available 03/27/2021 Do You Have Smoke And Carbon Monoxide Detectors In Your Home? Yes Information not available 03/27/2021 How Much Tobacco Do You Smoke? No [email or web address] Information not available 03/21/2020 Do You Use Sunscreen Routinely? Yes [email or web address] Information not available 03/27/2021 Has Tobacco Cessation Counseling Been Provided? No [email or web address] Information not available 10/17/2020 Have You Used IV Drugs? No Information not available 01/07/2025 Do You Have Difficulty Walking Or Climbing Stairs? No [email or web address] Information not available 02/06/2025 Sex: Unknown Functional Status Question Answer Note LastModified by Organizat ion Details LastModified Time Do you use any illicit or recreational drugs? No [email or web address] Information not available 10/17/2020 Do you or have you ever used any other forms of tobacco or nicotine? No [email or web address] Information not available 10/17/2020 What is your level of alcohol consumption? None [email or web address] Information not available 02/06/2025 Do you or have you ever used smokeless tobacco? Never used smokeless tobacco [email or web address] Information not available 03/21/2020 Are you able to walk independently without assistance or assistive devices? YESWOREST [email or web address] Information not available 03/27/2021 Are you able to care for yourself independently? Yes [email or web address] Information not available 02/06/2025 Do you have difficulty dressing, bathing, grooming, or toileting? No [email or web address] Information not available 02/06/2025 Do you or have you ever used e-cigarettes or vape? Never used electronic cigarettes [email or web address] Information not available 03/21/2020 What is your exercise level? Occasional [email or web address] Information not available 03/21/2020 Mental Status Question Answer Note LastModified by Organization D etails LastModified Time Do you feel stressed (tense, restless, nervous, or anxious, or unable to sleep at night)? [id number] [email or web address] Information not available 03/27/2021 Family History Relationship Description Onset Age of this Age Resolved Age Notes LastModified by Organization Details LastModified Time Mother Disorder of thyroid gland Not available 03/21 13:15:49 Father Diabetes mellitus [id number] Not available 03/21 13:16:06 Maternal Grandfather Diabetes [...] ICD10 Code Diagnosis IMO Codes Diagnosis Note [id number] Medina Whitaker CNM [place] [address] [address] 05/15/2025 09:49:32 05/15/2025 10:47:27 Gestation period, 27 weeks [id number] Z3A.27 [id number] Medina Whitaker CNM [place] [address] [address] 05/29/2025 09:18:49 05/29/2025 09:51:39 Gestation period, 29 weeks [id number] Z3A.29 [id number] Lobito Salinas MD [place] [address] [address] 06/12/2025 11:17:33 06/12/2025 12:05:04 Large for gestation age fetus [id number] O36.60X0 Z3A.31 [id number] Medina Whitaker CNM [place] [address],[place] [address] 06/12/2025 11:18:32 06/12/2025 14:07:15 Gestation period, 31 weeks [id number] Z3A.31 [id number] Health Concerns Section Related Observation LastModified by Organization Detai ls LastModified Time None Recorded Concern Status LastModified by Organization Details LastModified Time None Recorded Payers Encounter Date Sequence Insurance Name Policy Number Policy [place] Covered Member ID [place] Member ID Guarantor Name 06/12/2025 1 [facility] [id number] Apolinar Rivers [id number] Whit Rivers Notes Date Note Type Note Provider Name and Address Organization Details Recorded Time 06/12/2025 text/html Generic HPI TemplateReported by Patient Medina Whitaker CNM [address], [place], [address], [facility] 06/12/2025 14:01:10 OBGyn Episode Ob Episode Information Episode Created Date Number of Fetuses Patient Bloodtype Patient rh Status Prepregnancy Weight lbs Domestic Partner Domestic Partner Phone Father Name Manager Of Care Status 02/07/20 25 1 O Positive 291 Apolinar Rivers OPEN Fetus Data First Name Last Name Admitted to NICU Weight (g) Sex Living Outcome Pediatric Complications Fetus ID Race Codes Race Delivery Type [id number] Problems Problem Notes Problem Name Start Date End Date Resolution Snomed Code Not e Attention deficit hyperactivity disorder 02/06/2025 [id number] stopped taking medication when found out Past history of gestational hypertension 02/06/2025 [id number] 2016 pregnancys tart bASA x 2 daily Obesity 02/07/2025 [id number] testing @ 34wks Headache 02/06/2025 [id number] Mixed anxiety and depressive disorder 02/06/2025 [id number] Hypertension AND/OR vomiting complicating childbirth AND/OR puerperium 06/26/2025 977020912 Alfa Calculation Initial Alfa Date Initial Exam [...] Weight in lbs Pre/Post Dialysis Refused Weight 289.921190122227 BP Diastolic BP Location Tested BP Systolic [...] Weight in lbs Pre/Post Dialysis Refused Weight 294.106777880592 BP Diastolic BP Location Tested BP Systolic [...] Type Weight in lbs Pre/Post Dialysis Refused 297.124431922240 BP Diastolic BP Location Tested BP Systolic [...] Type Weight in lbs Pre/Post Dialysis Refused 302.668523341006 BP Diastolic BP Location Tested BP Systolic [...] Weight in lbs Pre/Post Dialysis Refused Weight 305.129956474112 BP Diastolic BP Location Tested BP Systolic [...] Weight in lbs Pre/Post Dialysis Refused Weight 306.375932365267 BP Diastolic BP Location Tested BP Systolic [...] Weight in lbs Pre/Post Dialysis Refused Weight 305.607705675266 BP Diastolic BP Location Tested BP Systolic [...] Weight in lbs Pre/Post Dialysis Refused Weight 307.079753912752 BP Diastolic BP Location Tested BP Systolic [...] Type Weight in lbs Pre/Post Dialysis Refused 308.527070148943 BP Diastolic BP Location Tested BP Systolic BP Type 81 L arm 132 sitting Fetus Heart Rate Present Fetus Movement A Yes Comments Flowsheet Date 07/03/2025 Bunn Score Blood Edema Fundus Height Fundus Units Glucose Ketones Leukocytes Nitrite Labor Signs Protein Cervic Dilation Cervic Effacement Cervic Station Type Weight in lbs Pre/Post Dialysis Refused 308.230877500305 BP Diastolic BP Location Tested BP Systolic [...] Weight in lbs Pre/Post Dialysis Refused Weight 310.757459636536 BP Diastolic BP Location Tested BP Systolic BP Type 85 L arm 128 sitting Fetus Heart Rate Present Fetus Movement A Yes Comments Flowsheet Date 07/10/2025 Bunn Score Blood Edema Fundus Height Fundus Units Glucose Ketones Leukocytes Nitrite Labor Signs Protein Cervic Dilation Cervic Effacement Cervic Station Type Weight in lbs Pre/Post Dialysis Refused 310.469547151105 BP Diastolic BP Location Tested BP Systolic [...] Type Weight in lbs Pre/Post Dialysis Refused 311.011139632243 BP Diastolic BP Location Tested BP Systolic [...] Weight in lbs Pre/Post Dialysis Refused Weight 312.837892660076 BP Diastolic BP Location Tested BP Systolic BP Type 84 L arm 131 sitting Fetus Heart Rate Present Fetus Movement A Yes Comments Flowsheet Date 07/24/2025 Bunn Score Blood Edema Fundus Height Fundus Units Glucose Ketones Leukocytes Nitrite Labor Signs Protein Cervic Dilation Cervic Effacement Cervic Station 1cm 50% -2 Type Weight in lbs Pre/Post Dialysis Refused Weight 312.164400036295 BP Diastolic BP Location Tested BP Systolic [...]
--- OUTSIDE RECORDS SUMMARY | 2025-07-26 05:57 | XMS_ITS | Continuity of Care Document ---
Author Organization [facility] Address [address] [place] [address] Care Team Providers Care Environmental Services Manager Name Role Phone HA MORTON Primary Care Provider Assessment Encounter Date Assessment Date Assessment LastModified by Organization Details LastModified Time 07/24/2025 07/24/2025 Patient 39 ___weeks . Discussed plan. Not available 07/24/2025 13:05:26 Plan of Treatment Reminders Order Date Submit [...] Not Available [facility] [address], [place], [address], 02/14/2025 01:55:32 02/15/20 25 02/14/2025 [UNIT Y] ANEUP LOIDY NIPT 22Q11.2 microdeletio n LOW RISK <1 in 10,000 normal Not Available [facility] [address], [place], [address], 02/14/2025 01:55:32 02/15/20 25 02/14/2025 [UNIT Y] ANEUP LOIDY NIPT sex chromosome aneuploidy NOT DETECT ED normal Not Available [facility] [address], [place], [address], 02/14/2025 01:55:32 02/15/20 25 02/14/2025 [UNIT Y] ANEUP LOIDY NIPT monosomy X LOW RISK <1 in 10,000 normal Not Available [facility] [address], [place], [address], 02/14/2025 01:55:32 02/15/20 25 02/14/2025 [UNIT Y] ANEUP LOIDY NIPT trisomy 13 LOW RISK <1 in 10,000 normal Not Available [facility] [address], [place], [address], 02/14/2025 01:55:32 02/15/20 25 02/14/2025 [UNIT Y] ANEUP LOIDY NIPT trisomy 18 LOW RISK <1 in 10,000 normal Not Available [facility] [address], [place], [address], 02/14/2025 01:55:32 02/15/20 25 02/14/2025 [UNIT Y] ANEUP LOIDY NIPT trisomy 21 LOW RISK <1 in 10,000 normal Not Available [facility] [address], [place], [address], 02/14/2025 01:55:32 02/15/20 25 02/14/2025 [UNIT Y] ANEUP LOIDY NIPT sex MALE normal Not Available [facility] [address], [place], [address], 02/14/2025 01:55:32 02/15/20 25 02/14/2025 [UNIT Y] ANEUP LOIDY NIPT gestation SINGLE TON normal Not Available [facility] [address], [place], [address], 02/14/2025 01:55:32 02/15/20 25 02/14/2025 [UNIT Y] ANEUP LOIDY NIPT for detailed report, see pdf See PDF normal Not Available [facility] [address], [place], [address], 02/14/2025 01:55:32 02/18/20 25 02/17/2025 [UNIT Y] OTTO Islas sickle cell disease/beta -thalassemia /hemoglobino pathies carrier screen NEGATI VE normal Not Available [facility] [address], [place], [address], 02/17/2025 10:24:39 02/18/20 25 02/17/2025 [UNIT Y] OTTO Islas alpha-thalas semia carrier screen NEGATI VE normal Not Available [facility] [address], [place], [address], 02/17/2025 10:24:39 02/18/20 25 02/17/2025 [UNIT Y] OTTO KNIGHTTracie Islas cystic fibrosis carrier screen NEGATI VE normal Not Available [facility] [address], [place], [address], 02/17/2025 10:24:39 02/18/20 25 02/17/2025 [UNIT Y] OTTO PATEL PRIMITIVO Islas spinal muscular atrophy carrier screen NEGATI VE 2 SMN1 copies , SNP not presen t normal Not Available [facility] [address], [place], [address], 02/17/2025 10:24:39 02/18/20 25 02/17/2025 [UNIT Y] OTTO PTAEL PRIMITIVO Islas for detailed report, see pdf See PDF normal Not Available [facility] [address], [place], [address], 02/17/2025 10:24:39 02/07/20 25 02/06/2025 CBC W/DIF F WBC 12.0 10'3/ uL 3.5-10 .5 high Not Available [facility] (Lab) [address] , [place], [address], 02/07/2025 13:12:55 02/07/20 25 02/06/2025 CBC W/DIF F RBC 4.52 10'6/ uL (based on docume nted legal sex) 3.80-5 .20 Not Available [facility] (Lab) [address] , [place], [address], 02/07/2025 13:12:55 02/07/20 25 02/06/2025 CBC W/DIF F HGB 12.4 g/dL (based on docume nted legal sex) 11.6-1 5.4 Not Available [facility] (Lab) [address] , [place], [address], 02/07/2025 13:12:55 02/07/20 25 02/06/2025 CBC W/DIF F HCT 38.9 % (based on docume nted legal sex) 34.0-4 5.0 Not Available [facility] (Lab) [address], [place], [address], 02/07/2025 13:12:55 02/07/20 25 02/06/2025 CBC W/DIF F MCV 86.1 fL 80.0-9 9.0 Not Available [facility] (Lab) [address], [place], [address], 02/07/2025 13:12:55 02/07/20 25 02/06/2025 CBC W/DIF F MCH 27.4 pg 27.0-3 4.0 Not Available [facility] (Lab) [address], [place], [address], 02/07/2025 13:12:55 02/07/20 25 02/06/2025 CBC W/DIF F MCHC 31.9 g/dL 32.0-3 5.5 low Not Available [facility] (Lab) [address], [place], [address], 02/07/2025 13:12:55 02/07/20 25 02/06/2025 CBC W/DIF F RDW 12.9 % 11.0-1 5.0 Not Available [facility] (Lab) [address], [place], [address], 02/07/2025 13:12:55 02/07/20 25 02/06/2025 CBC W/DIF F plt 281 10'3/ uL 150-40 0 Not Available [facility] (Lab) [address], [place], [address], 02/07/2025 13:12:55 02/07/20 25 02/06/2025 CBC W/DIF F MPV 11.0 fL 8.8-12 .1 Not Available [facility] (Lab) [address], [place], [address], 02/07/2025 13:12:55 02/07/20 25 02/06/2025 CBC W/DIF F NRBC's 0.0 % 0.0 Not Available [facility] (Lab) [address] [facility], [place], [address], 02/07/2025 13:12:55 02/07/20 25 02/06/2025 CBC W/DIF F absolute NRBCs 0.0 10'3/ uL no refere nce range establ ished Not Available [facility] (Lab) [address] [facility], [place], [address], 02/07/2025 13:12:55 02/07/20 25 02/06/2025 CBC W/DIF F neutrophils 72.5 % 34.0-7 3.0 Not Available [facility] (Lab) [address] [facility], [place], [address], 02/07/2025 13:12:55 02/07/20 25 02/06/2025 CBC W/DIF F lymphocytes 20.4 % 15.0-5 0.0 Not Available [facility] (Lab) [address] [facility], [place], [address], 02/07/2025 13:12:55 02/07/20 25 02/06/2025 CBC W/DIF F monocytes 5.9 % 1.0-15 .0 Not Available [facility] (Lab) [address] [facility], [place], [address], 02/07/2025 13:12:55 02/07/20 25 02/06/2025 CBC W/DIF F eosinophils 0.6 % 0.0-8. 0 Not Available [facility] (Lab) [address] [place], [address], 02/07/2025 13:12:55 02/07/20 25 02/06/2025 CBC W/DIF F basophils 0.3 % 0.0-2. 0 Not Available [facility] (Lab) [address] [facility], [place], [address], 02/07/2025 13:12:55 02/07/20 25 02/06/2025 CBC W/DIF [...] separ ately if prese nt. Not Available [facility] (Lab) [address] [facility], [place], [address], 02/07/2025 13:12:55 02/07/20 25 02/06/2025 CBC W/DIF F absolute neutrophils 8.7 10'3/ uL 1.5-8. 0 high Not Available [facility] (Lab) [address] [facility], [place], [address], 02/07/2025 13:12:55 02/07/20 25 02/06/2025 CBC W/DIF F absolute lymphocytes 2.4 10'3/ uL 1.0-4. 0 Not Available [facility] (Lab) [address] [facility], [place], [address], 02/07/2025 13:12:55 02/07/20 25 02/06/2025 CBC W/DIF F absolute monocytes 0.7 10'3/ uL 0.2-1. 0 Not Available [facility] (Lab) [address] [facility], [place], [address], 02/07/2025 13:12:55 02/07/20 25 02/06/2025 CBC W/DIF F absolute eosinophils 0.1 10'3/ uL 0.0-0. 6 Not Available [facility] (Lab) [address] [facility], [place], [address], 02/07/2025 13:12:55 02/07/20 25 02/06/2025 CBC W/DIF F absolute basophils 0.0 10'3/ uL 0.0-0. 3 Not Available [facility] (Lab) [address] [facility], [place], [address], 02/07/2025 13:12:55 02/07/2002/06/2025 CBC W/DIF F absolute [...] and book. nm.or g/gen derx Not Available [facility] (Lab) [address] [facility], [place], [address], 02/07/2025 13:12:55 02/07/2002/06/2025 HEPAT ITIS B SURFA CE ANTIG EN hepatitis B surface antigen Non-re active non-re active This assay was perfo rmed using [employer] ratio n reage nts and test kits. Value s obtai dexter with other assay metho ds or kits canno t be used inter lopez eably . Not Available [facility] (Lab) [address] [facility], [place], [address], 02/07/2025 13:12:55 02/07/2002/06/2025 HIV 1/2 ANTIG EN/AN TIBOD Y, REFLE X CONFI RMATI ON HIV antigen/anti body Nonrea ctive nonrea ctive HIV-1 antig en and HIV-1 /HIV- 2 antib odies were not detec ruy. No labor atory evide nce of HIV infec tion. Not Available [facility] (Lab) [address] [facility], [place], [address], 02/07/2025 13:12:56 02/07/2002/06/2025 HEPAT ITIS C ANTIB ANITA SCREE N, REFLE X TO CONFI RMATI ON hepatitis C antibody Non-re active non-re active Antib odies to HCV Not Detec ruy, does not exclu de the possi bilit y of expos ure to HCV. Not Available [facility] (Lab) [address] [facility], [place], [address], 02/07/2025 13:12:56 02/07/20 25 02/06/2025 RUBEL LA IGG ANTIB ANITA, QUANT rubella antibodies, IgG Reacti ve reacti ve Not Available [facility] (Lab) [address] [facility], [place], [address], 02/07/2025 13:12:56 02/07/20 25 02/06/2025 RUBEL LA IGG ANTIB ANITA, QUANT rubella antibodies, IgG quant 61.9 IU/mL >=10 Non-r eacti ve (Non- Immun e) <10 IU/mL React essie (Immu ne) > or = 10 IU/mL Not Available [facility] (Lab) [address] [facility], [place], [address], 02/07/2025 13:12:56 02/07/2002/06/2025 TYPE/ RH/SC REEN ABO/Rh type O POS Not Available [facility] (Lab) [address] [facility], [place], [address], 02/07/2025 13:12:57 02/07/2002/06/2025 TYPE/ RH/SC REEN antibody screen NEG Not Available [facility] (Lab) [address] [facility], [place], [address], 02/07/2025 13:12:57 02/07/2002/06/2025 TYPE/ RH/SC REEN exp date 2024 23:59 Not Available [facility] (Lab) [address] [place], [address], 02/07/2025 13:12:57 02/07/20 25 02/06/2025 RPR SCREE N, REFLE X TITER /CONF IRMAT ION RPR qualitative Nonrea ctive nonrea ctive Not Available [facility] (Lab) [address] [facility], [place], [address], 02/07/2025 13:12:57 02/07/20 25 02/06/2025 HEMOG LOBIN [...] >8.0% Actio n sugge sted Not Available [facility] (Lab) [address] [facility], [place], [address], 02/07/2025 13:12:57 02/07/2002/06/2025 CULTU RE: URINE result report SEE RESULT S BELOW Test: Cultu re: Urine Speci men Sourc e: Urine - Clean Catch Speci men Type: Urine Speci men Date: 2024 1737 Resul t Date: 2024 0700 Resul t Statu s: Final resul t Abnor mal: No Resul ting Lab: [facility] [address] [facility] [address] Tel: [phone] CULTU RE ----- ----- ----- --- Cultu re resul t (>=3 organ isms prese nt) indic ates possi ble conta minat ion. Repea t cultu re if sympt oms indic ate. Not Available [facility] (Lab) [address] [facility], [place], [address], 02/08/2025 08:03:32 02/07/2002/06/2025 drug scree n, urine Amphetamines : negati ve Not Available [facility] [address], [place], [address], 02/06/2025 18:30:19 02/07/20 25 02/06/2025 drug scree n, urine Cannabinoids : negati ve Not Available [facility] [address], [place], [address], 02/06/2025 18:30:19 02/07/20 25 02/06/2025 drug scree n, urine Cocaine: negati ve Not Available [facility] [address], [place], [address], 02/06/2025 18:30:19 02/07/20 25 02/06/2025 drug scree n, urine Opiates: negati ve Not Available [facility] [address], [place], [address], 02/06/2025 18:30:19 02/07/20 25 02/06/2025 drug scree n, urine Phenocyclidi ne: negati ve Not Available [facility] [address], [place], [address], 02/06/2025 18:30:19 02/07/20 25 02/06/2025 drug scree n, urine Barbiturates : negati ve Not Available [facility] [address], [place], [address], 02/06/2025 18:30:19 02/07/20 25 02/06/2025 drug scree n, urine Benzodiazepi brayan: negati ve Not Available [facility] [address], [place], [address], 02/06/2025 18:30:19 02/07/20 25 02/06/2025 drug scree n, urine Ethanol: negati ve Not Available [facility] [address], [place], [address], 02/06/2025 18:30:19 02/07/2002/06/2025 drug scree n, urine Hallucinogen s: negati ve Not Available [facility] [address], [place], [address], 02/06/2025 18:30:19 02/07/20 25 02/06/2025 drug scree n, urine Inhalants: negati ve Not Available [facility] [address], [place], [address], 02/06/2025 18:30:19 02/07/20 25 02/06/2025 drug scree n, urine Anabolic Steroids: negati ve Not Available [facility] [address], [place], [address], 02/06/2025 18:30:19 02/07/20 25 02/06/2025 drug scree n, urine Other: negati ve Not Available [facility] [address], [place], [address], 02/06/2025 18:30:19 05/15/20 25 05/15/2025 HEMOG LOBIN (HGB) HGB 10.9 g/dL (based on docume nted legal sex) 11.6-1 5.4 low Not Available [facility] (Lab) [address] [place], [address], 05/16/2025 09:55:38 05/15/20 25 05/15/2025 HEMAT OCRIT (HCT) HCT 35.7 % (based on docume nted legal sex) 34.0-4 5.0 Not Available [facility] (Lab) [address] , [place], [address], 05/16/2025 09:55:39 05/15/20 25 05/15/2025 CBC W/DIF F WBC 14.6 10'3/ uL 3.5-10 .5 high Not Available [facility] (Lab) [address], [place], [address], 05/16/2025 09:55:39 05/15/2005/15/2025 CBC W/DIF F RBC 4.01 10'6/ uL (based on docume nted legal sex) 3.80-5 .20 Not Available [facility] (Lab) [address], [place], [address], 05/16/2025 09:55:39 05/15/2005/15/2025 CBC W/DIF F HGB 10.9 g/dL (based on docume nted legal sex) 11.6-1 5.4 low Not Available [facility] (Lab) [address], [place], [address], 05/16/2025 09:55:39 05/15/2005/15/2025 CBC W/DIF F HCT 35.7 % (based on docume nted legal sex) 34.0-4 5.0 Not Available [facility] (Lab) [address], [place], [address], 05/16/2025 09:55:39 05/15/2005/15/2025 CBC W/DIF F MCV 89.0 fL 80.0-9 9.0 Not Available [facility] (Lab) [address], [place], [address], 05/16/2025 09:55:39 05/15/2005/15/2025 CBC W/DIF F MCH 27.2 pg 27.0-3 4.0 Not Available [facility] (Lab) [address], [place], [address], 05/16/2025 09:55:39 05/15/2005/15/2025 CBC W/DIF F MCHC 30.5 g/dL 32.0-3 5.5 low Not Available [facility] (Lab) [address], [place], [address], 05/16/2025 09:55:39 05/15/2005/15/2025 CBC W/DIF F RDW 14.5 % 11.0-1 5.0 Not Available [facility] (Lab) [address] [facility], [place], [address], 05/16/2025 09:55:39 05/15/2005/15/2025 CBC W/DIF F plt 218 10'3/ uL 150-40 0 Not Available [facility] (Lab) [address], [place], [address], 05/16/2025 09:55:39 05/15/2005/15/2025 CBC W/DIF F MPV 11.1 fL 8.8-12 .1 Not Available [facility] (Lab) [address] [facility], [place], [address], 05/16/2025 09:55:39 05/15/2005/15/2025 CBC W/DIF F NRBC's 0.0 % 0.0 Not Available [facility] (Lab) [address] [facility], [place], [address], 05/16/2025 09:55:39 05/15/2005/15/2025 CBC W/DIF F absolute NRBCs 0.0 10'3/ uL no refere nce range establ ished Not Available [facility] (Lab) [address] [facility], [place], [address], 05/16/2025 09:55:39 05/15/2005/15/2025 CBC W/DIF F neutrophils 78.7 % 34.0-7 3.0 high Not Available [facility] (Lab) [address], [place], [address], 05/16/2025 09:55:39 05/15/2005/15/2025 CBC W/DIF F lymphocytes 15.0 % 15.0-5 0.0 Not Available [facility] (Lab) [address] [facility], [place], [address], 05/16/2025 09:55:39 05/15/2005/15/2025 CBC W/DIF F monocytes 4.9 % 1.0-15 .0 Not Available [facility] (Lab) [address] [facility], [place], [address], 05/16/2025 09:55:39 05/15/2005/15/2025 CBC W/DIF F eosinophils 0.6 % 0.0-8. 0 Not Available [facility] (Lab) [address] [facility], [place], [address], 05/16/2025 09:55:39 05/15/2005/15/2025 CBC W/DIF F basophils 0.3 % 0.0-2. 0 Not Available [facility] (Lab) [address] [facility], [place], [address], 05/16/2025 09:55:39 05/15/2005/15/2025 CBC W/DIF F immature granulocytes 0.5 % no define d refere nce range Immat ure Granu locyt es (IG) repre sents autom ated enume ratio n of Metam yeloc ytes, Myelo cytes and Promy elocy shlomo when IG is < 5%. Blast s are not inclu ded in IG and repor ruy separ ately if prese nt. Not Available [facility] (Lab) [address], [place], [address], 05/16/2025 09:55:39 05/15/2005/15/2025 CBC W/DIF F absolute neutrophils 11.4 10'3/ uL 1.5-8. 0 high Not Available [facility] (Lab) [address] [facility], [place], [address], 05/16/2025 09:55:39 05/15/2005/15/2025 CBC W/DIF F absolute lymphocytes 2.2 10'3/ uL 1.0-4. 0 Not Available [facility] (Lab) [address] [facility], [place], [address], 05/16/2025 09:55:39 05/15/2005/15/2025 CBC W/DIF F absolute monocytes 0.7 10'3/ uL 0.2-1. 0 Not Available [facility] (Lab) [address] [facility], [place], [address], 05/16/2025 09:55:39 05/15/2005/15/2025 CBC W/DIF F absolute eosinophils 0.1 10'3/ uL 0.0-0. 6 Not Available [facility] (Lab) [address] [facility], [place], [address], 05/16/2025 09:55:39 05/15/2005/15/2025 CBC W/DIF F absolute basophils 0.1 10'3/ uL 0.0-0. 3 Not Available [facility] (Lab) [address] [facility], [place], [address], 05/16/2025 09:55:39 05/15/2005/15/2025 CBC W/DIF F absolute immature granulocytes 0.1 10'3/ uL 0.00-0 .10 Refer ence range s for nonbi nary/ inter sex or unspe cifie d gende r patie nts have not been estab lishe d. [facility]as e [facility] for range s estab lishe d for cisge nder patie nts and evalu ate in the clini patrice kristal xt of the indiv idual patie nt: https ://la boogie book. nm.or g/gen derx Not Available [facility] (Lab) [address], [place], [address], 05/16/2025 09:55:39 05/15/2005/15/2025 GTT - GESTA KHANH Islas, ACOG OB glucose, 1 hour screen 115 mg/dL 70-135 Not Available [facility] (Lab) [address] [facility], [place], [address], 05/16/2025 09:55:40 05/15/20 25 05/15/2025 URIC ACID uric acid 4.1 mg/dL 2.3-6. 6 Not Available [facility] (Lab) [address] [facility], [place], [address], 05/16/2025 09:55:40 05/15/20 25 05/15/2025 CMP(C OMPRE HENSI VE METAB OLIC PANEL ) sodium 138 mmol/ L 133-14 6 Not Available [facility] (Lab) [address] [facility], [place], [address], 05/16/2025 09:55:41 05/15/20 25 05/15/2025 CMP(C OMPRE HENSI VE METAB OLIC PANEL ) potassium 4.1 mmol/ L 3.5-5. 1 Not Available [facility] (Lab) [address] [facility], [place], [address], 05/16/2025 09:55:41 05/15/20 25 05/15/2025 CMP(C OMPRE HENSI VE METAB OLIC PANEL ) chloride 104 mmol/ L 98-107 Not Available [facility] (Lab) [address] [place], [address], 05/16/2025 09:55:41 05/15/20 25 05/15/2025 CMP(C OMPRE HENSI VE METAB OLIC PANEL ) carbon dioxide 24 mmol/ L 21-31 Not Available [facility] (Lab) [address] [place], [address], 05/16/2025 09:55:41 05/15/20 25 05/15/2025 CMP(C OMPRE HENSI VE METAB OLIC PANEL ) anion gap 10 mmol/ L 4-13 Not Available [facility] (Lab) [address] [place], [address], 05/16/2025 09:55:41 05/15/20 25 05/15/2025 CMP(C OMPRE HENSI VE METAB OLIC PANEL ) blood urea nitrogen 7 mg/dL 7-25 Not Available [facility] (Lab) [address] [facility], [place], [address], 05/16/2025 09:55:41 05/15/2005/15/2025 CMP(C OMPRE HENSI VE METAB OLIC PANEL ) creatinine 0.55 mg/dL 0.60-1 .30 low Not Available [facility] (Lab) [address] [facility], [place], [address], 05/16/2025 09:55:41 05/15/20 25 05/15/2025 CMP(C OMPRE HENSI VE METAB OLIC PANEL ) egfrcr (CKD-epi 2020) >90 mL/mi n/1.7 3_m2 >=60 Not Available [facility] (Lab) [address] [facility], [place], [address], 05/16/2025 09:55:41 05/15/20 25 05/15/2025 CMP(C OMPRE HENSI VE METAB OLIC PANEL ) calcium 8.7 mg/dL 8.3-10 .5 Not Available [facility] (Lab) [address] [facility], [place], [address], 05/16/2025 09:55:41 05/15/20 25 05/15/2025 CMP(C OMPRE HENSI VE METAB OLIC PANEL ) glucose 115 mg/dL 70-100 high Not Available [facility] (Lab) [address] [place], [address], 05/16/2025 09:55:41 05/15/20 25 05/15/2025 CMP(C OMPRE HENSI VE METAB OLIC PANEL ) protein, total 5.7 g/dL 6.4-8. 3 low Not Available [facility] (Lab) [address] [facility], [place], [address], 05/16/2025 09:55:41 05/15/20 25 05/15/2025 CMP(C OMPRE HENSI VE METAB OLIC PANEL ) albumin 3.1 g/dL 3.5-5. 0 low Not Available [facility] (Lab) [address] [facility], [place], [address], 05/16/2025 09:55:41 05/15/2005/15/2025 CMP(C OMPRE HENSI VE METAB OLIC PANEL ) ALT 9 units /L 9-43 Not Available [facility] (Lab) [address] [facility], [place], [address], 05/16/2025 09:55:41 05/15/2005/15/2025 CMP(C OMPRE HENSI VE METAB OLIC PANEL ) alkaline phosphatase 114 units /L 34-104 high Not Available [facility] (Lab) [address] [facility], [place], [address], 05/16/2025 09:55:41 05/15/20 25 05/15/2025 CMP(C OMPRE HENSI VE METAB OLIC PANEL ) AST 11 units /L 13-39 low Not Available [facility] (Lab) [address] [facility], [place], [address], 05/16/2025 09:55:41 05/15/2005/15/2025 CMP(C OMPRE HENSI VE METAB OLIC PANEL ) bilirubin, total 0.3 mg/dL 0.2-1. 2 Not Available [facility] (Lab) [address] [facility], [place], [address], 05/16/2025 09:55:41 05/15/2005/15/2025 HIV 1/2 ANTIG EN/AN TIBOD Y, REFLE X CONFI RMATI ON HIV antigen/anti body Nonrea ctive nonrea ctive HIV-1 antig en and HIV-1 /HIV- 2 antib odies were not detec ruy. No labor atory evide nce of HIV infec tion. Not Available [facility] (Lab) [address] [facility], [place], [address], 05/16/2025 09:55:41 05/15/20 25 05/15/2025 PROTE IN/CR EATIN INE RATIO , URINE creatinine, urine 13.0 mg/dL R-No refer ence range estab lishe d for this assay Not Available [facility] (Lab) [address] [facility], [place], [address], 05/16/2025 09:55:42 05/15/20 25 05/15/2025 PROTE IN/CR EATIN INE RATIO , URINE protein, urine <4 mg/dL R-No refer ence range estab lishe d for this assay Not Available [facility] (Lab) [address] [facility], [place], [address], 05/16/2025 09:55:42 05/15/20 25 05/15/2025 PROTE IN/CR [...] fican t prote inuri a. Not Available [facility] (Lab) [address] [facility], [place], [address], 05/16/2025 09:55:42 05/15/20 25 05/15/2025 RPR SCREE N, REFLE X TITER /CONF IRMAT ION RPR qualitative Nonrea ctive nonrea ctive Not Available [facility] (Lab) [address] [facility], [place], [address], 05/16/2025 09:55:42 06/26/20 25 06/26/2025 PROTE IN/CR EATIN INE RATIO , URINE creatinine, urine 177.6 mg/dL R-No refer ence range estab lishe d for this assay Not Available [facility] (Lab) [address] [facility] [address], [place], [address], 06/27/2025 04:29:05 06/26/20 25 06/26/2025 PROTE IN/CR EATIN INE RATIO , URINE protein, urine 15 mg/dL R-No refer ence range estab lishe d for this assay Not Available [facility] (Lab) [address] [facility] [address], [place], [address], 06/27/2025 04:29:05 06/26/20 25 06/26/2025 PROTE IN/CR [...] fican t prote inuri a. Not Available [facility] (Lab) [address] [facility], [place], [address], 06/27/2025 04:29:05 06/26/20 25 06/26/2025 CBC W/DIF F WBC 13.4 10'3/ uL 3.5-10 .5 high Not Available [facility] (Lab) [address] [facility], [place], [address], 06/27/2025 04:29:05 06/26/20 25 06/26/2025 CBC W/DIF F RBC 4.22 10'6/ uL (based on docume nted legal sex) 3.80-5 .20 Not Available [facility] (Lab) [address] [facility], [place], [address], 06/27/2025 04:29:05 06/26/20 25 06/26/2025 CBC W/DIF F HGB 11.9 g/dL (based on docume nted legal sex) 11.6-1 5.4 Not Available [facility] (Lab) [address] [facility], [place], [address], 06/27/2025 04:29:05 06/26/20 25 06/26/2025 CBC W/DIF F HCT 37.5 % (based on docume nted legal sex) 34.0-4 5.0 Not Available [facility] (Lab) [address] [facility], [place], [address], 06/27/2025 04:29:05 06/26/20 25 06/26/2025 CBC W/DIF F MCV 88.9 fL 80.0-9 9.0 Not Available [facility] (Lab) [address] [facility], [place], [address], 06/27/2025 04:29:05 06/26/2006/26/2025 CBC W/DIF F MCH 28.2 pg 27.0-3 4.0 Not Available [facility] (Lab) [address] [facility], [place], [address], 06/27/2025 04:29:05 06/26/20 25 06/26/2025 CBC W/DIF F MCHC 31.7 g/dL 32.0-3 5.5 low Not Available [facility] (Lab) [address] [facility], [place], [address], 06/27/2025 04:29:05 06/26/20 25 06/26/2025 CBC W/DIF F RDW 14.6 % 11.0-1 5.0 Not Available [facility] (Lab) [address] [facility], [place], [address], 06/27/2025 04:29:05 06/26/2006/26/2025 CBC W/DIF F plt 224 10'3/ uL 150-40 0 Not Available [facility] (Lab) [address] [facility], [place], [address], 06/27/2025 04:29:05 06/26/20 25 06/26/2025 CBC W/DIF F MPV 12.2 fL 8.8-12 .1 high Not Available [facility] (Lab) [address] [facility], [place], [address], 06/27/2025 04:29:05 06/26/20 25 06/26/2025 CBC W/DIF F NRBC's 0.0 % 0.0 Not Available [facility] (Lab) [address] [facility], [place], [address], 06/27/2025 04:29:05 06/26/20 25 06/26/2025 CBC W/DIF F absolute NRBCs 0.0 10'3/ uL no refere nce range establ ished Not Available [facility] (Lab) [address] [facility], [place], [address], 06/27/2025 04:29:05 06/26/20 25 06/26/2025 CBC W/DIF F neutrophils 73.2 % 34.0-7 3.0 high Not Available [facility] (Lab) [address] [facility], [place], [address], 06/27/2025 04:29:05 06/26/20 25 06/26/2025 CBC W/DIF F lymphocytes 18.3 % 15.0-5 0.0 Not Available [facility] (Lab) [address] [facility], [place], [address], 06/27/2025 04:29:05 06/26/20 25 06/26/2025 CBC W/DIF F monocytes 7.5 % 1.0-15 .0 Not Available [facility] (Lab) [address] [facility], [place], [address], 06/27/2025 04:29:05 06/26/20 25 06/26/2025 CBC W/DIF F eosinophils 0.4 % 0.0-8. 0 Not Available [facility] (Lab) [address] [place], [address], 06/27/2025 04:29:05 06/26/20 25 06/26/2025 CBC W/DIF F basophils 0.2 % 0.0-2. 0 Not Available [facility] (Lab) [address] [facility], [place], [address], 06/27/2025 04:29:05 06/26/20 25 06/26/2025 CBC W/DIF [...] separ ately if prese nt. Not Available [facility] (Lab) [address] [facility], [place], [address], 06/27/2025 04:29:05 06/26/20 25 06/26/2025 CBC W/DIF F absolute neutrophils 9.8 10'3/ uL 1.5-8. 0 high Not Available [facility] (Lab) [address] [facility], [place], [address], 06/27/2025 04:29:05 06/26/20 25 06/26/2025 CBC W/DIF F absolute lymphocytes 2.5 10'3/ uL 1.0-4. 0 Not Available [facility] (Lab) [address] [facility], [place], [address], 06/27/2025 04:29:05 06/26/20 25 06/26/2025 CBC W/DIF F absolute monocytes 1.0 10'3/ uL 0.2-1. 0 Not Available [facility] (Lab) [address] [place], [address], 06/27/2025 04:29:05 06/26/20 25 06/26/2025 CBC W/DIF F absolute eosinophils 0.1 10'3/ uL 0.0-0. 6 Not Available [facility] (Lab) [address] [facility], [place], [address], 06/27/2025 04:29:05 06/26/20 25 06/26/2025 CBC W/DIF F absolute basophils 0.0 10'3/ uL 0.0-0. 3 Not Available [facility] (Lab) [address] [facility], [place], [address], 06/27/2025 04:29:05 06/26/20 25 06/26/2025 CBC W/DIF F absolute immature granulocytes 0.1 10'3/ uL 0.00-0 .10 Refer ence range s for nonbi nary/ inter sex or unspe cifie d gende r patie nts have not been estab lishe d. [facility]as [facility] for range s estab lishe d for cisge nder patie nts and evalu ate in the clini patrice kristal xt of the indiv idual patie nt: [email or web address] :[email or web address] [email or web address] [email or web address] nm.or g/gen derx Not Available [facility] (Lab) [address] [facility], [place], [address], 06/27/2025 04:29:05 06/26/2006/26/2025 URIC ACID uric acid 4.8 mg/dL 2.3-6. 6 Not Available [facility] (Lab) [address] [facility], [place], [address], 06/27/2025 04:29:06 06/26/20 25 06/26/2025 CMP(C OMPRE HENSI VE METAB OLIC PANEL ) sodium 138 mmol/ L 133-14 6 Not Available [facility] (Lab) [address] [facility], [place], [address], 06/27/2025 04:29:06 06/26/20 25 06/26/2025 CMP(C OMPRE HENSI VE METAB OLIC PANEL ) potassium 4.0 mmol/ L 3.5-5. 1 Not Available [facility] (Lab) [address] [facility], [place], [address], 06/27/2025 04:29:06 06/26/20 25 06/26/2025 CMP(C OMPRE HENSI VE METAB OLIC PANEL ) chloride 103 mmol/ L 98-107 Not Available [facility] (Lab) [address] [facility], [place], [address], 06/27/2025 04:29:06 06/26/20 25 06/26/2025 CMP(C OMPRE HENSI VE METAB OLIC PANEL ) carbon dioxide 26 mmol/ L 21-31 Not Available [facility] (Lab) [address] [facility], [place], [address], 06/27/2025 04:29:06 06/26/2006/26/2025 CMP(C OMPRE HENSI VE METAB OLIC PANEL ) anion gap 9 mmol/ L 4-13 Not Available [facility] (Lab) [address] [facility], [place], [address], 06/27/2025 04:29:06 06/26/20 25 06/26/2025 CMP(C OMPRE HENSI VE METAB OLIC PANEL ) blood urea nitrogen 7 mg/dL 7-25 Not Available [facility] (Lab) [address] [facility], [place], [address], 06/27/2025 04:29:06 06/26/20 25 06/26/2025 CMP(C OMPRE HENSI VE METAB OLIC PANEL ) creatinine 0.66 mg/dL 0.60-1 .30 Not Available [facility] (Lab) [address] [facility], [place], [address], 06/27/2025 04:29:06 06/26/2006/26/2025 CMP(C OMPRE HENSI VE METAB OLIC PANEL ) egfrcr (CKD-epi 2020) >90 mL/mi n/1.7 3_m2 >=60 Not Available [facility] (Lab) [address] [facility], [place], [address], 06/27/2025 04:29:06 06/26/20 25 06/26/2025 CMP(C OMPRE HENSI VE METAB OLIC PANEL ) calcium 9.0 mg/dL 8.3-10 .5 Not Available [facility] (Lab) [address] [facility], [place], [address], 06/27/2025 04:29:06 06/26/20 25 06/26/2025 CMP(C OMPRE HENSI VE METAB OLIC PANEL ) glucose 74 mg/dL 70-100 Not Available [facility] (Lab) [address] [facility], [place], [address], 06/27/2025 04:29:06 06/26/20 25 06/26/2025 CMP(C OMPRE HENSI VE METAB OLIC PANEL ) protein, total 6.1 g/dL 6.4-8. 3 low Not Available [facility] (Lab) [address] [place], [address], 06/27/2025 04:29:06 06/26/20 25 06/26/2025 CMP(C OMPRE HENSI VE METAB OLIC PANEL ) albumin 3.3 g/dL 3.5-5. 0 low Not Available [facility] (Lab) [address] [place], [address], 06/27/2025 04:29:06 06/26/20 25 06/26/2025 CMP(C OMPRE HENSI VE METAB OLIC PANEL ) ALT 36 units /L 9-43 Not Available [facility] (Lab) [address] [place], [address], 06/27/2025 04:29:06 06/26/20 25 06/26/2025 CMP(C OMPRE HENSI VE METAB OLIC PANEL ) alkaline phosphatase 131 units /L 34-104 high Not Available [facility] (Lab) [address] [place], [address], 06/27/2025 04:29:06 06/26/20 25 06/26/2025 CMP(C OMPRE HENSI VE METAB OLIC PANEL ) AST 20 units /L 13-39 Not Available [facility] (Lab) [address] [facility], [place], [address], 06/27/2025 04:29:06 06/26/20 25 06/26/2025 CMP(C OMPRE HENSI VE METAB OLIC PANEL ) bilirubin, total 0.3 mg/dL 0.2-1. 2 Not Available [facility] (Lab) [address] [facility], [place], [address], 06/27/2025 04:29:06 07/10/20 25 07/10/2025 CULTU RE: [...] Resul ting Lab: [facility] [address] [facility] [address] Tel: CULTU RE ----- ----- ----- --- No Group B strep isola ruy at 2 days (bailee ctive broth enhan cemen t) Not Available [facility] (Lab) [address] [facility], [place], [address], 07/13/2025 15:08:33 02/07/20 25 02/06/2025 US, opal lemos, nucha l trans lucen cy No observ ation record ed. [email or web address] [facility] [address], [place], [address], 02/06/2025 17:26:10 02/07/20 25 02/06/2025 US, opal lemos follo w-up No observ ation record ed. Vivi [address], [place], [address], 02/07/2025 11:49:39 03/27/20 25 03/27/2025 US, obste tric, 2nd or 3rd trime ster No observ ation record ed. [email or web address] [facility] [address], [place], [address], 03/27/2025 16:50:03 03/27/20 25 03/27/2025 US, obste tric, 2nd or 3rd trime ster No observ ation record ed. [email or web address] [address], [place], [address], 04/01/2025 20:55:55 04/24/20 25 04/24/2025 US, obste tric, follo w-up No observ ation record ed. [email or web address] [facility] [address], [place], [address], 04/24/2025 18:50:20 04/24/20 25 04/24/2025 US, obste tric, follo w-up No observ ation record ed. [email or web address] [address], [place], [address], 05/02/2025 18:12:06 05/05/20 25 05/05/2025 US, obste tric, limit ed No observ ation record ed. [address] [facility], [place], [address], 05/08/2025 11:23:32 05/05/20 25 05/05/2025 US, obste tric, limit ed No observ ation record ed. [address] [facility], [place], [address], 05/08/2025 11:23:15 05/06/20 25 05/05/2025 non-s tress test No observ ation record ed. [address], [place], [address], 05/14/2025 16:17:57 06/12/2006/12/2025 US, obste tric, follo w-up No observ ation record ed. [email or web address] [facility] [address], [place], [address], 06/12/2025 13:37:49 06/12/2006/12/2025 US, obste tric, follo w-up No observ ation record ed. [email or web address] Viv[address], [place], [address], 06/14/2025 12:40:46 06/26/2006/26/2025 non-s tress test No observ ation record ed. [email or web address] [facility] [address], [place], [address], 06/26/2025 17:40:02 06/26/20 non-s tress test No observ ation record ed. [email or web address] [facility] [address], [place], [address], 06/26/2025 17:40:25 07/03/20 25 07/03/2025 US, opal tric, bioph ysica l profi le + non-s tress test No observ ation record ed. [email or web address] [facility] [address], [place], [address], 07/03/2025 10:21:51 07/03/2007/03/2025 US, obste tric, bioph ysica l profi le + non-s tress test No observ ation record ed. [email or web address] [address], [place], [address], 07/03/2025 10:36:03 07/03/2007/03/2025 non-s tress test No observ ation record ed. [email or web address] [address] [address], [place], [address], 07/03/2025 17:34:00 07/03/20 non-s tress test No observ ation record ed. [address], [place], [address], 07/03/2025 16:02:31 07/10/2007/10/2025 US, obste tric, follo w-up No observ ation record ed. [email or web address] Vivi [address], [place], [address], 07/10/2025 11:53:53 07/10/2007/10/2025 US, obste tric, follo w-up No observ ation record ed. [facility] [address], [place], [address], 07/10/2025 13:24:28 07/10/2007/10/2025 US, obste tric, bioph ysica l profi le + non-s tress test No observ ation record ed. [facility] [address], [place], [address], 07/10/2025 13:24:41 07/10/2007/10/2025 non-s tress test No observ ation record ed. [address], [place], [address], 07/10/2025 16:54:42 07/10/20 non-s tress test No observ ation record ed. [address], [place], [address], 07/10/2025 16:55:51 07/17/2007/17/2025 non-s tress test No observ ation record ed. [email or web address] [facility] [address], [place], [address], 07/19/2025 11:50:49 07/17/20 non-s tress test No observ ation record ed. [facility], [place], [address], 07/17/2025 10:56:47 07/17/2007/17/2025 US, obste tric, bioph ysica l profi le + non-s tress test No observ ation record ed. [email or web address] [facility] [address], [place], [address], 07/17/2025 13:24:17 07/17/2007/17/2025 US, obste tric, bioph ysica l profi le + non-s tress test No observ ation record ed. [email or web address] Vivi [address], [place], [address], 07/17/2025 11:37:56 07/24/2007/24/2025 US, obste tric, bioph ysica l profi le + non-s tress test No observ ation record ed. [email or web address] Vivi [address], [place], [address], 07/24/2025 11:16:54 07/24/2007/24/2025 US, obste tric, bioph ysica l profi le + non-s tress test No observ ation record ed. [email or web address] [facility] [address], [place], [address], 07/24/2025 18:17:48 07/24/20 25 07/24/2025 non-s tress test No observ ation record ed. [email or web address] [facility] [address], [place], [address], 07/24/2025 18:19:09 07/24/20 25 non-s tress test No observ ation record ed. [email or web address] [facility] [address], [place], [address], 07/24/2025 16:00:08 Result Notes None recorded. Problems Name Problem SNOMED Code Status Onset Date Resolution Date Notes Provider Name and Address Organization Details Recorded Time Pregnanc y test negative 599822375 Completed 201409/02/2020 Pregnanc y examinat ion or test, negative result;R ecorded Elsewher e: No Locat ion: [facility] S ource: EHR Clinical Office Technician elena: N Practi ce ID: 0001 Grabiel lable Time: 03:15:00 PM Beverley lopez, [facility] 0 17:56:19 Obesity [id number] Completed 201409/03/2020 Obesity, unspecif ied;Prac bronosn ID: 0001 Beverley lopez, [facility] 0 14:20:47 Speciali zed medical examinat ion Completed 201409/02/2020 Routine gynecolo gical examinat ion;Prac bronson ID: 0001 Beverley lopez, [facility] 0 17:57:40 Screenin g for malignan t neoplasm of cervix Completed 201409/02/2020 Pap Smear;Pr actice ID: 0001 Beverley lopez, [facility] 0 17:56:38 Educatio n Completed 201409/02/2020 Family planning ;Recorde d Elsewher e: No Locat ion: [facility] S ource: EHR Clinical Office Technician elena: N Practi ce ID: 0001 Grabiel lable Time: 04:00:00 PM Beverley Sun [facility], [facility] 0 17:55:08 Female rosa m covington [id number] Completed 201410/17/2020 Rosa M covington, female, of unspecif ied origin;P wandytice ID: 0001 Beverley lopez [facility] 1 10:55:45 Body mass index 30+ - obesity [id number] Completed 201510/17/2020 Body mass index (BMI) 39.0-39. 9, adult;Re corded Elsewher e: No Locat ion: [facility] S ource: EHR Clinical Office Technician elena: N Practi ce ID: 0001 Grabiel lable Time: 11:00:00 AM Beverley lopez [facility] 1 10:55:40 Syncope and collapse [id number] Completed 201510/17/2020 Syncope and collapse ;Recorde d Elsewher e: No Locat ion: [facility] S ource: EHR Clinical Office Technician elena: N Practi ce ID: 0001 Grabiel lable Time: 10:30:00 AM Beverley lopez [facility] 1 10:56:12 Gestatio n less than 9 weeks [id number] Completed 201509/02/2020 Less than 8 weeks gestatio n of pregnanc y;Practi ce ID: 0001 Beverley lopez [facility] 0 17:55:27 Pregnanc y, childbir th and puerperi um finding Completed 201510/17/2020 Encntr for suprvsn of normal first preg, first trimeste r;Practi ce ID: 0001 Beverley lopez [facility] 1 10:55:59 Gestatio n period, 12 weeks [id number] Completed 201509/02/2020 12 weeks gestatio n of pregnanc y;Practi ce ID: 0001 Beverley lopez [facility] 0 17:55:30 Pregnanc y, childbir th and puerperi um finding Completed 201509/02/2020 Encntr for suprvsn of normal first preg, second trimeste r;Practi ce ID: 0001 Beverley lopez, [facility] 0 17:56:27 Gestatio n period, 32 weeks [id number] Completed 201509/02/2020 32 weeks gestatio n of pregnanc y;Practi ce ID: 0001 Beverley Dos Santostz jessiac, [facility] 0 17:55:35 Pregnanc y, childbir th and puerperi um finding Completed 201509/03/2020 Encounte r for supervis ion of normal first pregnanc y, third trimeste r;Record ed Elsewher e: No Locat ion: [facility] S ource: EHR Clinical Office Technician elena: N Practi ce ID: 0001 Grabiel lable Time: 05:30:00 PM Beverley Dos Santostz jessica, [facility] 0 14:20:36 Gestatio n period, 33 weeks [id number] Completed 201509/02/2020 33 weeks gestatio n of pregnanc y;Record ed Elsewher e: No Locat ion: [facility] S ource: EHR Clinical Office Technician elena: N Practi ce ID: 0001 Grabiel lable Time: 09:00:00 AM Beverley Dos Santostz jessica, [facility] 0 17:55:39 Normal pregnanc y in multigra [place] [id number] Completed 201509/02/2020 Encounte r for suprvsn of normal pregnanc y, third trimeste r;Practi ce ID: 0001 Beverley Sun jessica, [facility] 0 17:56:11 Gestatio n period, 34 weeks [id number] Completed 201509/02/2020 34 weeks gestatio n of pregnanc y;Practi ce ID: 0001 Beverley lopez, [facility] 0 17:55:42 Pregnanc y-induce d hyperten tonya Completed 201503/27/2021 Gestatio nal htn w/o signific ant proteinu che, third trimeste r;Record ed Elsewher e: No Locat ion: Sally malik [facility] S ource: EHR Clinical Office Technician elena: N Practi ce ID: [email or web address] Grabiel lable Time: 03:00:00 PM Beverley Corinne lopez, [facility] 1 16:36:34 Gestatio n period, 36 weeks [id number] Completed 201509/02/2020 36 weeks gestatio n of pregnanc y;Practi ce ID: 0001 Beverley Corinne lopez, [facility] 0 17:55:48 Single live from singleto n pregnanc y [id number] Completed 201509/03/2020 Single live ;Pr actice ID: 0001 Beverley Sun null, [facility] 0 14:20:54 Gestatio n period, 37 weeks [id number] Completed 201509/02/2020 37 weeks gestatio n of pregnanc y;Practi ce ID: 0001 Beverley Sun null, [facility] 0 17:55:50 Pregnanc y-induce d hyperten tonya Completed 201509/02/2020 Gestatio nal htn w/o signific ant proteinu che, unsp trimeste r;Practi ce ID: 0001 Beverley lopez, [facility] 0 17:57:29 Hyperten sive disorder [id number] Completed 201503/27/2021 Benign hyperten tonya;Rec orded Elsewher e: No Locat ion: [facility] S ource: EHR Clinical Office Technician elena: N Practi ce ID: 0001 Grabiel lable Time: 10:30:00 AM Beverley Corinne lopez [facility] 5 19:18:30 Non-prot einuric hyperten tonya of pregnanc y [id number] Completed 201510/17/2020 Gestatnl htn without signific ant protein, comp the puerp;Pr actice ID: 0001 Beverley Corinne lopez, [facility] 1 10:56:02 Lochia finding Completed 201510/17/2020 Encounte r for routine postpart um follow-u p;Practi ce ID: 0001 Beverley Sun jessica, [facility] [address] 10:55:[address] Concept Completed 201809/02/2020 Encntr for lead atg developer exam (general ) (routine ) w/o abn findings ;Recorde d Elsewher e: No Locat ion: Sally malik [facility] S ource: EHR Clinical Office Technician elena: N Practi ce ID: 0001 Grabiel lable Time: 10:30:00 AM Beverley Corinne lopez [facility] 0 17:56:45 Pregnanc y detectio n examinat ion Completed 201809/02/2020 Encounte r for pregnanc y test, result positive ;Practic e ID: 0001 Beverley lopez, [facility] 0 17:56:17 Uterine size for dates discrepa ncy Completed 201810/17/2020 Uterine size-malia e discrepa ncy, first trimeste r;Practi ce ID: 0001 Beverley lopez, [facility] 1 10:56:17 Secondar y amenorrh ea [id number] Completed 201810/17/2020 Secondar y amenorrh ea;Recor ded Elsewher e: No Locat ion: Sally malik [facility] S ource: EHR Clinical Office Technician elena: N Practi ce ID: 0001 Grabiel lable Time: 10:30:00 AM Beverley Corinne [facility], [facility] 1 10:56:05 Infectio n screenin g Completed 201809/02/2020 Encounte r for screenin g for oth infec/pa rastc diseases ;Recorde d Elsewher e: No Locat ion: [facility] S ource: EHR Clinical Office Technician elena: N Practi ce ID: [id number] Grabiel lable Time: 10:30:00 AM Beverley Sun [facility], [facility] 0 17:56:03 Syphilis test finding [id number] Completed 201809/03/2020 Encntr screen for infectio ns w sexl mode of transmis s;Record ed Elsewher e: No Locat ion: [facility] S ource: EHR Clinical Office Technician elena: N Practi ce ID: [id number] Garbiel lable Time: 10:30:00 AM Beverley Sun [facility], [facility] 0 14:20:58 Finding of viabilit y of pregnanc y [id number] Completed 201809/02/2020 Pregnanc y w inconclu sive viabilit y, unsp;Pra ctice ID: 0001 Beverley Sun [facility], [facility] 0 17:55:21 Finding of contents of cervix [id number] Completed 201809/02/2020 Weeks of gestatio n of pregnanc y not specifie d;Practi ce ID: 0001 Beverley Sun [facility], [facility] 0 17:55:14 Threaten ed miscarri age [id number] Completed 201810/17/2020 Threaten ed ;Recorde d Elsewher e: No Locat ion: [facility] S ource: EHR Clinical Office Technician elena: N Practi ce ID: [id number] Grabeil lable Time: 12:30:00 PM Beverley Sun [facility], [facility] 1 10:56:15 Gestatio n period, 8 weeks [id number] Completed 201809/02/2020 8 weeks gestatio n of pregnanc y;Practi ce ID: 0001 Beverley lopez, [facility] [facility] 0 17:55:55 Rubella screenin g status [id number] Completed 201809/02/2020 Encounte r for antenata l screenin g, unspecif ied;Benitez rded Elsewher e: No [facility] S ource: EHR Clinical Office Technician elena: N Practi ce ID: 0001 Grabiel lable Time: 04:30:00 PM Beverley lopez, [facility] 0 17:56:34 Antenata l screenin g Completed 201809/02/2020 Encounte r for antenata l screenin g for nuchal transluc ency;Pra ctice ID: 0001 Beverley lopez, [facility] 0 17:57:11 Antenata l screenin g for malforma tion Completed 201809/02/2020 Encounte r for antenata l screenin g for malforma tions;Re corded Elsewher e: No Locat ion: [facility] S ource: EHR Clinical Office Technician elena: N Practi ce ID: 0001 Grabiel lable Time: 08:15:00 AM Beverley lopez, [facility] 0 17:57:13 Gestatio n period, 29 weeks 12594858 Completed 201809/02/2020 29 weeks gestatio n of pregnanc y;Record ed Elsewher e: No Locat ion: [facility] S ource: EHR Clinical Office Technician elena: N Practi ce ID: 0001 Grabiel lable Time: 03:45:00 PM Beverley lopez [facility] 0 17:55:32 Clinical finding Completed 201810/17/2020 Tachycar rishi, unspecif ied;Benitez rded Elsewher e: No Locat ion: [facility] alberto malik [facility] S ource: EHR Clinical Office Technician elena: N Mathieuti ce ID: 0001 Grabiel lable Time: 11:15:00 AM Beverley lopez, [facility] 1 10:55:44 Clinical finding Completed 201809/02/2020 Obesity, unspecif ied;Benitez rded Elsewher e: No Locat ion: [facility]h tracie [facility] S ource: EHR Clinical Office Technician elena: N Mathieuti ce ID: 0001 Grabiel lable Time: 03:00:00 PM Beverley Sun [facility], [facility] 0 17:55:24 Finding of body mass index 350240625 Completed 201809/02/2020 Body mass index (BMI) 40.0-44. 9, adult;Re corded Elsewher e: No Locat ion: [facility] alberto malik [facility] S ource: [facility] Presbyter[facility] elena: N Mathieuti ce ID: 0001 Grabiel lable Time: 02:00:00 PM Beverley Sun jessica, [facility] 0 17:56:59 Gestatio n period, 35 weeks 91974318 Completed 201809/02/2020 35 weeks gestatio n of pregnanc y;Record ed Elsewher e: No Locat ion: [facility] alberto malik [facility] S ource: EHR Clinical Office Technician elena: N Mathieuti ce ID: 0001 Grabiel lable Time: 02:00:00 PM Beverley lopez, [facility] 0 17:55:44 Severe obesity complica ting pregnanc y 3236210177 1058278 Completed 201810/17/2020 Obesity complica ting pregnanc y, third trimeste r;Record ed Elsewher e: No Locat ion: Liviaella tracie [facility] S ource: EHR Clinical Office Technician elena: N Mathieuti ce ID: 0001 Grabiel lable Time: 03:00:00 PM Beverley lopez [facility] 10:56:10 Gestatio n period, 38 weeks 10898849 Completed 201809/02/2020 38 weeks gestatio n of pregnanc y;Record ed Elsewher e: No Locat ion: Sally malik [facility] S ource: EHR Clinical Office Technician elena: N Practi ce ID: 0001 Grabiel lable Time: 11:00:00 AM Beverley lopez [facility] 0 17:55:53 Hyperten tonya in the obstetri c context Completed 201810/17/2020 Pre-exis ting essentia l htn comp pregnanc y, third trimeste r;Practi ce ID: 0001 Beverley lopez, [facility] 10:55:52 Attentio n deficit hyperact ivity disorder 207732886 Active 2024 stopped taking medicati on when found out Beverley lopez [facility] 19:38:30 Mixed anxiety and depressi ve disorder 478645685 Active 2024 Beverley lopez [facility] 19:37:00 Hyperten sive disorder 22873792 Active 2024 Medina Whitaker, JENNIFER [address], [place], [address], [facility] 17:26:39 Headache 61884762 Active 2024 Beverley lopez, [facility] 19:37:14 Pregnanc y 12715596 Active 2024 Beverley lopez [facility] 19:36:35 Mixed anxiety and depressi ve disorder 042081932 Active 2024 Beverley lopez, [facility] 19:37:00 Headache 75054991 Active 2024 Beverley lopez [facility] 19:37:14 Past pregnanc y history of gestatio nal hyperten tonya 446717502 Active 2024 2016 pregnanc y start bASA x 2 daily Medina Whitaker CNM [address], [place], [address], [facility] 17:26:14 Attentio n deficit hyperact ivity disorder 742354553 Active 2024 stopped taking medicati on when found out Beverley lopez [facility] 19:38:30 Obesity 697559489 Active 2024 antenata l testing @ [facility] 20:[facility]:07 Hyperten tonya AND/OR vomiting complica ting pregnanc y childbir th AND/OR puerperi um 489059117 Active 2024 Medina Whitaker CNM [address], [place], [address], [facility] 5 15:51:32 Notes:Encounter for antenata l screening of mother Recorded Elsewhere: No Location: [facility] Source: EHR Chronic: N Practice ID: 0001 Billable Time: 10:30:00 AM Encounter for screening of mother Practice ID: [id number] Encounter for screening of mother Recorded Elsewhere: No Location: [facility] Source: EHR Chronic: N Practice ID: 0001 Billable Time: 10:30:00 AM Encounter for screening of mother Practice ID: 0001 Problem Notes None recorded. Procedures Surgical History Date Name Laterality Status Provider Name and Address Organization Details Recorded Time Date of Last Pap Smear completed Beverley Sun [facility] 02/06/2025 08:37:03 1 extraction of wisdom tooth completed Beverley Sun [facility] 02/06/2025 19:33:27 Imaging Results None recorded. [...] Prescrib ed Elsewher e: No Locat ion: [facility] odify By: geovanny Bosch ter DateTime : 08/25/20 08:06:19 AM [...] Prescrib ed Elsewher e: No Locat ion: [facility] odify By: [email or web address] Bosch ter DateTime : [...] Prescrib camilo Fritz e: No Locat ion: [facility] M odify By: [email or web address] z [...] Prescrib camilo Fritz e: No Locat ion: Liviaella tracie [facility] M odify By: [email or web address] Encounte r DateTime : [...] Updated DateTime 07/24/2025 167.64 cm 50.4 kg/m2 313430.82 g 131/84 mm[Hg] Barbie Coronado [facility] 07/24/2025 10:38:14 Date Recorded Body height Body mass index (BMI) Body weight Systolic And Diastolic Provider Name and Address Organization Details Last Updated DateTime 07/24/2025 167.64 cm 50.4 kg/m2 992718.82 g 131/84 mm[Hg] Zita Westfall [facility] 07/24/2025 15:57:46 Social History Question Answer Notes LastModified by Organizat ion Details LastModified Time Tobacco Smoking Status Never Smoker Beverley Sun [facility], [facility] 03/21/2020 13:16:23 Do You Have An Advance Directive? No Information n ot available 01/07/2025 If You Are , What Was Your Level Of Alcohol Consumption Prior To ? Occasional [email or web address] Information not available 10/17/2020 Are You Blind Or Do You Have Difficulty Seeing? No [email or web address] Information n ot available 03/27/2021 What Is Your Level Of Caffeine Consumption? Occasional [email or web address] Information not available 10/17/2020 In The 14 Days Before Symptom Onset, Have You Had Close Contact With A Laboratory-confirm ed COVID-19 While That Case Was Ill? No [email or web address] Information n ot available 03/27/2021 In The 14 Days Before Symptom Onset, Have You Had Close Contact With A Person Who Is Under Investigation For COVID-19 While That Person Was Ill? No [email or web address] Information not available 03/27/2021 Have You Been To An Area Known To Be High Risk For COVID-19? No [email or web address] Information not available 03/27/2021 Are You Deaf Or Do You Have Serious Difficulty Hearing? No [email or web address] Information not available 03/27/2021 What Type Of Diet Are You Following? REGULAR [email or web address] Information n ot available 03/27/2021 What Is The Highest Grade Or Level Of School You Have Completed Or The Highest Degree You Have Received? [id number] Information not available 01/07/2025 What Was The Date Of Your Most Recent Tobacco Screening? 02/06/2025 [email or web address] Information not available 02/06/2025 Have You Ever Been Counseled For Unhealthy Alcohol Use? No [email or web address] Information not available 10/17/2020 Do You Use Protection During Sex? No Information not available 01/07/2025 Do You Use Your Seat Belt Or Car Seat Routinely? Yes [email or web address] Information not available 03/27/2021 Do You Have Smoke And Carbon Monoxide Detectors In Your Home? Yes Information not available 03/27/2021 How Much Tobacco Do You Smoke? No [email or web address] Information not available 03/21/2020 Do You Use Sunscreen Routinely? Yes Information not available 03/27/2021 Has Tobacco Cessation Counseling Been Provided? No [email or web address] Information not available 10/17/2020 Have You Used IV Drugs? No Information not available 01/07/2025 Do You Have Difficulty Walking Or Climbing Stairs? No [email or web address] Information not available 02/06/2025 Sex: Unknown Functional Status Question Answer Note LastModified by Organizat ion Details LastModified Time Do you use any illicit or recreational drugs? No [email or web address] Information not available 10/17/2020 Do you or have you ever used any other forms of tobacco or nicotine? No [email or web address] Information not available 10/17/2020 What is your level of alcohol consumption? None Information not available 02/06/2025 Do you or have you ever used smokeless tobacco? Never used smokeless tobacco [email or web address] Information not available 03/21/2020 Are you able to walk independently without assistance or assistive devices? YESWOREST [email or web address] Information not available 03/27/2021 Are you able to care for yourself independently? Yes [email or web address] Information not available 02/06/2025 Do you have difficulty dressing, bathing, grooming, or toileting? No [email or web address] Information not available 02/06/2025 Do you or have you ever used e-cigarettes or vape? Never used electronic cigarettes [email or web address] Information not available 03/21/2020 What is your exercise level? Occasional [email or web address] Information not available 03/21/2020 Mental Status Question Answer Note LastModified by Organization D etails LastModified Time Do you feel stressed (tense, restless, nervous, or anxious, or unable to sleep at night)? [id number] [email or web address] Information not available 03/27/2021 Family History Relationship Description Onset Age of this Age Resolved Age Notes LastModified by Organization Details LastModified Time Mother Disorder of thyroid gland [email or web address] Not available 03/21 13:15:49 Father Diabetes mellitus [email or web address] Not available 03/21 13:16:06 Maternal Grandfather Diabetes mellitus [email or web address] Not available 03/21 13:16:06 Maternal Grandmother Malignant [...] ICD10 Code Diagnosis IMO Codes Diagnosis Note [id number] Medina Whitaker CNM [facility] [address],[facility] [place] [address] 06/26/2025 14:50:38 06/26/2025 15:53:19 Gestation period, 33 weeks 24933123 Z3A.33 3546491 [id number] Medina Whitaker CNM [facility] [address] [address] 06/26/2025 15:32:15 06/26/2025 17:47:00 Hypertension AND/OR vomiting complicating childbirth AND/OR puerperium 791213691 O13.3 7839423 [id number] Lobito Salinas MD [facility] [address],[place] [address] 07/03/2025 09:24:44 07/03/2025 10:27:55 -induced hypertension 57153067 O13.3 Z3A.34 995737 [id number] Medina Whitaker [facility] [address],[place] [address] 07/03/2025 09:24:58 07/03/2025 16:17:39 Maternal obesity complicating , childbirth and the puerperium, antepartum 9682651385 07 O99.210 3592860561 rf phentermin e, ok for one more refill then must take break [id number] [facility] [address],[place] [address] 1 07/03/2025 09:25:15 07/03/2025 11:45:20 Gestation period, 34 weeks 72761871 Z3A.34 4777816 [id number] Lobito Salinas MD [facility] [address] [place] [address] 07/10/2025 09:26:17 07/10/2025 10:22:03 Chronic hypertension complicating AND/OR reason for care during 55433812 O10.919 O36.60X0 O99.210 Z3A.35 83542347 [id number] [facility] [address] [place] [address] 07/10/2025 09:27:40 07/10/2025 17:20:31 Maternal obesity complicating , childbirth and the puerperium, antepartum 8306933433 07 O99.210 1774766028 rf phentermin e, ok for one more refill then must take break [id number] Medina Whitaker CNM [facility] [address],[place] [address] 07/10/2025 09:27:58 07/10/2025 12:08:57 Gestation period, 35 weeks 53065482 Z3A.35 [id number] Lobito Salinas MD [facility] [address],[place] [address] 07/17/2025 09:20:51 07/17/2025 11:18:20 -induced hypertension 97985932 O13.3 O99.213 Z3A.36 640675 [id number] MIKE OROZCO MD [facility] [address],[place] [address] 07/17/2025 09:21:09 07/17/2025 11:18:15 Maternal obesity complicating , childbirth and the puerperium, antepartum 1733535727 07 O99.210 5658954432 [id number] Medina Whitaker [facility] [address],[place] [address] 07/17/2025 09:21:21 07/17/2025 11:41:53 Gestation period, 36 weeks 56758372 Z3A.36 5567432 [id number] Lobito Salinas MD [facility] [address],[place] [address] 07/24/2025 09:18:30 07/24/2025 12:01:03 Maternal hypertension 122058093 O16.3 O99.210 Z3A.37 6503004 [id number] Medina Whitaker CNM [facility] [address],[place] [address] 07/24/2025 09:18:44 07/24/2025 16:13:38 Maternal obesity complicating , childbirth and the puerperium, antepartum 1838148367 07 O99.210 2220759603 [id number] [facility] [address],[place] [address] 07/24/2025 09:18:55 07/24/2025 13:26:59 Gestation period, 37 weeks 79730397 Z3A.37 [id number] Health Concerns Section Related Observation LastModified by Organization Detai ls LastModified Time None Recorded Concern Status LastModified by Organization Details LastModified Time None Recorded Payers Encounter Date Sequence Insurance Name Policy Number Policy [place] Covered Member ID Ventura Member ID Guarantor Name 07/24/2025 1 [facility] [id number] Apolinar Rivers [id number] Whit Rivers Notes Date Note Type Note Provider Name and Address Organization Details Recorded Time 07/24/2025 text/html Generic HPI TemplateReported by Patient Medina Herber Whitaker CNM [address], [place], [address], [facility] 07/24/2025 13:05:42 OBGyn Episode Ob Episode Information Episode Created Date Number of Fetuses Patient Bloodtype Patient rh Status Prepregnancy Weight lbs Domestic Partner Domestic Partner Phone Father Name Equipment Oiler Status 02/07/20 25 1 O Positive 291 Apolinar Rivers OPEN Fetus Data First Name Last Name Admitted to NICU Weight (g) Sex Living Outcome Pediatric Complications Fetus ID Race Codes Race Delivery Type [id number] Problems Problem Notes Problem Name Start Date End Date Resolution Snomed Code Not e Attention deficit hyperactivity disorder 02/06/2025 841333719 stopped taking medication when found out Past history of gestational hypertension 02/06/2025 384314049 2015 pregnancys tart bASA x 2 daily Obesity 02/07/2025 269009657 testing @ 34wks Headache 02/06/2025 00397103 Mixed anxiety and depressive disorder 02/06/2025 511511631 Hypertension AND/OR vomiting complicating childbirth AND/OR puerperium 06/26/2025 417894181 Alfa Calculation Initial Alfa Date Initial Exam [...] Weight in lbs Pre/Post Dialysis Refused Weight 289.658145142102 BP Diastolic BP Location Tested BP Systolic [...] Weight in lbs Pre/Post Dialysis Refused Weight 294.457361192003 BP Diastolic BP Location Tested BP Systolic [...] Type Weight in lbs Pre/Post Dialysis Refused 297.306444167347 BP Diastolic BP Location Tested BP Systolic [...] Type Weight in lbs Pre/Post Dialysis Refused 302.989076796918 BP Diastolic BP Location Tested BP Systolic [...] Weight in lbs Pre/Post Dialysis Refused Weight 305.492520780735 BP Diastolic BP Location Tested BP Systolic [...] Weight in lbs Pre/Post Dialysis Refused Weight 306.055083908908 BP Diastolic BP Location Tested BP Systolic [...] Weight in lbs Pre/Post Dialysis Refused Weight 305.388061716382 BP Diastolic BP Location Tested BP Systolic [...] Weight in lbs Pre/Post Dialysis Refused Weight 307.695517403952 BP Diastolic BP Location Tested BP Systolic [...] Type Weight in lbs Pre/Post Dialysis Refused 308.056223301439 BP Diastolic BP Location Tested BP Systolic BP Type 81 L arm 132 sitting Fetus Heart Rate Present Fetus Movement A Yes Comments Flowsheet Date 07/03/2025 Bunn Score Blood Edema Fundus Height Fundus Units Glucose Ketones Leukocytes Nitrite Labor Signs Protein Cervic Dilation Cervic Effacement Cervic Station Type Weight in lbs Pre/Post Dialysis Refused 308.742311408950 BP Diastolic BP Location Tested BP Systolic [...] Weight in lbs Pre/Post Dialysis Refused Weight 310.218395480914 BP Diastolic BP Location Tested BP Systolic BP Type 85 L arm 128 sitting Fetus Heart Rate Present Fetus Movement A Yes Comments Flowsheet Date 07/10/2025 Bunn Score Blood Edema Fundus Height Fundus Units Glucose Ketones Leukocytes Nitrite Labor Signs Protein Cervic Dilation Cervic Effacement Cervic Station Type Weight in lbs Pre/Post Dialysis Refused 310.374836808476 BP Diastolic BP Location Tested BP Systolic [...] Type Weight in lbs Pre/Post Dialysis Refused 311.900111775262 BP Diastolic BP Location Tested BP Systolic [...] Weight in lbs Pre/Post Dialysis Refused Weight 312.158892178091 BP Diastolic BP Location Tested BP Systolic BP Type 84 L arm 131 sitting Fetus Heart Rate Present Fetus Movement A Yes Comments Flowsheet Date 07/24/2025 Bunn Score Blood Edema Fundus Height Fundus Units Glucose Ketones Leukocytes Nitrite Labor Signs Protein Cervic Dilation Cervic Effacement Cervic Station 1cm 50% -2 Type Weight in lbs Pre/Post Dialysis Refused Weight 312.371434770704 BP Diastolic BP Location Tested BP Systolic [...]
--- OUTSIDE RECORDS SUMMARY | 2025-07-26 05:57 | XMS_ITS | Continuity of Care Document ---
Author Organization 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 Patient TargetsNo targets recorded. Patient InstructionsNo instructions recorded. Reason for Referral None Reported. Results Created Date Observation Date Name Description Value Unit Range Abnormal Flag Note LastModifiedBy Organization Detail LastModifiedTime 02/15/2002/14/2025 [UNIT Y] ANEUP LOIDY NIPT fraction 3.9% normal Not Available [facility] [address], [place], [address], 02/14/2025 01:55:32 02/15/20 25 02/14/2025 [UNIT Y] ANEUP LOIDY NIPT 22Q11.2 microdeletio n LOW RISK <1 in 10,000 normal Not Available [facility] [address], [place], [address], 02/14/2025 01:55:32 02/15/20 25 02/14/2025 [UNIT Y] ANEUP LOIDY NIPT sex chromosome aneuploidy NOT DETECT ED normal Not Available [facility] [address], [place], [address], 02/14/2025 01:55:32 02/15/20 25 02/14/2025 [UNIT Y] ANEUP LOIDY NIPT monosomy X LOW RISK <1 in 10,000 normal Not Available [facility] [address], [place], [address], 02/14/2025 01:55:32 02/15/20 25 02/14/2025 [UNIT Y] ANEUP LOIDY NIPT trisomy 13 LOW RISK <1 in 10,000 normal Not Available [facility] [address], [place], [address], 02/14/2025 01:55:32 02/15/20 25 02/14/2025 [UNIT Y] ANEUP LOIDY NIPT trisomy 18 LOW RISK <1 in 10,000 normal Not Available [facility] [address], [place], [address], 02/14/2025 01:55:32 02/15/20 25 02/14/2025 [UNIT Y] ANEUP LOIDY NIPT trisomy 21 LOW RISK <1 in 10,000 normal Not Available [facility] [address], [place], [address], 02/14/2025 01:55:32 02/15/20 25 02/14/2025 [UNIT Y] ANEUP LOIDY NIPT sex MALE normal Not Available [facility] [address], [place], [address], 02/14/2025 01:55:32 02/15/20 25 02/14/2025 [UNIT Y] ANEUP LOIDY NIPT gestation SINGLE TON normal Not Available [facility] [address], [place], [address], 02/14/2025 01:55:32 02/15/20 25 02/14/2025 [UNIT Y] ANEUP LOIDY NIPT for detailed report, see pdf See PDF normal Not Available [facility] [address], [place], [address], 02/14/2025 01:55:32 02/18/20 25 02/17/2025 [UNIT Y] OTTO Islas sickle cell disease/beta -thalassemia /hemoglobino pathies carrier screen NEGATI VE normal Not Available [facility] [address], [place], [address], 02/17/2025 10:24:39 02/18/20 25 02/17/2025 [UNIT Y] OTTO PATEL PRIMITIVO Islas alpha-thalas semia carrier screen NEGATI VE normal Not Available [facility] [address], [place], [address], 02/17/2025 10:24:39 02/18/20 25 02/17/2025 [UNIT Y] OTTO PATEL PRIMITIVO Islas cystic fibrosis carrier screen NEGATI VE normal Not Available [facility] [address], [place], [address], 02/17/2025 10:24:39 02/18/20 25 02/17/2025 [UNIT Y] OTTO JORGE Islas spinal muscular atrophy carrier screen NEGATI VE 2 SMN1 copies , SNP not presen t normal Not Available [facility] [address], [place], [address], 02/17/2025 10:24:39 02/18/20 25 02/17/2025 [UNIT Y] OTTO PATEL PRIMITIVO Islas for detailed report, see pdf See PDF normal Not Available [facility] [address], [place], [address], 02/17/2025 10:24:39 02/07/20 25 02/06/2025 CBC W/DIF F WBC 12.0 10'3/ uL 3.5-10 .5 high Not Available [facility] (Lab) [address], [place], [address], 02/07/2025 13:12:55 02/07/20 25 02/06/2025 CBC W/DIF F RBC 4.52 10'6/ uL (based on docume nted legal sex) 3.80-5 .20 Not Available [facility] (Lab) [address], [place], [address], 02/07/2025 13:12:55 02/07/20 25 02/06/2025 CBC W/DIF F HGB 12.4 g/dL (based on docume nted legal sex) 11.6-1 5.4 Not Available [facility] (Lab) [address], [place], [address], 02/07/2025 13:12:55 02/07/20 25 02/06/2025 CBC W/DIF F HCT 38.9 % (based on docume nted legal sex) 34.0-4 5.0 Not Available [facility] (Lab) [address], [place], [address], 02/07/2025 13:12:55 02/07/20 25 02/06/2025 CBC W/DIF F MCV 86.1 fL 80.0-9 9.0 Not Available [facility] (Lab) [address], [place], [address], 02/07/2025 13:12:55 02/07/20 25 02/06/2025 CBC W/DIF F MCH 27.4 pg 27.0-3 4.0 Not Available [facility] (Lab) [address], [place], [address], 02/07/2025 13:12:55 02/07/20 25 02/06/2025 CBC W/DIF F MCHC 31.9 g/dL 32.0-3 5.5 low Not Available [facility] (Lab) [address], [place], [address], 02/07/2025 13:12:55 02/07/20 25 02/06/2025 CBC W/DIF F RDW 12.9 % 11.0-1 5.0 Not Available [facility] (Lab) [address] [place], [address], 02/07/2025 13:12:55 02/07/20 25 02/06/2025 CBC W/DIF F plt 281 10'3/ uL 150-40 0 Not Available [facility] (Lab) [address] [place], [address], 02/07/2025 13:12:55 02/07/20 25 02/06/2025 CBC W/DIF F MPV 11.0 fL 8.8-12 .1 Not Available [facility] (Lab) [address] [facility], [place], [address], 02/07/2025 13:12:55 02/07/20 25 02/06/2025 CBC W/DIF F NRBC's 0.0 % 0.0 Not Available [facility] (Lab) [address] [facility], [place], [address], 02/07/2025 13:12:55 02/07/20 25 02/06/2025 CBC W/DIF F absolute NRBCs 0.0 10'3/ uL no refere nce range establ ished Not Available [facility] (Lab) [address] [facility], [place], [address], 02/07/2025 13:12:55 02/07/20 25 02/06/2025 CBC W/DIF F neutrophils 72.5 % 34.0-7 3.0 Not Available [facility] (Lab) [address] [facility], [place], [address], 02/07/2025 13:12:55 02/07/20 25 02/06/2025 CBC W/DIF F lymphocytes 20.4 % 15.0-5 0.0 Not Available [facility] (Lab) [address] [facility], [place], [address], 02/07/2025 13:12:55 02/07/20 25 02/06/2025 CBC W/DIF F monocytes 5.9 % 1.0-15 .0 Not Available [facility] (Lab) [address] [facility], [place], [address], 02/07/2025 13:12:55 02/07/20 25 02/06/2025 CBC W/DIF F eosinophils 0.6 % 0.0-8. 0 Not Available [facility] (Lab) [address] [facility], [place], [address], 02/07/2025 13:12:55 02/07/2002/06/2025 CBC W/DIF F basophils 0.3 % 0.0-2. 0 Not Available [facility] (Lab) [address] [facility], [place], [address], 02/07/2025 13:12:55 02/07/20 25 02/06/2025 CBC W/DIF [...] separ ately if prese nt. Not Available [facility] (Lab) [address] [facility], [place], [address], 02/07/2025 13:12:55 02/07/20 25 02/06/2025 CBC W/DIF F absolute neutrophils 8.7 10'3/ uL 1.5-8. 0 high Not Available [facility] (Lab) [address] [facility], [place], [address], 02/07/2025 13:12:55 02/07/20 25 02/06/2025 CBC W/DIF F absolute lymphocytes 2.4 10'3/ uL 1.0-4. 0 Not Available [facility] (Lab) [address] [facility], [place], [address], 02/07/2025 13:12:55 02/07/20 25 02/06/2025 CBC W/DIF F absolute monocytes 0.7 10'3/ uL 0.2-1. 0 Not Available [facility] (Lab) [address] [facility], [place], [address], 02/07/2025 13:12:55 02/07/20 25 02/06/2025 CBC W/DIF F absolute eosinophils 0.1 10'3/ uL 0.0-0. 6 Not Available [facility] (Lab) [address] [facility], [place], [address], 02/07/2025 13:12:55 02/07/2002/06/2025 CBC W/DIF F absolute basophils 0.0 10'3/ uL 0.0-0. 3 Not Available [facility] (Lab) [address], [place], [address], 02/07/2025 13:12:55 02/07/20 25 02/06/2025 CBC W/DIF F absolute immature granulocytes 0.0 10'3/ uL 0.00-0 .10 Refer ence range s for nonbi nary/ inter sex or unspe cifie d gende r patie nts have not been estab lishe d. Pleas e refer to the [place] wing table for range s estab lishe d for cisge nder patie nts and evalu ate in the clini patrice kristal xt of the indiv idual patie nt: https :[email or web address] [email or web address] g/gen derx Not Available [facility] (Lab) [address], [place], [address], 02/07/2025 13:12:55 02/07/2002/06/2025 HEPAT ITIS B SURFA CE ANTIG EN hepatitis B surface antigen Non-re active non-re active This assay was perfo rmed using [employer] ratio n reage nts and test kits. Value s obtai dexter with other assay metho ds or kits canno t be used inter lopez eably . Not Available [facility] (Lab) [address], [place], [address], 02/07/2025 13:12:55 02/07/2002/06/2025 HIV 1/2 ANTIG EN/AN TIBOD Y, REFLE X CONFI RMATI ON HIV antigen/anti body Nonrea ctive nonrea ctive HIV-1 antig en and HIV-1 /HIV- 2 antib odies were not detec ruy. No labor atory evide nce of HIV infec tion. Not Available [facility] (Lab) [address], [place], [address], 02/07/2025 13:12:56 02/07/2002/06/2025 HEPAT ITIS C ANTIB ANITA SCREE N, REFLE X TO CONFI RMATI ON hepatitis C antibody Non-re active non-re active Antib odies to HCV Not Detec ruy, does not exclu de the possi bilit y of expos ure to HCV. Not Available [facility] (Lab) [address], [place], [address], 02/07/2025 13:12:56 02/07/2002/06/2025 RUBEL LA IGG ANTIB ANITA, QUANT rubella antibodies, IgG Reacti ve reacti ve Not Available [facility] (Lab) [address], [place], [address], 02/07/2025 13:12:56 02/07/2002/06/2025 RUBEL LA IGG ANTIB ANITA, QUANT rubella antibodies, IgG quant 61.9 IU/mL >=10 Non-r eacti ve (Non- Immun e) <10 IU/mL React essie (Immu ne) > or = 10 IU/mL Not Available [facility] (Lab) [address], [place], [address], 02/07/2025 13:12:56 02/07/2002/06/2025 TYPE/ RH/SC REEN ABO/Rh type O POS Not Available [facility] (Lab) [address], [place], [address], 02/07/2025 13:12:57 02/07/2002/06/2025 TYPE/ RH/SC REEN antibody screen NEG Not Available [facility] (Lab) [address] [place], [address], 02/07/2025 13:12:57 02/07/20 25 02/06/2025 TYPE/ RH/SC REEN exp date 2024 23:59 Not Available [facility] (Lab) [address] [facility], [place], [address], 02/07/2025 13:12:57 02/07/20 25 02/06/2025 RPR SCREE N, REFLE X TITER /CONF IRMAT ION RPR qualitative Nonrea ctive nonrea ctive Not Available [facility] (Lab) [address] [facility], [place], [address], 02/07/2025 13:12:57 02/07/20 25 02/06/2025 HEMOG LOBIN A1C hemoglobin A1C 5.4 % 4.0-5. 6 The Ameri can [facility] iatio n recom mends that a prima ry goal of thera py duarteul d be a HBA1C of < 7% and that physi cians shoul d reeva luate the treat ment regim en in patie nts with HBA1C value s consi stent ly > 8%. <5.7% Carol l 5.7 - 6.4% Incre ased risk for diabe shlomo >=6.5 % Diagn ostic of diabe shlomo <7.0% Goal of thera py >8.0% Actio n sugge sted Not Available [facility] (Lab) [address] [facility], [place], [address], 02/07/2025 13:12:57 02/07/2002/06/2025 CULTU RE: URINE result report SEE RESULT S BELOW Test: Cultu re: Urine Speci men Sourc e: Urine - Clean Catch Speci men Type: Urine Speci men Date: 2024 1737 Resul t Date: 2024 0700 Resul t Statu s: Final resul t Abnor mal: No Resul ting Lab: [facility] [address] [facility] [address] Tel: CULTU RE ----- ----- ----- --- Cultu re resul t (>=3 organ isms prese nt) indic ates possi ble conta minat ion. Repea t cultu re if sympt oms indic ate. Not Available [facility] (Lab) [address], [place], [address], 02/08/2025 08:03:32 02/07/20 25 02/06/2025 drug scree n, urine Amphetamines : negati ve Not Available [facility] [address], [place], [address], 02/06/2025 18:30:19 02/07/20 25 02/06/2025 drug scree n, urine Cannabinoids : negati ve Not Available [facility] [address], [place], [address], 02/06/2025 18:30:19 02/07/20 25 02/06/2025 drug scree n, urine Cocaine: negati ve Not Available [facility] [address], [place], [address], 02/06/2025 18:30:19 02/07/20 25 02/06/2025 drug scree n, urine Opiates: negati ve Not Available [facility] [address], [place], [address], 02/06/2025 18:30:19 02/07/20 25 02/06/2025 drug scree n, urine Phenocyclidi ne: negati ve Not Available [facility] [address], [place], [address], 02/06/2025 18:30:19 02/07/20 25 02/06/2025 drug scree n, urine Barbiturates : negati ve Not Available [facility] [address], [place], [address], 02/06/2025 18:30:19 02/07/20 25 02/06/2025 drug scree n, urine Benzodiazepi brayan: negati ve Not Available [facility] [address], [place], [address], 02/06/2025 18:30:19 02/07/20 25 02/06/2025 drug scree n, urine Ethanol: negati ve Not Available [facility] [address], [place], [address], 02/06/2025 18:30:19 02/07/20 25 02/06/2025 drug scree n, urine Hallucinogen s: negati ve Not Available [facility] [address], [place], [address], 02/06/2025 18:30:19 02/07/20 25 02/06/2025 drug scree n, urine Inhalants: negati ve Not Available [facility] [address], [place], [address], 02/06/2025 18:30:19 02/07/20 25 02/06/2025 drug scree n, urine Anabolic Steroids: negati ve Not Available [facility] [address], [place], [address], 02/06/2025 18:30:19 02/07/20 25 02/06/2025 drug scree n, urine Other: negati ve Not Available [facility] [address], [place], [address], 02/06/2025 18:30:19 05/15/20 25 05/15/2025 HEMOG LOBIN (HGB) HGB 10.9 g/dL (based on docume nted legal sex) 11.6-1 5.4 low Not Available [facility] (Lab) [address], [place], [address], 05/16/2025 09:55:38 05/15/20 25 05/15/2025 HEMAT OCRIT (HCT) HCT 35.7 % (based on docume nted legal sex) 34.0-4 5.0 Not Available [facility] (Lab) [address], [place], [address], 05/16/2025 09:55:39 05/15/2005/15/2025 CBC W/DIF F WBC 14.6 10'3/ uL 3.5-10 .5 high Not Available [facility] (Lab) [address], [place], [address], 05/16/2025 09:55:39 05/15/2005/15/2025 CBC W/DIF F RBC 4.01 10'6/ uL (based on docume nted legal sex) 3.80-5 .20 Not Available [facility] (Lab) [address], [place], [address], 05/16/2025 09:55:39 05/15/2005/15/2025 CBC W/DIF F HGB 10.9 g/dL (based on docume nted legal sex) 11.6-1 5.4 low Not Available [facility] (Lab) [address], [place], [address], 05/16/2025 09:55:39 05/15/2005/15/2025 CBC W/DIF F HCT 35.7 % (based on docume nted legal sex) 34.0-4 5.0 Not Available [facility] (Lab) [address], [place], [address], 05/16/2025 09:55:39 05/15/2005/15/2025 CBC W/DIF F MCV 89.0 fL 80.0-9 9.0 Not Available [facility] (Lab) [address], [place], [address], 05/16/2025 09:55:39 05/15/2005/15/2025 CBC W/DIF F MCH 27.2 pg 27.0-3 4.0 Not Available [facility] (Lab) [address], [place], [address], 05/16/2025 09:55:39 05/15/2005/15/2025 CBC W/DIF F MCHC 30.5 g/dL 32.0-3 5.5 low Not Available [facility] (Lab) [address] [facility], [place], [address], 05/16/2025 09:55:39 05/15/2005/15/2025 CBC W/DIF F RDW 14.5 % 11.0-1 5.0 Not Available [facility] (Lab) [address], [place], [address], 05/16/2025 09:55:39 05/15/2005/15/2025 CBC W/DIF F plt 218 10'3/ uL 150-40 0 Not Available [facility] (Lab) [address], [place], [address], 05/16/2025 09:55:39 05/15/2005/15/2025 CBC W/DIF F MPV 11.1 fL 8.8-12 .1 Not Available [facility] (Lab) [address], [place], [address], 05/16/2025 09:55:39 05/15/2005/15/2025 CBC W/DIF F NRBC's 0.0 % 0.0 Not Available [facility] (Lab) [address], [place], [address], 05/16/2025 09:55:39 05/15/2005/15/2025 CBC W/DIF F absolute NRBCs 0.0 10'3/ uL no refere nce range establ ished Not Available [facility] (Lab) [address] [facility], [place], [address], 05/16/2025 09:55:39 05/15/2005/15/2025 CBC W/DIF F neutrophils 78.7 % 34.0-7 3.0 high Not Available [facility] (Lab) [address] [place], [address], 05/16/2025 09:55:39 05/15/2005/15/2025 CBC W/DIF F lymphocytes 15.0 % 15.0-5 0.0 Not Available [facility] (Lab) [address] [facility], [place], [address], 05/16/2025 09:55:39 05/15/2005/15/2025 CBC W/DIF F monocytes 4.9 % 1.0-15 .0 Not Available [facility] (Lab) [address] [facility], [place], [address], 05/16/2025 09:55:39 05/15/2005/15/2025 CBC W/DIF F eosinophils 0.6 % 0.0-8. 0 Not Available [facility] (Lab) [address] [facility], [place], [address], 05/16/2025 09:55:39 05/15/2005/15/2025 CBC W/DIF F basophils 0.3 % 0.0-2. 0 Not Available [facility] (Lab) [address] [place], [address], 05/16/2025 09:55:39 05/15/2005/15/2025 CBC W/DIF F immature granulocytes 0.5 % no define d refere nce range Immat ure Granu locyt es (IG) repre sents autom ated enume ratio n of Metam yeloc ytes, Myelo cytes and Promy elocy shlomo when IG is < 5%. Blast s are not inclu ded in IG and repor ruy separ ately if prese nt. Not Available [facility] (Lab) [address] [place], [address], 05/16/2025 09:55:39 05/15/2005/15/2025 CBC W/DIF F absolute neutrophils 11.4 10'3/ uL 1.5-8. 0 high Not Available [facility] (Lab) [address], [place], [address], 05/16/2025 09:55:39 05/15/2005/15/2025 CBC W/DIF F absolute lymphocytes 2.2 10'3/ uL 1.0-4. 0 Not Available [facility] (Lab) [address] [facility], [place], [address], 05/16/2025 09:55:39 05/15/2005/15/2025 CBC W/DIF F absolute monocytes 0.7 10'3/ uL 0.2-1. 0 Not Available [facility] (Lab) [address] [facility], [place], [address], 05/16/2025 09:55:39 05/15/2005/15/2025 CBC W/DIF F absolute eosinophils 0.1 10'3/ uL 0.0-0. 6 Not Available [facility] (Lab) [address] [facility], [place], [address], 05/16/2025 09:55:39 05/15/2005/15/2025 CBC W/DIF F absolute basophils 0.1 10'3/ uL 0.0-0. 3 Not Available [facility] (Lab) [address] [facility], [place], [address], 05/16/2025 09:55:39 05/15/2005/15/2025 CBC W/DIF F absolute immature granulocytes 0.1 10'3/ uL 0.00-0 .10 Refer ence range s for nonbi nary/ inter sex or unspe cifie d gende r patie nts have not been estab lishe d. Pleas e [facility] table for range s estab lishe d for cisge nder patie nts and evalu ate in the clini patrice kristal xt of the indiv idual patie nt: https :[email or web address] [email or web address] g/[email or web address] derx Not Available [facility] (Lab) [address] [facility], [place], [address], 05/16/2025 09:55:39 05/15/20 25 05/15/2025 GTT - GESTA KHANH Bryce PRIMITIVO N, ACOG OB glucose, 1 hour screen 115 mg/dL 70-135 Not Available [facility] (Lab) [address] [place], [address], 05/16/2025 09:55:40 05/15/20 25 05/15/2025 URIC ACID uric acid 4.1 mg/dL 2.3-6. 6 Not Available [facility] (Lab) [address] [facility], [place], [address], 05/16/2025 09:55:40 05/15/20 25 05/15/2025 CMP(C OMPRE HENSI VE METAB OLIC PANEL ) sodium 138 mmol/ L 133-14 6 Not Available [facility] (Lab) [address] [place], [address], 05/16/2025 09:55:41 05/15/20 25 05/15/2025 CMP(C OMPRE HENSI VE METAB OLIC PANEL ) potassium 4.1 mmol/ L 3.5-5. 1 Not Available [facility] (Lab) [address] [place], [address], 05/16/2025 09:55:41 05/15/20 25 05/15/2025 CMP(C OMPRE HENSI VE METAB OLIC PANEL ) chloride 104 mmol/ L 98-107 Not Available [facility] (Lab) [address] [place], [address], 05/16/2025 09:55:41 05/15/20 25 05/15/2025 CMP(C OMPRE HENSI VE METAB OLIC PANEL ) carbon dioxide 24 mmol/ L 21-31 Not Available [facility] (Lab) [address] [facility] [place], [address], 05/16/2025 09:55:41 05/15/20 25 05/15/2025 CMP(C OMPRE HENSI VE METAB OLIC PANEL ) anion gap 10 mmol/ L 4-13 Not Available [facility] (Lab) [address] [facility], [place], [address], 05/16/2025 09:55:41 05/15/20 25 05/15/2025 CMP(C OMPRE HENSI VE METAB OLIC PANEL ) blood urea nitrogen 7 mg/dL 7-25 Not Available [facility] (Lab) [address] [facility], [place], [address], 05/16/2025 09:55:41 05/15/20 25 05/15/2025 CMP(C OMPRE HENSI VE METAB OLIC PANEL ) creatinine 0.55 mg/dL 0.60-1 .30 low Not Available [facility] (Lab) [address] [facility], [place], [address], 05/16/2025 09:55:41 05/15/20 25 05/15/2025 CMP(C OMPRE HENSI VE METAB OLIC PANEL ) egfrcr (CKD-epi 2020) >90 mL/mi n/1.7 3_m2 >=60 Not Available [facility] (Lab) [address] [facility], [place], [address], 05/16/2025 09:55:41 05/15/20 25 05/15/2025 CMP(C OMPRE HENSI VE METAB OLIC PANEL ) calcium 8.7 mg/dL 8.3-10 .5 Not Available [facility] (Lab) [address] [facility], [place], [address], 05/16/2025 09:55:41 05/15/20 25 05/15/2025 CMP(C OMPRE HENSI VE METAB OLIC PANEL ) glucose 115 mg/dL 70-100 high Not Available [facility] (Lab) [address] [facility], [place], [address], 05/16/2025 09:55:41 05/15/2005/15/2025 CMP(C OMPRE HENSI VE METAB OLIC PANEL ) protein, total 5.7 g/dL 6.4-8. 3 low Not Available [facility] (Lab) [address] [facility], [place], [address], 05/16/2025 09:55:41 05/15/2005/15/2025 CMP(C OMPRE HENSI VE METAB OLIC PANEL ) albumin 3.1 g/dL 3.5-5. 0 low Not Available [facility] (Lab) [address] [facility], [place], [address], 05/16/2025 09:55:41 05/15/2005/15/2025 CMP(C OMPRE HENSI VE METAB OLIC PANEL ) ALT 9 units /L 9-43 Not Available [facility] (Lab) [address] [facility], [place], [address], 05/16/2025 09:55:41 05/15/2005/15/2025 CMP(C OMPRE HENSI VE METAB OLIC PANEL ) alkaline phosphatase 114 units /L 34-104 high Not Available [facility] (Lab) [address], [place], [address], 05/16/2025 09:55:41 05/15/2005/15/2025 CMP(C OMPRE HENSI VE METAB OLIC PANEL ) AST 11 units /L 13-39 low Not Available [facility] (Lab) [address], [place], [address], 05/16/2025 09:55:41 05/15/2005/15/2025 CMP(C OMPRE HENSI VE METAB OLIC PANEL ) bilirubin, total 0.3 mg/dL 0.2-1. 2 Not Available [facility] (Lab) [address] [place], [address], 05/16/2025 09:55:41 05/15/20 25 05/15/2025 HIV 1/2 ANTIG EN/AN TIBOD Y, REFLE X CONFI RMATI ON HIV antigen/anti body Nonrea ctive nonrea ctive HIV-1 antig en and HIV-1 /HIV- 2 antib odies were not detec ruy. No labor atory evide nce of HIV infec tion. Not Available [facility] (Lab) [address], [place], [address], 05/16/2025 09:55:41 05/15/20 25 05/15/2025 PROTE IN/CR EATIN INE RATIO , URINE creatinine, urine 13.0 mg/dL R-No refer ence range estab lishe d for this assay Not Available [facility] (Lab) [address], [place], [address], 05/16/2025 09:55:42 05/15/20 25 05/15/2025 PROTE IN/CR EATIN INE RATIO , URINE protein, urine <4 mg/dL R-No refer ence range estab lishe d for this assay Not Available [facility] (Lab) [address], [place], [address], 05/16/2025 09:55:42 05/15/20 25 05/15/2025 PROTE IN/CR [...] fican t prote inuri a. Not Available [facility] (Lab) [address], [place], [address], 05/16/2025 09:55:42 05/15/20 25 05/15/2025 RPR SCREE N, REFLE X TITER /CONF IRMAT ION RPR qualitative Nonrea ctive nonrea ctive Not Available [facility] (Lab) [address], [place], [address], 05/16/2025 09:55:42 06/26/2006/26/2025 PROTE IN/CR EATIN INE RATIO , URINE creatinine, urine 177.6 mg/dL R-No refer ence range estab lishe d for this assay Not Available [facility] (Lab) [address], [place], [address], 06/27/2025 04:29:05 06/26/2006/26/2025 PROTE IN/CR EATIN INE RATIO , URINE protein, urine 15 mg/dL R-No refer ence range estab lishe d for this assay Not Available [facility] (Lab) [address], [place], [address], 06/27/2025 04:29:05 06/26/20 25 06/26/2025 PROTE IN/CR [...] fican t prote inuri a. Not Available [facility] (Lab) [address], [place], [address], 06/27/2025 04:29:05 06/26/2006/26/2025 CBC W/DIF F WBC 13.4 10'3/ uL 3.5-10 .5 high Not Available [facility] (Lab) [address], [place], [address], 06/27/2025 04:29:05 06/26/20 25 06/26/2025 CBC W/DIF F RBC 4.22 10'6/ uL (based on docume nted legal sex) 3.80-5 .20 Not Available [facility] (Lab) [address], [place], [address], 06/27/2025 04:29:05 06/26/2006/26/2025 CBC W/DIF F HGB 11.9 g/dL (based on docume nted legal sex) 11.6-1 5.4 Not Available [facility] (Lab) [address], [place], [address], 06/27/2025 04:29:05 06/26/2006/26/2025 CBC W/DIF F HCT 37.5 % (based on docume nted legal sex) 34.0-4 5.0 Not Available [facility] (Lab) [address], [place], [address], 06/27/2025 04:29:05 06/26/2006/26/2025 CBC W/DIF F MCV 88.9 fL 80.0-9 9.0 Not Available [facility] (Lab) [address], [place], [address], 06/27/2025 04:29:05 06/26/2006/26/2025 CBC W/DIF F MCH 28.2 pg 27.0-3 4.0 Not Available [facility] ([facility]) [address], [place], [address], 06/27/2025 04:29:05 06/26/2006/26/2025 CBC W/DIF F MCHC 31.7 g/dL 32.0-3 5.5 low Not Available [facility] (Lab) [address], [place], [address], 06/27/2025 04:29:05 06/26/20 25 06/26/2025 CBC W/DIF F RDW 14.6 % 11.0-1 5.0 Not Available [facility] ([facility]) [address], [place], [address], 06/27/2025 04:29:05 06/26/20 25 06/26/2025 CBC W/DIF F plt 224 10'3/ uL 150-40 0 Not Available [facility] ([facility]) [address], [place], [address], 06/27/2025 04:29:05 06/26/20 25 06/26/2025 CBC W/DIF F MPV 12.2 fL 8.8-12 .1 high Not Available [facility] ([facility]) [address], [place], [address], 06/27/2025 04:29:05 06/26/20 25 06/26/2025 CBC W/DIF F NRBC's 0.0 % 0.0 Not Available [facility] ([facility]) [address], [place], [address], 06/27/2025 04:29:05 06/26/20 25 06/26/2025 CBC W/DIF F absolute NRBCs 0.0 10'3/ uL no refere nce range establ ished Not Available [facility] ([facility]) [address], [place], [address], 06/27/2025 04:29:05 06/26/20 25 06/26/2025 CBC W/DIF F neutrophils 73.2 % 34.0-7 3.0 high Not Available [facility] ([facility]) [address], [place], [address], 06/27/2025 04:29:05 06/26/20 25 06/26/2025 CBC W/DIF F lymphocytes 18.3 % 15.0-5 0.0 Not Available [facility] ([facility]) [address] [place], [address], 06/27/2025 04:29:05 06/26/20 25 06/26/2025 CBC W/DIF F monocytes 7.5 % 1.0-15 .0 Not Available [facility] ([facility]) [address] [place], [address], 06/27/2025 04:29:05 06/26/20 25 06/26/2025 CBC W/DIF F eosinophils 0.4 % 0.0-8. 0 Not Available [facility] ([facility]) [address], [place], [address], 06/27/2025 04:29:05 06/26/20 25 06/26/2025 CBC W/DIF F basophils 0.2 % 0.0-2. 0 Not Available [facility] ([facility]) [address], [place], [address], 06/27/2025 04:29:05 06/26/2006/26/2025 CBC W/DIF F immature granulocytes 0.4 % no define d refere nce range Immat ure Granu locyt es (IG) repre sents autom ated enume ratio n of Metam yeloc ytes, Myelo cytes and Promy elocy shlomo when IG is < 5%. Blast s are not inclu ded in IG and repor ruy separ ately if prese nt. Not Available [facility] ([facility]) [address], [place], [address], 06/27/2025 04:29:05 06/26/20 25 06/26/2025 CBC W/DIF F absolute neutrophils 9.8 10'3/ uL 1.5-8. 0 high Not Available [facility] ([facility]) [address], [place], [address], 06/27/2025 04:29:05 06/26/20 25 06/26/2025 CBC W/DIF F absolute lymphocytes 2.5 10'3/ uL 1.0-4. 0 Not Available [facility] ([facility]) [address], [place], [address], 06/27/2025 04:29:05 06/26/20 25 06/26/2025 CBC W/DIF F absolute monocytes 1.0 10'3/ uL 0.2-1. 0 Not Available [facility] ([facility]) [address], [place], [address], 06/27/2025 04:29:05 06/26/2006/26/2025 CBC W/DIF F absolute eosinophils 0.1 10'3/ uL 0.0-0. 6 Not Available [facility] ([facility]) [address], [place], [address], 06/27/2025 04:29:05 06/26/20 25 06/26/2025 CBC W/DIF F absolute basophils 0.0 10'3/ uL 0.0-0. 3 Not Available [facility] ([facility]) [address], [place], [address], 06/27/2025 04:29:05 06/26/2006/26/2025 CBC W/DIF F absolute immature granulocytes 0.1 10'3/ uL 0.00-0 .10 Refer ence range s for nonbi nary/ inter sex or unspe cifie d gende r patie nts have not been estab lishe d. [facility]as e [facility] for range s estab lishe d for cisge nder patie nts and evalu ate in the clini patrice kristal xt of the indiv idual patie nt: https :[email or web address] donna book. nm.or g/gen derx Not Available [facility] ([facility]) [address] , [place], [address], 06/27/2025 04:29:05 06/26/2006/26/2025 URIC ACID uric acid 4.8 mg/dL 2.3-6. 6 Not Available [facility] ([facility]) [address], [place], [address], 06/27/2025 04:29:06 06/26/2006/26/2025 CMP(C OMPRE HENSI VE METAB OLIC PANEL ) sodium 138 mmol/ L 133-14 6 Not Available [facility] ([facility]) [address], [place], [address], 06/27/2025 04:29:06 06/26/20 25 06/26/2025 CMP(C OMPRE HENSI VE METAB OLIC PANEL ) potassium 4.0 mmol/ L 3.5-5. 1 Not Available [facility] ([facility]) [address], [place], [address], 06/27/2025 04:29:06 06/26/20 25 06/26/2025 CMP(C OMPRE HENSI VE METAB OLIC PANEL ) chloride 103 mmol/ L 98-107 Not Available [facility] ([facility]) [address], [place], [address], 06/27/2025 04:29:06 06/26/20 25 06/26/2025 CMP(C OMPRE HENSI VE METAB OLIC PANEL ) carbon dioxide 26 mmol/ L 21-31 Not Available [facility] ([facility]) [address], [place], [address], 06/27/2025 04:29:06 06/26/20 25 06/26/2025 CMP(C OMPRE HENSI VE METAB OLIC PANEL ) anion gap 9 mmol/ L 4-13 Not Available [facility] ([facility]) [address], [place], [address], 06/27/2025 04:29:06 06/26/20 25 06/26/2025 CMP(C OMPRE HENSI VE METAB OLIC PANEL ) blood urea nitrogen 7 mg/dL 7-25 Not Available [facility] (Lab) [address], [place], [address], 06/27/2025 04:29:06 06/26/20 25 06/26/2025 CMP(C OMPRE HENSI VE METAB OLIC PANEL ) creatinine 0.66 mg/dL 0.60-1 .30 Not Available [facility] ([facility]) [address], [place], [address], 06/27/2025 04:29:06 06/26/20 25 06/26/2025 CMP(C OMPRE HENSI VE METAB OLIC PANEL ) egfrcr (CKD-epi 2020) >90 mL/mi n/1.7 3_m2 >=60 Not Available [facility] ([facility]) [address], [place], [address], 06/27/2025 04:29:06 06/26/20 25 06/26/2025 CMP(C OMPRE HENSI VE METAB OLIC PANEL ) calcium 9.0 mg/dL 8.3-10 .5 Not Available [facility] ([facility]) [address], [place], [address], 06/27/2025 04:29:06 06/26/2006/26/2025 CMP(C OMPRE HENSI VE METAB OLIC PANEL ) glucose 74 mg/dL 70-100 Not Available [facility] ([facility]) [address], [place], [address], 06/27/2025 04:29:06 06/26/20 25 06/26/2025 CMP(C OMPRE HENSI VE METAB OLIC PANEL ) protein, total 6.1 g/dL 6.4-8. 3 low Not Available [facility] ([facility]) [address], [place], [address], 06/27/2025 04:29:06 06/26/20 25 06/26/2025 CMP(C OMPRE HENSI VE METAB OLIC PANEL ) albumin 3.3 g/dL 3.5-5. 0 low Not Available [facility] ([facility]) [address], [place], [address], 06/27/2025 04:29:06 06/26/20 25 06/26/2025 CMP(C OMPRE HENSI VE METAB OLIC PANEL ) ALT 36 units /L 9-43 Not Available [facility] ([facility]) [address], [place], [address], 06/27/2025 04:29:06 06/26/20 25 06/26/2025 CMP(C OMPRE HENSI VE METAB OLIC PANEL ) alkaline phosphatase 131 units /L 34-104 high Not Available [facility] ([facility]) [address], [place], [address], 06/27/2025 04:29:06 06/26/20 25 06/26/2025 CMP(C OMPRE HENSI VE METAB OLIC PANEL ) AST 20 units /L 13-39 Not Available [facility] ([facility]) [address], [place], [address], 06/27/2025 04:29:06 06/26/20 25 06/26/2025 CMP(C OMPRE HENSI VE METAB OLIC PANEL ) bilirubin, total 0.3 mg/dL 0.2-1. 2 Not Available [facility] ([facility]) [address], [place], [address], 06/27/2025 04:29:06 07/10/2007/10/2025 CULTU RE: GROUP B STREP SCREE N, [...] ting Lab: [facility] [address] [facility] [address] Tel: CULTU RE ----- ----- ----- --- No Group B strep isola ruy at 2 days (bailee ctive broth enhan cemen t) Not Available [facility] ([facility]) [address], [place], [address], 07/13/2025 15:08:33 02/07/2002/06/2025 US, obste tric, nucha l trans lucen cy No observ ation record ed. [email or web address] [facility] [address], [place], [address], 02/06/2025 17:26:10 02/07/20 25 02/06/2025 US, obste tric, follo w-up No observ ation record ed. [email or web address] [address], [place], [address], 02/07/2025 11:49:39 03/27/20 25 03/27/2025 US, obste tric, 2nd or 3rd trime ster No observ ation record ed. [email or web address] [facility] [address], [place], [address], 03/27/2025 16:50:03 03/27/20 25 03/27/2025 US, obste tric, 2nd or 3rd trime ster No observ ation record ed. [email or web address] Viv[address], [place], [address], 04/01/2025 20:55:55 04/24/20 25 04/24/2025 US, obste tric, follo w-up No observ ation record ed. [email or web address] [address], [place], [address], 04/24/2025 18:50:20 04/24/20 25 04/24/2025 US, obste tric, follo w-up No observ ation record ed. [email or web address] [address], [place], [address], 05/02/2025 18:12:06 05/05/20 25 05/05/2025 US, obste tric, limit ed No observ ation record ed. [place] [id number], [place], [address], 05/08/2025 11:23:32 05/05/20 25 05/05/2025 US, obste tric, limit ed No observ ation record ed. [email or web address], [place], [address], 05/08/2025 11:23:15 05/06/2005/05/2025 non-s tress test No observ ation record ed. [facility] [address], [place], [address], 05/14/2025 16:17:57 06/12/2006/12/2025 US, obste tric, follo w-up No observ ation record ed. [email or web address] [facility] [address], [place], [address], 06/12/2025 13:37:49 06/12/2006/12/2025 US, elíase tric, follo w-up No observ ation record ed. [email or web address] [place] [address] [address], [place], [address], 06/14/2025 12:40:46 06/26/2006/26/2025 non-s tress test No observ ation record ed. [email or web address] [facility] [address], [place], [address], 06/26/2025 17:40:02 06/26/20 non-s tress test No observ ation record ed. [email or web address] [facility] [address], [place], [address], 06/26/2025 17:40:25 07/03/2007/03/2025 US, opal lemos, bioph ysica l profi le + non-s tress test No observ ation record ed. [email or web address] [facility] [address], [place], [address], 07/03/2025 10:21:51 07/03/2007/03/2025 US, obste tric, bioph ysica l profi le + non-s tress test No observ ation record ed. [email or web address] [address], [place], [address], 07/03/2025 10:36:03 07/03/2007/03/2025 non-s tress test No observ ation record ed. [address], [place], [address], 07/03/2025 17:34:00 07/03/20 non-s tress test No observ ation record ed. [address], [place], [address], 07/03/2025 16:02:31 07/10/2007/10/2025 US, obste tric, follo w-up No observ ation record ed. [email or web address] [address], [place], [address], 07/10/2025 11:53:53 07/10/2007/10/2025 US, obste tric, follo w-up No observ ation record ed. [facility] [address], [place], [address], 07/10/2025 13:24:28 07/10/2007/10/2025 US, obste tric, bioph ysica l profi le + non-s tress test No observ ation record ed. [facility] [address], [place], [address], 07/10/2025 13:24:41 07/10/20 25 07/10/2025 non-s tress test No observ ation record ed. [address], [place], [address], 07/10/2025 16:54:42 07/10/20 non-s tress test No observ ation record ed. [email or web address] [facility] [address], [place], [address], 07/10/2025 16:55:51 07/17/20 25 07/17/2025 non-s tress test No observ ation record ed. [email or web address] [facility] [address], [place], [address], 07/19/2025 11:50:49 07/17/20 non-s tress test No observ ation record ed. [facility] [address], [place], [address], 07/17/2025 10:56:47 07/17/2007/17/2025 US, obste tric, bioph ysica l profi le + non-s tress test No observ ation record ed. [email or web address] [facility] [address], [place], [address], 07/17/2025 13:24:17 07/17/2007/17/2025 US, obste tric, bioph ysica l profi le + non-s tress test No observ ation record ed. [email or web address] [address], [place], [address], 07/17/2025 11:37:56 07/24/2007/24/2025 US, obste tric, bioph ysica l profi le + non-s tress test No observ ation record ed. [email or web address] [address], [place], [address], 07/24/2025 11:16:54 07/24/20 25 07/24/2025 US, obste tric, bioph ysica l profi le + non-s tress test No observ ation record ed. [email or web address] [facility] [address], [place], [address], 07/24/2025 18:17:48 07/24/20 25 07/24/2025 non-s tress test No observ ation record ed. [facility] [address], [place], [address], 07/24/2025 18:19:09 07/24/20 25 non-s tress test No observ ation record ed. [address], [place], [address], 07/24/2025 16:00:08 Result Notes None recorded. Problems Name Problem SNOMED Code Status Onset Date Resolution Date Notes Provider Name and Address Organization Details Recorded Time Pregnanc y test negative [id number] Completed 201409/02/2020 Pregnanc y examinat ion or test, negative result;R ecorded Elsewher e: No Locat ion: [facility] S ource: E[employer] Road Grader Operator elena: N Practi ce ID: 0001 Grabiel lable Time: 03:15:00 PM Beverley lopez [facility] 0 17:56:19 Obesity [id number] Completed 201409/03/2020 Obesity, unspecif ied;Prac bronson ID: 0001 Beverley lopez [facility] 0 14:20:47 Speciali zed medical examinat ion Completed 201409/02/2020 Routine gynecolo gical examinat ion;Prac bronson ID: 0001 Beverley lopez [facility] 0 17:57:40 Screenin g for malignan t neoplasm of cervix Completed 201409/02/2020 Pap Smear;Pr actice ID: 0001 Beverley lopez [facility] 0 17:56:38 Educatio n Completed 201409/02/2020 Family planning ;Recorde d Elsewher e: No Locat ion: Sally [facility] S ource: [employer] Gr[employer] Operator elena: N Practi ce ID: 0001 Grabiel lable Time: 04:00:00 PM Beverley Corinne jessica, [facility] 0 17:55:08 Female infertil ity [id number] Completed 201410/17/2020 Inferbonifacio covington, female, of unspecif ied origin;P ractice ID: 0001 Beverley Sun jessica, [facility] 1 10:55:45 Body mass index 30+ - obesity [id number] Completed 201510/17/2020 Body mass index (BMI) 39.0-39. 9, adult;Re corded Elsewher e: No Locat ion: Sally [facility] S ource: [employer] Grader Operator elena: N Practi ce ID: 0001 Grabiel lable Time: 11:00:00 AM Beverley Sun jessica, [facility] 1 10:55:40 Syncope and collapse [id number] Completed 201510/17/2020 Syncope and collapse ;Recorde d Elsewher e: No Locat ion: [facility] S ource: [employer] Grader Operator elena: N Practi ce ID: 0001 Grabiel lable Time: 10:30:00 AM Beverley Sun jessica, [facility] 1 10:56:12 Gestatio n less than 9 weeks [id number] Completed 201509/02/2020 Less than 8 weeks gestatio n of pregnanc y;Practi ce ID: 0001 Beverley Sun jessica, [facility] 0 17:55:27 Pregnanc y, childbir th and puerperi um finding Completed 201510/17/2020 Encntr for suprvsn of normal first preg, first trimeste r;Practi ce ID: 0001 Beverley lopez, [facility] 1 10:55:59 Gestatio n period, 12 weeks [id number] Completed 201509/02/2020 12 weeks gestatio n of pregnanc y;Practi ce ID: 0001 Beverley lopez, [facility] 0 17:55:30 Pregnanc y, childbir th and puerperi um finding Completed 201509/02/2020 Encntr for suprvsn of normal first preg, second trimeste r;Practi ce ID: 0001 Beverley lopez, [facility] 0 17:56:27 Gestatio n period, 32 weeks [id number] Completed 201509/02/2020 32 weeks gestatio n of pregnanc y;Practi ce ID: 0001 Beverley lopez, [facility] 0 17:55:35 Pregnanc y, childbir th and puerperi um finding Completed 201509/03/2020 Encounte r for supervis ion of normal first pregnanc y, third trimeste r;Record ed Elsewher e: No Locat ion: [facility] S ource: [employer] Grader Operator elena: N Lincoln ce ID: 0001 Grabiel lable Time: 05:30:00 PM Beverley lopez [facility] 0 14:20:36 Gestatio n period, 33 weeks [id number] Completed 201509/02/2020 33 weeks gestatio n of pregnanc y;Record ed Elsewher e: No Locat ion: [facility] S ource: [employer] Grader Operator elena: N Mathieuti ce ID: 0001 Grabiel lable Time: 09:00:00 AM Beverley lopez [facility] 0 17:55:39 Normal pregnanc y in multigra [place] [id number] Completed 201509/02/2020 Encounte r for suprvsn of normal pregnanc y, third trimeste r;Practi ce ID: 0001 Beverley lopez, [facility] 0 17:56:11 Gestatio n period, 34 weeks [id number] Completed 201509/02/2020 34 weeks gestatio n of pregnanc y;Practi ce ID: 0001 Beverley lopez, [facility] 0 17:55:42 Pregnanc y-induce d hyperten tonya Completed 201503/27/2021 Gestatio nal htn w/o signific ant proteinu che, third trimeste r;Record ed Elsewher e: No [facility] S ource: E[employer] [address] Grader Operator elena: N Practi ce ID: 0001 Grabiel lable Time: 03:00:00 PM Beverley lopez, [facility] 1 16:36:34 Gestatio n period, 36 weeks [id number] Completed 201509/02/2020 36 weeks gestatio n of pregnanc y;Practi ce ID: 0001 Beverley lopez, [facility] 0 17:55:48 Single live from singleto n pregnanc y [id number] Completed 201509/03/2020 Single live ;Pr actice ID: 0001 Beverley lopez, [facility] 0 14:20:54 Gestatio n period, 37 weeks [id number] Completed 201509/02/2020 37 weeks gestatio n of pregnanc y;Practi ce ID: 0001 Beverley lopez, [facility] 0 17:55:50 Pregnanc y-induce d hyperten tonya Completed 201509/02/2020 Gestatio nal htn w/o signific ant proteinu che, unsp trimeste r;Practi ce ID: 0001 Beverley lopez, [facility] 0 17:57:29 Hyperten sive disorder [id number] Completed 201503/27/2021 Benign hyperten tonya;Rec orded Elsewher e: No Locat ion: [facility] S ource: [employer] Gr[employer] Operator elena: N Practi ce ID: 0001 Grabiel lable Time: 10:30:00 AM Beverley Corinne jessica, [facility] 5 19:18:30 Non-prot einuric hyperten tonya of pregnanc y [id number] Completed 201510/17/2020 Gestatnl htn without signific ant protein, comp the puerp;Pr actice ID: 0001 Beverley Sun jessica, [facility] 1 10:56:02 Lochia finding Completed 201510/17/2020 Encounte r for routine postpart um follow-u p;Practi ce ID: 0001 Beverley Sun [facility], [facility] [address] 10:55:[address] Concept Completed 201809/02/2020 Encntr for hop strainer exam (general ) (routine ) w/o abn findings ;Recorde d Elsewher e: No Locat ion: [facility] S ource: [employer] Grader Operator elena: N Practi ce ID: 0001 Grabiel lable Time: 10:30:00 AM Beverley Corinne lopez, [facility] 0 17:56:45 Pregnanc y detectio n examinat ion Completed 201809/02/2020 Encounte r for pregnanc y test, result positive ;Practic e ID: 0001 Beverley Sun jessica [facility] 0 17:56:17 Uterine size for dates discrepa ncy Completed 201810/17/2020 Uterine size-malia e discrepa ncy, first trimeste r;Practi ce ID: 0001 Beverley Sun jessica [facility] 1 10:56:17 Secondar y amenorrh ea [id number] Completed 201810/17/2020 Secondar y amenorrh ea;Recor ded Elsewher e: No [facility] S ource: [employer] [address] Grader Operator elena: N Practi ce ID: 0001 Grabiel lable Time: 10:30:00 AM Beverley Sun jessica, [facility] 1 10:56:05 Infectio n screenin g Completed 201809/02/2020 Encounte r for screenin g for oth infec/pa rastc diseases ;Recorde d Elsewher e: No Locat ion: [facility] S ource: [facility] Road Grader Operator elena: N Practi ce ID: 0001 Grabiel lable Time: 10:30:00 AM [facility] 0 17:56:03 Syphilis test finding [id number] Completed 201809/03/2020 Encntr screen for infectio ns w sexl mode of transmis s;Record ed Elsewher e: No Locat ion: [facility] S ource: [employer] [address] Grader Operator elena: N Practi ce ID: 0001 Grabiel lable Time: 10:30:00 AM Beverley Sun jessica [facility] 0 14:20:58 Finding of viabilit y of pregnanc y [id number] Completed 201809/02/2020 Pregnanc y w inconclu sive viabilit y, unsp;Pra ctice ID: 0001 Beverley Sun jessica, [facility] 0 17:55:21 Finding of contents of cervix [id number] Completed 201809/02/2020 Weeks of gestatio n of pregnanc y not specifie d;Practi ce ID: 0001 Beverley lopez, [facility] 0 17:55:14 Threaten ed miscarri age [id number] Completed 201810/17/2020 Threaten ed ;Recorde d Elsewher e: No Locat ion: [facility] S ource: EHR Road Grader Operator elena: N Practi ce ID: 0001 Grabiel lable Time: 12:30:00 PM Beverley lopez, [facility] 1 10:56:15 Gestatio n period, 8 weeks [id number] Completed 201809/02/2020 8 weeks gestatio n of pregnanc y;Practi ce ID: 0001 Beverley Sun [facility], [facility] 0 17:55:55 Rubella screenin g status [id number] Completed 201809/02/2020 Encounte r for antenata l screenin g, unspecif ied;Benitez rded Elsewher e: No [facility] S ource: EHR Road Grader Operator elena: N Practi ce ID: [id number] Grabiel lable Time: 04:30:00 PM Beverley lopez, [facility] 0 17:56:34 Antenata l screenin g Completed 201809/02/2020 Encounte r for antenata l screenin g for nuchal transluc ency;Pra ctice ID: 0001 Beverley lopez, [facility] 0 17:57:11 Antenata l screenin g for malforma tion Completed 201809/02/2020 Encounte r for antenata l screenin g for malforma tions;Re corded Elsewher e: No Locat ion: [facility] S ource: EHR Road Grader Operator elena: N Practi ce ID: 0001 Grabiel lable Time: 08:15:00 AM Beverley lopez, [facility] 0 17:57:13 Gestatio n period, 29 weeks [id number] Completed 201809/02/2020 29 weeks gestatio n of pregnanc y;Record ed Elsewher e: No Locat ion: Sally malik [facility] S ource: EHR Road Grader Operator elena: N Practi ce ID: 0001 Grabiel lable Time: 03:45:00 PM Beverley Dos Santostz jessica, [facility] 0 17:55:32 Clinical finding Completed 201810/17/2020 Tachycar rishi, unspecif ied;Benitez rded Elsewher e: No Locat ion: Sally malik [facility] S ource: EHR Road Grader Operator elena: N Practi ce ID: 0001 Grabiel lable Time: 11:15:00 AM Beverley Sun jessica, [facility] 1 10:55:44 Clinical finding Completed 201809/02/2020 Obesity, unspecif ied;Benitez rded Elsewher e: No [facility] S ource: EHR Road Grader Operator elena: N Practi ce ID: 0001 Grabiel lable Time: 03:00:00 PM Beverley Sun jessica, [facility] 0 17:55:24 Finding of body mass index 183131816 Completed 201809/02/2020 Body mass index (BMI) 40.0-44. 9, adult;Re corded Elsewher e: No [facility] S ource: EHR Road Grader Operator elena: N Practi ce ID: 0001 Grabiel lable Time: 02:00:00 PM Beverley Sun jessica, [facility] 0 17:56:59 Gestatio n period, 35 weeks 85212875 Completed 201809/02/2020 35 weeks gestatio n of pregnanc y;Record ed Elsewher e: No Locat ion: [facility] S ource: EHR Road Grader Operator elena: N Practi ce ID: 0001 Grabiel lable Time: 02:00:00 PM Beverley Sun jessica, [facility] 0 17:55:44 Severe obesity complica ting pregnanc y 4344180980 6859801 Completed 201810/17/2020 Obesity complica ting pregnanc y, third trimeste r;Record ed Elsewher e: No Locat ion: [facility] S ource: EHR Road Grader Operator elena: N Practi ce ID: 0001 Grabiel lable Time: 03:00:00 PM Beverley lopez [facility] 1 10:56:10 Gestatio n period, 38 weeks 92163894 Completed 201809/02/2020 38 weeks gestatio n of pregnanc y;Record ed Elsewher e: No Locat ion: [facility] S ource: EHR Road Grader Operator elena: N Practi ce ID: 0001 Grabiel lable Time: 11:00:00 AM Beverley lopez, [facility] 0 17:55:53 Hyperten tonya in the obstetri c context Completed 201810/17/2020 Pre-exis ting essentia l htn comp pregnanc y, third trimeste r;Practi ce ID: 0001 Beverley Sun [facility], [facility] 1 10:55:52 Attentio n deficit hyperact ivity disorder 442680958 Active 2024 stopped taking medicati on when found out Beverley lopez [facility] 5 19:38:30 Mixed anxiety and depressi ve disorder 075905796 Active 2024 Beverley lopez, [facility] 5 19:37:00 Hyperten sive disorder 69216525 Active 2024 Medina Whitaker CNM [address], [place], [address], [facility] 5 17:26:39 Headache 13670833 Active 2024 Beverley Sun [facility], [facility] 19:37:14 Pregnanc y 78258952 Active 2024 Beverley Sun [facility] 19:36:35 Mixed anxiety and depressi ve disorder 811239442 Active 2024 Beverley Dos Santostz jessica, [facility] 19:37:00 Headache 81637729 Active 2024 Beverley Sun [facility], [facility] 19:37:14 Past pregnanc y history of gestatio nal hyperten tonya 381610724 Active 2024 2016 pregnanc y start bASA x 2 daily Medina Whitaker CNM [address], [place], [address], [facility] 17:26:14 Attentio n deficit hyperact ivity disorder 539475816 Active 2024 stopped taking medicati on when found out Beverley Sun [facility] 19:38:30 Obesity 981390676 Active 2024 antenata l testing @ 34wks Sonya Batista [facility] 20:55:07 Hyperten tonya AND/OR vomiting complica ting pregnanc y childbir th AND/OR puerperi 698832585 Active 2024 Medina Whitaker CNM [address], [place], [address], [facility] 15:51:32 Notes:Encounter for antenata l screening of mother Recorded Elsewhere: No Location: [facility] Source: EHR Chronic: N Practice ID: [id number] Billable Time: 10:30:00 AM Encounter for screening of mother Practice ID: [id number] Encounter for screening of mother Recorded Elsewhere: No Location: [facility] Source: EHR Chronic: N Practice ID: 0001 Billable Time: 10:30:00 AM Encounter for screening of mother Practice ID: 0001 Problem Notes None recorded. Procedures Surgical History Date Name Laterality Status Provider Name and Address Organization Details Recorded Time Date of Last Pap Smear completed [facility] 02/06/2025 08:37:03 1 [facility] 19:33:27 Imaging Results [...] Prescrib camilo Fritz e: No Locat ion: [facility] M odify By: [email or web address] z Encoun ter [...] Prescrib ed Elsewher e: No [facility] odify By: rocio solorzano DateTime : [...] Prescrib ed Elsewher e: No Locat ion: [facility] odify By: geovanny z Hiro ter DateTime [...] Prescrib ed Elsewher e: No [facility] odify By: belem haley DateTime : [...] Address Organization Details Last Updated DateTime 07/10/2025 809089.0213 g 128/85 mm[Hg] Barbie Coronado [place] [facility] 07/10/2025 10:56:59 Date Recorded Body height Body mass index (BMI) Body weight Systolic And Diastolic Provider Name and Address Organization Details Last Updated DateTime 07/10/2025 167.64 cm 50 kg/m2 098042.63 g 128/85 mm[Hg] Zitalarry Westfall [facility] 07/10/2025 16:50:05 Social History Question Answer Notes LastModified by Organizat ion Details LastModified Time Tobacco Smoking Status Never Smoker Beverley lopez, [facility] 03/21/2020 13:16:23 Do You Have An Advance Directive? No Information n ot available 01/07/2025 If You Are , What Was Your Level Of Alcohol Consumption Prior To ? Occasional [email or web address] Information not available 10/17/2020 Are You Blind Or Do You Have Difficulty Seeing? No [email or web address] Information n ot available 03/27/2021 What Is Your Level Of Caffeine Consumption? Occasional [email or web address] Information not available 10/17/2020 In The 14 Days Before Symptom Onset, Have You Had Close Contact With A Laboratory-confirm ed COVID-19 While That Case Was Ill? No [email or web address] Information n ot available 03/27/2021 In The 14 Days Before Symptom Onset, Have You Had Close Contact With A Person Who Is Under Investigation For COVID-19 While That Person Was Ill? No [email or web address] Information not available 03/27/2021 Have You Been To An Area Known To Be High Risk For COVID-19? No [email or web address] Information not available 03/27/2021 Are You Deaf Or Do You Have Serious Difficulty Hearing? No [email or web address] Information not available 03/27/2021 What Type Of Diet Are You Following? REGULAR Information n ot available 03/27/2021 What Is The Highest Grade Or Level Of School You Have Completed Or The Highest Degree You Have Received? [id number] Information not available 01/07/2025 What Was The Date Of Your Most Recent Tobacco Screening? 02/06/2025 [email or web address] Information not available 02/06/2025 Have You Ever Been Counseled For Unhealthy Alcohol Use? No [email or web address] Information not available 10/17/2020 Do You Use Protection During Sex? No Information not available 01/07/2025 Do You Use Your Seat Belt Or Car Seat Routinely? Yes Information not available 03/27/2021 Do You Have Smoke And Carbon Monoxide Detectors In Your Home? Yes [email or web address] Information not available 03/27/2021 How Much Tobacco Do You Smoke? No [email or web address] Information not available 03/21/2020 Do You Use Sunscreen Routinely? Yes [email or web address] Information not available 03/27/2021 Has Tobacco Cessation Counseling Been Provided? No [email or web address] Information not available 10/17/2020 Have You Used IV Drugs? No Information not available 01/07/2025 Do You Have Difficulty Walking Or Climbing Stairs? No [email or web address] Information not available 02/06/2025 Sex: Unknown Functional Status Question Answer Note LastModified by Organizat ion Details LastModified Time Do you use any illicit or recreational drugs? No [email or web address] Information not available 10/17/2020 Do you or have you ever used any other forms of tobacco or nicotine? No [email or web address] Information not available 10/17/2020 What is your level of alcohol consumption? None [email or web address] Information not available 02/06/2025 Do you or have you ever used smokeless tobacco? Never used smokeless tobacco [email or web address] Information not available 03/21/2020 Are you able to walk independently without assistance or assistive devices? YESWOREST [email or web address] Information not available 03/27/2021 Are you able to care for yourself independently? Yes [email or web address] Information not available 02/06/2025 Do you have difficulty dressing, bathing, grooming, or toileting? No [email or web address] Information not available 02/06/2025 Do you or have you ever used e-cigarettes or vape? Never used electronic cigarettes [email or web address] Information not available 03/21/2020 What is your exercise level? Occasional [email or web address] Information not available 03/21/2020 Mental Status Question Answer Note LastModified by Organization D etails LastModified Time Do you feel stressed (tense, restless, nervous, or anxious, or unable to sleep at night)? [id number] [email or web address] Information not available 03/27/2021 Family History Relationship Description Onset Age of this Age Resolved Age Notes LastModified by Organization Details LastModified Time Mother Disorder of thyroid gland [email or web address] Not available 03/21 13:15:49 Father Diabetes mellitus Not available 03/21 13:16:06 Maternal Grandfather Diabetes mellitus [email or web address] Not available 03/21 13:16:06 Maternal Grandmother Malignant neoplasm of lung [email or web address] Not available 12/13 11:16:48 Medical History Condition Response Allergies (Food, seasonal, environmental ) Y Other N Blood Transfusion N Breast Cancer N Drug/Latex Allergies/Reactions N Dermatologic Disorders N Lung Disease N [...] ICD10 Code Diagnosis IMO Codes Diagnosis Note [id number] Lobito Salinas MD [facility] [address] [address] 06/12/2025 11:17:33 06/12/2025 12:05:04 Large for gestation age fetus 466568342 O36.60X0 Z3A.31 95872031 [id number] [facility] [address],[place] [address] 06/12/2025 11:18:32 06/12/2025 14:07:15 Gestation period, 31 weeks 25583345 Z3A.31 3166653 [id number] [facility] [address],[place] [address] 06/26/2025 14:50:38 06/26/2025 15:53:19 Gestation period, 33 weeks 92940724 Z3A.33 8489739 [id number] [place] [facility] [address] [address] 06/26/2025 15:32:15 06/26/2025 17:47:00 Hypertension AND/OR vomiting complicating childbirth AND/OR puerperium 940935338 O13.3 2079784 [id number] Lobito Salinas MD [facility] [address] [place] [address] 07/03/2025 09:24:44 07/03/2025 10:27:55 -induced hypertension 93107951 O13.3 Z3A.34 835089 [id number] [facility] [address],[place] [address] 07/03/2025 09:24:58 07/03/2025 16:17:39 Maternal obesity complicating , childbirth and the puerperium, antepartum 3026348763 07 O99.210 8933968854 rf phentermin e, ok for one more refill then must take break [id number] Medina Whitaker CNM [facility] [address] [place] [address] 07/03/2025 09:25:15 07/03/2025 11:45:20 Gestation period, 34 weeks 66755868 Z3A.34 5101392 [id number] Lobito Salinas MD [facility] [address],[facility] [place] [address] 07/10/2025 09:26:17 07/10/2025 10:22:03 Chronic hypertension complicating AND/OR reason for care during 41217219 O10.919 O36.60X0 O99.210 Z3A.35 69335938 [id number] Medina Whitaker CNM [facility] [address],[place] [address] 07/10/2025 09:27:40 07/10/2025 17:20:31 Maternal obesity complicating , childbirth and the puerperium, antepartum 4649429796 07 O99.210 5748642456 rf phentermin e, ok for one more refill then must take break [id number] Medina Whitaker CNM [facility] [address],[place] [address] 07/10/2025 09:27:58 07/10/2025 12:08:57 Gestation period, 35 weeks 93001690 Z3A.35 [id number] Health Concerns Section Related Observation LastModified by Organization Detai ls LastModified Time None Recorded Concern Status LastModified by Organization Details LastModified Time None Recorded Payers Encounter Date Sequence Insurance Name Policy Number Policy [place] Covered Member ID Ventura Member ID Guarantor Name 07/10/2025 1 [facility] [id number] Apolinar Rivers [id number] Whit Rivers Notes Date Note Type Note Provider Name and Address Organization Details Recorded Time 07/10/2025 text/html Generic HPI TemplateReported by Patient Medina Whitaker CNM [address], [place], [address], [facility] 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 Status 02/07/20 25 1 O Positive 291 Apolinar Rivers OPEN Fetus Data First Name Last Name Admitted to NICU Weight (g) Sex Living Outcome Pediatric Complications Fetus ID Race Codes Race Delivery Type [id number] Problems Problem Notes Problem Name Start Date End Date Resolution Snomed Code Not e Attention deficit hyperactivity disorder 02/06/2025 074361541 stopped taking medication when found out Past history of gestational hypertension 02/06/2025 938502727 2016 pregnancys tart bASA x 2 daily Obesity 02/07/2025 553762478 testing @ 34wks Headache 02/06/2025 81203223 Mixed anxiety and depressive disorder 02/06/2025 884975765 Hypertension AND/OR vomiting complicating childbirth AND/OR puerperium 06/26/2025 644433313 Alfa Calculation Initial Alfa Date Initial Exam [...] Weight in lbs Pre/Post Dialysis Refused Weight 289.886833681314 BP Diastolic BP Location Tested BP Systolic [...] Weight in lbs Pre/Post Dialysis Refused Weight 294.739673239350 BP Diastolic BP Location Tested BP Systolic [...] Type Weight in lbs Pre/Post Dialysis Refused 297.818789331067 BP Diastolic BP Location Tested BP Systolic [...] Type Weight in lbs Pre/Post Dialysis Refused 302.153296494484 BP Diastolic BP Location Tested BP Systolic [...] Weight in lbs Pre/Post Dialysis Refused Weight 305.711939886502 BP Diastolic BP Location Tested BP Systolic [...] Weight in lbs Pre/Post Dialysis Refused Weight 306.487217152301 BP Diastolic BP Location Tested BP Systolic [...] Weight in lbs Pre/Post Dialysis Refused Weight 305.646466892877 BP Diastolic BP Location Tested BP Systolic [...] Weight in lbs Pre/Post Dialysis Refused Weight 307.652204285445 BP Diastolic BP Location Tested BP Systolic [...] Type Weight in lbs Pre/Post Dialysis Refused 308.611101582501 BP Diastolic BP Location Tested BP Systolic BP Type 81 L arm 132 sitting Fetus Heart Rate Present Fetus Movement A Yes Comments Flowsheet Date 07/03/2025 Bunn Score Blood Edema Fundus Height Fundus Units Glucose Ketones Leukocytes Nitrite Labor Signs Protein Cervic Dilation Cervic Effacement Cervic Station Type Weight in lbs Pre/Post Dialysis Refused 308.987746633230 BP Diastolic BP Location Tested BP Systolic [...] Weight in lbs Pre/Post Dialysis Refused Weight 310.354277806436 BP Diastolic BP Location Tested BP Systolic BP Type 85 L arm 128 sitting Fetus Heart Rate Present Fetus Movement A Yes Comments Flowsheet Date 07/10/2025 Bunn Score Blood Edema Fundus Height Fundus Units Glucose Ketones Leukocytes Nitrite Labor Signs Protein Cervic Dilation Cervic Effacement Cervic Station Type Weight in lbs Pre/Post Dialysis Refused 310.589496042835 BP Diastolic BP Location Tested BP Systolic [...] Type Weight in lbs Pre/Post Dialysis Refused 311.941562768245 BP Diastolic BP Location Tested BP Systolic [...] Weight in lbs Pre/Post Dialysis Refused Weight 312.483350214890 BP Diastolic BP Location Tested BP Systolic BP Type 84 L arm 131 sitting Fetus Heart Rate Present Fetus Movement A Yes Comments Flowsheet Date 07/24/2025 Bunn Score Blood Edema Fundus Height Fundus Units Glucose Ketones Leukocytes Nitrite Labor Signs Protein Cervic Dilation Cervic Effacement Cervic Station 1cm 50% -2 Type Weight in lbs Pre/Post Dialysis Refused Weight 312.702587383746 BP Diastolic BP Location Tested BP Systolic [...]
--- OUTSIDE RECORDS SUMMARY | 2025-07-26 05:58 | XMS_ITS | Continuity of Care Document ---
Author Organization [facility] Address [address] [place] [address] Care Team Providers Care Ecological Risk Assessor Name Role Phone HA MORTON Primary Care [...] d. Imaging non-str ess test 2024 025 [email or web address] [place], [address], [address], [place], [address], 07/17/2025 11:18:15 Medication Orders None recorde d. Patient TargetsNo targets recorded. Patient InstructionsNo instructions recorded. Reason for Referral None Reported. Results Created Date Observation Date Name Description Value Unit Range Abnormal Flag Note LastModifiedBy Organization Detail LastModifiedTime 02/15/2002/14/2025 [UNIT Y] ANEUP LOIDY NIPT fraction 3.9% normal Not Available [facility] [address], [place], [address], 02/14/2025 01:55:32 02/15/20 25 02/14/2025 [UNIT Y] ANEUP LOIDY NIPT 22Q11.2 microdeletio n LOW RISK <1 in 10,000 normal Not Available [facility] [address], [place], [address], 02/14/2025 01:55:32 02/15/20 25 02/14/2025 [UNIT Y] ANEUP LOIDY NIPT sex chromosome aneuploidy NOT DETECT ED normal Not Available [facility] [address], [place], [address], 02/14/2025 01:55:32 02/15/20 25 02/14/2025 [UNIT Y] ANEUP LOIDY NIPT monosomy X LOW RISK <1 in 10,000 normal Not Available [facility] [address], [place], [address], 02/14/2025 01:55:32 02/15/20 25 02/14/2025 [UNIT Y] ANEUP LOIDY NIPT trisomy 13 LOW RISK <1 in 10,000 normal Not Available [facility] [address], [place], [address], 02/14/2025 01:55:32 02/15/20 25 02/14/2025 [UNIT Y] ANEUP LOIDY NIPT trisomy 18 LOW RISK <1 in 10,000 normal Not Available [facility] [address], [place], [address], 02/14/2025 01:55:32 02/15/20 25 02/14/2025 [UNIT Y] ANEUP LOIDY NIPT trisomy 21 LOW RISK <1 in 10,000 normal Not Available [facility] [address], [place], [address], 02/14/2025 01:55:32 02/15/20 25 02/14/2025 [UNIT Y] ANEUP LOIDY NIPT sex MALE normal Not Available [facility] [address], [place], [address], 02/14/2025 01:55:32 02/15/20 25 02/14/2025 [UNIT Y] ANEUP LOIDY NIPT gestation SINGLE TON normal Not Available [facility] [address], [place], [address], 02/14/2025 01:55:32 02/15/20 25 02/14/2025 [UNIT Y] ANEUP LOIDY NIPT for detailed report, see pdf See PDF normal Not Available [facility] [address], [place], [address], 02/14/2025 01:55:32 02/18/20 25 02/17/2025 [UNIT Y] OTTO Islas sickle cell disease/beta -thalassemia /hemoglobino pathies carrier screen NEGATI VE normal Not Available [facility] [address], [place], [address], 02/17/2025 10:24:39 02/18/20 25 02/17/2025 [UNIT Y] OTTO Islas alpha-thalas semia carrier screen NEGATI VE normal Not Available [facility] [address], [place], [address], 02/17/2025 10:24:39 02/18/20 25 02/17/2025 [UNIT Y] OTTO Islas cystic fibrosis carrier screen NEGATI VE normal Not Available [facility] [address], [place], [address], 02/17/2025 10:24:39 02/18/20 25 02/17/2025 [UNIT Y] OTTO Islas spinal muscular atrophy carrier screen NEGATI VE 2 SMN1 copies , SNP not presen t normal Not Available [facility] [address], [place], [address], 02/17/2025 10:24:39 02/18/20 25 02/17/2025 [UNIT Y] OTTO LANGFORD Janel for detailed report, see pdf See PDF normal Not Available [facility] [address], [place], [address], 02/17/2025 10:24:39 02/07/20 25 02/06/2025 CBC W/DIF F WBC 12.0 10'3/ uL 3.5-10 .5 high Not Available [facility] (Lab) [address], [place], [address], 02/07/2025 13:12:55 02/07/20 25 02/06/2025 CBC W/DIF F RBC 4.52 10'6/ uL (based on docume nted legal sex) 3.80-5 .20 Not Available [facility] (Lab) [address], [place], [address], 02/07/2025 13:12:55 02/07/20 25 02/06/2025 CBC W/DIF F HGB 12.4 g/dL (based on docume nted legal sex) 11.6-1 5.4 Not Available [facility] (Lab) [address], [place], [address], 02/07/2025 13:12:55 02/07/20 25 02/06/2025 CBC W/DIF F HCT 38.9 % (based on docume nted legal sex) 34.0-4 5.0 Not Available [facility] (Lab) [address], [place], [address], 02/07/2025 13:12:55 02/07/20 25 02/06/2025 CBC W/DIF F MCV 86.1 fL 80.0-9 9.0 Not Available [facility] (Lab) [address], [place], [address], 02/07/2025 13:12:55 02/07/20 25 02/06/2025 CBC W/DIF F MCH 27.4 pg 27.0-3 4.0 Not Available [facility] (Lab) [address], [place], [address], 02/07/2025 13:12:55 02/07/20 25 02/06/2025 CBC W/DIF F MCHC 31.9 g/dL 32.0-3 5.5 low Not Available [facility] (Lab) [address], [place], [address], 02/07/2025 13:12:55 02/07/20 25 02/06/2025 CBC W/DIF F RDW 12.9 % 11.0-1 5.0 Not Available [facility] (Lab) [address], [place], [address], 02/07/2025 13:12:55 02/07/20 25 02/06/2025 CBC W/DIF F plt 281 10'3/ uL 150-40 0 Not Available [facility] (Lab) [address], [place], [address], 02/07/2025 13:12:55 02/07/20 25 02/06/2025 CBC W/DIF F MPV 11.0 fL 8.8-12 .1 Not Available [facility] (Lab) [address] [place], [address], 02/07/2025 13:12:55 02/07/20 25 02/06/2025 CBC W/DIF F NRBC's 0.0 % 0.0 Not Available [facility] (Lab) [address] [facility], [place], [address], 02/07/2025 13:12:55 02/07/20 25 02/06/2025 CBC W/DIF F absolute NRBCs 0.0 10'3/ uL no refere nce range establ ished Not Available [facility] (Lab) [address] [facility], [place], [address], 02/07/2025 13:12:55 02/07/20 25 02/06/2025 CBC W/DIF F neutrophils 72.5 % 34.0-7 3.0 Not Available [facility] (Lab) [address] [facility], [place], [address], 02/07/2025 13:12:55 02/07/20 25 02/06/2025 CBC W/DIF F lymphocytes 20.4 % 15.0-5 0.0 Not Available [facility] (Lab) [address] [facility], [place], [address], 02/07/2025 13:12:55 02/07/20 25 02/06/2025 CBC W/DIF F monocytes 5.9 % 1.0-15 .0 Not Available [facility] (Lab) [address] [facility], [place], [address], 02/07/2025 13:12:55 02/07/20 25 02/06/2025 CBC W/DIF F eosinophils 0.6 % 0.0-8. 0 Not Available [facility] (Lab) [address] [facility], [place], [address], 02/07/2025 13:12:55 02/07/20 25 02/06/2025 CBC W/DIF F basophils 0.3 % 0.0-2. 0 Not Available [facility] (Lab) [address] [facility], [place], [address], 02/07/2025 13:12:55 02/07/2002/06/2025 CBC W/DIF F immature granulocytes 0.3 % no define d refere nce range Immat ure Granu locyt es (IG) repre sents autom ated enume ratio n of Metam yeloc ytes, Myelo cytes and Promy elocy shlomo when IG is < 5%. Blast s are not inclu ded in IG and repor ruy separ ately if prese nt. Not Available [facility] (Lab) [address] [facility], [place], [address], 02/07/2025 13:12:55 02/07/20 25 02/06/2025 CBC W/DIF F absolute neutrophils 8.7 10'3/ uL 1.5-8. 0 high Not Available [facility] (Lab) [address] [facility], [place], [address], 02/07/2025 13:12:55 02/07/20 25 02/06/2025 CBC W/DIF F absolute lymphocytes 2.4 10'3/ uL 1.0-4. 0 Not Available [facility] (Lab) [address] [facility], [place], [address], 02/07/2025 13:12:55 02/07/20 25 02/06/2025 CBC W/DIF F absolute monocytes 0.7 10'3/ uL 0.2-1. 0 Not Available [facility] (Lab) [address] [facility], [place], [address], 02/07/2025 13:12:55 02/07/20 25 02/06/2025 CBC W/DIF F absolute eosinophils 0.1 10'3/ uL 0.0-0. 6 Not Available [facility] (Lab) [address] [facility], [place], [address], 02/07/2025 13:12:55 02/07/20 25 02/06/2025 CBC W/DIF F absolute basophils 0.0 10'3/ uL 0.0-0. 3 Not Available [facility] (Lab) [address], [place], [address], 02/07/2025 13:12:55 02/07/2002/06/2025 CBC W/DIF F absolute [...] hyman book. nm.or g/gen derx Not Available [facility] (Lab) [address], [place], [address], 02/07/2025 13:12:55 02/07/2002/06/2025 HEPAT ITIS B SURFA CE ANTIG EN hepatitis B surface antigen Non-re active non-re active This assay was perfo rmed using [employer] ratio n reage nts and test kits. Value s obtai dexter with other assay metho ds or kits canno t be used inter lopez eably . Not Available [facility] (Lab) [address], [place], [address], 02/07/2025 13:12:55 02/07/2002/06/2025 HIV 1/2 ANTIG EN/AN TIBOD Y, REFLE X CONFI RMATI ON HIV antigen/anti body Nonrea ctive nonrea ctive HIV-1 antig en and HIV-1 /HIV- 2 antib odies were not detec ruy. No labor atory evide nce of HIV infec tion. Not Available [facility] (Lab) [address], [place], [address], 02/07/2025 13:12:56 02/07/2002/06/2025 HEPAT ITIS C ANTIB ANITA SCREE N, REFLE X TO CONFI RMATI ON hepatitis C antibody Non-re active non-re active Antib odies to HCV Not Detec ruy, does not exclu de the possi bilit y of expos ure to HCV. Not Available [facility] (Lab) [address] [facility], [place], [address], 02/07/2025 13:12:56 02/07/20 25 02/06/2025 RUBEL LA IGG ANTIB AINTA, QUANT rubella antibodies, IgG Reacti ve reacti ve Not Available [facility] (Lab) [address] [facility], [place], [address], 02/07/2025 13:12:56 02/07/20 25 02/06/2025 RUBEL LA IGG ANTIB ANITA, QUANT rubella antibodies, IgG quant 61.9 IU/mL >=10 Non-r eacti ve (Non- Immun e) <10 IU/mL React essie (Immu ne) > or = 10 IU/mL Not Available [facility] (Lab) [address] [facility], [place], [address], 02/07/2025 13:12:56 02/07/20 25 02/06/2025 TYPE/ RH/SC REEN ABO/Rh type O POS Not Available [facility] (Lab) [address] [facility], [place], [address], 02/07/2025 13:12:57 02/07/20 25 02/06/2025 TYPE/ RH/SC REEN antibody screen NEG Not Available [facility] (Lab) [address] [facility], [place], [address], 02/07/2025 13:12:57 02/07/20 25 02/06/2025 TYPE/ RH/SC REEN exp date 2024 23:59 Not Available [facility] (Lab) [address] [facility], [place], [address], 02/07/2025 13:12:57 02/07/20 25 02/06/2025 RPR SCREE N, REFLE X TITER /CONF IRMAT ION RPR qualitative Nonrea ctive nonrea ctive Not Available [facility] (Lab) [address] [facility], [place], [address], 02/07/2025 13:12:57 02/07/20 25 02/06/2025 HEMOG LOBIN [...] >8.0% Actio n sugge sted Not Available [facility] (Lab) [address] [facility], [place], [address], 02/07/2025 13:12:57 02/07/2002/06/2025 CULTU RE: URINE result report SEE RESULT S BELOW Test: Cultu re: Urine Speci men Sourc e: Urine - Clean Catch Speci men Type: Urine Speci men Date: 2024 1737 Resul t Date: 2024 0700 Resul t Statu s: Final resul t Abnor mal: No Resul ting Lab: [facility] [address] [facility] [address] Tel: CULTU RE ----- ----- ----- --- Cultu re resul t (>=3 organ isms prese nt) indic ates possi ble conta minat ion. Repea t cultu re if sympt oms indic ate. Not Available [facility] (Lab) [address] [facility], [place], [address], 02/08/2025 08:03:32 02/07/20 25 02/06/2025 drug scree n, urine Amphetamines : negati ve Not Available [facility] [address], [place], [address], 02/06/2025 18:30:19 02/07/20 25 02/06/2025 drug scree n, urine Cannabinoids : negati ve Not Available [facility] [address], [place], [address], 02/06/2025 18:30:19 02/07/20 25 02/06/2025 drug scree n, urine Cocaine: negati ve Not Available [facility] [address], [place], [address], 02/06/2025 18:30:19 02/07/20 25 02/06/2025 drug scree n, urine Opiates: negati ve Not Available [facility] [address], [place], [address], 02/06/2025 18:30:19 02/07/20 25 02/06/2025 drug scree n, urine Phenocyclidi ne: negati ve Not Available [facility] [address], [place], [address], 02/06/2025 18:30:19 02/07/20 25 02/06/2025 drug scree n, urine Barbiturates : negati ve Not Available [facility] [address], [place], [address], 02/06/2025 18:30:19 02/07/20 25 02/06/2025 drug scree n, urine Benzodiazepi brayan: negati ve Not Available [facility] [address], [place], [address], 02/06/2025 18:30:19 02/07/20 25 02/06/2025 drug scree n, urine Ethanol: negati ve Not Available [facility] [address], [place], [address], 02/06/2025 18:30:19 02/07/20 25 02/06/2025 drug scree n, urine Hallucinogen s: negati ve Not Available [facility] [address], [place], [address], 02/06/2025 18:30:19 02/07/20 25 02/06/2025 drug scree n, urine Inhalants: negati ve Not Available [facility] [address], [place], [address], 02/06/2025 18:30:19 02/07/20 25 02/06/2025 drug scree n, urine Anabolic Steroids: negati ve Not Available [facility] [address], [place], [address], 02/06/2025 18:30:19 02/07/20 25 02/06/2025 drug scree n, urine Other: negati ve Not Available [facility] [address], [place], [address], 02/06/2025 18:30:19 05/15/20 25 05/15/2025 HEMOG LOBIN (HGB) HGB 10.9 g/dL (based on docume nted legal sex) 11.6-1 5.4 low Not Available [facility] (Lab) [address] [place], [address], 05/16/2025 09:55:38 05/15/2005/15/2025 HEMAT OCRIT (HCT) HCT 35.7 % (based on docume nted legal sex) 34.0-4 5.0 Not Available [facility] (Lab) [address] [place], [address], 05/16/2025 09:55:39 05/15/2005/15/2025 CBC W/DIF F WBC 14.6 10'3/ uL 3.5-10 .5 high Not Available [facility] (Lab) [address], [place], [address], 05/16/2025 09:55:39 05/15/2005/15/2025 CBC W/DIF F RBC 4.01 10'6/ uL (based on docume nted legal sex) 3.80-5 .20 Not Available [facility] (Lab) [address] [facility], [place], [address], 05/16/2025 09:55:39 05/15/2005/15/2025 CBC W/DIF F HGB 10.9 g/dL (based on docume nted legal sex) 11.6-1 5.4 low Not Available [facility] (Lab) [address] [facility], [place], [address], 05/16/2025 09:55:39 05/15/2005/15/2025 CBC W/DIF F HCT 35.7 % (based on docume nted legal sex) 34.0-4 5.0 Not Available [facility] (Lab) [address], [place], [address], 05/16/2025 09:55:39 05/15/2005/15/2025 CBC W/DIF F MCV 89.0 fL 80.0-9 9.0 Not Available [facility] (Lab) [address] [facility], [place], [address], 05/16/2025 09:55:39 05/15/2005/15/2025 CBC W/DIF F MCH 27.2 pg 27.0-3 4.0 Not Available [facility] (Lab) [address] [facility], [place], [address], 05/16/2025 09:55:39 05/15/2005/15/2025 CBC W/DIF F MCHC 30.5 g/dL 32.0-3 5.5 low Not Available [facility] (Lab) [address] [facility], [place], [address], 05/16/2025 09:55:39 05/15/2005/15/2025 CBC W/DIF F RDW 14.5 % 11.0-1 5.0 Not Available [facility] (Lab) [address] [facility], [place], [address], 05/16/2025 09:55:39 05/15/2005/15/2025 CBC W/DIF F plt 218 10'3/ uL 150-40 0 Not Available [facility] (Lab) [address] [facility], [place], [address], 05/16/2025 09:55:39 05/15/2005/15/2025 CBC W/DIF F MPV 11.1 fL 8.8-12 .1 Not Available [facility] (Lab) [address] [facility], [place], [address], 05/16/2025 09:55:39 05/15/2005/15/2025 CBC W/DIF F NRBC's 0.0 % 0.0 Not Available [facility] (Lab) [address] [facility], [place], [address], 05/16/2025 09:55:39 05/15/2005/15/2025 CBC W/DIF F absolute NRBCs 0.0 10'3/ uL no refere nce range establ ished Not Available [facility] (Lab) [address] [facility], [place], [address], 05/16/2025 09:55:39 05/15/2005/15/2025 CBC W/DIF F neutrophils 78.7 % 34.0-7 3.0 high Not Available [facility] (Lab) [address] [facility], [place], [address], 05/16/2025 09:55:39 05/15/2005/15/2025 CBC W/DIF F lymphocytes 15.0 % 15.0-5 0.0 Not Available [facility] (Lab) [address] [facility], [place], [address], 05/16/2025 09:55:39 05/15/2005/15/2025 CBC W/DIF F monocytes 4.9 % 1.0-15 .0 Not Available [facility] (Lab) [address] [facility], [place], [address], 05/16/2025 09:55:39 05/15/2005/15/2025 CBC W/DIF F eosinophils 0.6 % 0.0-8. 0 Not Available [facility] (Lab) [address] [facility], [place], [address], 05/16/2025 09:55:39 05/15/2005/15/2025 CBC W/DIF F basophils 0.3 % 0.0-2. 0 Not Available [facility] (Lab) [address] [facility], [place], [address], 05/16/2025 09:55:39 05/15/2005/15/2025 CBC W/DIF F immature granulocytes 0.5 % no define d refere nce range Immat ure Granu locyt es (IG) repre sents autom ated enume ratio n of Metam yeloc ytes, Myelo cytes and Promy elocy shlomo when IG is < 5%. Blast s are not inclu ded in IG and repor ruy separ ately if prese nt. Not Available [facility] (Lab) [address] [facility], [place], [address], 05/16/2025 09:55:39 05/15/2005/15/2025 CBC W/DIF F absolute neutrophils 11.4 10'3/ uL 1.5-8. 0 high Not Available [facility] (Lab) [address] [facility], [place], [address], 05/16/2025 09:55:39 05/15/2005/15/2025 CBC W/DIF F absolute lymphocytes 2.2 10'3/ uL 1.0-4. 0 Not Available [facility] (Lab) [address], [place], [address], 05/16/2025 09:55:39 05/15/2005/15/2025 CBC W/DIF F absolute monocytes 0.7 10'3/ uL 0.2-1. 0 Not Available [facility] (Lab) [address] [facility], [place], [address], 05/16/2025 09:55:39 05/15/2005/15/2025 CBC W/DIF F absolute eosinophils 0.1 10'3/ uL 0.0-0. 6 Not Available [facility] (Lab) [address] [facility], [place], [address], 05/16/2025 09:55:39 05/15/2005/15/2025 CBC W/DIF F absolute basophils 0.1 10'3/ uL 0.0-0. 3 Not Available [facility] (Lab) [address] [facility], [place], [address], 05/16/2025 09:55:39 05/15/2005/15/2025 CBC W/DIF F absolute [...] hyman book. nm.or g/gen derx Not Available [facility] (Lab) [address], [place], [address], 05/16/2025 09:55:39 05/15/2005/15/2025 GTT - GESTA KHANH Bryce KNIGHTTracie Janel, ACOG OB glucose, 1 hour screen 115 mg/dL 70-135 Not Available [facility] (Lab) [address] [facility], [place], [address], 05/16/2025 09:55:40 05/15/20 25 05/15/2025 URIC ACID uric acid 4.1 mg/dL 2.3-6. 6 Not Available [facility] (Lab) [address] [place], [address], 05/16/2025 09:55:40 05/15/20 25 05/15/2025 CMP(C OMPRE HENSI VE METAB OLIC PANEL ) sodium 138 mmol/ L 133-14 6 Not Available [facility] (Lab) [address] [facility], [place], [address], 05/16/2025 09:55:41 05/15/20 25 05/15/2025 CMP(C OMPRE HENSI VE METAB OLIC PANEL ) potassium 4.1 mmol/ L 3.5-5. 1 Not Available [facility] (Lab) [address] [facility], [place], [address], 05/16/2025 09:55:41 05/15/20 25 05/15/2025 CMP(C OMPRE HENSI VE METAB OLIC PANEL ) chloride 104 mmol/ L 98-107 Not Available [facility] (Lab) [address] [place], [address], 05/16/2025 09:55:41 05/15/20 25 05/15/2025 CMP(C OMPRE HENSI VE METAB OLIC PANEL ) carbon dioxide 24 mmol/ L 21-31 Not Available [facility] (Lab) [address] [place], [address], 05/16/2025 09:55:41 05/15/20 25 05/15/2025 CMP(C OMPRE HENSI VE METAB OLIC PANEL ) anion gap 10 mmol/ L 4-13 Not Available [facility] (Lab) [address] [facility] [place], [address], 05/16/2025 09:55:41 05/15/20 25 05/15/2025 CMP(C OMPRE HENSI VE METAB OLIC PANEL ) blood urea nitrogen 7 mg/dL 7-25 Not Available [facility] (Lab) [address] [facility], [place], [address], 05/16/2025 09:55:41 05/15/20 25 05/15/2025 CMP(C OMPRE HENSI VE METAB OLIC PANEL ) creatinine 0.55 mg/dL 0.60-1 .30 low Not Available [facility] (Lab) [address] [facility], [place], [address], 05/16/2025 09:55:41 05/15/20 25 05/15/2025 CMP(C OMPRE HENSI VE METAB OLIC PANEL ) egfrcr (CKD-epi 2020) >90 mL/mi n/1.7 3_m2 >=60 Not Available [facility] (Lab) [address] [facility], [place], [address], 05/16/2025 09:55:41 05/15/2005/15/2025 CMP(C OMPRE HENSI VE METAB OLIC PANEL ) calcium 8.7 mg/dL 8.3-10 .5 Not Available [facility] (Lab) [address] [place], [address], 05/16/2025 09:55:41 05/15/2005/15/2025 CMP(C OMPRE HENSI VE METAB OLIC PANEL ) glucose 115 mg/dL 70-100 high Not Available [facility] (Lab) [address] [place], [address], 05/16/2025 09:55:41 05/15/2005/15/2025 CMP(C OMPRE HENSI VE METAB OLIC PANEL ) protein, total 5.7 g/dL 6.4-8. 3 low Not Available [facility] (Lab) [address] [facility] [place], [address], 05/16/2025 09:55:41 05/15/20 25 05/15/2025 CMP(C OMPRE HENSI VE METAB OLIC PANEL ) albumin 3.1 g/dL 3.5-5. 0 low Not Available [facility] (Lab) [address] [facility], [place], [address], 05/16/2025 09:55:41 05/15/20 25 05/15/2025 CMP(C OMPRE HENSI VE METAB OLIC PANEL ) ALT 9 units /L 9-43 Not Available [facility] (Lab) [address] [facility], [place], [address], 05/16/2025 09:55:41 05/15/20 25 05/15/2025 CMP(C OMPRE HENSI VE METAB OLIC PANEL ) alkaline phosphatase 114 units /L 34-104 high Not Available [facility] (Lab) [address] [facility], [place], [address], 05/16/2025 09:55:41 05/15/20 25 05/15/2025 CMP(C OMPRE HENSI VE METAB OLIC PANEL ) AST 11 units /L 13-39 low Not Available [facility] (Lab) [address] [facility], [place], [address], 05/16/2025 09:55:41 05/15/2005/15/2025 CMP(C OMPRE HENSI VE METAB OLIC PANEL ) bilirubin, total 0.3 mg/dL 0.2-1. 2 Not Available [facility] (Lab) [address] [place], [address], 05/16/2025 09:55:41 05/15/2005/15/2025 HIV 1/2 ANTIG EN/AN TIBOD Y, REFLE X CONFI RMATI ON HIV antigen/anti body Nonrea ctive nonrea ctive HIV-1 antig en and HIV-1 /HIV- 2 antib odies were not detec ruy. No labor atory evide nce of HIV infec tion. Not Available [facility] (Lab) [address] [facility], [place], [address], 05/16/2025 09:55:41 05/15/20 25 05/15/2025 PROTE IN/CR EATIN INE RATIO , URINE creatinine, urine 13.0 mg/dL R-No refer ence range estab lishe d for this assay Not Available [facility] (Lab) [address], [place], [address], 05/16/2025 09:55:42 05/15/20 25 05/15/2025 PROTE IN/CR EATIN INE RATIO , URINE protein, urine <4 mg/dL R-No refer ence range estab lishe d for this assay Not Available [facility] (Lab) [address], [place], [address], 05/16/2025 09:55:42 05/15/20 25 05/15/2025 PROTE IN/CR [...] fican t prote inuri a. Not Available [facility] (Lab) [address], [place], [address], 05/16/2025 09:55:42 05/15/20 25 05/15/2025 RPR SCREE N, REFLE X TITER /CONF IRMAT ION RPR qualitative Nonrea ctive nonrea ctive Not Available [facility] (Lab) [address], [place], [address], 05/16/2025 09:55:42 06/26/20 25 06/26/2025 PROTE IN/CR EATIN INE RATIO , URINE creatinine, urine 177.6 mg/dL R-No refer ence range estab lishe d for this assay Not Available [facility] (Lab) [address], [place], [address], 06/27/2025 04:29:05 06/26/20 25 06/26/2025 PROTE IN/CR EATIN INE RATIO , URINE protein, urine 15 mg/dL R-No refer ence range estab lishe d for this assay Not Available [facility] (Lab) [address], [place], [address], 06/27/2025 04:29:05 06/26/20 25 06/26/2025 PROTE IN/CR [...] fican t prote inuri a. Not Available [facility] (Lab) [address], [place], [address], 06/27/2025 04:29:05 06/26/20 25 06/26/2025 CBC W/DIF F WBC 13.4 10'3/ uL 3.5-10 .5 high Not Available [facility] (Lab) [address], [place], [address], 06/27/2025 04:29:05 06/26/20 25 06/26/2025 CBC W/DIF F RBC 4.22 10'6/ uL (based on docume nted legal sex) 3.80-5 .20 Not Available [facility] (Lab) [address], [place], [address], 06/27/2025 04:29:05 06/26/20 25 06/26/2025 CBC W/DIF F HGB 11.9 g/dL (based on docume nted legal sex) 11.6-1 5.4 Not Available [facility] [facility] [address], [place], [address], 06/27/2025 04:29:05 06/26/2006/26/2025 CBC W/DIF F HCT 37.5 % (based on docume nted legal sex) 34.0-4 5.0 Not Available [facility] (Lab) [address], [place], [address], 06/27/2025 04:29:05 06/26/2006/26/2025 CBC W/DIF F MCV 88.9 fL 80.0-9 9.0 Not Available [facility] (Lab) [address], [place], [address], 06/27/2025 04:29:05 06/26/2006/26/2025 CBC W/DIF F MCH 28.2 pg 27.0-3 4.0 Not Available [facility] (Lab) [address], [place], [address], 06/27/2025 04:29:05 06/26/2006/26/2025 CBC W/DIF F MCHC 31.7 g/dL 32.0-3 5.5 low Not Available [facility] (Lab) [address], [place], [address], 06/27/2025 04:29:05 06/26/2006/26/2025 CBC W/DIF F RDW 14.6 % 11.0-1 5.0 Not Available [facility] (Lab) [address], [place], [address], 06/27/2025 04:29:05 06/26/2006/26/2025 CBC W/DIF F plt 224 10'3/ uL 150-40 0 Not Available [facility] (Lab) [address] [place], [address], 06/27/2025 04:29:05 06/26/20 25 06/26/2025 CBC W/DIF F MPV 12.2 fL 8.8-12 .1 high Not Available [facility] (Lab) [address], [place], [address], 06/27/2025 04:29:05 06/26/20 25 06/26/2025 CBC W/DIF F NRBC's 0.0 % 0.0 Not Available [facility] (Lab) [address], [place], [address], 06/27/2025 04:29:05 06/26/20 25 06/26/2025 CBC W/DIF F absolute NRBCs 0.0 10'3/ uL no refere nce range establ ished Not Available [facility] (Lab) [address], [place], [address], 06/27/2025 04:29:05 06/26/20 25 06/26/2025 CBC W/DIF F neutrophils 73.2 % 34.0-7 3.0 high Not Available [facility] (Lab) [address], [place], [address], 06/27/2025 04:29:05 06/26/20 25 06/26/2025 CBC W/DIF F lymphocytes 18.3 % 15.0-5 0.0 Not Available [facility] (Lab) [address], [place], [address], 06/27/2025 04:29:05 06/26/20 25 06/26/2025 CBC W/DIF F monocytes 7.5 % 1.0-15 .0 Not Available [facility] (Lab) [address], [place], [address], 06/27/2025 04:29:05 06/26/20 25 06/26/2025 CBC W/DIF F eosinophils 0.4 % 0.0-8. 0 Not Available [facility] (Lab) [address], [place], [address], 06/27/2025 04:29:05 06/26/20 25 06/26/2025 CBC W/DIF F basophils 0.2 % 0.0-2. 0 Not Available [facility] (Lab) [address], [place], [address], 06/27/2025 04:29:05 06/26/20 25 06/26/2025 CBC W/DIF [...] separ ately if prese nt. Not Available [facility] (Lab) [address], [place], [address], 06/27/2025 04:29:05 06/26/20 25 06/26/2025 CBC W/DIF F absolute neutrophils 9.8 10'3/ uL 1.5-8. 0 high Not Available [facility] (Lab) [address], [place], [address], 06/27/2025 04:29:05 06/26/20 25 06/26/2025 CBC W/DIF F absolute lymphocytes 2.5 10'3/ uL 1.0-4. 0 Not Available [facility] (Lab) [address], [place], [address], 06/27/2025 04:29:05 06/26/20 25 06/26/2025 CBC W/DIF F absolute monocytes 1.0 10'3/ uL 0.2-1. 0 Not Available [facility] (Lab) [address], [place], [address], 06/27/2025 04:29:05 06/26/20 25 06/26/2025 CBC W/DIF F absolute eosinophils 0.1 10'3/ uL 0.0-0. 6 Not Available [facility] (Lab) [address], [place], [address], 06/27/2025 04:29:05 06/26/20 25 06/26/2025 CBC W/DIF F absolute basophils 0.0 10'3/ uL 0.0-0. 3 Not Available [facility] (Lab) [address], [place], [address], 06/27/2025 04:29:05 06/26/2006/26/2025 CBC W/DIF F absolute immature granulocytes 0.1 10'3/ uL 0.00-0 .10 Refer ence range s for nonbi nary/ inter sex or unspe cifie d gende r patie nts have not been estab lishe d. Pleas e [facility] for range s estab lishe d for cisge nder patie nts and evalu ate in the clini patrice kristal xt of the indiv idual patie nt: https :[email or web address] hyman book. nm.or g/gen derx Not Available [facility] (Lab) [address], [place], [address], 06/27/2025 04:29:05 06/26/2006/26/2025 URIC ACID uric acid 4.8 mg/dL 2.3-6. 6 Not Available [facility] (Lab) [address] [place], [address], 06/27/2025 04:29:06 06/26/2006/26/2025 CMP(C OMPRE HENSI VE METAB OLIC PANEL ) sodium 138 mmol/ L 133-14 6 Not Available [facility] (Lab) [address], [place], [address], 06/27/2025 04:29:06 06/26/20 25 06/26/2025 CMP(C OMPRE HENSI VE METAB OLIC PANEL ) potassium 4.0 mmol/ L 3.5-5. 1 Not Available [facility] (Lab) [address] [place], [address], 06/27/2025 04:29:06 06/26/20 25 06/26/2025 CMP(C OMPRE HENSI VE METAB OLIC PANEL ) chloride 103 mmol/ L 98-107 Not Available [facility] (Lab) [address], [place], [address], 06/27/2025 04:29:06 06/26/20 25 06/26/2025 CMP(C OMPRE HENSI VE METAB OLIC PANEL ) carbon dioxide 26 mmol/ L 21-31 Not Available [facility] (Lab) [address], [place], [address], 06/27/2025 04:29:06 06/26/2006/26/2025 CMP(C OMPRE HENSI VE METAB OLIC PANEL ) anion gap 9 mmol/ L 4-13 Not Available [facility] (Lab) [address], [place], [address], 06/27/2025 04:29:06 06/26/2006/26/2025 CMP(C OMPRE HENSI VE METAB OLIC PANEL ) blood urea nitrogen 7 mg/dL 7-25 Not Available [facility] (Lab) [address], [place], [address], 06/27/2025 04:29:06 06/26/20 25 06/26/2025 CMP(C OMPRE HENSI VE METAB OLIC PANEL ) creatinine 0.66 mg/dL 0.60-1 .30 Not Available [facility] (Lab) [address], [place], [address], 06/27/2025 04:29:06 06/26/2006/26/2025 CMP(C OMPRE HENSI VE METAB OLIC PANEL ) egfrcr (CKD-epi 2020) >90 mL/mi n/1.7 3_m2 >=60 Not Available [facility] (Lab) [address], [place], [address], 06/27/2025 04:29:06 06/26/20 25 06/26/2025 CMP(C OMPRE HENSI VE METAB OLIC PANEL ) calcium 9.0 mg/dL 8.3-10 .5 Not Available [facility] (Lab) [address], [place], [address], 06/27/2025 04:29:06 06/26/20 25 06/26/2025 CMP(C OMPRE HENSI VE METAB OLIC PANEL ) glucose 74 mg/dL 70-100 Not Available [facility] (Lab) [address], [place], [address], 06/27/2025 04:29:06 06/26/2006/26/2025 CMP(C OMPRE HENSI VE METAB OLIC PANEL ) protein, total 6.1 g/dL 6.4-8. 3 low Not Available [facility] (Lab) [address], [place], [address], 06/27/2025 04:29:06 06/26/20 25 06/26/2025 CMP(C OMPRE HENSI VE METAB OLIC PANEL ) albumin 3.3 g/dL 3.5-5. 0 low Not Available [facility] (Lab) [address] [place], [address], 06/27/2025 04:29:06 06/26/20 25 06/26/2025 CMP(C OMPRE HENSI VE METAB OLIC PANEL ) ALT 36 units /L 9-43 Not Available [facility] (Lab) [address] [place], [address], 06/27/2025 04:29:06 06/26/20 25 06/26/2025 CMP(C OMPRE HENSI VE METAB OLIC PANEL ) alkaline phosphatase 131 units /L 34-104 high Not Available [facility] (Lab) [address] [place], [address], 06/27/2025 04:29:06 06/26/20 25 06/26/2025 CMP(C OMPRE HENSI VE METAB OLIC PANEL ) AST 20 units /L 13-39 Not Available [facility] (Lab) [address], [place], [address], 06/27/2025 04:29:06 06/26/20 25 06/26/2025 CMP(C OMPRE HENSI VE METAB OLIC PANEL ) bilirubin, total 0.3 mg/dL 0.2-1. 2 Not Available [facility] (Lab) [address], [place], [address], 06/27/2025 04:29:06 07/10/20 25 07/10/2025 CULTU RE: [...] t Abnor mal: No Resul ting Lab: [facility] [address] [facility] [address] Tel: CULTU RE ----- ----- ----- --- No Group B strep isola ruy at 2 days (bailee ctive broth enhan cemen t) Not Available [facility] (Lab) [address], [place], [address], 07/13/2025 15:08:33 02/07/20 25 02/06/2025 US, opal lemos, nucha l trans lucen cy No observ ation record ed. [email or web address] [facility] [address], [place], [address], 02/06/2025 17:26:10 02/07/20 25 02/06/2025 US, opal lemos, follo w-up No observ ation record ed. [email or web address] [address], [place], [address], 02/07/2025 11:49:39 03/27/20 25 03/27/2025 US, obste tric, 2nd or 3rd trime ster No observ ation record ed. [email or web address] [facility] [address], [place], [address], 03/27/2025 16:50:03 03/27/20 25 03/27/2025 US, obste tric, 2nd or 3rd trime ster No observ ation record ed. [email or web address] Viv[address], [place], [address], 04/01/2025 20:55:55 04/24/20 25 04/24/2025 US, obste tric, follo w-up No observ ation record ed. [email or web address] [facility] [address], [place], [address], 04/24/2025 18:50:20 04/24/20 25 04/24/2025 US, obste tric, follo w-up No observ ation record ed. [email or web address] [address], [place], [address], 05/02/2025 18:12:06 05/05/20 25 05/05/2025 US, obste tric, limit ed No observ ation record ed. [address] [place] [address], [address], 05/08/2025 11:23:32 05/05/20 25 05/05/2025 US, obste tric, limit ed No observ ation record ed. [address], [place], [address], 05/08/2025 11:23:15 05/06/20 25 05/05/2025 non-s tress test No observ ation record ed. [facility] [address], [place], [address], 05/14/2025 16:17:57 06/12/2006/12/2025 US, obste tric, follo w-up No observ ation record ed. [email or web address] [facility] [address], [place], [address], 06/12/2025 13:37:49 06/12/2006/12/2025 US, obste tric, follo w-up No observ ation record ed. [email or web address] [address], [place], [address], 06/14/2025 12:40:46 06/26/2006/26/2025 non-s tress test No observ ation record ed. [email or web address] [facility] [address], [place], [address], 06/26/2025 17:40:02 06/26/20 non-s tress test No observ ation record ed. [email or web address] [facility] [address], [place], [address], 06/26/2025 17:40:25 07/03/2007/03/2025 US, obste tric, bioph ysica l profi le + non-s tress test No observ ation record ed. [email or web address] [facility] [address], [place], [address], 07/03/2025 10:21:51 07/03/2007/03/2025 US, obste tric, bioph ysica l profi le + non-s tress test No observ ation record ed. [email or web address] [address], [place], [address], 07/03/2025 10:36:03 07/03/2007/03/2025 non-s tress test No observ ation record ed. [address], [place], [address], 07/03/2025 17:34:00 07/03/20 non-s tress test No observ ation record ed. [address], [place], [address], 07/03/2025 16:02:31 07/10/2007/10/2025 US, obste tric, follo w-up No observ ation record ed. [email or web address] [address], [place], [address], 07/10/2025 11:53:53 07/10/2007/10/2025 US, obste tric, follo w-up No observ ation record ed. [facility] [address], [place], [address], 07/10/2025 13:24:28 07/10/2007/10/2025 US, obste tric, bioph ysica l profi le + non-s tress test No observ ation record ed. [facility] [address], [place], [address], 07/10/2025 13:24:41 07/10/2007/10/2025 non-s tress test No observ ation record ed. [address], [place], [address], 07/10/2025 16:54:42 07/10/20 non-s tress test No observ ation record ed. [address], [place], [address], 07/10/2025 16:55:51 07/17/2007/17/2025 non-s tress test No observ ation record ed. [email or web address] [facility] [address], [place], [address], 07/19/2025 11:50:49 07/17/20 non-s tress test No observ ation record ed. [facility] [address], [place], [address], 07/17/2025 10:56:47 07/17/2007/17/2025 US, obste tric, bioph ysica l profi le + non-s tress test No observ ation record ed. [email or web address] [facility] [address], [place], [address], 07/17/2025 13:24:17 07/17/2007/17/2025 US, obste tric, bioph ysica l profi le + non-s tress test No observ ation record ed. [email or web address] [address], [place], [address], 07/17/2025 11:37:56 07/24/2007/24/2025 US, obste tric, bioph ysica l profi le + non-s tress test No observ ation record ed. [email or web address] [address], [place], [address], 07/24/2025 11:16:54 07/24/2007/24/2025 US, obste tric, bioph ysica l profi le + non-s tress test No observ ation record ed. [email or web address] [facility] [address], [place], [address], 07/24/2025 18:17:48 07/24/2007/24/2025 non-s tress test No observ ation record ed. [email or web address] [facility] [address], [place], [address], 07/24/2025 18:19:09 07/24/20 25 non-s tress test No observ ation record ed. [email or web address] [facility] [address], [place], [address], 07/24/2025 16:00:08 Result Notes None recorded. Problems Name Problem SNOMED Code Status Onset Date Resolution Date Notes Provider Name and Address Organization Details Recorded Time Pregnanc y test negative 908874581 Completed 201409/02/2020 Pregnanc y examinat ion or test, negative result;R ecorded Elsewher e: No Locat ion: [facility] S ource: EHR Marketing Instructor elena: N Practi ce ID: 0001 Grabiel lable Time: 03:15:00 PM Beverley lopez, [facility] 0 17:56:19 Obesity [id number] Completed 201409/03/2020 Obesity, unspecif ied;Prac bronson ID: 0001 Beverley lopez, [facility] 0 14:20:47 Speciali zed medical examinat ion Completed 201409/02/2020 Routine gynecolo gical examinat ion;Prac bronson ID: 0001 Beverley lopez, [facility] 0 17:57:40 Screenin g for malignan t neoplasm of cervix Completed 201409/02/2020 Pap Smear;Pr actice ID: 0001 Beverley lopez, [facility] 0 17:56:38 Educatio n Completed 201409/02/2020 Family planning ;Recorde d Elsewher e: No Locat ion: [facility] S ource: EHR Marketing Instructor elena: N Practi ce ID: 0001 Grabiel lable Time: 04:00:00 PM Beverley lopez [facility] 0 17:55:08 Female rosa m covington [id number] Completed 201410/17/2020 Rosa M covington, female, of unspecif ied origin;P wandytice ID: 0001 Beverley lopez, [facility] 1 10:55:45 Body mass index 30+ - obesity 882272413 Completed 201510/17/2020 Body mass index (BMI) 39.0-39. 9, adult;Re corded Elsewher e: No Locat ion: [facility] S ource: EHR Marketing Instructor elena: N Practi ce ID: 0001 Grabiel lable Time: 11:00:00 AM Beverley [facility] 1 10:55:40 Syncope and collapse [id number] Completed 201510/17/2020 Syncope and collapse ;Recorde d Elsewher e: No Locat ion: [facility] S ource: EHR Marketing Instructor elena: N Practi ce ID: 0001 Grabiel lable Time: 10:30:00 AM Beverley lopez [facility] 1 10:56:12 Gestatio n less than 9 weeks [id number] Completed 201509/02/2020 Less than 8 weeks gestatio n of pregnanc y;Practi ce ID: 0001 Beverley [facility] 0 17:55:27 Pregnanc y, childbir th and puerperi um finding Completed 201510/17/2020 Encntr for suprvsn of normal first preg, first trimeste r;Practi ce ID: 0001 Beverley [facility] 1 10:55:59 Gestatio n period, 12 weeks [id number] Completed 201509/02/2020 12 weeks gestatio n of pregnanc y;Practi ce ID: 0001 Beverley [facility], [facility] 0 17:55:30 Pregnanc y, childbir th and puerperi um finding Completed 201509/02/2020 Encntr for suprvsn of normal first preg, second trimeste r;Practi ce ID: 0001 Beverley lopez, [facility] 0 17:56:27 Gestatio n period, 32 weeks [id number] Completed 201509/02/2020 32 weeks gestatio n of pregnanc y;Practi ce ID: 0001 Beverley Dos Santostz jessica, [facility] 0 17:55:35 Pregnanc y, childbir th and puerperi um finding Completed 201509/03/2020 Encounte r for supervis ion of normal first pregnanc y, third trimeste r;Record ed Elsewher e: No Locat ion: [facility] S ource: EHR Marketing Instructor elena: N Practi ce ID: 0001 Grabiel lable Time: 05:30:00 PM Beverley Dos Santostz jessica, [facility] 0 14:20:36 Gestatio n period, 33 weeks [id number] Completed 201509/02/2020 33 weeks gestatio n of pregnanc y;Record ed Elsewher e: No Locat ion: [facility] S ource: EHR Marketing Instructor elena: N Practi ce ID: 0001 Grabiel lable Time: 09:00:00 AM Beverley lopez, [facility] 0 17:55:39 Normal pregnanc y in multigra [place] [id number] Completed 201509/02/2020 Encounte r for suprvsn of normal pregnanc y, third trimeste r;Practi ce ID: 0001 Beverley Sun jessica, [facility] 0 17:56:11 Gestatio n period, 34 weeks [id number] Completed 201509/02/2020 34 weeks gestatio n of pregnanc y;Practi ce ID: 0001 Beverley lopez, [facility] 0 17:55:42 Pregnanc y-induce d hyperten tonya Completed 201503/27/2021 Gestatio nal htn w/o signific ant proteinu che, third trimeste r;Record ed Elsewher e: No Locat ion: [facility] S ource: EHR Marketing Instructor elena: N Practi ce ID: 0001 Grabiel lable Time: 03:00:00 PM Beverley lopez, [facility] 1 16:36:34 Gestatio n period, 36 weeks [id number] Completed 201509/02/2020 36 weeks gestatio n of pregnanc y;Practi ce ID: 0001 Beverley lopez, [facility] 0 17:55:48 Single live from singleto n pregnanc y [id number] Completed 201509/03/2020 Single live ;Pr actice ID: 0001 Beverley lopez, [facility] 0 14:20:54 Gestatio n period, 37 weeks [id number] Completed 201509/02/2020 37 weeks gestatio n of pregnanc y;Practi ce ID: 0001 Beverley lopez, [facility] 0 17:55:50 Pregnanc y-induce d hyperten tonya Completed 201509/02/2020 Gestatio nal htn w/o signific ant proteinu che, unsp trimeste r;Practi ce ID: 0001 Beverley lopez, [facility] 0 17:57:29 Hyperten sive disorder [id number] Completed 201503/27/2021 Benign hyperten tonya;Rec orded Elsewher e: No Locat ion: [facility] S ource: EHR Marketing Instructor elena: N Practi ce ID: 0001 Grabiel lable Time: 10:30:00 AM Beverley lopez, [facility] 5 19:18:30 Non-prot einuric hyperten tonya of pregnanc y [id number] Completed 201510/17/2020 Gestatnl htn without signific ant protein, comp the puerp;Pr actice ID: 0001 Beverley Sun null, [facility] 1 10:56:02 Lochia finding Completed 201510/17/2020 Encounte r for routine postpart um follow-u p;Pracxenia ce ID: 0001 Beverley Sun jessica, [facility] 1 10:55:[address] Concept Completed 201809/02/2020 Encntr for search planner exam (general ) (routine ) w/o abn findings ;Recorde d Elsewher e: No Locat ion: [facility] S ource: EHR Marketing Instructor elena: N [place] ce ID: 0001 Grabiel lable Time: 10:30:00 AM Beverley Corinne lopez [facility] 0 17:56:45 Pregnanc y detectio n examinat ion Completed 201809/02/2020 Encounte r for pregnanc y test, result positive ;Practic e ID: 0001 Beverley lopez [facility] 0 17:56:17 Uterine size for dates discrepa ncy Completed 201810/17/2020 Uterine size-malia e discrepa ncy, first trimeste r;Mathieuti ce ID: 0001 Beverley [facility], [facility] 1 10:56:17 Secondar y amenorrh ea [id number] Completed 201810/17/2020 Secondar y amenorrh ea;Recor ded Elsewher e: No Locat ion: [facility] S ource: EHR Marketing Instructor elena: N Practi ce ID: 0001 Grabiel lable Time: 10:30:00 AM Beverley Corinne jessica, [facility] 1 10:56:05 Infectio n screenin g Completed 201809/02/2020 Encounte r for screenin g for oth infec/pa rastc diseases ;Recorde d Elsewher e: No Locat ion: [facility] S ource: EHR Marketing Instructor elena: N Practi ce ID: 0001 Grabiel lable Time: 10:30:00 AM Beverley Corinne jessica, [facility] 0 17:56:03 Syphilis test finding [id number] Completed 201809/03/2020 Encntr screen for infectio ns w sexl mode of transmis s;Record ed Elsewher e: No Locat ion: [facility] S ource: EHR Marketing Instructor elena: N Practi ce ID: 0001 Grabiel lable Time: 10:30:00 AM Beverley Sun jessica, [facility] 0 14:20:58 Finding of viabilit y of pregnanc y [id number] Completed 201809/02/2020 Pregnanc y w inconclu sive viabilit y, unsp;Pra ctice ID: 0001 Beverley [facility], [facility] 0 17:55:21 Finding of contents of cervix [id number] Completed 201809/02/2020 Weeks of gestatio n of pregnanc y not specifie d;Practi ce ID: 0001 Beverley [facility], [facility] 0 17:55:14 Threaten ed miscarri age [id number] Completed 201810/17/2020 Threaten ed ;Recorde d Elsewher e: No Locat ion: [facility] S ource: EHR Marketing Instructor elena: N Practi ce ID: 0001 Grabiel lable Time: 12:30:00 PM Beverley lopez, [facility] 1 10:56:15 Gestatio n period, 8 weeks [id number] Completed 201809/02/2020 8 weeks gestatio n of pregnanc y;Practi ce ID: 0001 Beverley lopez, [facility] 0 17:55:55 Rubella screenin g status [id number] Completed 201809/02/2020 Encounte r for antenata l screenin g, unspecif ied;Benitez rded Elsewher e: No [facility] S ource: EHR Marketing Instructor elena: N Practi ce ID: 0001 Grabiel lable Time: 04:30:00 PM Beverley lopez [facility] 0 17:56:34 Antenata l screenin g Completed 201809/02/2020 Encounte r for antenata l screenin g for nuchal transluc ency;Pra ctice ID: 0001 Beverley lopez, [facility] 0 17:57:11 Antenata l screenin g for malforma tion Completed 201809/02/2020 Encounte r for antenata l screenin g for malforma tions;Re corded Elsewher e: No [facility] S ource: EHR Marketing Instructor elena: N Practi ce ID: [id number] Grabiel lable Time: 08:15:00 AM Beverley lopez [facility] 0 17:57:13 Gestatio n period, 29 weeks [id number] Completed 201809/02/2020 29 weeks gestatio n of pregnanc y;Record ed Elsewher e: No Locat ion: [facility] S ource: EHR Marketing Instructor elena: N Practi ce ID: [id number] Grabiel lable Time: 03:45:00 PM Beverley [facility] 0 17:55:32 Clinical finding Completed 201810/17/2020 Tachycar rishi, unspecif ied;Benitez rded Elsewher e: No Locat ion: [facility] S ource: EHR Marketing Instructor elena: N Practi ce ID: [id number] Grabiel lable Time: 11:15:00 AM Beverley lopez, [facility] 1 10:55:44 Clinical finding Completed 201809/02/2020 Obesity, unspecif ied;Benitez rded Elsewher e: No Locat ion: [facility] S ource: EHR Marketing Instructor elena: N Practi ce ID: [id number] Grabiel lable Time: 03:00:00 PM Beverley lopez, [facility] 0 17:55:24 Finding of body mass index [id number] Completed 201809/02/2020 Body mass index (BMI) 40.0-44. 9, adult;Re corded Elsewher e: No [facility]: EHR Marketing Instructor elena: N Practi ce ID: [id number] Grabiel lable Time: 02:00:00 PM Beverley lopez, [facility] 0 17:56:59 Gestatio n period, 35 weeks [id number] Completed 201809/02/2020 35 weeks gestatio n of pregnanc y;Record ed Elsewher e: No Locat ion: Liviabhaveshmario alberto malik [facility] S ource: EHR Marketing Instructor elena: N Practi ce ID: 0001 Grabiel lable Time: 02:00:00 PM Beverley lopez, [facility] 0 17:55:44 Severe obesity complica ting pregnanc y [id number] Completed 201810/17/2020 Obesity complica ting pregnanc y, third trimeste r;Record ed Elsewher e: No Locat ion: Liviaella tracie [facility] S ource: EHR Marketing Instructor elena: N Practi ce ID: 0001 Grabiel lable Time: 03:00:00 PM Beverley lopez, [facility] 1 10:56:10 Gestatio n period, 38 weeks [id number] Completed 201809/02/2020 38 weeks gestatio n of pregnanc y;Record ed Elsewher e: No [facility] S ource: EHR Marketing Instructor elena: N Practi ce ID: 0001 Grabiel lable Time: 11:00:00 AM Beverley lopez, [facility] 0 17:55:53 Hyperten tonya in the obstetri c context Completed 201810/17/2020 Pre-exis ting essentia l htn comp pregnanc y, third trimeste r;Practi ce ID: 0001 Beverley lopez, [facility] 1 10:55:52 Attentio n deficit hyperact ivity disorder 787626405 Active 2024 stopped taking medicati on when found out Beverley lopez, [facility] 5 19:38:30 Mixed anxiety and depressi ve disorder 000385218 Active 2024 Beverley lopez, [facility] 5 19:37:00 Hyperten sive disorder 19715499 Active 2024 Medina Whitaker, JENNIFER [address], [place], [address], [facility] 5 17:26:39 Headache 39167220 Active 2024 Beverley lopez, [facility] 5 19:37:14 Pregnanc y 15172510 Active 2024 Beverley lopez [facility] 19:36:35 Mixed anxiety and depressi ve disorder 836125686 Active 2024 Beverley lopez [facility] 5 19:37:00 Headache 77428624 Active 2024 Beverley lopez [facility] 19:37:14 Past pregnanc y history of gestatio nal hyperten tonya 285682271 Active 2024 2016 pregnanc y start bASA x 2 daily Medina Whitaker CNM [address], [place], [address], [facility] 17:26:14 Attentio n deficit hyperact ivity disorder 996632509 Active 2024 stopped taking medicati on when found out Beverley Sun [facility] 19:38:30 Obesity 751021466 Active 2024 antenata l testing @ 34wks [facility] 5 20:55:07 Hyperten tonya AND/OR vomiting complica ting pregnanc y childbir th AND/OR puerperi 745206173 Active 2024 Medina Whitaker CNM [address], [place], [address], [facility] 5 15:51:32 Notes:Encounter for antenata l screening of mother Recorded Elsewhere: No Location: [facility] Source: EHR Chronic: N Practice ID: [id number] Billable Time: 10:30:00 AM Encounter for screening of mother Practice ID: [id number] Encounter for screening of mother Recorded Elsewhere: No Location: [facility] Source: EHR Chronic: N Practice ID: [id number] Billable Time: 10:30:00 AM Encounter for screening of mother Practice ID: [id number] Problem Notes None recorded. Procedures Surgical History Date Name Laterality Status Provider Name and Address Organization Details Recorded Time 1 Date of Last Pap Smear completed Beverley Sun [facility] 02/06/2025 08:37:03 1 extraction of wisdom tooth completed Beverley Sun [facility] 02/06/2025 19:33:27 Imaging Results None [...] Prescrib ed Elsewher e: No Locat ion: [facility] odify By: [email or web address] Bosch ter DateTime : [...] Prescrib ed Elsewher e: No Locat ion: [facility] odify By: [email or web address] Bosch ter DateTime : [...] cycle days 5-9 06/28 completed Prescrib camilo Cisnerosher e: No Locat ion: [facility] M odify By: [email or web address] z Encoun [...] Blayneher e: No Locat ion: Sally malik [facility] M odify By: [email or web address] Encounte r DateTime [...] Address Organization Details Last Updated DateTime 07/17/2025 143023.95995 g 130/78 mm[Hg] Barbie Coronado [facility] 07/17/2025 10:53:15 Social History Question Answer Notes LastModified by Organizat ion Details LastModified Time Tobacco Smoking Status Never Smoker Beverley lopez, [facility] 03/21/2020 13:16:23 Do You Have An Advance Directive? No Information n ot available 01/07/2025 If You Are , What Was Your Level Of Alcohol Consumption Prior To ? Occasional Information not available 10/17/2020 Are You Blind Or Do You Have Difficulty Seeing? No [email or web address] Information n ot available 03/27/2021 What Is Your Level Of Caffeine Consumption? Occasional [email or web address] Information not available 10/17/2020 In The 14 Days Before Symptom Onset, Have You Had Close Contact With A Laboratory-confirm ed COVID-19 While That Case Was Ill? No [email or web address] Information n ot available 03/27/2021 In The 14 Days Before Symptom Onset, Have You Had Close Contact With A Person Who Is Under Investigation For COVID-19 While That Person Was Ill? No [email or web address] Information not available 03/27/2021 Have You Been To An Area Known To Be High Risk For COVID-19? No [email or web address] Information not available 03/27/2021 Are You Deaf Or Do You Have Serious Difficulty Hearing? No [email or web address] Information not available 03/27/2021 What Type Of Diet Are You Following? REGULAR [email or web address] Information n ot available 03/27/2021 What Is The Highest Grade Or Level Of School You Have Completed Or The Highest Degree You Have Received? [id number] Information not available 01/07/2025 What Was The Date Of Your Most Recent Tobacco Screening? 02/06/2025 Information not available 02/06/2025 Have You Ever Been Counseled For Unhealthy Alcohol Use? No [email or web address] Information not available 10/17/2020 Do You Use Protection During Sex? No Information not available 01/07/2025 Do You Use Your Seat Belt Or Car Seat Routinely? Yes [email or web address] Information not available 03/27/2021 Do You Have Smoke And Carbon Monoxide Detectors In Your Home? Yes [email or web address] Information not available 03/27/2021 How Much Tobacco Do You Smoke? No [email or web address] Information not available 03/21/2020 Do You Use Sunscreen Routinely? Yes [email or web address] Information not available 03/27/2021 Has Tobacco Cessation Counseling Been Provided? No [email or web address] Information not available 10/17/2020 Have You Used IV Drugs? No Information not available 01/07/2025 Do You Have Difficulty Walking Or Climbing Stairs? No [email or web address] Information not available 02/06/2025 Sex: Unknown Functional Status Question Answer Note LastModified by Organizat ion Details LastModified Time Do you use any illicit or recreational drugs? No [email or web address] Information not available 10/17/2020 Do you or have you ever used any other forms of tobacco or nicotine? No [email or web address] Information not available 10/17/2020 What is your level of alcohol consumption? None [email or web address] Information not available 02/06/2025 Do you or have you ever used smokeless tobacco? Never used smokeless tobacco Information not available 03/21/2020 Are you able to walk independently without assistance or assistive devices? YESWOREST Information not available 03/27/2021 Are you able to care for yourself independently? Yes [email or web address] Information not available 02/06/2025 Do you have difficulty dressing, bathing, grooming, or toileting? No Information not available 02/06/2025 Do you or have you ever used e-cigarettes or vape? Never used electronic cigarettes [email or web address] Information not available 03/21/2020 What is your exercise level? Occasional [email or web address] Information not available 03/21/2020 Mental Status Question Answer Note LastModified by Organization D etails LastModified Time Do you feel stressed (tense, restless, nervous, or anxious, or unable to sleep at night)? [id number] Information not available 03/27/2021 Family History Relationship Description Onset Age of this Age Resolved Age Notes LastModified by Organization Details LastModified Time Mother Disorder of thyroid gland [email or web address] Not available 03/21 13:15:49 Father Diabetes mellitus [email or web address] Not available 03/21 13:16:06 Maternal Grandfather Diabetes mellitus [email or web address] Not available 03/21 13:16:06 Maternal Grandmother Malignant [...] ICD10 Code Diagnosis IMO Codes Diagnosis Note [id number] [facility] [address],[facility] [place] [address] 06/26/2025 14:50:38 06/26/2025 15:53:19 Gestation period, 33 weeks 11613930 Z3A.33 2882135 [id number] [facility] [address],[facility] [place] [address] 06/26/2025 15:32:15 06/26/2025 17:47:00 Hypertension AND/OR vomiting complicating childbirth AND/OR puerperium 051722524 O13.3 0389261 [id number] Lobito Salinas MD [facility] [address],[facility] [place] [address] 07/03/2025 09:24:44 07/03/2025 10:27:55 -induced hypertension 20739263 O13.3 Z3A.34 635364 [id number] [facility] [address],[place] [address] 07/03/2025 09:24:58 07/03/2025 16:17:39 Maternal obesity complicating , childbirth and the puerperium, antepartum 4323945018 07 O99.210 2253000962 rf phentermin e, ok for one more refill then must take break [id number] [facility] [address] [place] [address] 07/03/2025 09:25:15 07/03/2025 11:45:20 Gestation period, 34 weeks 06938213 Z3A.34 6663570 [id number] Lobito Salinas MD [facility] [address] [place] [address] 07/10/2025 09:26:17 07/10/2025 10:22:03 Chronic hypertension complicating AND/OR reason for care during 03260531 O10.919 O36.60X0 O99.210 Z3A.35 47785564 [id number] Medina Whitaker [facility] [address] [place] [address] 07/10/2025 09:27:40 07/10/2025 17:20:31 Maternal obesity complicating , childbirth and the puerperium, antepartum 8385786520 07 O99.210 1586756634 rf phentermin e, ok for one more refill then must take break [id number] [facility] [address] [place] [address] 07/10/2025 09:27:58 07/10/2025 12:08:57 Gestation period, 35 weeks 99969485 Z3A.35 3994477 [id number] Lobito Salinas MD [facility] [address] [place] [address] 07/17/2025 09:20:51 07/17/2025 11:18:20 -induced hypertension 12241122 O13.3 O99.213 Z3A.36 049330 [id number] MIKE OROZCO MD [facility] [address] [address] 07/17/2025 09:21:09 07/17/2025 11:18:15 Maternal obesity complicating , childbirth and the puerperium, antepartum 1821488924 07 O99.210 3225861862 [id number] Medina Whitaker CNM [facility] [address] [address] 07/17/2025 09:21:21 07/17/2025 11:41:53 Gestation period, 36 weeks 96894452 Z3A.36 3572225 Health Concerns Section Related Observation LastModified by Organization Detai ls LastModified Time None Recorded Concern Status LastModified by Organization Details LastModified Time None Recorded Payers Encounter Date Sequence Insurance Name Policy Number Policy Ventura Covered Member ID Ventura Member ID Guarantor Name 07/17/2025 1 [facility] [id number] Apolinar Rivers [id number] Whit Rivers Notes Date Note Type Note Provider Name and Address Organization Details Recorded Time 07/17/2025 text/html Generic HPI TemplateReported by Patient Medina Whitaker CNM [address], [place], [address], [facility] 07/17/2025 11:30:47 OBGyn Episode Ob Episode Information Episode Created Date Number of Fetuses Patient Bloodtype Patient rh Status Prepregnancy Weight lbs Domestic Partner Domestic Partner Phone Father Name Radiology Technologist Status 02/07/20 25 1 O Positive 291 Apolinar Rivers OPEN Fetus Data First Name Last Name Admitted to NICU Weight (g) Sex Living Outcome Pediatric Complications Fetus ID Race Codes Race Delivery Type [id number] Problems Problem Notes Problem Name Start Date End Date Resolution Snomed Code Not e Attention deficit hyperactivity disorder 02/06/2025 579167760 stopped taking medication when found out Past history of gestational hypertension 02/06/2025 200409194 2016 pregnancys tart bASA x 2 daily Obesity 02/07/2025 383624449 testing @ 34wks Headache 02/06/2025 21512820 Mixed anxiety and depressive disorder 02/06/2025 675306400 Hypertension AND/OR vomiting complicating childbirth AND/OR puerperium 06/26/2025 895591050 Alfa Calculation Initial Alfa Date Initial Exam [...] Weight in lbs Pre/Post Dialysis Refused Weight 289.871872308785 BP Diastolic BP Location Tested BP Systolic [...] Weight in lbs Pre/Post Dialysis Refused Weight 294.690982072056 BP Diastolic BP Location Tested BP Systolic [...] Type Weight in lbs Pre/Post Dialysis Refused 297.756153576896 BP Diastolic BP Location Tested BP Systolic [...] Type Weight in lbs Pre/Post Dialysis Refused 302.312368525411 BP Diastolic BP Location Tested BP Systolic [...] Weight in lbs Pre/Post Dialysis Refused Weight 305.303740397429 BP Diastolic BP Location Tested BP Systolic [...] Weight in lbs Pre/Post Dialysis Refused Weight 306.768388503924 BP Diastolic BP Location Tested BP Systolic [...] Weight in lbs Pre/Post Dialysis Refused Weight 305.498220286641 BP Diastolic BP Location Tested BP Systolic [...] Weight in lbs Pre/Post Dialysis Refused Weight 307.790641175435 BP Diastolic BP Location Tested BP Systolic [...] Type Weight in lbs Pre/Post Dialysis Refused 308.328764009737 BP Diastolic BP Location Tested BP Systolic BP Type 81 L arm 132 sitting Fetus Heart Rate Present Fetus Movement A Yes Comments Flowsheet Date 07/03/2025 Bunn Score Blood Edema Fundus Height Fundus Units Glucose Ketones Leukocytes Nitrite Labor Signs Protein Cervic Dilation Cervic Effacement Cervic Station Type Weight in lbs Pre/Post Dialysis Refused 308.593749683396 BP Diastolic BP Location Tested BP Systolic [...] Weight in lbs Pre/Post Dialysis Refused Weight 310.368589255994 BP Diastolic BP Location Tested BP Systolic BP Type 85 L arm 128 sitting Fetus Heart Rate Present Fetus Movement A Yes Comments Flowsheet Date 07/10/2025 Bunn Score Blood Edema Fundus Height Fundus Units Glucose Ketones Leukocytes Nitrite Labor Signs Protein Cervic Dilation Cervic Effacement Cervic Station Type Weight in lbs Pre/Post Dialysis Refused 310.413573480437 BP Diastolic BP Location Tested BP Systolic [...] Type Weight in lbs Pre/Post Dialysis Refused 311.849485556476 BP Diastolic BP Location Tested BP Systolic [...] Weight in lbs Pre/Post Dialysis Refused Weight 312.786502856627 BP Diastolic BP Location Tested BP Systolic BP Type 84 L arm 131 sitting Fetus Heart Rate Present Fetus Movement A Yes Comments Flowsheet Date 07/24/2025 Bunn Score Blood Edema Fundus Height Fundus Units Glucose Ketones Leukocytes Nitrite Labor Signs Protein Cervic Dilation Cervic Effacement Cervic Station 1cm 50% -2 Type Weight in lbs Pre/Post Dialysis Refused Weight 312.107026274231 BP Diastolic BP Location Tested BP Systolic [...]
--- OUTSIDE RECORDS SUMMARY | 2025-07-26 05:58 | XMS_ITS | Continuity of Care Document ---
Author Organization [facility] Address [address] [place] [address] Care Team Providers Care Loading Dock Hand Name Role Phone HA MORTON Primary Care Provider Assessment Encounter Date Assessment Date Assessment LastModified by Organization Details LastModified Time 05/29/2025 05/29/2025 Patient is _29__weeks . Discussed plan. Not available 05/29/2025 09:41:23 Plan of Treatment Reminders Order Date Submit [...] Not Available [facility] [address], [place], [address], 02/14/2025 01:55:32 02/15/20 25 02/14/2025 [UNIT Y] ANEUP LOIDY NIPT 22Q11.2 microdeletio n LOW RISK <1 in 10,000 normal Not Available [facility] [address], [place], [address], 02/14/2025 01:55:32 02/15/20 25 02/14/2025 [UNIT Y] ANEUP LOIDY NIPT sex chromosome aneuploidy NOT DETECT ED normal Not Available [facility] [address], [place], [address], 02/14/2025 01:55:32 02/15/20 25 02/14/2025 [UNIT Y] ANEUP LOIDY NIPT monosomy X LOW RISK <1 in 10,000 normal Not Available [facility] [address], [place], [address], 02/14/2025 01:55:32 02/15/20 25 02/14/2025 [UNIT Y] ANEUP LOIDY NIPT trisomy 13 LOW RISK <1 in 10,000 normal Not Available [facility] [address], [place], [address], 02/14/2025 01:55:32 02/15/20 25 02/14/2025 [UNIT Y] ANEUP LOIDY NIPT trisomy 18 LOW RISK <1 in 10,000 normal Not Available [facility] [address], [place], [address], 02/14/2025 01:55:32 02/15/20 25 02/14/2025 [UNIT Y] ANEUP LOIDY NIPT trisomy 21 LOW RISK <1 in 10,000 normal Not Available [facility] [address], [place], [address], 02/14/2025 01:55:32 02/15/20 25 02/14/2025 [UNIT Y] ANEUP LOIDY NIPT sex MALE normal Not Available [facility] [address], [place], [address], 02/14/2025 01:55:32 02/15/20 25 02/14/2025 [UNIT Y] ANEUP LOIDY NIPT gestation SINGLE TON normal Not Available [facility] [address], [place], [address], 02/14/2025 01:55:32 02/15/20 25 02/14/2025 [UNIT Y] ANEUP LOIDY NIPT for detailed report, see pdf See PDF normal Not Available [facility] [address], [place], [address], 02/14/2025 01:55:32 02/18/20 25 02/17/2025 [UNIT Y] OTTO Islas sickle cell disease/beta -thalassemia /hemoglobino pathies carrier screen NEGATI VE normal Not Available [facility] [address], [place], [address], 02/17/2025 10:24:39 02/18/20 25 02/17/2025 [UNIT Y] OTTO Islas alpha-thalas semia carrier screen NEGATI VE normal Not Available [facility] [address], [place], [address], 02/17/2025 10:24:39 02/18/20 25 02/17/2025 [UNIT Y] OTTO ALNGFORD Janel cystic fibrosis carrier screen NEGATI VE normal Not Available [facility] [address], [place], [address], 02/17/2025 10:24:39 02/18/20 25 02/17/2025 [UNIT Y] OTTO LANGFORD Janel spinal muscular atrophy carrier screen NEGATI VE 2 SMN1 copies , SNP not presen t normal Not Available [facility] [address], [place], [address], 02/17/2025 10:24:39 02/18/20 25 02/17/2025 [UNIT Y] OTTO LANGFORD Janel for detailed report, see pdf See PDF normal Not Available [facility] [address], [place], [address], 02/17/2025 10:24:39 02/07/20 25 02/06/2025 CBC W/DIF F WBC 12.0 10'3/ uL 3.5-10 .5 high Not Available [facility] (Lab) [address], [place], [address], 02/07/2025 13:12:55 02/07/20 25 02/06/2025 CBC W/DIF F RBC 4.52 10'6/ uL (based on docume nted legal sex) 3.80-5 .20 Not Available [facility] (Lab) [address] , [place], [address], 02/07/2025 13:12:55 02/07/20 25 02/06/2025 CBC W/DIF F HGB 12.4 g/dL (based on docume nted legal sex) 11.6-1 5.4 Not Available [facility] (Lab) [address], [place], [address], 02/07/2025 13:12:55 02/07/20 25 02/06/2025 CBC W/DIF F HCT 38.9 % (based on docume nted legal sex) 34.0-4 5.0 Not Available [facility] (Lab) [address], [place], [address], 02/07/2025 13:12:55 02/07/20 25 02/06/2025 CBC W/DIF F MCV 86.1 fL 80.0-9 9.0 Not Available [facility] (Lab) [address], [place], [address], 02/07/2025 13:12:55 02/07/20 25 02/06/2025 CBC W/DIF F MCH 27.4 pg 27.0-3 4.0 Not Available [facility] (Lab) [address], [place], [address], 02/07/2025 13:12:55 02/07/20 25 02/06/2025 CBC W/DIF F MCHC 31.9 g/dL 32.0-3 5.5 low Not Available [facility] (Lab) [address], [place], [address], 02/07/2025 13:12:55 02/07/20 25 02/06/2025 CBC W/DIF F RDW 12.9 % 11.0-1 5.0 Not Available [facility] (Lab) [address], [place], [address], 02/07/2025 13:12:55 02/07/20 25 02/06/2025 CBC W/DIF F plt 281 10'3/ uL 150-40 0 Not Available [facility] (Lab) [address], [place], [address], 02/07/2025 13:12:55 02/07/20 25 02/06/2025 CBC W/DIF F MPV 11.0 fL 8.8-12 .1 Not Available [facility] (Lab) [address], [place], [address], 02/07/2025 13:12:55 02/07/20 25 02/06/2025 CBC W/DIF F NRBC's 0.0 % 0.0 Not Available [facility] (Lab) [address], [place], [address], 02/07/2025 13:12:55 02/07/20 25 02/06/2025 CBC W/DIF F absolute NRBCs 0.0 10'3/ uL no refere nce range establ ished Not Available [facility] (Lab) [address], [place], [address], 02/07/2025 13:12:55 02/07/20 25 02/06/2025 CBC W/DIF F neutrophils 72.5 % 34.0-7 3.0 Not Available [facility] (Lab) [address], [place], [address], 02/07/2025 13:12:55 02/07/20 25 02/06/2025 CBC W/DIF F lymphocytes 20.4 % 15.0-5 0.0 Not Available [facility] (Lab) [address], [place], [address], 02/07/2025 13:12:55 02/07/20 25 02/06/2025 CBC W/DIF F monocytes 5.9 % 1.0-15 .0 Not Available [facility] (Lab) [address] [facility], [place], [address], 02/07/2025 13:12:55 02/07/20 25 02/06/2025 CBC W/DIF F eosinophils 0.6 % 0.0-8. 0 Not Available [facility] (Lab) [address] [place], [address], 02/07/2025 13:12:55 02/07/20 25 02/06/2025 CBC W/DIF F basophils 0.3 % 0.0-2. 0 Not Available [facility] (Lab) [address], [place], [address], 02/07/2025 13:12:55 02/07/20 25 02/06/2025 CBC W/DIF [...] separ ately if prese nt. Not Available [facility] (Lab) [address] [facility], [place], [address], 02/07/2025 13:12:55 02/07/20 25 02/06/2025 CBC W/DIF F absolute neutrophils 8.7 10'3/ uL 1.5-8. 0 high Not Available [facility] (Lab) [address] , [place], [address], 02/07/2025 13:12:55 02/07/20 25 02/06/2025 CBC W/DIF F absolute lymphocytes 2.4 10'3/ uL 1.0-4. 0 Not Available [facility] (Lab) [address] [facility], [place], [address], 02/07/2025 13:12:55 02/07/20 25 02/06/2025 CBC W/DIF F absolute monocytes 0.7 10'3/ uL 0.2-1. 0 Not Available [facility] (Lab) [address] [facility], [place], [address], 02/07/2025 13:12:55 02/07/20 25 02/06/2025 CBC W/DIF F absolute eosinophils 0.1 10'3/ uL 0.0-0. 6 Not Available [facility] (Lab) [address] [facility], [place], [address], 02/07/2025 13:12:55 02/07/20 25 02/06/2025 CBC W/DIF F absolute basophils 0.0 10'3/ uL 0.0-0. 3 Not Available [facility] (Lab) [address] [facility], [place], [address], 02/07/2025 13:12:55 02/07/2002/06/2025 CBC W/DIF F absolute [...] bhand book. nm.or g/gen derx Not Available [facility] (Lab) [address] [facility], [place], [address], 02/07/2025 13:12:55 02/07/2002/06/2025 HEPAT ITIS B SURFA CE ANTIG EN hepatitis B surface antigen Non-re active non-re active This assay was perfo rmed using [employer] ratio n reage nts and test kits. Value s obtai dexter with other assay metho ds or kits canno t be used inter lopez eably . Not Available [facility] (Lab) [address] [facility], [place], [address], 02/07/2025 13:12:55 02/07/2002/06/2025 HIV 1/2 ANTIG EN/AN TIBOD Y, REFLE X CONFI RMATI ON HIV antigen/anti body Nonrea ctive nonrea ctive HIV-1 antig en and HIV-1 /HIV- 2 antib odies were not detec ruy. No labor atory evide nce of HIV infec tion. Not Available [facility] (Lab) [address] [facility], [place], [address], 02/07/2025 13:12:56 02/07/2002/06/2025 HEPAT ITIS C ANTIB ANITA SCREE N, REFLE X TO CONFI RMATI ON hepatitis C antibody Non-re active non-re active Antib odies to HCV Not Detec ruy, does not exclu de the possi bilit y of expos ure to HCV. Not Available [facility] (Lab) [address] [facility], [place], [address], 02/07/2025 13:12:56 02/07/20 25 02/06/2025 RUBEL LA IGG ANTIB ANITA, QUANT rubella antibodies, IgG Reacti ve reacti ve Not Available [facility] (Lab) [address] [facility], [place], [address], 02/07/2025 13:12:56 02/07/20 25 02/06/2025 RUBEL LA IGG ANTIB ANITA, QUANT rubella antibodies, IgG quant 61.9 IU/mL >=10 Non-r eacti ve (Non- Immun e) <10 IU/mL React essie (Immu ne) > or = 10 IU/mL Not Available [facility] (Lab) [address] [facility], [place], [address], 02/07/2025 13:12:56 02/07/2002/06/2025 TYPE/ RH/SC REEN ABO/Rh type O POS Not Available [facility] (Lab) [address] [facility], [place], [address], 02/07/2025 13:12:57 02/07/2002/06/2025 TYPE/ RH/SC REEN antibody screen NEG Not Available [facility] (Lab) [address] [facility], [place], [address], 02/07/2025 13:12:57 02/07/2002/06/2025 TYPE/ RH/SC REEN exp date 2024 23:59 Not Available [facility] (Lab) [address] [facility], [place], [address], 02/07/2025 13:12:57 02/07/20 02/06/2025 RPR SCREE N, REFLE X TITER /CONF IRMAT ION RPR qualitative Nonrea ctive nonrea ctive Not Available [facility] (Lab) [address] [facility], [place], [address], 02/07/2025 13:12:57 02/07/20 25 02/06/2025 HEMOG LOBIN [...] >8.0% Actio n sugge sted Not Available [facility] (Lab) [address] [facility], [place], [address], 02/07/2025 13:12:57 02/07/2002/06/2025 CULTU RE: URINE result report SEE RESULT S BELOW Test: Cultu re: Urine Speci men Sourc e: Urine - Clean Catch Speci men Type: Urine Speci men Date: 2024 1737 Resul t Date: 2024 0700 Resul t Statu s: Final resul t Abnor mal: No Resul ting Lab: [facility] [address] [facility] [address] Tel: [phone] CULTU RE ----- ----- ----- --- Cultu re resul t (>=3 organ isms prese nt) indic ates possi ble conta minat ion. Repea t cultu re if sympt oms indic ate. Not Available [facility] (Lab) [address] [facility], [place], [address], 02/08/2025 08:03:32 02/07/20 25 02/06/2025 drug scree n, urine Amphetamines : negati ve Not Available [facility] [address], [place], [address], 02/06/2025 18:30:19 02/07/20 25 02/06/2025 drug scree n, urine Cannabinoids : negati ve Not Available [facility] [address], [place], [address], 02/06/2025 18:30:19 02/07/20 25 02/06/2025 drug scree n, urine Cocaine: negati ve Not Available [facility] [address], [place], [address], 02/06/2025 18:30:19 02/07/20 25 02/06/2025 drug scree n, urine Opiates: negati ve Not Available [facility] [address], [place], [address], 02/06/2025 18:30:19 02/07/20 25 02/06/2025 drug scree n, urine Phenocyclidi ne: negati ve Not Available [facility] [address], [place], [address], 02/06/2025 18:30:19 02/07/20 25 02/06/2025 drug scree n, urine Barbiturates : negati ve Not Available [facility] [address], [place], [address], 02/06/2025 18:30:19 02/07/20 25 02/06/2025 drug scree n, urine Benzodiazepi brayan: negati ve Not Available [facility] [address], [place], [address], 02/06/2025 18:30:19 02/07/20 25 02/06/2025 drug scree n, urine Ethanol: negati ve Not Available [facility] [address], [place], [address], 02/06/2025 18:30:19 02/07/2002/06/2025 drug scree n, urine Hallucinogen s: negati ve Not Available [facility] [address], [place], [address], 02/06/2025 18:30:19 02/07/20 25 02/06/2025 drug scree n, urine Inhalants: negati ve Not Available [facility] [address], [place], [address], 02/06/2025 18:30:19 02/07/20 25 02/06/2025 drug scree n, urine Anabolic Steroids: negati ve Not Available [facility] [address], [place], [address], 02/06/2025 18:30:19 02/07/20 25 02/06/2025 drug scree n, urine Other: negati ve Not Available [facility] [address], [place], [address], 02/06/2025 18:30:19 05/15/20 25 05/15/2025 HEMOG LOBIN (HGB) HGB 10.9 g/dL (based on docume nted legal sex) 11.6-1 5.4 low Not Available [facility] (Lab) [address] [place], [address], 05/16/2025 09:55:38 05/15/20 25 05/15/2025 HEMAT OCRIT (HCT) HCT 35.7 % (based on docume nted legal sex) 34.0-4 5.0 Not Available [facility] (Lab) [address] , [place], [address], 05/16/2025 09:55:39 05/15/20 25 05/15/2025 CBC W/DIF F WBC 14.6 10'3/ uL 3.5-10 .5 high Not Available [facility] (Lab) [address], [place], [address], 05/16/2025 09:55:39 05/15/2005/15/2025 CBC W/DIF F RBC 4.01 10'6/ uL (based on docume nted legal sex) 3.80-5 .20 Not Available [facility] (Lab) [address], [place], [address], 05/16/2025 09:55:39 05/15/2005/15/2025 CBC W/DIF F HGB 10.9 g/dL (based on docume nted legal sex) 11.6-1 5.4 low Not Available [facility] (Lab) [address], [place], [address], 05/16/2025 09:55:39 05/15/2005/15/2025 CBC W/DIF F HCT 35.7 % (based on docume nted legal sex) 34.0-4 5.0 Not Available [facility] (Lab) [address], [place], [address], 05/16/2025 09:55:39 05/15/2005/15/2025 CBC W/DIF F MCV 89.0 fL 80.0-9 9.0 Not Available [facility] (Lab) [address], [place], [address], 05/16/2025 09:55:39 05/15/2005/15/2025 CBC W/DIF F MCH 27.2 pg 27.0-3 4.0 Not Available [facility] (Lab) [address], [place], [address], 05/16/2025 09:55:39 05/15/2005/15/2025 CBC W/DIF F MCHC 30.5 g/dL 32.0-3 5.5 low Not Available [facility] (Lab) [address], [place], [address], 05/16/2025 09:55:39 05/15/2005/15/2025 CBC W/DIF F RDW 14.5 % 11.0-1 5.0 Not Available [facility] (Lab) [address], [place], [address], 05/16/2025 09:55:39 05/15/2005/15/2025 CBC W/DIF F plt 218 10'3/ uL 150-40 0 Not Available [facility] (Lab) [address], [place], [address], 05/16/2025 09:55:39 05/15/2005/15/2025 CBC W/DIF F MPV 11.1 fL 8.8-12 .1 Not Available [facility] (Lab) [address], [place], [address], 05/16/2025 09:55:39 05/15/2005/15/2025 CBC W/DIF F NRBC's 0.0 % 0.0 Not Available [facility] (Lab) [address], [place], [address], 05/16/2025 09:55:39 05/15/2005/15/2025 CBC W/DIF F absolute NRBCs 0.0 10'3/ uL no refere nce range establ ished Not Available [facility] (Lab) [address], [place], [address], 05/16/2025 09:55:39 05/15/2005/15/2025 CBC W/DIF F neutrophils 78.7 % 34.0-7 3.0 high Not Available [facility] (Lab) [address], [place], [address], 05/16/2025 09:55:39 05/15/2005/15/2025 CBC W/DIF F lymphocytes 15.0 % 15.0-5 0.0 Not Available [facility] (Lab) [address] [facility], [place], [address], 05/16/2025 09:55:39 05/15/2005/15/2025 CBC W/DIF F monocytes 4.9 % 1.0-15 .0 Not Available [facility] (Lab) [address] [facility], [place], [address], 05/16/2025 09:55:39 05/15/2005/15/2025 CBC W/DIF F eosinophils 0.6 % 0.0-8. 0 Not Available [facility] (Lab) [address] [facility], [place], [address], 05/16/2025 09:55:39 05/15/2005/15/2025 CBC W/DIF F basophils 0.3 % 0.0-2. 0 Not Available [facility] (Lab) [address] [facility], [place], [address], 05/16/2025 09:55:39 05/15/2005/15/2025 CBC W/DIF F immature granulocytes 0.5 % no define d refere nce range Immat ure Granu locyt es (IG) repre sents autom ated enume ratio n of Metam yeloc ytes, Myelo cytes and Promy elocy shlomo when IG is < 5%. Blast s are not inclu ded in IG and repor ruy separ ately if prese nt. Not Available [facility] (Lab) [address] [facility], [place], [address], 05/16/2025 09:55:39 05/15/2005/15/2025 CBC W/DIF F absolute neutrophils 11.4 10'3/ uL 1.5-8. 0 high Not Available [facility] (Lab) [address] [facility], [place], [address], 05/16/2025 09:55:39 05/15/2005/15/2025 CBC W/DIF F absolute lymphocytes 2.2 10'3/ uL 1.0-4. 0 Not Available [facility] (Lab) [address] [facility], [place], [address], 05/16/2025 09:55:39 05/15/2005/15/2025 CBC W/DIF F absolute monocytes 0.7 10'3/ uL 0.2-1. 0 Not Available [facility] (Lab) [address] [facility], [place], [address], 05/16/2025 09:55:39 05/15/2005/15/2025 CBC W/DIF F absolute eosinophils 0.1 10'3/ uL 0.0-0. 6 Not Available [facility] (Lab) [address] [facility], [place], [address], 05/16/2025 09:55:39 05/15/2005/15/2025 CBC W/DIF F absolute basophils 0.1 10'3/ uL 0.0-0. 3 Not Available [facility] (Lab) [address] [facility], [place], [address], 05/16/2025 09:55:39 05/15/2005/15/2025 CBC W/DIF F absolute [...] hyman book. nm.or g/gen derx Not Available [facility] (Lab) [address] , [place], [address], 05/16/2025 09:55:39 05/15/2005/15/2025 GTT - GESTA KHANH Islas, ACOG OB glucose, 1 hour screen 115 mg/dL 70-135 Not Available [facility] (Lab) [address] [facility], [place], [address], 05/16/2025 09:55:40 05/15/20 25 05/15/2025 URIC ACID uric acid 4.1 mg/dL 2.3-6. 6 Not Available [facility] (Lab) [address] [place], [address], 05/16/2025 09:55:40 05/15/20 25 05/15/2025 CMP(C OMPRE HENSI VE METAB OLIC PANEL ) sodium 138 mmol/ L 133-14 6 Not Available [facility] (Lab) [address] [facility], [place], [address], 05/16/2025 09:55:41 05/15/20 25 05/15/2025 CMP(C OMPRE HENSI VE METAB OLIC PANEL ) potassium 4.1 mmol/ L 3.5-5. 1 Not Available [facility] (Lab) [address] [facility], [place], [address], 05/16/2025 09:55:41 05/15/20 25 05/15/2025 CMP(C OMPRE HENSI VE METAB OLIC PANEL ) chloride 104 mmol/ L 98-107 Not Available [facility] (Lab) [address] [place], [address], 05/16/2025 09:55:41 05/15/20 25 05/15/2025 CMP(C OMPRE HENSI VE METAB OLIC PANEL ) carbon dioxide 24 mmol/ L 21-31 Not Available [facility] (Lab) [address] [place], [address], 05/16/2025 09:55:41 05/15/20 25 05/15/2025 CMP(C OMPRE HENSI VE METAB OLIC PANEL ) anion gap 10 mmol/ L 4-13 Not Available [facility] (Lab) [address] [place], [address], 05/16/2025 09:55:41 05/15/20 25 05/15/2025 CMP(C OMPRE HENSI VE METAB OLIC PANEL ) blood urea nitrogen 7 mg/dL 7-25 Not Available [facility] (Lab) [address] [facility], [place], [address], 05/16/2025 09:55:41 05/15/2005/15/2025 CMP(C OMPRE HENSI VE METAB OLIC PANEL ) creatinine 0.55 mg/dL 0.60-1 .30 low Not Available [facility] (Lab) [address] [facility], [place], [address], 05/16/2025 09:55:41 05/15/2005/15/2025 CMP(C OMPRE HENSI VE METAB OLIC PANEL ) egfrcr (CKD-epi 2020) >90 mL/mi n/1.7 3_m2 >=60 Not Available [facility] (Lab) [address] [facility], [place], [address], 05/16/2025 09:55:41 05/15/20 25 05/15/2025 CMP(C OMPRE HENSI VE METAB OLIC PANEL ) calcium 8.7 mg/dL 8.3-10 .5 Not Available [facility] (Lab) [address] [place], [address], 05/16/2025 09:55:41 05/15/20 25 05/15/2025 CMP(C OMPRE HENSI VE METAB OLIC PANEL ) glucose 115 mg/dL 70-100 high Not Available [facility] (Lab) [address] [place], [address], 05/16/2025 09:55:41 05/15/20 25 05/15/2025 CMP(C OMPRE HENSI VE METAB OLIC PANEL ) protein, total 5.7 g/dL 6.4-8. 3 low Not Available [facility] (Lab) [address] [facility], [place], [address], 05/16/2025 09:55:41 05/15/20 25 05/15/2025 CMP(C OMPRE HENSI VE METAB OLIC PANEL ) albumin 3.1 g/dL 3.5-5. 0 low Not Available [facility] (Lab) [address] [facility], [place], [address], 05/16/2025 09:55:41 05/15/2005/15/2025 CMP(C OMPRE HENSI VE METAB OLIC PANEL ) ALT 9 units /L 9-43 Not Available [facility] (Lab) [address] [facility], [place], [address], 05/16/2025 09:55:41 05/15/2005/15/2025 CMP(C OMPRE HENSI VE METAB OLIC PANEL ) alkaline phosphatase 114 units /L 34-104 high Not Available [facility] (Lab) [address] [facility], [place], [address], 05/16/2025 09:55:41 05/15/20 25 05/15/2025 CMP(C OMPRE HENSI VE METAB OLIC PANEL ) AST 11 units /L 13-39 low Not Available [facility] (Lab) [address] [facility], [place], [address], 05/16/2025 09:55:41 05/15/2005/15/2025 CMP(C OMPRE HENSI VE METAB OLIC PANEL ) bilirubin, total 0.3 mg/dL 0.2-1. 2 Not Available [facility] (Lab) [address] [facility], [place], [address], 05/16/2025 09:55:41 05/15/2005/15/2025 HIV 1/2 ANTIG EN/AN TIBOD Y, REFLE X CONFI RMATI ON HIV antigen/anti body Nonrea ctive nonrea ctive HIV-1 antig en and HIV-1 /HIV- 2 antib odies were not detec ruy. No labor atory evide nce of HIV infec tion. Not Available [facility] (Lab) [address], [place], [address], 05/16/2025 09:55:41 05/15/20 25 05/15/2025 PROTE IN/CR EATIN INE RATIO , URINE creatinine, urine 13.0 mg/dL R-No refer ence range estab lishe d for this assay Not Available [facility] (Lab) [address], [place], [address], 05/16/2025 09:55:42 05/15/20 25 05/15/2025 PROTE IN/CR EATIN INE RATIO , URINE protein, urine <4 mg/dL R-No refer ence range estab lishe d for this assay Not Available [facility] (Lab) [address], [place], [address], 05/16/2025 09:55:42 05/15/20 25 05/15/2025 PROTE IN/CR [...] fican t prote inuri a. Not Available [facility] (Lab) [address], [place], [address], 05/16/2025 09:55:42 05/15/20 25 05/15/2025 RPR SCREE N, REFLE X TITER /CONF IRMAT ION RPR qualitative Nonrea ctive nonrea ctive Not Available [facility] (Lab) [address], [place], [address], 05/16/2025 09:55:42 02/07/20 25 02/06/2025 US, obste tric, nucha l trans lucen cy No observ ation record ed. [email or web address] [facility] [address], [place], [address], 02/06/2025 17:26:10 02/07/20 25 02/06/2025 US, obste tric, follo w-up No observ ation record ed. Vivi [address], [place], [address], 02/07/2025 11:49:39 03/27/20 25 03/27/2025 US, obste tric, 2nd or 3rd trime ster No observ ation record ed. [email or web address] [facility] [address], [place], [address], 03/27/2025 16:50:03 03/27/20 25 03/27/2025 US, obste tric, 2nd or 3rd trime ster No observ ation record ed. [email or web address] [address], [place], [address], 04/01/2025 20:55:55 04/24/20 25 04/24/2025 US, obste tric, follo w-up No observ ation record ed. [email or web address] [address], [place], [address], 04/24/2025 18:50:20 04/24/20 25 04/24/2025 US, obste tric, follo w-up No observ ation record ed. [email or web address] [address], [place], [address], 05/02/2025 18:12:06 05/05/20 25 05/05/2025 US, obste tric, limit ed No observ ation record ed. [place] [id number], [place], [address], 05/08/2025 11:23:32 05/05/20 25 05/05/2025 US, obste tric, limit ed No observ ation record ed. [facility] [address], [place], [address], 05/08/2025 11:23:15 05/06/2005/05/2025 non-s tress test No observ ation record ed. [facility] [address], [place], [address], 05/14/2025 16:17:57 06/12/2006/12/2025 US, obste tric, follo w-up No observ ation record ed. [email or web address] [facility] [address], [place], [address], 06/12/2025 13:37:49 06/12/2006/12/2025 US, opal tric, follo w-up No observ ation record ed. [email or web address] Vivi [address], [place], [address], 06/14/2025 12:40:46 06/26/2006/26/2025 non-s tress test No observ ation record ed. [email or web address] [facility] [address], [place], [address], 06/26/2025 17:40:02 06/26/20 non-s tress test No observ ation record ed. [email or web address] [facility] [address], [place], [address], 06/26/2025 17:40:25 07/03/2007/03/2025 US, opal lemos bioph ysica l profi le + non-s tress test No observ ation record ed. [email or web address] [facility] [address], [place], [address], 07/03/2025 10:21:51 07/03/2007/03/2025 US, obste tric, bioph ysica l profi le + non-s tress test No observ ation record ed. [email or web address] Vivi [address], [place], [address], 07/03/2025 10:36:03 07/03/2007/03/2025 non-s tress test No observ ation record ed. [address], [place], [address], 07/03/2025 17:34:00 07/03/20 non-s tress test No observ ation record ed. [address], [place], [address], 07/03/2025 16:02:31 07/10/2007/10/2025 US, obste tric, follo w-up No observ ation record ed. [email or web address] Vivi [address], [place], [address], 07/10/2025 11:53:53 07/10/2007/10/2025 US, obste tric, follo w-up No observ ation record ed. [facility] [address], [place], [address], 07/10/2025 13:24:28 07/10/2007/10/2025 US, obste tric, bioph ysica l profi le + non-s tress test No observ ation record ed. [facility] [address], [place], [address], 07/10/2025 13:24:41 07/10/2007/10/2025 non-s tress test No observ ation record ed. [address], [place], [address], 07/10/2025 16:54:42 07/10/20 non-s tress test No observ ation record ed. [email or web address] [facility] [address], [place], [address], 07/10/2025 16:55:51 07/17/2007/17/2025 non-s tress test No observ ation record ed. [email or web address] [facility] [address], [place], [address], 07/19/2025 11:50:49 07/17/20 non-s tress test No observ ation record ed. [facility] [address], [place], [address], 07/17/2025 10:56:47 07/17/2007/17/2025 US, obste tric, bioph ysica l profi le + non-s tress test No observ ation record ed. [email or web address] [facility] [address], [place], [address], 07/17/2025 13:24:17 07/17/2007/17/2025 US, obste tric, bioph ysica l profi le + non-s tress test No observ ation record ed. [email or web address] Vivi [address], [place], [address], 07/17/2025 11:37:56 07/24/2007/24/2025 US, obste tric, bioph ysica l profi le + non-s tress test No observ ation record ed. [email or web address] Vivi [address], [place], [address], 07/24/2025 11:16:54 07/24/20 25 07/24/2025 US, obste tric, bioph ysica l profi le + non-s tress test No observ ation record ed. [email or web address] [facility] [address], [place], [address], 07/24/2025 18:17:48 07/24/20 25 07/24/2025 non-s tress test No observ ation record ed. [facility] [address], [place], [address], 07/24/2025 18:19:09 07/24/20 25 non-s tress test No observ ation record ed. [address], [place], [address], 07/24/2025 16:00:08 Result Notes None recorded. Problems Name Problem SNOMED Code Status Onset Date Resolution Date Notes Provider Name and Address Organization Details Recorded Time Pregnanc y test negative 947900992 Completed 201409/02/2020 Pregnanc y examinat ion or test, negative result;R ecorded Elsewher e: No Locat ion: [facility] S ource: EHR Voting Machine Repairer elena: N Practi ce ID: 0001 Grabiel lable Time: 03:15:00 PM Beverley lopez [facility] 0 17:56:19 Obesity 286201214 Completed 201409/03/2020 Obesity, unspecif ied;Prac bronson ID: 0001 Beverley lopez [facility] 0 14:20:47 Speciali zed medical examinat ion Completed 201409/02/2020 Routine gynecolo gical examinat ion;Prac bronson ID: 0001 Beverley lopez [facility] 0 17:57:40 Screenin g for malignan t neoplasm of cervix Completed 201409/02/2020 Pap Smear;Pr actice ID: 0001 Beverley lopez [facility] 0 17:56:38 Educatio n Completed 201409/02/2020 Family planning ;Recorde d Elsewher e: No Locat ion: [facility] S ource: EHR Voting Machine Repairer elena: N Practi ce ID: 0001 Grabiel lable Time: 04:00:00 PM Beverley Sun jessica, [facility] 0 17:55:08 Female infertil ity 6043002 Completed 201410/17/2020 Infertil ity, female, of unspecif ied origin;P ractice ID: 0001 Beverley Sun jessica, [facility] 1 10:55:45 Body mass index 30+ - obesity 789728083 Completed 201510/17/2020 Body mass index (BMI) 39.0-39. 9, adult;Re corded Elsewher e: No [facility] ource: EHR Voting Machine Repairer elena: N Practi ce ID: 0001 Grabiel lable Time: 11:00:00 AM Beverley Sun jessica [facility] 1 10:55:40 Syncope and collapse 685171953 Completed 201510/17/2020 Syncope and collapse ;Recorde d Elsewher e: No Locat ion: [facility] S ource: EHR Voting Machine Repairer elena: N Practi ce ID: 0001 Grabiel lable Time: 10:30:00 AM Beverley Sun jessica [facility] 1 10:56:12 Gestatio n less than 9 weeks 864455196 Completed 201509/02/2020 Less than 8 weeks gestatio n of pregnanc y;Practi ce ID: 0001 Beverley Sun jessica, [facility] 0 17:55:27 Pregnanc y, childbir th and puerperi um finding Completed 201510/17/2020 Encntr for suprvsn of normal first preg, first trimeste r;Practi ce ID: 0001 Beverley lopez, [facility] 1 10:55:59 Gestatio n period, 12 weeks 96984892 Completed 201509/02/2020 12 weeks gestatio n of pregnanc y;Practi ce ID: 0001 Beverley lopez, [facility] 0 17:55:30 Pregnanc y, childbir th and puerperi um finding Completed 201509/02/2020 Encntr for suprvsn of normal first preg, second trimeste r;Practi ce ID: 0001 Beverley lopez, [facility] 0 17:56:27 Gestatio n period, 32 weeks 7923536 Completed 201509/02/2020 32 weeks gestatio n of pregnanc y;Practi ce ID: 0001 Beverley lopez, [facility] 0 17:55:35 Pregnanc y, childbir th and puerperi um finding Completed 201509/03/2020 Encounte r for supervis ion of normal first pregnanc y, third trimeste r;Record ed Elsewher e: No Locat ion: [facility] S ource: EHR Voting Machine Repairer elena: N Practi ce ID: 0001 Grabiel lable Time: 05:30:00 PM Beverley lopez [facility] 0 14:20:36 Gestatio n period, 33 weeks 88331644 Completed 201509/02/2020 33 weeks gestatio n of pregnanc y;Record ed Elsewher e: No Locat ion: [facility] S ource: EHR Voting Machine Repairer elena: N Practi ce ID: 0001 Grabiel lable Time: 09:00:00 AM Beverley lopez [facility] 0 17:55:39 Normal pregnanc y in multigra gen[place] 9292243412 36591 Completed 201509/02/2020 Encounte r for suprvsn of normal pregnanc y, third trimeste r;Practi ce ID: 0001 Beverley lopez, [facility] 0 17:56:11 Gestatio n period, 34 weeks 46760789 Completed 201509/02/2020 34 weeks gestatio n of pregnanc y;Practi ce ID: 0001 Beverley lopez, [facility] 0 17:55:42 Pregnanc y-induce d hyperten tonya Completed 201503/27/2021 Gestatio nal htn w/o signific ant proteinu che, third trimeste r;Record ed Elsewher e: No Locat ion: [facility] S ource: EHR Voting Machine Repairer elena: N Practi ce ID: 0001 Grabiel lable Time: 03:00:00 PM Beverley lopez, [facility] 1 16:36:34 Gestatio n period, 36 weeks 45749838 Completed 201509/02/2020 36 weeks gestatio n of pregnanc y;Practi ce ID: 0001 Beverley lopez, [facility] 0 17:55:48 Single live from singleto n pregnanc y 423389906 Completed 201509/03/2020 Single live ;Pr actice ID: 0001 Beverley lopez, [facility] 0 14:20:54 Gestatio n period, 37 weeks 06108551 Completed 201509/02/2020 37 weeks gestatio n of pregnanc y;Practi ce ID: 0001 Beverley lopez, [facility] 0 17:55:50 Pregnanc y-induce d hyperten tonya Completed 201509/02/2020 Gestatio nal htn w/o signific ant proteinu che, unsp trimeste r;Practi ce ID: 0001 Beverley lopez, [facility] 0 17:57:29 Hyperten sive disorder 00217798 Completed 201503/27/2021 Benign hyperten tonya;Rec orded Elsewher e: No Locat ion: [facility] S ource: EHR Voting Machine Repairer elena: N Practi ce ID: 0001 Grabiel lable Time: 10:30:00 AM Beverley Corinne jessica, [facility] 5 19:18:30 Non-prot einuric hyperten tonya of pregnanc y 179076575 Completed 201510/17/2020 Gestatnl htn without signific ant protein, comp the puerp;Pr actice ID: 0001 Beverley Sun jessica, [facility] 1 10:56:02 Lochia finding Completed 201510/17/2020 Encounte r for routine postpart um follow-u p;Practi ce ID: 0001 Beverley Sun [facility], [facility] 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 0 17:56:45 Pregnanc y detectio n examinat ion Completed 201809/02/2020 Encounte r for pregnanc y test, result positive ;Practic e ID: 0001 Beverley Sun jessica [facility] 0 17:56:17 Uterine size for dates discrepa ncy Completed 201810/17/2020 Uterine size-malia e discrepa ncy, first trimeste r;Practi ce ID: 0001 Beverley Sun jessica, [facility] 1 10:56:17 Secondar y amenorrh ea 710402696 Completed 201810/17/2020 Secondar y amenorrh ea;Recor ded Elsewher e: No Locat ion: [facility] S ource: EHR Voting Machine Repairer elena: N Practi ce ID: 0001 Grabiel lable Time: 10:30:00 AM Beverley Sun jessica, [facility] 1 10:56:05 Infectio n screenin g Completed 201809/02/2020 Encounte r for screenin g for oth infec/pa rastc diseases ;Recorde d Elsewher e: No Locat ion: [facility] S ource: [facility] elena: N Practi ce ID: 0001 Grabiel lable Time: 10:30:00 AM Beverley Sun [facility], [facility] 0 17:56:03 Syphilis test finding 870379119 Completed 201809/03/2020 Encntr screen for infectio ns w sexl mode of transmis s;Record ed Elsewher e: No Locat ion: [facility] S ource: EHR Voting Machine Repairer elena: N Practi ce ID: 0001 Grabiel lable Time: 10:30:00 AM Beverley Sun jessica, [facility] 0 14:20:58 Finding of viabilit y of pregnanc y 892436743 Completed 201809/02/2020 Pregnanc y w inconclu sive viabilit y, unsp;Pra ctice ID: 0001 Beverley Sun jessica, [facility] 0 17:55:21 Finding of contents of cervix 780729479 Completed 201809/02/2020 Weeks of gestatio n of pregnanc y not specifie d;Practi ce ID: 0001 Beverley Sun jessica, [facility] 0 17:55:14 Threaten ed miscarri age 71670159 Completed 201810/17/2020 Threaten ed ;Recorde d Elsewher e: No Locat ion: [facility] S ource: EHR Voting Machine Repairer elena: N Practi ce ID: 0001 Grabiel lable Time: 12:30:00 PM Beverley lopez, [facility] 1 10:56:15 Gestatio n period, 8 weeks 24225074 Completed 201809/02/2020 8 weeks gestatio n of pregnanc y;Practi ce ID: 0001 Beverley Sun [facility], [facility] 0 17:55:55 Rubella screenin g status 196699245 Completed 201809/02/2020 Encounte r for antenata l screenin g, unspecif ied;Benitez rded Elsewher e: No [facility] ource: EHR Voting Machine Repairer elena: N Practi ce ID: 0001 Grabiel lable Time: 04:30:00 PM Beverley lopez, [facility] 0 17:56:34 Antenata l screenin g Completed 201809/02/2020 Encounte r for antenata l screenin g for nuchal transluc ency;Pra ctice ID: 0001 Beverley lopez, [facility] 0 17:57:11 Antenata l screenin g for malforma tion Completed 201809/02/2020 Encounte r for antenata l screenin g for malforma tions;Re corded Elsewher e: No Locat ion: [facility] S ource: EHR Voting Machine Repairer elena: N Practi ce ID: 0001 Grabiel lable Time: 08:15:00 AM Beverley lopez, [facility] 0 17:57:13 Gestatio n period, 29 weeks 66657520 Completed 201809/02/2020 29 weeks gestatio n of pregnanc y;Record ed Elsewher e: No Locat ion: Sally [facility] S ource: EHR Voting Machine Repairer elena: N Mathieuti ce ID: 0001 Grabiel lable Time: 03:45:00 PM Beverley lopez, [facility] 0 17:55:32 Clinical finding Completed 201810/17/2020 Tachycar rishi, unspecif ied;Benitez rded Elsewher e: No Locat ion: Sally malik [facility] S ource: EHR Voting Machine Repairer elena: N Practi ce ID: 0001 Grabiel lable Time: 11:15:00 AM Beverley Dos Santostz jessica, [facility] 1 10:55:44 Clinical finding Completed 201809/02/2020 Obesity, unspecif ied;Benitez rded Elsewher e: No [facility] S ource: EHR Voting Machine Repairer elena: N Mathieuti ce ID: 0001 Grabiel lable Time: 03:00:00 PM Beverley Sun jessica, [facility] 0 17:55:24 Finding of body mass index 656625914 Completed 201809/02/2020 Body mass index (BMI) 40.0-44. 9, adult;Re corded Elsewher e: No [facility] S ource: EHR Voting Machine Repairer elena: N Practi ce ID: 0001 Grabiel lable Time: 02:00:00 PM Beverley Dos Santostz jessica, [facility] 0 17:56:59 Gestatio n period, 35 weeks 35403265 Completed 201809/02/2020 35 weeks gestatio n of pregnanc y;Record ed Elsewher e: No Locat ion: [facility] S ource: EHR Voting Machine Repairer elena: N Practi ce ID: 0001 Grabiel lable Time: 02:00:00 PM Beverley Sun jessica, [facility] 0 17:55:44 Severe obesity complica ting pregnanc y 3029192311 9359808 Completed 201810/17/2020 Obesity complica ting pregnanc y, third trimeste r;Record ed Elsewher e: No Locat ion: [facility] S ource: EHR Voting Machine Repairer elena: N Practi ce ID: 0001 Grabiel lable Time: 03:00:00 PM Beverley lopez [facility] 1 10:56:10 Gestatio n period, 38 weeks 08744948 Completed 201809/02/2020 38 weeks gestatio n of pregnanc y;Record ed Elsewher e: No Locat ion: [facility] S ource: EHR Voting Machine Repairer elena: N Practi ce ID: 0001 Grabiel lable Time: 11:00:00 AM Beverley lopez, [facility] 0 17:55:53 Hyperten tonya in the obstetri c context Completed 201810/17/2020 Pre-exis ting essentia l htn comp pregnanc y, third trimeste r;Practi ce ID: 0001 Beverley uSn [facility], [facility] 1 10:55:52 Attentio n deficit hyperact ivity disorder 133609504 Active 2024 stopped taking medicati on when found out Beverley lopez [facility] 5 19:38:30 Mixed anxiety and depressi ve disorder 940109392 Active 2024 Beverley lopez [facility] 5 19:37:00 Hyperten sive disorder 65914296 Active 2024 Medina Whitaker CNM [address], [place], [address], [facility] 17:26:39 Headache 26307143 Active 2024 Beverley Sun [facility], [facility] 19:37:14 Pregnanc y 47438529 Active [address] [facility] 19:36:35 Mixed anxiety and depressi ve disorder 870037252 Active 2024 Beverley Dos Santosmontserrat lopez, [facility] 19:37:00 Headache 74899335 Active 2024 Beverley Sun [facility], [facility] 19:37:14 Past pregnanc y history of gestatio nal hyperten tonya 859236800 Active 2024 2016 pregnanc y start bASA x 2 daily Medina Whitaker CNM [address], [place], [address], [facility] 17:26:14 Attentio n deficit hyperact ivity disorder 688749351 Active 2024 stopped taking medicati on when found out Beverley Sun [facility] 19:38:30 Obesity 511898020 Active 2024 antenata l testing @ 34wks Sonya Batista [facility] 20:55:07 Hyperten tonya AND/OR vomiting complica ting pregnanc y childbir th AND/OR puerperi 812087552 Active 2024 Medina Whitaker CNM [address], [place], [address], [facility] 5 15:51:32 Notes:Encounter for antenata l screening of mother Recorded Elsewhere: No Location: [facility] Source: EHR Chronic: N Practice ID: 0001 Billable Time: 10:30:00 AM Encounter for screening of mother Practice ID: 0001 Encounter for screening of mother Recorded Elsewhere: No Location: [facility] Source: EHR Chronic: N Practice ID: 0001 Billable Time: 10:30:00 AM Encounter for screening of mother Practice ID: 0001 Problem Notes None recorded. Procedures Surgical History Date Name Laterality Status Provider Name and Address Organization Details Recorded Time Date of Last Pap Smear completed [facility] 02/06/2025 08:37:03 1 extraction of wisdom tooth completed [facility] 02/06/2025 19:33:27 Imaging Results [...] route cycle days 5-9 06/28 completed Prescrib camlio Elsewher e: No Locat ion: [facility] M odify By: [email or web address] z Encoun ter [...] Prescrib ed Elsewher e: No Locat ion: [facility] odify By: rocio solorzano DateTime : [...] Prescrib ed Elsewher e: No Locat ion: [facility] odify By: cmsguillermo z Hiro ter [...] Prescrib ed Elsewher e: No Locat ion: [facility] odify By: belem haley DateTime : [...] and Address Organization Details Last Updated DateTime 05/29/2025 167.64 cm 49.4 kg/m2 161554.27 g 138/85 mm[Hg] Jaqueline Maier [place] - [facility] 05/29/2025 09:32:24 Social History Question Answer Notes LastModified by Organizat ion Details LastModified Time Tobacco Smoking Status Never Smoker Beverley Sun [facility] 03/21/2020 13:16:23 Do You Have An Advance Directive? No Information n ot available 01/07/2025 If You Are , What Was Your Level Of Alcohol Consumption Prior To ? Occasional [email or web address] Information not available 10/17/2020 Are You Blind Or Do You Have Difficulty Seeing? No [email or web address] Information n ot available 03/27/2021 What Is Your Level Of Caffeine Consumption? Occasional [email or web address] Information not available 10/17/2020 In The 14 Days Before Symptom Onset, Have You Had Close Contact With A Laboratory-confirm ed COVID-19 While That Case Was Ill? No [email or web address] Information n ot available 03/27/2021 In The 14 Days Before Symptom Onset, Have You Had Close Contact With A Person Who Is Under Investigation For COVID-19 While That Person Was Ill? No [email or web address] Information not available 03/27/2021 Have You Been To An Area Known To Be High Risk For COVID-19? No Information not available 03/27/2021 Are You Deaf Or Do You Have Serious Difficulty Hearing? No [email or web address] Information not available 03/27/2021 What Type Of Diet Are You Following? REGULAR [email or web address] Information n ot available 03/27/2021 What Is The Highest Grade Or Level Of School You Have Completed Or The Highest Degree You Have Received? [id number] Information not available 01/07/2025 What Was The Date Of Your Most Recent Tobacco Screening? 02/06/2025 Information not available 02/06/2025 Have You Ever Been Counseled For Unhealthy Alcohol Use? No [email or web address] Information not available 10/17/2020 Do You Use Protection During Sex? No Information not available 01/07/2025 Do You Use Your Seat Belt Or Car Seat Routinely? Yes Information not available 03/27/2021 Do You Have Smoke And Carbon Monoxide Detectors In Your Home? Yes [email or web address] Information not available 03/27/2021 How Much Tobacco Do You Smoke? No [email or web address] Information not available 03/21/2020 Do You Use Sunscreen Routinely? Yes Information not available 03/27/2021 Has Tobacco Cessation Counseling Been Provided? No Information not available 10/17/2020 Have You Used IV Drugs? No Information not available 01/07/2025 Do You Have Difficulty Walking Or Climbing Stairs? No [email or web address] Information not available 02/06/2025 Sex: Unknown Functional Status Question Answer Note LastModified by Organizat ion Details LastModified Time Do you use any illicit or recreational drugs? No Information not available 10/17/2020 Do you or have you ever used any other forms of tobacco or nicotine? No [email or web address] Information not available 10/17/2020 What is your level of alcohol consumption? None [email or web address] Information not available 02/06/2025 Do you or have you ever used smokeless tobacco? Never used smokeless tobacco Information not available 03/21/2020 Are you able to walk independently without assistance or assistive devices? YESWOREST [email or web address] Information not available 03/27/2021 Are you able to care for yourself independently? Yes [email or web address] Information not available 02/06/2025 Do you have difficulty dressing, bathing, grooming, or toileting? No [email or web address] Information not available 02/06/2025 Do you or have you ever used e-cigarettes or vape? Never used electronic cigarettes [email or web address] Information not available 03/21/2020 What is your exercise level? Occasional [email or web address] Information not available 03/21/2020 Mental Status Question Answer Note LastModified by Organization D etails LastModified Time Do you feel stressed (tense, restless, nervous, or anxious, or unable to sleep at night)? [id number] [email or web address] Information not available 03/27/2021 Family History Relationship Description Onset Age of this Age Resolved Age Notes LastModified by Organization Details LastModified Time Mother Disorder of thyroid gland [email or web address] Not available 03/21 13:15:49 Father Diabetes mellitus [email or web address] Not available 03/21 13:16:06 Maternal Grandfather Diabetes mellitus [email or web address] Not available 03/21 13:16:06 Maternal Grandmother Malignant [...] ICD10 Code Diagnosis IMO Codes Diagnosis Note [id number] Medina Whitaker CNM [facility] [address] [address] 05/15/2025 09:49:32 05/15/2025 10:47:27 Gestation period, 27 weeks [id number] Z3A.27 [id number] Medina Whitaker CNM [facility] [address] [address] 05/29/2025 09:18:49 05/29/2025 09:51:39 Gestation period, 29 weeks 37572003 Z3A.29 [id number] Health Concerns Section Related Observation LastModified by Organization Detai ls LastModified Time None Recorded Concern Status LastModified by Organization Details LastModified Time None Recorded Payers Encounter Date Sequence Insurance Name Policy Number Policy [place] Covered Member ID [place] Member ID Guarantor Name 05/29/[address] [facility] [id number] Apolinar Rivers [id number] Whit Rivers Notes Date Note Type Note Provider Name and Address Organization Details Recorded Time 05/29/2025 text/html Generic HPI TemplateReported by Patient Medina Herber Whitaker, JENNIFER [address], [place], [address], [facility] 05/29/2025 09:43:14 OBGyn Episode Ob Episode Information Episode Created Date Number of Fetuses Patient Bloodtype Patient rh Status Prepregnancy Weight lbs Domestic Partner Domestic Partner Phone Father Name Fitness Worker Status 02/07/20 25 1 O Positive 291 Apolinar Rivers OPEN Fetus Data First Name Last Name Admitted to NICU Weight (g) Sex Living Outcome Pediatric Complications Fetus ID Race Codes Race Delivery Type [id number] Problems Problem Notes Problem Name Start Date End Date Resolution Snomed Code Not e Attention deficit hyperactivity disorder 02/06/2025 [id number] stopped taking medication when found out Past history of gestational hypertension 02/06/2025 [id number] 2016 pregnancys tart bASA x 2 daily Obesity 02/07/2025 [id number] testing @ 34wks Headache 02/06/2025 [id number] Mixed anxiety and depressive disorder 02/06/2025 [id number] Hypertension AND/OR vomiting complicating childbirth AND/OR puerperium 06/26/2025 [id number] Alfa Calculation Initial Alfa Date Initial Exam [...] Weight in lbs Pre/Post Dialysis Refused Weight 289.673043005820 BP Diastolic BP Location Tested BP Systolic [...] Weight in lbs Pre/Post Dialysis Refused Weight 294.380020369618 BP Diastolic BP Location Tested BP Systolic [...] Type Weight in lbs Pre/Post Dialysis Refused 297.671496292903 BP Diastolic BP Location Tested BP Systolic [...] Type Weight in lbs Pre/Post Dialysis Refused 302.767869950788 BP Diastolic BP Location Tested BP Systolic [...] Weight in lbs Pre/Post Dialysis Refused Weight 305.451376157456 BP Diastolic BP Location Tested BP Systolic [...] Weight in lbs Pre/Post Dialysis Refused Weight 306.992500858298 BP Diastolic BP Location Tested BP Systolic [...] Weight in lbs Pre/Post Dialysis Refused Weight 305.871401181106 BP Diastolic BP Location Tested BP Systolic [...] Weight in lbs Pre/Post Dialysis Refused Weight 307.211001750733 BP Diastolic BP Location Tested BP Systolic [...] Type Weight in lbs Pre/Post Dialysis Refused 308.680199070770 BP Diastolic BP Location Tested BP Systolic BP Type 81 L arm 132 sitting Fetus Heart Rate Present Fetus Movement A Yes Comments Flowsheet Date 07/03/2025 Bunn Score Blood Edema Fundus Height Fundus Units Glucose Ketones Leukocytes Nitrite Labor Signs Protein Cervic Dilation Cervic Effacement Cervic Station Type Weight in lbs Pre/Post Dialysis Refused 308.248961925044 BP Diastolic BP Location Tested BP Systolic [...] Weight in lbs Pre/Post Dialysis Refused Weight 310.764712294570 BP Diastolic BP Location Tested BP Systolic BP Type 85 L arm 128 sitting Fetus Heart Rate Present Fetus Movement A Yes Comments Flowsheet Date 07/10/2025 Bunn Score Blood Edema Fundus Height Fundus Units Glucose Ketones Leukocytes Nitrite Labor Signs Protein Cervic Dilation Cervic Effacement Cervic Station Type Weight in lbs Pre/Post Dialysis Refused 310.315751783160 BP Diastolic BP Location Tested BP Systolic [...] Type Weight in lbs Pre/Post Dialysis Refused 311.733592711823 BP Diastolic BP Location Tested BP Systolic [...] Weight in lbs Pre/Post Dialysis Refused Weight 312.270000665244 BP Diastolic BP Location Tested BP Systolic BP Type 84 L arm 131 sitting Fetus Heart Rate Present Fetus Movement A Yes Comments Flowsheet Date 07/24/2025 Bunn Score Blood Edema Fundus Height Fundus Units Glucose Ketones Leukocytes Nitrite Labor Signs Protein Cervic Dilation Cervic Effacement Cervic Station 1cm 50% -2 Type Weight in lbs Pre/Post Dialysis Refused Weight 312.209232401410 BP Diastolic BP Location Tested BP Systolic [...]
--- OUTSIDE RECORDS SUMMARY | 2025-07-26 05:58 | XMS_ITS | Continuity of Care Document ---
Author Organization [facility] Address [address] [place] [address] Care Team Providers Care Educational Resource Coordinator Name Role Phone HA MORTON Primary Care Provider Assessment Encounter Date Assessment Date Assessment LastModified by Organization Details LastModified Time 07/10/2025 07/10/2025 Patient is ___weeks . Discussed plan. Not available 07/10/2025 10:56:12 Plan of Treatment Reminders Order Date Submit [...] Not Available [facility] [address], [place], [address], 02/14/2025 01:55:32 02/15/20 25 02/14/2025 [UNIT Y] ANEUP LOIDY NIPT 22Q11.2 microdeletio n LOW RISK <1 in 10,000 normal Not Available [facility] [address], [place], [address], 02/14/2025 01:55:32 02/15/20 25 02/14/2025 [UNIT Y] ANEUP LOIDY NIPT sex chromosome aneuploidy NOT DETECT ED normal Not Available [facility] [address], [place], [address], 02/14/2025 01:55:32 02/15/20 25 02/14/2025 [UNIT Y] ANEUP LOIDY NIPT monosomy X LOW RISK <1 in 10,000 normal Not Available [facility] [address], [place], [address], 02/14/2025 01:55:32 02/15/20 25 02/14/2025 [UNIT Y] ANEUP LOIDY NIPT trisomy 13 LOW RISK <1 in 10,000 normal Not Available [facility] [address], [place], [address], 02/14/2025 01:55:32 02/15/20 25 02/14/2025 [UNIT Y] ANEUP LOIDY NIPT trisomy 18 LOW RISK <1 in 10,000 normal Not Available [facility] [address], [place], [address], 02/14/2025 01:55:32 02/15/20 25 02/14/2025 [UNIT Y] ANEUP LOIDY NIPT trisomy 21 LOW RISK <1 in 10,000 normal Not Available [facility] [address], [place], [address], 02/14/2025 01:55:32 02/15/20 25 02/14/2025 [UNIT Y] ANEUP LOIDY NIPT sex MALE normal Not Available [facility] [address], [place], [address], 02/14/2025 01:55:32 02/15/20 25 02/14/2025 [UNIT Y] ANEUP LOIDY NIPT gestation SINGLE TON normal Not Available [facility] [address], [place], [address], 02/14/2025 01:55:32 02/15/20 25 02/14/2025 [UNIT Y] ANEUP LOIDY NIPT for detailed report, see pdf See PDF normal Not Available [facility] [address], [place], [address], 02/14/2025 01:55:32 02/18/20 25 02/17/2025 [UNIT Y] OTTO Islas sickle cell disease/beta -thalassemia /hemoglobino pathies carrier screen NEGATI VE normal Not Available [facility] [address], [place], [address], 02/17/2025 10:24:39 02/18/20 25 02/17/2025 [UNIT Y] OTTO Islas alpha-thalas semia carrier screen NEGATI VE normal Not Available [facility] [address], [place], [address], 02/17/2025 10:24:39 02/18/20 25 02/17/2025 [UNIT Y] OTTO KNIGHTTracie Islas cystic fibrosis carrier screen NEGATI VE normal Not Available [facility] [address], [place], [address], 02/17/2025 10:24:39 02/18/20 25 02/17/2025 [UNIT Y] OTTO PATEL PRIMITIVO Islas spinal muscular atrophy carrier screen NEGATI VE 2 SMN1 copies , SNP not presen t normal Not Available [facility] [address], [place], [address], 02/17/2025 10:24:39 02/18/20 25 02/17/2025 [UNIT Y] OTTO PATEL PRIMITIVO Islas for detailed report, see pdf See PDF normal Not Available [facility] [address], [place], [address], 02/17/2025 10:24:39 02/07/20 25 02/06/2025 CBC W/DIF F WBC 12.0 10'3/ uL 3.5-10 .5 high Not Available [facility] (Lab) [address] , [place], [address], 02/07/2025 13:12:55 02/07/20 25 02/06/2025 CBC W/DIF F RBC 4.52 10'6/ uL (based on docume nted legal sex) 3.80-5 .20 Not Available [facility] (Lab) [address] , [place], [address], 02/07/2025 13:12:55 02/07/20 25 02/06/2025 CBC W/DIF F HGB 12.4 g/dL (based on docume nted legal sex) 11.6-1 5.4 Not Available [facility] (Lab) [address] , [place], [address], 02/07/2025 13:12:55 02/07/20 25 02/06/2025 CBC W/DIF F HCT 38.9 % (based on docume nted legal sex) 34.0-4 5.0 Not Available [facility] (Lab) [address], [place], [address], 02/07/2025 13:12:55 02/07/20 25 02/06/2025 CBC W/DIF F MCV 86.1 fL 80.0-9 9.0 Not Available [facility] (Lab) [address], [place], [address], 02/07/2025 13:12:55 02/07/20 25 02/06/2025 CBC W/DIF F MCH 27.4 pg 27.0-3 4.0 Not Available [facility] (Lab) [address], [place], [address], 02/07/2025 13:12:55 02/07/20 25 02/06/2025 CBC W/DIF F MCHC 31.9 g/dL 32.0-3 5.5 low Not Available [facility] (Lab) [address], [place], [address], 02/07/2025 13:12:55 02/07/20 25 02/06/2025 CBC W/DIF F RDW 12.9 % 11.0-1 5.0 Not Available [facility] (Lab) [address], [place], [address], 02/07/2025 13:12:55 02/07/20 25 02/06/2025 CBC W/DIF F plt 281 10'3/ uL 150-40 0 Not Available [facility] (Lab) [address], [place], [address], 02/07/2025 13:12:55 02/07/20 25 02/06/2025 CBC W/DIF F MPV 11.0 fL 8.8-12 .1 Not Available [facility] (Lab) [address], [place], [address], 02/07/2025 13:12:55 02/07/20 25 02/06/2025 CBC W/DIF F NRBC's 0.0 % 0.0 Not Available [facility] (Lab) [address] [facility], [place], [address], 02/07/2025 13:12:55 02/07/20 25 02/06/2025 CBC W/DIF F absolute NRBCs 0.0 10'3/ uL no refere nce range establ ished Not Available [facility] (Lab) [address] [facility], [place], [address], 02/07/2025 13:12:55 02/07/20 25 02/06/2025 CBC W/DIF F neutrophils 72.5 % 34.0-7 3.0 Not Available [facility] (Lab) [address] [facility], [place], [address], 02/07/2025 13:12:55 02/07/20 25 02/06/2025 CBC W/DIF F lymphocytes 20.4 % 15.0-5 0.0 Not Available [facility] (Lab) [address] [facility], [place], [address], 02/07/2025 13:12:55 02/07/20 25 02/06/2025 CBC W/DIF F monocytes 5.9 % 1.0-15 .0 Not Available [facility] (Lab) [address] [facility], [place], [address], 02/07/2025 13:12:55 02/07/20 25 02/06/2025 CBC W/DIF F eosinophils 0.6 % 0.0-8. 0 Not Available [facility] (Lab) [address] [place], [address], 02/07/2025 13:12:55 02/07/20 25 02/06/2025 CBC W/DIF F basophils 0.3 % 0.0-2. 0 Not Available [facility] (Lab) [address] [facility], [place], [address], 02/07/2025 13:12:55 02/07/20 25 02/06/2025 CBC W/DIF [...] separ ately if prese nt. Not Available [facility] (Lab) [address] [facility], [place], [address], 02/07/2025 13:12:55 02/07/20 25 02/06/2025 CBC W/DIF F absolute neutrophils 8.7 10'3/ uL 1.5-8. 0 high Not Available [facility] (Lab) [address] [facility], [place], [address], 02/07/2025 13:12:55 02/07/20 25 02/06/2025 CBC W/DIF F absolute lymphocytes 2.4 10'3/ uL 1.0-4. 0 Not Available [facility] (Lab) [address] [facility], [place], [address], 02/07/2025 13:12:55 02/07/20 25 02/06/2025 CBC W/DIF F absolute monocytes 0.7 10'3/ uL 0.2-1. 0 Not Available [facility] (Lab) [address] [facility], [place], [address], 02/07/2025 13:12:55 02/07/20 25 02/06/2025 CBC W/DIF F absolute eosinophils 0.1 10'3/ uL 0.0-0. 6 Not Available [facility] (Lab) [address] [facility], [place], [address], 02/07/2025 13:12:55 02/07/20 25 02/06/2025 CBC W/DIF F absolute basophils 0.0 10'3/ uL 0.0-0. 3 Not Available [facility] (Lab) [address] [facility], [place], [address], 02/07/2025 13:12:55 02/07/2002/06/2025 CBC W/DIF F absolute [...] and book. nm.or g/gen derx Not Available [facility] (Lab) [address] [facility], [place], [address], 02/07/2025 13:12:55 02/07/2002/06/2025 HEPAT ITIS B SURFA CE ANTIG EN hepatitis B surface antigen Non-re active non-re active This assay was perfo rmed using [employer] ratio n reage nts and test kits. Value s obtai dexter with other assay metho ds or kits canno t be used inter lopez eably . Not Available [facility] (Lab) [address] [facility], [place], [address], 02/07/2025 13:12:55 02/07/2002/06/2025 HIV 1/2 ANTIG EN/AN TIBOD Y, REFLE X CONFI RMATI ON HIV antigen/anti body Nonrea ctive nonrea ctive HIV-1 antig en and HIV-1 /HIV- 2 antib odies were not detec ruy. No labor atory evide nce of HIV infec tion. Not Available [facility] (Lab) [address] [facility], [place], [address], 02/07/2025 13:12:56 02/07/2002/06/2025 HEPAT ITIS C ANTIB ANITA SCREE N, REFLE X TO CONFI RMATI ON hepatitis C antibody Non-re active non-re active Antib odies to HCV Not Detec ruy, does not exclu de the possi bilit y of expos ure to HCV. Not Available [facility] (Lab) [address] [facility], [place], [address], 02/07/2025 13:12:56 02/07/20 25 02/06/2025 RUBEL LA IGG ANTIB ANITA, QUANT rubella antibodies, IgG Reacti ve reacti ve Not Available [facility] (Lab) [address] [facility], [place], [address], 02/07/2025 13:12:56 02/07/20 25 02/06/2025 RUBEL LA IGG ANTIB ANITA, QUANT rubella antibodies, IgG quant 61.9 IU/mL >=10 Non-r eacti ve (Non- Immun e) <10 IU/mL React essie (Immu ne) > or = 10 IU/mL Not Available [facility] (Lab) [address] [facility], [place], [address], 02/07/2025 13:12:56 02/07/2002/06/2025 TYPE/ RH/SC REEN ABO/Rh type O POS Not Available [facility] (Lab) [address] [facility], [place], [address], 02/07/2025 13:12:57 02/07/2002/06/2025 TYPE/ RH/SC REEN antibody screen NEG Not Available [facility] (Lab) [address] [facility], [place], [address], 02/07/2025 13:12:57 02/07/2002/06/2025 TYPE/ RH/SC REEN exp date 2024 23:59 Not Available [facility] (Lab) [address] [place], [address], 02/07/2025 13:12:57 02/07/20 25 02/06/2025 RPR SCREE N, REFLE X TITER /CONF IRMAT ION RPR qualitative Nonrea ctive nonrea ctive Not Available [facility] (Lab) [address] [facility], [place], [address], 02/07/2025 13:12:57 02/07/20 25 02/06/2025 HEMOG LOBIN [...] >8.0% Actio n sugge sted Not Available [facility] (Lab) [address] [facility], [place], [address], 02/07/2025 13:12:57 02/07/2002/06/2025 CULTU RE: URINE result report SEE RESULT S BELOW Test: Cultu re: Urine Speci men Sourc e: Urine - Clean Catch Speci men Type: Urine Speci men Date: 2024 1737 Resul t Date: 2024 0700 Resul t Statu s: Final resul t Abnor mal: No Resul ting Lab: [facility] [address] [facility] [address] Tel: [phone] CULTU RE ----- ----- ----- --- Cultu re resul t (>=3 organ isms prese nt) indic ates possi ble conta minat ion. Repea t cultu re if sympt oms indic ate. Not Available [facility] (Lab) [address] [facility], [place], [address], 02/08/2025 08:03:32 02/07/2002/06/2025 drug scree n, urine Amphetamines : negati ve Not Available [facility] [address], [place], [address], 02/06/2025 18:30:19 02/07/20 25 02/06/2025 drug scree n, urine Cannabinoids : negati ve Not Available [facility] [address], [place], [address], 02/06/2025 18:30:19 02/07/20 25 02/06/2025 drug scree n, urine Cocaine: negati ve Not Available [facility] [address], [place], [address], 02/06/2025 18:30:19 02/07/20 25 02/06/2025 drug scree n, urine Opiates: negati ve Not Available [facility] [address], [place], [address], 02/06/2025 18:30:19 02/07/20 25 02/06/2025 drug scree n, urine Phenocyclidi ne: negati ve Not Available [facility] [address], [place], [address], 02/06/2025 18:30:19 02/07/20 25 02/06/2025 drug scree n, urine Barbiturates : negati ve Not Available [facility] [address], [place], [address], 02/06/2025 18:30:19 02/07/20 25 02/06/2025 drug scree n, urine Benzodiazepi brayan: negati ve Not Available [facility] [address], [place], [address], 02/06/2025 18:30:19 02/07/20 25 02/06/2025 drug scree n, urine Ethanol: negati ve Not Available [facility] [address], [place], [address], 02/06/2025 18:30:19 02/07/2002/06/2025 drug scree n, urine Hallucinogen s: negati ve Not Available [facility] [address], [place], [address], 02/06/2025 18:30:19 02/07/20 25 02/06/2025 drug scree n, urine Inhalants: negati ve Not Available [facility] [address], [place], [address], 02/06/2025 18:30:19 02/07/20 25 02/06/2025 drug scree n, urine Anabolic Steroids: negati ve Not Available [facility] [address], [place], [address], 02/06/2025 18:30:19 02/07/20 25 02/06/2025 drug scree n, urine Other: negati ve Not Available [facility] [address], [place], [address], 02/06/2025 18:30:19 05/15/20 25 05/15/2025 HEMOG LOBIN (HGB) HGB 10.9 g/dL (based on docume nted legal sex) 11.6-1 5.4 low Not Available [facility] (Lab) [address] [place], [address], 05/16/2025 09:55:38 05/15/20 25 05/15/2025 HEMAT OCRIT (HCT) HCT 35.7 % (based on docume nted legal sex) 34.0-4 5.0 Not Available [facility] (Lab) [address] , [place], [address], 05/16/2025 09:55:39 05/15/20 25 05/15/2025 CBC W/DIF F WBC 14.6 10'3/ uL 3.5-10 .5 high Not Available [facility] (Lab) [address], [place], [address], 05/16/2025 09:55:39 05/15/2005/15/2025 CBC W/DIF F RBC 4.01 10'6/ uL (based on docume nted legal sex) 3.80-5 .20 Not Available [facility] (Lab) [address], [place], [address], 05/16/2025 09:55:39 05/15/2005/15/2025 CBC W/DIF F HGB 10.9 g/dL (based on docume nted legal sex) 11.6-1 5.4 low Not Available [facility] (Lab) [address], [place], [address], 05/16/2025 09:55:39 05/15/2005/15/2025 CBC W/DIF F HCT 35.7 % (based on docume nted legal sex) 34.0-4 5.0 Not Available [facility] (Lab) [address], [place], [address], 05/16/2025 09:55:39 05/15/2005/15/2025 CBC W/DIF F MCV 89.0 fL 80.0-9 9.0 Not Available [facility] (Lab) [address], [place], [address], 05/16/2025 09:55:39 05/15/2005/15/2025 CBC W/DIF F MCH 27.2 pg 27.0-3 4.0 Not Available [facility] (Lab) [address], [place], [address], 05/16/2025 09:55:39 05/15/2005/15/2025 CBC W/DIF F MCHC 30.5 g/dL 32.0-3 5.5 low Not Available [facility] (Lab) [address], [place], [address], 05/16/2025 09:55:39 05/15/2005/15/2025 CBC W/DIF F RDW 14.5 % 11.0-1 5.0 Not Available [facility] (Lab) [address] [facility], [place], [address], 05/16/2025 09:55:39 05/15/2005/15/2025 CBC W/DIF F plt 218 10'3/ uL 150-40 0 Not Available [facility] (Lab) [address], [place], [address], 05/16/2025 09:55:39 05/15/2005/15/2025 CBC W/DIF F MPV 11.1 fL 8.8-12 .1 Not Available [facility] (Lab) [address] [facility], [place], [address], 05/16/2025 09:55:39 05/15/2005/15/2025 CBC W/DIF F NRBC's 0.0 % 0.0 Not Available [facility] (Lab) [address] [facility], [place], [address], 05/16/2025 09:55:39 05/15/2005/15/2025 CBC W/DIF F absolute NRBCs 0.0 10'3/ uL no refere nce range establ ished Not Available [facility] (Lab) [address] [facility], [place], [address], 05/16/2025 09:55:39 05/15/2005/15/2025 CBC W/DIF F neutrophils 78.7 % 34.0-7 3.0 high Not Available [facility] (Lab) [address], [place], [address], 05/16/2025 09:55:39 05/15/2005/15/2025 CBC W/DIF F lymphocytes 15.0 % 15.0-5 0.0 Not Available [facility] (Lab) [address] [facility], [place], [address], 05/16/2025 09:55:39 05/15/2005/15/2025 CBC W/DIF F monocytes 4.9 % 1.0-15 .0 Not Available [facility] (Lab) [address] [facility], [place], [address], 05/16/2025 09:55:39 05/15/2005/15/2025 CBC W/DIF F eosinophils 0.6 % 0.0-8. 0 Not Available [facility] (Lab) [address] [facility], [place], [address], 05/16/2025 09:55:39 05/15/2005/15/2025 CBC W/DIF F basophils 0.3 % 0.0-2. 0 Not Available [facility] (Lab) [address] [facility], [place], [address], 05/16/2025 09:55:39 05/15/2005/15/2025 CBC W/DIF F immature granulocytes 0.5 % no define d refere nce range Immat ure Granu locyt es (IG) repre sents autom ated enume ratio n of Metam yeloc ytes, Myelo cytes and Promy elocy shlomo when IG is < 5%. Blast s are not inclu ded in IG and repor ruy separ ately if prese nt. Not Available [facility] (Lab) [address], [place], [address], 05/16/2025 09:55:39 05/15/2005/15/2025 CBC W/DIF F absolute neutrophils 11.4 10'3/ uL 1.5-8. 0 high Not Available [facility] (Lab) [address] [facility], [place], [address], 05/16/2025 09:55:39 05/15/2005/15/2025 CBC W/DIF F absolute lymphocytes 2.2 10'3/ uL 1.0-4. 0 Not Available [facility] (Lab) [address] [facility], [place], [address], 05/16/2025 09:55:39 05/15/2005/15/2025 CBC W/DIF F absolute monocytes 0.7 10'3/ uL 0.2-1. 0 Not Available [facility] (Lab) [address] [facility], [place], [address], 05/16/2025 09:55:39 05/15/2005/15/2025 CBC W/DIF F absolute eosinophils 0.1 10'3/ uL 0.0-0. 6 Not Available [facility] (Lab) [address] [facility], [place], [address], 05/16/2025 09:55:39 05/15/2005/15/2025 CBC W/DIF F absolute basophils 0.1 10'3/ uL 0.0-0. 3 Not Available [facility] (Lab) [address] [facility], [place], [address], 05/16/2025 09:55:39 05/15/2005/15/2025 CBC W/DIF F absolute immature granulocytes 0.1 10'3/ uL 0.00-0 .10 Refer ence range s for nonbi nary/ inter sex or unspe cifie d gende r patie nts have not been estab lishe d. Pleas e [facility] for range s estab lishe d for cisge nder patie nts and evalu ate in the clini patrice kristal xt of the indiv idual patie nt: https ://la boogie book. nm.or g/gen derx Not Available [facility] (Lab) [address], [place], [address], 05/16/2025 09:55:39 05/15/2005/15/2025 GTT - GESTA KHANH Islas, ACOG OB glucose, 1 hour screen 115 mg/dL 70-135 Not Available [facility] (Lab) [address] [facility], [place], [address], 05/16/2025 09:55:40 05/15/20 25 05/15/2025 URIC ACID uric acid 4.1 mg/dL 2.3-6. 6 Not Available [facility] (Lab) [address] [facility], [place], [address], 05/16/2025 09:55:40 05/15/20 25 05/15/2025 CMP(C OMPRE HENSI VE METAB OLIC PANEL ) sodium 138 mmol/ L 133-14 6 Not Available [facility] (Lab) [address] [facility], [place], [address], 05/16/2025 09:55:41 05/15/20 25 05/15/2025 CMP(C OMPRE HENSI VE METAB OLIC PANEL ) potassium 4.1 mmol/ L 3.5-5. 1 Not Available [facility] (Lab) [address] [facility], [place], [address], 05/16/2025 09:55:41 05/15/20 25 05/15/2025 CMP(C OMPRE HENSI VE METAB OLIC PANEL ) chloride 104 mmol/ L 98-107 Not Available [facility] (Lab) [address] [place], [address], 05/16/2025 09:55:41 05/15/20 25 05/15/2025 CMP(C OMPRE HENSI VE METAB OLIC PANEL ) carbon dioxide 24 mmol/ L 21-31 Not Available [facility] (Lab) [address] [place], [address], 05/16/2025 09:55:41 05/15/20 25 05/15/2025 CMP(C OMPRE HENSI VE METAB OLIC PANEL ) anion gap 10 mmol/ L 4-13 Not Available [facility] (Lab) [address] [place], [address], 05/16/2025 09:55:41 05/15/20 25 05/15/2025 CMP(C OMPRE HENSI VE METAB OLIC PANEL ) blood urea nitrogen 7 mg/dL 7-25 Not Available [facility] (Lab) [address] [facility], [place], [address], 05/16/2025 09:55:41 05/15/2005/15/2025 CMP(C OMPRE HENSI VE METAB OLIC PANEL ) creatinine 0.55 mg/dL 0.60-1 .30 low Not Available [facility] (Lab) [address] [facility], [place], [address], 05/16/2025 09:55:41 05/15/20 25 05/15/2025 CMP(C OMPRE HENSI VE METAB OLIC PANEL ) egfrcr (CKD-epi 2020) >90 mL/mi n/1.7 3_m2 >=60 Not Available [facility] (Lab) [address] [facility], [place], [address], 05/16/2025 09:55:41 05/15/20 25 05/15/2025 CMP(C OMPRE HENSI VE METAB OLIC PANEL ) calcium 8.7 mg/dL 8.3-10 .5 Not Available [facility] (Lab) [address] [facility], [place], [address], 05/16/2025 09:55:41 05/15/20 25 05/15/2025 CMP(C OMPRE HENSI VE METAB OLIC PANEL ) glucose 115 mg/dL 70-100 high Not Available [facility] (Lab) [address] [place], [address], 05/16/2025 09:55:41 05/15/20 25 05/15/2025 CMP(C OMPRE HENSI VE METAB OLIC PANEL ) protein, total 5.7 g/dL 6.4-8. 3 low Not Available [facility] (Lab) [address], [place], [address], 05/16/2025 09:55:41 05/15/20 25 05/15/2025 CMP(C OMPRE HENSI VE METAB OLIC PANEL ) albumin 3.1 g/dL 3.5-5. 0 low Not Available [facility] (Lab) [address], [place], [address], 05/16/2025 09:55:41 05/15/2005/15/2025 CMP(C OMPRE HENSI VE METAB OLIC PANEL ) ALT 9 units /L 9-43 Not Available [facility] (Lab) [address], [place], [address], 05/16/2025 09:55:41 05/15/2005/15/2025 CMP(C OMPRE HENSI VE METAB OLIC PANEL ) alkaline phosphatase 114 units /L 34-104 high Not Available [facility] (Lab) [address], [place], [address], 05/16/2025 09:55:41 05/15/20 25 05/15/2025 CMP(C OMPRE HENSI VE METAB OLIC PANEL ) AST 11 units /L 13-39 low Not Available [facility] (Lab) [address], [place], [address], 05/16/2025 09:55:41 05/15/2005/15/2025 CMP(C OMPRE HENSI VE METAB OLIC PANEL ) bilirubin, total 0.3 mg/dL 0.2-1. 2 Not Available [facility] (Lab) [address], [place], [address], 05/16/2025 09:55:41 05/15/2005/15/2025 HIV 1/2 ANTIG EN/AN TIBOD Y, REFLE X CONFI RMATI ON HIV antigen/anti body Nonrea ctive nonrea ctive HIV-1 antig en and HIV-1 /HIV- 2 antib odies were not detec ruy. No labor atory evide nce of HIV infec tion. Not Available [facility] (Lab) [address], [place], [address], 05/16/2025 09:55:41 05/15/20 25 05/15/2025 PROTE IN/CR EATIN INE RATIO , URINE creatinine, urine 13.0 mg/dL R-No refer ence range estab lishe d for this assay Not Available [facility] (Lab) [address], [place], [address], 05/16/2025 09:55:42 05/15/20 25 05/15/2025 PROTE IN/CR EATIN INE RATIO , URINE protein, urine <4 mg/dL R-No refer ence range estab lishe d for this assay Not Available [facility] (Lab) [address], [place], [address], 05/16/2025 09:55:42 05/15/20 25 05/15/2025 PROTE IN/CR [...] fican t prote inuri a. Not Available [facility] (Lab) [address], [place], [address], 05/16/2025 09:55:42 05/15/20 25 05/15/2025 RPR SCREE N, REFLE X TITER /CONF IRMAT ION RPR qualitative Nonrea ctive nonrea ctive Not Available [facility] (Lab) [address], [place], [address], 05/16/2025 09:55:42 06/26/20 25 06/26/2025 PROTE IN/CR EATIN INE RATIO , URINE creatinine, urine 177.6 mg/dL R-No refer ence range estab lishe d for this assay Not Available [facility] (Lab) [address], [place], [address], 06/27/2025 04:29:05 06/26/20 25 06/26/2025 PROTE IN/CR EATIN INE RATIO , URINE protein, urine 15 mg/dL R-No refer ence range estab lishe d for this assay Not Available [facility] (Lab) [address], [place], [address], 06/27/2025 04:29:05 06/26/20 25 06/26/2025 PROTE IN/CR [...] fican t prote inuri a. Not Available [facility] (Lab) [address], [place], [address], 06/27/2025 04:29:05 06/26/20 25 06/26/2025 CBC W/DIF F WBC 13.4 10'3/ uL 3.5-10 .5 high Not Available [facility] (Lab) [address], [place], [address], 06/27/2025 04:29:05 06/26/20 25 06/26/2025 CBC W/DIF F RBC 4.22 10'6/ uL (based on docume nted legal sex) 3.80-5 .20 Not Available [facility] (Lab) [address], [place], [address], 06/27/2025 04:29:05 06/26/20 25 06/26/2025 CBC W/DIF F HGB 11.9 g/dL (based on docume nted legal sex) 11.6-1 5.4 Not Available [facility] (Lab) [address], [place], [address], 06/27/2025 04:29:05 06/26/20 25 06/26/2025 CBC W/DIF F HCT 37.5 % (based on docume nted legal sex) 34.0-4 5.0 Not Available [facility] (Lab) [address], [place], [address], 06/27/2025 04:29:05 06/26/20 25 06/26/2025 CBC W/DIF F MCV 88.9 fL 80.0-9 9.0 Not Available [facility] (Lab) [address], [place], [address], 06/27/2025 04:29:05 06/26/2006/26/2025 CBC W/DIF F MCH 28.2 pg 27.0-3 4.0 Not Available [facility] (Lab) [address], [place], [address], 06/27/2025 04:29:05 06/26/20 25 06/26/2025 CBC W/DIF F MCHC 31.7 g/dL 32.0-3 5.5 low Not Available [facility] (Lab) [address], [place], [address], 06/27/2025 04:29:05 06/26/20 25 06/26/2025 CBC W/DIF F RDW 14.6 % 11.0-1 5.0 Not Available [facility] (Lab) [address], [place], [address], 06/27/2025 04:29:05 06/26/2006/26/2025 CBC W/DIF F plt 224 10'3/ uL 150-40 0 Not Available [facility] (Lab) [address], [place], [address], 06/27/2025 04:29:05 06/26/20 25 06/26/2025 CBC W/DIF F MPV 12.2 fL 8.8-12 .1 high Not Available [facility] (Lab) [address], [place], [address], 06/27/2025 04:29:05 06/26/20 25 06/26/2025 CBC W/DIF F NRBC's 0.0 % 0.0 Not Available [facility] (Lab) [address], [place], [address], 06/27/2025 04:29:05 06/26/20 25 06/26/2025 CBC W/DIF F absolute NRBCs 0.0 10'3/ uL no refere nce range establ ished Not Available [facility] (Lab) [address], [place], [address], 06/27/2025 04:29:05 06/26/20 25 06/26/2025 CBC W/DIF F neutrophils 73.2 % 34.0-7 3.0 high Not Available [facility] (Lab) [address], [place], [address], 06/27/2025 04:29:05 06/26/20 25 06/26/2025 CBC W/DIF F lymphocytes 18.3 % 15.0-5 0.0 Not Available [facility] (Lab) [address], [place], [address], 06/27/2025 04:29:05 06/26/20 25 06/26/2025 CBC W/DIF F monocytes 7.5 % 1.0-15 .0 Not Available [facility] (Lab) [address], [place], [address], 06/27/2025 04:29:05 06/26/20 25 06/26/2025 CBC W/DIF F eosinophils 0.4 % 0.0-8. 0 Not Available [facility] (Lab) [address] [place], [address], 06/27/2025 04:29:05 06/26/20 25 06/26/2025 CBC W/DIF F basophils 0.2 % 0.0-2. 0 Not Available [facility] (Lab) [address], [place], [address], 06/27/2025 04:29:05 06/26/20 25 06/26/2025 CBC W/DIF [...] separ ately if prese nt. Not Available [facility] (Lab) [address], [place], [address], 06/27/2025 04:29:05 06/26/20 25 06/26/2025 CBC W/DIF F absolute neutrophils 9.8 10'3/ uL 1.5-8. 0 high Not Available [facility] (Lab) [address], [place], [address], 06/27/2025 04:29:05 06/26/20 25 06/26/2025 CBC W/DIF F absolute lymphocytes 2.5 10'3/ uL 1.0-4. 0 Not Available [facility] (Lab) [address], [place], [address], 06/27/2025 04:29:05 06/26/20 25 06/26/2025 CBC W/DIF F absolute monocytes 1.0 10'3/ uL 0.2-1. 0 Not Available [facility] (Lab) [address] [place], [address], 06/27/2025 04:29:05 06/26/20 25 06/26/2025 CBC W/DIF F absolute eosinophils 0.1 10'3/ uL 0.0-0. 6 Not Available [facility] (Lab) [address], [place], [address], 06/27/2025 04:29:05 06/26/20 25 06/26/2025 CBC W/DIF F absolute basophils 0.0 10'3/ uL 0.0-0. 3 Not Available [facility] (Lab) [address], [place], [address], 06/27/2025 04:29:05 06/26/20 25 06/26/2025 CBC W/DIF F absolute immature granulocytes 0.1 10'3/ uL 0.00-0 .10 Refer ence range s for nonbi nary/ inter sex or unspe cifie d gende r patie nts have not been estab lishe d. [facility]as [facility] for range s estab lishe d for cisge nder patie nts and evalu ate in the clini patrice kristal xt of the indiv idual patie nt: [email or web address] :[email or web address] hyman book. nm.or g/gen derx Not Available [facility] (Lab) [address], [place], [address], 06/27/2025 04:29:05 06/26/2006/26/2025 URIC ACID uric acid 4.8 mg/dL 2.3-6. 6 Not Available [facility] (Lab) [address], [place], [address], 06/27/2025 04:29:06 06/26/20 25 06/26/2025 CMP(C OMPRE HENSI VE METAB OLIC PANEL ) sodium 138 mmol/ L 133-14 6 Not Available [facility] (Lab) [address], [place], [address], 06/27/2025 04:29:06 06/26/20 25 06/26/2025 CMP(C OMPRE HENSI VE METAB OLIC PANEL ) potassium 4.0 mmol/ L 3.5-5. 1 Not Available [facility] (Lab) [address], [place], [address], 06/27/2025 04:29:06 06/26/20 25 06/26/2025 CMP(C OMPRE HENSI VE METAB OLIC PANEL ) chloride 103 mmol/ L 98-107 Not Available [facility] (Lab) [address], [place], [address], 06/27/2025 04:29:06 06/26/20 25 06/26/2025 CMP(C OMPRE HENSI VE METAB OLIC PANEL ) carbon dioxide 26 mmol/ L 21-31 Not Available [facility] (Lab) [address], [place], [address], 06/27/2025 04:29:06 06/26/2006/26/2025 CMP(C OMPRE HENSI VE METAB OLIC PANEL ) anion gap 9 mmol/ L 4-13 Not Available [facility] (Lab) [address], [place], [address], 06/27/2025 04:29:06 06/26/20 25 06/26/2025 CMP(C OMPRE HENSI VE METAB OLIC PANEL ) blood urea nitrogen 7 mg/dL 7-25 Not Available [facility] (Lab) [address], [place], [address], 06/27/2025 04:29:06 06/26/20 25 06/26/2025 CMP(C OMPRE HENSI VE METAB OLIC PANEL ) creatinine 0.66 mg/dL 0.60-1 .30 Not Available [facility] (Lab) [address], [place], [address], 06/27/2025 04:29:06 06/26/2006/26/2025 CMP(C OMPRE HENSI VE METAB OLIC PANEL ) egfrcr (CKD-epi 2020) >90 mL/mi n/1.7 3_m2 >=60 Not Available [facility] (Lab) [address], [place], [address], 06/27/2025 04:29:06 06/26/20 25 06/26/2025 CMP(C OMPRE HENSI VE METAB OLIC PANEL ) calcium 9.0 mg/dL 8.3-10 .5 Not Available [facility] (Lab) [address], [place], [address], 06/27/2025 04:29:06 06/26/20 25 06/26/2025 CMP(C OMPRE HENSI VE METAB OLIC PANEL ) glucose 74 mg/dL 70-100 Not Available [facility] (Lab) [address], [place], [address], 06/27/2025 04:29:06 06/26/20 25 06/26/2025 CMP(C OMPRE HENSI VE METAB OLIC PANEL ) protein, total 6.1 g/dL 6.4-8. 3 low Not Available [facility] (Lab) [address] [place], [address], 06/27/2025 04:29:06 06/26/20 25 06/26/2025 CMP(C OMPRE HENSI VE METAB OLIC PANEL ) albumin 3.3 g/dL 3.5-5. 0 low Not Available [facility] (Lab) [address] [place], [address], 06/27/2025 04:29:06 06/26/20 25 06/26/2025 CMP(C OMPRE HENSI VE METAB OLIC PANEL ) ALT 36 units /L 9-43 Not Available [facility] (Lab) [address] [place], [address], 06/27/2025 04:29:06 06/26/20 25 06/26/2025 CMP(C OMPRE HENSI VE METAB OLIC PANEL ) alkaline phosphatase 131 units /L 34-104 high Not Available [facility] (Lab) [address] [place], [address], 06/27/2025 04:29:06 06/26/20 25 06/26/2025 CMP(C OMPRE HENSI VE METAB OLIC PANEL ) AST 20 units /L 13-39 Not Available [facility] (Lab) [address], [place], [address], 06/27/2025 04:29:06 06/26/20 25 06/26/2025 CMP(C OMPRE HENSI VE METAB OLIC PANEL ) bilirubin, total 0.3 mg/dL 0.2-1. 2 Not Available [facility] (Lab) [address], [place], [address], 06/27/2025 04:29:06 07/10/20 25 07/10/2025 CULTU RE: [...] Resul ting Lab: [facility] [address] [facility] [address] Tel: CULTU RE ----- ----- ----- --- No Group B strep isola ruy at 2 days (bailee ctive broth enhan cemen t) Not Available [facility] (Lab) [address], [place], [address], 07/13/2025 15:08:33 02/07/20 25 02/06/2025 US, opal lemos, nucha l trans lucen cy No observ ation record ed. [email or web address] [place] [address], [place], [address], 02/06/2025 17:26:10 02/07/20 25 02/06/2025 US, opal lemos follo w-up No observ ation record ed. [email or web address] [address], [place], [address], 02/07/2025 11:49:39 03/27/20 25 03/27/2025 US, obste tric, 2nd or 3rd trime ster No observ ation record ed. [email or web address] [place] [address], [place], [address], 03/27/2025 16:50:03 03/27/20 25 03/27/2025 US, obste tric, 2nd or 3rd trime ster No observ ation record ed. [email or web address] [address], [place], [address], 04/01/2025 20:55:55 04/24/20 25 04/24/2025 US, obste tric, follo w-up No observ ation record ed. [email or web address] [place] [address], [place], [address], 04/24/2025 18:50:20 04/24/20 25 04/24/2025 US, obste tric, follo w-up No observ ation record ed. [email or web address] [address], [place], [address], 05/02/2025 18:12:06 05/05/20 25 05/05/2025 US, obste tric, limit ed No observ ation record ed. [address] [facility], [place], [address], 05/08/2025 11:23:32 05/05/20 25 05/05/2025 US, obste tric, limit ed No observ ation record ed. [address] [facility] [place], [address], 05/08/2025 11:23:15 05/06/20 25 05/05/2025 non-s tress test No observ ation record ed. [address], [place], [address], 05/14/2025 16:17:57 06/12/2006/12/2025 US, obste tric, follo w-up No observ ation record ed. [email or web address] [place] [address], [place], [address], 06/12/2025 13:37:49 06/12/2006/12/2025 US, obste tric, follo w-up No observ ation record ed. [email or web address] [address], [place], [address], 06/14/2025 12:40:46 06/26/2006/26/2025 non-s tress test No observ ation record ed. [email or web address] [place] [address], [place], [address], 06/26/2025 17:40:02 06/26/20 non-s tress test No observ ation record ed. [email or web address] [place] [address], [place], [address], 06/26/2025 17:40:25 07/03/20 25 07/03/2025 US, opal tric, bioph ysica l profi le + non-s tress test No observ ation record ed. [email or web address] [place] [address], [place], [address], 07/03/2025 10:21:51 07/03/2007/03/2025 US, obste tric, bioph ysica l profi le + non-s tress test No observ ation record ed. [email or web address] [address], [place], [address], 07/03/2025 10:36:03 07/03/2007/03/2025 non-s tress test No observ ation record ed. [email or web address] [place] [address], [place], [address], 07/03/2025 17:34:00 07/03/20 non-s tress test No observ ation record ed. [address], [place], [address], 07/03/2025 16:02:31 07/10/2007/10/2025 US, obste tric, follo w-up No observ ation record ed. [email or web address] [address], [place], [address], 07/10/2025 11:53:53 07/10/2007/10/2025 US, obste tric, follo w-up No observ ation record ed. [facility] [address], [place], [address], 07/10/2025 13:24:28 07/10/2007/10/2025 US, obste tric, bioph ysica l profi le + non-s tress test No observ ation record ed. [facility] [address], [place], [address], 07/10/2025 13:24:41 07/10/2007/10/2025 non-s tress test No observ ation record ed. [address], [place], [address], 07/10/2025 16:54:42 07/10/20 non-s tress test No observ ation record ed. [address], [place], [address], 07/10/2025 16:55:51 07/17/2007/17/2025 non-s tress test No observ ation record ed. [email or web address] [place] [address], [place], [address], 07/19/2025 11:50:49 07/17/20 non-s tress test No observ ation record ed. [place] [address], [place], [address], 07/17/2025 10:56:47 07/17/2007/17/2025 US, obste tric, bioph ysica l profi le + non-s tress test No observ ation record ed. [email or web address] [place] [address], [place], [address], 07/17/2025 13:24:17 07/17/2007/17/2025 US, obste tric, bioph ysica l profi le + non-s tress test No observ ation record ed. [email or web address] [address], [place], [address], 07/17/2025 11:37:56 07/24/2007/24/2025 US, obste tric, bioph ysica l profi le + non-s tress test No observ ation record ed. [email or web address] [address], [place], [address], 07/24/2025 11:16:54 07/24/2007/24/2025 US, obste tric, bioph ysica l profi le + non-s tress test No observ ation record ed. bertha [place] [address], [place], [address], 07/24/2025 18:17:48 07/24/20 25 07/24/2025 non-s tress test No observ ation record ed. [email or web address] [place] [address], [place], [address], 07/24/2025 18:19:09 07/24/20 25 non-s tress test No observ ation record ed. [email or web address] [place] [address], [place], [address], 07/24/2025 16:00:08 Result Notes None recorded. Problems Name Problem SNOMED Code Status Onset Date Resolution Date Notes Provider Name and Address Organization Details Recorded Time Pregnanc y test negative 256836002 Completed 201409/02/2020 Pregnanc y examinat ion or test, negative result;R ecorded Elsewher e: No Locat ion: [facility] S ource: [employer] elena: N Practi ce ID: 0001 Grabiel lable Time: 03:15:00 PM Beverley lopez, [facility] 0 17:56:19 Obesity [id number] Completed 201409/03/2020 Obesity, unspecif ied;Prac bronson ID: 0001 Beverley lopez, [facility] 0 14:20:47 Speciali zed medical examinat ion Completed 201409/02/2020 Routine gynecolo gical examinat ion;Prac bronson ID: 0001 Beverley lopez, [facility] 0 17:57:40 Screenin g for malignan t neoplasm of cervix Completed 201409/02/2020 Pap Smear;Pr actice ID: 0001 Beverley lopez, [facility] 0 17:56:38 Educatio n Completed 201409/02/2020 Family planning ;Recorde d Elsewher e: No Locat ion: [facility] S ource: [employer] elena: N Practi ce ID: 0001 Grabiel lable Time: 04:00:00 PM Beverley Sun [facility], [facility] 0 17:55:08 Female rosa m covington [id number] Completed 201410/17/2020 Rosa M covington, female, of unspecif ied origin;P wandytice ID: 0001 Beverley lopez [facility] 1 10:55:45 Body mass index 30+ - obesity [id number] Completed 201510/17/2020 Body mass index (BMI) 39.0-39. 9, adult;Re corded Elsewher e: No Locat ion: [facility] S ource: [employer] elena: N Practi ce ID: 0001 Grabiel lable Time: 11:00:00 AM Beverley lopez [facility] 1 10:55:40 Syncope and collapse [id number] Completed 201510/17/2020 Syncope and collapse ;Recorde d Elsewher e: No Locat ion: [facility] S ource: [employer] elena: N Practi ce ID: 0001 Grabiel lable Time: 10:30:00 AM Beverley lopez [facility] 1 10:56:12 Gestatio n less than 9 weeks [id number] Completed 201509/02/2020 Less than 8 weeks gestatio n of pregnanc y;Practi ce ID: 0001 Beverley lopez [facility] 0 17:55:27 Pregnanc y, childbir th and puerperi um finding Completed 201510/17/2020 Encntr for suprvsn of normal first preg, first trimeste r;Practi ce ID: 0001 Beverley lopze [facility] 1 10:55:59 Gestatio n period, 12 weeks [id number] Completed 201509/02/2020 12 weeks gestatio n of pregnanc y;Practi ce ID: 0001 Beverley lopez [facility] 0 17:55:30 Pregnanc y, childbir th and puerperi um finding Completed 201509/02/2020 Encntr for suprvsn of normal first preg, second trimeste r;Practi ce ID: 0001 Beverley lopez, [facility] 0 17:56:27 Gestatio n period, 32 weeks [id number] Completed 201509/02/2020 32 weeks gestatio n of pregnanc y;Practi ce ID: 0001 Beverley Dos Santostz jessica, [facility] 0 17:55:35 Pregnanc y, childbir th and puerperi um finding Completed 201509/03/2020 Encounte r for supervis ion of normal first pregnanc y, third trimeste r;Record ed Elsewher e: No Locat ion: [facility] S ource: [employer] elena: N Practi ce ID: 0001 Grabiel lable Time: 05:30:00 PM Beverley Dos Santostz jessica, [facility] 0 14:20:36 Gestatio n period, 33 weeks [id number] Completed 201509/02/2020 33 weeks gestatio n of pregnanc y;Record ed Elsewher e: No Locat ion: [facility] S ource: [employer] elena: N Practi ce ID: 0001 Grabile lable Time: 09:00:00 AM Beverley Dos Santostz jessica, [facility] 0 17:55:39 Normal pregnanc y in multigra geneva [id number] Completed 201509/02/2020 Encounte r for suprvsn of normal pregnanc y, third trimeste r;Practi ce ID: 0001 Beverley Sun jessica, [facility] 0 17:56:11 Gestatio n period, 34 weeks [id number] Completed 201509/02/2020 34 weeks gestatio n of pregnanc y;Practi ce ID: 0001 Beverley lopez, [facility] 0 17:55:42 Pregnanc y-induce d hyperten tonya Completed 201503/27/2021 Gestatio nal htn w/o signific ant proteinu che, third trimeste r;Record ed Elsewher e: No Locat ion: Sally malik [facility] S ource: [employer] elena: N Practi ce ID: 0001 Grabiel lable Time: 03:00:00 PM Beverley Corinne lopez, [facility] 1 16:36:34 Gestatio n period, 36 weeks [id number] Completed 201509/02/2020 36 weeks gestatio n of pregnanc y;Practi ce ID: 0001 Beverley Corinne lopez, [facility] 0 17:55:48 Single live from singleto n pregnanc y [id number] Completed 201509/03/2020 Single live ;Pr actice ID: 0001 Beverley Sun null, [facility] 0 14:20:54 Gestatio n period, 37 weeks [id number] Completed 201509/02/2020 37 weeks gestatio n of pregnanc y;Practi ce ID: 0001 Beverley Sun null, [facility] 0 17:55:50 Pregnanc y-induce d hyperten tonya Completed 201509/02/2020 Gestatio nal htn w/o signific ant proteinu che, unsp trimeste r;Practi ce ID: 0001 Beverley lopez, [facility] 0 17:57:29 Hyperten sive disorder [id number] Completed 201503/27/2021 Benign hyperten tonya;Rec orded Elsewher e: No Locat ion: [facility] S ource: [employer] elena: N Practi ce ID: 0001 Grabiel lable Time: 10:30:00 AM Beverley Corinne lopez [facility] 5 19:18:30 Non-prot einuric hyperten tonya of pregnanc y [id number] Completed 201510/17/2020 Gestatnl htn without signific ant protein, comp the puerp;Pr actice ID: 0001 Beverley Corinne lopez, [facility] 1 10:56:02 Lochia finding Completed 201510/17/2020 Encounte r for routine postpart um follow-u p;Practi ce ID: 0001 Beverley Sun jessica, [facility] 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 0 17:56:45 Pregnanc y detectio n examinat ion Completed 201809/02/2020 Encounte r for pregnanc y test, result positive ;Practic e ID: 0001 Beverley lopez, [facility] 0 17:56:17 Uterine size for dates discrepa ncy Completed 201810/17/2020 Uterine size-malia e discrepa ncy, first trimeste r;Practi ce ID: 0001 Beverley lopez, [facility] 1 10:56:17 Secondar y amenorrh ea [id number] Completed 201810/17/2020 Secondar y amenorrh ea;Recor ded Elsewher e: No Locat ion: Slaly malik [facility] S ource: [employer] elena: N Practi ce ID: [id number] Grabiel lable Time: 10:30:00 AM Beverley Corinne [facility], [facility] 1 10:56:05 Infectio n screenin g Completed 201809/02/2020 Encounte r for screenin g for oth infec/pa rastc diseases ;Recorde d Elsewher e: No Locat ion: [facility] S ource: [employer] elena: N Practi ce ID: [id number] Grabiel lable Time: 10:30:00 AM Beverley Sun [facility], [facility] 0 17:56:03 Syphilis test finding [id number] Completed 201809/03/2020 Encntr screen for infectio ns w sexl mode of transmis s;Record ed Elsewher e: No Locat ion: [facility] S ource: [employer] elena: N Practi ce ID: 0001 Grabiel lable Time: 10:30:00 AM Beverley Sun [facility], [facility] 0 14:20:58 Finding of viabilit y of pregnanc y [id number] Completed 201809/02/2020 Pregnanc y w inconclu sive viabilit y, unsp;Pra ctice ID: 0001 Beverley Sun [facility], [facility] 0 17:55:21 Finding of contents of cervix [id number] Completed 201809/02/2020 Weeks of gestatio n of pregnanc y not specifie d;Practi ce ID: 0001 Beverley Sun [facility] hospital, [facility] 0 17:55:14 Threaten ed miscarri age [id number] Completed 201810/17/2020 Threaten ed ;Recorde d Elsewher e: No Locat ion: [facility] S ource: [employer] Processor elena: N Practi ce ID: 0001 Grabiel lable Time: 12:30:00 PM Beverley Sun [facility], [facility] 1 10:56:15 Gestatio n period, 8 weeks [id number] Completed 201809/02/2020 8 weeks gestatio n of pregnanc y;Practi ce ID: 0001 Beverley lopez, [facility] 0 17:55:55 Rubella screenin g status [id number] Completed 201809/02/2020 Encounte r for antenata l screenin g, unspecif ied;Benitez rded Elsewher e: No [facility]: [employer] elena: N Practi ce ID: 0001 Grabiel lable Time: 04:30:00 PM Beverley lopze, [facility] 0 17:56:34 Antenata l screenin g Completed 201809/02/2020 Encounte r for antenata l screenin g for nuchal transluc ency;Pra ctice ID: 0001 Beverley lopez, [facility] 0 17:57:11 Antenata l screenin g for malforma tion Completed 201809/02/2020 Encounte r for antenata l screenin g for malforma tions;Re corded Elsewher e: No Locat ion: [facility] S ource: [employer] elena: N Practi ce ID: 0001 Grabiel lable Time: 08:15:00 AM Beverley lopez, [facility] 0 17:57:13 Gestatio n period, 29 weeks 58126667 Completed 201809/02/2020 29 weeks gestatio n of pregnanc y;Record ed Elsewher e: No Locat ion: [facility] S ource: [employer] elena: N Practi ce ID: 0001 Grabiel lable Time: 03:45:00 PM Beverley lopez [facility] 0 17:55:32 Clinical finding Completed 201810/17/2020 Tachycar rishi, unspecif ied;Benitez rded Elsewher e: No Locat ion: [facility] mal[facility] S ource: [employer] elena: N Mathieuti ce ID: 0001 Grabiel lable Time: 11:15:00 AM Beverley lopez, [facility] 1 10:55:44 Clinical finding Completed 201809/02/2020 Obesity, unspecif ied;Benitez rded Elsewher e: No Locat ion: [facility] tracie [facility] S ource: [employer] elena: N Mathieuti ce ID: 0001 Grabiel lable Time: 03:00:00 PM Beverley Sun [facility], [facility] 0 17:55:24 Finding of body mass index 271871276 Completed 201809/02/2020 Body mass index (BMI) 40.0-44. 9, adult;Re corded Elsewher e: No Locat ion: [facility] N Mathieuti ce ID: 0001 Grabiel lable Time: 02:00:00 PM Beverley Sun jessica, [facility] 0 17:56:59 Gestatio n period, 35 weeks 76484240 Completed 201809/02/2020 35 weeks gestatio n of pregnanc y;Record ed Elsewher e: No Locat ion: [facility] malik [facility] S ource: [employer] elena: N Mathieuti ce ID: 0001 Grabiel lable Time: 02:00:00 PM Beverley lopez, [facility] 0 17:55:44 Severe obesity complica ting pregnanc y [id number] 1629429 Completed 201810/17/2020 Obesity complica ting pregnanc y, third trimeste r;Record ed Elsewher e: No Locat ion: Liviaella tracie [facility] S ource: [employer] elena: N Mathieuti ce ID: 0001 Grabiel lable Time: 03:00:00 PM Beverley lopez [facility] 10:56:10 Gestatio n period, 38 weeks 40333311 Completed 201809/02/2020 38 weeks gestatio n of pregnanc y;Record ed Elsewher e: No Locat ion: Sally malik [facility] S ource: [employer] elena: N Practi ce ID: 0001 Grabiel lable Time: 11:00:00 AM Beverley lopez [facility] 0 17:55:53 Hyperten tonya in the obstetri c context Completed 201810/17/2020 Pre-exis ting essentia l htn comp pregnanc y, third trimeste r;Practi ce ID: 0001 Beverley lopez, [facility] 10:55:52 Attentio n deficit hyperact ivity disorder 999190463 Active 2024 stopped taking medicati on when found out Beverley lopez [facility] 19:38:30 Mixed anxiety and depressi ve disorder 035033608 Active 2024 Beverley lopez [facility] 19:37:00 Hyperten sive disorder 26728770 Active 2024 Medina Whitaker, JENNIFER [address], [place], [address], [facility] 17:26:39 Headache 57995149 Active 2024 Beverley lopez, [facility] 19:37:14 Pregnanc y 20130542 Active 2024 Beverley lopez [facility] 19:36:35 Mixed anxiety and depressi ve disorder 902721222 Active 2024 Beverley lopez, [facility] 19:37:00 Headache 46366348 Active 2024 Beverley lopez [facility] 19:37:14 Past pregnanc y history of gestatio nal hyperten tonya 459390009 Active 2024 2016 pregnanc y start bASA x 2 daily Medina Whitaker CNM [address], [place], [address], [facility] 17:26:14 Attentio n deficit hyperact ivity disorder 317951292 Active 2024 stopped taking medicati on when found out Beverley lopez [facility] 19:38:30 Obesity 853282592 Active 2024 antenata l testing @ [facility] 20:55:07 Hyperten tonya AND/OR vomiting complica ting pregnanc y childbir th AND/OR puerperi um 977911751 Active 2024 Medina Whitaker CNM [address], [place], [address], [facility] 5 15:51:32 Notes:Encounter for antenata l [...] of Last Pap Smear completed Beverley Sun [facility] 02/06/2025 08:37:03 1 extraction of wisdom tooth completed Beverley Sun [facility] 02/06/2025 19:33:27 Imaging Results None recorded. [...] Prescrib ed Elsewher e: No Locat ion: [facility] odify By: geovanny Bosch ter DateTime : [...] Prescrib ed Elsewher e: No Locat ion: [facility] odify By: bnwhosito Bosch ter DateTime : [...] Prescrib camilo Fritz e: No Locat ion: [facility] M odify By: [email or web address] z [...] Fritz e: No Locat ion: Liviaella tracie [facility] M odify By: [email or web address] Encounte r DateTime [...] Address Organization Details Last Updated DateTime 07/10/2025 458363.5288 g 128/85 mm[Hg] Barbie Coronado [facility] 07/10/2025 10:56:59 Date Recorded Body height Body mass index (BMI) Body weight Systolic And Diastolic Provider Name and Address Organization Details Last Updated DateTime 07/10/2025 167.64 cm 50 kg/m2 388138.63 g 128/85 mm[Hg] Zita Westfall [facility] 07/10/2025 16:50:05 Social History Question Answer Notes LastModified by Organizat ion Details LastModified Time Tobacco Smoking Status Never Smoker Beverley Sun [facility], [facility] 03/21/2020 13:16:23 Do You Have An Advance Directive? No Information n ot available 01/07/2025 If You Are , What Was Your Level Of Alcohol Consumption Prior To ? Occasional Information not available 10/17/2020 Are You Blind Or Do You Have Difficulty Seeing? No Information n ot available 03/27/2021 What Is Your Level Of Caffeine Consumption? Occasional [email or web address] Information not available 10/17/2020 In The 14 Days Before Symptom Onset, Have You Had Close Contact With A Laboratory-confirm ed COVID-19 While That Case Was Ill? No [email or web address] Information n ot available 03/27/2021 In The 14 Days Before Symptom Onset, Have You Had Close Contact With A Person Who Is Under Investigation For COVID-19 While That Person Was Ill? No [email or web address] Information not available 03/27/2021 Have You Been To An Area Known To Be High Risk For COVID-19? No [email or web address] Information not available 03/27/2021 Are You Deaf Or Do You Have Serious Difficulty Hearing? No [email or web address] Information not available 03/27/2021 What Type Of Diet Are You Following? REGULAR [email or web address] Information n ot available 03/27/2021 What Is The Highest Grade Or Level Of School You Have Completed Or The Highest Degree You Have Received? [id number] Information not available 01/07/2025 What Was The Date Of Your Most Recent Tobacco Screening? 02/06/2025 [email or web address] Information not available 02/06/2025 Have You Ever Been Counseled For Unhealthy Alcohol Use? No [email or web address] Information not available 10/17/2020 Do You Use Protection During Sex? No Information not available 01/07/2025 Do You Use Your Seat Belt Or Car Seat Routinely? Yes [email or web address] Information not available 03/27/2021 Do You Have Smoke And Carbon Monoxide Detectors In Your Home? Yes [email or web address] Information not available 03/27/2021 How Much Tobacco Do You Smoke? No [email or web address] Information not available 03/21/2020 Do You Use Sunscreen Routinely? Yes Information not available 03/27/2021 Has Tobacco Cessation Counseling Been Provided? No [email or web address] Information not available 10/17/2020 Have You Used IV Drugs? No Information not available 01/07/2025 Do You Have Difficulty Walking Or Climbing Stairs? No [email or web address] Information not available 02/06/2025 Sex: Unknown Functional Status Question Answer Note LastModified by Organizat ion Details LastModified Time Do you use any illicit or recreational drugs? No [email or web address] Information not available 10/17/2020 Do you or have you ever used any other forms of tobacco or nicotine? No [email or web address] Information not available 10/17/2020 What is your level of alcohol consumption? None [email or web address] Information not available 02/06/2025 Do you or have you ever used smokeless tobacco? Never used smokeless tobacco [email or web address] Information not available 03/21/2020 Are you able to walk independently without assistance or assistive devices? YESWOREST [email or web address] Information not available 03/27/2021 Are you able to care for yourself independently? Yes [email or web address] Information not available 02/06/2025 Do you have difficulty dressing, bathing, grooming, or toileting? No [email or web address] Information not available 02/06/2025 Do you or have you ever used e-cigarettes or vape? Never used electronic cigarettes [email or web address] Information not available 03/21/2020 What is your exercise level? Occasional [email or web address] Information not available 03/21/2020 Mental Status Question Answer Note LastModified by Organization D etails LastModified Time Do you feel stressed (tense, restless, nervous, or anxious, or unable to sleep at night)? [id number] [email or web address] Information not available 03/27/2021 Family History Relationship Description Onset Age of this Age Resolved Age Notes LastModified by Organization Details LastModified Time Mother Disorder of thyroid gland [email or web address] Not available 03/21 13:15:49 Father Diabetes mellitus Not available 03/21 13:16:06 Maternal Grandfather Diabetes mellitus [email or web address] Not available 03/21 13:16:06 Maternal Grandmother Malignant [...] ICD10 Code Diagnosis IMO Codes Diagnosis Note [id number] Lobito Salinas MD [place] [address] [address] 06/12/2025 11:17:33 06/12/2025 12:05:04 Large for gestation age fetus 759725733 O36.60X0 Z3A.31 05873349 [id number] Medina Whitaker CNM [place] [address] [address] 06/12/2025 11:18:32 06/12/2025 14:07:15 Gestation period, 31 weeks 36497043 Z3A.31 3195269 [id number] Medina Whitaker [facility] [address],[place] [address] 06/26/2025 14:50:38 06/26/2025 15:53:19 Gestation period, 33 weeks 39106144 Z3A.33 9195673 [id number] Medina Whitaker [facility] [address],[place] [address] 1 06/26/2025 15:32:15 06/26/2025 17:47:00 Hypertension AND/OR vomiting complicating childbirth AND/OR puerperium 671855066 O13.3 6784939 [id number] Lobito Salinas MD [place] [address] 07/03/2025 09:24:44 07/03/2025 10:27:55 -induced hypertension 22749994 O13.3 Z3A.34 900916 [id number] Medina Whitaker [place] [address] [place] [address] 07/03/2025 09:24:58 07/03/2025 16:17:39 Maternal obesity complicating , childbirth and the puerperium, antepartum 2328458991 07 O99.210 1314613686 rf phentermin e, ok for one more refill then must take break [id number] Medina Whitaker [facility] [address],[place] [address] 07/03/2025 09:25:15 07/03/2025 11:45:20 Gestation period, 34 weeks 04727117 Z3A.34 6000272 [id number] Lobito Salinas MD [place] [address] [address] 07/10/2025 09:26:17 07/10/2025 10:22:03 Chronic hypertension complicating AND/OR reason for care during 51509690 O10.919 O36.60X0 O99.210 Z3A.35 72838909 [id number] Medina Whitaker CNM [place] [address] [address] 07/10/2025 09:27:40 07/10/2025 17:20:31 Maternal obesity complicating , childbirth and the puerperium, antepartum 6216727650 07 O99.210 8989208061 rf phentermin e, ok for one more refill then must take break [id number] Medina Whitaker CNM [place] [address] [address] 07/10/2025 09:27:58 07/10/2025 12:08:57 Gestation period, 35 weeks 51419130 Z3A.35 1949999 Health Concerns Section Related Observation LastModified by Organization Detai ls LastModified Time None Recorded Concern Status LastModified by Organization Details LastModified Time None Recorded Payers Encounter Date Sequence Insurance Name Policy Number Policy Ventura Covered Member ID Ventura Member ID Guarantor Name 07/10/2025 1 [facility] [id number] Apolinar Rivers [id number] Whit Rivers Notes Date Note Type Note Provider Name and Address Organization Details Recorded Time 07/10/2025 text/html Generic HPI TemplateReported by Patient Medina Whitaker CNM [address], [place], [address], [facility] 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 02/07/20 25 1 O Positive 291 Apolinar Rivers OPEN Fetus Data First Name Last Name Admitted to NICU Weight (g) Sex Living Outcome Pediatric Complications Fetus ID Race Codes Race Delivery Type [id number] Problems Problem Notes Problem Name Start Date End Date Resolution Snomed Code Not e Attention deficit hyperactivity disorder 02/06/2025 [id number] stopped taking medication when found out Past history of gestational hypertension 02/06/2025 681611439 2016 pregnancys tart bASA x 2 daily Obesity 02/07/2025 321377749 testing @ 34wks Headache 02/06/2025 74784432 Mixed anxiety and depressive disorder 02/06/2025 882247431 Hypertension AND/OR vomiting complicating childbirth AND/OR puerperium 06/26/2025 284606022 Alfa Calculation Initial Alfa Date Initial Exam [...] Weight in lbs Pre/Post Dialysis Refused Weight 289.330075449653 BP Diastolic BP Location Tested BP Systolic [...] Weight in lbs Pre/Post Dialysis Refused Weight 294.321437451039 BP Diastolic BP Location Tested BP Systolic [...] Type Weight in lbs Pre/Post Dialysis Refused 297.473226901389 BP Diastolic BP Location Tested BP Systolic [...] Type Weight in lbs Pre/Post Dialysis Refused 302.914978591105 BP Diastolic BP Location Tested BP Systolic [...] Weight in lbs Pre/Post Dialysis Refused Weight 305.709721523767 BP Diastolic BP Location Tested BP Systolic [...] Weight in lbs Pre/Post Dialysis Refused Weight 306.168228340011 BP Diastolic BP Location Tested BP Systolic [...] Weight in lbs Pre/Post Dialysis Refused Weight 305.821928018913 BP Diastolic BP Location Tested BP Systolic [...] Weight in lbs Pre/Post Dialysis Refused Weight 307.450963480903 BP Diastolic BP Location Tested BP Systolic [...] Type Weight in lbs Pre/Post Dialysis Refused 308.490033441929 BP Diastolic BP Location Tested BP Systolic BP Type 81 L arm 132 sitting Fetus Heart Rate Present Fetus Movement A Yes Comments Flowsheet Date 07/03/2025 Bunn Score Blood Edema Fundus Height Fundus Units Glucose Ketones Leukocytes Nitrite Labor Signs Protein Cervic Dilation Cervic Effacement Cervic Station Type Weight in lbs Pre/Post Dialysis Refused 308.958467825053 BP Diastolic BP Location Tested BP Systolic [...] Weight in lbs Pre/Post Dialysis Refused Weight 310.595397945634 BP Diastolic BP Location Tested BP Systolic BP Type 85 L arm 128 sitting Fetus Heart Rate Present Fetus Movement A Yes Comments Flowsheet Date 07/10/2025 Bunn Score Blood Edema Fundus Height Fundus Units Glucose Ketones Leukocytes Nitrite Labor Signs Protein Cervic Dilation Cervic Effacement Cervic Station Type Weight in lbs Pre/Post Dialysis Refused 310.796301671719 BP Diastolic BP Location Tested BP Systolic [...] Type Weight in lbs Pre/Post Dialysis Refused 311.820772331530 BP Diastolic BP Location Tested BP Systolic [...] Weight in lbs Pre/Post Dialysis Refused Weight 312.209585239009 BP Diastolic BP Location Tested BP Systolic BP Type 84 L arm 131 sitting Fetus Heart Rate Present Fetus Movement A Yes Comments Flowsheet Date 07/24/2025 Bunn Score Blood Edema Fundus Height Fundus Units Glucose Ketones Leukocytes Nitrite Labor Signs Protein Cervic Dilation Cervic Effacement Cervic Station 1cm 50% -2 Type Weight in lbs Pre/Post Dialysis Refused Weight 312.327059683056 BP Diastolic BP Location Tested BP Systolic [...]
--- OUTSIDE RECORDS SUMMARY | 2025-07-26 05:58 | XMS_ITS | Continuity of Care Document ---
Author Organization [facility] Address [address] [place] [address] Care Team Providers Care Grocery Caddy Name Role Phone HA MORTON Primary Care [...] d. Imaging non-str ess test 2024 025 [place], [address], [address], [place], [address], 07/03/2025 16:17:39 Medication Orders None recorde d. Patient TargetsNo targets recorded. Patient InstructionsNo instructions recorded. Reason for Referral None Reported. Results Created Date Observation Date Name Description Value Unit Range Abnormal Flag Note LastModifiedBy Organization Detail LastModifiedTime 02/15/2002/14/2025 [UNIT Y] ANEUP LOIDY NIPT fraction 3.9% normal Not Available [facility] [address], [place], [address], 02/14/2025 01:55:32 02/15/20 25 02/14/2025 [UNIT Y] ANEUP LOIDY NIPT 22Q11.2 microdeletio n LOW RISK <1 in 10,000 normal Not Available [facility] [address], [place], [address], 02/14/2025 01:55:32 02/15/20 25 02/14/2025 [UNIT Y] ANEUP LOIDY NIPT sex chromosome aneuploidy NOT DETECT ED normal Not Available [facility] [address], [place], [address], 02/14/2025 01:55:32 02/15/20 25 02/14/2025 [UNIT Y] ANEUP LOIDY NIPT monosomy X LOW RISK <1 in 10,000 normal Not Available [facility] [address], [place], [address], 02/14/2025 01:55:32 02/15/20 25 02/14/2025 [UNIT Y] ANEUP LOIDY NIPT trisomy 13 LOW RISK <1 in 10,000 normal Not Available [facility] [address], [place], [address], 02/14/2025 01:55:32 02/15/20 25 02/14/2025 [UNIT Y] ANEUP LOIDY NIPT trisomy 18 LOW RISK <1 in 10,000 normal Not Available [facility] [address], [place], [address], 02/14/2025 01:55:32 02/15/20 25 02/14/2025 [UNIT Y] ANEUP LOIDY NIPT trisomy 21 LOW RISK <1 in 10,000 normal Not Available [facility] [address], [place], [address], 02/14/2025 01:55:32 02/15/20 25 02/14/2025 [UNIT Y] ANEUP LOIDY NIPT sex MALE normal Not Available [facility] [address], [place], [address], 02/14/2025 01:55:32 02/15/20 25 02/14/2025 [UNIT Y] ANEUP LOIDY NIPT gestation SINGLE TON normal Not Available [facility] [address], [place], [address], 02/14/2025 01:55:32 02/15/20 25 02/14/2025 [UNIT Y] ANEUP LOIDY NIPT for detailed report, see pdf See PDF normal Not Available [facility] [address], [place], [address], 02/14/2025 01:55:32 02/18/20 25 02/17/2025 [UNIT Y] OTTO Islas sickle cell disease/beta -thalassemia /hemoglobino pathies carrier screen NEGATI VE normal Not Available [facility] [address], [place], [address], 02/17/2025 10:24:39 02/18/20 25 02/17/2025 [UNIT Y] OTTO Islas alpha-thalas semia carrier screen NEGATI VE normal Not Available [facility] [address], [place], [address], 02/17/2025 10:24:39 02/18/20 25 02/17/2025 [UNIT Y] OTTO Islas cystic fibrosis carrier screen NEGATI VE normal Not Available [facility] [address], [place], [address], 02/17/2025 10:24:39 02/18/20 25 02/17/2025 [UNIT Y] OTTO Islas spinal muscular atrophy carrier screen NEGATI VE 2 SMN1 copies , SNP not presen t normal Not Available [facility] [address], [place], [address], 02/17/2025 10:24:39 02/18/20 25 02/17/2025 [UNIT Y] OTTO LANGFORD Janel for detailed report, see pdf See PDF normal Not Available [facility] [address], [place], [address], 02/17/2025 10:24:39 02/07/20 25 02/06/2025 CBC W/DIF F WBC 12.0 10'3/ uL 3.5-10 .5 high Not Available [facility] (Lab) [address], [place], [address], 02/07/2025 13:12:55 02/07/20 25 02/06/2025 CBC W/DIF F RBC 4.52 10'6/ uL (based on docume nted legal sex) 3.80-5 .20 Not Available [facility] (Lab) [address], [place], [address], 02/07/2025 13:12:55 02/07/20 25 02/06/2025 CBC W/DIF F HGB 12.4 g/dL (based on docume nted legal sex) 11.6-1 5.4 Not Available [facility] (Lab) [address], [place], [address], 02/07/2025 13:12:55 02/07/20 25 02/06/2025 CBC W/DIF F HCT 38.9 % (based on docume nted legal sex) 34.0-4 5.0 Not Available [facility] (Lab) [address], [place], [address], 02/07/2025 13:12:55 02/07/20 25 02/06/2025 CBC W/DIF F MCV 86.1 fL 80.0-9 9.0 Not Available [facility] (Lab) [address], [place], [address], 02/07/2025 13:12:55 02/07/20 25 02/06/2025 CBC W/DIF F MCH 27.4 pg 27.0-3 4.0 Not Available [facility] (Lab) [address], [place], [address], 02/07/2025 13:12:55 02/07/20 25 02/06/2025 CBC W/DIF F MCHC 31.9 g/dL 32.0-3 5.5 low Not Available [facility] (Lab) [address], [place], [address], 02/07/2025 13:12:55 02/07/20 25 02/06/2025 CBC W/DIF F RDW 12.9 % 11.0-1 5.0 Not Available [facility] (Lab) [address], [place], [address], 02/07/2025 13:12:55 02/07/20 25 02/06/2025 CBC W/DIF F plt 281 10'3/ uL 150-40 0 Not Available [facility] (Lab) [address], [place], [address], 02/07/2025 13:12:55 02/07/20 25 02/06/2025 CBC W/DIF F MPV 11.0 fL 8.8-12 .1 Not Available [facility] (Lab) [address] [place], [address], 02/07/2025 13:12:55 02/07/20 25 02/06/2025 CBC W/DIF F NRBC's 0.0 % 0.0 Not Available [facility] (Lab) [address] [facility], [place], [address], 02/07/2025 13:12:55 02/07/20 25 02/06/2025 CBC W/DIF F absolute NRBCs 0.0 10'3/ uL no refere nce range establ ished Not Available [facility] (Lab) [address] [facility], [place], [address], 02/07/2025 13:12:55 02/07/20 25 02/06/2025 CBC W/DIF F neutrophils 72.5 % 34.0-7 3.0 Not Available [facility] (Lab) [address] [facility], [place], [address], 02/07/2025 13:12:55 02/07/20 25 02/06/2025 CBC W/DIF F lymphocytes 20.4 % 15.0-5 0.0 Not Available [facility] (Lab) [address] [facility], [place], [address], 02/07/2025 13:12:55 02/07/20 25 02/06/2025 CBC W/DIF F monocytes 5.9 % 1.0-15 .0 Not Available [facility] (Lab) [address] [facility], [place], [address], 02/07/2025 13:12:55 02/07/20 25 02/06/2025 CBC W/DIF F eosinophils 0.6 % 0.0-8. 0 Not Available [facility] (Lab) [address] [facility], [place], [address], 02/07/2025 13:12:55 02/07/20 25 02/06/2025 CBC W/DIF F basophils 0.3 % 0.0-2. 0 Not Available [facility] (Lab) [address] [facility], [place], [address], 02/07/2025 13:12:55 02/07/2002/06/2025 CBC W/DIF F immature granulocytes 0.3 % no define d refere nce range Immat ure Granu locyt es (IG) repre sents autom ated enume ratio n of Metam yeloc ytes, Myelo cytes and Promy elocy shlomo when IG is < 5%. Blast s are not inclu ded in IG and repor ruy separ ately if prese nt. Not Available [facility] (Lab) [address] [facility], [place], [address], 02/07/2025 13:12:55 02/07/20 25 02/06/2025 CBC W/DIF F absolute neutrophils 8.7 10'3/ uL 1.5-8. 0 high Not Available [facility] (Lab) [address] [facility], [place], [address], 02/07/2025 13:12:55 02/07/20 25 02/06/2025 CBC W/DIF F absolute lymphocytes 2.4 10'3/ uL 1.0-4. 0 Not Available [facility] (Lab) [address] [facility], [place], [address], 02/07/2025 13:12:55 02/07/20 25 02/06/2025 CBC W/DIF F absolute monocytes 0.7 10'3/ uL 0.2-1. 0 Not Available [facility] (Lab) [address] [facility], [place], [address], 02/07/2025 13:12:55 02/07/20 25 02/06/2025 CBC W/DIF F absolute eosinophils 0.1 10'3/ uL 0.0-0. 6 Not Available [facility] (Lab) [address] [facility], [place], [address], 02/07/2025 13:12:55 02/07/20 25 02/06/2025 CBC W/DIF F absolute basophils 0.0 10'3/ uL 0.0-0. 3 Not Available [facility] (Lab) [address], [place], [address], 02/07/2025 13:12:55 02/07/2002/06/2025 CBC W/DIF F absolute [...] hyman book. nm.or g/gen derx Not Available [facility] (Lab) [address], [place], [address], 02/07/2025 13:12:55 02/07/2002/06/2025 HEPAT ITIS B SURFA CE ANTIG EN hepatitis B surface antigen Non-re active non-re active This assay was perfo rmed using [employer] ratio n reage nts and test kits. Value s obtai dexter with other assay metho ds or kits canno t be used inter lopez eably . Not Available [facility] (Lab) [address], [place], [address], 02/07/2025 13:12:55 02/07/2002/06/2025 HIV 1/2 ANTIG EN/AN TIBOD Y, REFLE X CONFI RMATI ON HIV antigen/anti body Nonrea ctive nonrea ctive HIV-1 antig en and HIV-1 /HIV- 2 antib odies were not detec ruy. No labor atory evide nce of HIV infec tion. Not Available [facility] (Lab) [address], [place], [address], 02/07/2025 13:12:56 02/07/2002/06/2025 HEPAT ITIS C ANTIB ANITA SCREE N, REFLE X TO CONFI RMATI ON hepatitis C antibody Non-re active non-re active Antib odies to HCV Not Detec ruy, does not exclu de the possi bilit y of expos ure to HCV. Not Available [facility] (Lab) [address] [facility], [place], [address], 02/07/2025 13:12:56 02/07/20 25 02/06/2025 RUBEL LA IGG ANTIB ANITA, QUANT rubella antibodies, IgG Reacti ve reacti ve Not Available [facility] (Lab) [address] [facility], [place], [address], 02/07/2025 13:12:56 02/07/20 25 02/06/2025 RUBEL LA IGG ANTIB ANITA, QUANT rubella antibodies, IgG quant 61.9 IU/mL >=10 Non-r eacti ve (Non- Immun e) <10 IU/mL React essie (Immu ne) > or = 10 IU/mL Not Available [facility] (Lab) [address] [facility], [place], [address], 02/07/2025 13:12:56 02/07/20 25 02/06/2025 TYPE/ RH/SC REEN ABO/Rh type O POS Not Available [facility] (Lab) [address] [facility], [place], [address], 02/07/2025 13:12:57 02/07/20 25 02/06/2025 TYPE/ RH/SC REEN antibody screen NEG Not Available [facility] (Lab) [address] [facility], [place], [address], 02/07/2025 13:12:57 02/07/20 25 02/06/2025 TYPE/ RH/SC REEN exp date 2024 23:59 Not Available [facility] (Lab) [address] [facility], [place], [address], 02/07/2025 13:12:57 02/07/20 25 02/06/2025 RPR SCREE N, REFLE X TITER /CONF IRMAT ION RPR qualitative Nonrea ctive nonrea ctive Not Available [facility] (Lab) [address] [facility], [place], [address], 02/07/2025 13:12:57 02/07/20 25 02/06/2025 HEMOG LOBIN [...] >8.0% Actio n sugge sted Not Available [facility] (Lab) [address] [facility], [place], [address], 02/07/2025 13:12:57 02/07/2002/06/2025 CULTU RE: URINE result report SEE RESULT S BELOW Test: Cultu re: Urine Speci men Sourc e: Urine - Clean Catch Speci men Type: Urine Speci men Date: 2024 1737 Resul t Date: 2024 0700 Resul t Statu s: Final resul t Abnor mal: No Resul ting Lab: [facility] [address] [facility] [address] Tel: CULTU RE ----- ----- ----- --- Cultu re resul t (>=3 organ isms prese nt) indic ates possi ble conta minat ion. Repea t cultu re if sympt oms indic ate. Not Available [facility] (Lab) [address] [facility], [place], [address], 02/08/2025 08:03:32 02/07/20 25 02/06/2025 drug scree n, urine Amphetamines : negati ve Not Available [facility] [address], [place], [address], 02/06/2025 18:30:19 02/07/20 25 02/06/2025 drug scree n, urine Cannabinoids : negati ve Not Available [facility] [address], [place], [address], 02/06/2025 18:30:19 02/07/20 25 02/06/2025 drug scree n, urine Cocaine: negati ve Not Available [facility] [address], [place], [address], 02/06/2025 18:30:19 02/07/20 25 02/06/2025 drug scree n, urine Opiates: negati ve Not Available [facility] [address], [place], [address], 02/06/2025 18:30:19 02/07/20 25 02/06/2025 drug scree n, urine Phenocyclidi ne: negati ve Not Available [facility] [address], [place], [address], 02/06/2025 18:30:19 02/07/20 25 02/06/2025 drug scree n, urine Barbiturates : negati ve Not Available [facility] [address], [place], [address], 02/06/2025 18:30:19 02/07/20 25 02/06/2025 drug scree n, urine Benzodiazepi brayan: negati ve Not Available [facility] [address], [place], [address], 02/06/2025 18:30:19 02/07/20 25 02/06/2025 drug scree n, urine Ethanol: negati ve Not Available [facility] [address], [place], [address], 02/06/2025 18:30:19 02/07/20 25 02/06/2025 drug scree n, urine Hallucinogen s: negati ve Not Available [facility] [address], [place], [address], 02/06/2025 18:30:19 02/07/20 25 02/06/2025 drug scree n, urine Inhalants: negati ve Not Available [facility] [address], [place], [address], 02/06/2025 18:30:19 02/07/20 25 02/06/2025 drug scree n, urine Anabolic Steroids: negati ve Not Available [facility] [address], [place], [address], 02/06/2025 18:30:19 02/07/20 25 02/06/2025 drug scree n, urine Other: negati ve Not Available [facility] [address], [place], [address], 02/06/2025 18:30:19 05/15/20 25 05/15/2025 HEMOG LOBIN (HGB) HGB 10.9 g/dL (based on docume nted legal sex) 11.6-1 5.4 low Not Available [facility] (Lab) [address] [place], [address], 05/16/2025 09:55:38 05/15/2005/15/2025 HEMAT OCRIT (HCT) HCT 35.7 % (based on docume nted legal sex) 34.0-4 5.0 Not Available [facility] (Lab) [address] [place], [address], 05/16/2025 09:55:39 05/15/2005/15/2025 CBC W/DIF F WBC 14.6 10'3/ uL 3.5-10 .5 high Not Available [facility] (Lab) [address], [place], [address], 05/16/2025 09:55:39 05/15/2005/15/2025 CBC W/DIF F RBC 4.01 10'6/ uL (based on docume nted legal sex) 3.80-5 .20 Not Available [facility] (Lab) [address] [facility], [place], [address], 05/16/2025 09:55:39 05/15/2005/15/2025 CBC W/DIF F HGB 10.9 g/dL (based on docume nted legal sex) 11.6-1 5.4 low Not Available [facility] (Lab) [address] [facility], [place], [address], 05/16/2025 09:55:39 05/15/2005/15/2025 CBC W/DIF F HCT 35.7 % (based on docume nted legal sex) 34.0-4 5.0 Not Available [facility] (Lab) [address], [place], [address], 05/16/2025 09:55:39 05/15/2005/15/2025 CBC W/DIF F MCV 89.0 fL 80.0-9 9.0 Not Available [facility] (Lab) [address] [facility], [place], [address], 05/16/2025 09:55:39 05/15/2005/15/2025 CBC W/DIF F MCH 27.2 pg 27.0-3 4.0 Not Available [facility] (Lab) [address] [facility], [place], [address], 05/16/2025 09:55:39 05/15/2005/15/2025 CBC W/DIF F MCHC 30.5 g/dL 32.0-3 5.5 low Not Available [facility] (Lab) [address] [facility], [place], [address], 05/16/2025 09:55:39 05/15/2005/15/2025 CBC W/DIF F RDW 14.5 % 11.0-1 5.0 Not Available [facility] (Lab) [address] [facility], [place], [address], 05/16/2025 09:55:39 05/15/2005/15/2025 CBC W/DIF F plt 218 10'3/ uL 150-40 0 Not Available [facility] (Lab) [address] [facility], [place], [address], 05/16/2025 09:55:39 05/15/2005/15/2025 CBC W/DIF F MPV 11.1 fL 8.8-12 .1 Not Available [facility] (Lab) [address] [facility], [place], [address], 05/16/2025 09:55:39 05/15/2005/15/2025 CBC W/DIF F NRBC's 0.0 % 0.0 Not Available [facility] (Lab) [address] [facility], [place], [address], 05/16/2025 09:55:39 05/15/2005/15/2025 CBC W/DIF F absolute NRBCs 0.0 10'3/ uL no refere nce range establ ished Not Available [facility] (Lab) [address] [facility], [place], [address], 05/16/2025 09:55:39 05/15/2005/15/2025 CBC W/DIF F neutrophils 78.7 % 34.0-7 3.0 high Not Available [facility] (Lab) [address] [facility], [place], [address], 05/16/2025 09:55:39 05/15/2005/15/2025 CBC W/DIF F lymphocytes 15.0 % 15.0-5 0.0 Not Available [facility] (Lab) [address] [facility], [place], [address], 05/16/2025 09:55:39 05/15/2005/15/2025 CBC W/DIF F monocytes 4.9 % 1.0-15 .0 Not Available [facility] (Lab) [address] [facility], [place], [address], 05/16/2025 09:55:39 05/15/2005/15/2025 CBC W/DIF F eosinophils 0.6 % 0.0-8. 0 Not Available [facility] (Lab) [address] [facility], [place], [address], 05/16/2025 09:55:39 05/15/2005/15/2025 CBC W/DIF F basophils 0.3 % 0.0-2. 0 Not Available [facility] (Lab) [address] [facility], [place], [address], 05/16/2025 09:55:39 05/15/2005/15/2025 CBC W/DIF F immature granulocytes 0.5 % no define d refere nce range Immat ure Granu locyt es (IG) repre sents autom ated enume ratio n of Metam yeloc ytes, Myelo cytes and Promy elocy shlomo when IG is < 5%. Blast s are not inclu ded in IG and repor ruy separ ately if prese nt. Not Available [facility] (Lab) [address] [facility], [place], [address], 05/16/2025 09:55:39 05/15/2005/15/2025 CBC W/DIF F absolute neutrophils 11.4 10'3/ uL 1.5-8. 0 high Not Available [facility] (Lab) [address] [facility], [place], [address], 05/16/2025 09:55:39 05/15/2005/15/2025 CBC W/DIF F absolute lymphocytes 2.2 10'3/ uL 1.0-4. 0 Not Available [facility] (Lab) [address], [place], [address], 05/16/2025 09:55:39 05/15/2005/15/2025 CBC W/DIF F absolute monocytes 0.7 10'3/ uL 0.2-1. 0 Not Available [facility] (Lab) [address] [facility], [place], [address], 05/16/2025 09:55:39 05/15/2005/15/2025 CBC W/DIF F absolute eosinophils 0.1 10'3/ uL 0.0-0. 6 Not Available [facility] (Lab) [address] [facility], [place], [address], 05/16/2025 09:55:39 05/15/2005/15/2025 CBC W/DIF F absolute basophils 0.1 10'3/ uL 0.0-0. 3 Not Available [facility] (Lab) [address] [facility], [place], [address], 05/16/2025 09:55:39 05/15/2005/15/2025 CBC W/DIF F absolute [...] hyman book. nm.or g/gen derx Not Available [facility] (Lab) [address], [place], [address], 05/16/2025 09:55:39 05/15/2005/15/2025 GTT - GESTA KHANH Bryce KNIGHTTracie Janel, ACOG OB glucose, 1 hour screen 115 mg/dL 70-[address] [facility] (Lab) [address] [facility], [place], [address], 05/16/2025 09:55:40 05/15/20 25 05/15/2025 URIC ACID uric acid 4.1 mg/dL 2.3-6. 6 Not Available [facility] (Lab) [address] [place], [address], 05/16/2025 09:55:40 05/15/20 25 05/15/2025 CMP(C OMPRE HENSI VE METAB OLIC PANEL ) sodium 138 mmol/ L 133-14 6 Not Available [facility] (Lab) [address] [facility], [place], [address], 05/16/2025 09:55:41 05/15/20 25 05/15/2025 CMP(C OMPRE HENSI VE METAB OLIC PANEL ) potassium 4.1 mmol/ L 3.5-5. 1 Not Available [facility] (Lab) [address] [facility], [place], [address], 05/16/2025 09:55:41 05/15/20 25 05/15/2025 CMP(C OMPRE HENSI VE METAB OLIC PANEL ) chloride 104 mmol/ L 98-107 Not Available [facility] (Lab) [address] [place], [address], 05/16/2025 09:55:41 05/15/20 25 05/15/2025 CMP(C OMPRE HENSI VE METAB OLIC PANEL ) carbon dioxide 24 mmol/ L 21-31 Not Available [facility] (Lab) [address] [place], [address], 05/16/2025 09:55:41 05/15/20 25 05/15/2025 CMP(C OMPRE HENSI VE METAB OLIC PANEL ) anion gap 10 mmol/ L 4-13 Not Available [facility] (Lab) [address] [place], [address], 05/16/2025 09:55:41 05/15/20 25 05/15/2025 CMP(C OMPRE HENSI VE METAB OLIC PANEL ) blood urea nitrogen 7 mg/dL 7-[address] [facility] (Lab) [address] [facility], [place], [address], 05/16/2025 09:55:41 05/15/20 25 05/15/2025 CMP(C OMPRE HENSI VE METAB OLIC PANEL ) creatinine 0.55 mg/dL 0.60-1 .30 low Not Available [facility] (Lab) [address] [facility], [place], [address], 05/16/2025 09:55:41 05/15/20 25 05/15/2025 CMP(C OMPRE HENSI VE METAB OLIC PANEL ) egfrcr (CKD-epi 2020) >90 mL/mi n/1.7 3_m2 >=60 Not Available [facility] (Lab) [address] [facility], [place], [address], 05/16/2025 09:55:41 05/15/2005/15/2025 CMP(C OMPRE HENSI VE METAB OLIC PANEL ) calcium 8.7 mg/dL 8.3-10 .5 Not Available [facility] (Lab) [address] [place], [address], 05/16/2025 09:55:41 05/15/2005/15/2025 CMP(C OMPRE HENSI VE METAB OLIC PANEL ) glucose 115 mg/dL 70-100 high Not Available [facility] (Lab) [address] [place], [address], 05/16/2025 09:55:41 05/15/2005/15/2025 CMP(C OMPRE HENSI VE METAB OLIC PANEL ) protein, total 5.7 g/dL 6.4-8. 3 low Not Available [facility] (Lab) [address] [place], [address], 05/16/2025 09:55:41 05/15/20 25 05/15/2025 CMP(C OMPRE HENSI VE METAB OLIC PANEL ) albumin 3.1 g/dL 3.5-5. 0 low Not Available [facility] (Lab) [address] [facility], [place], [address], 05/16/2025 09:55:41 05/15/20 25 05/15/2025 CMP(C OMPRE HENSI VE METAB OLIC PANEL ) ALT 9 units /L 9-43 Not Available [facility] (Lab) [address] [facility], [place], [address], 05/16/2025 09:55:41 05/15/20 25 05/15/2025 CMP(C OMPRE HENSI VE METAB OLIC PANEL ) alkaline phosphatase 114 units /L 34-104 high Not Available [facility] (Lab) [address] [facility], [place], [address], 05/16/2025 09:55:41 05/15/20 25 05/15/2025 CMP(C OMPRE HENSI VE METAB OLIC PANEL ) AST 11 units /L 13-39 low Not Available [facility] (Lab) [address] [facility], [place], [address], 05/16/2025 09:55:41 05/15/2005/15/2025 CMP(C OMPRE HENSI VE METAB OLIC PANEL ) bilirubin, total 0.3 mg/dL 0.2-1. 2 Not Available [facility] (Lab) [address] [place], [address], 05/16/2025 09:55:41 05/15/2005/15/2025 HIV 1/2 ANTIG EN/AN TIBOD Y, REFLE X CONFI RMATI ON HIV antigen/anti body Nonrea ctive nonrea ctive HIV-1 antig en and HIV-1 /HIV- 2 antib odies were not detec ruy. No labor atory evide nce of HIV infec tion. Not Available [facility] (Lab) [address] [facility], [place], [address], 05/16/2025 09:55:41 05/15/20 25 05/15/2025 PROTE IN/CR EATIN INE RATIO , URINE creatinine, urine 13.0 mg/dL R-No refer ence range estab lishe d for this assay Not Available [facility] (Lab) [address] [facility], [place], [address], 05/16/2025 09:55:42 05/15/20 25 05/15/2025 PROTE IN/CR EATIN INE RATIO , URINE protein, urine <4 mg/dL R-No refer ence range estab lishe d for this assay Not Available [facility] (Lab) [address] [facility], [place], [address], 05/16/2025 09:55:42 05/15/20 25 05/15/2025 PROTE IN/CR [...] fican t prote inuri a. Not Available [facility] (Lab) [address] [facility], [place], [address], 05/16/2025 09:55:42 05/15/20 25 05/15/2025 RPR SCREE N, REFLE X TITER /CONF IRMAT ION RPR qualitative Nonrea ctive nonrea ctive Not Available [facility] (Lab) [address] [facility], [place], [address], 05/16/2025 09:55:42 06/26/20 25 06/26/2025 PROTE IN/CR EATIN INE RATIO , URINE creatinine, urine 177.6 mg/dL R-No refer ence range estab lishe d for this assay Not Available [facility] (Lab) [address] [facility], [place], [address], 06/27/2025 04:29:05 06/26/20 25 06/26/2025 PROTE IN/CR EATIN INE RATIO , URINE protein, urine 15 mg/dL R-No refer ence range estab lishe d for this assay Not Available [facility] (Lab) [address] [facility], [place], [address], 06/27/2025 04:29:05 06/26/20 25 06/26/2025 PROTE IN/CR [...] fican t prote inuri a. Not Available [facility] (Lab) [address] [facility], [place], [address], 06/27/2025 04:29:05 06/26/20 25 06/26/2025 CBC W/DIF F WBC 13.4 10'3/ uL 3.5-10 .5 high Not Available [facility] (Lab) [address] [facility], [place], [address], 06/27/2025 04:29:05 06/26/20 25 06/26/2025 CBC W/DIF F RBC 4.22 10'6/ uL (based on docume nted legal sex) 3.80-5 .20 Not Available [facility] (Lab) [address] [facility], [place], [address], 06/27/2025 04:29:05 06/26/20 25 06/26/2025 CBC W/DIF F HGB 11.9 g/dL (based on docume nted legal sex) 11.6-1 5.4 Not Available [facility] (Lab) [address] [facility], [place], [address], 06/27/2025 04:29:05 06/26/2006/26/2025 CBC W/DIF F HCT 37.5 % (based on docume nted legal sex) 34.0-4 5.0 Not Available [facility] (Lab) [address], [place], [address], 06/27/2025 04:29:05 06/26/2006/26/2025 CBC W/DIF F MCV 88.9 fL 80.0-9 9.0 Not Available [facility] (Lab) [address], [place], [address], 06/27/2025 04:29:05 06/26/2006/26/2025 CBC W/DIF F MCH 28.2 pg 27.0-3 4.0 Not Available [facility] (Lab) [address], [place], [address], 06/27/2025 04:29:05 06/26/2006/26/2025 CBC W/DIF F MCHC 31.7 g/dL 32.0-3 5.5 low Not Available [facility] (Lab) [address], [place], [address], 06/27/2025 04:29:05 06/26/2006/26/2025 CBC W/DIF F RDW 14.6 % 11.0-1 5.0 Not Available [facility] (Lab) [address], [place], [address], 06/27/2025 04:29:05 06/26/2006/26/2025 CBC W/DIF F plt 224 10'3/ uL 150-40 0 Not Available [facility] (Lab) [address] [place], [address], 06/27/2025 04:29:05 06/26/20 25 06/26/2025 CBC W/DIF F MPV 12.2 fL 8.8-12 .1 high Not Available [facility] (Lab) [address], [place], [address], 06/27/2025 04:29:05 06/26/20 25 06/26/2025 CBC W/DIF F NRBC's 0.0 % 0.0 Not Available [facility] (Lab) [address], [place], [address], 06/27/2025 04:29:05 06/26/20 25 06/26/2025 CBC W/DIF F absolute NRBCs 0.0 10'3/ uL no refere nce range establ ished Not Available [facility] (Lab) [address], [place], [address], 06/27/2025 04:29:05 06/26/20 25 06/26/2025 CBC W/DIF F neutrophils 73.2 % 34.0-7 3.0 high Not Available [facility] (Lab) [address], [place], [address], 06/27/2025 04:29:05 06/26/20 25 06/26/2025 CBC W/DIF F lymphocytes 18.3 % 15.0-5 0.0 Not Available [facility] (Lab) [address], [place], [address], 06/27/2025 04:29:05 06/26/20 25 06/26/2025 CBC W/DIF F monocytes 7.5 % 1.0-15 .0 Not Available [facility] (Lab) [address], [place], [address], 06/27/2025 04:29:05 06/26/20 25 06/26/2025 CBC W/DIF F eosinophils 0.4 % 0.0-8. 0 Not Available [facility] (Lab) [address], [place], [address], 06/27/2025 04:29:05 06/26/20 25 06/26/2025 CBC W/DIF F basophils 0.2 % 0.0-2. 0 Not Available [facility] (Lab) [address], [place], [address], 06/27/2025 04:29:05 06/26/20 25 06/26/2025 CBC W/DIF [...] separ ately if prese nt. Not Available [facility] (Lab) [address], [place], [address], 06/27/2025 04:29:05 06/26/20 25 06/26/2025 CBC W/DIF F absolute neutrophils 9.8 10'3/ uL 1.5-8. 0 high Not Available [facility] (Lab) [address], [place], [address], 06/27/2025 04:29:05 06/26/20 25 06/26/2025 CBC W/DIF F absolute lymphocytes 2.5 10'3/ uL 1.0-4. 0 Not Available [facility] (Lab) [address], [place], [address], 06/27/2025 04:29:05 06/26/20 25 06/26/2025 CBC W/DIF F absolute monocytes 1.0 10'3/ uL 0.2-1. 0 Not Available [facility] (Lab) [address], [place], [address], 06/27/2025 04:29:05 06/26/20 25 06/26/2025 CBC W/DIF F absolute eosinophils 0.1 10'3/ uL 0.0-0. 6 Not Available [facility] (Lab) [address], [place], [address], 06/27/2025 04:29:05 06/26/20 25 06/26/2025 CBC W/DIF F absolute basophils 0.0 10'3/ uL 0.0-0. 3 Not Available [facility] (Lab) [address], [place], [address], 06/27/2025 04:29:05 06/26/2006/26/2025 CBC W/DIF F absolute immature granulocytes 0.1 10'3/ uL 0.00-0 .10 Refer ence range s for nonbi nary/ inter sex or unspe cifie d gende r patie nts have not been estab lishe d. [facility] range s estab lishe d for cisge nder patie nts and evalu ate in the clini patrice kristal xt of the indiv idual patie nt: [email or web address] :[email or web address] [email or web address] book. nm.or g/gen derx Not Available [facility] (Lab) [address], [place], [address], 06/27/2025 04:29:05 06/26/2006/26/2025 URIC ACID uric acid 4.8 mg/dL 2.3-6. 6 Not Available [facility] (Lab) [address] [place], [address], 06/27/2025 04:29:06 06/26/2006/26/2025 CMP(C OMPRE HENSI VE METAB OLIC PANEL ) sodium 138 mmol/ L 133-14 6 Not Available [facility] (Lab) [address], [place], [address], 06/27/2025 04:29:06 06/26/20 25 06/26/2025 CMP(C OMPRE HENSI VE METAB OLIC PANEL ) potassium 4.0 mmol/ L 3.5-5. 1 Not Available [facility] (Lab) [address] [place], [address], 06/27/2025 04:29:06 06/26/20 25 06/26/2025 CMP(C OMPRE HENSI VE METAB OLIC PANEL ) chloride 103 mmol/ L 98-107 Not Available [facility] (Lab) [address], [place], [address], 06/27/2025 04:29:06 06/26/20 25 06/26/2025 CMP(C OMPRE HENSI VE METAB OLIC PANEL ) carbon dioxide 26 mmol/ L 21-31 Not Available [facility] (Lab) [address], [place], [address], 06/27/2025 04:29:06 06/26/2006/26/2025 CMP(C OMPRE HENSI VE METAB OLIC PANEL ) anion gap 9 mmol/ L 4-13 Not Available [facility] (Lab) [address], [place], [address], 06/27/2025 04:29:06 06/26/2006/26/2025 CMP(C OMPRE HENSI VE METAB OLIC PANEL ) blood urea nitrogen 7 mg/dL 7-[address] [facility] (Lab) [address], [place], [address], 06/27/2025 04:29:06 06/26/20 25 06/26/2025 CMP(C OMPRE HENSI VE METAB OLIC PANEL ) creatinine 0.66 mg/dL 0.60-1 .30 Not Available [facility] (Lab) [address], [place], [address], 06/27/2025 04:29:06 06/26/2006/26/2025 CMP(C OMPRE HENSI VE METAB OLIC PANEL ) egfrcr (CKD-epi 2020) >90 mL/mi n/1.7 3_m2 >=60 Not Available [facility] (Lab) [address], [place], [address], 06/27/2025 04:29:06 06/26/20 25 06/26/2025 CMP(C OMPRE HENSI VE METAB OLIC PANEL ) calcium 9.0 mg/dL 8.3-10 .5 Not Available [facility] (Lab) [address], [place], [address], 06/27/2025 04:29:06 06/26/20 25 06/26/2025 CMP(C OMPRE HENSI VE METAB OLIC PANEL ) glucose 74 mg/dL 70-100 Not Available [facility] (Lab) [address], [place], [address], 06/27/2025 04:29:06 06/26/2006/26/2025 CMP(C OMPRE HENSI VE METAB OLIC PANEL ) protein, total 6.1 g/dL 6.4-8. 3 low Not Available [facility] (Lab) [address], [place], [address], 06/27/2025 04:29:06 06/26/20 25 06/26/2025 CMP(C OMPRE HENSI VE METAB OLIC PANEL ) albumin 3.3 g/dL 3.5-5. 0 low Not Available [facility] (Lab) [address] [place], [address], 06/27/2025 04:29:06 06/26/20 25 06/26/2025 CMP(C OMPRE HENSI VE METAB OLIC PANEL ) ALT 36 units /L 9-43 Not Available [facility] (Lab) [address] [place], [address], 06/27/2025 04:29:06 06/26/20 25 06/26/2025 CMP(C OMPRE HENSI VE METAB OLIC PANEL ) alkaline phosphatase 131 units /L 34-104 high Not Available [facility] (Lab) [address] [place], [address], 06/27/2025 04:29:06 06/26/20 25 06/26/2025 CMP(C OMPRE HENSI VE METAB OLIC PANEL ) AST 20 units /L 13-39 Not Available [facility] (Lab) [address], [place], [address], 06/27/2025 04:29:06 06/26/20 25 06/26/2025 CMP(C OMPRE HENSI VE METAB OLIC PANEL ) bilirubin, total 0.3 mg/dL 0.2-1. 2 Not Available [facility] (Lab) [address], [place], [address], 06/27/2025 04:29:06 02/07/20 25 02/06/2025 US, obste tric, nucha l trans lucen cy No observ ation record ed. [email or web address] [place] [address], [place], [address], 02/06/2025 17:26:10 02/07/20 25 02/06/2025 US, obste tric, follo w-up No observ ation record ed. [email or web address] Viv[facility] [address], [place], [address], 02/07/2025 11:49:39 03/27/20 25 03/27/2025 US, obste tric, 2nd or 3rd trime ster No observ ation record ed. [email or web address] [address], [place], [address], 03/27/2025 16:50:03 03/27/20 25 03/27/2025 US, obste tric, 2nd or 3rd trime ster No observ ation record ed. [email or web address] Vivi [address], [place], [address], 04/01/2025 20:55:55 04/24/20 25 04/24/2025 US, obste tric, follo w-up No observ ation record ed. [email or web address] [address], [place], [address], 04/24/2025 18:50:20 04/24/2004/24/2025 US, obste tric, follo w-up No observ ation record ed. [email or web address] [facility], [place], [address], 05/02/2025 18:12:06 05/05/20 25 05/05/2025 US, obste tric, limit ed No observ ation record ed. [address] [facility], [place], [address], 05/08/2025 11:23:32 05/05/20 25 05/05/2025 US, obste tric, limit ed No observ ation record ed. [address] [facility], [place], [address], 05/08/2025 11:23:15 05/06/20 25 05/05/2025 non-s tress test No observ ation record ed. [address], [place], [address], 05/14/2025 16:17:57 06/12/2006/12/2025 US, obste tric, follo w-up No observ ation record ed. [email or web address] [address], [place], [address], 06/12/2025 13:37:49 06/12/2006/12/2025 US, obste tric, follo w-up No observ ation record ed. [email or web address] Vivi [address], [place], [address], 06/14/2025 12:40:46 06/26/2006/26/2025 non-s tress test No observ ation record ed. [email or web address] [address], [place], [address], 06/26/2025 17:40:02 06/26/20 non-s tress test No observ ation record ed. [email or web address] [address], [place], [address], 06/26/2025 17:40:25 07/03/20 25 07/03/2025 US, obste tric, bioph ysica l profi le + non-s tress test No observ ation record ed. [email or web address] [address], [place], [address], 07/03/2025 10:21:51 07/03/2007/03/2025 US, obste tric, bioph ysica l profi le + non-s tress test No observ ation record ed. [email or web address] [address], [place], [address], 07/03/2025 10:36:03 07/03/2007/03/2025 non-s tress test No observ ation record ed. [address], [place], [address], 07/03/2025 17:34:00 07/03/20 non-s tress test No observ ation record ed. [email or web address] [address], [place], [address], 07/03/2025 16:02:31 07/10/20 25 07/10/2025 US, obste tric, follo w-up No observ ation record ed. [email or web address] Vivi [address], [place], [address], 07/10/2025 11:53:53 07/10/20 25 07/10/2025 US, obste tric, follo w-up No observ ation record ed. [email or web address] [address], [place], [address], 07/10/2025 13:24:28 07/10/20 25 07/10/2025 US, obste tric, bioph ysica l profi le + non-s tress test No observ ation record ed. [email or web address] [address], [place], [address], 07/10/2025 13:24:41 07/10/20 25 07/10/2025 non-s tress test No observ ation record ed. [email or web address] [address], [place], [address], 07/10/2025 16:54:42 07/10/20 non-s tress test No observ ation record ed. [address], [place], [address], 07/10/2025 16:55:51 07/17/2007/17/2025 non-s tress test No observ ation record ed. [email or web address] [address], [place], [address], 07/19/2025 11:50:49 07/17/20 non-s tress test No observ ation record ed. [address], [place], [address], 07/17/2025 10:56:47 07/17/20 25 07/17/2025 US, obste tric, bioph ysica l profi le + non-s tress test No observ ation record ed. [email or web address] [address], [place], [address], 07/17/2025 13:24:17 07/17/20 25 07/17/2025 US, obste tric, bioph ysica l profi le + non-s tress test No observ ation record ed. [email or web address] Vivi [address], [place], [address], 07/17/2025 11:37:56 07/24/2007/24/2025 US, obste tric, bioph ysica l profi le + non-s tress test No observ ation record ed. [email or web address] Vivi [address], [place], [address], 07/24/2025 11:16:54 07/24/2007/24/2025 US, obste tric, bioph ysica l profi le + non-s tress test No observ ation record ed. [facility] [address], [place], [address], 07/24/2025 18:17:48 07/24/2007/24/2025 non-s tress test No observ ation record ed. [facility] [address], [place], [address], 07/24/2025 18:19:09 07/24/20 non-s tress test No observ ation record ed. [email or web address] [address], [place], [address], 07/24/2025 16:00:08 Result Notes None recorded. Problems Name Problem SNOMED Code Status Onset Date Resolution Date Notes Provider Name and Address Organization Details Recorded Time Pregnanc y test negative 774955159 Completed 201409/02/2020 Pregnanc y examinat ion or test, negative result;R ecorded Elsewher e: No Locat ion: [facility] S ource: EHR [employer] elena: N Practi ce ID: 0001 Grabiel lable Time: 03:15:00 PM Beverley Sun [facility] [place] - [facility] 0 17:56:19 Obesity [id number] Completed 201409/03/2020 Obesity, unspecif ied;Prac bronson ID: 0001 Beverley lopez, [facility] 0 14:20:47 Speciali zed medical examinat ion Completed 201409/02/2020 Routine gynecolo gical examinat ion;Prac bronson ID: 0001 Beverley lopez, [facility] 0 17:57:40 Screenin g for malignan t neoplasm of cervix Completed 201409/02/2020 Pap Smear;Pr actice ID: 0001 Beverley lopez, [facility] 0 17:56:38 Educatio n Completed 201409/02/2020 Family planning ;Recorde d Elsewher e: No Locat ion: [facility] S ource: E[facility] [employer] elena: N Mathieuti ce ID: 0001 Grabiel lable Time: 04:00:00 PM Beverley lopez, [facility] 0 17:55:08 Female infertil ity [id number] Completed 201410/17/2020 Infertil ity, female, of unspecif ied origin;P ractice ID: 0001 Beverley lopez, [facility] 1 10:55:45 Body mass index 30+ - obesity 180266869 Completed 201510/17/2020 Body mass index (BMI) 39.0-39. 9, adult;Re corded Elsewher e: No Locat ion: [facility] S ource: E[facility] [employer] elena: N Mathieuti ce ID: 0001 Grabiel lable Time: 11:00:00 AM Beverley Sun [facility] 1 10:55:40 Syncope and collapse [id number] Completed 201510/17/2020 Syncope and collapse ;Recorde d Elsewher e: No Locat ion: [facility] S ource: E[facility] [employer] elena: N Practi ce ID: 0001 Grabiel lable Time: 10:30:00 AM Beverley Dos Santostz jessica, [facility] 1 10:56:12 Gestatio n less than 9 weeks [id number] Completed 201509/02/2020 Less than 8 weeks gestatio n of pregnanc y;Practi ce ID: 0001 Beverley Sun jessica, [facility] 0 17:55:27 Pregnanc y, childbir th and puerperi um finding Completed 201510/17/2020 Encntr for suprvsn of normal first preg, first trimeste r;Practi ce ID: 0001 Beverley Dos Santostz jessica, [facility] 1 10:55:59 Gestatio n period, 12 weeks [id number] Completed 201509/02/2020 12 weeks gestatio n of pregnanc y;Practi ce ID: 0001 Beverley Sun null, [facility] 0 17:55:30 Pregnanc y, childbir th and puerperi um finding Completed 201509/02/2020 Encntr for suprvsn of normal first preg, second trimeste r;Practi ce ID: 0001 Beverley Dos Santostz jessica, [facility] 0 17:56:27 Gestatio n period, 32 weeks [id number] Completed 201509/02/2020 32 weeks gestatio n of pregnanc y;Practi ce ID: 0001 Beverley Dos Santostz jessica, [facility] 0 17:55:35 Pregnanc y, childbir th and puerperi um finding Completed 201509/03/2020 Encounte r for supervis ion of normal first pregnanc y, third trimeste r;Record ed Elsewher e: No Locat ion: Sally malik [facility] S ource: [facility] [employer] elena: N Practi ce ID: 0001 Grabiel lable Time: 05:30:00 PM Beverley lopez, [facility] 0 14:20:36 Gestatio n period, 33 weeks [id number] Completed 201509/02/2020 33 weeks gestatio n of pregnanc y;Record ed Elsewher e: No Locat ion: [facility] S ource: E[facility] [employer] elena: N Practi ce ID: 0001 Grabiel lable Time: 09:00:00 AM Beverley lopez, [facility] 0 17:55:39 Normal pregnanc y in [place] [id number] Completed 201509/02/2020 Encounte r for suprvsn of normal pregnanc y, third trimeste r;Practi ce ID: 0001 Beverley lopez, [facility] 0 17:56:11 Gestatio n period, 34 weeks [id number] Completed 201509/02/2020 34 weeks gestatio n of pregnanc y;Practi ce ID: 0001 Beverley lopez, [facility] 0 17:55:42 Pregnanc y-induce d hyperten tonya Completed 201503/27/2021 Gestatio nal htn w/o signific ant proteinu che, third trimeste r;Record ed Elsewher e: No Locat ion: Sally malik [facility] S ource: E[facility] [employer] elena: N Practi ce ID: 0001 Grabiel lable Time: 03:00:00 PM Beverley lopez, [facility] 1 16:36:34 Gestatio n period, 36 weeks [id number] Completed 201509/02/2020 36 weeks gestatio n of pregnanc y;Practi ce ID: 0001 Beverley lopez, [facility] 0 17:55:48 Single live from singleto n pregnanc y [id number] Completed 201509/03/2020 Single live ;Pr actice ID: 0001 Beverley lopez, [facility] 0 14:20:54 Gestatio n period, 37 weeks [id number] Completed 201509/02/2020 37 weeks gestatio n of pregnanc y;Practi ce ID: 0001 Beverley lopez, [facility] 0 17:55:50 Pregnanc y-induce d hyperten tonya Completed 201509/02/2020 Gestatio nal htn w/o signific ant proteinu che, unsp trimeste r;Practi ce ID: 0001 Beverley Sun jessica, [facility] 0 17:57:29 Hyperten sive disorder [id number] Completed 201503/27/2021 Benign hyperten tonya;Rec orded Elsewher e: No Locat ion: Sally malik [facility] S ource: EHR [employer] elena: N Practi ce ID: 0001 Grabiel lable Time: 10:30:00 AM Beverley Sun jessica [facility] 5 19:18:30 Non-prot einuric hyperten tonya of pregnanc y [id number] Completed 201510/17/2020 Gestatnl htn without signific ant protein, comp the puerp;Pr actice ID: 0001 Beverley Sun jessica [facility] 1 10:56:02 Lochia finding Completed 201510/17/2020 Encounte r for routine postpart um follow-u p;Practi ce ID: 0001 Beverley Sun jessica [facility] 1 10:55:[address] Concept Completed 201809/02/2020 Encntr for ultrasound specialist exam (general ) (routine ) w/o abn findings ;Recorde d Elsewher e: No Locat ion: Sally malik [facility] S ource: EHR [employer] elena: N Practi ce ID: 0001 Grabiel lable Time: 10:30:00 AM Beverley lopez, [facility] 0 17:56:45 Pregnanc y detectio n examinat ion Completed 201809/02/2020 Encounte r for pregnanc y test, result positive ;Practic e ID: 0001 Beverley lopez, [facility] 0 17:56:17 Uterine size for dates discrepa ncy Completed 201810/17/2020 Uterine size-malia e discrepa ncy, first trimeste r;Practi ce ID: 0001 Beverley lopez, [facility] 1 10:56:17 Secondar y amenorrh ea [id number] Completed 201810/17/2020 Secondar y amenorrh ea;Recor ded Elsewher e: No Locat ion: [facility] Practi ce ID: 0001 Grabiel lable Time: 10:30:00 AM Beverley lopez [facility] 1 10:56:05 Infectio n screenin g Completed 201809/02/2020 Encounte r for screenin g for oth infec/pa rastc diseases ;Recorde d Elsewher e: No Locat ion: [facility] S ource: EHR [employer] elena: N Practi ce ID: 0001 Grabiel lable Time: 10:30:00 AM Beverley lopez [facility] 0 17:56:03 Syphilis test finding [id number] Completed 201809/03/2020 Encntr screen for infectio ns w sexl mode of transmis s;Record ed Elsewher e: No Locat ion: [facility] S ource: E[facility] [employer] elena: N Practi ce ID: 0001 Grabiel lable Time: 10:30:00 AM Beverley lopez [facility] 0 14:20:58 Finding of viabilit y of pregnanc y [id number] Completed 201809/02/2020 Pregnanc y w inconclu sive viabilit y, unsp;Pra ctice ID: 0001 Beverley lopez, [facility] 0 17:55:21 Finding of contents of cervix [id number] Completed 201809/02/2020 Weeks of gestatio n of pregnanc y not specifie d;Practi ce ID: 0001 Beverley Sun [facility], [facility] 0 17:55:14 Threaten ed miscarri age [id number] Completed 201810/17/2020 Threaten ed ;Recorde d Elsewher e: No Locat ion: [facility] S ource: [employer] elena: N Practi ce ID: 0001 Grabiel lable Time: 12:30:00 PM Beverley Sun [facility], [facility] 1 10:56:15 Gestatio n period, 8 weeks [id number] Completed 201809/02/2020 8 weeks gestatio n of pregnanc y;Practi ce ID: 0001 Beverley Sun [facility], [facility] 0 17:55:55 Rubella screenin g status [id number] Completed 201809/02/2020 Encounte r for antenata l screenin g, unspecif ied;Benitez rded Elsewher e: No Locat ion: [facility] S ource: E[facility] [employer] elena: N Practi ce ID: 0001 Grabiel lable Time: 04:30:00 PM Beverley Sun [facility], [facility] 0 17:56:34 Antenata l screenin g Completed 201809/02/2020 Encounte r for antenata l screenin g for nuchal transluc ency;Pra ctice ID: 0001 Beverley Sun [facility], [facility] 0 17:57:11 Antenata l screenin g for malforma tion Completed 201809/02/2020 Encounte r for antenata l screenin g for malforma tions;Re corded Elsewher e: No [facility]: [facility] [employer] elena: N Practi ce ID: 0001 Grabiel lable Time: 08:15:00 AM Beverley lopez, [facility] 0 17:57:13 Gestatio n period, 29 weeks [id number] Completed 201809/02/2020 29 weeks gestatio n of pregnanc y;Record ed Elsewher e: No Locat ion: [facility] S ource: EHR [employer] elena: N Practi ce ID: 0001 Grabiel lable Time: 03:45:00 PM Beverley Sun jessica, [facility] 0 17:55:32 Clinical finding Completed 201810/17/2020 Tachycar rishi, unspecif ied;Benitez rded Elsewher e: No Locat ion: [facility] S ource: [facility] [employer] elena: N Practi ce ID: 0001 Grabiel lable Time: 11:15:00 AM Beverley lopez, [facility] 1 10:55:44 Clinical finding Completed 201809/02/2020 Obesity, unspecif ied;Benitez rded Elsewher e: No Locat ion: [facility] S ource: EHR [employer] elena: N Practi ce ID: 0001 Grabiel lable Time: 03:00:00 PM Beverley lopez, [facility] 0 17:55:24 Finding of body mass index [id number] Completed 201809/02/2020 Body mass index (BMI) 40.0-44. 9, adult;Re corded Elsewher e: No Locat ion: [facility] S ource: EHR [employer] elena: N Practi ce ID: 0001 Grabiel lable Time: 02:00:00 PM Beverley lopez [facility] 0 17:56:59 Gestatio n period, 35 weeks [id number] Completed 201809/02/2020 35 weeks gestatio n of pregnanc y;Record ed Elsewher e: No Locat ion: [facility] S ource: EHR [employer] elena: N Practi ce ID: 0001 Grabiel lable Time: 02:00:00 PM Beverley lopez [facility] 0 17:55:44 Severe obesity complica ting pregnanc y [id number] Completed 201810/17/2020 Obesity complica ting pregnanc y, third trimeste r;Record ed Elsewher e: No [facility]: E[facility] [employer] elena: N Practi ce ID: 0001 Grabiel lable Time: 03:00:00 PM Beverley lopez [facility] 1 10:56:10 Gestatio n period, 38 weeks [id number] Completed 201809/02/2020 38 weeks gestatio n of pregnanc y;Record ed Elsewher e: No Locat ion: [facility] S ource: EHR [employer] elena: N Practi ce ID: 0001 Grabiel lable Time: 11:00:00 AM Beverley lopez [facility] 0 17:55:53 Hyperten tonya in the obstetri c context Completed 201810/17/2020 Pre-exis ting essentia l htn comp pregnanc y, third trimeste r;Practi ce ID: 0001 Beverley lopez [facility] 1 10:55:52 Attentio n deficit hyperact ivity disorder [id number] Active 2024 stopped taking medicati on when found out Beverley lopez [facility] 19:38:30 Mixed anxiety and depressi ve disorder [id number] Active 2024 Beverley lopez, [facility] 19:37:00 Hyperten sive disorder 43072172 Active 2024 Medina Whitaker CNM [address], [place], [address], [facility] 17:26:39 Headache 23649085 Active 2024 Beverley lopez, [facility] 19:37:14 Pregnanc y 39906981 Active 2024 Beverley Sun [facility], [facility] 19:36:35 Mixed anxiety and depressi ve disorder 213228008 Active 2024 Beverley lopez, [facility] 19:37:00 Headache 77535423 Active 2024 Beverley Sun [facility], [facility] 19:37:14 Past pregnanc y history of gestatio nal hyperten tonya 427606677 Active 2024 pregnanc y start bASA x 2 daily Medina Whitaker CNM [address], [place], [address], [facility] 17:26:14 Attentio n deficit hyperact ivity disorder 271775579 Active 2024 stopped taking medicati on when found out Beverley Sun [facility], [facility] 19:38:30 Obesity 880743146 Active 2024 [facility] Sonya lopez, [facility] 5 20:55:07 Hyperten tonya AND/OR vomiting complica ting pregnanc y childbir th AND/OR puerperi 926837905 Active 2024 Medina Whitaker CNM [address], [place], [address], [place] [facility] 5 15:51:32 Notes:Encounter for antenata l screening of mother Recorded Elsewhere: No Location: [facility] Source: EHR Chronic: N Practice ID: [id number] Billable Time: 10:30:00 AM Encounter for screening of mother Practice ID: [id number] Encounter for screening of mother Recorded Elsewhere: No Location: [facility] Source: EHR Chronic: N Practice ID: [id number] Billable Time: 10:30:00 AM Encounter for screening of mother Practice ID: 0001 Problem Notes None recorded. Procedures Surgical History Date Name Laterality Status Provider Name and Address Organization Details Recorded Time 1 Date of Last Pap Smear completed [facility] 02/06/2025 08:37:03 1 extraction of wisdom tooth completed [facility] 02/06/2025 19:33:27 Imaging Results None recorded. [...] Prescrib ed Elsewher e: No [facility] DateTime : 08/25/20 08:06:19 AM Not [...] Prescrib ed Elsewher e: No Locat ion: [facility] odify By: rocio solorzano DateTime : 10/26/19 [...] Prescrib ed Elsewher e: No Locat ion: [facility] odify By: [email or web address] z Hiro solorzano DateTime [...] Prescrib ed Elsewher e: No Locat ion: [facility] odify By: [email or web address] Brea haley DateTime : [...] Address Organization Details Last Updated DateTime 07/03/2025 841871.91136 g 132/81 mm[Hg] Barbie Cliff [facility] 07/03/2025 11:23:56 Date Recorded Body weight Systolic And Diastolic Provider Name and Address Organization Details Last Updated DateTime 07/03/2025 537843.58699 g 132/81 mm[Hg] Zita Khoi [facility] 07/03/2025 15:58:08 Social History Question Answer Notes LastModified by Organizat ion Details LastModified Time Tobacco Smoking Status Never Smoker Beverley lopez, [facility] 03/21/2020 13:16:23 Do You Have An Advance Directive? No Information n ot available 01/07/2025 If You Are , What Was Your Level Of Alcohol Consumption Prior To ? Occasional [email or web address] Information not available 10/17/2020 Are You Blind Or Do You Have Difficulty Seeing? No [email or web address] Information n ot available 03/27/2021 What Is Your Level Of Caffeine Consumption? Occasional [email or web address] Information not available 10/17/2020 In The 14 Days Before Symptom Onset, Have You Had Close Contact With A Laboratory-confirm ed COVID-19 While That Case Was Ill? No Information n ot available 03/27/2021 In The 14 Days Before Symptom Onset, Have You Had Close Contact With A Person Who Is Under Investigation For COVID-19 While That Person Was Ill? No [email or web address] Information not available 03/27/2021 Have You Been To An Area Known To Be High Risk For COVID-19? No Information not available 03/27/2021 Are You Deaf Or Do You Have Serious Difficulty Hearing? No [email or web address] Information not available 03/27/2021 What Type Of Diet Are You Following? REGULAR [email or web address] Information n ot available 03/27/2021 What Is The Highest Grade Or Level Of School You Have Completed Or The Highest Degree You Have Received? [id number] Information not available 01/07/2025 What Was The Date Of Your Most Recent Tobacco Screening? 02/06/2025 [email or web address] Information not available 02/06/2025 Have You Ever Been Counseled For Unhealthy Alcohol Use? No [email or web address] Information not available 10/17/2020 Do You Use Protection During Sex? No Information not available 01/07/2025 Do You Use Your Seat Belt Or Car Seat Routinely? Yes [email or web address] Information not available 03/27/2021 Do You Have Smoke And Carbon Monoxide Detectors In Your Home? Yes [email or web address] Information not available 03/27/2021 How Much Tobacco Do You Smoke? No [email or web address] Information not available 03/21/2020 Do You Use Sunscreen Routinely? Yes [email or web address] Information not available 03/27/2021 Has Tobacco Cessation Counseling Been Provided? No Information not available 10/17/2020 Have You Used IV Drugs? No Information not available 01/07/2025 Do You Have Difficulty Walking Or Climbing Stairs? No [email or web address] Information not available 02/06/2025 Sex: Unknown Functional Status Question Answer Note LastModified by Organizat ion Details LastModified Time Do you use any illicit or recreational drugs? No [email or web address] Information not available 10/17/2020 Do you or have you ever used any other forms of tobacco or nicotine? No [email or web address] Information not available 10/17/2020 What is your level of alcohol consumption? None [email or web address] Information not available 02/06/2025 Do you or have you ever used smokeless tobacco? Never used smokeless tobacco Information not available 03/21/2020 Are you able to walk independently without assistance or assistive devices? YESWOREST [email or web address] Information not available 03/27/2021 Are you able to care for yourself independently? Yes [email or web address] Information not available 02/06/2025 Do you have difficulty dressing, bathing, grooming, or toileting? No [email or web address] Information not available 02/06/2025 Do you or have you ever used e-cigarettes or vape? Never used electronic cigarettes [email or web address] Information not available 03/21/2020 What is your exercise level? Occasional [email or web address] Information not available 03/21/2020 Mental Status Question Answer Note LastModified by Organization D etails LastModified Time Do you feel stressed (tense, restless, nervous, or anxious, or unable to sleep at night)? [id number] [email or web address] Information not available 03/27/2021 Family History Relationship Description Onset Age of this Age Resolved Age Notes LastModified by Organization Details LastModified Time Mother Disorder of thyroid gland [email or web address] Not available 03/21 13:15:49 Father Diabetes mellitus [email or web address] Not available 03/21 13:16:06 Maternal Grandfather Diabetes mellitus [email or web address] Not available 03/21 13:16:06 Maternal Grandmother Malignant [...] ICD10 Code Diagnosis IMO Codes Diagnosis Note [id number] Lobito Salinas MD [place] [address],[place] [address] 06/12/2025 11:17:33 06/12/2025 12:05:04 Large for gestation age fetus 412873844 O36.60X0 Z3A.31 64686556 [id number] Medina Whitaker [facility] [address] [place] [address] 06/12/2025 11:18:32 06/12/2025 14:07:15 Gestation period, 31 weeks 72798562 Z3A.31 [id number] [id number] Medina Whitaker [place] [address] [place] [address] 06/26/2025 14:50:38 06/26/2025 15:53:19 Gestation period, 33 weeks 53958736 Z3A.33 0734388 [id number] Medina Whitaker [facility] [address] [place] [address] 06/26/2025 15:32:15 06/26/2025 17:47:00 Hypertension AND/OR vomiting complicating childbirth AND/OR puerperium 611977962 O13.3 5420750 [id number] Lobito Salinas MD [place] [address] [place] [address] 07/03/2025 09:24:44 07/03/2025 10:27:55 -induced hypertension 43743943 O13.3 Z3A.34 216952 [id number] Medina Whitaker [facility] [address] [facility] [place] [address] 07/03/2025 09:24:58 07/03/2025 16:17:39 Maternal obesity complicating , childbirth and the puerperium, antepartum 8123220610 07 O99.210 [id number] rf phentermin e, ok for one more refill then must take break [id number] Medina Whitaker CNM [place] [address] [address] 07/03/2025 09:25:15 07/03/2025 11:45:20 Gestation period, 34 weeks 77264019 Z3A.34 [id number] Health Concerns Section Related Observation LastModified by Organization Detai ls LastModified Time None Recorded Concern Status LastModified by Organization Details LastModified Time None Recorded Payers Encounter Date Sequence Insurance Name Policy Number Policy [place] Covered Member ID [place]ura Member ID Guarantor Name 07/03/2025 1 [facility] [id number] Apolinar Rivers [id number] Whit Rivers Notes Date Note Type Note Provider Name and Address Organization Details Recorded Time 07/03/2025 text/html Generic HPI TemplateReported by Patient Medina Whitaker CNM [address], [place], [address], [facility] 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 Status 02/07/20 25 1 O Positive 291 Apolinar Rivers OPEN Fetus Data First Name Last Name Admitted to NICU Weight (g) Sex Living Outcome Pediatric Complications Fetus ID Race Codes Race Delivery Type [id number] Problems Problem Notes Problem Name Start Date End Date Resolution Snomed Code Not e Attention deficit hyperactivity disorder 02/06/2025 183938896 stopped taking medication when found out Past history of gestational hypertension 02/06/2025 403385612 2016 pregnancys tart bASA x 2 daily Obesity 02/07/2025 732008635 testing @ 34wks Headache 02/06/2025 69874812 Mixed anxiety and depressive disorder 02/06/2025 285638930 Hypertension AND/OR vomiting complicating childbirth AND/OR puerperium 06/26/2025 521291453 Alfa Calculation Initial Alfa Date Initial Exam [...] Weight in lbs Pre/Post Dialysis Refused Weight 289.137205965898 BP Diastolic BP Location Tested BP Systolic [...] Weight in lbs Pre/Post Dialysis Refused Weight 294.949712685377 BP Diastolic BP Location Tested BP Systolic [...] Type Weight in lbs Pre/Post Dialysis Refused 297.011229756350 BP Diastolic BP Location Tested BP Systolic [...] Type Weight in lbs Pre/Post Dialysis Refused 302.644263282473 BP Diastolic BP Location Tested BP Systolic [...] Weight in lbs Pre/Post Dialysis Refused Weight 305.027220705649 BP Diastolic BP Location Tested BP Systolic [...] Weight in lbs Pre/Post Dialysis Refused Weight 306.895528319582 BP Diastolic BP Location Tested BP Systolic [...] Weight in lbs Pre/Post Dialysis Refused Weight 305.800013152802 BP Diastolic BP Location Tested BP Systolic [...] Weight in lbs Pre/Post Dialysis Refused Weight 307.271483899583 BP Diastolic BP Location Tested BP Systolic [...] Type Weight in lbs Pre/Post Dialysis Refused 308.578219453329 BP Diastolic BP Location Tested BP Systolic BP Type 81 L arm 132 sitting Fetus Heart Rate Present Fetus Movement A Yes Comments Flowsheet Date 07/03/2025 Bunn Score Blood Edema Fundus Height Fundus Units Glucose Ketones Leukocytes Nitrite Labor Signs Protein Cervic Dilation Cervic Effacement Cervic Station Type Weight in lbs Pre/Post Dialysis Refused 308.566246862612 BP Diastolic BP Location Tested BP Systolic [...] Weight in lbs Pre/Post Dialysis Refused Weight 310.757443215649 BP Diastolic BP Location Tested BP Systolic BP Type 85 L arm 128 sitting Fetus Heart Rate Present Fetus Movement A Yes Comments Flowsheet Date 07/10/2025 Bunn Score Blood Edema Fundus Height Fundus Units Glucose Ketones Leukocytes Nitrite Labor Signs Protein Cervic Dilation Cervic Effacement Cervic Station Type Weight in lbs Pre/Post Dialysis Refused 310.009205397650 BP Diastolic BP Location Tested BP Systolic [...] Type Weight in lbs Pre/Post Dialysis Refused 311.951257436700 BP Diastolic BP Location Tested BP Systolic [...] Weight in lbs Pre/Post Dialysis Refused Weight 312.932218778797 BP Diastolic BP Location Tested BP Systolic BP Type 84 L arm 131 sitting Fetus Heart Rate Present Fetus Movement A Yes Comments Flowsheet Date 07/24/2025 Bunn Score Blood Edema Fundus Height Fundus Units Glucose Ketones Leukocytes Nitrite Labor Signs Protein Cervic Dilation Cervic Effacement Cervic Station 1cm 50% -2 Type Weight in lbs Pre/Post Dialysis Refused Weight 312.578937912108 BP Diastolic BP Location Tested BP Systolic [...]
--- OUTSIDE RECORDS SUMMARY | 2025-07-26 05:58 | XMS_ITS | Data Portability ---
Author Organization [facility] Address [address] [place] [address] Care Team Providers Care Home Health Specialist Name Role Phone HA MORTON Primary Care Provider [phone] Assessment Encounter Date Assessment Date Assessment LastModified [...] d. Imaging non-str ess test 2024 025 [email or web address] [address], [address], [place], [address], 07/24/2025 16:13:38 US, obstetr ic, biophys ical profile + non-str ess test 2024 025 [email or web address] [address], [address], [place], [address], 07/25/2025 17:14:12 non-str ess test 2024 025 [email or web address] [address], [address], [place], [address], 07/17/2025 11:18:15 , [facility] ic, biophys ical profile + non-str ess test 2024 025 [email or web address] [address], [address], [place], [address], 07/17/2025 11:18:20 Medication Orders None recorde d. Patient TargetsNo targets recorded. Patient InstructionsNo instructions recorded. Reason for Referral None Reported. Results Created Date Observation Date Name Description Value Unit Range Abnormal Flag Note LastModifiedBy Organization Detail LastModifiedTime 06/26/2006/26/2025 PROTE IN/CR EATIN INE RATIO , URINE creatinine, urine 177.6 mg/dL R-No refer ence range estab lishe d for this assay Not Available [facility] (Lab) [address], [place], [address], 06/27/2025 04:29:05 06/26/20 25 06/26/2025 PROTE IN/CR EATIN INE RATIO , URINE protein, urine 15 mg/dL R-No refer ence range estab lishe d for this assay Not Available [facility] (Lab) [address], [place], [address], 06/27/2025 04:29:05 06/26/20 25 06/26/2025 PROTE IN/CR [...] fican t prote inuri a. Not Available [facility] (Lab) [address] [facility], [place], [address], 06/27/2025 04:29:05 06/26/20 25 06/26/2025 CBC W/DIF F WBC 13.4 10'3/ uL 3.5-10 .5 high Not Available [facility] (Lab) [address] [facility], [place], [address], 06/27/2025 04:29:05 06/26/20 25 06/26/2025 CBC W/DIF F RBC 4.22 10'6/ uL (based on docume nted legal sex) 3.80-5 .20 Not Available [facility] (Lab) [address] [facility], [place], [address], 06/27/2025 04:29:05 06/26/20 25 06/26/2025 CBC W/DIF F HGB 11.9 g/dL (based on docume nted legal sex) 11.6-1 5.4 Not Available [facility] (Lab) [address] [place], [address], 06/27/2025 04:29:05 06/26/20 25 06/26/2025 CBC W/DIF F HCT 37.5 % (based on docume nted legal sex) 34.0-4 5.0 Not Available [facility] (Lab) [address] [facility], [place], [address], 06/27/2025 04:29:05 06/26/20 25 06/26/2025 CBC W/DIF F MCV 88.9 fL 80.0-9 9.0 Not Available [facility] (Lab) [address] [facility], [place], [address], 06/27/2025 04:29:05 06/26/20 25 06/26/2025 CBC W/DIF F MCH 28.2 pg 27.0-3 4.0 Not Available [facility] (Lab) [address] [facility], [place], [address], 06/27/2025 04:29:05 06/26/20 25 06/26/2025 CBC W/DIF F MCHC 31.7 g/dL 32.0-3 5.5 low Not Available [facility] (Lab) [address] [facility], [place], [address], 06/27/2025 04:29:05 06/26/20 25 06/26/2025 CBC W/DIF F RDW 14.6 % 11.0-1 5.0 Not Available [facility] (Lab) [address] [facility], [place], [address], 06/27/2025 04:29:05 06/26/20 25 06/26/2025 CBC W/DIF F plt 224 10'3/ uL 150-40 0 Not Available [facility] (Lab) [address] [facility], [place], [address], 06/27/2025 04:29:05 06/26/20 25 06/26/2025 CBC W/DIF F MPV 12.2 fL 8.8-12 .1 high Not Available [facility] (Lab) [address] [facility], [place], [address], 06/27/2025 04:29:05 06/26/20 25 06/26/2025 CBC W/DIF F NRBC's 0.0 % 0.0 Not Available [facility] (Lab) [address] [facility], [place], [address], 06/27/2025 04:29:05 06/26/20 25 06/26/2025 CBC W/DIF F absolute NRBCs 0.0 10'3/ uL no refere nce range establ ished Not Available [facility] (Lab) [address] [facility], [place], [address], 06/27/2025 04:29:05 06/26/20 25 06/26/2025 CBC W/DIF F neutrophils 73.2 % 34.0-7 3.0 high Not Available [facility] (Lab) [address] [facility], [place], [address], 06/27/2025 04:29:05 06/26/20 25 06/26/2025 CBC W/DIF F lymphocytes 18.3 % 15.0-5 0.0 Not Available [facility] (Lab) [address] [place], [address], 06/27/2025 04:29:05 06/26/20 25 06/26/2025 CBC W/DIF F monocytes 7.5 % 1.0-15 .0 Not Available [facility] (Lab) [address] [place], [address], 06/27/2025 04:29:05 06/26/20 25 06/26/2025 CBC W/DIF F eosinophils 0.4 % 0.0-8. 0 Not Available [facility] (Lab) [address] [place], [address], 06/27/2025 04:29:05 06/26/20 25 06/26/2025 CBC W/DIF F basophils 0.2 % 0.0-2. 0 Not Available [facility] (Lab) [address] [place], [address], 06/27/2025 04:29:05 06/26/20 25 06/26/2025 CBC W/DIF [...] separ ately if prese nt. Not Available [facility] (Lab) [address] [facility], [place], [address], 06/27/2025 04:29:05 06/26/20 25 06/26/2025 CBC W/DIF F absolute neutrophils 9.8 10'3/ uL 1.5-8. 0 high Not Available [facility] (Lab) [address] [facility], [place], [address], 06/27/2025 04:29:05 06/26/20 25 06/26/2025 CBC W/DIF F absolute lymphocytes 2.5 10'3/ uL 1.0-4. 0 Not Available [facility] (Lab) [address] [facility], [place], [address], 06/27/2025 04:29:05 06/26/20 25 06/26/2025 CBC W/DIF F absolute monocytes 1.0 10'3/ uL 0.2-1. 0 Not Available [facility] (Lab) [address] [facility], [place], [address], 06/27/2025 04:29:05 06/26/20 25 06/26/2025 CBC W/DIF F absolute eosinophils 0.1 10'3/ uL 0.0-0. 6 Not Available [facility] (Lab) [address] [facility], [place], [address], 06/27/2025 04:29:05 06/26/20 25 06/26/2025 CBC W/DIF F absolute basophils 0.0 10'3/ uL 0.0-0. 3 Not Available [facility] (Lab) [address] [facility], [place], [address], 06/27/2025 04:29:05 06/26/2006/26/2025 CBC W/DIF F absolute immature granulocytes 0.1 10'3/ uL 0.00-0 .10 Refer ence range s for nonbi nary/ inter sex or unspe cifie d gende r patie nts have not been estab lishe d. Pleas e [facility] table for range s estab lishe d for cisge nder patie nts and evalu ate in the clini patrice kristal xt of the indiv idual patie nt: https :[email or web address] [email or web address] book. nm.or g/gen derx Not Available [facility] (Lab) [address] [facility], [place], [address], 06/27/2025 04:29:05 06/26/2006/26/2025 URIC ACID uric acid 4.8 mg/dL 2.3-6. 6 Not Available [facility] (Lab) [address] [place], [address], 06/27/2025 04:29:06 06/26/20 25 06/26/2025 CMP(C OMPRE HENSI VE METAB OLIC PANEL ) sodium 138 mmol/ L 133-14 6 Not Available [facility] (Lab) [address] [place], [address], 06/27/2025 04:29:06 06/26/20 25 06/26/2025 CMP(C OMPRE HENSI VE METAB OLIC PANEL ) potassium 4.0 mmol/ L 3.5-5. 1 Not Available [facility] (Lab) [address] [place], [address], 06/27/2025 04:29:06 06/26/2006/26/2025 CMP(C OMPRE HENSI VE METAB OLIC PANEL ) chloride 103 mmol/ L 98-107 Not Available [facility] (Lab) [address] [place], [address], 06/27/2025 04:29:06 06/26/20 25 06/26/2025 CMP(C OMPRE HENSI VE METAB OLIC PANEL ) carbon dioxide 26 mmol/ L 21-31 Not Available [facility] (Lab) [address] [facility], [place], [address], 06/27/2025 04:29:06 06/26/20 25 06/26/2025 CMP(C OMPRE HENSI VE METAB OLIC PANEL ) anion gap 9 mmol/ L 4-13 Not Available [facility] (Lab) [address] [facility], [place], [address], 06/27/2025 04:29:06 06/26/2006/26/2025 CMP(C OMPRE HENSI VE METAB OLIC PANEL ) blood urea nitrogen 7 mg/dL 7-25 Not Available [facility] (Lab) [address] [facility], [place], [address], 06/27/2025 04:29:06 06/26/20 25 06/26/2025 CMP(C OMPRE HENSI VE METAB OLIC PANEL ) creatinine 0.66 mg/dL 0.60-1 .30 Not Available [facility] (Lab) [address] [facility], [place], [address], 06/27/2025 04:29:06 06/26/20 25 06/26/2025 CMP(C OMPRE HENSI VE METAB OLIC PANEL ) egfrcr (CKD-epi 2020) >90 mL/mi n/1.7 3_m2 >=60 Not Available [facility] (Lab) [address] [facility], [place], [address], 06/27/2025 04:29:06 06/26/2006/26/2025 CMP(C OMPRE HENSI VE METAB OLIC PANEL ) calcium 9.0 mg/dL 8.3-10 .5 Not Available [facility] (Lab) [address] [facility], [place], [address], 06/27/2025 04:29:06 06/26/20 25 06/26/2025 CMP(C OMPRE HENSI VE METAB OLIC PANEL ) glucose 74 mg/dL 70-100 Not Available [facility] (Lab) [address] [facility], [place], [address], 06/27/2025 04:29:06 06/26/20 25 06/26/2025 CMP(C OMPRE HENSI VE METAB OLIC PANEL ) protein, total 6.1 g/dL 6.4-8. 3 low Not Available [facility] (Lab) [address] [facility], [place], [address], 06/27/2025 04:29:06 06/26/20 25 06/26/2025 CMP(C OMPRE HENSI VE METAB OLIC PANEL ) albumin 3.3 g/dL 3.5-5. 0 low Not Available [facility] (Lab) [address] [facility], [place], [address], 06/27/2025 04:29:06 06/26/20 25 06/26/2025 CMP(C OMPRE HENSI VE METAB OLIC PANEL ) ALT 36 units /L 9-43 Not Available [facility] (Lab) [address] [facility], [place], [address], 06/27/2025 04:29:06 06/26/20 25 06/26/2025 CMP(C OMPRE HENSI VE METAB OLIC PANEL ) alkaline phosphatase 131 units /L 34-104 high Not Available [facility] (Lab) [address] [place], [address], 06/27/2025 04:29:06 06/26/2006/26/2025 CMP(C OMPRE HENSI VE METAB OLIC PANEL ) AST 20 units /L 13-39 Not Available [facility] (Lab) [address] [place], [address], 06/27/2025 04:29:06 06/26/20 25 06/26/2025 CMP(C OMPRE HENSI VE METAB OLIC PANEL ) bilirubin, total 0.3 mg/dL 0.2-1. 2 Not Available [facility] (Lab) [address] [facility], [place], [address], 06/27/2025 04:29:06 07/10/2007/10/2025 CULTU RE: GROUP B [...] Resul ting Lab: [facility] [address] [facility] [address] Tel: CULTU RE ----- ----- ----- --- No Group B strep isola ruy at 2 days (bailee ctive broth enhan cemen t) Not Available [facility] (Lab) [address] [facility], [place], [address], 07/13/2025 15:08:33 06/26/2006/26/2025 non-s tress test No observ ation record ed. [email or web address] [address], [place], [address], 06/26/2025 17:40:02 06/26/20 non-s tress test No observ ation record ed. [email or web address] [address], [place], [address], 06/26/2025 17:40:25 07/03/20 25 07/03/2025 US, obste tric, bioph ysica l profi le + non-s tress test No observ ation record ed. [email or web address] [address], [place], [address], 07/03/2025 10:21:51 07/03/2007/03/2025 US, obste tric, bioph ysica l profi le + non-s tress test No observ ation record ed. [email or web address] [address], [place], [address], 07/03/2025 10:36:03 07/03/2007/03/2025 non-s tress test No observ ation record ed. [address], [place], [address], 07/03/2025 17:34:00 07/03/20 non-s tress test No observ ation record ed. [email or web address], [place], [address], 07/03/2025 16:02:31 07/10/2007/10/2025 US, obste tric, follo w-up No observ ation record ed. [email or web address] [address], [place], [address], 07/10/2025 11:53:53 07/10/2007/10/2025 US, obste tric, follo w-up No observ ation record ed. [facility] [address], [place], [address], 07/10/2025 13:24:28 07/10/20 25 07/10/2025 US, obste tric, bioph ysica l profi le + non-s tress test No observ ation record ed. [facility] [address], [place], [address], 07/10/2025 13:24:41 07/10/20 25 07/10/2025 non-s tress test No observ ation record ed. [address], [place], [address], 07/10/2025 16:54:42 07/10/20 non-s tress test No observ ation record ed. [address], [place], [address], 07/10/2025 16:55:51 07/17/2007/17/2025 non-s tress test No observ ation record ed. FELICITY [address], [place], [address], 07/19/2025 11:50:49 07/17/20 non-s tress test No observ ation record ed. [address], [place], [address], 07/17/2025 10:56:47 07/17/2007/17/2025 US, obste tric, bioph ysica l profi le + non-s tress test No observ ation record ed. [email or web address] [address], [place], [address], 07/17/2025 13:24:17 07/17/20 25 07/17/2025 US, obste tric, bioph ysica l profi le + non-s tress test No observ ation record ed. [email or web address] [address], [place], [address], 07/17/2025 11:37:56 07/24/20 25 07/24/2025 US, obste tric, bioph ysica l profi le + non-s tress test No observ ation record ed. [email or web address] [address], [place], [address], 07/24/2025 11:16:54 07/24/20 25 07/24/2025 US, obste tric, bioph ysica l profi le + non-s tress test No observ ation record ed. [facility] [address], [place], [address], 07/24/2025 18:17:48 07/24/20 25 07/24/2025 non-s tress test No observ ation record ed. [facility] [address], [place], [address], 07/24/2025 18:19:09 07/24/20 25 non-s tress test No observ ation record ed. [email or web address] [address], [place], [address], 07/24/2025 16:00:08 Result Notes None recorded. Problems Name Problem SNOMED Code Status Onset Date Resolution Date Notes Provider Name and Address Organization Details Recorded Time Pregnanc y test negative 886488250 Completed 201409/02/2020 Pregnanc y examinat ion or test, negative result;R ecorded Elsewher e: No Locat ion: [facility] S ource: EHR Special Skills Officer elena: N Lincoln ce ID: 0001 Grabiel lable Time: 03:15:[address] [facility] 0 17:56:19 Obesity [id number] Completed 201409/03/2020 Obesity, unspecif ied;Mathieu bronson ID: [address] [facility] 0 14:20:47 Speciali zed medical examinat ion Completed 201409/02/2020 Routine gynecolo gical examinat ion;Mathieu knighte ID: 0001 Beverley Sun [facility] 0 17:57:40 Screenin g for malignan t neoplasm of cervix Completed 201409/02/2020 Pap Smear;Pr actice ID: [address] [facility] 0 17:56:38 Educatio n Completed 201409/02/2020 Family planning ;Recorde d Elsewher e: No [facility] ource: EHR Special Skills Officer elena: N Practi ce ID: 0001 Grabiel lable Time: 04:00:00 PM Beverley Sun jessica, [facility] 0 17:55:08 Female infertil ity [id number] Completed 201410/17/2020 Infertil itgayle, female, of unspecif ied origin;P ractice ID: 0001 Beverley Sun jessica, [facility] 1 10:55:45 Body mass index 30+ - obesity 062839188 Completed 201510/17/2020 Body mass index (BMI) 39.0-39. 9, adult;Re corded Elsewher e: No [facility]: EHR Special Skills Officer elena: N Practi ce ID: 0001 Grabiel lable Time: 11:00:00 AM Beverley Sun jessica [facility] 1 10:55:40 Syncope and collapse [id number] Completed 201510/17/2020 Syncope and collapse ;Recorde d Elsewher e: No Locat ion: [facility] S ource: EHR Special Skills Officer elena: N Practi ce ID: 0001 Grabiel lable Time: 10:30:00 AM Beverley Sun jessica [facility] 1 10:56:12 Gestatio n less than 9 weeks [id number] Completed 201509/02/2020 Less than 8 weeks gestatio n of pregnanc y;Mathieuti ce ID: 0001 Beverley Sun jessica, [facility] 0 17:55:27 Pregnanc y, childbir th and puerperi um finding Completed 201510/17/2020 Encntr for suprvsn of normal first preg, first trimeste r;Practi ce ID: 0001 Beverley lopez, [facility] 1 10:55:59 Gestatio n period, 12 weeks [id number] Completed 201509/02/2020 12 weeks gestatio n of pregnanc y;Practi ce ID: 0001 Beverley lopez, [facility] 0 17:55:30 Pregnanc y, childbir th and puerperi um finding Completed 201509/02/2020 Encntr for suprvsn of normal first preg, second trimeste r;Practi ce ID: 0001 Beverley lopez, [facility] 0 17:56:27 Gestatio n period, 32 weeks [id number] Completed 201509/02/2020 32 weeks gestatio n of pregnanc y;Practi ce ID: 0001 Beverley lopez, [facility] 0 17:55:35 Pregnanc y, childbir th and puerperi um finding Completed 201509/03/2020 Encounte r for supervis ion of normal first pregnanc y, third trimeste r;Record ed Elsewher e: No Locat ion: [facility] S ource: EHR Special Skills Officer elena: N Practi ce ID: 0001 Grabiel lable Time: 05:30:[address] [facility] 0 14:20:36 Gestatio n period, 33 weeks [id number] Completed 201509/02/2020 33 weeks gestatio n of pregnanc y;Record ed Elsewher e: No Locat ion: [facility] S ource: EHR Special Skills Officer elena: N Practi ce ID: 0001 Grabiel lable Time: 09:00:[address] [facility] 0 17:55:39 Normal pregnanc y in [place] [id number] 67043 Completed 201509/02/2020 Encounte r for suprvsn of normal pregnanc y, third trimeste r;Practi ce ID: 0001 Beverley Sun null, [facility] 0 17:56:11 Gestatio n period, 34 weeks [id number] Completed 201509/02/2020 34 weeks gestatio n of pregnanc y;Practi ce ID: 0001 Beverley Sun null, [facility] 0 17:55:42 Pregnanc y-induce d hyperten tonya Completed 201503/27/2021 Gestatio nal htn w/o signific ant proteinu che, third trimeste r;Record ed Elsewher e: No Locat ion: [facility] S ource: EHR Special Skills Officer elena: N Practi ce ID: 0001 Grabiel lable Time: 03:00:00 PM Beverley Corinne lopez, [facility] 1 16:36:34 Gestatio n period, 36 weeks [id number] Completed 201509/02/2020 36 weeks gestatio n of pregnanc y;Practi ce ID: 0001 Beverley Sun null, [facility] 0 17:55:48 Single live from singleto n pregnanc y [id number] Completed 201509/03/2020 Single live ;Pr actice ID: 0001 Beverley Sun null, [facility] 0 14:20:54 Gestatio n period, 37 weeks [id number] Completed 201509/02/2020 37 weeks gestatio n of pregnanc y;Practi ce ID: 0001 Beverley lopez, [facility] 0 17:55:50 Pregnanc y-induce d hyperten tonya Completed 201509/02/2020 Gestatio nal htn w/o signific ant proteinu che, unsp trimeste r;Practi ce ID: 0001 Beverley Corinne jessica, [facility] 0 17:57:29 Hyperten sive disorder [id number] Completed 201503/27/2021 Benign hyperten tonya;Rec orded Elsewher e: No Locat ion: [facility] S ource: EHR Special Skills Officer elena: N Practi ce ID: 0001 Grabiel lable Time: 10:30:00 AM Beverley Corinne lopez, [facility] 5 19:18:30 Non-prot einuric hyperten tonya of pregnanc y [id number] Completed 201510/17/2020 Gestatnl htn without signific ant protein, comp the puerp;Pr actice ID: 0001 Beverley Corinne jessica, [facility] 1 10:56:02 Lochia finding Completed 201510/17/2020 Encounte r for routine postpart um follow-u p;Practi ce ID: 0001 Beverley Sun [facility], [facility] 1 10:55:[address] Concept Completed 201809/02/2020 Encntr for ivory carver exam (general ) (routine ) w/o abn findings ;Recorde d Elsewher e: No Locat ion: [facility] S ource: EHR Special Skills Officer elena: N Practi ce ID: 0001 Grabiel lable Time: 10:30:00 AM Beverley Corinne jessica, [facility] 0 17:56:45 Pregnanc y detectio n examinat ion Completed 201809/02/2020 Encounte r for pregnanc y test, result positive ;Practic e ID: 0001 Beverley Sun jessica, [facility] 0 17:56:17 Uterine size for dates discrepa ncy Completed 201810/17/2020 Uterine size-malia e discrepa ncy, first trimeste r;Practi ce ID: 0001 Beverley Sun jessica, [facility] 1 10:56:17 Secondar y amenorrh ea [id number] Completed 201810/17/2020 Secondar y amenorrh ea;Recor ded Elsewher e: No Locat ion: [facility] S ource: EHR Special Skills Officer elena: N Practi ce ID: 0001 Grabiel lable Time: 10:30:00 AM Beverley Sun jessica, [facility] 1 10:56:05 Infectio n screenin g Completed 201809/02/2020 Encounte r for screenin g for oth infec/pa rastc diseases ;Recorde d Elsewher e: No Locat ion: [facility] S ource: EHR Special Skills Officer elena: N Practi ce ID: 0001 Grabiel lable Time: 10:30:00 AM Beverley Sun jessica, [facility] 0 17:56:03 Syphilis test finding [id number] Completed 201809/03/2020 Encntr screen for infectio ns w sexl mode of transmis s;Record ed Elsewher e: No Locat ion: [facility] N Practi ce ID: 0001 Grabiel lable Time: 10:30:00 AM Beverley lopez, [facility] 0 14:20:58 Finding of viabilit y of pregnanc y [id number] Completed 201809/02/2020 Pregnanc y w inconclu sive viabilit y, unsp;Pra ctice ID: 0001 Beverley Sun jessica, [facility] 0 17:55:21 Finding of contents of cervix [id number] Completed 201809/02/2020 Weeks of gestatio n of pregnanc y not specifie d;Practi ce ID: 0001 Beverley lopez, [facility] 0 17:55:14 Threaten ed miscarri age [id number] Completed 201810/17/2020 Threaten ed ;Recorde d Elsewher e: No Locat ion: [facility] S ource: EHR Special Skills Officer elena: N Practi ce ID: 0001 Grabiel lable Time: 12:30:00 PM Beverley Corinne jessica, [facility] 1 10:56:15 Gestatio n period, 8 weeks [id number] Completed 201809/02/2020 8 weeks gestatio n of pregnanc y;Practi ce ID: 0001 Beverley Sun [facility], [facility] 0 17:55:55 Rubella screenin g status [id number] Completed 201809/02/2020 Encounte r for antenata l screenin g, unspecif ied;Benitez rded Elsewher e: No [facility]: EHR Special Skills Officer elena: N Practi ce ID: 0001 Grabiel lable Time: 04:30:00 PM Beverley Corinne jessica, [facility] 0 17:56:34 Antenata l screenin g Completed 201809/02/2020 Encounte r for antenata l screenin g for nuchal transluc ency;Pra ctice ID: 0001 Beverley Sun jessica, [facility] 0 17:57:11 Antenata l screenin g for malforma tion Completed 201809/02/2020 Encounte r for antenata l screenin g for malforma tions;Re corded Elsewher e: No Locat ion: [facility] S ource: EHR Special Skills Officer elena: N Practi ce ID: [id number] Grabiel lable Time: 08:15:00 AM Beverley Corinne jessica, [facility] 0 17:57:13 Gestatio n period, 29 weeks [id number] Completed 201809/02/2020 29 weeks gestatio n of pregnanc y;Record ed Elsewher e: No Locat ion: Sally malik [facility] S ource: EHR Special Skills Officer elena: N Mathieuti ce ID: [id number] Grabiel lable Time: 03:45:00 PM Beverley Dos Santostz jessica, [facility] 0 17:55:32 Clinical finding Completed 201810/17/2020 Tachycar rishi, unspecif ied;Benitez rded Elsewher e: No [facility]: EHR Special Skills Officer elena: N Mathieuti ce ID: [id number] Grabiel lable Time: 11:15:00 AM Beverley Sun jessica, [facility] 1 10:55:44 Clinical finding Completed 201809/02/2020 Obesity, unspecif ied;Benitez rded Elsewher e: No Locat ion: Reilly helena [facility] S ource: EHR Special Skills Officer elena: N Mathieuti ce ID: [id number] Grabiel lable Time: 03:00:00 PM Beverley Sun jessica, [facility] 0 17:55:24 Finding of body mass index [id number] Completed 201809/02/2020 Body mass index (BMI) 40.0-44. 9, adult;Re corded Elsewher e: No [facility] S ource: EHR Special Skills Officer elena: N Mathieuti ce ID: [id number] Grabiel lable Time: 02:00:00 PM Beverley Sun jessica, [facility] 0 17:56:59 Gestatio n period, 35 weeks [id number] Completed 201809/02/2020 35 weeks gestatio n of pregnanc y;Record ed Elsewher e: No Locat ion: [facility] S ource: EHR Special Skills Officer elena: N Mathieuti ce ID: [id number] Grabiel lable Time: 02:00:00 PM Beverley Sun jessica, [facility] 0 17:55:44 Severe obesity complica ting pregnanc y [id number] Completed 201810/17/2020 Obesity complica ting pregnanc y, third trimeste r;Record ed Elsewher e: No Locat ion: [facility] S ource: EHR Special Skills Officer elena: N Practi ce ID: 0001 Grabiel lable Time: 03:00:00 PM Beverley lopez, [facility] 1 10:56:10 Gestatio n period, 38 weeks [id number] Completed 201809/02/2020 38 weeks gestatio n of pregnanc y;Record ed Elsewher e: No Locat ion: [facility] S ource: EHR Special Skills Officer elena: N Practi ce ID: 0001 Grabiel lable Time: 11:00:[address] [facility] 0 17:55:53 Hyperten tonya in the obstetri c context Completed 201810/17/2020 Pre-exis ting essentia l htn comp pregnanc y, third trimeste r;Practi ce ID: 0001 Beverley lopez, [facility] 1 10:55:52 Attentio n deficit hyperact ivity disorder 167317729 Active 2024 stopped taking medicati on when found out Beverley lopez [facility] 5 19:38:30 Mixed anxiety and depressi ve disorder 607432379 Active [address] [facility] 5 19:37:00 Hyperten sive disorder 42835664 Active 2024 Medina Whitaker CNM [address], [place], [address], [facility] 5 17:26:39 Headache 07003567 Active [address] [facility] 19:37:14 Pregnanc y 58667431 Active 2024 Beverley lopez, [facility] 19:36:35 Mixed anxiety and depressi ve disorder 332501734 Active 2024 Beverley lopez, [facility] 19:37:00 Headache 52832176 Active 2024 Beverley lopez, [facility] 19:37:14 Past pregnanc y history of gestatio nal hyperten tonya 251120628 Active 2024 2016 pregnanc y start bASA x 2 daily Medina Whitaker CNM [address], [place], [address], [facility] 17:26:14 Attentio n deficit hyperact ivity disorder 108920544 Active 2024 stopped taking medicati on when found out Beverley Sun [facility] 19:38:30 Obesity 986379913 Active 2024 antenata l testing @ 34wks Sonya Batista [facility] 20:55:07 Hyperten tonya AND/OR vomiting complica ting pregnanc y childbir th AND/OR puerperi 788265199 Active 2024 Medina Whitaker CNM [address], [place], [address], [facility] 15:51:32 Notes:Encounter for antenata l screening of mother Recorded Elsewhere: No Location: [facility] Source: EHR Chronic: N Practice ID: [id number] Billable Time: 10:30:00 AM Encounter for screening of mother Practice ID: [id number] Encounter for screening of mother Recorded Elsewhere: No Location: [facility] Source: EHR Chronic: N Practice ID: [id number] Billable Time: 10:30:00 AM Encounter for screening of mother Practice ID: [id number] Problem Notes None recorded. Procedures Surgical History Date Name Laterality Status Provider Name and Address Organization Details Recorded Time Date of Last Pap Smear completed [facility] 02/06/2025 08:37:03 1 extraction of wisdom tooth completed [facility] 02/06/2025 19:33:27 Imaging Results None recorded. [...] e: No Locat ion: [facility] M odify By: [email or web address] z Encoun ter [...] Fritz e: No Locat ion: Sally malik [facility] odify By: [email or web address] solorzano DateTime : 10/26/19 [...] Prescrib ed Elsewher e: No [facility] By: [email or web address] z Encoun ter DateTime [...] Prescrib ed Elsewher e: No Locat ion: [facility] odify By: smclu Encounkitty r DateTime : 07/05/20 12:34:25 PM Not [...] Address Organization Details Last Updated DateTime 07/17/2025 148171.87678 g 130/78 mm[Hg] Barbie Coronado [place] - [facility] 07/17/2025 10:53:15 Date Recorded Body height Body mass index (BMI) Body weight Systolic And Diastolic Provider Name and Address Organization Details Last Updated DateTime 07/24/2025 167.64 cm 50.4 kg/m2 446717.82 g 131/84 mm[Hg] Barbie Coronado [facility] 07/24/2025 10:38:14 Date Recorded Body height Body mass index (BMI) Body weight Systolic And Diastolic Provider Name and Address Organization Details Last Updated DateTime 07/24/2025 167.64 cm 50.4 kg/m2 757393.82 g 131/84 mm[Hg] Zita Diallogayle [facility] 07/24/2025 15:57:46 Social History Question Answer Notes LastModified by Organizat ion Details LastModified Time Tobacco Smoking Status Never Smoker Beverley lopez, [facility] 03/21/2020 13:16:23 Do You Have An Advance Directive? No Information n ot available 01/07/2025 If You Are , What Was Your Level Of Alcohol Consumption Prior To ? Occasional [email or web address] Information not available 10/17/2020 Are You Blind Or Do You Have Difficulty Seeing? No [email or web address] Information n ot available 03/27/2021 What Is Your Level Of Caffeine Consumption? Occasional [email or web address] Information not available 10/17/2020 In The 14 Days Before Symptom Onset, Have You Had Close Contact With A Laboratory-confirm ed COVID-19 While That Case Was Ill? No Information n ot available 03/27/2021 In The 14 Days Before Symptom Onset, Have You Had Close Contact With A Person Who Is Under Investigation For COVID-19 While That Person Was Ill? No [email or web address] Information not available 03/27/2021 Have You Been To An Area Known To Be High Risk For COVID-19? No [email or web address] Information not available 03/27/2021 Are You Deaf Or Do You Have Serious Difficulty Hearing? No Information not available 03/27/2021 What Type Of Diet Are You Following? REGULAR [email or web address] Information n ot available 03/27/2021 What Is The Highest Grade Or Level Of School You Have Completed Or The Highest Degree You Have Received? [id number] Information not available 01/07/2025 What Was The Date Of Your Most Recent Tobacco Screening? 02/06/2025 [email or web address] Information not available 02/06/2025 Have You Ever Been Counseled For Unhealthy Alcohol Use? No [email or web address] Information not available 10/17/2020 Do You Use Protection During Sex? No Information not available 01/07/2025 Do You Use Your Seat Belt Or Car Seat Routinely? Yes [email or web address] Information not available 03/27/2021 Do You Have Smoke And Carbon Monoxide Detectors In Your Home? Yes [email or web address] Information not available 03/27/2021 How Much Tobacco Do You Smoke? No [email or web address] Information not available 03/21/2020 Do You Use Sunscreen Routinely? Yes [email or web address] Information not available 03/27/2021 Has Tobacco Cessation Counseling Been Provided? No [email or web address] Information not available 10/17/2020 Have You Used IV Drugs? No Information not available 01/07/2025 Do You Have Difficulty Walking Or Climbing Stairs? No [email or web address] Information not available 02/06/2025 Sex: Unknown Functional Status Question Answer Note LastModified by Organizat ion Details LastModified Time Do you use any illicit or recreational drugs? No [email or web address] Information not available 10/17/2020 Do you or have you ever used any other forms of tobacco or nicotine? No [email or web address] Information not available 10/17/2020 What is your level of alcohol consumption? None [email or web address] Information not available 02/06/2025 Do you or have you ever used smokeless tobacco? Never used smokeless tobacco [email or web address] Information not available 03/21/2020 Are you able to walk independently without assistance or assistive devices? YESWOREST [email or web address] Information not available 03/27/2021 Are you able to care for yourself independently? Yes [email or web address] Information not available 02/06/2025 Do you have difficulty dressing, bathing, grooming, or toileting? No [email or web address] Information not available 02/06/2025 Do you or have you ever used e-cigarettes or vape? Never used electronic cigarettes [email or web address] Information not available 03/21/2020 What is your exercise level? Occasional [email or web address] Information not available 03/21/2020 Mental Status Question Answer Note LastModified by Organization D etails LastModified Time Do you feel stressed (tense, restless, nervous, or anxious, or unable to sleep at night)? [id number] [email or web address] Information not available 03/27/2021 Family History Relationship Description Onset Age of this Age Resolved Age Notes LastModified by Organization Details LastModified Time Mother Disorder of thyroid gland [email or web address] Not available 03/21 13:15:49 Father Diabetes mellitus [email or web address] Not available 03/21 13:16:06 Maternal Grandfather Diabetes mellitus [email or web address] Not available 03/21 13:16:06 Maternal Grandmother Malignant neoplasm of lung [email or web address] Not available 12/13 11:16:48 Medical History Condition Response Allergies (Food, seasonal, environmental ) Y Other N Drug/Latex Allergies/Reactions N Breast Cancer N Blood Transfusion N Lung Disease N Dermatologic Disorders N Defects or Inherited Disease N Breast Problem N Gestational Diabetes N Hematologic disorders N Anesthesia Complications N History of STI Y Deep Vein Thrombosis N Polycystic ovary syndrome N Anxiety Disorder Y Autoimmune disease N Arthritis N Polyps N Infertility N History of abnormal pap N Acid Reflux (GERD) N Cancer N Varicosities N Stroke N Neurologic/Epilepsy Y Endometriosis N High Cholesterol N Headaches Y Fibromyalgia N Kidney Disease N Heart Problems N Thyroid [...] ICD10 Code Diagnosis IMO Codes Diagnosis Note [id number] Medina Whitaker [facility] [address],[place] [address] 03/21/2020 12:41:56 03/21/2020 14:08:28 Gynecologic examination 67886786 Z01.419 Anxiety 66932842 F41.9 [id number] Medina Whitaker [facility] [address],[place] [address] 06/20/2020 09:04:33 06/20/2020 11:07:26 Anxiety 87351602 F41.9 Obesity 838907189 E66.9 [id number] Medina Whitaker [facility] [address],[place] [address] 09/03/2020 13:48:53 09/03/2020 14:59:04 Pruritic rash 83549265 L28.2 if does not resolve see pcp or derm Anxiety 72315857 F41.9 start zoloft reviewed se risks, if any suicidal thoughts to ED f/u med check 4 weeks Obesity 841516137 E66.9 rf phentermin e, ok for one more refill then must take break [id number] Medina Whitaker [facility] [address],[place] [address] 10/17/2020 10:26:57 10/17/2020 17:12:12 Weight loss 67300532 R63.4 finish rx then 3 mo break Anxiety 89817719 F41.9 start zoloft 75 mg reviewed se risks, if any suicidal thoughts to ED Contracept ion care management 214970457 Z30.9 continue slynd [id number] Medina Whitaker [facility] [address],[place] [address] 03/27/2021 16:13:17 03/28/2021 23:16:29 Gynecologic examination 06217066 Z01.419 [id number] Lobito Salinas MD [place] [address],[place] [address] 02/25/2022 11:20:46 02/25/2022 18:38:43 Contraception care management 846186619 Z30.9 This patient is a 37-year-ol d female who is using combined hormonal contracept essie pills In a continuous fashion. She is having irregular bleeding. We discussed different options. Thought maybe that it was too low a dose for her. She is obese and is at risk for DVT we discussed different options. Of risk is probably reasonable to continue on the low-dose contracept essie. We agreed to do withdrawal bleeds at the end of each 3-4 week cycle. She would actually prefer that versus the continuous OCPs. I asked her if she wanted a new pill with the placebo pills and she declined. We spent more than 15 minutes face-to-fa ce. More than 50% was counseling . She will continue on the current pill but have a menses With each 4 week cycle. [id number] Lobito Salinas MD [facility] [place] [address],[place] [address] 12/25/2024 14:14:07 12/25/2024 14:48:44 screening 407649022 Z36.87 Z3A.01 [id number] Lobito Salinas MD [place] [address],[place] [address] 01/07/2025 10:42:31 01/07/2025 12:03:35 Amenorrhea 48049681 N91.2 38508 this patient is an 39-year-ol d female with amenorrhea . She has a positive test and ultrasound shows a viable intrauteri ne . We talked about early care. Talked about precaution s in that included comments about diet, exercise, over-the-c ounter medication s.. We talked about vaccines. Talked about genetic screening. Talked about her ultrasound today and your ultrasound at 12 weeks. She will begin routine care. We spent 20 minutes face-to-fa ce. More than 50% was counseling . [id number] Lobito Salinas MD [facility] [place] [address],[place] [address] 01/09/2025 11:16:40 01/09/2025 12:00:27 [id number] Lobito Salinas MD [place] [address],[place] [address] 02/06/2025 10:15:17 02/06/2025 11:15:28 screening 795817407 Z36.82 Z3A.13 0712722881 [id number] [facility] [address],[place] [address] 02/06/2025 10:16:25 02/08/2025 03:59:47 state of fetus 52884732 Z34.90 4225345298 Gestation period, 13 weeks 72056616 Z3A.13 9973083 [id number] [facility] [address],[place] [address] 03/06/2025 09:32:51 03/06/2025 09:54:18 Gestation period, 17 weeks 84099885 Z3A.17 3825536 [id number] Lobito Salinas MD [place] [address],[place] [address] 03/27/2025 10:17:26 03/27/2025 11:48:59 screening for malformation 045980352 Z36.3 Z3A.20 6140257636 [id number] [facility] [address],[place] [address] 03/27/2025 10:17:53 03/27/2025 12:10:36 Gestation period, 20 weeks 59033174 Z3A.20 7997431 [id number] [facility] [address],[place] [address] 04/17/2025 09:33:41 04/22/2025 10:16:02 [id number] Lobito Salinas MD [place] [address],[place] [address] 04/24/2025 13:55:21 04/24/2025 14:56:57 Follow-up encounter 817567530 Z36.2 Z3A.24 7776658195 [id number] Medina Whitaker [facility] [address],[place] [address] 04/24/2025 13:55:53 04/24/2025 15:36:56 Gestation period, 24 weeks 712111398 Z3A.24 3529873 [id number] Medina Whitaker [facility] [address],[place] [address] 05/15/2025 09:49:32 05/15/2025 10:47:27 Gestation period, 27 weeks 22259527 Z3A.27 0429222 [id number] Medina Whitaker [place] [address],[place] [address] 05/29/2025 09:18:49 05/29/2025 09:51:39 Gestation period, 29 weeks 64069141 Z3A.29 2056294 [id number] Lobito Salinas MD [place] [address],[place] [address] 06/12/2025 11:17:33 06/12/2025 12:05:04 Large for gestation age fetus 568502422 O36.60X0 Z3A.31 71012535 [id number] Medina Whitaker [facility] [address],[place] [address] 06/12/2025 11:18:32 06/12/2025 14:07:15 Gestation period, 31 weeks 34157233 Z3A.31 4085480 [id number] [facility] [address] [place] [address] 06/26/2025 14:50:38 06/26/2025 15:53:19 Gestation period, 33 weeks 52334301 Z3A.33 4469286 [id number] [facility] [address],[place] [address] 06/26/2025 15:32:15 06/26/2025 17:47:00 Hypertension AND/OR vomiting complicating childbirth AND/OR puerperium 954058826 O13.3 9543024 [id number] Lobito Salinas MD [place] [address],[place] [address] 07/03/2025 09:24:44 07/03/2025 10:27:55 -induced hypertension 31993239 O13.3 Z3A.34 316501 [id number] [facility] [address],[place] [address] 07/03/2025 09:24:58 07/03/2025 16:17:39 Maternal obesity complicating , childbirth and the puerperium, antepartum 7685005090 07 O99.210 7001824641 rf phentermin e, ok for one more refill then must take break [id number] [facility] [address] [place] [address] 07/03/2025 09:25:15 07/03/2025 11:45:20 Gestation period, 34 weeks 54018225 Z3A.34 6280810 [id number] Lobito Salinas MD [place] [address] [place] [address] 07/10/2025 09:26:17 07/10/2025 10:22:03 Chronic hypertension complicating AND/OR reason for care during 65274493 O10.919 O36.60X0 O99.210 Z3A.35 62252741 [id number] [facility] [address] [place] [address] 07/10/2025 09:27:40 07/10/2025 17:20:31 Maternal obesity complicating , childbirth and the puerperium, antepartum 7610610205 07 O99.210 5544349901 rf phentermin e, ok for one more refill then must take break [id number] Medina Whitaker CNM [place] [address],[place] [address] 07/10/2025 09:27:58 07/10/2025 12:08:57 Gestation period, 35 weeks 36835529 Z3A.35 6009033 [id number] Lobito Salinas MD [place] [address],[place] [address] 07/17/2025 09:20:51 07/17/2025 11:18:20 -induced hypertension 74593905 O13.3 O99.213 Z3A.36 099274 [id number] MIKE OROZCO MD [place] [address],[place] [address] 07/17/2025 09:21:09 07/17/2025 11:18:15 Maternal obesity complicating , childbirth and the puerperium, antepartum 8998679686 07 O99.210 5979152016 [id number] [facility] [address],[place] [address] 07/17/2025 09:21:21 07/17/2025 11:41:53 Gestation period, 36 weeks 51352261 Z3A.36 2603353 [id number] Lobito Salinas MD [place] [address],[place] [address] 07/24/2025 09:18:30 07/24/2025 12:01:03 Maternal hypertension 813015072 O16.3 O99.210 Z3A.37 1117882 [id number] [facility] [address],[place] [address] 07/24/2025 09:18:44 07/24/2025 16:13:38 Maternal obesity complicating , childbirth and the puerperium, antepartum 7936158326 07 O99.210 3535288020 [id number] [facility] [address],[place] [address] 07/24/2025 09:18:55 07/24/2025 13:26:59 Gestation period, 37 weeks 03966096 Z3A.37 6872615 Health Concerns Section Related Observation LastModified by Organization Detai ls LastModified Time None Recorded Concern Status LastModified by Organization Details LastModified Time None Recorded Advance Directives Directive N: Payers Insurance Date Sequence Insurance Name Policy Number Policy Ventura Covered Member ID Ventura Member ID Guarantor Name 07/21/2025 1 [place] [id number] Apolinar Rivers [id number] Whit Rivers Notes Date Note Type Note Provider Name and Address Organization Details Recorded Time 07/17/2025 text/html Generic HPI TemplateReported by Patient Medina Whitaker CNM [address], [place], [address], [facility] 07/17/2025 11:30:47 07/24/2025 text/html Generic HPI TemplateReported by Patient Medina Whitaker CNM [address], [place], [address], [facility] 07/24/2025 13:05:42 OBGyn Episode Ob Episode Information Episode Created Date Number of Fetuses Patient Bloodtype Patient rh Status Prepregnancy Weight lbs Domestic Partner Domestic Partner Phone Father Name Technician Preventative Medicine Status 03/21/20 20 1 CLOSED Fetus Data First Name Last Name Admitted to NICU Weight (g) Sex Living Outcome Pediatric Complications Fetus ID Race Codes Race Delivery Type 3656.85 8704 M Full Term 2836 Vaginal Delivery Alfa Calculation Initial Alfa Date Initial Exam Date Initial Exam Provider Initial Ultrasound Date Last Menstrual Period Date Ultra Sound Weeks Gestation 0 Eighteen To Twenty Week Alfa Update Ultra Sound Date Fundal Height At Umbil Quickening Date Ultra Sound Latest Weeks Gestation Final Alfa Confirmed By Final Alfa Confirmed Date Final Alfa Date Ultra Sound Latest Days Gestation 0 0 Menstrual History Last Menstrual Date Menses Monthly On Bcp Conception Prior Menses Frequency Hcg Plus Date Menarche Onset Age Delivery Information Delivery Date Delivery Type Labor Anesthesia Weeks Gestation Incision Type Labor Labor Length Hrs Delivered By Post Complications Tubal Sterilization Discharge Date Comments 9 39 Discharge Information Feeding Method Contraceptive Method Maternal HG B and HCT Levels Ob Episode Information Episode Created Date Number of Fetuses Patient Bloodtype Patient rh Status Prepregnancy Weight lbs Domestic Partner Domestic Partner Phone Father Name Technician Preventative Medicine Status 03/21/20 20 1 CLOSED Fetus Data First Name Last Name Admitted to NICU Weight (g) Sex Living Outcome Pediatric Complications Fetus ID Race Codes Race Delivery Type 2494.75 6 F Full Term 2835 Vaginal Delivery Alfa Calculation Initial Alfa Date Initial Exam Date Initial Exam Provider Initial Ultrasound Date Last Menstrual Period Date Ultra Sound Weeks Gestation 0 Eighteen To Twenty Week Alfa Update Ultra Sound Date Fundal Height At Umbil Quickening Date Ultra Sound Latest Weeks Gestation Final Alfa Confirmed By Final Alfa Confirmed Date Final Alfa Date Ultra Sound Latest Days Gestation 0 0 Menstrual History Last Menstrual Date Menses Monthly On Bcp Conception Prior Menses Frequency Hcg Plus Date Menarche Onset Age Delivery Information Delivery Date Delivery Type Labor Anesthesia Weeks Gestation Incision Type Labor Labor Length Hrs Delivered By Post Complications Tubal Sterilization Discharge Date Comments 6 37.1 GHTN Discharge Information Feeding Method Contraceptive Method Maternal HG B and HCT Levels Ob Episode Information Episode Created Date Number of Fetuses Patient Bloodtype Patient rh Status Prepregnancy Weight lbs Domestic Partner Domestic Partner Phone Father Name Technician Preventative Medicine Status 02/07/20 25 1 O Positive 291 Apolinar Rivers OPEN Fetus Data First Name Last Name Admitted to NICU Weight (g) Sex Living Outcome Pediatric Complications Fetus ID Race Codes Race Delivery Type [id number] Problems Problem Notes Problem Name Start Date End Date Resolution Snomed Code Not e Attention deficit hyperactivity disorder 02/06/2025 149373237 stopped taking medication when found out Past history of gestational hypertension 02/06/2025 227304601 2016 pregnancys tart bASA x 2 daily Obesity 02/07/2025 708447806 testing @ 34wks Headache 02/06/2025 50627250 Mixed anxiety and depressive disorder 02/06/2025 008847780 Hypertension AND/OR vomiting complicating childbirth AND/OR puerperium 06/26/2025 119178339 Alfa Calculation Initial Alfa Date Initial Exam [...] Weight in lbs Pre/Post Dialysis Refused Weight 289.769585632900 BP Diastolic BP Location Tested BP Systolic [...] Weight in lbs Pre/Post Dialysis Refused Weight 294.218508661667 BP Diastolic BP Location Tested BP Systolic [...] Type Weight in lbs Pre/Post Dialysis Refused 297.367542432493 BP Diastolic BP Location Tested BP Systolic [...] Type Weight in lbs Pre/Post Dialysis Refused 302.974670671419 BP Diastolic BP Location Tested BP Systolic [...] Weight in lbs Pre/Post Dialysis Refused Weight 305.533422634276 BP Diastolic BP Location Tested BP Systolic [...] Weight in lbs Pre/Post Dialysis Refused Weight 306.338825317312 BP Diastolic BP Location Tested BP Systolic [...] Weight in lbs Pre/Post Dialysis Refused Weight 305.440601654331 BP Diastolic BP Location Tested BP Systolic [...] Weight in lbs Pre/Post Dialysis Refused Weight 307.006726500018 BP Diastolic BP Location Tested BP Systolic [...] Type Weight in lbs Pre/Post Dialysis Refused 308.985136437098 BP Diastolic BP Location Tested BP Systolic BP Type 81 L arm 132 sitting Fetus Heart Rate Present Fetus Movement A Yes Comments Flowsheet Date 07/03/2025 Bunn Score Blood Edema Fundus Height Fundus Units Glucose Ketones Leukocytes Nitrite Labor Signs Protein Cervic Dilation Cervic Effacement Cervic Station Type Weight in lbs Pre/Post Dialysis Refused 308.225343803370 BP Diastolic BP Location Tested BP Systolic [...] Weight in lbs Pre/Post Dialysis Refused Weight 310.750712907213 BP Diastolic BP Location Tested BP Systolic BP Type 85 L arm 128 sitting Fetus Heart Rate Present Fetus Movement A Yes Comments Flowsheet Date 07/10/2025 Bunn Score Blood Edema Fundus Height Fundus Units Glucose Ketones Leukocytes Nitrite Labor Signs Protein Cervic Dilation Cervic Effacement Cervic Station Type Weight in lbs Pre/Post Dialysis Refused 310.211102986901 BP Diastolic BP Location Tested BP Systolic [...] Type Weight in lbs Pre/Post Dialysis Refused [id number] BP Diastolic BP Location Tested BP Systolic [...] Weight in lbs Pre/Post Dialysis Refused Weight [id number] BP Diastolic BP Location Tested BP Systolic BP Type 84 L arm 131 sitting Fetus Heart Rate Present Fetus Movement A Yes Comments Flowsheet Date 07/24/2025 Bunn Score Blood Edema Fundus Height Fundus Units Glucose Ketones Leukocytes Nitrite Labor Signs Protein Cervic Dilation Cervic Effacement Cervic Station 1cm 50% -2 Type Weight in lbs Pre/Post Dialysis Refused Weight [id number] BP Diastolic BP Location Tested BP Systolic [...]
--- OUTSIDE RECORDS SUMMARY | 2025-07-26 05:58 | XMS_ITS | Clinical Summary ---
Author Organization [facility] Address [address] [place] [address] Care Team Providers Care Drying Oven Attendant Name Role Phone Unavailable Primary Care Provider Unavailabl e Source Comments [facility],non-owned Affiliates and Associated Physician Practices is amultiple site organization consisting of ambulatory clinics and hospital sitesin [place], [place], [place] and [place]. This disclosure is being madepursuant to the Care Everywhere program and may not contain all information available regarding this patient. Last updated 18.[facility] Family History Medical History Relation Name Comments Diabetes Maternal Grandfather Status: Alive Cancer Maternal Grandmother Status: Alive Diabetes Maternal Grandmother Cancer Mother Status: Alive Diabetes Paternal Grandfather Status: Relation Name Status Comments Maternal Grandfather Maternal Grandmother Mother Paternal Grandfather Social History Tobacco Use Types Packs/Day Years Used Date Smoking Tobacco: Never Alcohol Use Standard Drinks/Week Comments Yes 0 (1 standard drink = 0.6 oz pur e alcohol) Comments Unknown Sex and Gender Information Value Date Recorded Sex Assigned at Not on file Legal Sex Female 6:26 PM REAL TIME ANALYST Gender Identity Not on file Sexual Orientation Not on file Last Filed Vital Signs Vital Sign Reading Time Taken Comments Blood Pressure 116/86 07/01/2014 9:40 AM CDT Pulse 82 07/01/2014 9:40 AM CDT Temperature 36.8 C (98.3 F) 07/01/2014 9:40 AM CDT Respiratory Rate - - Oxygen Saturation - - Inhaled Oxygen Concentration - - Weight 119.2 kg (262 lb 12.8 oz) 07/01/2014 9:40 AM CDT Height 170.2 cm (5' 7) 07/01/2014 9:40 AM CDT Body Mass Index 41.16 07/01/2014 9:40 AM CDT Plan of Treatment Health Maintenance Due Date Last Done Comments HIV SCREENING 2002 HEPATITIS C SCREENING 02/18/2005 DTAP/TDAP/TD VACCINES (1 - Tdap) 2006 HEPATITIS B VACCINE (1 of 3 - 19+ 3-dose series) 2006 PAP SMEAR 02/24/2008 HPV VACCINE (1 - 3-dose SCDM series) 2014 Cervical Cancer Screening 2017 PAP with HPV 2017 DEPRESSION SCREENING 09/12/2024 COVID-19 VACCINE (1 - 2024-2 6 season) 2025 INFLUENZA VACCINE (#1) 2025 ZOSTER VACCINE (1 of 2) 2037 HIB VACCINE Aged Out No longer eligi ble based on patient's age to complete this topic MENINGOCOCCAL (Group B) VACC INE SHARED DECISION-MAKING Aged Out No longer eligibl e based on patient's age to complete this topic MENINGOCOCCAL GROUPS A/C/Y/W VACCINE Aged Out No longer eligible b ased on patient's age to complete this topic PNEUMOCOCCAL VACCINE Aged Out No long er eligible based on patient's age to complete this topic
[2025-07-26 07:36] LABS: Hematocrit 37.6 % (37.0-47.0); Hemoglobin 12.2 g/dL (12.0-15.0); Immature Granulocyte Percent A 0.6 % (0-0.5); Lymphocytes Absolute Auto 1.94 K/mm3 (0.9-3.2); Mean Corpuscular HGB Conc 32.4 g/dl (32-36); Mean Corpuscular Hemoglobin 28.6 pg (26-34); Mean Corpuscular Volume 88.1 fl (80-100); Nucleated Red Blood Cells Absolute Auto 0.000 K/mm3 (0.0-0.012); Nucleated Red Blood Cells Perc 0.0 % (0.0-0.2); Platelet Count Result 174 k/mm3 (150-375); Red Blood Count 4.27 M/mm3 (4.2-5.4); White Blood Count 12.8 K/mm3 (4.5-10.0)
[2025-07-26 08:14] LABS: Syphilis IgG/IgM Antibody Non-Reactive (Nonreactive)
--- NOTE | 2025-07-26 08:28 | WPDOBADMIT ---
Obstetrics - Admit Note Admission Note: record reviewed. No pertinent additions to the history and/or any subsequent changes in the physical findings that are not consistent with the expected course of the were found. Additions to the history and/or subsequent changes in the physical findings follow. Admit for IOL, SVE /-2, AROM clear, odorless fluid, anticipate vaginal delivery
[2025-07-26] MEDS: LACTATED RINGERS 1,000 ML 125 ML IV CONT ×2 (10:17→18:14)
[2025-07-26] MEDS: OXYTOCIN 30 UNITS/NS 500 ML 30 UNITS/500 ML BAG IV CONT (10:20)
[2025-07-26] MEDS: OXYTOCIN 30 UNITS/NS 500 ML 30 UNITS/500 ML BAG 999 UNITS IV CONT (22:41)
--- NOTE | 2025-07-26 22:51 | P.PCNOB_ITS ---
OB - Vaginal Delivery Note Procedure Delivery date: 07/26/25 Events: Gestational Hypertension Induction method: AROM and Per Pitocin Protocol Delivery monitor: External FHT and External Uterine Route of delivery: Episiotomy description: None Laceration Description: None Specimen: No Quantitative Blood Loss (ml): 25 Anesthesia type: Epidural Disposition: Floor Complications: No immediate complications [place] Baby Date of : 07/26/25 Time of : 22:31 Gestational Age by Date: 37 Infant gender: Male Weight (pounds): 8 Weight (ounces): 7 presentation: vertex position: Left Occiput Anterior Placenta delivery description: Expressed Cord Vessel Description: 3 Vessels score one minute: 7 score five minutes: 9
[2025-07-26] MEDS: OXYTOCIN 30 UNITS/NS 500 ML 30 UNITS/500 ML BAG 125 UNITS IV CONT (23:10)
[2025-07-27] VITALS (14 sets, daily range): BP systolic 102–144; BP diastolic 44–93; PULSE 77–104; RESP 14–20; TEMP 36.4–37.1; O2SAT 99–100
[2025-07-27] MEDS: IBUPROFEN 600 MG TABLET PO ×2 (01:08→09:09)
--- NOTE | 2025-07-27 01:49 | OBPPTRN ---
Patient transferred to post room #281 via w/c. Support person present. Oriented to unit, room, information board, rooming in, admission packet and security measures. Patient verbalizes understanding.
[2025-07-27] MEDS: ACETAMINOPHEN 325 MG TABLET 650 MG PO (02:40)
[2025-07-27 06:54] LABS: Hematocrit 37.8 % (37.0-47.0); Hemoglobin 12.0 g/dL (12.0-15.0)
--- NOTE | 2025-07-27 08:16 | P.PNOB_ITS ---
OB - PN: Subj Subjective Date/time seen: 07/27/25 08:16 Interval history: pp day 1 breast feeding doing well desires d/c home OB - PN: Obj Data Labs 07/27/25 06:46 Labs: Laboratory Results - last 24 hr 07/26/25 07/27/25 07:30 06:46 Hgb 12.0 Hct 37.8 Blood Type O Positive Antibody Screen Negative OB - PN A/P Plan day: 1 Plan: routine care and discharge home Time Spent With Patient Time: Total time spent is greater than 50% in coordination of care (as documented) at patient's floor/unit and/or counseling patient: Review of Systems 2 Review of Systems: All systems reviewed & are unremarkable except as noted in HPI and below Exam 2 Const: General: cooperative, healthy appearing and comfortable Chest: Chest palpation & inspection: normal inspection of the chest Resp: Effort & Inspection: normal respiratory effort GI: Other: soft Skin: General skin exam: normal color Neuro: General: patient oriented x3 Extrem: General: normal to inspection Psych: Appearance: grossly normal
--- NOTE | 2025-07-27 08:18 | P.DS_ITS ---
DS: Admitting Diagnosis Discharge Date 07/27/25 Admitting Diagnosis IOL DS: Discharge Diagnosis Discharge Diagnosis (1) Vaginal delivery: Code(s): O80 - Encounter for full-term uncomplicated delivery Status: Acute OB - DS: Summary OB Procedures : None OB Procedures Intrapartum: Spontaneous Vag Delivery OB Procedures: : None Peripartum Data Laceration Description: None Episiotomy description: None Time Spent with Patient Time attestation: Total time spent providing and/or coordinating discharge services: DS: Data Data Completed and Pending Labs on day of discharge: Labs from last 24 hours 07/27/25 07/26/25 06:46 07:30 Hgb 12.0 Hct 37.8 Blood Type O Positive Antibody Screen Negative Discharge Plan Discharge Attending physician on discharge: Lobito Salinas Consulting providers: Medina Whitaker Discharging Clinician: Medina Whitaker Patient Disposition: Home Activity: pelvic rest Diet: regular Patient Instructions: Antibiotic Form Patient Language: [place] Stand Alone Forms: General Discharge Information Follow-up/Referrals: Medina Whitaker CNM [Certified Nurse Atmospheric Drier Tender, [employer]SE[employer]OOK] - 4 Weeks Discharge Medications: Continued cholecalciferol (vitamin D3) 125 mcg (5,000 unit) tablet,disintegrating 125 mcg PO DAILY multivitamin Tablet 1 tablet PO DAILY sumatriptan succinate 100 mg tablet See Rx Instructions PO .COMPLEX Qty: 10 2RF Rx Instructions: take 1 tab at onset of headache; if no relief, may repeat 1 tab after at least 2 hrs; max = 2 tabs/24 hrs PO docusate sodium [Colace] 100 mg capsule 100 mg PO DAILY Discontinued aspirin 81 mg capsule 162 mg PO DAILY Date of admission: 07/26/25 05:48 Primary Care Provider: Tawanda Sanders Admitting Provider: Lobito Salinas Attending physician on admission: Lobito Salinas Condition: Stable
[2025-07-27] MEDS: MULTIVIT/MIN/PREN/FOL AC/IRON TABLET 1 TAB PO (09:09)
--- NOTE | 2025-07-27 13:15 | PC.NURSE ---
Mother has concerns that will not latch now that he has taken formula from a bottle. He has a low blood glucose and required treatment per the hypoglycemia protocol. Infant was also circumcised this morning. Reviewed with mother that Tylenol and recovery post procedure can cause infants to be very sleepy for several hours. Encouraged mom to give baby more time and then try to latch again. Primary RN updated.
[2025-07-28 05:00] VITALS: BP 120/78; PULSE 95
[2025-07-28 07:39] VITALS: BP 149/83; PULSE 101; RESP 14; TEMP 36.8; O2SAT 99
--- NOTE | 2025-07-28 08:57 | P.PNOB_ITS ---
OB - PN: Subj Subjective Date/time seen: 07/28/25 08:57 Interval history: pp day 1 breast feeding doing well desires d/c home Patient comments: no complaints, pain well controlled and tolerating diet OB - PN: Obj Data Labs 07/27/25 06:46 OB - PN A/P Plan day: 2 Plan: routine care and discharge home Time Spent With Patient Time: Total time spent is greater than 50% in coordination of care (as documented) at patient's floor/unit and/or counseling patient: Exam 2 Const: General: comfortable and no acute distress Resp: Effort & Inspection: normal respiratory effort Auscultation: no rales, no rhonchi and no wheezes Cardio: Rate: regular rate Heart sounds: no click, no murmurs and no rubs GI: GI Palp: Yes Soft to palpation and No Tenderness to palpation present (GI) Auscultation: normal bowel sounds Extrem: General: normal to inspection, no pedal edema and no calf tenderness
--- NOTE | 2025-07-28 08:57 | PM.OBDSVD ---
DS: Admitting Diagnosis Discharge Date 07/28/2025 Admitting Diagnosis Term DS: Discharge Diagnosis Discharge Diagnosis (1) Term delivered: Code(s): O80 - Encounter for full-term uncomplicated delivery Status: Acute OB - DS: Summary OB Procedures : None OB Procedures Intrapartum: Spontaneous Vag Delivery OB Procedures: : None Peripartum Data Laceration Description: None Episiotomy description: None Time Spent with Patient Time attestation: Total time spent providing and/or coordinating discharge services: Discharge Plan Discharge Attending physician on discharge: Lobito Salinas Consulting providers: Medina Whitaker Discharging Clinician: Medina Whitaker Patient Disposition: Home Activity: pelvic rest Diet: regular Patient Instructions: Antibiotic Form Patient Language: Citizen Of [place] Stand Alone Forms: General Discharge Information Follow-up/Referrals: Medina Whitaker, VILLAM [Certified Nurse Asphalt Distributor Operator, [employer]OM[employer]] - 4 Weeks Discharge Medications: Continued cholecalciferol (vitamin D3) 125 mcg (5,000 unit) tablet,disintegrating 125 mcg PO DAILY multivitamin Tablet 1 tablet PO DAILY sumatriptan succinate 100 mg tablet See Rx Instructions PO .COMPLEX Qty: 10 2RF Rx Instructions: take 1 tab at onset of headache; if no relief, may repeat 1 tab after at least 2 hrs; max = 2 tabs/24 hrs PO docusate sodium [Colace] 100 mg capsule 100 mg PO DAILY Discontinued aspirin 81 mg capsule 162 mg PO DAILY Date of admission: 07/26/25 05:48 Primary Care Provider: Tawanda Sanders Admitting Provider: Lobito Salinas Attending physician on admission: Lobito Salinas Condition: Stable
== END 2025-07-28 10:13 | disposition home or self-care (01) | DRG 807 ==
LOC: ANHLDR 05:52 → ANHOB2 07-27 01:51
PROVIDERS: Advanced Practice Midwife; Admitting Provider Obstetrics & Gynecology; PCP Family Medicine; Visit Provider Obstetrics & Gynecology
DX: O13.4 Gestational [pregnancy-induced] hypertension without significant proteinuria, complicating childbirth (principal); Z37.0 Single live birth; Z3A.37 37 weeks gestation of pregnancy
CPT/HCPCS: 36415; 85014; 85018; 85025; 86593; 86850; 86900; 86901; A9270; J2590; J7120